=== PATIENT | female | born 1940 | race Caucasian/White ===

== ENCOUNTER 2020-05-03 08:21 | Outpatient (REF) | payer MEDICARE, SELFPAY ==
--- NOTE | 2020-05-03 08:26 | MM_ITS ---
EXAMINATION: MM SCREENING DIGITAL BREAST TOMOSYNTHESIS, BILATERAL CLINICAL INFORMATION: Screening. Asymptomatic. The lifetime risk of breast cancer based on the Tyrer-Cuzick Model is 2%. COMPARISON: Mammography: 05/01/2019, 04/25/2018, 04/10/2017 TECHNIQUE: Digital breast tomosynthesis is performed in both the craniocaudal and mediolateral oblique views along with computer-aided detection (CAD). Synthesized 2D images are generated from the tomosynthesis. Additional left cleavage view is provided. FINDINGS: There are scattered areas of fibroglandular density (ACR BI-RADS breast composition Category b). There are no significant masses, abnormal calcifications, or other abnormalities. No significant changes from prior exams. MM/MM tomosynthesis screening BI IMPRESSION: No mammographic evidence of malignancy. ASSESSMENT: BI-RADS 1: Negative RECOMMENDATION: Routine annual mammography screening. This patient's information was entered into a reminder system with a target due date for their next mammogram.
== END 2020-05-03 08:22 | disposition home or self-care (01) ==
LOC: HO.MAMMO 08:21
PROVIDERS: Visit Provider Family Medicine
DX: Z12.31 Encounter for screening mammogram for malignant neoplasm of breast (principal)
CPT/HCPCS: 77063; 77067

== ENCOUNTER 2020-12-16 13:07 | Inpatient (IN) | payer MEDICARE, SELFPAY ==
--- NOTE | ~2020-12-16 | XR_ITS ---
EXAMINATION: XR CHEST CLINICAL INFORMATION: SOB COMPARISON: None TECHNIQUE: 2 views of the chest were obtained. FINDINGS: There is moderate opacity in the left lung base from pleural effusion and underlying consolidation/atelectasis. There is increased interstitial/vascular markings most predominantly in the right lung. There is no right-sided pleural effusion. No right-sided consolidation seen. The heart size is likely normal. No gross bony abnormality seen. XR/XR chest 2V IMPRESSION: Moderate left lower lobe opacity likely pleural effusion with underlying consolidation/atelectasis. Increased right lung vascular/interstitial markings question edema/pneumonitis.
--- NOTE | ~2020-12-16 | CT_ITS ---
EXAMINATION: CT CHEST WITHOUT CONTRAST CLINICAL INFORMATION: Shortness of breath COMPARISON: Chest radiograph earlier today TECHNIQUE: Multidetector volumetric CT imaging of the chest was done. Axial MIP volume rendering provided. Sagittal and coronal reformatted images were obtained. This CT examination was performed using dose optimization techniques as appropriate, variously including the following: *Automated exposure control *Adjustment of mA and/or kV according to patient size (this includes techniques or standardized protocols for targeted exams where dose is matched to indication/reason for exam; i.e. extremities or head) *Use of iterative reconstruction technique DLP: 193 mGy-cm FINDINGS: This study is degraded by marked motion artifact. LUNGS AND PLEURA: Left lower lobe atelectasis/collapse with some bronchiectasis is present. Similar but much less marked changes present in the lingula. With the volume loss seen in the left hemithorax, there is mild shift of the mediastinum to the left. No focal worrisome lung masses seen. A small right effusion is present and a smaller left effusion/pleural thickening/rind is present. Mild increased interstitial markings could represent some mild CHF. MEDIASTINUM: Heart size is within normal limits. Small mediastinal lymph nodes are present. It is difficult to assess for hilar adenopathy without IV contrast. Air is present in the main pulmonary artery. Please correlate with any IV access or effusions. No distal pulmonary air emboli are seen.. AXILLA: No lymphadenopathy. UPPER ABDOMEN: Unremarkable. OSSEOUS STRUCTURES: Degenerative changes are present in the spine. CT/CT chest wo con IMPRESSION: The finding on the chest x-ray is probably accounted for by left lower lobe collapse/atelectasis. Only a small probably loculated pleural effusion is seen which wraps around the hemithorax and is of average only 7 mm thick. A small layering right pleural effusion is present. Slight increase in interstitial markings may represent mild CHF.
--- NOTE | 2020-12-16 13:16 | ED_ITS ---
HPI - SOB/Dyspnea General Chief Complaint: Dyspnea Stated Complaint: SOB Time Seen by Provider: 12/16/20 13:13 Source: patient and EMS Mode of arrival: EMS Limitations: no limitations History of Present Illness HPI Narrative: 80-year-old female with a past medical history of non-Hodgkin's lymphoma in remission (received chemo/radiation 2014-followed by oncologist ROLA), sleep apnea, cardiomyopathy, pneumonia here with complaints of chest congestion with yellow sputum and cough with some chest tightness for 2 days. Feeling generally unwell for the last several days. No fevers or chills. Spoke to her primary and referred in for further evaluation. Per EMS noted to be 91% on room air improved to 95% on 2 L of nasal cannula. Related Data Home Medications Medication Instructions Recorded Confirmed albuterol sulfate 5 mg/mL(0.5 %) 0.5 ml INHALATION BID PRN 12/16/20 12/16/20 solution for nebulization albuterol sulfate 90 mcg/actuation 2 puff PO QID PRN 12/16/20 12/16/20 aerosol inhaler aspirin 81 mg tablet,delayed 81 mg PO DAILY 12/16/20 12/16/20 release bisoprolol fumarate 5 mg tablet 0.5 tab PO DAILY 12/16/20 12/16/20 famotidine 20 mg tablet (Pepcid) 20 mg PO DAILY PRN 12/16/20 12/16/20 fluticasone fur. 200 mcg-umeclid 1 puff INHALATION DAILY 12/16/20 12/16/20 62.5 mcg-vilant 25 mcg inhalat.powder (Trelegy Ellipta) meloxicam 7.5 mg tablet 1 tab PO DAILY 12/16/20 12/16/20 multivitamin 1 tab PO DAILY 12/16/20 12/16/20 polyethylene glycol 3350 17 gram 17 g PO DAILY PRN 12/16/20 12/16/20 oral powder packet (Miralax) sodium chloride 7 % for 4 ml INHALATION BID PRN 12/16/20 12/16/20 nebulization vitamin B complex 1 tab PO DAILY 12/16/20 12/16/20 Allergies Allergy/AdvReac Type Severity Reaction Status Date / Time codeine Allergy Unknown Verified 12/16/20 14:36 fish derived [fish] Allergy Nausea and Verified 12/16/20 14:36 Vomiting Sulfa (Sulfonamide Allergy Unknown Verified 12/16/20 14:36 Antibiotics) tetanus and diphtheria Allergy Unknown Verified 12/16/20 14:36 toxoids Review of Systems Review of Systems: Yes all other systems are reviewed and are negative Constitutional: Constitutional: Reports no additional constitutional complaints, Denies body ache(s), Denies chills, Denies fever(s), Denies headache(s) and Denies weakness Eyes: Eyes: Reports no additional eye complaints and Denies change in vision ENT: Reports system reviewed and no additional complaints, except as documented, Denies dizziness, Denies headache(s), Denies nasal congestion, Denies nasal discharge and Denies neck pain Cardiovascular: Cardiovascular: Reports no additional cardiovascular complaints, Reports chest pain (chest tightness), Denies leg edema and Reports dyspnea Respiratory: Respiratory: Reports no additional respiratory complaints, Reports cough and Reports dyspnea Gastrointestinal: Gastrointestinal: Reports no additional gastrointestinal com plaints, Denies abdominal pain, Denies diarrhea, Denies nausea and Denies vomiting Genitourinary: Genitourinary: Reports no additional female genitourinary complaints and Denies urinary incontinence Musculoskeletal: Musculoskeletal: Reports no additional musculoskeletal complaints, Denies back pain, Denies arthralgias, Denies joint swelling, Denies neck pain, Denies numbness and Denies tingling Integumentary/Breasts: Skin/Breast: Reports system reviewed and no additional complaints, except as docu and Denies rash Neurologic: Reports system reviewed and no additional complaints, except as documented, Denies Abnormal speech present, Denies dizziness, Denies headache(s), Denies numbness, Denies tingling and Denies weakness [facility] Past Medical History Attestation statement: The following information was validated with the patient. Source: old records reviewed and nursing notes reviewed Medical History (Updated 12/16/20 @ 17:42 by Soheila Erazo NP) COPD (chronic obstructive pulmonary disease) Heart failure Knee abrasion Non-Hodgkin lymphoma in remission Pneumonia Stroke due to embolism TIA (transient ischemic attack) Surgical History (Updated 12/16/20 @ 13:46 by Avi Manrique) Total knee replacement status Social History Social History Advance Directives: No Advance Directives Information Provided: No Physical Exam Vital Signs: Vital Signs: Last Vital Signs Temp 98.6 F 12/16/20 15:13 Pulse 67 12/16/20 15:13 Resp 18 12/16/20 15:13 BP 139/103 H 12/16/20 15:13 Pulse Ox 100 12/16/20 15:13 Oxygen Flow Rate 2 12/16/20 13:39 Body Mass Index 27.8 Const: General: cooperative, healthy appearing, comfortable and no acute distress Orientation/consciousness: patient oriented x3 Limitations: no limitations HENMT: Head: Yes normal to inspection Ears: hearing grossly normal bilaterally General nose exam: Normal external nose present Face and sinus: Yes normal facial exam Mouth: Normal oral and palatal mucosa present Throat: Yes posterior oropharynx normal Eyes: General: appearance normal, both eyes and all related structures Pupils: Equal, round and reactive pupils present Neck: Neck: Yes normal visual inspection Chest: Chest palpation & inspection: normal inspection of the chest Resp: Other: Diminished breath sounds in the bases, upper airway congestion noted. Effort & Inspection: normal respiratory effort Cardio: Rate: regular rate Rhythm: regular rhythm Peripheral pulses: Peripheral pulses 2+ throughout GI: Inspection: Yes normal to inspection Palpation (GI): Soft to palpation and nontender Auscultation: normal bowel sounds Back/Spine/Pelvis: Thoracic/Lumbar Spine: thoracic and lumbar spine normal to inspection Skin: General skin exam: no rashes or lesions noted Neuro: General: patient oriented x3, no focal motor deficits and normal sensation to monofilament Cranial nerves: Yes Equal, round and reactive pupils present Cognition (Neuro): normal cognition Speech: No Abnormal speech present Gait exam (Neuro): Normal gait present Motor exam (neuro): 5/5 motor strength present throughout Extrem: General: Yes normal to inspection, Yes no pedal edema and Yes no calf tenderness Course Course Course Narrative: 80-year-old female here with complaints of chest tightness, mild shortness of breath, for productive cough with yellow sputum for 2 days wi th several days of malaise and generally feeling unwell. No fevers or chills. Did outpatient COVID test is negative. On arrival well appearing. Patient had some mild hypoxia for EMS but this is improved on 2 L of nasal cannula. Speaking full sentences. No respiratory distress noted. Will check chest x-ray, labs, EKG, COVID screen 1430-chest x-ray is concerning for AA moderate left lower lobe up a city with a effusion noted. Also increased right lung vasculature with interstitial markings questioning edema versus pneumonitis. No history of CHF. At on BNP. Patient walked approximately 10 steps to the bathroom and on return was very tachypneic with shortness of breath and wheezing. Improved with rest. At this time infection is suspected. Antibiotics ordered. Ordered diagnostic/therapeutic thoracentesis. Will require admission. 1515-BNP elevated. No history of same. This in addition to chest x-ray findings concerning for edema will give a small amount of Lasix. Medicine informed of need for admission. 1559-Discussed with Hue ONEAL who agreed with admission. MDM - SOB/Dyspnea Differential Diagnosis Differential diagnosis: Likely pneumonia Medical Records Attestation: I reviewed the patient's medical records. Lab Data Attestation: I reviewed the patient's lab results. Result diagrams: 12/16/20 14:12 12/16/20 14:12 Labs: Lab Results 12/16/20 12/16/20 12/16/20 Range/Units 14:12 14:12 14:12 WBC 6.5 (4.8-10.8) X10*3/uL RBC 3.36 L (4.20-5.50) X10*6/uL Hgb 10.2 L (12.0-16.0) g/dl Hct 31.3 L (37-47) % MCV 93.2 (80-98) fL MCH 30.4 (27.0-33.0) pg MCHC 32.6 (31.0-35.0) g/dl RDW 13.4 (11.0-16.0) % Plt Count 255 (160-400) X10*3/uL MPV 10.2 (9.4-12.3) fL Immature Gran % (Auto) 0.3 (0.0-0.4) % Neut % (Auto) 56.0 (45-73) % Lymph % (Auto) 32.2 (20-40) % [place] % (Auto) 7.0 (2-11) % Eos % (Auto) 3.7 (0-4) % Baso % (Auto) 0.8 (0-2) % Lymph # (Auto) 2.1 (1.2-4.9) X10*3/uL [place] # (Auto) 0.5 (0.1-1.2) X10*3/uL Eos # (Auto) 0.2 (0.0-0.4) X10*3/uL Baso # (Auto) 0.1 (0.0-0.2) X10*3/uL Abs Immat Gran (auto) 0.02 (0.00-0.03) X10*3/uL Absolute Neuts (auto) 3.7 (2.0-8.3) X10*3/uL Absolute Nucleated RBC 0.000 (0.0-0.012) X10*3/uL Nucleated RBC % (auto) 0.0 (0.0-0.2) /100WBC PT (9.9-13.0) SEC INR (0.9-1.1) APTT (24.1-38.0) SEC Sodium 140 (135-145) mmol/L Potassium 4.0 (3.3-5.1) mmol/L Chloride 111 H (96-108) mmol/L Carbon Dioxide 21 L (22-29) mmol/L Anion Gap 12 (12-20) BUN 13 (9-16) mg/dL Creatinine 0.86 (0.5-1.4) mg/dL Estim Creat Clear Calc 43.4 Estimated GFR > 60 Random Glucose 90 (60-115) mg/dL Lactic Acid (0.5-2.0) mmol/L Calcium 8.6 (8.4-10.2) mg/dL Magnesium 1.8 (1.6-2.6) mg/dL Total Bilirubin 0.5 (0.0-1.0) mg/dL Direct Bilirubin 0.2 (0.0-0.5) mg/dL AST 35 H (5-31) U/L ALT 33 H (0-31) U/L Alkaline Phosphatase 74 (39-117) U/L Troponin I High Sens 7.5 (<3.5-17.0) ng/L B-Natriuretic Peptide 1450 H (<100) pg/mL Total Protein 6.4 L (6.5-8.0) g/dL Albumin 3.7 (3.5-5.0) g/dL 08/23/21 08/23/21 Range/Units 14:12 14:12 WBC (4.8-10.8) X10*3/uL RBC (4.20-5.50) X10*6/uL Hgb (12.0-16.0) g/dl Hct (37-47) % MCV (80-98) fL MCH (27.0-33.0) pg MCHC (31.0-35.0) g/dl RDW (11.0-16.0) % Plt Count (160-400) X10*3/uL MPV (9.4-12.3) fL Immature Gran % (Auto) (0.0-0.4) % Neut % (Auto) (45-73) % Lymph % (Auto) (20-40) % [place] % (Auto) (2-11) % Eos % (Auto) (0-4) % Baso % (Auto) (0-2) % Lymph # (Auto) (1.2-4.9) X10*3/uL [place] # (Auto) (0.1-1.2) X10*3/uL Eos # (Auto) (0.0-0.4) X10*3/uL Baso # (Auto) (0.0-0.2) X10*3/uL Abs Immat Gran (auto) (0.00-0.03) X10*3/uL Absolute Neuts (auto) (2.0-8.3) X10*3/uL Absolute Nucleated RBC (0.0-0.012) X10*3/uL Nucleated RBC % (auto) (0.0-0.2) /100WBC PT 11.5 (9.9-13.0) SEC INR 1.0 (0.9-1.1) APTT 32.1 (24.1-38.0) SEC Sodium (135-145) mmol/L Potassium (3.3-5.1) mmol/L Chloride (96-108) mmol/L Carbon Dioxide (22-29) mmol/L Anion Gap (12-20) BUN (9-16) mg/dL Creatinine (0.5-1.4) mg/dL Estim Creat Clear Calc Estimated GFR Random Glucose (60-115) mg/dL Lactic Acid 0.9 (0.5-2.0) mmol/L Calcium (8.4-10.2) mg/dL Magnesium (1.6-2.6) mg/dL Total Bilirubin (0.0-1.0) mg/dL Direct Bilirubin (0.0-0.5) mg/dL AST (5-31) U/L ALT (0-31) U/L Alkaline Phosphatase (39-117) U/L Troponin I High Sens (<3.5-17.0) ng/L B-Natriuretic Peptide (<100) pg/mL Total Protein (6.5-8.0) g/dL Albumin (3.5-5.0) g/dL Imaging Data Chest x-ray: Attestation: I personally reviewed and interpreted this imaging study as follows: Radiologist's impression: [place] [id number] XRay Report Signed Patient: Chyna Hernandez MR#: [id number] : 1940 Acct:[id number] Age/Sex: 80 / F ADM Date: 12/16/20 Loc: HO.ED Attending Dr: Ordering Physician: Soheila Erazo NP Date of Service: 12/16/20 Procedure(s): XR chest 2V Accession Number(s): [id number] cc: Soheila Erazo NP~ EXAMINATION: XR CHEST CLINICAL INFORMATION: SOB COMPARISON: None TECHNIQUE: 2 views of the chest were obtained. FINDINGS: There is moderate opacity in the left lung base from pleural effusion and underlying consolidation/atelectasis. There is increased interstitial/vascular markings most predominantly in the right lung. There is no right-sided pleural effusion. No right-sided consolidation seen. The heart size is likely normal. No gross bony abnormality seen. XR/XR chest 2V IMPRESSION: Moderate left lower lobe opacity likely pleural effusion with underlying consolidation/atelectasis. ? Increased right lung vascular/interstitial markings question edema/pneumonitis. ECG Data Attestation: I personally reviewed and interpreted this ECG as follows: ECG interpretation date: 12/16/20 ECG interpretation time: 14:05 Interpretation: Normal sinus rhythm with a rate of 78, normal [place], normal QRS, normal QT Discharge Plan Discharge Clinical Impression: Pleural effusion, Shortness of breath Patient Disposition: Admitted As Inpatient
--- NOTE | 2020-12-16 13:21 | ECG_ITS ---
Test Reason : SOB Blood Pressure : / mmHG Vent. Rate : 078 BPM Atrial Rate : 078 BPM P-R Int : 152 ms QRS Dur : 090 ms QT Int : 396 ms P-R-T Axes : 052 -37 093 degrees QTc Int : 451 ms Normal sinus rhythm Left axis deviation Low voltage QRS Cannot rule out Anteroseptal infarct , age undetermined Abnormal ECG No previous ECGs available Referred By: Soheila Erazo Electronically Signed By:LAZARO LUNA
[2020-12-16 13:39] VITALS: BP 140/77; BP 148/82; PULSE 80; RESP 16; O2SAT 100; BMI 27.8
[2020-12-16 14:18] LABS: MANUAL DIFF FLAG NO
[2020-12-16 14:29] LABS: Basophils Absolute Auto 0.1 X10*3/uL (0.0-0.2); Basophils Percent Auto 0.8 % (0-2); Eosinophils Absolute Auto 0.2 X10*3/uL (0.0-0.4); Eosinophils Percent Auto 3.7 % (0-4); Hematocrit 31.3 % (37-47); Hemoglobin 10.2 g/dl (12.0-16.0); Imm Gran Abs Auto 0.02 X10*3/uL (0.00-0.03); Imm Gran Pct Auto 0.3 % (0.0-0.4); Lymphocytes Absolute Auto 2.1 X10*3/uL (1.2-4.9); Lymphocytes Percent Auto 32.2 % (20-40); Mean Corpuscular HGB Conc 32.6 g/dl (31.0-35.0); Mean Corpuscular Hemoglobin 30.4 pg (27.0-33.0); Mean Corpuscular Volume 93.2 fL (80-98); Mean Platelet Volume 10.2 fL (9.4-12.3); Monocytes Absolute Auto 0.5 X10*3/uL (0.1-1.2); Neutrophils Absolute Auto 3.7 X10*3/uL (2.0-8.3); Platelet Count 255 X10*3/uL (160-400); Red Blood Count 3.36 X10*6/uL (4.20-5.50); Red Cell Distribution Width 13.4 % (11.0-16.0); White Blood Count 6.5 X10*3/uL (4.8-10.8)
[2020-12-16 14:33] LABS: Prothrombin Time 11.5 SEC (9.9-13.0)
[2020-12-16 14:36] LABS: Lactic Acid 0.9 mmol/L (0.5-2.0)
[2020-12-16 14:40] LABS: Partial Thromboplastin Time 32.1 SEC (24.1-38.0)
[2020-12-16 14:41] LABS: Alanine Aminotransferase 33 U/L (0-31); Albumin Level 3.7 g/dL (3.5-5.0); Alkaline Phosphatase 74 U/L (39-117); Anion Gap 12 (12-20); Aspartate Amino Transferase 35 U/L (5-31); Bilirubin Direct 0.2 mg/dL (0.0-0.5); Bilirubin Total 0.5 mg/dL (0.0-1.0); Blood Urea Nitrogen 13 mg/dL (9-16); Calcium 8.6 mg/dL (8.4-10.2); Carbon Dioxide 21 mmol/L (22-29); Chloride 111 mmol/L (96-108); Creatinine Clr Calc Pharmacy 43.4; Estimated Glomerular Filt Rate > 60; Glucose Random 90 mg/dL (60-115); Magnesium 1.8 mg/dL (1.6-2.6); Sodium 140 mmol/L (135-145); Total Protein 6.4 g/dL (6.5-8.0)
[2020-12-16 14:45] LABS: Troponin-I High Sensitivity 7.5 ng/L (<3.5-17.0)
[2020-12-16] MEDS: cefTRIAXone sodium 1 GM in 0.9 % Sodium Chloride 50 ML IV (15:01)
[2020-12-16 15:02] LABS: B Type Natriuretic Peptide 1450 pg/mL (<100)
[2020-12-16 15:13] VITALS: BP 139/103; PULSE 67; RESP 18; TEMP 37; O2SAT 100
--- NOTE | 2020-12-16 15:15 | PHA.MEDREC ---
Pharmacy Consult ? Medication Reconciliation Pharmacy has completed the medication reconciliation.
--- NOTE | 2020-12-16 16:36 | PM.EVENT ---
Event Note Date of Service: 12/16/20 Event Note: Patient seen and examined independently and was present during burch portion of E/M service. Agree with midlevel's history, physical, assessment, and plan. 80F presented with sob found to have pleural effusion Pleural effusion Concern for malignant effusion Thoracentesis
--- NOTE | 2020-12-16 16:43 | PM.IMHP ---
History of Present Illness Date of Service: 12/16/20 Chief Complaint: Pleural effusion 80 year old women Presenting with increased shortness of breath. She reports around 230 this morning she felt short of breath. However she reported last she felt like she had the flu with chills and achiness. She had called her jawbone breaker today and explained her symptoms and was told to come to the ER for further evaluation. She denied recent illness, fever, chills, exposure to COVID. She does have a history of lymphoma and underwent chemotherapy and radiation 2013, since then she has had no further treatment and has been doing well. BNP was noted to be elevated at 1450 however she did not appear to be in overt heart failure. Chest x-ray showed moderate left lower lobe opacity likely pleural effusion with underlying consolidation versus atelectasis with increased right lung vasculature questioning edema versus pneumonitis. Chest CT is pending. All of her other labs within acceptable limits. Vital signs are stable. Blood pressure is mildly elevated with patient reports feeling quite anxious. She was started on ceftriaxone and azithromycin in the ER and also given a dose of IV Lasix. She will be admitted for further management and treatment of pleural effusion. Review of Systems Review of Systems: Denies any recent fever chills or decrease in appetite respiratory See HPIn cardiovascular denies chest pain gastrointestinal denies any dysphagia abdominal pain nausea vomiting or diarrhea genitourinary denies any dysuria frequency or hematuria musculoskeletal denies any joint pain or swelling neuropsych denies any weakness or seizures all other systems reviewed are negative [facility] Medical History (Updated 12/16/20 @ 17:42 by Soheila Erazo NP) COPD (chronic obstructive pulmonary disease) Heart failure Knee abrasion Non-Hodgkin lymphoma in remission Pneumonia Stroke due to embolism TIA (transient ischemic attack) Surgical History (Updated 12/16/20 @ 13:46 by Avi Manrique) Total knee replacement status Social History Housing: House Do you presently have visiting nurse or other home services: No Patient Tobacco Use Status: Former Tobacco user Tobacco use type: Cigarette Smoked in Last 30 Days: No Use of substances other than those prescribed or required for medical reasons: No Have you been hit, kicked, punched, or otherwise hurt by someone within the past year? If so, by whom?: No Do you feel safe in your current relationship?: No Current Relationship Is there a partner from a previous relationship who is making you feel unsafe now?: No Are you made to feel afraid or neglected: No Advance Directives: No Advance Directives Information Provided: No Do you have thoughts of harming others: None Do you have a plan to hurt others: No Plan Recently lost weight without trying: No How much weight loss: Not applicable Eating poorly because of decreased appetite: No Nutrition screen score: 0 Nutrition Risks: No Nutritional Risk Meds Allergies Allergy/AdvReac Type Severity Reaction Status Date / Time codeine Allergy Unknown Verified 12/16/20 14:36 fish derived [fish] Allergy Nausea and Verified 12/16/20 14:36 Vomiting Sulfa (Sulfonamide Allergy Unknown Verified 12/16/20 14:36 Antibiotics) tetanus and diphtheria Allergy Unknown Verified 12/16/20 14:36 toxoids Active Medications: Current Medications Generic Name Dose Route Start Last Admin Trade Name Freq PRN Reason Stop Dose Admin Pharmacy Consult 1 each 12/16/20 14:27 Consult Rx Perform Med Rec MISCELLANE ONCE PRN Consult order Home Medications Medication Instructions Recorded Confirmed Last Taken Type albuterol sulfate 5 mg/mL(0.5 %) 0.5 ml INHALATION BID PRN 12/16/20 12/16/20 12/16/20 History solution for nebulization albuterol sulfate 90 mcg/actuation 2 puff PO QID PRN 12/16/20 12/16/20 12/16/20 History aerosol inhaler aspirin 81 mg tablet,delayed 81 mg PO DAILY 12/16/20 12/16/20 12/15/20 History release bisoprolol fumarate 5 mg tablet 0.5 tab PO DAILY 12/16/20 12/16/20 12/15/20 History famotidine 20 mg tablet (Pepcid) 20 mg PO DAILY PRN 12/16/20 12/16/20 12/16/20 History fluticasone fur. 200 mcg-umeclid 1 puff INHALATION DAILY 12/16/20 12/16/20 12/15/20 History 62.5 mcg-vilant 25 mcg inhalat.powder (Trelegy Ellipta) meloxicam 7.5 mg tablet 1 tab PO DAILY 12/16/20 12/16/20 12/15/20 History multivitamin 1 tab PO DAILY 12/16/20 12/16/20 12/15/20 History polyethylene glycol 3350 17 gram 17 g PO DAILY PRN 12/16/20 12/16/20 Unknown History oral powder packet (Miralax) sodium chloride 7 % for 4 ml INHALATION BID PRN 12/16/20 12/16/20 12/16/20 History nebulization vitamin B complex 1 tab PO DAILY 12/16/20 12/16/20 12/15/20 History Physical Exam Vital Signs and Narrative: Vital Signs: Last Vital Signs Temp 98.6 F 12/16/20 15:13 Pulse 67 12/16/20 15:13 Resp 18 12/16/20 15:13 BP 139/103 H 12/16/20 15:13 Pulse Ox 100 12/16/20 15:13 Oxygen Flow Rate 2 12/16/20 13:39 Body Mass Index 27.8 Appearing in no acute distress head is normocephalic atraumatic eyes pupils are PERRLA sclera is anicteric mouth throat mucous membranes are intact and moist neck is supple no lymphadenopathy, no JVD noted lung sounds some coarse areas throughout otherwise clear heart regular rate rhythm, clear S1, S2 positive bowel sounds, abdomen is soft, nontender neuro patient is alert x3, no focal deficits Results Labs CBC and Chem 7: 12/17/20 06:38 12/17/20 06:38 Labs: Laboratory Results - last 24 hr 12/16/20 12/16/20 12/16/20 14:12 14:12 14:12 MCV 93.2 MCH 30.4 MCHC 32.6 RDW 13.4 Plt Count 255 MPV 10.2 Immature Gran % (Auto) 0.3 Neut % (Auto) 56.0 Lymph % (Auto) 32.2 [place] % (Auto) 7.0 Eos % (Auto) 3.7 Baso % (Auto) 0.8 Lymph # (Auto) 2.1 [place] # (Auto) 0.5 Eos # (Auto) 0.2 Baso # (Auto) 0.1 Abs Immat Gran (auto) 0.02 Absolute Neuts (auto) 3.7 Absolute Nucleated RBC 0.000 Nucleated RBC % (auto) 0.0 PT INR APTT Anion Gap 12 Estim Creat Clear Calc 43.4 Estimated GFR > 60 Random Glucose 90 Lactic Acid Calcium 8.6 Magnesium 1.8 Total Bilirubin 0.5 Direct Bilirubin 0.2 AST 35 H ALT 33 H Alkaline Phosphatase 74 Troponin I High Sens 7.5 B-Natriuretic Peptide 1450 H Total Protein 6.4 L Albumin 3.7 12/16/20 12/16/20 14:12 14:12 MCV MCH MCHC RDW Plt Count MPV Immature Gran % (Auto) Neut % (Auto) Lymph % (Auto) [place] % (Auto) Eos % (Auto) Baso % (Auto) Lymph # (Auto) [place] # (Auto) Eos # (Auto) Baso # (Auto) Abs Immat Gran (auto) Absolute Neuts (auto) Absolute Nucleated RBC Nucleated RBC % (auto) PT 11.5 INR 1.0 APTT 32.1 Anion Gap Estim Creat Clear Calc Estimated GFR Random Glucose Lactic Acid 0.9 Calcium Magnesium Total Bilirubin Direct Bilirubin AST ALT Alkaline Phosphatase Troponin I High Sens B-Natriuretic Peptide Total Protein Albumin Imaging Radiologist's Impressions: Impressions Chest X-Ray 12/16/20 13:22 IMPRESSION: Moderate left lower lobe opacity likely pleural effusion with underlying consolidation/atelectasis. Increased right lung vascular/interstitial markings question edema/pneumonitis. Assessment and Plan (1) Pleural effusion: Status: Acute 72-year-old woman presenting with increased shortness of breath Pleural effusions. scheduled for thoracentesis tomorrow INR in the morning NPO after midnight Send labs and cytology History of COPD, bronchiectasis. Will continue empiric antibiotics, follow cultures Elevated BNP. Does not however appear to be in overt heart failure Repeat BMP tomorrow Hold off on Lasix for now Elevated blood pressure reading. Likely secondary to anxiety Monitor Continue home medications COPD. Does not appear to be in overt exacerbation Continue albuterol as needed DVT prophylaxis with mechanical compression boots due to thoracentesis Quality Stroke Does the patient have a stroke diagnosis?: No VTE Prior VTE?: No VTE Risk Level:: Medical - moderate - high VTE Device Contraindication: N/A - Device Ordered VTE Drug Contraindication: Treatment Not Indicated
[2020-12-16] MEDS: Azithromycin 500 MG in 0.9 % Sodium Chloride 250 ML 125 MG IV (17:10)
[2020-12-16] MEDS: Furosemide 20 MG/2 ML VIAL IVPUSH (17:20)
[2020-12-16 18:24] LABS: Troponin-I High Sensitivity 9.2 ng/L (<3.5-17.0)
[2020-12-16] MEDS: Doxycycline Hyclate 100 MG in 0.9 % Sodium Chloride 250 ML 166.67 MG IV (19:58)
[2020-12-16 20:02] VITALS: BP 113/65; PULSE 68; RESP 18; TEMP 36.9; O2SAT 100
[2020-12-16 20:21] LABS: COVID-19 Test Negative (Negative)
[2020-12-16 21:12] VITALS: BP 127/72; PULSE 71; RESP 18; TEMP 36.9; O2SAT 98
[2020-12-16 22:34] VITALS: BP 134/72; PULSE 68; RESP 18; TEMP 36.7; O2SAT 99
--- NOTE | 2020-12-16 22:46 | PC.NURSE ---
Pt c/o irritation in R AC where PIV is established. This RN assesses for infiltration, no evidence noted. This RN established PIV in L arm. Pt reports no pain in this location. This RN removed R AC PIV. Pt VS to be assessed and charted.
[2020-12-16 23:30] VITALS: BP 116/68; PULSE 66; RESP 16; O2SAT 99
[2020-12-16 23:40] LABS: Glucose Urine UA NEG (NEG); Leukocyte Esterase Urine NEG (NEG); Nitrite Urine NEG (NEG); PH 5.5 (5.0-8.0); Specific Gravity - Urine 1.015 (1.005-1.025); Urine Blood NEG (NEG); Urine Ketones NEG (NEG); Urine Protein NEG (NEG-TRACE)
[2020-12-16 23:44] LABS: Appearance Urine CLEAR; Color Urine YELLOW
[2020-12-17] MEDS: 0.9 % Sodium Chloride Flush 3 ML SYRINGE IVFLUSH ×4 (01:35→20:38)
[2020-12-17 04:00] VITALS: BP 103/56; PULSE 75; RESP 18; TEMP 36; O2SAT 98
[2020-12-17] MEDS: Doxycycline Hyclate 100 MG in 0.9 % Sodium Chloride 250 ML 166.67 MG IV (06:14)
[2020-12-17 07:11] LABS: MANUAL DIFF FLAG NO
[2020-12-17 07:19] LABS: Basophils Absolute Auto 0.1 X10*3/uL (0.0-0.2); Basophils Percent Auto 0.9 % (0-2); Eosinophils Absolute Auto 0.4 X10*3/uL (0.0-0.4); Eosinophils Percent Auto 6.1 % (0-4); Hematocrit 30.6 % (37-47); Imm Gran Abs Auto 0.03 X10*3/uL (0.00-0.03); Imm Gran Pct Auto 0.5 % (0.0-0.4); Lymphocytes Percent Auto 34.7 % (20-40); Mean Corpuscular HGB Conc 32.7 g/dl (31.0-35.0); Mean Corpuscular Hemoglobin 30.7 pg (27.0-33.0); Mean Corpuscular Volume 93.9 fL (80-98); Mean Platelet Volume 10.5 fL (9.4-12.3); Monocytes Absolute Auto 0.5 X10*3/uL (0.1-1.2); Monocytes Percent Auto 9.2 % (2-11); Neutrophils Absolute Auto 2.9 X10*3/uL (2.0-8.3); Neutrophils Percent Auto 48.6 % (45-73); Platelet Count 220 X10*3/uL (160-400); Red Blood Count 3.26 X10*6/uL (4.20-5.50); Red Cell Distribution Width 13.4 % (11.0-16.0); White Blood Count 5.9 X10*3/uL (4.8-10.8)
[2020-12-17 07:23] LABS: INTERNATIONAL NORM RATIO 1.1 (0.9-1.1); Prothrombin Time 12.5 SEC (9.9-13.0)
[2020-12-17 07:34] LABS: Glucose, Whole Blood 97 mg/dL (60-115)
[2020-12-17 07:44] LABS: Anion Gap 15 (12-20); Blood Urea Nitrogen 13 mg/dL (9-16); Calcium 8.4 mg/dL (8.4-10.2); Carbon Dioxide 21 mmol/L (22-29); Chloride 110 mmol/L (96-108); Creatinine Clr Calc Pharmacy 43.4; Estimated Glomerular Filt Rate > 60; Glucose Random 95 mg/dL (60-115); Sodium 142 mmol/L (135-145)
[2020-12-17 08:00] VITALS: BP 126/71; PULSE 69; RESP 16; TEMP 36.1; O2SAT 96
--- NOTE | 2020-12-17 08:00 | CA_ITS ---
Transthoracic Echocardiogram Patient (Last, First, Middle): Parent, Zaira Clemente Gender: Female Date of : 1940 Age: 80 Procedure Date: 12/17/2020 Procedure Type: Transthoracic Echocardiogram Location: S3E Height: 149.86 cm Weight: 62.6 kg BSA: 1.57 m2 Heart Rate: bpm BP: 103 / 56 mmHg Trade Embalmer: Referring MD: Hue Vitale NP Symptoms: elevated BNP Study Quality: Fair ECG Rhythm: Sinus Conclusions: - The left ventricular systolic function is mildly decreased. The visually estimated ejection fraction is between 40-45%. - The basal inferior segment is akinetic. - Normal right ventricular cavity size and systolic function. - The left atrium is severely dilated. Findings Left Ventricle Normal left ventricular cavity size. There is mildly increased left ventricular wall thickness. The left ventricular systolic function is mildly decreased. The visually estimated ejection fraction is between 40-45%. There is evidence of regional wall motion abnormalities. Abnormal diastolic function is noted. Spectral Doppler is indicative of a pseudonormal filling pattern. E/E prime ratio is >15, consistent with elevated filling pressures. Wall Motion Rest Echo Findings The basal inferior segment is akinetic. Right Ventricle Normal right ventricular cavity size and systolic function. Atria The left atrium is severely dilated. Aortic Valve Normal aortic valve structure and function. There is no aortic valve stenosis. There is no aortic valve regurgitation. Mitral Valve The mitral valve appears normal. There is moderate mitral valve regurgitation. There is no mitral valve stenosis. Tricuspid Valve Normal tricuspid valve structure and function. There is mild tricuspid valve regurgitation. Great Vessels The pulmonary artery was not well visualized. There is mild dilatation of the ascending aorta. Venous The inferior vena cava is normal in size and does not collapse with inspiration. Pericardium/Pleural There is no evidence of pericardial effusion. Prior Study Comparison No prior study available for comparison. Measurements 2D Linear Measurements IVSd: 0.98 0.6-0.9/0.6-1.0 cm LVIDd: 4.55 3.9-5.3/4.2-5.9 cm LVIDd Index: 2.90 2.4-3.2/2.2-3.1 cm/m2 LVIDs: 3.64 2.0-3.6 cm LVPWd: 0.98 0.7-1.1 cm Ao Root: 3.10 2.1-3.5 cm LA Diam: 4.60 2.7-3.8/3.0-4.0 cm LAIDs Index: 2.93 1.5-2.3 cm/m2 LV Mass: 190.03 67-162/88-224 g LV Mass Index: 121.04 43-95/49-115 g/m2 LVOT Diam: 2.00 3.0+(-)1.3 cm 2D Systolic Function EF 4C: 33.30 >55% EF 2C: 47.50 >55% EF BiP: 44.00 >55% Mitral Valve MV Pk E: 0.92 MV PK A: 0.57 MV Decel Time: 242.00 E/A: 1.60 E'Lateral: 6.74 E'Medial: 3.05 E/E' Med: 30.10 E/E' Lat: 13.60 PHT: 71.00 MVA PHT: 3.10 Decel [place]: 3.79 Aortic Valve AoV Pk Dale: 1.33 AoV Mn Dale: 0.96 AoV VTI: 0.35 AoV Pk Grad: 7.00 Aov Mn Grad: 4.00 TEREZA Cont.VTI: 1.72 LVOT LVOT Pk Dale: 0.79 LVOT Mn Dale: 0.47 LVOT VTI: 0.19 LVOT Pk Grad: 2.00 LVOT Mn Grad: 1.00 LVOT Diam: 2.00 LVOT Area: 3.14 Diastolic Function MV Pk E: 0.92 MV Pk A: 0.57 E/A: 1.60 E'Medial: 3.05 E/E' Med: 30.10 E' Laterial: 6.74 E/E' Lat: 13.60 Tricuspid Valve TR Pk Dale: 3.20 TR Pk Grad: 41.00 RA Press: 8.00 RVSP: 49.00 Great Vessels Aorta Ao Root-2D: 3.10 2.0-3.7 cm Ao Asc: 3.30 2.1-3.4 cm Pulmonary Valve PV Pk Dale: 0.84 Peak PV Grad: 3.00 Updated in Other Vendor System with Status of Final Yimi Guerrero MD electronically signed on 12/17/2020 2:20:50 PM with status of Final
[2020-12-17 09:07] LABS: B Type Natriuretic Peptide 1410 pg/mL (<100)
[2020-12-17] MEDS: Furosemide 20 MG/2 ML VIAL IVPUSH (09:11)
--- NOTE | 2020-12-17 09:36 | P.CDIC_ITS ---
CDI Concurrent Query Service Date: 12/17/20 Documentation Clarification: Please clarify if you are treating a proba ble/suspected/likely or confirmed: Acute diastolic and/or systolic Congestive heart failure Acute on chronic diastolic and/or systolic Congestive heart failure Chronic diastolic and/or systolic Congestive heart failure Other, please specify if known or undetermined Provider Response: Other Other Diagnosis: To be determined, pending echo results PLEASE DO NOT DELETE/MODIFY EXISTING CONTENT Additional information is needed in order to code to the highest accuracy and appropriate Severity of Illness (SOI). Please clarify the information noted below in your progress notes and discharge summary. Risk Factors/Clinical Indicators/Treatments PN: CHF - elevated BNP Does not appear to be in overt heart failure BNP 14[address] IV lasix Chest CT 12/16 - interstitial markings may represent mild CHF. ED: PMH: heart failure CDS: Antoinette Bateman CCS, CDIS Contact Number: [phone] Please Review the information above and exercise your independent professional judgment in responding to the query. If you concur, pleas document in the PROGRESS NOTES and DISCHARGE SUMMARY. If you do not agree with the query, please document in the query above. THIS QUERY IS PART OF THE PERMANENT MEDICAL RECORD
--- NOTE | 2020-12-17 09:46 | PM.CNCAR ---
History of Present Illness History of Present Illness Date of Service: 12/17/20 Requesting physician: Arya Neumann Chief complaint: CHF Narrative: Pleasant 80-year-old female who follows with Dr. cortez with [facility]. 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 Her echocardiogram in 2018 has shown an EF of 35-40%. In 2019 she had MRI which showed an EF of 42%. She clinically did not have heart failure. She was on bisoprolol and losartan but could not tolerate losartan due to low blood pressures. She is now presenting with shortness of breath and fatigue and 1 episode of paroxysmal nocturnal dyspnea. Clinically she was noticed to be in heart failure and was given IV diuretics. She is saying she is feeling much better after getting IV Lasix 20 mg. Denies any chest discomfort now but she had some chest pressure like feeling when she was short of breath. Has not been able to tolerate losartan the past as mentioned above. Also had stroke and lost vision partially in the left eye. Carotid ultrasound from November 2020 is showing 50-69% stenosis in the left carotid artery. She has been on baby aspirin and no change in her antiplatelet therapy was done. [facility] Past Medical History Medical History (Updated 12/17/20 @ 10:42 by Yimi Guerrero MD) COPD (chronic obstructive pulmonary disease) Heart failure Knee abrasion Non-Hodgkin lymphoma in remission Pneumonia Stroke due to embolism TIA (transient ischemic attack) Surgical History Surgical History (Updated 12/16/20 @ 13:46 by Avi Manrique) Total knee replacement status Social History Social History Housing: House Do you presently have visiting nurse or other home services: No Patient Tobacco Use Status: Former Tobacco user Tobacco use type: Cigarette Smoked in Last 30 Days: No Use of substances other than those prescribed or required for medical reasons: No Currently Displaying Signs/Symptoms of Drug Intoxication Withdrawal: No Have you been hit, kicked, punched, or otherwise hurt by someone within the past year? If so, by whom?: No Do you feel safe in your current relationship?: No Current Relationship Is there a partner from a previous relationship who is making you feel unsafe now?: No Are you made to feel afraid or neglected: No Advance Directives: No Advance Directives Information Provided: No Do you have thoughts of harming others: None Do you have a plan to hurt others: No Plan Recently lost weight without trying: No How much weight loss: Not applicable Eating poorly because of decreased appetite: No Nutrition screen score: 0 Nutrition Risks: No Nutritional Risk Meds Allergies Allergy/AdvReac Type Severity Reaction Status Date / Time codeine Allergy Unknown Verified 12/16/20 14:36 fish derived [fish] Allergy Nausea and Verified 12/16/20 14:36 Vomiting Sulfa (Sulfonamide Allergy Unknown Verified 12/16/20 14:36 Antibiotics) tetanus and diphtheria Allergy Unknown Verified 12/16/20 14:36 toxoids Active Medications: Current Medications Generic Name Dose Route Start Last Admin Trade Name Freq PRN Reason Stop Dose Admin Acetaminophen 650 mg 12/16/20 16:41 Acetaminophen 325 Mg Tablet PO Q6H PRN Pain, Mild (Pain Scale 1-3) Furosemide 20 mg 12/17/20 09:00 12/17/20 09:11 Furosemide 20 Mg/2 Ml Vial IVPUSH 20 mg DAILY WALDEMAR Administration Protocol Doxycycline Hyclate 100 mg/ 250 mls @ 166.67 mls/hr 12/16/20 17:00 12/17/20 09:08 Sodium Chloride IV Infused Q12H WALDEMAR Infusion Ondansetron HCl 4 mg 12/16/20 16:41 Ondansetron Hcl 4 Mg/2 Ml Vial IVPUSH Q8H PRN Nausea and Vomiting Pharmacy Consult 1 each 12/16/20 14:27 Consult Rx Perform Med Rec MISCELLANE ONCE PRN Consult order Sodium Chloride 3 ml 12/17/20 00:00 12/17/20 09:11 0.9 % Sodium Chloride Flush 3 Ml Syringe IVFLUSH 3 ml QSHIFT WALDEMAR Administration Home Medications Medication Instructions Recorded Confirmed Last Taken Type albuterol sulfate 5 mg/mL(0.5 %) 0.5 ml INHALATION BID PRN 12/16/20 12/16/20 12/16/20 History solution for nebulization albuterol sulfate 90 mcg/actuation 2 puff PO QID PRN 12/16/20 12/16/20 12/16/20 History aerosol inhaler aspirin 81 mg tablet,delayed 81 mg PO DAILY 12/16/20 12/16/20 12/15/20 History release bisoprolol fumarate 5 mg tablet 0.5 tab PO DAILY 12/16/20 12/16/20 12/15/20 History famotidine 20 mg tablet (Pepcid) 20 mg PO DAILY PRN 12/16/20 12/16/20 12/16/20 History fluticasone fur. 200 mcg-umeclid 1 puff INHALATION DAILY 12/16/20 12/16/20 12/15/20 History 62.5 mcg-vilant 25 mcg inhalat.powder (Trelegy Ellipta) meloxicam 7.5 mg tablet 1 tab PO DAILY 12/16/20 12/16/20 12/15/20 History multivitamin 1 tab PO DAILY 12/16/20 12/16/20 12/15/20 History polyethylene glycol 3350 17 gram 17 g PO DAILY PRN 12/16/20 12/16/20 Unknown History oral powder packet (Miralax) sodium chloride 7 % for 4 ml INHALATION BID PRN 12/16/20 12/16/20 12/16/20 History nebulization vitamin B complex 1 tab PO DAILY 12/16/20 12/16/20 12/15/20 History Physical Exam Vital Signs: Vital Signs: Last Vital Signs Temp 97.0 F 12/17/20 08:00 Pulse 69 12/17/20 08:00 Resp 16 12/17/20 08:00 BP 126/71 12/17/20 08:00 Pulse Ox 96 12/17/20 08:00 Oxygen Flow Rate 2 12/16/20 13:39 Body Mass Index 27.8 GENERAL APPEARANCE: in no acute distress, pleasant. NECK: no carotid bruit, + jugular venous distention. SKIN: no suspicious lesions, warm and dry. HEART: no murmurs, regular rate and rhythm. LUNGS: Few crackles at bases. ABDOMEN: soft, nontender. EXTREMITIES: no edema. PERIPHERAL PULSES: equal. Results Labs and Meds Result diagrams: 12/17/20 06:38 12/17/20 06:38 Lab results: Laboratory Results - last 24 hr 12/16/20 12/16/20 12/16/20 14:12 14:12 14:12 WBC 6.5 RBC 3.36 L Hgb 10.2 L Hct 31.3 L MCV 93.2 MCH 30.4 MCHC 32.6 RDW 13.4 Plt Count 255 MPV 10.2 Immature Gran % (Auto) 0.3 Neut % (Auto) 56.0 Lymph % (Auto) 32.2 [place] % (Auto) 7.0 Eos % (Auto) 3.7 Baso % (Auto) 0.8 Lymph # (Auto) 2.1 [place] # (Auto) 0.5 Eos # (Auto) 0.2 Baso # (Auto) 0.1 Abs Immat Gran (auto) 0.02 Absolute Neuts (auto) 3.7 Absolute Nucleated RBC 0.000 Nucleated RBC % (auto) 0.0 PT INR APTT Sodium 140 Potassium 4.0 Chloride 111 H Carbon Dioxide 21 L Anion Gap 12 BUN 13 Creatinine 0.86 Estim Creat Clear Calc 43.4 Estimated GFR > 60 POC Glucose Random Glucose 90 Lactic Acid Calcium 8.6 Magnesium 1.8 Total Bilirubin 0.5 Direct Bilirubin 0.2 AST 35 H ALT 33 H Alkaline Phosphatase 74 Troponin I High Sens 7.5 B-Natriuretic Peptide 1450 H Total Protein 6.4 L Albumin 3.7 Urine Color Urine Appearance Urine pH Ur Specific [place] Urine Protein Urine Glucose (UA) Urine Ketones Urine Blood Urine Nitrite Ur Leukocyte Esterase COVID-19 (PRAVEENA) COVID-19 [employer] 12/16/20 12/16/20 12/16/20 14:12 14:12 17:07 WBC RBC Hgb Hct MCV MCH MCHC RDW Plt Count MPV Immature Gran % (Auto) Neut % (Auto) Lymph % (Auto) [place] % (Auto) Eos % (Auto) Baso % (Auto) Lymph # (Auto) [place] # (Auto) Eos # (Auto) Baso # (Auto) Abs Immat Gran (auto) Absolute Neuts (auto) Absolute Nucleated RBC Nucleated RBC % (auto) PT 11.5 INR 1.0 APTT 32.1 Sodium Potassium Chloride Carbon Dioxide Anion Gap BUN Creatinine Estim Creat Clear Calc Estimated GFR POC Glucose Random Glucose Lactic Acid 0.9 Calcium Magnesium Total Bilirubin Direct Bilirubin AST ALT Alkaline Phosphatase Troponin I High Sens 9.2 B-Natriuretic Peptide Total Protein Albumin Urine Color Urine Appearance Urine pH Ur Specific [place] Urine Protein Urine Glucose (UA) Urine Ketones Urine Blood Urine Nitrite Ur Leukocyte Esterase COVID-19 ([facility]NA) COVID-19 [employer] 12/16/20 12/16/20 12/17/20 20:03 23:35 06:38 WBC RBC Hgb Hct MCV MCH MCHC RDW Plt Count MPV Immature Gran % (Auto) Neut % (Auto) Lymph % (Auto) [place] % (Auto) Eos % (Auto) Baso % (Auto) Lymph # (Auto) [place] # (Auto) Eos # (Auto) Baso # (Auto) Abs Immat Gran (auto) Absolute Neuts (auto) Absolute Nucleated RBC Nucleated RBC % (auto) PT INR APTT Sodium 142 Potassium 4.0 Chloride 110 H Carbon Dioxide 21 L Anion Gap 15 BUN 13 Creatinine 0.86 Estim Creat Clear Calc 43.4 Estimated GFR > 60 POC Glucose Random Glucose 95 Lactic Acid Calcium 8.4 Magnesium Total Bilirubin Direct Bilirubin AST ALT Alkaline Phosphatase Troponin I High Sens B-Natriuretic Peptide Total Protein Albumin Urine Color YELLOW Urine Appearance CLEAR Urine pH 5.5 Ur Specific [place] 1.015 Urine Protein NEG Urine Glucose (UA) NEG Urine Ketones NEG Urine Blood NEG Urine Nitrite NEG Ur Leukocyte Esterase NEG COVID-19 ([facility]) Negative COVID-19 Clin Com See Note 12/17/20 12/17/20 12/17/20 06:38 06:38 07:15 WBC 5.9 RBC 3.26 L Hgb 10.0 L Hct 30.6 L MCV 93.9 MCH 30.7 MCHC 32.7 RDW 13.4 Plt Count 220 MPV 10.5 Immature Gran % (Auto) 0.5 H Neut % (Auto) 48.6 Lymph % (Auto) 34.7 [place] % (Auto) 9.2 Eos % (Auto) 6.1 H Baso % (Auto) 0.9 Lymph # (Auto) 2.0 [place] # (Auto) 0.5 Eos # (Auto) 0.4 Baso # (Auto) 0.1 Abs Immat Gran (auto) 0.03 Absolute Neuts (auto) 2.9 Absolute Nucleated RBC 0.000 Nucleated RBC % (auto) 0.0 PT 12.5 INR 1.1 APTT Sodium Potassium Chloride Carbon Dioxide Anion Gap BUN Creatinine Estim Creat Clear Calc Estimated GFR POC Glucose 97 Random Glucose Lactic Acid Calcium Magnesium Total Bilirubin Direct Bilirubin AST ALT Alkaline Phosphatase Troponin I High Sens B-Natriuretic Peptide Total Protein Albumin Urine Color Urine Appearance Urine pH Ur Specific [place] Urine Protein Urine Glucose (UA) Urine Ketones Urine Blood Urine Nitrite Ur Leukocyte Esterase COVID-19 ([facility]) COVID-19 Clin Com 12/17/20 08:20 WBC RBC Hgb Hct MCV MCH MCHC RDW Plt Count MPV Immature Gran % (Auto) Neut % (Auto) Lymph % (Auto) [place] % (Auto) Eos % (Auto) Baso % (Auto) Lymph # (Auto) [place] # (Auto) Eos # (Auto) Baso # (Auto) Abs Immat Gran (auto) Absolute Neuts (auto) Absolute Nucleated RBC Nucleated RBC % (auto) PT INR APTT Sodium Potassium Chloride Carbon Dioxide Anion Gap BUN Creatinine Estim Creat Clear Calc Estimated GFR POC Glucose Random Glucose Lactic Acid Calcium Magnesium Total Bilirubin Direct Bilirubin AST ALT Alkaline Phosphatase Troponin I High Sens B-Natriuretic Peptide 1410 H Total Protein Albumin Urine Color Urine Appearance Urine pH Ur Specific [place] Urine Protein Urine Glucose (UA) Urine Ketones Urine Blood Urine Nitrite Ur Leukocyte Esterase COVID-19 ([facility]NA) COVID-19 Clin Com Imaging Radiologist's impression: Impressions Chest X-Ray 12/16/20 13:22 IMPRESSION: Moderate left lower lobe opacity likely pleural effusion with underlying consolidation/atelectasis. Increased right lung vascular/interstitial markings question edema/pneumonitis. Chest CT 12/16/20 16:30 IMPRESSION: The finding on the chest x-ray is probably accounted for by left lower lobe collapse/atelectasis. Only a small probably loculated pleural effusion is seen which wraps around the hemithorax and is of average only 7 mm thick. A small layering right pleural effusion is present. Slight increase in interstitial markings may represent mild CHF. Assessment and Plan (1) Acute on chronic congestive heart failure: Status: Acute (2) CVA (cerebral vascular accident): Status: Acute Pleasant 80 year female who is presenting for shortness of breath. She has known history of nonischemic cardiomyopathy with EF of 42% based on cardiac MRI in the past. 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 Clinically, she has presented with congestive heart failure at this time. Agree with IV diuretics at this point. Please monitor I's and O's closely. I think she can stay on IV diuretics today and potentially can get p.o. Lasix from tomorrow. Continue with bisoprolol as before. If blood pressure stays stable then I think we should try low-dose Entresto. Will review echocardiogram. She is describing recent stroke involving the left eye. She has 50 69% carotid disease based on ultrasound recently. She has been on baby aspirin while she had stroke. I think Plavix should be added to aspirin for 21 days and then potentially aspirin can be stopped and she can stay on Plavix monotherapy. She should also get cardiac event monitor through Dr. cortez as outpatient. Thank you for allowing me to participate in the care of your patient. Please feel free to contact me if you have any questions. Procedures Date of Service Date of Service: 12/17/20
--- NOTE | 2020-12-17 10:02 | P.PNIM_ITS ---
Progress Note: A&P (1) Pleural effusion: Status: Acute Assessment and Plan: 72-year-old woman presenting with increased shortness of breath Pleural effusions. Looks like loculated on CT scan, changed form scan at [facility] on 08/05/20 scheduled thoracentesis cancelled History of COPD, bronchiectasis.? Will continue empiric antibiotics, follow cultures Pulmonary consult Elevated BNP.? Does not however appear to be in overt heart failure no hx of heart failure BNP down very little today Echocardiogram pending Lasix 20mg IV cardiology consult Elevated blood pressure reading.? Likely secondary to anxiety Better today Monitor Continue home medications COPD.? Does not appear to be in overt exacerbation Continue albuterol as needed DVT prophylaxis with mechanical compression boots for now Subjective Subjective Date of Service: 12/17/20 Interval History: Follow up sob feeling better today, less sob Physical Exam Vital Signs: Vital Signs: Last Vital Signs Temp 97.0 F 12/17/20 08:00 Pulse 69 12/17/20 08:00 Resp 16 12/17/20 08:00 BP 126/71 12/17/20 08:00 Pulse Ox 96 12/17/20 08:00 Oxygen Flow Rate 2 12/16/20 13:39 Body Mass Index 27.8 Appearing in no acute distress lung sounds are clear to auscultation heart regular rate rhythm, clear S1, S2 positive bowel sounds, abdomen is soft, nontender neuro patient is alert x3, no focal deficits Objective Data Current Medications Generic Name Dose Route Start Last Admin Trade Name Freq PRN Reason Stop Dose Admin Acetaminophen 650 mg 12/16/20 16:41 Acetaminophen 325 Mg Tablet PO Q6H PRN Pain, Mild (Pain Scale 1-3) Furosemide 20 mg 12/17/20 09:00 12/17/20 09:11 Furosemide 20 Mg/2 Ml Vial IVPUSH 20 mg DAILY WALDEMAR Administration Protocol Doxycycline Hyclate 100 mg/ 250 mls @ 166.67 mls/hr 12/16/20 17:00 12/17/20 09:08 Sodium Chloride IV Infused Q12H WALDEMAR Infusion Ondansetron HCl 4 mg 12/16/20 16:41 Ondansetron Hcl 4 Mg/2 Ml Vial IVPUSH Q8H PRN Nausea and Vomiting Pharmacy Consult 1 each 12/16/20 14:27 Consult Rx Perform Med Rec MISCELLANE ONCE PRN Consult order Sodium Chloride 3 ml 12/17/20 00:00 12/17/20 09:11 0.9 % Sodium Chloride Flush 3 Ml Syringe IVFLUSH 3 ml QSHIFT WALDEMAR Administration Labs CBC & Chem 7: 12/17/20 06:38 12/17/20 06:38 Labs: Laboratory Results - last 24 hr 12/16/20 12/16/20 12/16/20 14:12 14:12 14:12 MCV 93.2 MCH 30.4 MCHC 32.6 RDW 13.4 Plt Count 255 MPV 10.2 Immature Gran % (Auto) 0.3 Neut % (Auto) 56.0 Lymph % (Auto) 32.2 [place] % (Auto) 7.0 Eos % (Auto) 3.7 Baso % (Auto) 0.8 Lymph # (Auto) 2.1 [place] # (Auto) 0.5 Eos # (Auto) 0.2 Baso # (Auto) 0.1 Abs Immat Gran (auto) 0.02 Absolute Neuts (auto) 3.7 Absolute Nucleated RBC 0.000 Nucleated RBC % (auto) 0.0 PT INR APTT Anion Gap 12 Estim Creat Clear Calc 43.4 Estimated GFR > 60 POC Glucose Random Glucose 90 Lactic Acid Calcium 8.6 Magnesium 1.8 Total Bilirubin 0.5 Direct Bilirubin 0.2 AST 35 H ALT 33 H Alkaline Phosphatase 74 Troponin I High Sens 7.5 B-Natriuretic Peptide 1450 H Total Protein 6.4 L Albumin 3.7 Urine Color Urine Appearance Urine pH Ur Specific [place] Urine Protein Urine Glucose (UA) Urine Ketones Urine Blood Urine Nitrite Ur Leukocyte Esterase COVID-19 (PRAVEENA) COVID-19 Clin Com 12/16/20 12/16/20 12/16/20 14:12 14:12 17:07 MCV MCH MCHC RDW Plt Count MPV Immature Gran % (Auto) Neut % (Auto) Lymph % (Auto) [place] % (Auto) Eos % (Auto) Baso % (Auto) Lymph # (Auto) [place] # (Auto) Eos # (Auto) Baso # (Auto) Abs Immat Gran (auto) Absolute Neuts (auto) Absolute Nucleated RBC Nucleated RBC % (auto) PT 11.5 INR 1.0 APTT 32.1 Anion Gap Estim Creat Clear Calc Estimated GFR POC Glucose Random Glucose Lactic Acid 0.9 Calcium Magnesium Total Bilirubin Direct Bilirubin AST ALT Alkaline Phosphatase Troponin I High Sens 9.2 B-Natriuretic Peptide Total Protein Albumin Urine Color Urine Appearance Urine pH Ur Specific [place] Urine Protein Urine Glucose (UA) Urine Ketones Urine Blood Urine Nitrite Ur Leukocyte Esterase COVID-19 (PRAVEENA) COVID-19 Clin Com 12/16/20 12/16/20 12/17/20 20:03 23:35 06:38 MCV MCH MCHC RDW Plt Count MPV Immature Gran % (Auto) Neut % (Auto) Lymph % (Auto) [place] % (Auto) Eos % (Auto) Baso % (Auto) Lymph # (Auto) [place] # (Auto) Eos # (Auto) Baso # (Auto) Abs Immat Gran (auto) Absolute Neuts (auto) Absolute Nucleated RBC Nucleated RBC % (auto) PT INR APTT Anion Gap 15 Estim Creat Clear Calc 43.4 Estimated GFR > 60 POC Glucose Random Glucose 95 Lactic Acid Calcium 8.4 Magnesium Total Bilirubin Direct Bilirubin AST ALT Alkaline Phosphatase Troponin I High Sens B-Natriuretic Peptide Total Protein Albumin Urine Color YELLOW Urine Appearance CLEAR Urine pH 5.5 Ur Specific [place] 1.015 Urine Protein NEG Urine Glucose (UA) NEG Urine Ketones NEG Urine Blood NEG Urine Nitrite NEG Ur Leukocyte Esterase NEG COVID-19 (PRAVEENA) Negative COVID-19 Clin Com See Note 12/17/20 12/17/20 12/17/20 06:38 06:38 07:15 MCV 93.9 MCH 30.7 MCHC 32.7 RDW 13.4 Plt Count 220 MPV 10.5 Immature Gran % (Auto) 0.5 H Neut % (Auto) 48.6 Lymph % (Auto) 34.7 [place] % (Auto) 9.2 Eos % (Auto) 6.1 H Baso % (Auto) 0.9 Lymph # (Auto) 2.0 [place] # (Auto) 0.5 Eos # (Auto) 0.4 Baso # (Auto) 0.1 Abs Immat Gran (auto) 0.03 Absolute Neuts (auto) 2.9 Absolute Nucleated RBC 0.000 Nucleated RBC % (auto) 0.0 PT 12.5 INR 1.1 APTT Anion Gap Estim Creat Clear Calc Estimated GFR POC Glucose 97 Random Glucose Lactic Acid Calcium Magnesium Total Bilirubin Direct Bilirubin AST ALT Alkaline Phosphatase Troponin I High Sens B-Natriuretic Peptide Total Protein Albumin Urine Color Urine Appearance Urine pH Ur Specific [place] Urine Protein Urine Glucose (UA) Urine Ketones Urine Blood Urine Nitrite Ur Leukocyte Esterase COVID-19 (PRAVEENA) COVID-19 Clin Com 12/17/20 08:20 MCV MCH MCHC RDW Plt Count MPV Immature Gran % (Auto) Neut % (Auto) Lymph % (Auto) [place] % (Auto) Eos % (Auto) Baso % (Auto) Lymph # (Auto) [place] # (Auto) Eos # (Auto) Baso # (Auto) Abs Immat Gran (auto) Absolute Neuts (auto) Absolute Nucleated RBC Nucleated RBC % (auto) PT INR APTT Anion Gap Estim Creat Clear Calc Estimated GFR POC Glucose Random Glucose Lactic Acid Calcium Magnesium Total Bilirubin Direct Bilirubin AST ALT Alkaline Phosphatase Troponin I High Sens B-Natriuretic Peptide 1410 H Total Protein Albumin Urine Color Urine Appearance Urine pH Ur Specific [place] Urine Protein Urine Glucose (UA) Urine Ketones Urine Blood Urine Nitrite Ur Leukocyte Esterase COVID-19 (PRAVEENA) COVID-19 Clin Com Quality Stroke Does the patient have a stroke diagnosis?: No VTE Prior VTE?: No VTE Risk Level:: Medical - moderate - high VTE Device Contraindication: N/A - Device Ordered VTE Drug Contraindication: Treatment Not Indicated
[2020-12-17 11:43] LABS: Glucose, Whole Blood 103 mg/dL (60-115)
--- NOTE | 2020-12-17 11:51 | P.CONPL_ITS ---
History of Present Illness History of Present Illness Consult date: 12/17/20 Requesting physician: Hue Vitale Reason for consult: dyspnea and abnormal CXR/CT Chief complaint: CHF Narrative: 80-year-old lady, former 30 pack-year smoker, quit 25 year prior, with underlying history of non-Hodgkin lymphoma in 2014 status post chemotherapy with R-CHOP and XRT to the left lung, followed by [facility] pulmonology Dr. Whitaker admitted on 12/16/2020 with 1 week history of dyspnea that initially started as orthopnea and paroxysmal nocturnal dyspnea. On ER evaluation patient was noted to be dyspnea, but normoxemic. His CT chest was significant for loculated left-sided pleural effusion and partial left lung atrophy presumably secondary to prior XRT. Her COVID test was negative and her BNP was significantly elevated. Patient has been started on empiric antibiotics and diuretic And admitted to the general medical [facility]. Today patient reports significantly dyspnea. She states that she has had a chronic cough productive of whitish sputum that has not changed over the last several months. Review of Systems Constitutional: Constitutional: Denies daytime sleepiness, Denies excessive sweating, Denies fatigue, Denies fever(s), Denies lethargy, Denies malaise, Denies night sweats, Denies snoring and Denies weight loss Eyes: Eyes: Denies blurry vision and Denies itchy eyes ENT: Denies nasal congestion, Denies post nasal drip, Denies sinus pain, Denies sinus pressure and Denies other ( Thrush) Cardiovascular: Cardiovascular: Denies chest pain, Reports pedal edema, Reports dyspnea, Reports orthopnea and Reports paroxysmal nocturnal dyspnea Respiratory: Respiratory: Denies cough, Denies hemoptysis, Denies excessive p hlegm production, Reports dyspnea, Denies snoring and Denies wheezing Gastrointestinal: Gastrointestinal: Denies abdominal pain and Denies heartburn Musculoskeletal: Musculoskeletal: Denies myalgias, Denies arthralgias and Denies joint swelling Integumentary/Breasts: Skin/Breast: Denies rash Neurologic: Denies memory loss and Denies seizure-like activity Psychiatric: Psychiatric: Denies abnormal sleep pattern, Denies anxiety and Denies memory loss Endocrine: Endocrine: Denies excessive sweating, Denies fatigue and Denies heat intolerance Hematologic/Lymphatic: Hematologic/Lymphatic: Denies easy bruising Allergic/Immunologic: Allergic/Immunologic: Denies itchy eyes, Denies seasonal rhinorrhea and Denies wheezing [facility] Past Medical History Medical History (Updated 12/17/20 @ 10:42 by Yimi Guerrero MD) COPD (chronic obstructive pulmonary disease) Heart failure Knee abrasion Non-Hodgkin lymphoma in remission Pneumonia Stroke due to embolism TIA (transient ischemic attack) Surgical History Surgical History (Updated 12/16/20 @ 13:46 by Avi Manrique) Total knee replacement status Social History Social History Housing: House Do you presently have visiting nurse or other home services: No Patient Tobacco Use Status: Former Tobacco user Tobacco use type: Cigarette Smoked in Last 30 Days: No Use of substances other than those prescribed or required for medical reasons: No Currently Displaying Signs/Symptoms of Drug Intoxication Withdrawal: No Have you been hit, kicked, punched, or otherwise hurt by someone within the past year? If so, by whom?: No Do you feel safe in your current relationship?: No Current Relationship Is there a partner from a previous relationship who is making you feel unsafe now?: No Are you made to feel afraid or neglected: No Advance Directives: No Advance Directives Information Provided: No Do you have thoughts of harming others: None Do you have a plan to hurt others: No Plan Recently lost weight without trying: No How much weight loss: Not applicable Eating poorly because of decreased appetite: No Nutrition screen score: 0 Nutrition Risks: No Nutritional Risk Meds Allergies Allergy/AdvReac Type Severity Reaction Status Date / Time codeine Allergy Unknown Verified 12/16/20 14:36 fish derived [fish] Allergy Nausea and Verified 12/16/20 14:36 Vomiting Sulfa (Sulfonamide Allergy Unknown Verified 12/16/20 14:36 Antibiotics) tetanus and diphtheria Allergy Unknown Verified 12/16/20 14:36 toxoids Active Medications: Current Medications Generic Name Dose Route Start Last Admin Trade Name Freq PRN Reason Stop Dose Admin Acetaminophen 650 mg 12/16/20 16:41 Acetaminophen 325 Mg Tablet PO Q6H PRN Pain, Mild (Pain Scale 1-3) Furosemide 20 mg 12/17/20 09:00 12/17/20 09:11 Furosemide 20 Mg/2 Ml Vial IVPUSH 20 mg DAILY WALDEMAR Administration Protocol Doxycycline Hyclate 100 mg/ 250 mls @ 166.67 mls/hr 12/16/20 17:00 12/17/20 09:08 Sodium Chloride IV Infused Q12H WALDEMAR Infusion Ondansetron HCl 4 mg 12/16/20 16:41 Ondansetron Hcl 4 Mg/2 Ml Vial IVPUSH Q8H PRN Nausea and Vomiting Pharmacy Consult 1 each 12/16/20 14:27 Consult Rx Perform Med Rec MISCELLANE ONCE PRN Consult order Sodium Chloride 3 ml 12/17/20 00:00 12/17/20 09:11 0.9 % Sodium Chloride Flush 3 Ml Syringe IVFLUSH 3 ml QSHIFT [facility] Administration Home Medications Medication Instructions Recorded Confirmed Last Taken Type albuterol sulfate 5 mg/mL(0.5 %) 0.5 ml INHALATION BID PRN 12/16/20 12/16/20 12/16/20 History solution for nebulization albuterol sulfate 90 mcg/actuation 2 puff PO QID PRN 12/16/20 12/16/20 12/16/20 History aerosol inhaler aspirin 81 mg tablet,delayed 81 mg PO DAILY 12/16/20 12/16/20 12/15/20 History release bisoprolol fumarate 5 mg tablet 0.5 tab PO DAILY 12/16/20 12/16/20 12/15/20 History famotidine 20 mg tablet (Pepcid) 20 mg PO DAILY PRN 12/16/20 12/16/20 12/16/20 History fluticasone fur. 200 mcg-umeclid 1 puff INHALATION DAILY 12/16/20 12/16/20 12/15/20 History 62.5 mcg-vilant 25 mcg inhalat.powder (Trelegy Ellipta) meloxicam 7.5 mg tablet 1 tab PO DAILY 12/16/20 12/16/20 12/15/20 History multivitamin 1 tab PO DAILY 12/16/20 12/16/20 12/15/20 History polyethylene glycol 3350 17 gram 17 g PO DAILY PRN 12/16/20 12/16/20 Unknown History oral powder packet (Miralax) sodium chloride 7 % for 4 ml INHALATION BID PRN 12/16/20 12/16/20 12/16/20 History nebulization vitamin B complex 1 tab PO DAILY 12/16/20 12/16/2021 History Physical Exam Vital Signs: Vital Signs: Last Vital Signs Temp 97.0 F 12/17/20 08:00 Pulse 69 12/17/20 08:00 Resp 16 12/17/20 08:00 BP 126/71 12/17/20 08:00 Pulse Ox 96 12/17/20 08:00 Oxygen Flow Rate 2 12/16/20 13:39 Body Mass Index 27.8 Const: General: no acute distress, alert and awake Eyes: Sclerae: sclerae normal EOM: EOMs intact bilaterally Neck: Neck: Yes no lymphadenopathy, Yes trachea midline and Yes supple Resp: Effort & Inspection: normal respiratory effort and no respiratory distress Auscultation: clear to auscultation bilaterally Cardio: Rate: regular rate Rhythm: regular rhythm Heart sounds: no gallops, no murmurs and no rubs GI: Palpation (GI): Soft to palpation and Other GI palpation findings present ( Nontender) Auscultation: normal bowel sounds Extrem: General: No clubbing, No cyanosis and Yes pedal edema (Trace bilateral) Results Laboratory Findings CBC and BMP: 12/17/20 06:38 12/17/20 06:38 ABG, PT/INR, D-dimer: PT/INR, D-dimer PT 12.5 SEC (9.9-13.0) 12/17/20 06:38 INR 1.1 (0.9-1.1) 12/17/20 06:38 Abnormal lab findings: Abnormal Labs 12/16/20 12/16/20 12/16/20 14:12 14:12 14:12 RBC 3.36 L Hgb 10.2 L Hct 31.3 L Immature Gran % (Auto) Eos % (Auto) Chloride 111 H Carbon Dioxide 21 L AST 35 H ALT 33 H B-Natriuretic Peptide 1450 H Total Protein 6.4 L 12/17/20 12/17/20 12/17/20 06:38 06:38 08:20 RBC 3.26 L Hgb 10.0 L Hct 30.6 L Immature Gran % (Auto) 0.5 H Eos % (Auto) 6.1 H Chloride 110 H Carbon Dioxide 21 L AST ALT B-Natriuretic Peptide 1410 H Total Protein Assessment and Plan (1) Pleural effusion: Status: Acute Impression: 80-year-old lady with underlying history of non-Hodgkin lymphoma treated in 2014 now with R-CHOP and XRT now admitted with orthopnea, p aroxysmal nocturnal dyspnea, and progressive dyspnea. CT chest significant for what appears to be a loculated left-sided pleural effusion. Patient is improving with the diuretic therapy. Pneumonia is unlikely at this time. Recommendation: Agree with further diuresis. Consider discontinuation of antibiotic therapy. Agree with obtaining 2D echocardiogram, as patient may have had cardiac toxicity from doxorubicin. If patient continues to improve symptomatically with diuretic therapy would defer evaluation of her loculated pleural effusion to an ambulatory follow-up with her laborer car barn, otherwise consider diagnostic thoracentesis. (2) Shortness of breath: Status: Acute Procedures Date of Service Date of Service: 12/17/20
[2020-12-17 11:55] VITALS: BP 96/54; PULSE 67; RESP 17; TEMP 36.8; O2SAT 95
[2020-12-17] MEDS: LORazepam 0.5 MG TABLET 0.25 MG PO (13:07)
--- NOTE | 2020-12-17 15:13 | MHC.CM.PN ---
IMM 12/17/20, EMR REVIEWED, PT ADMITTED W/CHF, CM MET W/PT WHO IS A&OX4, IS INDEPENDENT W/ALL CARE, HAS BARS IN BR AND WALKER FROM KNEE REPLACEMNT SURGERY, PT DOES NOT USE AT THIS TIME, PT HAS NO HOME SERVICES AND [place] NOT ANTICIPATE NEEDING HOME SERVICES AT THIS TIME, PT VERIFIES PCP AND HCP, COPY OF HCP HAS BEEN REQUESTED. D/C PLAN: HOME SELF-CARE W/OUTPT FOLLOW-UP, FAMILY TO TRANSPORT PCP: AUSTIN PAZ HCP: RAMIRO MARR [phone]
[2020-12-17 15:45] VITALS: BP 114/71; PULSE 75; RESP 16; TEMP 36.1; O2SAT 95
[2020-12-17] MEDS: Doxycycline Hyclate 100 MG in 0.9 % Sodium Chloride 250 ML 166.7 MG IV (17:41)
[2020-12-17 19:53] VITALS: BP 142/79; PULSE 70; RESP 16; TEMP 36.2; O2SAT 99
[2020-12-17] MEDS: NaPROXEN 250 MG TABLET PO (20:37)
[2020-12-17 23:20] VITALS: BP 115/57; PULSE 64; RESP 14; TEMP 36.6; O2SAT 97
[2020-12-18 04:00] VITALS: BP 119/63; PULSE 63; RESP 16; TEMP 36.2; O2SAT 98
[2020-12-18] MEDS: Doxycycline Hyclate 100 MG in 0.9 % Sodium Chloride 250 ML 166.7 MG IV (05:10)
[2020-12-18 07:57] VITALS: BP 116/59; PULSE 61; RESP 18; TEMP 36; O2SAT 96
[2020-12-18] MEDS: Bisoprolol Fumarate 5 MG TABLET 2.5 MG PO (08:21)
[2020-12-18] MEDS: Aspirin Enteric Coated 81 MG TABLET.DR PO (08:21)
[2020-12-18] MEDS: 0.9 % Sodium Chloride Flush 3 ML SYRINGE IVFLUSH (08:22)
[2020-12-18] MEDS: Multivitamin TABLET 1 TAB PO (08:22)
[2020-12-18] MEDS: Furosemide 20 MG/2 ML VIAL IVPUSH (08:22)
[2020-12-18] MEDS: NaPROXEN 250 MG TABLET PO (08:22)
[2020-12-18 09:07] LABS: Anion Gap 12 (12-20); Blood Urea Nitrogen 14 mg/dL (9-16); Calcium 8.6 mg/dL (8.4-10.2); Carbon Dioxide 24 mmol/L (22-29); Chloride 108 mmol/L (96-108); Creatinine Clr Calc Pharmacy 39.2; Estimated Glomerular Filt Rate 57; Glucose Random 95 mg/dL (60-115); Potassium 3.8 mmol/L (3.3-5.1); Sodium 140 mmol/L (135-145)
--- NOTE | 2020-12-18 10:04 | HE.PHANOTE ---
Follow-up non-formulary medication Trelegy. Nurse reports that patient forgot to call son yesterday to have medication brought in. She will remind the patient to call her son today. Blessing Barger, JavierD
--- NOTE | 2020-12-18 11:31 | PM.DS ---
DS: Providers Provider Date of Service: 12/18/20 Date of admission: 12/16/20 16:41 Primary care physician: Robert Feliz MD Consults: 12/17/20 07:53 Consult to Cardiology Routine Consulting Provider: Yimi Guerrero Reason for consultation: elevated bnp, sob Has provider been notified: No 12/17/20 09:57 Consult to Pulmonology Routine Consulting Provider: Mac Fontana Reason for consultation: new loculated pleural efussion Has provider been notified: No DS: Diagnosis Discharge Diagnosis (1) Pleural effusion: Status: Acute (2) Shortness of breath: Status: Acute DS: Medications Discharge Medications Home Medications: Home Medications Medication Instructions Recorded Confirmed albuterol sulfate 5 mg/mL(0.5 %) 0.5 ml INHALATION BID PRN 12/16/20 12/16/20 solution for nebulization albuterol sulfate 90 mcg/actuation 2 puff PO QID PRN 12/16/20 12/16/20 aerosol inhaler aspirin 81 mg tablet,delayed 81 mg PO DAILY 12/16/20 12/16/20 release bisoprolol fumarate 5 mg tablet 0.5 tab PO DAILY 12/16/20 12/16/20 famotidine 20 mg tablet (Pepcid) 20 mg PO DAILY PRN 12/16/20 12/16/20 fluticasone fur. 200 mcg-umeclid 1 puff INHALATION DAILY 12/16/20 12/16/20 62.5 mcg-vilant 25 mcg inhalat.powder (Trelegy Ellipta) multivitamin 1 tab PO DAILY 12/16/20 12/16/20 polyethylene glycol 3350 17 gram 17 g PO DAILY PRN 12/16/20 12/16/20 oral powder packet (Miralax) sodium chloride 7 % for 4 ml INHALATION BID PRN 12/16/20 12/16/20 nebulization vitamin B complex 1 tab PO DAILY 12/16/20 12/16/20 Previous Rx's Medication Instructions Recorded clopidogrel 75 mg tablet (Plavix) 75 mg PO DAILY 30 Days #30 tab 12/18/20 furosemide 40 mg tablet (Lasix) 40 mg PO DAILY 30 Days #30 tab 12/18/20 DS: Summary Hospital Course Hospital Course: From H&P on day of admission 80 year old women ? Presenting with increased shortness of breath.? She reports around 230 this morning she felt short of breath.? However she reported last she felt like she had the flu with chills and achiness.? She had called her leather staker today and explained her symptoms and was told to come to the ER for further evaluation.? She denied recent illness, fever, chills, exposure to COVID.? She does have a history of lymphoma and underwent chemotherapy and radiation 2013, since then she has had no further treatment and has been doing well. BNP was noted to be elevated at 1450 however she did not appear to be in overt heart failure.? Chest x-ray showed moderate left lower lobe opacity likely pleural effusion with underlying consolidation versus atelectasis with increased right lung vasculature questioning edema versus pneumonitis.? Chest CT is pending.? All of her other labs within acceptable limits.? Vital signs are stable.? Blood pressure is mildly elevated with patient reports feeling quite anxious.? She was started on ceftriaxone and azithromycin in the ER and also given a dose of IV Lasix.? She will be admitted for further management and treatment of pleural effusion. Acute On chronic heart failure with reduced ejection fraction. Patient was started on diuresis with IV Lasix. She had echocardiogram which showed ejection fraction of 40-45% which is similar to previous. Echocardiogram did show wall motion abnormality. Patient states that she has been told the past that she had an NE. per cardiology no further workup necessary. Her breathing has improved with diuresis and she is eager to return home. She will be discharged home with oral Lasix. Cardiology also did recommend adding Plavix to her aspirin for 21 days and then potentially stopping aspirin and continuing Plavix monotherapy given that she recently had a stroke involving her left eye while taking aspirin. She should call to schedule follow-up appointment with her primary tractor mechanic apprentice. She was evaluated by pulmonology who felt that the patient did not require a thoracentesis if her symptoms improved with diuresis which they did. He recommended no antibiotics and outpatient follow-up with the patient's leather staker. The patient is currently saturating well on room air and stable for discharge home. Time Spent with Patient Time attestation: Total time spent providing and/or coordinating discharge services: Discharge coordination time: Greater than 30 minutes Quality: Stroke Does the patient have a stroke diagnosis?: No Physical Exam Vital Signs: Vital Signs: Last Vital Signs Temp 96.8 F 12/18/20 07:57 Pulse 61 12/18/20 07:57 Resp 18 12/18/20 07:57 BP 116/59 L 12/18/20 07:57 Pulse Ox 96 12/18/20 07:57 Oxygen Flow Rate 2 12/16/20 13:39 Body Mass Index 27.8 DS: Data Data Completed and Pending Labs on day of discharge: Laboratory Results - last 24 hr 12/17/20 12/18/20 11:10 08:13 Sodium 140 Potassium 3.8 Chloride 108 Carbon Dioxide 24 Anion Gap 12 BUN 14 Creatinine 0.95 Estim Creat Clear Calc 39.2 Estimated GFR 57 POC Glucose 103 Random Glucose 95 Calcium 8.6 Preliminary micro results at discharge 12/16/20 14:11 Blood Culture - Preliminary Blood - Venous No growth after 24 hours. 12/16/20 14:11 Blood Culture - Preliminary Blood - Venous No growth after 24 hours. Discharge Plan Discharge Patient Disposition: Home, Self-Care Discharge Diagnosis: Pleural effusion Heart failure Referrals: Robert Feliz MD [Primary Care Provider] - 1 Week Discharge Medications: New furosemide [Lasix] 40 mg tablet 40 mg PO DAILY 30 Days Qty: 30 RF: 0 clopidogrel [Plavix] 75 mg tablet 75 mg PO DAILY 30 Days Qty: 30 RF: 0 Continued bisoprolol fumarate 5 mg tablet 0.5 tab PO DAILY RF: 0 albuterol sulfate 90 mcg/actuation HFA aerosol inhaler 2 puff PO QID PRN (Reason: wheezing) RF: 0 albuterol sulfate 5 mg/mL solution for nebulization 0.5 ml inhalation BID PRN (Reason: wheezing) RF: 0 sodium chloride 7 % solution for nebulization 4 ml inhalation BID PRN (Reason: Wheezing) RF: 0 Trelegy Ellipta 200-62.5-25 mcg blister with device 1 puff inhalation DAILY RF: 0 multivitamin Tablet 1 tab PO DAILY RF: 0 polyethylene glycol 3350 [Miralax] 17 gram Powder In Packet 17 g PO DAILY PRN (Reason: Constipation) RF: 0 aspirin 81 mg Tablet,Delayed Release (Dr/Ec) 81 mg PO DAILY RF: 0 famotidine [Pepcid] 20 mg Tablet 20 mg PO DAILY PRN (Reason: Gastric Reflux) RF: 0 vitamin B complex Tablet 1 tab PO DAILY RF: 0 Discontinued meloxicam 7.5 mg tablet 1 tab PO DAILY RF: 0 Discharge Orders: Discharge Order (Routine); Ordered 12/18/20 Ordered By: Luz Funk Activity on Discharge: As tolerated Stand Alone Forms: Patient Portal Discharge page Other Ambulatory Orders: Basic Metabolic Panel (Routine) Timeframe: 1 Week Facility: [facility] - Location: Laboratory Ordered By: Luz Funk Care Plan Goals: See below Health Concerns: Heart failure Pleural effusion Plan of Treatment: Take Plavix for 21 days in addition to your Aspirin, then stop Aspirin. You have been on a new medication called Lasix, this is a diuretic. Please take as prescribed. Repeat labs in one week. Call to schedule follow-up with your tractor mechanic apprentice Dr. Diaz. Call to schedule follow-up appointment with your leather staker Assessment: See discharge summary
--- NOTE | 2020-12-18 12:13 | MHC.CM.PN ---
PT DISCHARGING HOME SELF-CARE W/INSTRUCTIONS TO FOLLOW-UP W/PT'S PULMONO;[facility] AND [facility] [place] FOR CITY CLERK, FAMILY FOR TRANSPORT
== END 2020-12-18 12:14 | disposition home or self-care (01) | DRG 292 ==
LOC: HO.ED 15:59 → HO.EDOVER 17:05 → HO.S3 12-17 00:34
PROVIDERS: Nurse Practitioner Family; Admitting Provider Nurse Practitioner Acute Care; Emergency Provider Emergency Medicine; PCP Family Medicine; Visit Provider Family Medicine
DX: I50.23 Acute on chronic systolic (congestive) heart failure (principal); C85.90 Non-Hodgkin lymphoma, unspecified, unspecified site; J44.9 Chronic obstructive pulmonary disease, unspecified; Z20.822 Contact with and (suspected) exposure to COVID-19; Z87.891 Personal history of nicotine dependence; Z88.2 Allergy status to sulfonamides; Z88.5 Allergy status to narcotic agent; Z79.02 Long term (current) use of antithrombotics/antiplatelets; Z79.899 Other long term (current) drug therapy
CPT/HCPCS: 36415; 71046; 71250; 80048; 80076; 81003; 82947; 83605; 83735; 83880; 84484; 85025; 85610; 85730; 87040; 87635; 93005; 93306; 99285; J0456; J0696; J1940

== ENCOUNTER 2021-05-29 08:54 | Outpatient (REF) | payer MEDICARE, SELFPAY ==
--- NOTE | ~2021-05-29 | MM_ITS ---
EXAMINATION: MM SCREENING DIGITAL BREAST TOMOSYNTHESIS, BILATERAL CLINICAL INFORMATION: Screening. Asymptomatic. The lifetime risk of breast cancer based on the Tyrer-Cuzick Model is 1.5%. COMPARISON: Mammography: April 2020 and studies dating back to February 28, 2014 TECHNIQUE: Digital breast tomosynthesis is performed in both the craniocaudal and mediolateral oblique views along with computer-aided detection (CAD). Synthesized 2D images are generated from the tomosynthesis. FINDINGS: There are scattered areas of fibroglandular density (ACR BI-RADS breast composition Category b). There are no significant masses, abnormal calcifications, or other abnormalities. MM/MM tomosynthesis screening BI IMPRESSION: There are no significant changes from prior study. ASSESSMENT: BI-RADS 1: Negative RECOMMENDATION: Routine annual mammography screening. This patient's information was entered into a reminder system with a target due date for their next mammogram.
== END 2021-05-29 08:55 | disposition home or self-care (01) ==
LOC: HO.MAMMO 08:54
PROVIDERS: PCP Family Medicine; Visit Provider Family Medicine
DX: Z12.31 Encounter for screening mammogram for malignant neoplasm of breast (principal)
CPT/HCPCS: 77063; 77067

== ENCOUNTER 2021-11-25 08:36 | Outpatient (REF) | payer MEDICARE, SELFPAY ==
--- NOTE | ~2021-11-25 | MM_ITS ---
EXAMINATION: BONE DENSITOMETRY CLINICAL INDICATION: Osteoporosis. COMPARISON: Baseline BD dated 03/24/2007. TECHNIQUE: Using a [employer] DXA System (software version: 13.1) manufactured by [employer], dual-energy x-ray absorptiometry was performed of the lumbar spine and left hip. The images are of good technical quality. Summary results are attached. FINDINGS: AP SPINE L1-L4: Current: BMD 0.863 g/cm2, Z-score -0.7, T-score -2.6, osteoporosis, 11.2% decrease from baseline (<5% change is not significant). Baseline: BMD 0.972 g/cm2. LEFT FEMUR, NECK: Current: BMD 0.697 g/cm2, Z-score -0.2, T-score -2.5, osteoporosis. Baseline: BMD 0.794 g/cm2. LEFT FEMUR, TOTAL: Current: BMD 0.775 g/cm2, Z-score 0.2, T-score -1.8, osteopenia, 11.6% decrease from baseline (<5% change is not significant). Baseline: BMD 0.877 g/cm2. IDENTIFIED RISK FACTORS: Early menopause, secondary osteoporosis, height loss, osteoporosis. HISTORY OF FRACTURE: None listed. MEDICATIONS: None listed. MM/XR DEXA axial skeleton IMPRESSION: 1. DIAGNOSIS: Osteoporosis based on the lowest T-score value of -2.6 in the lumbar spine applying World Health Organization criteria. 2. 10-YEAR FRACTURE RISK PREDICTION, FRAX: According to the guidelines, FRAX calculation should only be performed on patients in the osteopenia bone density category. Therefore, FRAX was not performed on this patient. 3. Treatment Recommendations: NOF guidelines recommend consideration for treatment in postmenopausal women and men age 50 and older presenting with the following: -A hip or vertebral (clinical or morphometric) fracture. -T-score less than or equal to -2.5 at the femoral neck or spine after appropriate evaluation to exclude secondary causes. -Low bone mass at the hip or spine and a 10-year fracture probability by FRAX of greater than or equal to 3% for hip fracture or greater than or equal to 20% for major osteoporotic fracture based on the [place] adapted WHO algorithm. 4. Other Recommendations: All treatment decisions require clinical judgment and consideration of individual patient factors, including patient preferences, comorbidities, previous drug use, risk factors not captured in the FRAX model (e.g. frailty, falls, vitamin D deficiency, increased bone turnover, interval significant decline in bone density) and possible under or overestimation of fracture risk by FRAX. Additional medical evaluation for secondary cause of low bone mineral density may be appropriate. FUTURE SCAN RECOMMENDATION: People with diagnosed cases of osteoporosis or at high risk for fracture should have regular bone mineral density tests. For patients eligible for Medicare, routine testing is allowed once every 2 years. The testing frequency can be increased to one year for patients who have rapidly progressing disease, those who are receiving or discontinuing medical therapy to restore bone mass, or have additional risk factors.
== END 2021-11-25 08:37 | disposition home or self-care (01) ==
LOC: HO.MAMMO 08:36
PROVIDERS: PCP Family Medicine; Visit Provider Family Medicine
DX: Z13.820 Encounter for screening for osteoporosis (principal); M81.0 Age-related osteoporosis without current pathological fracture; Z78.0 Asymptomatic menopausal state
CPT/HCPCS: 77080

== ENCOUNTER 2022-05-09 15:08 | Emergency (ER) | payer MEDICARE, SELFPAY ==
--- NOTE | ~2022-05-09 | XR_ITS ---
EXAMINATION: XR CHEST CLINICAL INFORMATION: Shortness of breath COMPARISON: Chest x-ray 12/16/2020 TECHNIQUE: Frontal view of the chest was obtained. FINDINGS: Volume loss in the left hemithorax with leftward mediastinal and tracheal shift. Blunted left costophrenic angle consistent with a small to moderate-sized left pleural fluid collection, similar to prior. Airspace opacity in the medial left mid to lower lung, presumably atelectasis, also similar to prior. The right lung is mildly hyperinflated, but clear. No right pleural effusion. No pneumothorax visualized. Cardiomediastinal silhouette is unchanged. No evidence of pulmonary edema. No acute osseous injury. XR/XR chest 1V IMPRESSION: 1. Volume loss in the left hemithorax with small to moderate-sized left pleural fluid collection and left mid to lower lung opacity most likely atelectasis. 2. No new airspace consolidation.
[2022-05-09 15:16] VITALS: BP 130/70; PULSE 95; O2SAT 100
[2022-05-09 15:18] VITALS: BP 139/69; PULSE 85; RESP 20; TEMP 36.6; O2SAT 99; BMI 27.2
--- NOTE | 2022-05-09 15:36 | PC.NURSE ---
pt arrives to the ED reporting SOB. Pt satting 98-100% on room air. Pt reports that she has also been getting dizzy recently unsure of whether the two started occurring at the same time. VSS, awaiting ED physician at this time
--- NOTE | 2022-05-09 16:01 | ECG_ITS ---
Test Reason : dizziness, SOB Blood Pressure : / mmHG Vent. 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
--- NOTE | 2022-05-09 16:05 | ED.GENADULT ---
HPI - General Adult General Chief complaint: Dyspnea Stated complaint: DIFF BREATHING 100% RA,DIZZY PER EMS Time Seen by Provider: 05/09/22 15:49 Source: patient Mode of arrival: EMS Limitations: no limitations History of Present Illness HPI narrative: Patient comes in the emergency room complaining of a near syncopal episode. Patient states that she has been having dizziness for several months. Patient states that she has constantly the feeling that she is on a boat rocking back and forth. Today, patient states that she thought she was going to pass out but she did not. Patient did not fall or sustain any injuries. Patient states that she has chronic shortness of breath but seems to be worse lately, worsened by exertion. Patient states that this time she has a mild headache, no chest pain or shortness of breath while she is laying down. Related Data Home Medications Medication Instructions Recorded Confirmed albuterol sulfate 5 mg/mL(0.5 %) 0.5 ml inhalation BID PRN wheezing 12/16/20 12/16/20 solution for nebulization albuterol sulfate 90 mcg/actuation 2 puff PO QID PRN wheezing 12/16/20 12/16/20 aerosol inhaler aspirin 81 mg tablet,delayed 81 mg PO DAILY 12/16/20 12/16/20 release bisoprolol fumarate 5 mg tablet 0.5 tab PO DAILY 12/16/20 12/16/20 famotidine 20 mg tablet (Pepcid) 20 mg PO DAILY PRN Gastric Reflux 12/16/20 12/16/20 fluticasone fur. 200 mcg-umeclid 1 puff inhalation DAILY 12/16/20 12/16/20 62.5 mcg-vilant 25 mcg inhalat.powder (Trelegy Ellipta) multivitamin 1 tab PO DAILY 12/16/20 12/16/20 polyethylene glycol 3350 17 gram 17 g PO DAILY PRN Constipation 12/16/20 12/16/20 oral powder packet (Miralax) sodium chloride 7 % for 4 ml inhalation BID PRN Wheezing 12/16/20 12/16/20 nebulization vitamin B complex 1 tab PO DAILY 12/16/20 12/16/20 Previous Rx's Medication Instructions Recorded clopidogrel 75 mg tablet (Plavix) 75 mg PO DAILY 30 days #30 tabs 12/18/20 furosemide 40 mg tablet (Lasix) 40 mg PO DAILY 30 days #30 tabs 12/18/20 diazepam 2 mg tablet 1 mg PO BID PRN anxiety #5 tabs 05/09/22 meclizine 25 mg tablet 25 mg PO TID PRN dizziness #20 tabs 05/09/22 Allergies Allergy/AdvReac Type Severity Reaction Status Date / Time codeine Allergy Unknown Verified 12/16/20 14:36 fish derived [fish] Allergy Nausea and Verified 12/16/20 14:36 Vomiting Sulfa (Sulfonamide Allergy Unknown Verified 12/16/20 14:36 Antibiotics) tetanus and diphtheria Allergy Unknown Verified 12/16/20 14:36 toxoids Review of Systems Review of Systems: Constitutional : No Weight loss, No Fever, No Chills, No Night Sweats, No Fatigue, No Malaise ENT/Mouth : No Hearing loss, No Ear Pain, No Nasal Congestion, No Sinus Pain, No Hoarseness, No sore throat, No Rhinorrhea, No Swallowing Difficulty Eyes: No Eye Pain, No Swelling, No Redness, No Foreign Body, No Discharge, No Vision Changes Cardiovascular : Complaining of mild chest pressure. Dyspnea on exertion, chronic orthopnea Respiratory : Chronic Cough, No Sputum, No Wheezing, No Smoke Exposure, dyspnea worse with exertion Gastrointestinal : No Nausea, No Vomiting, No Diarrhea, No Constipation, No abdominal Pain, No Hematochezia, No Melena Genitourinary : no irregular bleeding, No Dysuria, No Urinary Frequency, No Hematuria, No Urinary Incontinence, No Urgency, No Flank Pain, No Urinary Flow Changes, No Hesitancy Musculoskeletal : No joint pain, No Myalgias, No Joint Swelling Skin : No Skin Lesions, No rash Neuro : No Weakness, No Numbness, No Paresthesias, No Loss of Consciousness, complaining of dizziness, complaining of mild Headache Psych : No Anxiety/Panic, No Depression, No SI/HI/AH/VH, No Social Issues, Heme/Lymph: No Bruising, No Bleeding,No Lymphadenopathy Endocrine : No Polyuria, No Polydipsia, No Temperature Intolerance PMFSH Past Medical History Medical History COPD (chronic obstructive pulmonary disease) CVA (cerebral vascular accident) Heart failure Knee abrasion Non-Hodgkin lymphoma in remission Pneumonia Stroke due to embolism TIA (transient ischemic attack) Surgical History Total knee replacement status Social History Social History Housing: House Do you presently have visiting nurse or other home services: No Patient Tobacco Use Status: Former Tobacco user Tobacco use type: Cigarette Advance Directives: Yes Advance Directives Information Provided: No Advance Directives on File: No service: No Current occupational status: retired Physical Exam ED Vital Signs: Vital Signs - 24 hr 05/09/22 15:18 05/09/22 16:26 05/09/22 17:44 Temperature 97.9 F 98.1 F Pulse Rate 85 77 67 Respiratory Rate 20 19 Blood Pressure 139/69 123/66 114/59 L Pulse Oximetry 99 98 Oxygen Delivery Method Room Air Room Air 05/09/22 17:45 05/09/22 17:45 05/09/22 17:48 Temperature 98.2 F Pulse Rate 73 86 75 Respiratory Rate 25 H Blood Pressure 116/97 H 120/71 116/71 Pulse Oximetry 98 Oxygen Delivery Method Room Air BMI result Body Mass Index 27.2 Const Other: Appearance: Alert. Oriented X3. No acute distress. Eyes: Pupils equal, round and reactive to light. ENT: Pharynx normal. Neck: Normal inspection. Neck supple. No lymph nodes noted. No crepitus CVS: Normal heart rate and rhythm. Pulses normal. Normal S1 and S2 Respiratory: No respiratory distress. Breath sounds normal. No Wheezing. No rales Abdomen: Soft and nontender. No rigidity. No distention. Skin: Skin warm and dry. Normal skin color. Normal skin turgor. Extremities: No lower extremity edema. No Lacerations. No Rash Neuro: Oriented X 3. No motor deficit. No sensory deficit. Moving all extremities. No slurred speech. CN 2 through 12 grossly intact Psych: calm, cooperative, normal affect Course Course Course Narrative: Patient's labs and chest x-rays pending. -patient given p.o. acetaminophen, 1 mg Valium and 50 mg meclizine Medications Administered Discontinued Medications Generic Name Dose Route Start Last Admin Trade Name Freq PRN Reason Stop Dose Admin Acetaminophen 975 mg 05/09/22 16:07 05/09/22 16:20 Acetaminophen 325 Mg Tablet PO 05/09/22 16:08 975 mg ONCE ONE Administration Diazepam 1 mg 05/09/22 16:03 05/09/22 16:21 Diazepam 2 Mg Tablet PO 05/09/22 16:04 1 mg ONCE ONE Administration Meclizine HCl 50 mg 05/09/22 16:03 05/09/22 16:20 Meclizine Hcl 25 Mg Tablet PO 05/09/22 16:04 50 mg ONCE ONE Administration Medical Decision Making Medical Decision Making [facility] Narrative: -patient tested positive for influenza B. Patient has been symptomatic for approximately 4 days. Discussed with the patient starting Tamiflu versus treating symptomatically, discussed with the patient that the Tamiflu may not be of any benefit to her given the when a friend. Patient decided to only treat symptomatically. -negative orthostatic vitals -also, patient received 1 dose of p.o. meclizine and diazepam. Patient states that she feels much better, no longer feeling dizzy. Patient states this is the 1st time in months that she can walk without feeling significantly dizzy. -patient feels comfortable going home. Differential Diagnosis Differential Diagnoses: The differential diagnosis associated with the presentation includes (BPPV, orthostatic hypotension viral syndrome) Lab Data [facility] Lab Attestation statement: I reviewed the patient's lab results. 05/09/22 16:59 05/09/22 16:59 Labs: Lab Results 05/09/22 05/09/22 05/09/22 Range/Units 16:59 16:59 16:59 WBC 6.0 (4.8-10.8) X10*3/uL RBC 3.81 L (4.20-5.50) X10*6/uL Hgb 11.4 L (12.0-16.0) g/dl Hct 34.8 L (37.0-47.0) % MCV 91.3 (80.0-98.0) fL MCH 29.9 (27.0-33.0) pg MCHC 32.8 (31.0-35.0) g/dl RDW 13.3 (11.0-16.0) % Plt Count 326 (160-400) X10*3/uL MPV 9.6 (9.4-12.3) fL Immature Gran % (Auto) 0.3 (0.0-0.4) % Neut % (Auto) 60.8 (45-73) % Lymph % (Auto) 26.6 (20-40) % [place] % (Auto) 9.5 (2-11) % Eos % (Auto) 2.0 (0-4) % Baso % (Auto) 0.8 (0-2) % Lymph # (Auto) 1.6 (1.2-4.9) X10*3/uL [place] # (Auto) 0.6 (0.1-1.2) X10*3/uL Eos # (Auto) 0.1 (0.0-0.4) X10*3/uL Baso # (Auto) 0.1 (0.0-0.2) X10*3/uL Abs Immat Gran (auto) 0.02 (0.00-0.03) X10*3/uL Absolute Neuts (auto) 3.7 (2.0-8.3) x10*3/uL Absolute Nucleated RBC 0.000 (0.0-0.012) X10*3/uL Nucleated RBC % (auto) 0.0 (0.0-0.2) /100WBC PT 10.6 (10.0-13.1) SEC INR 0.9 (0.9-1.1) VBG pH (7.32-7.43) VBG pCO2 mmHg VBG pO2 mmHg VBG HCO3 (22-26) mmol/L VBG O2 Saturation % VBG Base Excess mmol/L Sodium 139 (135-145) mmol/L Potassium 3.8 (3.3-5.1) mmol/L Chloride 104 (96-108) mmol/L Carbon Dioxide 22 (22-29) mmol/L Anion Gap 17 (12-20) BUN 28 H (9-16) mg/dL Creatinine 1.08 (0.5-1.4) mg/dL Estim Creat Clear Calc 33.6 Estimated GFR 49 Random Glucose 126 H (60-115) mg/dL Lactic Acid (0.5-2.0) mmol/L Calcium 9.3 D (8.4-10.2) mg/dL Total Bilirubin 0.3 (0.0-1.0) mg/dL Direct Bilirubin < 0.2 (0.0-0.5) mg/dL AST 25 (5-31) U/L ALT 21 (0-31) U/L Alkaline Phosphatase 80 (39-117) U/L Troponin I High Sens (<3.5-17.0) ng/L B-Natriuretic Peptide (<100) pg/mL Total Protein 7.1 (6.5-8.0) g/dL Albumin 4.1 (3.5-5.0) g/dL COVID-19 (PRAVEENA) (Negative) COVID-19 Clin Com Influenza Type A (ANNA) (Negative) Influenza Type B (ANNA) (Negative) Influenza A & B Note 05/09/22 05/09/22 05/09/22 Range/Units 16:59 17:04 17:11 WBC (4.8-10.8) X10*3/uL RBC (4.20-5.50) X10*6/uL Hgb (12.0-16.0) g/dl Hct (37.0-47.0) % MCV (80.0-98.0) fL MCH (27.0-33.0) pg MCHC (31.0-35.0) g/dl RDW (11.0-16.0) % Plt Count (160-400) X10*3/uL MPV (9.4-12.3) fL Immature Gran % (Auto) (0.0-0.4) % Neut % (Auto) (45-73) % Lymph % (Auto) (20-40) % [place] % (Auto) (2-11) % Eos % (Auto) (0-4) % Baso % (Auto) (0-2) % Lymph # (Auto) (1.2-4.9) X10*3/uL [place] # (Auto) (0.1-1.2) X10*3/uL Eos # (Auto) (0.0-0.4) X10*3/uL Baso # (Auto) (0.0-0.2) X10*3/uL Abs Immat Gran (auto) (0.00-0.03) X10*3/uL Absolute Neuts (auto) (2.0-8.3) x10*3/uL Absolute Nucleated RBC (0.0-0.012) X10*3/uL Nucleated RBC % (auto) (0.0-0.2) /100WBC PT (10.0-13.1) SEC INR (0.9-1.1) VBG pH 7.44 H (7.32-7.43) VBG pCO2 37 mmHg VBG pO2 60 mmHg VBG HCO3 25 (22-26) mmol/L VBG O2 Saturation 89.0 % VBG Base Excess 2.0 mmol/L Sodium (135-145) mmol/L Potassium (3.3-5.1) mmol/L Chloride (96-108) mmol/L Carbon Dioxide (22-29) mmol/L Anion Gap (12-20) BUN (9-16) mg/dL Creatinine (0.5-1.4) mg/dL Estim Creat Clear Calc Estimated GFR Random Glucose (60-115) mg/dL Lactic Acid (0.5-2.0) mmol/L Calcium (8.4-10.2) mg/dL Total Bilirubin (0.0-1.0) mg/dL Direct Bilirubin (0.0-0.5) mg/dL AST (5-31) U/L ALT (0-31) U/L Alkaline Phosphatase (39-117) U/L Troponin I High Sens 11.8 (<3.5-17.0) ng/L B-Natriuretic Peptide (<100) pg/mL Total Protein (6.5-8.0) g/dL Albumin (3.5-5.0) g/dL COVID-19 (PRAVEENA) Negative (Negative) COVID-19 Clin Com See Note Influenza Type A (ANNA) (Negative) Influenza Type B (ANNA) (Negative) Influenza A & B Note 05/09/22 05/09/22 05/09/22 Range/Units 17:11 17:25 17:26 WBC (4.8-10.8) X10*3/uL RBC (4.20-5.50) X10*6/uL Hgb (12.0-16.0) g/dl Hct (37.0-47.0) % MCV (80.0-98.0) fL MCH (27.0-33.0) pg MCHC (31.0-35.0) g/dl RDW (11.0-16.0) % Plt Count (160-400) X10*3/uL MPV (9.4-12.3) fL Immature Gran % (Auto) (0.0-0.4) % Neut % (Auto) (45-73) % Lymph % (Auto) (20-40) % [place] % (Auto) (2-11) % Eos % (Auto) (0-4) % Baso % (Auto) (0-2) % Lymph # (Auto) (1.2-4.9) X10*3/uL [place] # (Auto) (0.1-1.2) X10*3/uL Eos # (Auto) (0.0-0.4) X10*3/uL Baso # (Auto) (0.0-0.2) X10*3/uL Abs Immat Gran (auto) (0.00-0.03) X10*3/uL Absolute Neuts (auto) (2.0-8.3) x10*3/uL Absolute Nucleated RBC (0.0-0.012) X10*3/uL Nucleated RBC % (auto) (0.0-0.2) /100WBC PT (10.0-13.1) SEC INR (0.9-1.1) VBG pH (7.32-7.43) VBG pCO2 mmHg VBG pO2 mmHg VBG HCO3 (22-26) mmol/L VBG O2 Saturation % VBG Base Excess mmol/L Sodium (135-145) mmol/L Potassium (3.3-5.1) mmol/L Chloride (96-108) mmol/L Carbon Dioxide (22-29) mmol/L Anion Gap (12-20) BUN (9-16) mg/dL Creatinine (0.5-1.4) mg/dL Estim Creat Clear Calc Estimated GFR Random Glucose (60-115) mg/dL Lactic Acid 1.1 (0.5-2.0) mmol/L Calcium (8.4-10.2) mg/dL Total Bilirubin (0.0-1.0) mg/dL Direct Bilirubin (0.0-0.5) mg/dL AST (5-31) U/L ALT (0-31) U/L Alkaline Phosphatase (39-117) U/L Troponin I High Sens (<3.5-17.0) ng/L B-Natriuretic Peptide 216 H (<100) pg/mL Total Protein (6.5-8.0) g/dL Albumin (3.5-5.0) g/dL COVID-19 (PRAVEENA) (Negative) COVID-19 Clin Com Influenza Type A (ANNA) Negative (Negative) Influenza Type B (ANNA) Positive A (Negative) Influenza A & B Note See Note Independent Interpretation I performed an independent interpretation of an: EKG (My EKG interpretation: Normal sinus rhythm, heart rate 68, no ST segment depression or elevation, no T-wave inversion, QTC 435) and Plain X-Ray (Left pleural effusion. However, it has been present since 2020 when comparing it to previous chest x-rays) Radiology Impression Discussion of test interpretation with radiology: I have reviewed the radiologist's reading. Radiologist Impression: FINDINGS: Volume loss in the left hemithorax with leftward mediastinal and tracheal shift. Blunted left costophrenic angle consistent with a small to moderate-sized left pleural fluid collection, similar to prior. Airspace opacity in the medial left mid to lower lung, presumably atelectasis, also similar to prior. The right lung is mildly hyperinflated, but clear. No right pleural effusion. No pneumothorax visualized. Cardiomediastinal silhouette is unchanged. No evidence of pulmonary edema. No acute osseous injury. XR/XR chest 1V IMPRESSION: 1.? Volume loss in the left hemithorax with small to moderate-sized left pleural fluid collection and left mid to lower lung opacity most likely atelectasis. 2.? No new airspace consolidation. Discharge Plan Discharge Clinical Impression: Influenza B, Vertigo Patient Disposition: Home, Self-Care Instructions: Vertigo (ED), Influenza (ED) Additional Instructions: Please follow-up with your primary care physician tomorrow. If you have any worsening or new symptoms, please return to the emergency room or call 911 Prescriptions: New meclizine 25 mg tablet 25 mg PO TID PRN (Reason: dizziness) Qty: 20 0RF diazepam 2 mg tablet 1 mg PO BID PRN (Reason: anxiety) Qty: 5 0RF Rx Instructions: Only use in case of severe dizziness together with the meclizine No Action bisoprolol fumarate 5 mg tablet 0.5 tab PO DAILY albuterol sulfate 90 mcg/actuation HFA aerosol inhaler 2 puff PO QID PRN (Reason: wheezing) albuterol sulfate 5 mg/mL solution for nebulization 0.5 ml inhalation BID PRN (Reason: wheezing) Rx Instructions: mix with 4ml hyper joselito sodium chloride 7 % solution for nebulization 4 ml inhalation BID PRN (Reason: Wheezing) Rx Instructions: mixed with albuterol Trelegy Ellipta 200-62.5-25 mcg blister with device 1 puff inhalation DAILY Rx Instructions: was taking spiriva multivitamin Tablet 1 tab PO DAILY polyethylene glycol 3350 [Miralax] 17 gram Powder In Packet 17 g PO DAILY PRN (Reason: Constipation) aspirin 81 mg Tablet,Delayed Release (Dr/Ec) 81 mg PO DAILY famotidine [Pepcid] 20 mg Tablet 20 mg PO DAILY PRN (Reason: Gastric Reflux) vitamin B complex Tablet 1 tab PO DAILY furosemide [Lasix] 40 mg tablet 40 mg PO DAILY 30 Days Qty: 30 0RF clopidogrel [Plavix] 75 mg tablet 75 mg PO DAILY 30 Days Qty: 30 0RF
[2022-05-09] MEDS: Acetaminophen 325 MG TABLET 975 MG PO (16:20)
[2022-05-09] MEDS: Meclizine HCl 25 MG TABLET 50 MG PO (16:20)
[2022-05-09] MEDS: diazePAM 2 MG TABLET 1 MG PO (16:21)
[2022-05-09 16:26] VITALS: BP 123/66; PULSE 77; RESP 19; TEMP 36.7; O2SAT 98
[2022-05-09 17:05] LABS: MANUAL DIFF FLAG NO
[2022-05-09 17:11] LABS: Basophils Absolute Auto 0.1 X10*3/uL (0.0-0.2); Basophils Percent Auto 0.8 % (0-2); Eosinophils Absolute Auto 0.1 X10*3/uL (0.0-0.4); Hematocrit 34.8 % (37.0-47.0); Hemoglobin 11.4 g/dl (12.0-16.0); Imm Gran Abs Auto 0.02 X10*3/uL (0.00-0.03); Imm Gran Pct Auto 0.3 % (0.0-0.4); Lymphocytes Absolute Auto 1.6 X10*3/uL (1.2-4.9); Lymphocytes Percent Auto 26.6 % (20-40); Mean Corpuscular HGB Conc 32.8 g/dl (31.0-35.0); Mean Corpuscular Hemoglobin 29.9 pg (27.0-33.0); Mean Corpuscular Volume 91.3 fL (80.0-98.0); Mean Platelet Volume 9.6 fL (9.4-12.3); Monocytes Absolute Auto 0.6 X10*3/uL (0.1-1.2); Monocytes Percent Auto 9.5 % (2-11); Neutrophils Absolute Auto 3.7 x10*3/uL (2.0-8.3); Neutrophils Percent Auto 60.8 % (45-73); Platelet Count 326 X10*3/uL (160-400); Red Blood Count 3.81 X10*6/uL (4.20-5.50); Red Cell Distribution Width 13.3 % (11.0-16.0)
[2022-05-09 17:13] LABS: VBG HCO3 25 mmol/L (22-26); VBG pCO2 37 mmHg; VBG pH 7.44 (7.32-7.43); VBG pO2 60 mmHg
[2022-05-09 17:19] LABS: INTERNATIONAL NORM RATIO 0.9 (0.9-1.1); Prothrombin Time 10.6 SEC (10.0-13.1)
[2022-05-09 17:24] LABS: Alanine Aminotransferase 21 U/L (0-31); Albumin Level 4.1 g/dL (3.5-5.0); Alkaline Phosphatase 80 U/L (39-117); Anion Gap 17 (12-20); Aspartate Amino Transferase 25 U/L (5-31); Bilirubin Direct < 0.2 mg/dL (0.0-0.5); Bilirubin Total 0.3 mg/dL (0.0-1.0); Blood Urea Nitrogen 28 mg/dL (9-16); Calcium 9.3 mg/dL (8.4-10.2); Carbon Dioxide 22 mmol/L (22-29); Chloride 104 mmol/L (96-108); Creatinine Clr Calc Pharmacy 33.6; Estimated Glomerular Filt Rate 49; Glucose Random 126 mg/dL (60-115); Potassium 3.8 mmol/L (3.3-5.1); Sodium 139 mmol/L (135-145); Total Protein 7.1 g/dL (6.5-8.0)
[2022-05-09 17:25] LABS: Venous Blood Gas Refer to POC result
[2022-05-09 17:30] LABS: Troponin-I High Sensitivity 11.8 ng/L (<3.5-17.0)
[2022-05-09 17:44] VITALS: BP 114/59; PULSE 67
[2022-05-09 17:45] VITALS: BP 116/97; BP 120/71; PULSE 73; PULSE 86
[2022-05-09 17:48] VITALS: BP 116/71; PULSE 75; RESP 25; TEMP 36.8; O2SAT 98
[2022-05-09 17:50] LABS: COVID-19 Test Negative (Negative); IDNOW Serial# 16C4AD1C
[2022-05-09 17:50] LABS: Lactic Acid 1.1 mmol/L (0.5-2.0)
[2022-05-09 17:58] LABS: IDNOW Serial# BCCEAD1C; Influenza A Negative (Negative); Influenza B2 Positive (Negative)
[2022-05-09 18:00] LABS: B Type Natriuretic Peptide 216 pg/mL (<100)
== END 2022-05-09 18:48 | disposition home or self-care (01) ==
PROVIDERS: Emergency Provider Emergency Medicine; PCP Family Medicine
DX: J11.1 Influenza due to unidentified influenza virus with other respiratory manifestations (principal); R42 Dizziness and giddiness; R06.02 Shortness of breath; Z87.891 Personal history of nicotine dependence; Z20.822 Contact with and (suspected) exposure to COVID-19
CPT/HCPCS: 71045; 80048; 80076; 82803; 83605; 83880; 84484; 85025; 85610; 87040; 87502; 87635; 93005; 99284

== ENCOUNTER 2022-06-04 08:46 | Outpatient (REF) | payer MEDICARE, SELFPAY ==
--- NOTE | ~2022-06-04 | MM_ITS ---
EXAMINATION: MM SCREENING DIGITAL BREAST TOMOSYNTHESIS, BILATERAL CLINICAL INFORMATION: Screening. Asymptomatic. The lifetime risk of breast cancer based on the Tyrer-Cuzick Model is 1.4%. COMPARISON: Mammography: 05/29/2021 and studies dating back to 10/25/2009 TECHNIQUE: Digital breast tomosynthesis is performed in both the craniocaudal and mediolateral oblique views along with computer-aided detection (CAD). Synthesized 2D images are generated from the tomosynthesis. FINDINGS: There are scattered areas of fibroglandular density (ACR BI-RADS breast composition Category b). There is multiplicity and bilaterality of calcifications. There is a question of some increasing calcifications seen in the right breast anteriorly, retroareolar region, which on tomosynthesis views appear to be related to combination of vascular calcifications and artifact from tomosynthesis. No new abnormal dominant masses are identified. MM/MM tomosynthesis screening BI IMPRESSION: No significant changes from prior exam. Combination of vascular and artifactual calcifications retroareolar region of the right breast on craniocaudal view only. ASSESSMENT: BI-RADS 2: Benign RECOMMENDATION: Routine annual mammography screening. This patient's information was entered into a reminder system with a target due date for their next mammogram.
== END 2022-06-04 08:47 | disposition home or self-care (01) ==
LOC: HO.MAMMO 08:46
PROVIDERS: PCP Family Medicine; Visit Provider Family Medicine
DX: Z12.31 Encounter for screening mammogram for malignant neoplasm of breast (principal)
CPT/HCPCS: 77063; 77067

== ENCOUNTER 2022-08-18 09:00 | Outpatient (RCR) | payer MEDICARE, SELFPAY ==
[2022-07-21 15:06] VITALS: BP 116/56; PULSE 61
== END 2022-09-24 08:21 | disposition home or self-care (01) ==
LOC: HO.PT 09:00
PROVIDERS: PCP Family Medicine; Visit Provider Family Medicine
DX: R42 Dizziness and giddiness (principal)
CPT/HCPCS: 97110; 97112; 97161

== ENCOUNTER 2022-12-30 02:46 | Emergency (ER) | payer MEDICARE, SELFPAY ==
--- NOTE | ~2022-12-30 | XR_ITS ---
EXAMINATION: XR RIBS, RIGHT CLINICAL INFORMATION: Fall pain confusion COMPARISON: Chest radiograph from 05/09/2022 TECHNIQUE: 5 views of the right ribs and chest FINDINGS: Stable volume loss of the left hemithorax. Stable moderate left-sided pleural effusion with subjacent atelectasis. Bilateral low lung volumes. Right basilar atelectasis. Cardiac mediastinal silhouette is stable. Aorta demonstrates atherosclerotic calcifications. Soft tissues are unremarkable. Degenerative changes of the thoracolumbar spine. No acute visualized right-sided rib fractures. XR/XR ribs RT min 3V w CXR1V IMPRESSION: 1. Stable volume loss of the left hemithorax. 2. Stable moderate left-sided pleural effusion with subjacent atelectasis. 3. Bilateral low lung volumes. 4. Right basilar atelectasis. 5. No acute visualized right-sided rib fractures.
[2022-12-30 03:02] VITALS: BP 130/78; BP 146/73; PULSE 60; PULSE 64; RESP 21; TEMP 36.4; O2SAT 96; O2SAT 98; BMI 27.2
[2022-12-30 04:00] VITALS: BP 132/78; PULSE 71; RESP 18; TEMP 36.5; O2SAT 96
[2022-12-30 06:00] VITALS: BP 119/62; PULSE 58; RESP 18; TEMP 36.7; O2SAT 98
--- NOTE | 2022-12-30 07:00 | ED_ITS ---
HPI - Fall General Chief Complaint: Fall Stated Complaint: R SIDE/BACK PAIN S/P FALL,-HEADSTRIKE PER EMS Time Seen by Provider: 12/30/22 06:57 Source: patient and old records reviewed Mode of arrival: EMS Limitations: no limitations History of Present Illness HPI Narrative: 82 yo female with PMH of ALS, CHF, CVA, TIA, non hodgkins lymphoma, pneumonia, she is on plavix for prior CVA. She has a new medication she is taking and hx of falls and dizziness she thinks the new med might be making her feel more dizzy at times. She denies CP/SOB, GIB symptoms. Last night she got up and felt like she was going to fall back (not new for her) and she fell backwards into the fridge striking her R posterior ribs. No LOC no headstrike no neck pain. She was able to get help in 20 to 30 minutes. She is upset she is here and is in pain in the ribs. MD complaint: fall Onset (ago): hour(s) (few) Fall from: standing Fall witnessed: no Place fall occurred: home Loss of consciousness: none Prolonged down time: no Symptoms prior to fall: none Context: history of frequent falls Location of injury: back (right posterior ribs) Severity: moderate Quality: aching Associated symptoms (after fall): denies Related Data Home Medications Medication Instructions Recorded Confirmed albuterol sulfate 5 mg/mL(0.5 %) 0.5 ml inhalation BID PRN wheezing 12/16/20 12/16/20 solution for nebulization albuterol sulfate 90 mcg/actuation 2 puff PO QID PRN wheezing 12/16/20 12/16/20 aerosol inhaler aspirin 81 mg tablet,delayed 81 mg PO DAILY 12/16/20 12/16/20 release bisoprolol fumarate 5 mg tablet 0.5 tab PO DAILY 12/16/20 12/16/20 famotidine 20 mg tablet (Pepcid) 20 mg PO DAILY PRN Gastric Reflux 12/16/20 12/16/20 fluticasone fur. 200 mcg-umeclid 1 puff inhalation DAILY 12/16/20 12/16/20 62.5 mcg-vilant 25 mcg inhalat.powder (Trelegy Ellipta) multivitamin 1 tab PO DAILY 12/16/20 12/16/20 polyethylene glycol 3350 17 gram 17 g PO DAILY PRN Constipation 12/16/20 12/16/20 oral powder packet (Miralax) sodium chloride 7 % for 4 ml inhalation BID PRN Wheezing 12/16/20 12/16/20 nebulization vitamin B complex 1 tab PO DAILY 12/16/20 12/16/20 Previous Rx's Medication Instructions Recorded clopidogrel 75 mg tablet (Plavix) 75 mg PO DAILY 30 days #30 tabs 12/18/20 furosemide 40 mg tablet (Lasix) 40 mg PO DAILY 30 days #30 tabs 12/18/20 diazepam 2 mg tablet 1 mg PO BID PRN anxiety #5 tabs 05/09/22 meclizine 25 mg tablet 25 mg PO TID PRN dizziness #20 tabs 05/09/22 lidocaine 5 % topical patch 1 patch topical DAILY #30 ea 12/30/22 tramadol 50 mg tablet 25 mg PO Q8H PRN pain #14 tabs 12/30/22 Allergies Allergy/AdvReac Type Severity Reaction Status Date / Time codeine Allergy Unknown Verified 12/16/20 14:36 fish derived [fish] Allergy Nausea and Verified 12/16/20 14:36 Vomiting Sulfa (Sulfonamide Allergy Unknown Verified 12/16/20 14:36 Antibiotics) tetanus and diphtheria Allergy Unknown Verified 12/16/20 14:36 toxoids Review of Systems Review of Systems: Constitutional : No Weight loss, No Fever, No Chills, ENT/Mouth : No Hearing loss, No Ear Pain, No Nasal Congestion, No Sinus Pain, No Hoarseness, No sore throat, No Rhinorrhea, No Swallowing Difficulty Cardiovascular : No Chest Pain, No SOB Respiratory : No Cough, No Dyspnea Gastrointestinal : No Nausea, No Vomiting, No Diarrhea, No abdominal Pain, No Hematochezia, No Melena Genitourinary : No Dysuria, No Urinary Frequency, No Hematuria, No Urinary Incontinence, Musculoskeletal : positive rib pain Skin : No Skin Lesions, No rash Neuro : No Weakness, No Numbness, No Paresthesias, no loss of bowel or bladder incontinence, no saddle anesthesia All other systems reviewed and are negative [facility] Past Medical History Attestation statement: The following information was validated with the patient. Medical History COPD (chronic obstructive pulmonary disease) CVA (cerebral vascular accident) Heart failure Knee abrasion Non-Hodgkin lymphoma in remission Pneumonia Stroke due to embolism TIA (transient ischemic attack) Surgical History Total knee replacement status Social History Social History Housing: House Do you presently have visiting nurse or other home services: No Patient Tobacco Use Status: Former Tobacco user Tobacco use type: Cigarette Smoked in Last 30 Days: No Use of substances other than those prescribed or required for medical reasons: No Advance Directives: No Advance Directives Information Provided: No service: No Current occupational status: retired Physical Exam Vital Signs: Vital Signs: Last Vital Signs Temp 98.0 F 12/30/22 06:00 Pulse 70 12/30/22 07:13 Resp 14 12/30/22 07:13 BP 138/74 12/30/22 07:13 Pulse Ox 97 12/30/22 07:13 O2 Del Method Room Air 12/30/22 07:13 BMI result Body Mass Index 27.2 Appearance: Alert. Oriented X3. No acute distress. Eyes: Pupils equal, round and reactive to light. ENT: Pharynx normal. atraumatic Neck: Normal inspection. Neck supple. no midline ttp CVS: Normal heart rate and rhythm. Pulses normal. Respiratory: No respiratory distress. Breath sounds normal. Abdomen: Soft and nontender. Back: no midline ttp, R posterior ribs contusion seen ttp no crepitus felt Skin: Skin warm and dry. Normal skin color. Normal skin turgor. Extremities: No lower extremity edema. no trauma seen Neuro: Oriented X 3. No motor deficit. No sensory deficit. Medications Administered Discontinued Medications Generic Name Dose Route Start Last Admin Trade Name Freq PRN Reason Stop Dose Admin Tramadol HCl 25 mg 12/30/22 07:10 12/30/22 07:21 Tramadol Hcl 50 Mg Tablet PO 12/30/22 07:11 25 mg ONCE ONE Administration Medical Decision Making Medical Decision Making MDM Narrative: 82 yo female with PMH of ALS, CHF, CVA, TIA, non hodgkins lymphoma, pneumonia, she is on plavix for prior CVA here with fall - hx of same in past. No head or neck pain. No extremity issue and on ground for 20 to 30 minutes. The patient had no LOC, no headstrike. Pain in R ribs. I have ordered rib films she has tolerated tramadol for pain in past without any effect or issue per her reports. Differential Diagnosis Differential Diagnoses: The differential diagnosis associated with the presentation includes rib contusions, rib fracture, pneumothorax Admission/Observation Consideration of admission/observation: Escalation of care including admission/observation considered no rib fractures, normal O2 feels safe for DC offered rehab but she refuses sending home with incentive spirometer Independent Interpretation I performed an independent interpretation of an: Plain X-Ray (no rib fractures stable chronic left lung findings) Radiology Impression Discussion of test interpretation with radiology: I have reviewed the radiologist's reading. External Record Review External record reviewed: Inpatient record Prescription Management I considered prescription management with: Pain Medication Discharge Plan Discharge Clinical Impression: Contusion of rib on right side Qualifiers: Encounter type: initial encounter Qualified Code(s): S20.211A - Contusion of right front wall of thorax, initial encounter Patient Disposition: Home, Self-Care Instructions: Rib Contusion (ED) Additional Instructions: RETURN FOR FEVERS, COUGH WITH SPUTUM PRODUCTION, DIFFICULTY BREATHING WORSENING PAIN OR ANY OTHER CONCERNS YOU ARE HIGH RISK FOR PNEUMONIA use incentive spirometer every hour while awake 5 to 10 times while on pain medications please take a stool softener to prevent constipation Prescriptions: New tramadol 50 mg tablet 25 mg PO Q8H PRN (Reason: pain) Qty: 14 0RF lidocaine 5 % adhesive patch,medicated 1 patch topical DAILY Qty: 30 0RF Rx Instructions: leave on most painful area for up to 12 hrs No Action bisoprolol fumarate 5 mg tablet 0.5 tab PO DAILY albuterol sulfate 90 mcg/actuation HFA aerosol inhaler 2 puff PO QID PRN (Reason: wheezing) albuterol sulfate 5 mg/mL solution for nebulization 0.5 ml inhalation BID PRN (Reason: wheezing) Rx Instructions: mix with 4ml hyper joselito sodium chloride 7 % solution for nebulization 4 ml inhalation BID PRN (Reason: Wheezing) Rx Instructions: mixed with albuterol Trelegy Ellipta 200-62.5-25 mcg blister with device 1 puff inhalation DAILY Rx Instructions: was taking spiriva multivitamin Tablet 1 tab PO DAILY polyethylene glycol 3350 [Miralax] 17 gram Powder In Packet 17 g PO DAILY PRN (Reason: Constipation) aspirin 81 mg Tablet,Delayed Release (Dr/Ec) 81 mg PO DAILY famotidine [Pepcid] 20 mg Tablet 20 mg PO DAILY PRN (Reason: Gastric Reflux) vitamin B complex Tablet 1 tab PO DAILY furosemide [Lasix] 40 mg tablet 40 mg PO DAILY 30 Days Qty: 30 0RF clopidogrel [Plavix] 75 mg tablet 75 mg PO DAILY 30 Days Qty: 30 0RF meclizine 25 mg tablet 25 mg PO TID PRN (Reason: dizziness) Qty: 20 0RF diazepam 2 mg tablet 1 mg PO BID PRN (Reason: anxiety) Qty: 5 0RF Rx Instructions: Only use in case of severe dizziness together with the meclizine
--- NOTE | 2022-12-30 07:05 | PC.NURSE ---
pt axox4. MD to bedside for primary eval. pt reporting R. upper back pain post fall; denies headstrike/loc. respirations even and unlabored, sats 96% RA, sinus amanda on monitor 58 bpm. awaiting further orders at this time.
[2022-12-30 07:13] VITALS: BP 138/74; PULSE 70; RESP 14; O2SAT 97
[2022-12-30] MEDS: traMADoL HCL 50 MG TABLET 25 MG PO (07:21)
--- NOTE | 2022-12-30 07:38 | PC.NURSE ---
pt reporting 10/10 back pain; pt medicated per mar. pt repositioned for comfort. denies questions/concerns at this time. awaiting imaging for xray. call torrez within reach.
--- NOTE | 2022-12-30 08:51 | PC.NURSE ---
assisted pt to commode, tolerated well. pt back in bed. pt to x-ray.
[2022-12-30 10:33] VITALS: BP 145/76; PULSE 62; RESP 21; TEMP 36.6; O2SAT 94
[2022-12-30] MEDS: Lidocaine 4 % Patch ADH..PATCH 1 PATCH TRANSDERMA (10:36)
== END 2022-12-30 10:52 | disposition home or self-care (01) ==
PROVIDERS: Emergency Provider Emergency Medicine; PCP Family Medicine
DX: S20.211A Contusion of right front wall of thorax, initial encounter (principal); W18.39XA Other fall on same level, initial encounter; Y93.9 Activity, unspecified; Y92.019 Unspecified place in single-family (private) house as the place of occurrence of the external cause; Y99.9 Unspecified external cause status
CPT/HCPCS: 71101; 99283; 99284

== ENCOUNTER 2023-02-19 11:00 | Outpatient (RCR) | payer MEDICARE, SELFPAY ==
[2022-12-21 11:08] VITALS: BP 125/57; PULSE 61
== END 2023-02-22 08:10 | disposition home or self-care (01) ==
LOC: HO.PT 11:00
PROVIDERS: PCP Family Medicine; Visit Provider Family Medicine
DX: G12.20 Motor neuron disease, unspecified (principal); Z74.09 Other reduced mobility
CPT/HCPCS: 97110; 97162; 97530

== ENCOUNTER 2023-02-20 15:42 | Emergency (ER) | payer MEDICARE, SELFPAY ==
[2023-02-20 15:46] VITALS: BP 114/0; BP 128/61; PULSE 61; PULSE 63; RESP 18; TEMP 36.5; O2SAT 95; BMI 26.1
[2023-02-20 17:13] VITALS: BP 140/67; PULSE 79; RESP 16; TEMP 36.8; O2SAT 98
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
[2023-02-20] MEDS: Bacitracin Oint 0.9 GM PACKET 1 APPL TOPICAL (17:30)
== END 2023-02-20 17:36 | disposition home or self-care (01) ==
PROVIDERS: Emergency Provider Internal Medicine; PCP Family Medicine
DX: T22.112A Burn of first degree of left forearm, initial encounter (principal); X13.1XXA Other contact with steam and other hot vapors, initial encounter; Y93.G3 Activity, cooking and baking; Y92.010 Kitchen of single-family (private) house as the place of occurrence of the external cause; Y99.9 Unspecified external cause status
CPT/HCPCS: 99283

== ENCOUNTER 2023-05-08 16:46 | Emergency (ER) | payer MEDICARE, SELFPAY ==
--- NOTE | ~2023-05-08 | CT_ITS ---
EXAMINATION: CT HEAD WITHOUT CONTRAST CT CERVICAL SPINE WITHOUT CONTRAST CLINICAL INFORMATION: Trauma. COMPARISON: CT chest from 12/16/2020. TECHNIQUE: Contiguous axial imaging was performed from the skull base to vertex without intravenous administration of contrast. Contiguous axial imaging was performed from the upper chest through the skull base without intravenous administration of contrast. Coronal and sagittal reformats were obtained at the acquisition workstation. This CT examination was performed using dose optimization techniques as appropriate, variously including the following: *Automated exposure control. *Adjustment of mA and/or kV according to patient size (this includes techniques or standardized protocols for targeted exams where dose is matched to indication/reason for exam; i.e. extremities or head). *Use of iterative reconstruction technique. DLP: 927 mGy-cm FINDINGS: Head: There is no evidence of acute intracranial hemorrhage or edematous territorial infarction. Pittman-white matter differentiation is preserved. A few foci of hypoattenuation in the periventricular and deep white matter are consistent with mild microangiopathy. Proportional prominence of the ventricles and sulcal spaces without evidence of obstructive hydrocephalus. No abnormal mass effect or midline shift. No extra-axial fluid collections. Calcific atherosclerotic disease of the intracranial internal carotid and vertebral arteries. No hyperdense vessel sign. Moderate subgaleal hematoma along the posterior aspect of the left parietal bone, measuring up to 0.6 cm in depth. No associated acute osseous abnormalities. Mild mucosal thickening of the paranasal sinuses. Mild rightward nasal septal deviation. The mastoid air cells and middle ear cavities are clear. Cervical Spine: The atlantooccipital and atlantoaxial articulations remain well aligned. Mild degenerative arthropathy of the atlantodental articulation. Minimal degenerative anterolisthesis of C3 on C4. Mild degenerative retrolisthesis of C4 on C5. Otherwise, there is anatomic alignment of the vertebral bodies and posterior elements. No evidence of acute fracture or subluxation. The vertebral body heights are maintained. Facet and uncovertebral joint arthropathy leads to osseous encroachment on the neural foramina from C3-C7. There is no prevertebral soft tissue swelling. The thyroid gland and remaining cervical soft tissues are within normal limits. Chronic small loculated effusion along the medial aspect of the left lung apex. Otherwise, the lung apices demonstrate no abnormalities. Moderate calcific atherosclerotic disease of the aortic arch. CT/CT cervical spine wo IV con IMPRESSION: 1. No evidence of acute intracranial hemorrhage or edematous territorial infarction. Mild underlying microangiopathy and generalized cerebral volume loss. 2. No evidence of acute fracture or traumatic subluxation of the cervical spine. Moderate multilevel degenerative spondyloarthropathy of the cervical spine. 3. Left posterior scalp hematoma. No associated osseous abnormalities. 4. Chronic small loculated effusion along the medial aspect of the left lung apex.
--- NOTE | ~2023-05-08 | XR_ITS ---
EXAMINATION: XR LUMBOSACRAL SPINE CLINICAL INFORMATION: Fall, pain COMPARISON: None available. TECHNIQUE: Three views of the lumbosacral spine. FINDINGS: The bones are demineralized. No radiographic evidence for acute compression deformity. Moderate degenerative disc disease at L1-L2 and mild at L5-S1. No listhesis Posterior elements appear intact. Sacroiliac joints are intact. Atherosclerotic calcification in the abdominal aorta. XR/XR lumbar spine 2-3V IMPRESSION: Osteopenia. No radiographic evidence for acute compression deformity.
[2023-05-08 16:54] VITALS: BP 132/92; PULSE 75; O2SAT 99
[2023-05-08 17:06] VITALS: BP 144/65; PULSE 62; RESP 16; TEMP 36.6; O2SAT 96; BMI 25.4
[2023-05-08 17:40] VITALS: TEMP 37.1
--- NOTE | 2023-05-08 18:51 | ED_ITS ---
HPI - General Adult General Chief complaint: Fall Stated complaint: fall with head strike Time Seen by Provider: 05/08/23 17:38 Source: patient, RN notes reviewed and old records reviewed Mode of arrival: EMS Limitations: other (Patient has a hard C-collar) History of Present Illness HPI narrative: 82 old female with past medical history significant for ALS, CHF presents for evaluation after a fall. Patient reports that she was trying to transfer from a seated position to her Rollator and she fell down striking the back of her head Denies loss of consciousness Patient takes Plavix and baby aspirin daily but no other anticoagulation She reports pain to the back of her head and lower back No other complaints or concerns Related Data Home Medications Medication Instructions Recorded Confirmed albuterol sulfate 5 mg/mL(0.5 %) 0.5 ml inhalation BID PRN wheezing 12/16/20 12/16/20 solution for nebulization albuterol sulfate 90 mcg/actuation 2 puff PO QID PRN wheezing 12/16/20 12/16/20 aerosol inhaler aspirin 81 mg tablet,delayed 81 mg PO DAILY 12/16/20 12/16/20 release bisoprolol fumarate 5 mg tablet 0.5 tab PO DAILY 12/16/20 12/16/20 famotidine 20 mg tablet (Pepcid) 20 mg PO DAILY PRN Gastric Reflux 12/16/20 12/16/20 fluticasone fur. 200 mcg-umeclid 1 puff inhalation DAILY 12/16/20 12/16/20 62.5 mcg-vilant 25 mcg inhalat.powder (Trelegy Ellipta) multivitamin 1 tab PO DAILY 12/16/20 12/16/20 polyethylene glycol 3350 17 gram 17 g PO DAILY PRN Constipation 12/16/20 12/16/20 oral powder packet (Miralax) sodium chloride 7 % for 4 ml inhalation BID PRN Wheezing 12/16/20 12/16/20 nebulization vitamin B complex 1 tab PO DAILY 12/16/20 12/16/20 Previous Rx's Medication Instructions Recorded clopidogrel 75 mg tablet (Plavix) 75 mg PO DAILY 30 days #30 tabs 12/18/20 furosemide 40 mg tablet (Lasix) 40 mg PO DAILY 30 days #30 tabs 12/18/20 diazepam 2 mg tablet 1 mg (1/2 x 2 mg) PO BID PRN 05/09/22 anxiety #5 tabs meclizine 25 mg tablet 25 mg PO TID PRN dizziness #20 tabs 05/09/22 lidocaine 5 % topical patch 1 patch topical DAILY #30 ea 12/30/22 tramadol 50 mg tablet 25 mg (1/2 x 50 mg) PO Q8H PRN 12/30/22 pain #14 tabs Allergies Allergy/AdvReac Type Severity Reaction Status Date / Time codeine Allergy Unknown Verified 05/08/23 17:12 fish derived [fish] Allergy Nausea and Verified 05/08/23 17:12 Vomiting Sulfa (Sulfonamide Allergy Unknown Verified 05/08/23 17:12 Antibiotics) tetanus and diphtheria Allergy Unknown Verified 05/08/23 17:12 toxoids Review of Systems Constitutional: Constitutional: Denies body ache(s), Denies chills, Denies fever(s), Reports frequent falls and Reports headache(s) ENT: Reports headache(s) and Reports neck pain Cardiovascular: Cardiovascular: Denies chest pain and Denies dyspnea Respiratory: Respiratory: Denies cough and Denies dyspnea Musculoskeletal: Musculoskeletal: Reports back pain and Reports neck pain Neurologic: Reports frequent falls and Reports headache(s) PMFSH Past Medical History Onset Date is defined in the Problem List Problems that require an onset date and time if occurred within 24 hrs of arrival to the ED Aortic Dissection and Rupture; Neurologic impairment; Cardiopulmonary Arrest; Endotracheal Intubation; Insertion or Replacement of Mechanical Circulatory Assist Device Medical History COPD (chronic obstructive pulmonary disease) CVA (cerebral vascular accident) Heart failure Knee abrasion Non-Hodgkin lymphoma in remission Pneumonia Stroke due to embolism TIA (transient ischemic attack) Surgical History Total knee replacement status Social History Social History Housing: House Do you presently have visiting nurse or other home services: No Patient Tobacco Use Status: Former Tobacco user Tobacco use type: Cigarette Advance Directives: No Advance Directives Information Provided: Yes service: No Current occupational status: retired Physical Exam ED Vital Signs: Vital Signs - 24 hr 05/08/23 17:06 05/08/23 17:40 Temperature 97.9 F 98.8 F Pulse Rate 62 Respiratory Rate 16 Blood Pressure 144/65 H Pulse Oximetry 96 Oxygen Delivery Method Room Air BMI result Body Mass Index 25.4 Const General: healthy appearing, comfortable, no acute distress, alert and awake Nutritional Appearance: well nourished Orientation/consciousness: patient oriented x3 HENMT Other: No obvious wounds, contusions, bruising to the Eyes Eyelids: Yes eyelids normal Conjunctivae: conjunctivae normal Sclerae: sclerae normal Corneas: corneas normal Pupils: Equal, round and reactive pupils present EOM: EOMs intact bilaterally Resp Effort & Inspection: normal respiratory effort, able to speak in complete sentences and not labored GI Inspection: No distended Palpation (GI): Soft to palpation, not firm, nontender, no guarding and not rigid Back/Spine/Pelvis Other: Patient has a hard C-collar Skin General skin exam: no rashes or lesions noted and elasticity normal Neuro General: patient oriented x3 Cranial nerves: Yes Equal, round and reactive pupils present and Yes Bilaterally intact EOM present Cognition (Neuro): normal cognition Extrem Other: Moving all extremities well without any obvious deformities Course Reevaluation(s) Reevaluation #1: Patient's lumbar x-ray shows no evidence of fracture, Time: 21:22 Medical Decision Making Medical Decision Making MDM Narrative: 82-year-old female presents for evaluation after a fall. She presents in his C- collar. She does complain of a headache and neck pain. Plan for CT scan the brain and cervical spine given the fall. Fall occurred while she was attempting to get to her rolling walker, therefore we will not pursue syncope workup Differential Diagnosis Differential Diagnoses: The differential diagnosis associated with the presentation includes Mechanical fall Frequent falls ALS Intracranial hemorrhage Cervical fracture Muscle strain Independent Interpretation I performed an independent interpretation of an: Plain X-Ray (No vertebral fracture) and CT Scan (No acute intracranial hemorrhage) Radiology Impression Discussion of test interpretation with radiology: I have reviewed the radiologist's reading. Discharge Plan Discharge Clinical Impression: Fall, Contusion of head Patient Disposition: Home, Self-Care Instructions: Hematoma (ED) Additional Instructions: Your CT scan did not show any traumatic injuries to the head, cervical spine and your x-ray of your lower back did not show any fractures Prescriptions: No Action bisoprolol fumarate 5 mg tablet 0.5 tab PO DAILY albuterol sulfate 90 mcg/actuation HFA aerosol inhaler 2 puff PO QID PRN (Reason: wheezing) albuterol sulfate 5 mg/mL solution for nebulization 0.5 ml inhalation BID PRN (Reason: wheezing) Rx Instructions: mix with 4ml hyper joselito sodium chloride 7 % solution for nebulization 4 ml inhalation BID PRN (Reason: Wheezing) Rx Instructions: mixed with albuterol Trelegy Ellipta 200-62.5-25 mcg blister with device 1 puff inhalation DAILY Rx Instructions: was taking spiriva multivitamin Tablet 1 tab PO DAILY polyethylene glycol 3350 [Miralax] 17 gram Powder In Packet 17 g PO DAILY PRN (Reason: Constipation) aspirin 81 mg Tablet,Delayed Release (Dr/Ec) 81 mg PO DAILY famotidine [Pepcid] 20 mg Tablet 20 mg PO DAILY PRN (Reason: Gastric Reflux) vitamin B complex Tablet 1 tab PO DAILY furosemide [Lasix] 40 mg tablet 40 mg PO DAILY 30 Days Qty: 30 0RF clopidogrel [Plavix] 75 mg tablet 75 mg PO DAILY 30 Days Qty: 30 0RF meclizine 25 mg tablet 25 mg PO TID PRN (Reason: dizziness) Qty: 20 0RF diazepam 2 mg tablet 1 mg PO BID PRN (Reason: anxiety) Qty: 5 0RF Rx Instructions: Only use in case of severe dizziness together with the meclizine tramadol 50 mg tablet 25 mg PO Q8H PRN (Reason: pain) Qty: 14 0RF lidocaine 5 % adhesive patch,medicated 1 patch topical DAILY Qty: 30 0RF Rx Instructions: leave on most painful area for up to 12 hrs
--- NOTE | 2023-05-08 20:16 | PC.NURSE ---
C-collar removed by provider with negative CT scan. Radiology notified for lumbar XR.
== END 2023-05-08 23:19 | disposition home or self-care (01) ==
PROVIDERS: Emergency Provider Internal Medicine
DX: S00.93XA Contusion of unspecified part of head, initial encounter (principal); W18.39XA Other fall on same level, initial encounter; Z86.73 Personal history of transient ischemic attack (TIA), and cerebral infarction without residual deficits; Y93.89 Activity, other specified; Y92.019 Unspecified place in single-family (private) house as the place of occurrence of the external cause; Y99.9 Unspecified external cause status; Z79.899 Other long term (current) drug therapy; Z79.01 Long term (current) use of anticoagulants; Z79.82 Long term (current) use of aspirin
CPT/HCPCS: 51701; 70450; 72100; 72125; 99284

== ENCOUNTER 2023-05-11 06:13 | Emergency (ER) | payer MEDICARE, SELFPAY ==
[2023-05-11] VITALS (8 sets, daily range): BP systolic 112–148; BP diastolic 62–91; PULSE 72–104; RESP 16–18; TEMP 36.8–36.9; O2SAT 94–98; BMI 25.4
--- NOTE | ~2023-05-11 | CT_ITS ---
EXAMINATION: CT LUMBAR SPINE WITHOUT CONTRAST CLINICAL INFORMATION: Fall. COMPARISON: None available. TECHNIQUE: 2 mm thin axial and reformatted 2 mm thin sagittal coronal images of lumbar spine were obtained. This CT examination was performed using dose optimization techniques as appropriate, variously including the following: *Automated exposure control *Adjustment of mA and/or kV according to patient size (this includes techniques or standardized protocols for targeted exams where dose is matched to indication/reason for exam; i.e. extremities or head) *Use of iterative reconstruction technique DLP; 745 mGy-cm FINDINGS: There is normal lumbar lordosis. The vertebral heights and alignment is normal. There is loss of L1-L2 disc height. Rest of the disc heights are maintained normal. There is no evidence of disc bulge, herniation or spinal canal stenosis at any of the disc levels. The neural foramina are patent bilaterally. No aggressive lytic or sclerotic process seen. Paravertebral soft tissues are normal. CT/CT lumbar spine wo IV con IMPRESSION: Degenerative disc changes L1-L2 disc level with vacuum disc phenomena. There is no visible acute fracture, dislocation or subluxation seen.
--- NOTE | ~2023-05-11 | CT_ITS ---
EXAMINATION: CT PELVIS WITHOUT CONTRAST CLINICAL INFORMATION: Pain after fall COMPARISON: None available. TECHNIQUE: Helical scanning was performed with submillimeter collimation through the pelvis. Sagittal and coronal multiplanar 2-D reconstructions were obtained. This CT examination was performed using dose optimization techniques as appropriate, variously including the following: *Automated exposure control *Adjustment of mA and/or kV according to patient size (this includes techniques or standardized protocols for targeted exams where dose is matched to indication/reason for exam; i.e. extremities or head) *Use of iterative reconstruction technique DLP: 353 mGy-cm FINDINGS: Diffuse osteopenia. No acute pelvic fracture. No fracture of the sacrum or coccyx. No fracture or dislocation of either hip. The bladder is relatively decompressed but unremarkable. Unremarkable CT appearance of the uterus. Colonic diverticulosis without CT evidence to suggest active diverticulitis. No gross free pelvic fluid. CT/CT pelvis wo IV con IMPRESSION: No pelvic fracture.
--- NOTE | 2023-05-11 06:48 | ED_ITS ---
HPI - General Adult General Chief complaint: Back Pain/Injury Stated complaint: BACK PAIN,FALL 3 DAYS AGO PER EMS Time Seen by Provider: 05/11/23 06:41 Source: patient and EMS Mode of arrival: EMS Limitations: no limitations History of Present Illness HPI narrative: Patient is an 82 year old assigned female at with a history of CHF and COPD presenting to the emergency department today with low back pain after a fall. Patient states that she fell 3 days ago and was evaluated for her neck pain and headache. Patient states that she is having worsening low back pain. Patient denies any dizziness, lightheadedness, abdominal pain, nausea, vomiting, fever, chills, blurry vision, double vision, loss of vision, chest pain, difficulty breathing, shortness of breath, night sweats, pain with urination, increased urinary frequency, increased urinary urgency, blood in her urine or stool, syncope or a near syncopal episode, recent trauma or falls, bowel incontinence, bladder incontinence, bowel retention, bladder retention, or any other complaints at this time. Onset (ago): day(s) (3) Location: back Radiation: non-radiation Severity: mild Severity scale (1-10): 3 Quality: dull Pain Consistency: constant Relieving factors: none Exacerbating factors: none Associated symptoms: denies other symptoms Treatments prior to arrival: none Related Data Home Medications Medication Instructions Recorded Confirmed albuterol sulfate 5 mg/mL(0.5 %) 0.5 ml inhalation BID PRN wheezing 12/16/20 12/16/20 solution for nebulization albuterol sulfate 90 mcg/actuation 2 puff PO QID PRN wheezing 12/16/20 12/16/20 aerosol inhaler aspirin 81 mg tablet,delayed 81 mg PO DAILY 12/16/20 12/16/20 release bisoprolol fumarate 5 mg tablet 0.5 tab PO DAILY 12/16/20 12/16/20 famotidine 20 mg tablet (Pepcid) 20 mg PO DAILY PRN Gastric Reflux 12/16/20 12/16/20 fluticasone fur. 200 mcg-umeclid 1 puff inhalation DAILY 12/16/20 12/16/20 62.5 mcg-vilant 25 mcg inhalat.powder (Trelegy Ellipta) multivitamin 1 tab PO DAILY 12/16/20 12/16/20 polyethylene glycol 3350 17 gram 17 g PO DAILY PRN Constipation 12/16/20 12/16/20 oral powder packet (Miralax) sodium chloride 7 % for 4 ml inhalation BID PRN Wheezing 12/16/20 12/16/20 nebulization vitamin B complex 1 tab PO DAILY 12/16/20 12/16/20 Previous Rx's Medication Instructions Recorded clopidogrel 75 mg tablet (Plavix) 75 mg PO DAILY 30 days #30 tabs 12/18/20 furosemide 40 mg tablet (Lasix) 40 mg PO DAILY 30 days #30 tabs 12/18/20 diazepam 2 mg tablet 1 mg (1/2 x 2 mg) PO BID PRN 05/09/22 anxiety #5 tabs meclizine 25 mg tablet 25 mg PO TID PRN dizziness #20 tabs 05/09/22 lidocaine 5 % topical patch 1 patch topical DAILY #30 ea 12/30/22 tramadol 50 mg tablet 25 mg (1/2 x 50 mg) PO Q8H PRN 12/30/22 pain #14 tabs Allergies Allergy/AdvReac Type Severity Reaction Status Date / Time codeine Allergy Unknown Verified 05/11/23 06:25 fish derived [fish] Allergy Nausea and Verified 05/11/23 06:25 Vomiting Sulfa (Sulfonamide Allergy Unknown Verified 05/11/23 06:25 Antibiotics) tetanus and diphtheria Allergy Unknown Verified 05/11/23 06:25 toxoids Review of Systems 2 Constitutional: Constitutional: Reports no additional constitutional complaints, Denies chills, Denies fever(s) and Denies night sweats Eyes: Eyes: Reports no additional eye complaints, Denies blurry vision, Denies change in vision, Denies diplopia, Denies eye discharge, Denies loss of vision and Denies eye pain ENT: Denies dizziness Cardiovascular: Cardiovascular: Reports no additional cardiovascular complaints, Denies chest pain, Denies lightheadedness, Denies Loss of Consciousness and Denies dyspnea Respiratory: Respiratory: Reports no additional respiratory complaints and Denies dyspnea Gastrointestinal: Gastrointestinal: Reports no additional gastrointestinal complaints, Denies abdominal pain, Denies melena, Denies hematochezia, Denies change in bowel habits and Denies change in stool character Genitourinary: Genitourinary: Denies hematuria, Denies urinary frequency, Denies dysuria, Denies urinary incontinence, Denies urinary hesitancy and Denies urinary urgency Musculoskeletal: Musculoskeletal: Reports no additional musculoskeletal complaints, Reports back pain, Denies numbness and Denies tingling Neurologic: Denies dizziness, Denies loss of vision, Denies numbness and Denies tingling Psychiatric: Psychiatric: Reports no additional psychiatric complaints Endocrine: Endocrine: Reports no additional endocrine complaints Hematologic/Lymphatic: Hematologic/Lymphatic: Reports no additional hematologic/lymphatic complaints Allergic/Immunologic: Allergic/Immunologic: Reports no additional allergic/immunologic complaints PMFSH Past Medical History Attestation statement: The following information was validated with the patient. Source: old records reviewed and nursing notes reviewed Onset Date is defined in the Problem List Problems that require an onset date and time if occurred within 24 hrs of arrival to the ED Aortic Dissection and Rupture; Neurologic impairment; Cardiopulmonary Arrest; Endotracheal Intubation; Insertion or Replacement of Mechanical Circulatory Assist Device Medical History Shortness of breath Pleural effusion CVA (cerebral vascular accident) Knee abrasion Stroke due to embolism Pneumonia Heart failure TIA (transient ischemic attack) Non-Hodgkin lymphoma in remission COPD (chronic obstructive pulmonary disease) Surgical History Total knee replacement status Social History Social History Housing: House Do you presently have visiting nurse or other home services: No Patient Tobacco Use Status: Former Tobacco user Tobacco use type: Cigarette Advance Directives: No Advance Directives Information Provided: No service: No Current occupational status: retired Physical Exam ED Vital Signs: Vital Signs - 24 hr 05/11/23 06:22 05/11/23 10:57 Temperature 98.4 F Pulse Rate 80 72 Respiratory Rate 16 18 Blood Pressure 126/67 112/62 Pulse Oximetry 95 94 Oxygen Delivery Method Room Air Room Air BMI result Body Mass Index 25.4 Const General: cooperative, no acute distress, alert and awake Nutritional Appearance: well nourished Orientation/consciousness: patient oriented x3 Limitations: no limitations HENMT Head: Yes normal to inspection and Yes atraumatic Ears: hearing grossly normal bilaterally and external ears normal General nose exam: Normal external nose present, no nasal discharge noted and no epistaxis Face and sinus: Yes normal facial exam, No abrasion and No laceration Mouth: Normal oral and palatal mucosa present, no drooling and no muffled voice Eyes General: appearance normal, both eyes and all related structures Periorbital: periorbital findings normal Eyelids: Yes eyelids normal Conjunctivae: conjunctivae normal Pupils: Equal, round and reactive pupils present EOM: EOMs intact bilaterally Neck Neck: Yes normal visual inspection, Yes full ROM and Yes no lymphadenopathy Chest Chest palpation & inspection: normal inspection of the chest Resp Effort & Inspection: normal respiratory effort and able to speak in complete sentences GI Inspection: Yes normal to inspection General: Yes no CVA tenderness Back/Spine/Pelvis Back: no CVA tenderness Cervical Spine: normal cervical lordosis and cervical ROM normal Thoracic/Lumbar Spine: thoracic and lumbar spine normal to inspection Pelvis: no pain with anterior-posterior compression Neuro General: patient oriented x3 and moves all extremities Cranial nerves: Yes Equal, round and reactive pupils present Cognition (Neuro): normal cognition Motor exam (neuro): 5/5 motor strength present throughout Sensory Exam: Normal double simultaneous stimulation for sensation Coordination: [id number] test normal Extrem General: Yes normal to inspection, Yes full ROM and Yes capillary refill normal Psych Appearance: grossly normal Mental Status: mental status grossly normal Affect: normal affect Attitude: cooperative Thought process: Normal thought process present Thought content: Normal thought content present Insight: Good insight present (Psych) Medications Administered Discontinued Medications Generic Name Dose Route Start Last Admin Trade Name Freq PRN Reason Stop Dose Admin Cyclobenzaprine HCl 5 mg 05/11/23 06:59 05/11/23 07:29 Cyclobenzaprine Hcl 5 Mg Tablet PO 05/11/23 07:00 5 mg ONCE ONE Administration Medical Decision Making Medical Decision Making [facility] Narrative: Patient is an 82 year old assigned female at with a history of CHF and COPD presenting to the emergency department today with low back pain and weakness. Patient's physical exam showed a weak individual incapable of pivoting to a commode without extensive help. Patient's blood work showed a mildly elevated BNP however, patient has no clinical signs of heart failure and this is consistently elevated for her. Patient's initial trop was elevated however, the repeat was negative for a significant delta. Patient's urine is pending. Patient's EKG was unremarkable. Patient's lumbar and pelvis CTs showed no acute process. I explained my physical exam findings as well as all test results to the patient. I answered all questions asked by the patient. Patient to be evaluated by PT and Case management for possible placement in STR. Differential Diagnosis Differential Diagnoses: The differential diagnosis associated with the presentation includes Weakness Fall Back pain Hip pain Admission/Observation Consideration of admission/observation: Escalation of care including admission/observation considered Patient would have been admitted to the hospital had her work up had any findings where hospital admission was appropriate and her clinical presentation warranted hospital admission. Lab Data [facility] Lab Attestation statement: I reviewed the patient's lab results. My interpretation of these results are in the [facility] Rationale portion of this note. 05/11/23 08:22 05/11/23 08:22 Labs: Lab Results 05/11/23 05/11/23 Range/Units 08:22 10:23 WBC 9.7 (4.8-10.8) X10*3/uL RBC 3.60 L (4.20-5.50) X10*6/uL Hgb 10.5 L (12.0-16.0) g/dl Hct 32.7 L (37.0-47.0) % MCV 90.8 (80.0-98.0) fL MCH 29.2 (27.0-33.0) pg MCHC 32.1 (31.0-35.0) g/dl RDW 13.6 (11.0-16.0) % Plt Count 239 D (160-400) X10*3/uL MPV 10.1 (9.4-12.3) fL Immature Gran % (Auto) 0.4 (0.0-0.4) % Neut % (Auto) 78.5 H (45-73) % Lymph % (Auto) 13.4 L (20-40) % Glascock % (Auto) 5.9 (2-11) % Eos % (Auto) 1.4 (0-4) % Baso % (Auto) 0.4 (0-2) % Lymph # (Auto) 1.3 (1.2-4.9) X10*3/uL Glascock # (Auto) 0.6 (0.1-1.2) X10*3/uL Eos # (Auto) 0.1 (0.0-0.4) X10*3/uL Baso # (Auto) 0.0 (0.0-0.2) X10*3/uL Abs Immat Gran (auto) 0.04 H (0.00-0.03) X10*3/uL Absolute Neuts (auto) 7.6 (2.0-8.3) x10*3/uL Absolute Nucleated RBC 0.000 (0.0-0.012) X10*3/uL Nucleated RBC % (auto) 0.0 (0.0-0.2) /100WBC Sodium 138 (135-145) mmol/L Potassium 4.2 (3.3-5.1) mmol/L Chloride 104 (96-108) mmol/L Carbon Dioxide 25 (22-29) mmol/L Anion Gap 13 (12-20) BUN 15 (9-16) mg/dL Creatinine 0.95 (0.5-1.4) mg/dL Estim Creat Clear Calc 36.3 Estimated GFR 57 Random Glucose 96 (60-115) mg/dL Calcium 9.7 (8.4-10.2) mg/dL Magnesium 1.7 (1.6-2.6) mg/dL Total Bilirubin 0.6 (0.0-1.0) mg/dL AST 23 (5-31) U/L ALT 18 (0-31) U/L Alkaline Phosphatase 57 (39-117) U/L Troponin I High Sens 17.2 H 19.3 H (<3.5-17.0) ng/L B-Natriuretic Peptide 462 H (<100) pg/mL Total Protein 7.4 (6.5-8.0) g/dL Albumin 3.9 (3.5-5.0) g/dL Independent Interpretation I performed an independent interpretation of an: EKG and CT Scan Interpretation: My interpretation is in agreement with the radiologist's impression of these imaging studies. - EXAMINATION: CT PELVIS WITHOUT CONTRAST CLINICAL INFORMATION: Pain after fall COMPARISON: None available. TECHNIQUE: Helical scanning was performed with submillimeter collimation through the pelvis. Sagittal and coronal multiplanar 2-D reconstructions were obtained. This CT examination was performed using dose optimization techniques as appropriate, variously including the following: *Automated exposure control *Adjustment of mA and/or kV according to patient size (this includes techniques or standardized protocols for targeted exams where dose is matched to indication/reason for exam; i.e. extremities or head) *Use of iterative reconstruction technique DLP: 353 mGy-cm FINDINGS: Diffuse osteopenia. No acute pelvic fracture. No fracture of the sacrum or coccyx. No fracture or dislocation of either hip. The bladder is relatively decompressed but unremarkable. Unremarkable CT appearance of the uterus. Colonic diverticulosis without CT evidence to suggest active diverticulitis. No gross free pelvic fluid. CT/CT pelvis wo IV con IMPRESSION: No pelvic fracture. Dictated By: Sam Curran MD Signed By: Electronically signed by Sam Curran MD 05/11/23 0839 - EXAMINATION: CT LUMBAR SPINE WITHOUT CONTRAST CLINICAL INFORMATION: Fall. COMPARISON: None available. TECHNIQUE: 2 mm thin axial and reformatted 2 mm thin sagittal coronal images of lumbar spine were obtained. This CT examination was performed using dose optimization techniques as appropriate, variously including the following: *Automated exposure control *Adjustment of mA and/or kV according to patient size (this includes techniques or standardized protocols for targeted exams where dose is matched to indication/reason for exam; i.e. extremities or head) *Use of iterative reconstruction technique DLP; 745 mGy-cm FINDINGS: There is normal lumbar lordosis. The vertebral heights and alignment is normal. There is loss of L1-L2 disc height. Rest of the disc heights are maintained normal. There is no evidence of disc bulge, herniation or spinal canal stenosis at any of the disc levels. The neural foramina are patent bilaterally. No aggressive lytic or sclerotic process seen. Paravertebral soft tissues are normal. CT/CT lumbar spine wo IV con IMPRESSION: Degenerative disc changes L1-L2 disc level with vacuum disc phenomena. There is no visible acute fracture, dislocation or subluxation seen. Dictated By: Marcus Graham MD Signed By: Electronically signed by Marcus Graham MD 05/11/23 0836 - Vent. Rate: 073 BPM Atrial Rate: 073 BPM P-R Int: 146 ms QRS Dur: 086 ms QT Int: 376 ms P-R-T Axes: 014 -44 074 degrees QTc Int: 414 ms Sinus rhythm with Premature supraventricular complexes Left axis deviation Septal infarct (cited on or before 16-DEC-2020) Inferior infarct , age undetermined Abnormal ECG When compared with ECG of 09-MAY-2022 17:34, Premature supraventricular complexes are now Present Questionable change in initial forces of Anterior leads Non-specific change in ST segment in Anterior leads DD/ 0806 Radiology Impression Discussion of test interpretation with radiology: I have reviewed the radiologist's reading. Independent Historian Clinical information obtained from an independent historian. History obtained from or confirmed by: EMS (EMS provided additional history and confirmed the history provided by the patient.) Chronic Conditions Patient?s care impacted by: Other (COPD) Critical Care Time Critical Care Time Critical Care Time: Yes Total Critical Care Time: 35 Attestation: I spent 35 minutes of Critical Care Time with this patient. This does not include time spent on separately reported billable procedures. Discharge Plan Discharge Clinical Impression: Weakness Patient Disposition: Still a Patient Prescriptions: No Action bisoprolol fumarate 5 mg tablet 0.5 tab PO DAILY albuterol sulfate 90 mcg/actuation HFA aerosol inhaler 2 puff PO QID PRN (Reason: wheezing) albuterol sulfate 5 mg/mL solution for nebulization 0.5 ml inhalation BID PRN (Reason: wheezing) Rx Instructions: mix with 4ml hyper joselito sodium chloride 7 % solution for nebulization 4 ml inhalation BID PRN (Reason: Wheezing) Rx Instructions: mixed with albuterol Trelegy Ellipta 200-62.5-25 mcg blister with device 1 puff inhalation DAILY Rx Instructions: was taking spiriva multivitamin Tablet 1 tab PO DAILY polyethylene glycol 3350 [Miralax] 17 gram Powder In Packet 17 g PO DAILY PRN (Reason: Constipation) aspirin 81 mg Tablet,Delayed Release (Dr/Ec) 81 mg PO DAILY famotidine [Pepcid] 20 mg Tablet 20 mg PO DAILY PRN (Reason: Gastric Reflux) vitamin B complex Tablet 1 tab PO DAILY furosemide [Lasix] 40 mg tablet 40 mg PO DAILY 30 Days Qty: 30 0RF clopidogrel [Plavix] 75 mg tablet 75 mg PO DAILY 30 Days Qty: 30 0RF meclizine 25 mg tablet 25 mg PO TID PRN (Reason: dizziness) Qty: 20 0RF diazepam 2 mg tablet 1 mg PO BID PRN (Reason: anxiety) Qty: 5 0RF Rx Instructions: Only use in case of severe dizziness together with the meclizine tramadol 50 mg tablet 25 mg PO Q8H PRN (Reason: pain) Qty: 14 0RF lidocaine 5 % adhesive patch,medicated 1 patch topical DAILY Qty: 30 0RF Rx Instructions: leave on most painful area for up to 12 hrs
--- NOTE | 2023-05-11 07:12 | PC.NURSE ---
resumed care of patient she is currently awaiting to be brought to CT.
[2023-05-11] MEDS: Cyclobenzaprine HCl 5 MG TABLET PO (07:29)
--- NOTE | 2023-05-11 07:52 | ECG_ITS ---
Test Reason : weakness Blood Pressure : / mmHG Vent. Rate : 073 BPM Atrial Rate : 073 BPM P-R Int : 146 ms QRS Dur : 086 ms QT Int : 376 ms P-R-T Axes : 014 -44 074 degrees QTc Int : 414 ms Artifact in tracing Sinus rhythm with Premature supraventricular complexes Left axis deviation Septal infarct (cited on or before 16-DEC-2020) Inferior infarct , age undetermined Abnormal ECG When compared with ECG of 09-MAY-2022 17:34, Premature supraventricular complexes are now Present Questionable change in initial forces of Anterior leads Referred By: Radha Miguel Electronically Signed By:RULA RUSSO
[2023-05-11 08:26] LABS: MANUAL DIFF FLAG NO
[2023-05-11 08:42] LABS: Basophils Percent Auto 0.4 % (0-2); Eosinophils Absolute Auto 0.1 X10*3/uL (0.0-0.4); Eosinophils Percent Auto 1.4 % (0-4); Hematocrit 32.7 % (37.0-47.0); Hemoglobin 10.5 g/dl (12.0-16.0); Imm Gran Abs Auto 0.04 X10*3/uL (0.00-0.03); Imm Gran Pct Auto 0.4 % (0.0-0.4); Lymphocytes Absolute Auto 1.3 X10*3/uL (1.2-4.9); Lymphocytes Percent Auto 13.4 % (20-40); Mean Corpuscular HGB Conc 32.1 g/dl (31.0-35.0); Mean Corpuscular Hemoglobin 29.2 pg (27.0-33.0); Mean Corpuscular Volume 90.8 fL (80.0-98.0); Mean Platelet Volume 10.1 fL (9.4-12.3); Monocytes Absolute Auto 0.6 X10*3/uL (0.1-1.2); Monocytes Percent Auto 5.9 % (2-11); Neutrophils Absolute Auto 7.6 x10*3/uL (2.0-8.3); Neutrophils Percent Auto 78.5 % (45-73); Platelet Count 239 X10*3/uL (160-400); Red Cell Distribution Width 13.6 % (11.0-16.0); White Blood Count 9.7 X10*3/uL (4.8-10.8)
[2023-05-11 08:48] LABS: Alanine Aminotransferase 18 U/L (0-31); Albumin Level 3.9 g/dL (3.5-5.0); Alkaline Phosphatase 57 U/L (39-117); Anion Gap 13 (12-20); Aspartate Amino Transferase 23 U/L (5-31); Bilirubin Total 0.6 mg/dL (0.0-1.0); Blood Urea Nitrogen 15 mg/dL (9-16); Calcium 9.7 mg/dL (8.4-10.2); Carbon Dioxide 25 mmol/L (22-29); Chloride 104 mmol/L (96-108); Creatinine Clr Calc Pharmacy 36.3; Estimated Glomerular Filt Rate 57; Glucose Random 96 mg/dL (60-115); Magnesium 1.7 mg/dL (1.6-2.6); Potassium 4.2 mmol/L (3.3-5.1); Sodium 138 mmol/L (135-145); Total Protein 7.4 g/dL (6.5-8.0)
[2023-05-11 08:53] LABS: B Type Natriuretic Peptide 462 pg/mL (<100)
[2023-05-11 08:55] LABS: Troponin-I High Sensitivity 17.2 ng/L (<3.5-17.0)
[2023-05-11 10:52] LABS: Troponin-I High Sensitivity 19.3 ng/L (<3.5-17.0)
--- NOTE | 2023-05-11 16:42 | PHA.MEDREC ---
Addendum entered by Felipa Watson 05/11/23 16:52: Patient reports getting meds from [facility] and [facility].Patient reported meds and doses. Original Note: Pharmacy Consult ? Medication Reconciliation Pharmacy has completed the medication reconciliation. Confirmed medications with patient. Patient has stopped taking (on her own) Riluzole, Relyvrio, Radicava Felipa Watson [facility]
--- NOTE | 2023-05-11 17:44 | MHC.EDTECH ---
Put on commode and total bed changed and repositioned
[2023-05-11] MEDS: traMADoL HCL 50 MG TABLET PO (20:50)
--- NOTE | 2023-05-11 21:38 | MHC.CM.ED ---
Pt lives alone in her own home. Is a . Has a dog. Has [employer] from [facility] for light housekeeping and laundry. Covid vax x6. HCP on file. HCP/son Mode Hernandez ([phone]). Pt has been having more issues at home with mobility over past 2 weeks or so., with several falls and having to call EMS for lift assistance. C/O leg pain. Both patient and her son have concerns and have reached out to home care for some help 3 nights a week, but cannot remember the name of the agency. They have not hired anyone yet. Pt has funds: savings, social security, pension. Pt owns her home. CM will fax financial services with a request to call son. Son has questions about paying for LTC. CM explained that most people either private pay, pay down their funds to qualify for MH, or apply for MH, as Medicare and private insurances do not pay for LTC. CM explained Medicare's 3 midnight rule. PT recommending STR. Will refer to acute rehab, If no acceptance for acute rehab, then will place local referrals for STR will private pay. Referrals made to all 3 acute rehabs. Referral faxed to [facility] financial services. Financial Services brochure left at bedside. CM will follow for discharge planning.
--- NOTE | 2023-05-11 22:37 | MHC.EDTECH ---
Patient given inpatient bed
[2023-05-11 22:54] LABS: Appearance Urine Cloudy; Color Urine Yellow; Glucose Urine UA Negative (Negative); Leukocyte Esterase Urine Large (3+) (Negative); Nitrite Urine Positive (Negative); Specific Gravity - Urine 1.015 (1.005-1.025); UMIC TRIGGER UACC YES; Urine Blood Small (1+) (Negative); Urine Ketones 15 mg/dL (Negative); Urine Protein 30 (1+) mg/dL (Neg-Trace)
[2023-05-11 23:11] LABS: Bacteria Urine 4+ (None Seen); Hyaline Casts Urine 0-2 /LPF (0-2); RBC Urine 0-2 /HPF (0-2); Squamous Epithelial Cell Urine 0-2 /HPF (0-2); UACC Culture Trigger YES; WBC Urine >50 /HPF (0-5)
[2023-05-11 23:28] LABS: COVID-19 Test Negative (Negative); IDNOW Serial# 08D9AD1C
[2023-05-12] VITALS (12 sets, daily range): BP systolic 97–123; BP diastolic 53–66; PULSE 72–97; RESP 14–18; TEMP 36.2–36.9; O2SAT 90–95
--- NOTE | 2023-05-12 05:52 | PC.NURSE ---
pt sleeping in stretcher. nad. resp even and unlabored. call torrez within reach.
[2023-05-12] MEDS: Sodium Chloride 3 % Inhalation 15 ML VIAL.NEB 4 ML INHALE ×2 (07:22→19:57)
[2023-05-12] MEDS: Fluticasone/Umeclidinium/Vilanterol 200/62.5/25 BLST.W.DEV 1 PUFF INHALE (07:22)
[2023-05-12] MEDS: Albuterol Sulfate (0.083%) 2.5 MG/3 ML VIAL.NEB INHALE ×2 (07:22→19:47)
--- NOTE | 2023-05-12 08:22 | PC.NURSE ---
assumed care of pt at 0700. pt a&o x4, pleasant, calm, and cooperative. pt up eating breakfast, reporting 8/10 pain to LE. rr even/unlabored. call torrez within pt reach. plan of care ongoing.
[2023-05-12] MEDS: Famotidine 20 MG TABLET PO (09:20)
[2023-05-12] MEDS: cefuroxime axetiL 250 MG TABLET PO ×2 (09:20→21:20)
[2023-05-12] MEDS: Clopidogrel Bisulfate 75 MG TABLET PO (09:20)
[2023-05-12] MEDS: traMADoL HCL 50 MG TABLET PO ×2 (09:20→21:20)
[2023-05-12] MEDS: Furosemide 20 MG TABLET PO (09:21)
--- NOTE | 2023-05-12 09:34 | MHC.CM.ED ---
Addendum entered by Jesica Ram 05/12/23 12:47: [facility] is unable to offer a bed. Referral broadcasted in [facility] for private pay short term rehab at this time. Original Note: Patient remains in ER. [facility] is only acute rehab still following patient. Clinical updates sent via [facility]. Continue to monitor for d/c needs.
--- NOTE | 2023-05-12 10:15 | PC.NURSE ---
called pharmacy for pt's zebeta.
[2023-05-12] MEDS: Bisoprolol Fumarate 5 MG TABLET 2.5 MG PO (10:33)
[2023-05-12] MEDS: Losartan Potassium 25 MG TABLET PO (10:36)
[2023-05-12] MEDS: polyethylene glycoL 3350 17 GM POWD.PACK PO (12:21)
--- NOTE | 2023-05-12 13:03 | PC.NURSE ---
pt eating lunch. tv on. still awaiting miralax effects. purewick in place. call torrez in reach. plan of care ongoing.
--- NOTE | 2023-05-12 13:56 | PC.NURSE ---
Urine incontinent. Bed linen changed. Call torrez in place.
--- NOTE | 2023-05-12 16:15 | PC.NURSE ---
pt sleeping soundly in hospital bed. purewick in place. rr even/unlabored. call torrez within pt reach. plan of care ongoing.
--- NOTE | 2023-05-12 21:04 | MHC.CM.ED ---
Addendum entered by Lina Smyth 05/12/23 21:13: Mode is aware that [facility] will contact him tomorrow to arrange payment and answer any questions. Mode spoke with [employer] [facility] today. CM spoke with family about home care and [facility] for future plan of care. Enc son to call [facility] for more information on [facility] if that is something they all would be interested in in the future. CM contact information given. Original Note: 5 facilities can offer bed. Facilities provided rates. CM shared rates for [place], [facility], [facility] and [facility] with patient and sons. Family would like private room. First choice is [facility]. CM will contact [facility] with request for private room and contact information for son/HCP/POA Mode Parent. Pt is in agreement with plan of care moving forward. CM will follow for discharge planning.
--- NOTE | 2023-05-12 22:00 | PC.NURSE ---
PT alert and oriented, calm cooperative and in no acute distress. PT Used call torrez to request pain meds. PT medicated as per JUN. Plan of care ongoing
[2023-05-13] MEDS: traMADoL HCL 50 MG TABLET PO (03:39)
--- NOTE | 2023-05-13 04:00 | PC.NURSE ---
PT requested and provided medicated for pain. 10/03 pain. Plan of care ongoing.
[2023-05-13 06:00] VITALS: BP 97/55; PULSE 68; RESP 18; TEMP 36.2; O2SAT 93
[2023-05-13] MEDS: Clopidogrel Bisulfate 75 MG TABLET PO (08:09)
[2023-05-13] MEDS: Losartan Potassium 25 MG TABLET PO (08:09)
[2023-05-13] MEDS: cefuroxime axetiL 250 MG TABLET PO (08:09)
[2023-05-13] MEDS: Famotidine 20 MG TABLET PO (08:09)
[2023-05-13] MEDS: Furosemide 40 MG TABLET PO (08:09)
[2023-05-13] MEDS: Bisoprolol Fumarate 5 MG TABLET 2.5 MG PO (08:09)
[2023-05-13] MEDS: Fluticasone/Umeclidinium/Vilanterol 200/62.5/25 BLST.W.DEV 1 PUFF INHALE (08:46)
[2023-05-13] MEDS: Albuterol Sulfate (0.083%) 2.5 MG/3 ML VIAL.NEB INHALE (08:46)
[2023-05-13] MEDS: Sodium Chloride 3 % Inhalation 15 ML VIAL.NEB 4 ML INHALE (08:46)
[2023-05-13 08:50] VITALS: PULSE 70; RESP 18; O2SAT 92
--- NOTE | 2023-05-13 09:14 | MHC.CM.ED ---
Patient remains in ER overflow. Received notification from [facility] that [facility] are able to offer a bed and have already spoken to patient's son, Mode. Jessica WHEELER booked for 11am. Patient, Mode, Melissa SPARKS and Ene QUEEN aware. Continue to monitor for d/c needs.
[2023-05-13 09:18] VITALS: BP 98/50; TEMP 36.6; O2SAT 69
[2023-05-13 09:20] VITALS: BP 98/60
== END 2023-05-13 11:09 | disposition other institution (70) ==
PROVIDERS: Physician Assistant Medical; Emergency Provider Emergency Medicine; PCP Family Medicine
DX: N39.0 Urinary tract infection, site not specified (principal); B96.20 Unspecified Escherichia coli [E. coli] as the cause of diseases classified elsewhere; R53.1 Weakness; Z11.52 Encounter for screening for COVID-19; M54.50 Low back pain, unspecified; R06.02 Shortness of breath; J44.9 Chronic obstructive pulmonary disease, unspecified; Z79.82 Long term (current) use of aspirin; Z79.899 Other long term (current) drug therapy
CPT/HCPCS: 36415; 72131; 72192; 80053; 81001; 83735; 83880; 84484; 85025; 87086; 87088; 87186; 87635; 93005; 94640; 97162; 99285

== ENCOUNTER → 2023-05-11 07:52 | Outpatient (BNV) | payer MEDICARE, SELFPAY | PROVIDERS: Emergency Provider Emergency Medicine; PCP Family Medicine; Visit Provider Internal Medicine | DX: I49.3 Ventricular premature depolarization (principal) | CPT/HCPCS: 93010 ==

== ENCOUNTER 2023-05-14 05:45 | Outpatient (REF) | payer MEDICARE, SELFPAY ==
[2023-05-14 05:49] LABS: MANUAL DIFF FLAG NO
[2023-05-14 05:57] LABS: Basophils Percent Auto 0.6 % (0-2); Eosinophils Absolute Auto 0.2 X10*3/uL (0.0-0.4); Eosinophils Percent Auto 2.6 % (0-4); Hematocrit 30.1 % (37.0-47.0); Hemoglobin 10.1 g/dl (12.0-16.0); Imm Gran Abs Auto 0.02 X10*3/uL (0.00-0.03); Imm Gran Pct Auto 0.3 % (0.0-0.4); Lymphocytes Absolute Auto 1.5 X10*3/uL (1.2-4.9); Lymphocytes Percent Auto 22.1 % (20-40); Mean Corpuscular HGB Conc 33.6 g/dl (31.0-35.0); Mean Corpuscular Hemoglobin 29.9 pg (27.0-33.0); Mean Corpuscular Volume 89.1 fL (80.0-98.0); Mean Platelet Volume 10.5 fL (9.4-12.3); Monocytes Absolute Auto 0.7 X10*3/uL (0.1-1.2); Monocytes Percent Auto 10.6 % (2-11); Neutrophils Absolute Auto 4.4 x10*3/uL (2.0-8.3); Neutrophils Percent Auto 63.8 % (45-73); Platelet Count 234 X10*3/uL (160-400); Red Blood Count 3.38 X10*6/uL (4.20-5.50); Red Cell Distribution Width 13.5 % (11.0-16.0); White Blood Count 6.8 X10*3/uL (4.8-10.8)
[2023-05-14 06:14] LABS: Alanine Aminotransferase 44 U/L (0-31); Albumin Level 3.5 g/dL (3.5-5.0); Alkaline Phosphatase 118 U/L (39-117); Anion Gap 16 (12-20); Aspartate Amino Transferase 46 U/L (5-31); Bilirubin Total 0.5 mg/dL (0.0-1.0); Blood Urea Nitrogen 33 mg/dL (9-16); Calcium 9.4 mg/dL (8.4-10.2); Carbon Dioxide 24 mmol/L (22-29); Chloride 101 mmol/L (96-108); Estimated Glomerular Filt Rate 48; Glucose Random 95 mg/dL (60-115); Potassium 4.1 mmol/L (3.3-5.1); Sodium 137 mmol/L (135-145)
== END 2023-05-14 05:46 | disposition home or self-care (01) ==
LOC: HO.MMNH1L 05:45
PROVIDERS: Visit Provider Family Medicine
DX: I63.9 Cerebral infarction, unspecified (principal); I50.9 Heart failure, unspecified; G45.9 Transient cerebral ischemic attack, unspecified
CPT/HCPCS: 36415; 80053; 85025

== ENCOUNTER 2023-05-17 06:33 | Outpatient (REF) | payer MEDICARE, SELFPAY ==
[2023-05-17 06:10] LABS: MANUAL DIFF FLAG NO
[2023-05-17 06:31] LABS: Anion Gap 15 (12-20); Blood Urea Nitrogen 30 mg/dL (9-16); Calcium 9.6 mg/dL (8.4-10.2); Carbon Dioxide 26 mmol/L (22-29); Chloride 101 mmol/L (96-108); Estimated Glomerular Filt Rate 51; Glucose Random 91 mg/dL (60-115); Sodium 138 mmol/L (135-145)
[2023-05-17 06:59] LABS: Basophils Absolute Auto 0.1 X10*3/uL (0.0-0.2); Basophils Percent Auto 0.8 % (0-2); Eosinophils Absolute Auto 0.2 X10*3/uL (0.0-0.4); Eosinophils Percent Auto 2.3 % (0-4); Hematocrit 32.6 % (37.0-47.0); Hemoglobin 10.4 g/dl (12.0-16.0); Imm Gran Abs Auto 0.03 X10*3/uL (0.00-0.03); Imm Gran Pct Auto 0.4 % (0.0-0.4); Lymphocytes Absolute Auto 2.6 X10*3/uL (1.2-4.9); Lymphocytes Percent Auto 35.4 % (20-40); Mean Corpuscular HGB Conc 31.9 g/dl (31.0-35.0); Mean Corpuscular Hemoglobin 29.4 pg (27.0-33.0); Mean Corpuscular Volume 92.1 fL (80.0-98.0); Mean Platelet Volume 10.5 fL (9.4-12.3); Monocytes Absolute Auto 0.6 X10*3/uL (0.1-1.2); Monocytes Percent Auto 8.8 % (2-11); Neutrophils Absolute Auto 3.8 x10*3/uL (2.0-8.3); Neutrophils Percent Auto 52.3 % (45-73); Platelet Count 354 X10*3/uL (160-400); Red Blood Count 3.54 X10*6/uL (4.20-5.50); Red Cell Distribution Width 13.3 % (11.0-16.0); White Blood Count 7.3 X10*3/uL (4.8-10.8)
== END 2023-05-17 06:34 | disposition home or self-care (01) ==
LOC: HO.MMNH1L 06:33
PROVIDERS: Visit Provider Family Medicine
DX: I50.9 Heart failure, unspecified (principal); G45.9 Transient cerebral ischemic attack, unspecified; I63.9 Cerebral infarction, unspecified
CPT/HCPCS: 36415; 80048; 85025

== ENCOUNTER 2023-05-24 06:32 | Outpatient (REF) | payer MEDICARE, SELFPAY ==
[2023-05-24 06:20] LABS: MANUAL DIFF FLAG NO
[2023-05-24 07:12] LABS: Basophils Absolute Auto 0.1 X10*3/uL (0.0-0.2); Basophils Percent Auto 0.8 % (0-2); Eosinophils Absolute Auto 0.2 X10*3/uL (0.0-0.4); Eosinophils Percent Auto 2.2 % (0-4); Hematocrit 34.6 % (37.0-47.0); Hemoglobin 11.1 g/dl (12.0-16.0); Imm Gran Abs Auto 0.07 X10*3/uL (0.00-0.03); Imm Gran Pct Auto 0.8 % (0.0-0.4); Lymphocytes Percent Auto 35.8 % (20-40); Mean Corpuscular HGB Conc 32.1 g/dl (31.0-35.0); Mean Corpuscular Volume 90.3 fL (80.0-98.0); Mean Platelet Volume 9.8 fL (9.4-12.3); Monocytes Absolute Auto 0.6 X10*3/uL (0.1-1.2); Monocytes Percent Auto 7.2 % (2-11); Neutrophils Absolute Auto 4.5 x10*3/uL (2.0-8.3); Neutrophils Percent Auto 53.2 % (45-73); Platelet Count 425 X10*3/uL (160-400); Red Blood Count 3.83 X10*6/uL (4.20-5.50); Red Cell Distribution Width 13.4 % (11.0-16.0); White Blood Count 8.5 X10*3/uL (4.8-10.8)
[2023-05-24 07:27] LABS: Alanine Aminotransferase 14 U/L (0-31); Albumin Level 3.6 g/dL (3.5-5.0); Alkaline Phosphatase 91 U/L (39-117); Anion Gap 15 (12-20); Aspartate Amino Transferase 16 U/L (5-31); Bilirubin Total 0.4 mg/dL (0.0-1.0); Blood Urea Nitrogen 22 mg/dL (9-16); Calcium 9.6 mg/dL (8.4-10.2); Carbon Dioxide 27 mmol/L (22-29); Chloride 103 mmol/L (96-108); Estimated Glomerular Filt Rate > 60; Glucose Random 92 mg/dL (60-115); Potassium 3.2 mmol/L (3.3-5.1); Sodium 142 mmol/L (135-145); Total Protein 6.8 g/dL (6.5-8.0)
== END 2023-05-24 06:33 | disposition home or self-care (01) ==
LOC: HO.MMNH1L 06:32
PROVIDERS: Visit Provider Family Medicine
DX: I50.9 Heart failure, unspecified (principal); Z86.73 Personal history of transient ischemic attack (TIA), and cerebral infarction without residual deficits
CPT/HCPCS: 36415; 80053; 85025

== ENCOUNTER 2023-05-31 06:32 | Outpatient (REF) | payer MEDICARE, SELFPAY ==
[2023-05-31 06:07] LABS: MANUAL DIFF FLAG NO
[2023-05-31 06:48] LABS: Basophils Absolute Auto 0.1 X10*3/uL (0.0-0.2); Basophils Percent Auto 0.9 % (0-2); Eosinophils Absolute Auto 0.2 X10*3/uL (0.0-0.4); Eosinophils Percent Auto 2.2 % (0-4); Hematocrit 32.5 % (37.0-47.0); Hemoglobin 10.5 g/dl (12.0-16.0); Imm Gran Abs Auto 0.03 X10*3/uL (0.00-0.03); Imm Gran Pct Auto 0.4 % (0.0-0.4); Lymphocytes Absolute Auto 2.3 X10*3/uL (1.2-4.9); Lymphocytes Percent Auto 27.9 % (20-40); Mean Corpuscular HGB Conc 32.3 g/dl (31.0-35.0); Mean Corpuscular Hemoglobin 29.1 pg (27.0-33.0); Mean Platelet Volume 10.5 fL (9.4-12.3); Monocytes Absolute Auto 0.6 X10*3/uL (0.1-1.2); Monocytes Percent Auto 7.4 % (2-11); Neutrophils Percent Auto 61.2 % (45-73); Platelet Count 327 X10*3/uL (160-400); Red Blood Count 3.61 X10*6/uL (4.20-5.50); Red Cell Distribution Width 13.6 % (11.0-16.0); White Blood Count 8.2 X10*3/uL (4.8-10.8)
[2023-05-31 07:02] LABS: Alanine Aminotransferase 13 U/L (0-31); Albumin Level 3.5 g/dL (3.5-5.0); Alkaline Phosphatase 72 U/L (39-117); Anion Gap 16 (12-20); Aspartate Amino Transferase 26 U/L (5-31); Bilirubin Total 0.5 mg/dL (0.0-1.0); Blood Urea Nitrogen 24 mg/dL (9-16); Calcium 9.6 mg/dL (8.4-10.2); Carbon Dioxide 24 mmol/L (22-29); Chloride 103 mmol/L (96-108); Estimated Glomerular Filt Rate > 60; Glucose Random 91 mg/dL (60-115); Potassium 3.8 mmol/L (3.3-5.1); Sodium 139 mmol/L (135-145); Total Protein 6.9 g/dL (6.5-8.0)
== END 2023-05-31 06:33 | disposition home or self-care (01) ==
LOC: HO.MMNH1L 06:32
PROVIDERS: Visit Provider Family Medicine
DX: I50.9 Heart failure, unspecified (principal); Z86.73 Personal history of transient ischemic attack (TIA), and cerebral infarction without residual deficits
CPT/HCPCS: 36415; 80053; 85025

== ENCOUNTER 2023-06-02 06:17 | Outpatient (REF) | payer MEDICARE, SELFPAY ==
[2023-06-02 06:52] LABS: Anion Gap 12 (12-20); Blood Urea Nitrogen 30 mg/dL (9-16); Calcium 9.4 mg/dL (8.4-10.2); Carbon Dioxide 32 mmol/L (22-29); Chloride 100 mmol/L (96-108); Estimated Glomerular Filt Rate > 60; Glucose Random 92 mg/dL (60-115); Potassium 3.9 mmol/L (3.3-5.1); Sodium 140 mmol/L (135-145)
== END 2023-06-02 06:18 | disposition home or self-care (01) ==
LOC: HO.MMNH1L 06:17
PROVIDERS: Visit Provider Family Medicine
DX: I26.99 Other pulmonary embolism without acute cor pulmonale (principal)
CPT/HCPCS: 36415; 80048

== ENCOUNTER 2023-06-07 06:49 | Outpatient (REF) | payer MEDICARE, SELFPAY ==
[2023-06-07 06:08] LABS: MANUAL DIFF FLAG NO
[2023-06-07 07:25] LABS: Basophils Percent Auto 0.4 % (0-2); Eosinophils Absolute Auto 0.2 X10*3/uL (0.0-0.4); Eosinophils Percent Auto 2.4 % (0-4); Hematocrit 30.1 % (37.0-47.0); Hemoglobin 9.8 g/dl (12.0-16.0); Imm Gran Abs Auto 0.03 X10*3/uL (0.00-0.03); Imm Gran Pct Auto 0.4 % (0.0-0.4); Lymphocytes Absolute Auto 2.2 X10*3/uL (1.2-4.9); Lymphocytes Percent Auto 28.2 % (20-40); Mean Corpuscular HGB Conc 32.6 g/dl (31.0-35.0); Mean Corpuscular Hemoglobin 29.3 pg (27.0-33.0); Mean Corpuscular Volume 90.1 fL (80.0-98.0); Mean Platelet Volume 10.4 fL (9.4-12.3); Monocytes Absolute Auto 0.6 X10*3/uL (0.1-1.2); Monocytes Percent Auto 8.1 % (2-11); Neutrophils Absolute Auto 4.6 x10*3/uL (2.0-8.3); Neutrophils Percent Auto 60.5 % (45-73); Platelet Count 301 X10*3/uL (160-400); Red Blood Count 3.34 X10*6/uL (4.20-5.50); Red Cell Distribution Width 13.7 % (11.0-16.0); White Blood Count 7.6 X10*3/uL (4.8-10.8)
[2023-06-07 07:30] LABS: Anion Gap 12 (12-20); Blood Urea Nitrogen 21 mg/dL (9-16); Calcium 9.3 mg/dL (8.4-10.2); Carbon Dioxide 28 mmol/L (22-29); Chloride 102 mmol/L (96-108); Estimated Glomerular Filt Rate > 60; Glucose Random 101 mg/dL (60-115); Potassium 3.2 mmol/L (3.3-5.1); Sodium 139 mmol/L (135-145)
== END 2023-06-07 06:50 | disposition home or self-care (01) ==
LOC: HO.MMNH1L 06:49
PROVIDERS: Visit Provider Family Medicine
DX: I50.9 Heart failure, unspecified (principal); Z86.73 Personal history of transient ischemic attack (TIA), and cerebral infarction without residual deficits
CPT/HCPCS: 36415; 80048; 85025

== ENCOUNTER 2023-07-09 06:03 | Outpatient (REF) | payer MEDICARE, SELFPAY ==
[2023-07-09 06:08] LABS: MANUAL DIFF FLAG NO
[2023-07-09 06:42] LABS: Basophils Percent Auto 0.6 % (0-2); Eosinophils Absolute Auto 0.1 X10*3/uL (0.0-0.4); Eosinophils Percent Auto 2.2 % (0-4); Hematocrit 31.3 % (37.0-47.0); Hemoglobin 10.2 g/dl (12.0-16.0); Imm Gran Abs Auto 0.01 X10*3/uL (0.00-0.03); Imm Gran Pct Auto 0.2 % (0.0-0.4); Lymphocytes Percent Auto 36.6 % (20-40); Mean Corpuscular HGB Conc 32.6 g/dl (31.0-35.0); Mean Corpuscular Volume 88.9 fL (80.0-98.0); Mean Platelet Volume 10.3 fL (9.4-12.3); Monocytes Absolute Auto 0.5 X10*3/uL (0.1-1.2); Monocytes Percent Auto 10.1 % (2-11); Neutrophils Absolute Auto 2.7 x10*3/uL (2.0-8.3); Neutrophils Percent Auto 50.3 % (45-73); Platelet Count 300 X10*3/uL (160-400); Red Blood Count 3.52 X10*6/uL (4.20-5.50); Red Cell Distribution Width 14.1 % (11.0-16.0); White Blood Count 5.4 X10*3/uL (4.8-10.8)
[2023-07-09 06:54] LABS: Alanine Aminotransferase 12 U/L (0-31); Albumin Level 3.4 g/dL (3.5-5.0); Alkaline Phosphatase 56 U/L (39-117); Anion Gap 15 (12-20); Aspartate Amino Transferase 18 U/L (5-31); Bilirubin Total 0.4 mg/dL (0.0-1.0); Blood Urea Nitrogen 19 mg/dL (9-16); Calcium 9.4 mg/dL (8.4-10.2); Carbon Dioxide 27 mmol/L (22-29); Chloride 103 mmol/L (96-108); Estimated Glomerular Filt Rate > 60; Glucose Random 95 mg/dL (60-115); Potassium 3.1 mmol/L (3.3-5.1); Sodium 142 mmol/L (135-145); Total Protein 6.5 g/dL (6.5-8.0)
== END 2023-07-09 06:04 | disposition home or self-care (01) ==
LOC: HO.MMNH2L 06:03
PROVIDERS: Visit Provider Family Medicine
DX: G12.21 Amyotrophic lateral sclerosis (principal); I63.9 Cerebral infarction, unspecified
CPT/HCPCS: 36415; 80053; 85025

== ENCOUNTER 2023-07-12 07:17 | Outpatient (REF) | payer MEDICARE, SELFPAY ==
[2023-07-12 06:35] LABS: MANUAL DIFF FLAG NO
[2023-07-12 07:12] LABS: Basophils Percent Auto 0.7 % (0-2); Eosinophils Absolute Auto 0.2 X10*3/uL (0.0-0.4); Eosinophils Percent Auto 2.7 % (0-4); Hematocrit 30.6 % (37.0-47.0); Hemoglobin 9.9 g/dl (12.0-16.0); Imm Gran Abs Auto 0.02 X10*3/uL (0.00-0.03); Imm Gran Pct Auto 0.4 % (0.0-0.4); Lymphocytes Absolute Auto 1.9 X10*3/uL (1.2-4.9); Lymphocytes Percent Auto 34.2 % (20-40); Mean Corpuscular HGB Conc 32.4 g/dl (31.0-35.0); Mean Corpuscular Hemoglobin 29.1 pg (27.0-33.0); Mean Platelet Volume 10.4 fL (9.4-12.3); Monocytes Absolute Auto 0.5 X10*3/uL (0.1-1.2); Platelet Count 293 X10*3/uL (160-400); White Blood Count 5.6 X10*3/uL (4.8-10.8)
[2023-07-12 07:36] LABS: Anion Gap 15 (12-20); Blood Urea Nitrogen 17 mg/dL (9-16); Calcium 9.1 mg/dL (8.4-10.2); Carbon Dioxide 24 mmol/L (22-29); Chloride 105 mmol/L (96-108); Estimated Glomerular Filt Rate > 60; Glucose Random 91 mg/dL (60-115); Sodium 141 mmol/L (135-145)
[2023-07-12 07:45] LABS: Vitamin D 25-OH Total 29.6 ng/mL (>30)
[2023-07-12 07:54] LABS: Vitamin B12 401 pg/mL (200-900)
[2023-07-12 08:23] LABS: Potassium 2.7 mmol/L (3.3-5.1)
== END 2023-07-12 07:18 | disposition home or self-care (01) ==
LOC: HO.MMNH2L 07:17
PROVIDERS: Visit Provider Family Medicine
DX: G12.21 Amyotrophic lateral sclerosis (principal); I63.9 Cerebral infarction, unspecified
CPT/HCPCS: 36415; 80048; 82306; 82607; 85025

== ENCOUNTER 2023-07-18 14:36 | Emergency (ER) | payer MEDICARE, SELFPAY ==
--- NOTE | ~2023-07-18 | XR_ITS ---
EXAMINATION: XR CHEST CLINICAL INFORMATION: Shortness of breath COMPARISON: 05/09/2022 TECHNIQUE: 2 views of the chest were obtained. FINDINGS: The lungs are hypoinflated. Redemonstrated volume loss in the left hemithorax with streaky opacities at the base favored to represent atelectasis. No additional consolidation bilaterally. No evidence of pneumothorax, significant pleural effusion, or overt pulmonary edema. Cardiac size is within normal limits. Calcification is present at the aortic arch. Chronic appearing deformity of the posterior right seventh rib. XR/XR chest 2V IMPRESSION: Redemonstrated left hemithorax volume loss with streaky basilar opacities favored to represent atelectasis. Overall appearance is similar to 05/09/2022.
[2023-07-18 14:43] VITALS: BP 106/58; BP 126/64; PULSE 77; PULSE 78; RESP 20; TEMP 36.6; O2SAT 95; O2SAT 96; BMI 21.1
[2023-07-18 15:16] VITALS: BP 126/64; PULSE 74; RESP 17; TEMP 37.2; O2SAT 94
--- NOTE | 2023-07-18 15:18 | PC.NURSE ---
Pt coming from home via EMS, pt reports SOB, cough (unable to clear phlegm), chills, diarrhea and general malaise since yesterday. Pt reports she called for EMS today because of the SOB and felt like she needed O2 (no home O2). Pt had recent d/c from [facility] yesterday for lower leg pain. Pt is alert and oriented, breathing even and unlabored, skin WNL. +congestion and cough noted. Pt placed on cardiac montior, NSR. RA SPO2 noted to be 93-96%. Pt denies any CP or ABD pain. Pt reports the SOB worsens on exertion. Pt also reports chronic lower back pain, /.
--- NOTE | 2023-07-18 15:47 | ECG_ITS ---
Test Reason : sob Blood Pressure : / mmHG Vent. Rate : 081 BPM Atrial Rate : 081 BPM P-R Int : 154 ms QRS Dur : 088 ms QT Int : 374 ms P-R-T Axes : 119 -39 106 degrees QTc Int : 434 ms Normal sinus rhythm Left axis deviation Inferior infarct (cited on or before 09-MAY-2022) Anteroseptal infarct (cited on or before 16-DEC-2020) Abnormal ECG When compared with ECG of 11-MAY-2023 08:06, Premature supraventricular complexes are no longer Present Questionable change in initial forces of Anterior leads Referred By: Radha Miguel Electronically Signed By:Yimi Guerrero
--- NOTE | 2023-07-18 16:14 | ED_ITS ---
HPI - SOB/Dyspnea General Chief Complaint: Dyspnea Stated Complaint: weakness and SOB, warm to touch, treated for pneu Time Seen by Provider: 07/18/23 16:01 Source: patient and EMS Mode of arrival: EMS Limitations: no limitations History of Present Illness HPI Narrative: Patient comes to the emergency room complaining of shortness of breath and cough starting today. Also, patient reports 1 episode of diarrhea this morning. Patient denies chest pain, denies fever or chills. Patient states that she was recently discharged from [facility] Related Data Home Medications Medication Instructions Recorded Confirmed bisoprolol fumarate 5 mg tablet 0.5 tab PO DAILY 12/16/20 05/11/23 famotidine 20 mg tablet (Pepcid) 20 mg PO DAILY Gastric Reflux 12/16/20 05/11/23 fluticasone fur. 200 mcg-umeclid 1 puff inhalation DAILY 12/16/20 05/11/23 62.5 mcg-vilant 25 mcg inhalat.powder (Trelegy Ellipta) sodium chloride 7 % for 4 ml inhalation BID Wheezing 12/16/20 05/11/23 nebulization albuterol sulfate 2.5 mg/3 mL 2.5 mg inhalation BID 05/11/23 05/11/23 (0.083 %) solution for nebulization furosemide 20 mg tablet 20 mg PO Q OTHER DAY 05/11/23 05/11/23 furosemide 40 mg tablet 40 mg PO Q OTHER DAY 05/11/23 05/11/23 losartan 25 mg tablet 25 mg PO DAILY 05/11/23 05/11/23 Previous Rx's Medication Instructions Recorded clopidogrel 75 mg tablet (Plavix) 75 mg PO DAILY 30 days #30 tabs 12/18/20 Allergies Allergy/AdvReac Type Severity Reaction Status Date / Time codeine Allergy Unknown Verified 05/11/23 06:25 fish derived [fish] Allergy Nausea and Verified 05/11/23 06:25 Vomiting Sulfa (Sulfonamide Allergy Unknown Verified 05/11/23 06:25 Antibiotics) tetanus and diphtheria Allergy Unknown Verified 05/11/23 06:25 toxoids Review of Systems 2 Review of Systems: Constitutional : No Weight loss, No Fever, No Chills, No Night Sweats, No Fatigue, No Malaise ENT/Mouth : No Hearing loss, No Ear Pain, No Nasal Congestion, No Sinus Pain, No Hoarseness, No sore throat, No Rhinorrhea, No Swallowing Difficulty Eyes: No Eye Pain, No Swelling, No Redness, No Foreign Body, No Discharge, No Vision Changes Cardiovascular : No Chest Pain, No SOB, No Dyspnea on Exertion, No Orthopnea, No Edema, No Palpitations Respiratory : Complaining of cough, shortness of breath, no wheezing Gastrointestinal : No Nausea, No Vomiting, No Diarrhea, No Constipation, No abdominal Pain, No Hematochezia, No Melena Genitourinary : no irregular bleeding, No Dysuria, No Urinary Frequency, No Hematuria, No Urinary Incontinence, No Urgency, No Flank Pain, No Urinary Flow Changes, No Hesitancy Musculoskeletal : No joint pain, No Myalgias, No Joint Swelling Skin : No Skin Lesions, No rash Neuro : No Weakness, No Numbness, No Paresthesias, No Loss of Consciousness, No Dizziness, No Headache Psych : No Anxiety/Panic, No Depression, No SI/HI/AH/VH, No Social Issues, Heme/Lymph: No Bruising, No Bleeding,No Lymphadenopathy Endocrine : No Polyuria, No Polydipsia, No Temperature Intolerance [facility] Past Medical History Medical History (Updated 07/18/23 @ 19:50 by Christen Traore MD) Cici Gehrig disease Shortness of breath Pleural effusion CVA (cerebral vascular accident) Knee abrasion Stroke due to embolism Pneumonia Heart failure TIA (transient ischemic attack) Non-Hodgkin lymphoma in remission COPD (chronic obstructive pulmonary disease) Surgical History Total knee replacement status Social History Social History Housing: House Do you presently have visiting nurse or other home services: No Patient Tobacco Use Status: Former Tobacco user Tobacco use type: Cigarette Smoked in Last 30 Days: No Use of substances other than those prescribed or required for medical reasons: No Advance Directives: No Advance Directives Information Provided: No service: No Current occupational status: retired Physical Exam 2 Vital Signs: Vital Signs: Last Vital Signs Temp 97.9 F 07/18/23 17:24 Pulse 74 07/18/23 17:24 Resp 25 H 07/18/23 17:24 BP 106/55 L 07/18/23 17:24 Pulse Ox 94 07/18/23 17:24 O2 Del Method Room Air 07/18/23 17:24 BMI result Body Mass Index 21.1 Const: Other: Appearance: Alert. Oriented X3. No acute distress. Eyes: Pupils equal, round and reactive to light. ENT: Pharynx normal. Neck: Normal inspection. Neck supple. No lymph nodes noted. No crepitus CVS: Normal heart rate and rhythm. Pulses normal. Normal S1 and S2 Respiratory: No respiratory distress. Breath sounds normal. No Wheezing. No rales Abdomen: Soft and nontender. No rigidity. No distention. Skin: Skin warm and dry. Normal skin color. Normal skin turgor. Extremities: No lower extremity edema. No Lacerations. No Rash Neuro: Oriented X 3. No motor deficit. No sensory deficit. Moving all extremities. Slow speaking CN 2 through 12 grossly intact Psych: calm, cooperative, normal affect Course Course Course Narrative: -patient's vitals normal -all of patient's labs and imaging pending Medical Decision Making Medical Decision Making [facility] Narrative: -my interpretation of labs: Normal hematology. Normal chemistry, troponin 1. 17.3, troponin 2. 18.0. Patient states that she has no chest pain or shortness of breath. BNP 243, at baseline. -my interpretation of EKG: Normal sinus rhythm, heart rate 81, no ST segment depression or elevation, no T-wave inversion, QTC 434 -my interpretation of chest x-ray: No infiltrates. Per Radiology, no changes since April of 2022 -patient is not ambulatory, oxygen saturation stable between 94 and 95%. -patient states that she feels well and would like to be discharged home. Differential Diagnosis Differential Diagnoses: The differential diagnosis associated with the presentation includes Admission/Observation Consideration of admission/observation: Escalation of care including admission/observation considered (When sitting patient's complaints, presentation, admission was not sure) Lab Data [facility] Lab Attestation statement: I reviewed the patient's lab results. 07/18/23 16:21 07/18/23 16:21 Labs: Lab Results 07/18/23 07/18/23 07/18/23 Range/Units 15:39 16:21 16:24 WBC 5.7 (4.8-10.8) X10*3/uL RBC 3.86 L (4.20-5.50) X10*6/uL Hgb 11.4 L (12.0-16.0) g/dl Hct 34.4 L (37.0-47.0) % MCV 89.1 (80.0-98.0) fL MCH 29.5 (27.0-33.0) pg MCHC 33.1 (31.0-35.0) g/dl RDW 14.2 (11.0-16.0) % Plt Count 257 (160-400) X10*3/uL MPV 10.3 (9.4-12.3) fL Immature Gran % (Auto) 0.5 H (0.0-0.4) % Neut % (Auto) 68.3 (45-73) % Lymph % (Auto) 21.8 (20-40) % Clinch % (Auto) 8.9 (2-11) % Eos % (Auto) 0.2 (0-4) % Baso % (Auto) 0.3 (0-2) % Lymph # (Auto) 1.3 (1.2-4.9) X10*3/uL Clinch # (Auto) 0.5 (0.1-1.2) X10*3/uL Eos # (Auto) 0.0 (0.0-0.4) X10*3/uL Baso # (Auto) 0.0 (0.0-0.2) X10*3/uL Abs Immat Gran (auto) 0.03 (0.00-0.03) X10*3/uL Absolute Neuts (auto) 3.9 (2.0-8.3) x10*3/uL Absolute Nucleated RBC 0.000 (0.0-0.012) X10*3/uL Nucleated RBC % (auto) 0.0 (0.0-0.2) /100WBC VBG pH 7.44 H (7.32-7.43) VBG pCO2 48 mmHg VBG pO2 32 mmHg VBG HCO3 33 H (22-26) mmol/L VBG O2 Saturation 42.0 % VBG Base Excess 7.9 mmol/L Sodium 141 (135-145) mmol/L Potassium 4.1 D (3.3-5.1) mmol/L Chloride 101 (96-108) mmol/L Carbon Dioxide 27 (22-29) mmol/L Anion Gap 17 (12-20) BUN 21 H (9-16) mg/dL Creatinine 0.88 (0.5-1.4) mg/dL Estim Creat Clear Calc 34.2 Estimated GFR > 60 Random Glucose 110 (60-115) mg/dL Calcium 9.7 D (8.4-10.2) mg/dL Magnesium 1.6 (1.6-2.6) mg/dL Total Bilirubin 0.5 (0.0-1.0) mg/dL AST 29 (5-31) U/L ALT 14 (0-31) U/L Alkaline Phosphatase 67 (39-117) U/L Troponin I High Sens 17.3 H (<3.5-17.0) ng/L B-Natriuretic Peptide 243 H (<100) pg/mL Total Protein 8.1 H (6.5-8.0) g/dL Albumin 4.1 (3.5-5.0) g/dL Influenza Type A (PCR) NEGATIVE (Negative) Influenza Type B (PCR) NEGATIVE (Negative) RSV RNA Qual (PCR) NEGATIVE (Negative) SARS-CoV-2 RNA (RT-PCR) NEGATIVE (Negative) 07/18/23 Range/Units 19:03 WBC (4.8-10.8) X10*3/uL RBC (4.20-5.50) X10*6/uL Hgb (12.0-16.0) g/dl Hct (37.0-47.0) % MCV (80.0-98.0) fL MCH (27.0-33.0) pg MCHC (31.0-35.0) g/dl RDW (11.0-16.0) % Plt Count (160-400) X10*3/uL MPV (9.4-12.3) fL Immature Gran % (Auto) (0.0-0.4) % Neut % (Auto) (45-73) % Lymph % (Auto) (20-40) % Clinch % (Auto) (2-11) % Eos % (Auto) (0-4) % Baso % (Auto) (0-2) % Lymph # (Auto) (1.2-4.9) X10*3/uL Clinch # (Auto) (0.1-1.2) X10*3/uL Eos # (Auto) (0.0-0.4) X10*3/uL Baso # (Auto) (0.0-0.2) X10*3/uL Abs Immat Gran (auto) (0.00-0.03) X10*3/uL Absolute Neuts (auto) (2.0-8.3) x10*3/uL Absolute Nucleated RBC (0.0-0.012) X10*3/uL Nucleated RBC % (auto) (0.0-0.2) /100WBC VBG pH (7.32-7.43) VBG pCO2 mmHg VBG pO2 mmHg VBG HCO3 (22-26) mmol/L VBG O2 Saturation % VBG Base Excess mmol/L Sodium (135-145) mmol/L Potassium (3.3-5.1) mmol/L Chloride (96-108) mmol/L Carbon Dioxide (22-29) mmol/L Anion Gap (12-20) BUN (9-16) mg/dL Creatinine (0.5-1.4) mg/dL Estim Creat Clear Calc Estimated GFR Random Glucose (60-115) mg/dL Calcium (8.4-10.2) mg/dL Magnesium (1.6-2.6) mg/dL Total Bilirubin (0.0-1.0) mg/dL AST (5-31) U/L ALT (0-31) U/L Alkaline Phosphatase (39-117) U/L Troponin I High Sens 18.0 H (<3.5-17.0) ng/L B-Natriuretic Peptide (<100) pg/mL Total Protein (6.5-8.0) g/dL Albumin (3.5-5.0) g/dL Influenza Type A (PCR) (Negative) Influenza Type B (PCR) (Negative) RSV RNA Qual (PCR) (Negative) SARS-CoV-2 RNA (RT-PCR) (Negative) Independent Interpretation I performed an independent interpretation of an: Plain X-Ray Radiology Impression Discussion of test interpretation with radiology: I have reviewed the radiologist's reading. Radiologist Impression: The lungs are hypoinflated. Redemonstrated volume loss in the left hemithorax with streaky opacities at the base favored to represent atelectasis. No additional consolidation bilaterally. No evidence of pneumothorax, significant pleural effusion, or overt pulmonary edema. Cardiac size is within normal limits. Calcification is present at the aortic arch. Chronic appearing deformity of the posterior right seventh rib. XR/XR chest 2V IMPRESSION: Redemonstrated left hemithorax volume loss with streaky basilar opacities favored to represent atelectasis. Overall appearance is similar to 05/09/2022. Critical Care Time Critical Care Time Critical Care Time: Yes Total Critical Care Time: 35 Attestation: I have personally provided critical care time. Time includes review of lab data, radiology results, discussion with consultants, and monitoring for potential decompensation. Intervention performed as documented. Discharge Plan Discharge Clinical Impression: Acute dyspnea, Anxiety Patient Disposition: Home, Self-Care Instructions: Dyspnea (ED) Additional Instructions: Please follow-up with your primary care physician tomorrow. If you have any worsening or new symptoms, please return to the emergency room or call 911 Prescriptions: No Action bisoprolol fumarate 5 mg tablet 0.5 tab PO DAILY sodium chloride 7 % solution for nebulization 4 ml inhalation BID Rx Instructions: mixed with albuterol Trelegy Ellipta 200-62.5-25 mcg blister with device 1 puff inhalation DAILY Rx Instructions: was taking spiriva famotidine [Pepcid] 20 mg Tablet 20 mg PO DAILY clopidogrel [Plavix] 75 mg tablet 75 mg PO DAILY 30 Days Qty: 30 0RF albuterol sulfate 2.5 mg /3 mL (0.083 %) solution for nebulization 2.5 mg inhalation BID losartan 25 mg Tablet 25 mg PO DAILY furosemide 40 mg Tablet 40 mg PO Q OTHER DAY furosemide 20 mg Tablet 20 mg PO Q OTHER DAY
[2023-07-18 16:26] LABS: MANUAL DIFF FLAG NO
[2023-07-18 16:28] LABS: Basophils Percent Auto 0.3 % (0-2); Eosinophils Percent Auto 0.2 % (0-4); Hematocrit 34.4 % (37.0-47.0); Hemoglobin 11.4 g/dl (12.0-16.0); Imm Gran Abs Auto 0.03 X10*3/uL (0.00-0.03); Imm Gran Pct Auto 0.5 % (0.0-0.4); Lymphocytes Absolute Auto 1.3 X10*3/uL (1.2-4.9); Lymphocytes Percent Auto 21.8 % (20-40); Mean Corpuscular HGB Conc 33.1 g/dl (31.0-35.0); Mean Corpuscular Hemoglobin 29.5 pg (27.0-33.0); Mean Corpuscular Volume 89.1 fL (80.0-98.0); Mean Platelet Volume 10.3 fL (9.4-12.3); Monocytes Absolute Auto 0.5 X10*3/uL (0.1-1.2); Monocytes Percent Auto 8.9 % (2-11); Neutrophils Absolute Auto 3.9 x10*3/uL (2.0-8.3); Neutrophils Percent Auto 68.3 % (45-73); Platelet Count 257 X10*3/uL (160-400); Red Blood Count 3.86 X10*6/uL (4.20-5.50); Red Cell Distribution Width 14.2 % (11.0-16.0); White Blood Count 5.7 X10*3/uL (4.8-10.8)
[2023-07-18 16:32] LABS: VBG Base Excess 7.9 mmol/L; VBG HCO3 33 mmol/L (22-26); VBG pCO2 48 mmHg; VBG pH 7.44 (7.32-7.43); VBG pO2 32 mmHg
[2023-07-18 16:35] LABS: Influenza A PCR NEGATIVE (Negative); Influenza B PCR NEGATIVE (Negative); Resp Syncy Virus RNA Qual PCR NEGATIVE (Negative); SARS COV2 PCR INHOUSE NEGATIVE (Negative)
[2023-07-18 16:36] LABS: Venous Blood Gas Refer to POC result
[2023-07-18 16:43] LABS: Alanine Aminotransferase 14 U/L (0-31); Albumin Level 4.1 g/dL (3.5-5.0); Alkaline Phosphatase 67 U/L (39-117); Anion Gap 17 (12-20); Aspartate Amino Transferase 29 U/L (5-31); Bilirubin Total 0.5 mg/dL (0.0-1.0); Blood Urea Nitrogen 21 mg/dL (9-16); Calcium 9.7 mg/dL (8.4-10.2); Carbon Dioxide 27 mmol/L (22-29); Chloride 101 mmol/L (96-108); Creatinine Clr Calc Pharmacy 34.2; Estimated Glomerular Filt Rate > 60; Glucose Random 110 mg/dL (60-115); Magnesium 1.6 mg/dL (1.6-2.6); Potassium 4.1 mmol/L (3.3-5.1); Sodium 141 mmol/L (135-145); Total Protein 8.1 g/dL (6.5-8.0)
[2023-07-18 16:48] LABS: B Type Natriuretic Peptide 243 pg/mL (<100)
[2023-07-18 16:49] LABS: Troponin-I High Sensitivity 17.3 ng/L (<3.5-17.0)
[2023-07-18 17:24] VITALS: BP 106/55; PULSE 74; RESP 25; TEMP 36.6; O2SAT 94
--- NOTE | 2023-07-18 19:09 | PC.NURSE ---
pt axox4 son at bedside. pt reports cp/sob resolved resp even and unlabored. 96% on RA. pt states is not ambulatory at baseline uses scooter to get around the house; unable to complete ambulatory o2. Dr. Traore aware. repeat trop drawn; awaiting results. call torrez within reach.
[2023-07-18 20:21] VITALS: BP 120/62; PULSE 74; RESP 18; TEMP 36.8; O2SAT 94
[2023-07-18 20:22] VITALS: BP 120/62; PULSE 74; RESP 18; TEMP 36.8; O2SAT 94
== END 2023-07-18 20:24 | disposition home or self-care (01) ==
PROVIDERS: Physician Assistant Medical; Emergency Provider Emergency Medicine
DX: R06.00 Dyspnea, unspecified (principal); F41.9 Anxiety disorder, unspecified; J44.9 Chronic obstructive pulmonary disease, unspecified; Z86.73 Personal history of transient ischemic attack (TIA), and cerebral infarction without residual deficits; Z11.52 Encounter for screening for COVID-19; Z20.828 Contact with and (suspected) exposure to other viral communicable diseases
CPT/HCPCS: 0241U; 36415; 71046; 80053; 82803; 83735; 83880; 84484; 85025; 93005; 99284

== ENCOUNTER → 2023-07-18 15:47 | Outpatient (BNV) | payer MEDICARE, SELFPAY | PROVIDERS: Emergency Provider Emergency Medicine; Visit Provider Internal Medicine Cardiovascular Disease | DX: R94.31 Abnormal electrocardiogram [ECG] [EKG] (principal) | CPT/HCPCS: 93010 ==

== ENCOUNTER 2023-08-31 07:49 | Emergency (ER) | payer MEDICARE, SELFPAY ==
--- NOTE | ~2023-08-31 | XR_ITS ---
EXAMINATION: XR FINGER, RIGHT XR WRIST, RIGHT CLINICAL INFORMATION: Right thumb tenderness with ecchymosis, scaphoid tenderness COMPARISON: None available. TECHNIQUE: 3 views of the right thumb. 4 views of the wrist FINDINGS: Degenerative changes are present at the interphalangeal joint of the thumb as well as at the CMC joint of the thumb and second digit. No significant bone, joint or soft tissue abnormality is seen involving the wrist. No chondrocalcinosis, fractures or significant joint space narrowing. XR/XR finger RT min 2V IMPRESSION: Degenerative changes as described above. No evidence of an acute osseous injury.
--- NOTE | ~2023-08-31 | XR_ITS ---
EXAMINATION: XR FINGER, RIGHT XR WRIST, RIGHT CLINICAL INFORMATION: Right thumb tenderness with ecchymosis, scaphoid tenderness COMPARISON: None available. TECHNIQUE: 3 views of the right thumb. 4 views of the wrist FINDINGS: Degenerative changes are present at the interphalangeal joint of the thumb as well as at the CMC joint of the thumb and second digit. No significant bone, joint or soft tissue abnormality is seen involving the wrist. No chondrocalcinosis, fractures or significant joint space narrowing. XR/XR wrist RT w scaphoid IMPRESSION: Degenerative changes as described above. No evidence of an acute osseous injury.
[2023-08-31 07:55] VITALS: BP 135/79; BP 148/84; PULSE 87; PULSE 89; RESP 16; TEMP 36.7; O2SAT 94; O2SAT 96; BMI 22.2
--- NOTE | 2023-08-31 08:04 | PC.NURSE ---
a&ox4. vss and up to date. pt presents to the ED from home w/ 02/02 right hand/wrist pain. 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 pain increased past two days. denies numbness/tingling. cms intact. extremity hot to the touch. erythema/swelling noted. tender w/ palpation. unable to move fingers. labs obtained/sent to lab by tech. pt waiting to be seen by ED provider. plan of care ongoing. call torrez placed within reach.
[2023-08-31 08:10] LABS: MANUAL DIFF FLAG NO
--- OUTSIDE RECORDS SUMMARY | 2023-08-31 08:12 | XMS_ITS | Continuity of Care Document ---
Author Organization [facility] Address [address] [place] [address]- Care Team Providers Care Independent Sales Representative Name Role Phone Tray BROWN, Robert Anthony Primary Care Physician Encounter [facility] Date(s): 07/08/20 - 08/07/20 [facility] [address] [place] [id number] Allergies, Adverse Reactions, Alerts Substance Reaction Severity Status codeine Active tetanus toxoid Active sulfa drugs Active Immunizations Given and Recorded Vaccine Date Status Refusal Reason SARS-CoV-2 (COVID-19) mRNA BNT-162b2 vac 06/24/20 Given influenza virus vaccine, inactivated 1 02/10/18 Re corded influenza virus vaccine, inactivated 2 03/29/17 Re corded influenza virus vaccine, inactivated 3 02/23/16 Re corded influenza virus vaccine, inactivated 4 03/14/15 Re corded influenza virus vaccine, inactivated 5 03/08/14 Gi tj influenza virus vaccine, inactivated 6 02/09/12 Re corded pneumococcal 13-valent vaccine 7 07/29/15 Recorded pneumococcal 13-valent vaccine 8 08/31/12 Recorded pneumococcal 23-valent vaccine 9 06/20/12 Recorded 1Location History: [facility] 2Location History: [facility] 3Result Comment: [06/19/2016] ABBY 4Result Comment: [06/19/2016] abby 5Early/Late Reason: Other : 6Result Comment: [06/19/2016] ABBY 7Result Comment: [06/19/2016] abby 8Result Comment: [06/19/2016] [facility] 9Result Comment: [06/19/2016] ABBY Medications albuterol 0.083% inhalation solution 3 mL = 2.5 mg, Inhalation, Every 6 hours, use Acapella device after every treatment, # 120 each, 3 Refills, Maintenance, 06/27/20 15:48:00 EST, Solution, [facility] #[id number], 151, cm, 02/05/20 7:35:00 EDT, Height Start Date: 06/27/20 Status: Ordered albuterol 5 mg/mL (0.5%) inhalation solution 0.5 mL = 2.5 mg, Inhalation, 2 times a day, PRN for wheezing, dilute in 4 mL of Hyper-Don and take twice a day, # 120 each, 5 Refills, Maintenance, 08/07/20 9:57:00 EDT, Solution, [facility] #[id number], J47.0 bronchiectasis, 151, cm, 02/05/20 7:... Start Date: 08/07/20 Stop Date: 02/03/21 Status: Ordered amoxicillin 500 mg oral capsule 4 capsule = 2,000 mg, By Mouth, Once, take 4 capsules prior to dental procedure, # 4 capsule, 0 Refills, Soft Stop, 12/27/19 12:56:00 EDT, [facility] #[id number], 151, cm, 11/22/19 11:48:00 EDT,Height, 65.4, kg, 05/02/18 11:04:00 EST, Dry Weight Start Date: 12/27/19 Status: Ordered aspirin 81 mg oral tablet, chewable 81 mg, 1, tablet, By Mouth, Daily, # 90 tablet, Refills 3, Tot. Refills 3, Maintenance, 02/05/20 7:58:00 EDT, Route to Pharmacy Electronically, [facility] #[id number], 151, cm, 02/05/20 7:35:00 EDT, Height, 65.4, kg, 05/02/18 11:04:00 EST, Dry We... Start Date: 02/05/20 Status: Ordered Hyper-Don 7% inhalation solution 4 mL = 0.28 Gm, Neb, 2 times a day, take with 0.5ml = 2.5 mg albuterol (add hypersal 4ml to 0.5ml albuterol) twice a day, # 240 mL, 11 Refills, Maintenance, 08/07/20 9:58:00 EDT, [facility]#[id number], J47.0 bronchiectasis, 4 mL Neb 2 times a da... Start Date: 08/07/20 Stop Date: 08/02/21 Status: Ordered meloxicam 7.5 mg oral tablet 1 tablet, By Mouth, Daily, # 90 tablet, 0 Refills, Maintenance, 07/01/20 12:15:00 EST, [facility] #[id number], 151, cm, 02/05/20 7:35:00 EDT, Height Start Date: 07/01/20 Status: Ordered MiraLax Powder 1 pack/packet = 17 Gm, By Mouth, PRN Constipation, 0 Refills, Maintenance, 02/11/17 8:35:49 EDT, Powder Start Date: 02/11/17 Status: Ordered Multivitamin Daily, 0 Refills, Maintenance, 10/08/16 7:39:15 Start Date: 10/08/16 Status: Ordered Nebulizer/Compressor See Instructions, # 1 each, Refills 11, Tot. Refills 11, Maintenance, E0570 Nebulizer A7003 Neb Disp Set A7014 Neb non-Disp Filter A7005 Neb Non-Disp set A7015 Aerosol Mask A7013 Neb Disp Filter length of need lifetime 99 months DX COPD J44.9, ... Start Date: 06/27/20 Status: Ordered Pepcid AC over the counter Pepcid AC over the counter, Refills 0, Maintenance, 10/08/16 7:39:59, Compound Start Date: 10/08/16 Status: Ordered ProAir HFA 90 mcg/inh inhalation aerosol with adapter 2, puffs, Inhalation, 4 times a day, PRN, # 1 each, Refills 6, Tot. Refills 6, Maintenance, 05/17/19 14:49:00 EST, Route to Pharmacy Electronically, [id number], [facility] #[id number], 151, cm, 05/17/19 14:23:00 EST, Hei... Start Date: 05/17/19 Status: Ordered Spiriva Respimat 60 ACT 2.5 mcg/inh inhalation aerosol 2 puffs, Inhalation, Daily, # 3 each, 3 Refills, Maintenance, 11/22/19 12:33:00 EDT, [facility], 151, cm, 11/22/19 11:48:00 EDT, Height, 65.4, kg, 05/02/18 11:04:00 EST, Dry Weight Start Date: 11/22/19 Status: Ordered spironolactone 25 mg oral tablet 12.5 mg, 0.5, tablet, By Mouth, Daily, # 15 tablet, Refills 11, Tot. Refills 11, Maintenance, 05/07/20 13:57:00 EST, Route to Pharmacy Electronically, [facility] #[id number], 151, cm, 02/05/20 7:35:00 EDT, Height Start Date: 05/07/20 Status: Ordered Problem List Condition Effective Dates Status Health Status Inform ant Cardiomyopathy(Confirmed) Active COPD (chronic obstructive pu lmonary disease)(Confirmed) Active Disorder of lung(Confirmed) Active Diverticulosis(Confirmed) Active Dysphagia(Confirmed) Active Abnormal echocardiogram(Confirmed) Active COPD with chronic bronchitis(Confirmed) Active History of Clostridium difficile(Confirmed) Active History of B-cell lymphoma(Confirmed) Active Insomnia(Confirmed) Active Lymphoma (clinical)(Confirmed) Active Migraines(Confirmed) Active CELINE (obstructive sleep apnea)(Confirmed) Active Osteoarthritis of knee(Confirmed) Active Osteoporosis(Confirmed) Active Social History Social History Type Response Smoking Status Former smoker entered on: 09/06/14 Sex
--- OUTSIDE RECORDS SUMMARY | 2023-08-31 08:12 | XMS_ITS | Continuity of Care Document ---
Author Organization [facility] Address [address] [place] [phone]- Care Team Providers Care Program Director/Music Director Name Role Phone Tray BROWN, Robert Anthony Primary Care Physician [phone] Encounter [facility] Date(s): 12/09/20 - 01/08/21 [facility] [address] [place] [id number]- Attending Physician: Adithya Sheth Admitting Physician: Adithya Sheth Referring Physician: Adithya Sheth Allergies, Adverse Reactions, Alerts Substance Reaction Severity Status codeine Active tetanus toxoid Active sulfa drugs Active Immunizations Given and Recorded Vaccine Date Status Refusal Reason SARS-CoV-2 (COVID-19) mRNA BNT-162b2 vac 06/24/20 Given SARS-CoV-2 (COVID-19) mRNA BNT-162b2 vac 06/03/20 Recorded influenza virus vaccine, inactivated 02/01/20 Paulino rded influenza virus vaccine, inactivated 1 02/10/18 Re corded influenza virus vaccine, inactivated 2 03/29/17 Re corded influenza virus vaccine, inactivated 3 02/23/16 Re corded influenza virus vaccine, inactivated 4 03/14/15 Re corded influenza virus vaccine, inactivated 5 03/08/14 Gi tj influenza virus vaccine, inactivated 6 02/09/12 Re corded pneumococcal 13-valent vaccine 7 07/29/15 Recorded pneumococcal 13-valent vaccine 8 08/31/12 Recorded Zoster Vaccine Live 08/31/12 Recorded pneumococcal 23-valent vaccine 9 06/20/12 Recorded 1Location History: [facility] 2Location History: [facility] 3Result Comment: [06/19/2016] [facility] 4Result Comment: [06/19/2016] [facility] 5Early/Late Reason: Other : 6Result Comment: [06/19/2016] [facility] 7Result Comment: [06/19/2016] [facility] 8Result Comment: [06/19/2016] [facility] 9Result Comment: [06/19/2016] [facility] Medications albuterol 0.083% inhalation solution 3 mL = 2.5 mg, Inhalation, Every 6 hours, use Acapella device after every treatment, # 120 each, 3 Refills, Maintenance, 06/27/20 15:48:00 EST, Solution, [facility][id number], 151, cm, 02/05/20 7:35:00 EDT, Height Start Date: 06/27/20 Status: Ordered amoxicillin 500 mg oral capsule 4 capsule = 2,000 mg, By Mouth, Once, take 4 capsules prior to dental procedure, # 4 capsule, 0 Refills, Soft Stop, 08/15/20 16:35:00 EDT, [id number], 151, cm, 02/05/20 7:35:00 EDT, Height Start Date: 08/15/20 Status: Ordered aspirin 81 mg oral tablet, chewable 81 mg, 1, tablet, By Mouth, Daily, # 90 tablet, Refills 3, Tot. Refills 3, Maintenance, 02/05/20 7:58:00 EDT, Route to Pharmacy Electronically, [facility] #[id number], 151, cm, 02/05/20 7:35:00 EDT, Height, 65.4, kg, 05/02/18 11:04:00 EST, Dry We... Start Date: 02/05/20 Status: Ordered Hyper-Don 7% inhalation solution 4 mL = 0.28 Gm, Neb, 2 times a day, take with 0.5ml = 2.5 mg albuterol (add hypersal 4ml to 0.5ml albuterol) twice a day, # 240 mL, 11 Refills, Maintenance, 08/07/20 9:58:00 EDT, [facility][id number], J47.0 bronchiectasis, 4 mL Neb 2 times a da... Start Date: 08/07/20 Stop Date: 08/02/21 Status: Ordered Lasix 40 mg oral tablet 40 mg, 1, tablet, By Mouth, Daily, [place] [facility] [place] [facility] [place] 12/18/20, # 30 tablet, Refills 0, Maintenance, 12/19/20 13:31:00 EDT, Partial fill upon patient request if the prescription is for a schedule II opioid drug. Start Date: 12/19/20 Status: Ordered meloxicam 7.5 mg oral tablet 1 tablet, By Mouth, Daily, # 90 tablet, 0 Refills, [facility][id number], 151, cm, 12/27/20 8:19:00 EDT, Height Start Date: 12/27/20 Status: Ordered Nebulizer/Compressor See Instructions, # 1 each, Refills 11, Tot. Refills 11, Maintenance, E0570 Nebulizer A7003 Neb Disp Set A7014 Neb non-Disp Filter A7005 Neb Non-Disp set A7015 Aerosol Mask A7013 Neb Disp Filter length of need lifetime 99 months DX COPD J44.9, 03/... Start Date: 06/27/20 Status: Ordered Plavix 75 mg oral tablet 75 mg, 1, tablet, By Mouth, Daily, [place] [facility] [place] 12/18/20 stop asa after on plavix 21 days, # 30 tablet, Refills 0, Maintenance, 12/19/20 13:32:00 EDT, Partial fill upon patient request ifthe prescription is for a schedule II opioid drug. Start Date: 12/19/20 Status: Ordered ProAir HFA 90 mcg/inh inhalation aerosol with adapter 2, puffs, Inhalation, 4 times a day, PRN, # 1 each, Refills 6, Tot. Refills 6, Maintenance, 08/26/20 14:10:00 EDT, Route to Pharmacy Electronically, [id number], [id number], 151, cm, 08/26/20 13:26:00 EDT, Height Start Date: 08/26/20 Status: Ordered Spiriva Respimat 60 ACT 2.5 mcg/inh inhalation aerosol 2 puffs, Inhalation, Daily, # 3 each, 3 Refills, Maintenance, 11/22/19 12:33:00 EDT, [facility], 151, cm, 11/22/19 11:48:00 EDT, Height, 65.4, kg, 05/02/18 11:04:00 EST, Dry Weight Start Date: 11/22/19 Status: Ordered Trelegy Ellipta 200 mcg-62.5 mcg-25 mcg/inh inhalation powder 1 puffs, Inhalation, Daily, at the same time every day, # 1 each, 6 Refills, Maintenance, 12/06/20 9:31:00 EDT, Powder, [facility][id number], Partial fill upon patient request if the prescription is for a schedule II opioid drug., 1 puffs Inhal... Start Date: 12/06/20 Stop Date: 07/04/21 Status: Ordered Problem List Condition Effective Dates Status Health Status Inform ant Cardiomyopathy(Confirmed) Active COPD (chronic obstructive pu lmonary disease)(Confirmed) Active Disorder of lung(Confirmed) Active Diverticulosis(Confirmed) Active Dysphagia(Confirmed) Active Abnormal echocardiogram(Confirmed) Active COPD with chronic bronchitis(Confirmed) Active History of Clostridium difficile(Confirmed) Active History of B-cell lymphoma(Confirmed) Active Insomnia(Confirmed) Active Lymphoma (clinical)(Confirmed) Active Migraines(Confirmed) Active CELINE (obstructive sleep apnea)(Confirmed) Active 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
--- OUTSIDE RECORDS SUMMARY | 2023-08-31 08:12 | XMS_ITS | Continuity of Care Document ---
Author Organization [facility] Address [address] [place] [address]- Care Team Providers Care Inspector Repairer Sandstone Name Role Phone Tray BROWN, Robert Anthony Primary Care Physician [place] [facility] [place] 07/23/23 - 08/22/23 [facility] [address] [place] [address]- Attending Physician: Adithya Sheth Admitting Physician: Adithya Sheth Referring Physician: AdmtrAdithya Allergies, Adverse Reactions, Alerts Substance Reaction Severity Status codeine Active tetanus toxoid Active sulfa drugs Active Fish Active Immunizations Given and Recorded Vaccine Date Status Refusal Reason influenza virus vaccine, inactivated 01/27/23 Paulino rded influenza virus vaccine, inactivated 01/15/21 Paulino rded influenza virus vaccine, inactivated 02/01/20 Paulino rded influenza virus vaccine, inactivated 1 02/10/18 Re corded influenza virus vaccine, inactivated 2 03/29/17 Re corded influenza virus vaccine, inactivated 3 02/23/16 Re corded influenza virus vaccine, inactivated 4 03/14/15 Re corded influenza virus vaccine, inactivated 5 03/08/14 Gi tj influenza virus vaccine, inactivated 6 02/09/12 Re corded [id number] 12y+ bivalent booster vax 08/15/22 Recorded Influenza Virus Vaccine (oldterm) 7 02/03/22 Recor ded SARS-CoV-2 mRNA (iflgvyi-sevo-jacom) vax 08/06/21 Recorded SARS-CoV-2 (COVID-19) mRNA BNT-162b2 vac 01/27/21 Recorded SARS-CoV-2 (COVID-19) mRNA BNT-162b2 vac 06/24/20 Given SARS-CoV-2 (COVID-19) mRNA BNT-162b2 vac 06/03/20 Recorded pneumococcal 13-valent vaccine 8 07/29/15 Recorded pneumococcal 13-valent vaccine 9 08/31/12 Recorded Zoster Vaccine Live 08/31/12 Recorded pneumococcal 23-valent vaccine 10 06/20/12 Recorde d 1Location History: [facility] 2Location History: [facility] 3Result Comment: [06/19/2016] [facility] 4Result Comment: [06/19/2016] [facility] 5Early/Late Reason: Other : 6Result Comment: [06/19/2016] [facility] 7Result Comment: influenza at [facility] 8Result Comment: [06/19/2016] [facility] 9Result Comment: [06/19/2016] [facility] 10Result Comment: [06/19/2016] [place] Medications albuterol 0.083% inhalation solution 3 mL, Inhalation, Every 6 hours, USE ACAPELLA DEVICE AFTER EVERY TREATMENT. J44.9, # 360 mL, 5 Refills, 01/18/23 8:59:00 EDT, [facility] #[id number], J44.9, 150, cm, 01/11/23 10:59:00 EDT, Height, 61, kg, 04/17/22 11:31:00 EST, Dry Weight Start Date: 01/18/23 Status: Ordered bisoprolol 5 mg oral tablet See Instructions, TAKE 1/2 TABLET DAILY, # 45 Unknown, 0 Refills, Maintenance, 02/22/23 7:49:00 EDT, [facility], 150, cm, 01/11/23 10:59:00 EDT, Height, 61, kg, 04/17/22 11:31:00 EST, Dry Weight Start Date: 02/22/23 Status: Ordered clopidogrel 75 mg oral tablet See Instructions, TAKE 1 TABLET DAILY, # 90 Unknown, Refills 0, Maintenance, 02/22/23 7:49:00 EDT, Instructions Replace Required Details, Route to Pharmacy Electronically, [facility], 150, cm, 01/11/23 10:59:00 EDT, Height, 61, kg, 04/17/22... Start Date: 02/22/23 Status: Ordered Lasix 40 mg oral tablet 1, tablet, By Mouth, Daily, # 90 Unknown, Refills 3, Maintenance, 02/08/23 16:25:00 EDT, Route to Pharmacy Electronically, [facility], 150, cm, 01/11/23 10:59:00 EDT, Height, 61, kg, 04/17/22 11:31:00 EST, Dry Weight Start Date: 02/08/23 Status: Ordered lidocaine 5% topical film See Instructions, Topically to affected area daily; remove patches after 12 hours, # 30 patch, 11 Refills, Soft Stop, 07/19/23 9:46:00 EDT, Patch, [facility] #[id number], Partial fill upon patient request if the prescription is for a schedule II opioid d... Start Date: 07/19/23 Status: Ordered losartan 25 mg oral tablet See Instructions, TAKE 1/2 TABLET DAILY, # 45 Unknown, 0 Refills, Maintenance, 02/22/23 7:49:00 EDT, [facility], 150, cm, 01/11/23 10:59:00 EDT, Height, 61, kg, 04/17/22 11:31:00 EST, Dry Weight Start Date: 02/22/23 Status: Ordered Pepcid Complete By Mouth, Every 12 hours, 0 Refills, Maintenance, 05/05/21 12:10:00 EST, Partial fill upon patient request if the prescription is for a schedule II opioid drug. Start Date: 05/05/21 Status: Ordered ProAir HFA 90 mcg/inh inhalation aerosol with adapter 2, puffs, Inhalation, 4 times a day, PRN, # 1 each, Refills 5, Tot. Refills 5, Maintenance, 10/17/21 15:25:00 EDT, Route to Pharmacy Electronically, [id number], [id number], 151, cm, 09/29/21 13:12:00 EDT, Hei... Start Date: 10/17/21 Status: Ordered Relyvrio By Mouth, 2 times a day, 0 Refills, Maintenance, 04/15/23 11:01:00 EST, Partial fill upon patient request if the prescription is for a schedule II opioid drug. Start Date: 04/15/23 Status: Ordered riluzole 50 mg oral tablet 1 tablet = 50 mg, By Mouth, Every 12 hours, # 120 tablet, 0 Refills, Maintenance, 11/26/22 16:01:00EDT, Tablet, Partial fill upon patient request if the prescription is for a schedule II opioid drug. Start Date: 11/26/22 Status: Ordered Sodium Chloride, Inhalation 0.9% inhalation solution See Instructions, USE 4 ML VIA NEBULIZER TWICE DAILY USE WITH 0.5% TOGETHER IN VIA NEBULIZER j45.909, # 300 mL, 5 Refills, Maintenance, 02/11/23 9:46:00 EDT, [facility] #[id number], USE 4 ML VIANEBULIZER TWICE DAILY USE WITH 0.5% TOGETHER IN VIA... Start Date: 02/11/23 Status: Ordered traMADol 50 mg oral tablet 1 tablet = 50 mg, By Mouth, Every 12 hours, PRN for pain, # 30 tablet, 5 Refills, Acute 01/06/24 10:48:00 EDT, 07/06/23 10:47:00 EDT, Tablet, [facility]/pharmacy #[id number], Partial fill upon patient request if the prescription is for a schedule II opioid drug.,... Start Date: 07/06/23 Stop Date: 01/06/24 Status: Ordered Trelegy Ellipta 200 mcg-62.5 mcg-25 mcg/inh inhalation powder 1 puffs, Inhalation, Daily, at the same time every day, j44.9, # 3 each, 1 Refills, Maintenance, 03/01/23 8:32:00 EST, Powder, [facility], Partial fill upon patient request if the prescription is for a schedule II opioid drug., 1 puffs Inh... 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 LVEF 40-45% 6, 7 Confirmed Active Diarrhea Confirmed Active Disorder of lung Confirmed Active Diverticulosis Confirmed Active Dysphagia Confirmed Active Abnormal echocardiogram Confirmed Active COPD with chronic bronchitis Confirmed Active History of Clostridium difficile Confirmed Active Heart failure with preserved ejection fraction Confirmed Active History of pulmonary artery thrombosis (chronic) 8 Confirmed Active H/O diffuse large B-cell lymphoma 9 Confirmed Active Insomnia Confirmed Active Migraines Confirmed Active CELINE (obstructive sleep apnea) Confirmed Active 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 2LVEF improved from 40-455 to 45-50% on echo 02/2022; grade II diastolic dysfunction also. 3Per cardiology presumed secondary to chemotherapy. carotid duplex: TATI 1-49% stenosis; LICA 1-49% stenosis 5Per chart review meeting GFR criteria 6Admission to [facility] for CHF 11/2020. Cardiac MRI: LVEF 44%; 12/16/20 echo at [facility]: LVEF=40-45% 8Per CT w/contrast 12/19/2021: Irregular partially calcified tissue along the distal left main pulmonary artery extending along the regular small caliber left lower lobe pulmonary artery branch probably reflecting chronic thrombus.. [id number] as lung mass. S/P R-CHOP x 6 cycles. Social History Social History Type Response Smoking Status Former smoker entered on: 09/06/14 Sex Cardiology * Event Display: Holter Report Authored Date: * Event Display: Stress Test Worksheet Authored Date: EKG study * Event Display: EKG Authored Date: Laboratory * Event Display: Non BH Lab Results Authored Date: * Event Display: Laboratory Result Scanned Authored Date: * Event Display: Laboratory Result Scanned Authored Date: * Event Display: Non BH Lab Results Authored Date: * Event Display: Non BH Lab Results Authored Date: * Event Display: Non BH Lab Results Authored Date: * Event Display: Non BH Lab Results Authored Date: * Event Display: Non BH Lab Results Authored Date: Radiology * Event Display: Bone Density Authored Date: * Event Display: CT Scan Head, Non- BH Authored Date: MG Breast Views * Event Display: MM Mammogram Authored Date: * Event Display: MM Mammogram Authored Date: * Event Display: MM Mammogram Authored Date: Patient Care team information Care Team Personnel Name: Manuel Mayes MD Position: [facility] Physician - Pulm/Critical Care Member Role: Load Out Supervisor Address: Address: [address] [place] [address] [address] [facility] [place] [address]- [place] Name: Kenneth Chowdary MD Position: [facility] Cardiology MD Member Role: Bedspring Assembler Address: Address: [address] [place] [address] [address] [facility] [place] [place] [address]- [place] Name: Robert Feliz MD Position: [facility] Physician - Primary Care Member Role: PCP Address: Address: [address] [place] [address]- [place] Name: Georgette Silva Position: [facility] [place] Cook Syrup Maker Member Role: Ops Manager Name: Epi Turner Member Role: Neurologist Name: Zi Monge MD Position: Reference Physician Member Role: Lead Systems Engineer Address: Address: [address] [place] [address] [address] [facility] [place] [address]- [place] Care Team Related Persons Name: RAMIRO MARR Address: home [address] [place] [address]
--- OUTSIDE RECORDS SUMMARY | 2023-08-31 08:12 | XMS_ITS | Continuity of Care Document ---
Author Organization [facility] Address [address] [place] [address]- Care Team Providers Care Wall Taper Name Role Phone Tray BROWN, Robert Anthony Primary Care Physician [phone] Encounter [facility] Date(s): 01/06/22 - 02/05/22 [facility] [address] [place] [address]- Allergies, Adverse Reactions, Alerts Substance Reaction Severity Status codeine Active tetanus toxoid Active sulfa drugs Active Immunizations Given and Recorded Vaccine Date Status Refusal Reason SARS-CoV-2 mRNA (cwbkyur-bbqt-cdqmu) vax 08/06/21 Recorded SARS-CoV-2 (COVID-19) mRNA BNT-162b2 vac 01/27/21 Recorded SARS-CoV-2 (COVID-19) mRNA BNT-162b2 vac 06/24/20 Given SARS-CoV-2 (COVID-19) mRNA BNT-162b2 vac 06/03/20 Recorded influenza virus vaccine, inactivated 01/15/21 Paulino rded [...] Recorded 1Location History: [facility] 2Location History: [facility] 3Result Comment: [06/19/2016] [facility] 4Result Comment: [06/19/2016] [facility] 5Early/Late Reason: Other : 6Result Comment: [06/19/2016] [facility] 7Result Comment: [06/19/2016] [facility] 8Result Comment: [06/19/2016] [facility] 9Result Comment: [06/19/2016] [place] Medications albuterol 0.083% inhalation solution 3 mL, Inhalation, Every 6 hours, USE ACAPELLA DEVICE AFTER EVERY TREATMENT., # 360 mL, 5 Refills, [facility] #[id number], 151, cm, 09/29/21 13:12:00 EDT, Height, 61.69, kg, 09/29/21 13:11:00 EDT, Dry Weight Start Date: 11/13/21 Status: Ordered bisoprolol 5 mg oral tablet 0.5 tablet = 2.5 mg, By Mouth, Daily, # 45 tablet, 3 Refills, Maintenance, 06/12/21 13:52:00 EST, Tablet, [facility], 151, cm, 06/11/21 13:48:00 EST, Height Start Date: 06/12/21 Stop Date: 06/07/22 Status: Ordered clopidogrel 75 mg oral tablet 1, tablet, By Mouth, Daily, # 90 Unknown, Refills 3, Route to Pharmacy Electronically, [facility], 151, cm, 09/29/21 13:12:00 EDT, Height, 61.69, kg, 09/29/21 13:11:00 EDT, Dry Weight Start Date: 11/05/21 Status: Ordered Furosemide = 20 mg, Daily, 0 Refills, Maintenance, 01/27/22 10:08:00 EDT, Partial fill upon patient request ifthe prescription is for a schedule II opioid drug. Start Date: 01/27/22 Status: Ordered Hyper-Don 7% inhalation solution 4 mL = 0.28 Gm, Neb, 2 times a day, take with 0.5ml = 2.5 mg albuterol (add hypersal 4ml to 0.5ml albuterol) twice a day J47.0, # 720 mL, 1 Refills, Maintenance, 07/28/22 9:58:00 EDT, [facility] #[id number], J47.0 bronchiectasis, 4 mL Neb 2 times... Start Date: 07/28/22 Status: Ordered Lasix 40 mg oral tablet 1, tablet, By Mouth, Daily, # 90 Unknown, Refills 3, Route to Pharmacy Electronically, [facility], 151, cm, 09/29/21 13:12:00 EDT, Height, 61.69, kg, 09/29/21 13:11:00 EDT, Dry Weight Start Date: 11/05/21 Status: Ordered losartan 25 mg oral tablet 12.5 mg, 0.5, tablet, By Mouth, Daily, Take 0.5 tablet (12.5mg) daily, # 45 tablet, Refills 3, Tot.Refills 3, Maintenance, 06/12/21 13:52:00 EST, Route to Pharmacy Electronically, [facility], 151, cm, 06/11/21 13:48:00 EST, Height Start Date: 06/12/21 Stop Date: 06/07/22 Status: Ordered Nebulizer/Compressor See Instructions, # 1 each, Refills 11, Tot. Refills 11, Maintenance, E0570 Nebulizer A7003 Neb Disp Set A7014 Neb non-Disp Filter A7005 Neb Non-Disp set A7015 Aerosol Mask A7013 Neb Disp Filter length of need lifetime 99 months DX COPD J44.9, 03... Start Date: 06/27/20 Status: Ordered Pepcid Complete By Mouth, Every [...] 10/17/21 15:25:00 EDT, Route to Pharmacy Electronically, [id number], [facility] #[id number], 151, cm, 09/29/21 13:12:00 EDT, Hei... Start Date: 10/17/21 Status: Ordered Sodium Chloride, Inhalation 0.9% inhalation solution 4 mL = 0.036 Gm, Neb, 2 times a day, use with 0.5% albuterol solution together in nebulizer, # 240 mL, 6 Refills, Maintenance, 06/12/21 19:39:00 EST, [facility] #[id number], Partial fill upon patient request if the prescription is for a schedule... Start Date: 06/12/21 Stop Date: 01/08/22 Status: Ordered Trelegy Ellipta 200 mcg-62.5 mcg-25 mcg/inh inhalation powder 1 puffs, Inhalation, Daily, at the same time every day, j44.9, # 3 each, 3 Refills, Maintenance, 11/03/21 14:49:00 EDT, Powder, [facility], Partial fill upon patient request if the prescription is for a schedule II opioid drug., 1 puffs In... 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 LVEF 40-45% 5, 6 Confirmed Active Diarrhea Confirmed Active Disorder of lung Confirmed Active Diverticulosis Confirmed Active Dysphagia Confirmed Active Abnormal echocardiogram Confirmed Active COPD with chronic bronchitis Confirmed Active History of Clostridium difficile Confirmed Active Insomnia Confirmed Active Diffuse large B cell lymphoma in remission 7 Confirmed Active Migraines Confirmed Active CELINE (obstructive sleep apnea) Confirmed Active 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 2Per cardiology presumed secondary to chemotherapy. carotid duplex: TATI 1-49% stenosis; LICA 1-49% stenosis 4Per chart review meeting GFR criteria 5Admission to [facility] [place] for [place] 11/2020. Cardiac MRI: LVEF 44%; 12/16/20 echo at [facility] [place]: LVEF=40-45% [id number] as lung mass. S/P R-CHOP x 6 cycles. Social History Social History Type Response Smoking Status Former smoker entered on: 09/06/14 Sex Patient Care team information Personnel Name: Tray BROWN, Robert Anthony Address: Address: [address] [place] [id number]
--- OUTSIDE RECORDS SUMMARY | 2023-08-31 08:12 | XMS_ITS | Continuity of Care Document ---
Author Organization [facility] Address [address] [address]- Care Team Providers Care Occupational Safety And Health Manager Name Role Phone Tray BROWN, Robert Anthony Primary Care Physician [phone] Encounter [facility] [place] Date(s): 05/14/22 - 06/13/22 [facility] [address] [place] [id number] Allergies, Adverse Reactions, Alerts Substance Reaction Severity Status codeine Active tetanus toxoid Active sulfa drugs Active Fish Active Immunizations Given and Recorded Vaccine Date Status Refusal Reason Influenza Virus Vaccine (oldterm) 1 02/03/22 Recor ded SARS-CoV-2 mRNA (nhpeycn-kvzz-rkinw) vax 08/06/21 Recorded SARS-CoV-2 (COVID-19) mRNA BNT-162b2 vac 01/27/21 Recorded SARS-CoV-2 (COVID-19) mRNA BNT-162b2 vac 06/24/20 Given SARS-CoV-2 (COVID-19) mRNA BNT-162b2 vac 06/03/20 Recorded influenza virus vaccine, inactivated 01/15/21 Paulino rded influenza virus vaccine, inactivated 02/01/20 Paulino rded influenza virus vaccine, inactivated 2 02/10/18 Re corded influenza virus vaccine, inactivated 3 03/29/17 Re corded influenza virus vaccine, inactivated 4 02/23/16 Re corded influenza virus vaccine, inactivated 5 03/14/15 Re corded influenza virus vaccine, inactivated 6 03/08/14 Gi tj influenza virus vaccine, inactivated 7 02/09/12 Re corded pneumococcal 13-valent vaccine 8 07/29/15 Recorded pneumococcal 13-valent vaccine 9 08/31/12 Recorded Zoster Vaccine Live 08/31/12 Recorded pneumococcal 23-valent vaccine 10 06/20/12 Recorde d 1Result Comment: influenza at [facility] 2Location History: [facility] 3Location History: [facility] 4Result Comment: [06/19/2016] [facility] 5Result Comment: [06/19/2016] [facility] 6Early/Late Reason: Other : 7Result Comment: [06/19/2016] [facility] 8Result Comment: [06/19/2016] [facility] 9Result Comment: [06/19/2016] [facility] 10Result Comment: [06/19/2016] [facility] Medications albuterol 0.083% inhalation solution 3 mL, Inhalation, Every 6 hours, USE ACAPELLA DEVICE AFTER EVERY TREATMENT., # 360 mL, 5 Refills, [facility] #[id number], 151, cm, 09/29/21 13:12:00 EDT, Height, 61.69, kg, 09/29/21 13:11:00 EDT, Dry Weight Start Date: 11/13/21 Status: Ordered bisoprolol 5 mg oral tablet See Instructions, TAKE 1/2 TABLET DAILY, # 45 Unknown, 1 Refills, Maintenance, 04/28/22 8:52:00 EST, [facility], 150, cm, 04/17/22 11:31:00 EST, Height, 61, kg, 04/17/22 11:31:00 EST, Dry Weight Start Date: 04/28/22 Status: Ordered clopidogrel 75 mg oral tablet 1, tablet, By Mouth, Daily, # 90 Unknown, Refills 3, Route to Pharmacy Electronically, [facility], 151, cm, 09/29/21 13:12:00 EDT, Height, 61.69, kg, 09/29/21 13:11:00 EDT, Dry Weight Start Date: 11/05/21 Status: Ordered Diazepam = 1 mg, By Mouth, PRN for dizziness, 0 Refills, Maintenance, 05/13/22 13:24:00 EST, Partial fill upon patient request if the prescription is for a schedule II opioid drug. Start Date: 05/13/22 Status: Ordered Lasix 40 mg oral tablet 1, tablet, By Mouth, Daily, # 90 Unknown, Refills 3, Route to Pharmacy Electronically, [facility], 151, cm, 09/29/21 13:12:00 EDT, Height, 61.69, kg, 09/29/21 13:11:00 EDT, Dry Weight Start Date: 11/05/21 Status: Ordered losartan 25 mg oral tablet See Instructions, TAKE 1/2 TABLET DAILY, # 45 Unknown, 1 Refills, Maintenance, 04/28/22 8:52:00 EST, [facility], 150, cm, 04/17/22 11:31:00 EST, Height, 61, kg, 04/17/22 11:31:00 EST, Dry Weight Start Date: 04/28/22 Status: Ordered meclizine 25 mg oral tablet 1 tablet = 25 mg, By Mouth, 3 times a day, PRN for dizziness, # 30 tablet, 0 Refills, Maintenance, 05/13/22 13:24:00 EST, Tablet, Partial fill upon patient request if the prescription is for a schedule II opioid drug. Start Date: 05/13/22 Status: Ordered Nebulizer/Compressor See Instructions, # 1 each, Refills 11, Tot. Refills 11, Maintenance, E0570 Nebulizer A7003 Neb Disp Set A7014 Neb non-Disp Filter A7005 Neb Non-Disp set A7015 Aerosol Mask A7013 Neb Disp Filter length of need lifetime 99 months DX COPD J44.9, ... Start Date: 06/27/20 Status: Ordered Pepcid Complete [...] 10/17/21 15:25:00 EDT, Route to Pharmacy Electronically, [id number], [facility] #[id number], 151, cm, 09/29/21 13:12:00 EDT, Hei... Start Date: 10/17/21 Status: Ordered Sodium Chloride, Inhalation 0.9% inhalation solution See Instructions, USE 4 ML VIA NEBULIZER TWICE DAILY USE WITH 0.5% VIA INHALER SOLUTION TOGETHER INVIA NEBULIZER, # 300 mL, 0 Refills, Maintenance, 04/28/22 9:38:00 EST, [facility] #[id number],25, USE 4 ML VIA NEBULIZER TWICE DAILY USE WITH 0.5... Start Date: 04/28/22 Status: Ordered Trelegy Ellipta 200 mcg-62.5 mcg-25 [...] failure with preserved ejection fraction Confirmed Active Insomnia Confirmed Active Diffuse large [...] chart review meeting GFR criteria 5Admission to [facility] for CHF 11/2020. Cardiac MRI: LVEF 44%; 12/16/20 echo at [facility]: LVEF=40-45% [id number] as lung mass. S/P R-CHOP x 6 cycles. Social History Social History Type Response Smoking Status Former smoker entered on: 09/06/14 Sex Patient Care team information Care Team Personnel Name: Francoise Black RN Position: [facility] RN Member Role: Primary Care Nurse Name: Chiqui Stoll RN Position: [facility] RN Member Role: Primary Care Nurse Name: Robert Feliz MD Position: [facility] Primary Care Physician Member Role: PCP Address: Address: [address] [place] [address]- Care Team Related Persons Name: PARENTRAMIRO Address: home [address] [place] [id number]
--- OUTSIDE RECORDS SUMMARY | 2023-08-31 08:12 | XMS_ITS | Continuity of Care Document ---
Author Organization [facility] Riky Zac lt Address [address] [place] [address]- Care Team Providers Care Medical Orderly Name Role Phone Tray BROWN, Robert Anthony Primary Care Physician [place] [facility] [facility] [place]/20/21 - 09/19/21 [facility] [address] [place] [address]- Allergies, Adverse Reactions, Alerts Substance Reaction Severity Status codeine Active tetanus toxoid Active sulfa drugs Active Immunizations Given and Recorded Vaccine Date Status Refusal Reason SARS-CoV-2 (COVID-19) mRNA BNT-162b2 vac 01/27/21 Recorded [...] 23-valent vaccine 9 06/20/12 Recorded 1Location History: [facility] 2Location History: [facility] 3Result Comment: [06/19/2016] [facility] 4Result Comment: [06/19/2016] [facility] 5Early/Late Reason: Other : 6Result Comment: [06/19/2016] [facility] 7Result Comment: [06/19/2016] [facility] 8Result Comment: [06/19/2016] [facility] 9Result Comment: [06/19/2016] [facility] Medications albuterol 0.083% inhalation solution 3 mL, Inhalation, Every 6 hours, USE ACAPELLA DEVICE AFTER EVERY TREATMENT., # 360 mL, 0 Refills, [facility] #[id number], 151, cm, 06/11/21 13:48:00 EST, Height Start Date: 08/18/21 Status: Ordered albuterol 5 mg/mL (0.5%) inhalation solution 0.5 mL = 2.5 mg, Inhalation, Every 6 hours, PRN for wheezing, # 20 mL, 11 Refills, Maintenance, 08/26/21 14:10:00 EDT, Solution, [facility] #[id number], Partial fill upon patient request if the prescription is for a schedule II opioid drug., 151,... Start Date: 08/26/21 Status: Ordered amoxicillin 500 mg oral capsule 4 capsule = 2,000 mg, By Mouth, Once, take 4 capsules prior to dental procedure, # 4 capsule, 5 Refills, Soft Stop, 05/06/21 17:27:00 EST, [facility] #[id number], 151, cm, 05/05/21 12:08:00 EST,Height Start Date: 05/06/21 Status: Ordered B-Complex SR By Mouth, Daily, 0 Refills, Maintenance, 05/05/21 12:11:00 EST, Partial fill upon patient request if the prescription is for a schedule II opioid drug. Start Date: 05/05/21 Status: Ordered bisoprolol 5 mg oral tablet 0.5 tablet = 2.5 mg, By Mouth, Daily, # 45 tablet, 3 Refills, Maintenance, 06/12/21 13:52:00 EST, Tablet, [facility], 151, cm, 06/11/21 13:48:00 EST, Height Start Date: 06/12/21 Stop Date: 06/07/22 Status: Ordered clopidogrel 75 mg oral tablet See Instructions, TAKE 1 TABLET BY MOUTH DAILY, # 90 tablet, Refills 1, Tot. Refills 1, 05/23/21 11:14:00 EST, Instructions Replace Required Details, Route to Pharmacy Electronically, [facility], 151, cm, 05/05/21 12:08:00 EST, Height Start Date: 05/23/21 Status: Ordered Hyper-Don 7% inhalation solution 4 mL = 0.28 Gm, Neb, 2 times a day, take with 0.5ml = 2.5 mg albuterol (add hypersal 4ml to 0.5ml albuterol) twice a day J47.0, # 720 mL, 1 Refills, Maintenance, 07/28/22 9:58:00 EDT, [facility] #[id number], J47.0 bronchiectasis, 4 mL Neb 2 times... Start Date: 07/28/22 Status: Ordered Hyper-Don 7% inhalation solution 4 mL = 0.28 Gm, Neb, 2 times a day, take with 0.5ml = 2.5 mg albuterol (add hypersal 4ml to 0.5ml albuterol) twice a day, # 720 mL, 1 Refills, Hard Stop 07/28/22 9:58:00 EDT, 08/02/21 9:58:00 EDT, [facility], J47.0 bronchiectasis, 151, cm,... Start Date: 08/02/21 Stop Date: 07/28/22 Status: Ordered Imodium Capsule 2 mg, By Mouth, Every 4 hours, Refills 0, Maintenance, 05/05/21 12:12:00 EST, Partial fill upon patient request if the prescription is for a schedule II opioid drug. Start Date: 05/05/21 Status: Ordered Lasix 40 mg oral tablet 40 mg, 1, tablet, By Mouth, Daily, prescribed by [facility] doctor 12/18/20, # 90 tablet, Refills 1, Tot. Refills 1, Maintenance, 05/23/21 11:14:00 EST, Route to Pharmacy Electronically, [facility], Partial fill upon patient request if the pre... Start Date: 05/23/21 Status: Ordered losartan 25 mg oral tablet 12.5 mg, 0.5, tablet, By Mouth, Daily, Take 0.5 tablet (12.5mg) daily, # 45 tablet, Refills 3, Tot.Refills 3, Maintenance, 06/12/21 13:52:00 EST, Route to Pharmacy Electronically, [facility], 151, cm, 06/11/21 13:48:00 EST, Height Start Date: 06/12/21 Stop Date: 06/07/22 Status: Ordered meloxicam 7.5 mg oral tablet 1 tablet, By Mouth, Daily, # 90 tablet, 0 Refills, [facility] #[id number], 151, cm, 12/27/20 8:19:00 EDT, Height Start [...] opioid drug. Start Date: 05/05/21 Status: Ordered Plavix 75 mg oral tablet 75 mg, 1, tablet, By Mouth, Daily, # 30 tablet, Refills 2, Tot. Refills 2, Maintenance, 01/10/21 13:45:00 EDT, Route to Pharmacy Electronically, [facility] #[id number], Partial fill upon patientrequest if the prescription is for a schedule II op... Start Date: 01/10/21 Status: Ordered rosuvastatin 5 mg oral tablet 1 tablet = 5 mg, By Mouth, Daily, # 30 tablet, 5 Refills, Maintenance, 04/08/21 9:24:00 EST, Tablet, [facility] #[id number], 151, cm, 03/07/21 9:27:00 EST, Height Start Date: 04/08/21 Stop Date: 10/05/21 Status: Ordered Sodium Chloride, Inhalation 0.9% inhalation solution 4 mL = 0.036 Gm, Neb, 2 times a day, use with 0.5% albuterol solution together in nebulizer, # 240 mL, 6 Refills, Maintenance, 06/12/21 19:39:00 EST, [facility] #[id number], Partial fill upon patient request if the prescription is for a schedule... Start Date: 06/12/21 Stop Date: 01/08/22 Status: Ordered Trelegy Ellipta 200 mcg-62.5 mcg-25 mcg/inh inhalation powder 1 puffs, Inhalation, Daily, at the same time every day, # 3 each, 1 Refills, Maintenance, 07/04/21 9:31:00 EST, Powder, [facility], Partial fill upon patient request if the prescription is for a schedule II opioid drug., 1 puffs Inhalation... Start Date: 07/04/21 Status: Ordered Problem List Condition [...]
--- OUTSIDE RECORDS SUMMARY | 2023-08-31 08:12 | XMS_ITS | Continuity of Care Document ---
Author Organization [facility] Address [address] [place] [address]- Care Team Providers Care Barrel Header Name Role Phone Tray BROWN, Robert Anthony Primary Care Physician [phone] Encounter [facility] Date(s): 05/07/21 - 06/06/21 [facility] [address] [place] [address]- Allergies, Adverse Reactions, Alerts Substance Reaction Severity [...] Recorded 1Location History: [facility] 2Location History: [facility] 3Result Comment: [06/19/2016] [facility] 4Result Comment: [06/19/2016] [facility] 5Early/Late Reason: Other : 6Result Comment: [06/19/2016] [facility] 7Result Comment: [06/19/2016] [facility] 8Result Comment: [06/19/2016] [facility] 9Result Comment: [06/19/2016] [facility] Medications albuterol 0.083% inhalation solution 3 mL = 2.5 mg, Inhalation, Every 6 hours, use Acapella device after every treatment, # 120 each, 3 Refills, Maintenance, 06/27/20 15:48:00 EST, Solution, [facility] #[id number], 151, cm, 02/05/20 7:35:00 EDT, Height Start Date: 06/27/20 Status: Ordered albuterol 5 mg/mL (0.5%) inhalation solution 0.5 mL = 2.5 mg, Inhalation, 2 times a day, PRN for wheezing, dilute in 4 mL of Hyper-Don and take twice a day, # 360 mL, 1 Refills, Maintenance, 05/27/21 11:41:00 EST, Solution, [facility], J47.0 bronchiectasis, 151, cm, 05/05/21 12:08:00... Start Date: 05/27/21 Status: Ordered amoxicillin 500 mg oral capsule 4 capsule = 2,000 mg, By Mouth, Once, take 4 capsules prior to dental procedure, # 4 capsule, 5 Refills, Soft Stop, 05/06/21 17:27:00 EST, [facility] #[id number], 151, cm, 05/05/21 12:08:00 EST,Height Start Date: 05/06/21 Status: Ordered B-Complex SR By Mouth, Daily, 0 Refills, Maintenance, 05/05/21 12:11:00 EST, Partial fill upon patient request if the prescription is for a schedule II opioid drug. Start Date: 05/05/21 Status: Ordered clopidogrel 75 mg oral tablet See Instructions, TAKE 1 TABLET BY MOUTH DAILY, # 90 tablet, Refills 1, Tot. Refills 1, 05/23/21 11:14:00 EST, Instructions Replace Required Details, Route to Pharmacy Electronically, [facility], 151, cm, 05/05/21 12:08:00 EST, Height Start Date: 05/23/21 Status: Ordered Hyper-Don 7% inhalation solution 4 mL = 0.28 Gm, Neb, 2 times a day, for 30 days, take with 0.5ml = 2.5 mg albuterol (add hypersal 4ml to 0.5ml albuterol) twice a day, # 240 mL, 11 Refills, Hard Stop 08/02/21 9:58:00 EDT, 08/07/20 9:58:00 EDT, [id number], J47.0 [facility]... Start Date: 08/07/20 Stop Date: 08/02/21 Status: Ordered Hyper-Don 7% inhalation solution 4 mL = 0.28 Gm, Neb, 2 times a day, take with 0.5ml = 2.5 mg albuterol (add hypersal 4ml to 0.5ml albuterol) twice a day, # 720 mL, 1 Refills, Maintenance, 08/02/21 9:58:00 EDT, [facility], J47.0 bronchiectasis, 4 mL Neb 2 times a day,Inst... Start Date: 08/02/21 Stop Date: 07/28/22 Status: Ordered Imodium Capsule 2 mg, By Mouth, Every 4 hours, Refills 0, Maintenance, 05/05/21 12:12:00 EST, Partial fill upon patient request if the prescription is for a schedule II opioid drug. Start Date: 05/05/21 Status: Ordered Lasix 40 mg oral tablet 40 mg, 1, tablet, By Mouth, Daily, prescribed by [facility] doctor 12/18/20, # 90 tablet, Refills 1, Tot. Refills 1, Maintenance, 05/23/21 11:14:00 EST, [facility] Electronically[facility], Partial fill upon patient request if the pre... Start Date: 05/23/21 Status: Ordered losartan 25 mg oral tablet 12.5 mg, 0.5, tablet, By Mouth, Daily, Take 0.5 tablet (12.5mg) daily, # 15 tablet, Refills 11, Tot. Refills 11, Maintenance, 02/05/21 8:59:00 EDT, Route to Pharmacy Electronically, [facility] #[id number], Partial fill upon patient request if the... Start Date: 02/05/21 Status: Ordered meloxicam 7.5 mg oral tablet 1 tablet, By Mouth, Daily, # 90 tablet, 0 Refills, [facility] #[id number], 151, cm, 12/27/20 8:19:00 EDT, Height Start [...] 01/10/21 13:45:00 EDT, Route to Pharmacy Electronically, [facility] #[id number], Partial fill upon patientrequest if the prescription is for a schedule II op... Start Date: 01/10/21 Status: Ordered ProAir HFA 90 mcg/inh inhalation aerosol with adapter 2, puffs, Inhalation, 4 times a day, PRN, # 1 each, Refills 6, Tot. Refills 6, Maintenance, 08/26/20 14:10:00 EDT, Route to Pharmacy Electronically, [id number], [facility] #[id number], 151, cm, 08/26/20 13:26:00 EDT, Height Start Date: 08/26/20 Status: Ordered rosuvastatin 5 mg oral tablet 1 tablet = 5 mg, By Mouth, Daily, # 30 tablet, 5 Refills, Maintenance, 04/08/21 9:24:00 EST, Tablet, [facility][id number], 151, cm, 03/07/21 9:27:00 EST, Height Start Date: 04/08/21 Stop Date: 10/05/21 Status: Ordered Trelegy Ellipta 200 mcg-62.5 mcg-25 mcg/inh inhalation powder 1 puffs, Inhalation, Daily, at the same time every day, # 3 each, 1 Refills, Maintenance, 07/04/21 9:31:00 EST, Powder, [facility], Partial fill upon patient request if the prescription is for a schedule II opioid drug., 1 puffs Inhalation... Start Date: 07/04/21 Status: Ordered Trelegy Ellipta 200 mcg-62.5 mcg-25 mcg/inh inhalation powder 1 puffs, Inhalation, Daily, for 30 days, at the same time every day, # 1 each, 6 Refills, Hard Stop07/04/21 9:31:00 EST, 12/06/20 9:31:00 EDT, Powder, [facility] #[id number], Partial fill upon patient request if the prescription is for a schedul... Start Date: 12/06/20 Stop Date: 07/04/21 Status: [...]
--- OUTSIDE RECORDS SUMMARY | 2023-08-31 08:12 | XMS_ITS | Continuity of Care Document ---
Author Organization [facility] Address [address] [facility], [address] d Floor, [address] [place] [address]- Care Team Providers Care Fertilizer Supervisor Name Role Phone Tray BROWN, Robert Anthony Primary Care Physician Encounter [facility] Date(s): 11/25/22 - 12/25/22 [facility] [address], [address], [address] [place] [address]- Allergies, Adverse Reactions, Alerts Substance Reaction Severity Status codeine Active tetanus toxoid Active sulfa drugs Active Fish Active Immunizations Given and Recorded Vaccine Date Status Refusal Reason [id number] 12y+ bivalent booster vax 08/15/22 Recorded Influenza Virus Vaccine (oldterm) 1 02/03/22 Recor ded SARS-CoV-2 mRNA ([id number]-huqc-krnej) vax 08/06/21 Recorded SARS-CoV-2 (COVID-19) mRNA BNT-162b2 [...] 06/20/12 Recorde d 1Result Comment: influenza at [facility] 2Location History: [facility] 4Result Comment: [06/19/2016] [facility] 5Result Comment: [06/19/2016] [facility] 6Early/Late Reason: Other : 7Result Comment: [06/19/2016] [facility] 8Result Comment: [06/19/2016] [facility] 9Result Comment: [06/19/2016] [facility] 10Result Comment: [06/19/2016] [facility] Medications albuterol 0.083% inhalation solution 3 mL, Inhalation, Every 6 hours, USE ACAPELLA DEVICE AFTER EVERY TREATMENT., # 360 mL, 5 Refills, [facility] #[id number], 151, cm, 09/29/21 13:12:00 EDT, Height, 61.69, kg, 09/29/21 13:11:00 EDT, Dry Weight Start Date: 11/13/21 Status: Ordered bisoprolol 5 mg oral tablet See Instructions, TAKE 1/2 TABLET DAILY, # 45 tablet, 1 Refills, Maintenance, 09/04/22 16:11:00 EDT, [facility], 150, cm, 08/28/22 9:37:00 EDT, Height, 61, kg, 04/17/22 11:31:00 EST, Dry Weight Start Date: 09/04/22 Status: Ordered clopidogrel 75 mg oral tablet 1, tablet, By Mouth, Daily, # 90 Unknown, Refills 0, Tot. Refills 0, Maintenance, 10/19/22 15:23:00EDT, Route to Pharmacy Electronically, [facility], 150, cm, 08/28/22 9:37:00 EDT, Height, 61, kg, 04/17/22 11:31:00 EST, Dry Weight Start Date: 10/19/22 Status: Ordered Lasix 40 mg oral tablet 1, tablet, By Mouth, Daily, # 90 Unknown, Refills 3, Route to Pharmacy Electronically, [facility], 151, cm, 09/29/21 13:12:00 EDT, Height, 61.69, kg, 09/29/21 13:11:00 EDT, Dry Weight Start Date: 11/05/21 Status: Ordered losartan 25 mg oral tablet See Instructions, TAKE 1/2 TABLET DAILY, # 45 tablet, 1 Refills, Maintenance, 09/04/22 16:13:00 EDT, [facility], 150, cm, 08/28/22 9:37:00 EDT, Height, 61, kg, 04/17/22 11:31:00 EST, Dry Weight Start Date: 09/04/22 Status: Ordered Nebulizer/Compressor See Instructions, # 1 each, Refills 11, Tot. Refills 11, Maintenance, E0570 Nebulizer A7003 Neb Disp Set A7014 Neb non-Disp Filter A7005 Neb Non-Disp set A7015 Aerosol Mask A7013 Neb Disp Filter length of need lifetime 99 months DX COPD J44.9, .. Start Date: 06/27/20 Status: Ordered Pepcid Complete By Mouth, Every 12 hours, 0 Refills, Maintenance, 05/05/21 12:10:00 EST, Partial fill upon patient request if the prescription is for a schedule II opioid drug. Start Date: 05/05/21 Status: Ordered Plavix 75 mg oral tablet 75 mg, 1, tablet, By Mouth, Daily, short term script until pt receives mail order, # 30 tablet, Refills 0, Tot. Refills 0, Maintenance, 12/22/22 10:35:00 EDT, Route to Pharmacy Electronically, [facility] #[id number], Partial fill upon patient req... Start Date: 12/22/22 Status: Ordered ProAir HFA 90 mcg/inh inhalation aerosol with adapter 2, puffs, Inhalation, 4 times a day, PRN, # 1 each, Refills 5, Tot. Refills 5, Maintenance, 10/17/21 15:25:00 EDT, Route to Pharmacy Electronically, [id number], [facility] #[id number], 151, cm, 09/29/21 13:12:00 EDT, Hei... Start Date: 10/17/21 Status: Ordered riluzole 50 mg oral tablet [...] NEBULIZER, # 300 mL, 0 Refills, Maintenance, 11/27/22 15:51:00 EDT, [facility] #[id number], 12, USE 4 ML VIA NEBULIZER TWICE DAILY USE WITH 0.... Start Date: 11/27/22 Status: Ordered traMADol 50 mg oral tablet 1 tablet = 50 mg, By Mouth, Every 12 hours, PRN for pain, # 30 tablet, 2 Refills, Acute 01/21/23 12:24:00 EDT, 11/20/22 12:24:00 EDT, Tablet, [facility] #[id number], Partial fill upon patient request if the prescription is for a schedule II opioi... Start Date: 11/20/22 Stop Date: 01/21/23 Status: Ordered Trelegy Ellipta 200 mcg-62.5 mcg-25 mcg/inh inhalation powder 1 puffs, Inhalation, Daily, at the same time every day, j44.9, # 1 each, 6 Refills, Maintenance, 10/14/22 11:12:00 EDT, Powder, [facility] #[id number], Partial fill upon patient request if the prescription is for a schedule II opioid drug., 1 puf... Start Date: 10/14/22 Status: Ordered Problem List Condition Confirmation Course [...] chart review meeting GFR criteria 6Admission to [facility] for CHF 11/2020. Cardiac MRI: LVEF 44%; 12/16/20 echo at [facility]: LVEF=40-45% 8Per CT w/contrast 12/19/2021: Irregular partially calcified tissue along the distal left main pulmonary artery extending along the regular small caliber left lower lobe pulmonary artery branch probably reflecting chronic thrombus.. [id number]-Ourjrbylo as lung mass. S/P R-CHOP x 6 cycles. Social History Social History Type Response Smoking Status Former smoker entered on: 09/06/14 Sex Patient Care team information Care Team Personnel Name: Francoise Black RN Position: [facility] RN Member Role: Primary Care Nurse Name: Chiqui Stoll RN Position: S RN Member Role: Primary Care Nurse Name: Robert Feliz MD Position: [facility] Physician - Primary Care Member Role: PCP Address: Address: [address] [place] [address]- Care Team Related Persons Name: RAMIRO MARR Address: home [address] [place] [id number]
--- OUTSIDE RECORDS SUMMARY | 2023-08-31 08:12 | XMS_ITS | Continuity of Care Document ---
Author Organization [facility] Address [address] [place] [address]- Care Team Providers Care Autobody Technician Name Role Phone Tray BROWN, Robert Anthony Primary Care Physician Encounter [facility] Date(s): 07/05/19 - 11/02/19 [facility] [address] [place] [address]- [facility] Attending Physician: Ana María BROWN, Ce Simeon Admitting Physician: Ce Gotti MD Referring Physician: Robert Feliz MD Allergies, Adverse Reactions, Alerts Substance Reaction Severity Status codeine Active tetanus toxoid Active sulfa drugs Active Immunizations Given and Recorded Vaccine Date Status Refusal Reason influenza virus vaccine, inactivated 1 02/10/18 Re [...] Recorded 1Location History: [facility] 2Location History: [facility] 3Result Comment: [06/19/2016] ABBY 4Result Comment: [06/19/2016] abby 5Early/Late Reason: Other : 6Result Comment: [06/19/2016] RIVERBEND 7Result Comment: [06/19/2016] riverbend 8Result Comment: [06/19/2016] riverbend 9Result Comment: [06/19/2016] RIVERBEND Medications amoxicillin 500 mg oral capsule 4 capsule = 2,000 mg, By Mouth, Once, take 4 capsules prior to dental procedure, # 4 capsule, 0 Refills, Soft Stop, 10/29/17 13:54:04 EDT Start Date: 10/29/17 Status: Ordered meloxicam 7.5 mg oral tablet 1 tablet = 7.5 mg, By Mouth, Daily, # 90 tablet, 1 Refills, Maintenance, 06/01/19 12:03:00 EST, Tablet, [facility] #[id number], 151, cm, 05/23/19 11:27:00 EST, Height, 65.4, kg, 05/02/18 11:04:00 EST, Dry Weight Start Date: 06/01/19 Status: Ordered MiraLax Powder 1 pack/packet = 17 Gm, By Mouth, PRN Constipation, 0 Refills, Maintenance, 02/11/17 8:35:49 EDT, Powder Start Date: 02/11/17 Status: Ordered Multivitamin Daily, 0 Refills, Maintenance, 10/08/16 7:39:15 Start Date: 10/08/16 Status: Ordered Pepcid AC over the counter Pepcid AC over the counter, Refills 0, Maintenance, 10/08/16 7:39:59, Compound Start Date: 10/08/16 Status: Ordered ProAir HFA 90 mcg/inh inhalation aerosol with adapter 2, puffs, Inhalation, 4 times a day, PRN, # 3 each, Refills 3, Tot. Refills 3, Maintenance, 10/03/18 15:01:00 EDT, Route to Pharmacy Electronically, [id number], [facility] [address], J47.9 Start Date: 10/03/18 Status: Ordered ProAir HFA 90 mcg/inh inhalation aerosol with adapter 2, puffs, Inhalation, 4 times a day, PRN, # 1 each, Refills 6, Tot. Refills 6, Maintenance, 05/17/19 14:49:00 EST, Route to Pharmacy Electronically, [id number], [facility] #[id number], 151, cm, 05/17/19 14:23:00 EST, Hei... Start Date: 05/17/19 Status: Ordered Spiriva Respimat 60 ACT 2.5 mcg/inh inhalation aerosol 2 puffs, Inhalation, Daily, # 3 each, 1 Refills, Maintenance, 06/02/19 11:13:00 EST, [facility], 151, cm, 05/23/19 11:27:00 EST, Height, 65.4, kg, 05/02/18 11:04:00 EST, Dry Weight Start Date: 06/02/19 Status: Ordered Problem List Condition Effective Dates Status Health Status Inform ant COPD (chronic obstructive pu lmonary disease)(Confirmed) Active Disorder of lung(Confirmed) Active Diverticulosis(Confirmed) Active Dysphagia(Confirmed) Active Abnormal echocardiogram(Confirmed) Active COPD with chronic bronchitis(Confirmed) Active History of Clostridium difficile(Confirmed) Active History of B-cell lymphoma(Confirmed) Active Insomnia(Confirmed) Active Lymphoma (clinical)(Confirmed) Active Migraines(Confirmed) Active Osteoarthritis of knee(Confirmed) Active Osteoporosis(Confirmed) Active Social History Social History Type Response Smoking Status Former smoker entered on: 09/06/14 Sex
--- OUTSIDE RECORDS SUMMARY | 2023-08-31 08:12 | XMS_ITS | Continuity of Care Document ---
Author Organization [facility] Address [address] [place] [id number]- Care Team Providers Care Floor Coverings Salesperson Name Role Phone Robert Feliz MD Primary Care Physician [phone] Encounter [facility] [place] Date(s): 01/18/20 - 01/25/20 [facility] [address] [address]- [place] Attending Physician: Mor Diaz MD Admitting Physician: Mro Diaz MD Referring Physician: Robert Feliz MD Allergies, [...] 23-valent vaccine 9 06/20/12 Recorded 1Location History: [facility] 2Location History: [facility] 3Result Comment: [06/19/2016] ABBY 4Result Comment: [06/19/2016] gaylebend 5Early/Late Reason: Other : 6Result Comment: [06/19/2016] ABBY 7Result Comment: [06/19/2016] abby 8Result Comment: [06/19/2016] riverbend 9Result Comment: [06/19/2016] ABBY Medications amoxicillin 500 mg oral capsule 4 capsule = 2,000 mg, By Mouth, Once, take 4 capsules prior to dental procedure, # 4 capsule, 0 Refills, Soft Stop, 12/27/19 12:56:00 EDT, [facility] #[id number], 151, cm, 11/22/19 11:48:00 EDT,Height, 65.4, kg, 05/02/18 11:04:00 EST, Dry Weight Start Date: 12/27/19 Status: Ordered meloxicam 7.5 mg oral tablet 1 tablet = 7.5 mg, By Mouth, Daily, # 90 tablet, 1 Refills, Maintenance, 01/05/20 8:12:00 EDT, Tablet, [facility] #[id number], 151, cm, 11/22/19 11:48:00 EDT, Height, 65.4, kg, 05/02/18 11:04:00EST, Dry Weight Start Date: 01/05/20 Status: Ordered MiraLax Powder 1 pack/packet = [...] 05/17/19 14:49:00 EST, Route to Pharmacy Electronically, [id number], [facility] #[id number], 151, cm, 05/17/19 14:23:00 EST, Hei... Start Date: 05/17/19 Status: Ordered Spiriva Respimat 60 ACT 2.5 mcg/inh inhalation aerosol 2 puffs, Inhalation, Daily, # 3 each, 3 Refills, Maintenance, 11/22/19 12:33:00 EDT, [facility], 151, cm, 11/22/19 11:48:00 EDT, Height, 65.4, kg, 05/02/18 11:04:00 EST, Dry Weight Start Date: 11/22/19 Status: Ordered Problem List Condition Effective Dates Status Health Status Inform ant COPD (chronic obstructive pu lmonary disease)(Confirmed) Active Disorder of lung(Confirmed) Active Diverticulosis(Confirmed) Active Dysphagia(Confirmed) Active Abnormal echocardiogram(Confirmed) Active COPD with chronic bronchitis(Confirmed) Active History of Clostridium difficile(Confirmed) Active History of B-cell lymphoma(Confirmed) Active Insomnia(Confirmed) Active Lymphoma (clinical)(Confirmed) Active Migraines(Confirmed) Active Osteoarthritis of knee(Confirmed) Active Osteoporosis(Confirmed) Active Vital Signs Most recent to oldest [Reference Range]: 1 Height 151 cm (01/18/20 1:42 PM) Weight 65.2 kg (01/18/20 1:42 PM) Oxygen Saturation [94-100 %] 98 % (01/18/20 1:42 PM) Pulse Rate [55-90 bpm] 68 bpm (01/18/20 1:42 PM) Body Mass Index [18.5-24.99] 28.6 *H* (01/18/20 1:42 PM) Blood Pressure [90-138/55-84 mm Hg] 128/ 72mm Hg (01/18/20 1:42 PM) Mode of Delivery (Oxygen) Room air (01/18/20 1:42 PM) Blood pressure sites Arm, right (01/18/20 1:42 PM) Weight Obtained Via Standing scale (01/18/20 1:42 PM) Social History Social History Type Response Smoking Status Former smoker entered on: 09/06/14 Sex
--- OUTSIDE RECORDS SUMMARY | 2023-08-31 08:12 | XMS_ITS | Continuity of Care Document ---
Author Organization [facility] Address [address] [place] [address]- Care Team Providers Care Installations Inspector Name Role Phone Tray BROWN, Robert Anthony Primary Care Physician Encounter [facility] [place] Date(s): 12/16/21 - 01/15/22 [facility] Adult [address] [place] [address]- Allergies, Adverse Reactions, Alerts Substance Reaction Severity Status codeine Active tetanus toxoid Active sulfa drugs Active Immunizations Given and Recorded Vaccine Date Status Refusal Reason SARS-CoV-2 mRNA (vnlpmob-nelx-zquyn) vax 08/06/21 Recorded SARS-CoV-2 (COVID-19) mRNA BNT-162b2 [...] vaccine 9 06/20/12 Recorded 1Location History: [facility] 2Location History: [facility] 3Result Comment: [06/19/2016] R[facility]END 4Result Comment: [06/19/2016] riverbend 5Early/Late Reason: Other : 6Result Comment: [06/19/2016] RIVERBEND 7Result Comment: [06/19/2016] riverbend 8Result Comment: [06/19/2016] riverbend 9Result Comment: [06/19/2016] RIVERBEND Medications albuterol 0.083% inhalation solution 3 mL, Inhalation, Every 6 hours, USE ACAPELLA DEVICE AFTER EVERY TREATMENT., # 360 mL, 5 Refills, [facility] #[id number], 151, cm, 09/29/21 13:12:00 EDT, Height, 61.69, [...] Unknown, Refills 3, Route to Pharmacy Electronically, [facility], 151, cm, 09/29/21 13:12:00 EDT, Height, 61.69, kg, 09/29/21 13:11:00 EDT, Dry Weight Start Date: 11/05/21 Status: Ordered Hyper-Don 7% inhalation solution 4 mL = 0.28 Gm, Neb, 2 times a day, take with 0.5ml = 2.5 mg albuterol (add hypersal 4ml to 0.5ml albuterol) twice a day J47.0, # 720 mL, 1 Refills, Maintenance, 07/28/22 9:58:00 EDT, [facility] #[id number], J47.0 bronchiectasis, 4 mL Neb 2 times... Start Date: 07/28/22 Status: Ordered Lasix 40 mg oral tablet 1, tablet, By Mouth, Daily, # 90 Unknown, Refills 3, [facility], 151, cm, 09/29/21 13:12:00 EDT, Height, 61.69, kg, 09/29/21 13:11:00 EDT, Dry Weight Start Date: 11/05/21 Status: Ordered losartan 25 mg oral tablet 12.5 mg, 0.5, tablet, By Mouth, Daily, Take 0.5 tablet (12.5mg) daily, # 45 tablet, Refills 3, Tot.Refills 3, Maintenance, 06/12/21 13:52:00 EST, Route to Pharmacy Electronically, [facility], 151, cm, 06/11/21 13:48:00 EST, Height [...] 10/17/21 15:25:00 EDT, Route to Pharmacy Electronically, [id number], [facility] #[id number], 151, cm, 09/29/21 13:12:00 EDT, Hei... 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) 4, 5 Active Diarrhea(Confirmed) Active Disorder of lung(Confirmed) Active Diverticulosis(Confirmed) Active Dysphagia(Confirmed) Active Abnormal echocardiogram(Confirmed) Active COPD with chronic bronchitis(Confirmed) Active History of Clostridium difficile(Confirmed) Active Insomnia(Confirmed) Active 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 2Per cardiology presumed secondary to chemotherapy. carotid duplex: TATI 1-49% stenosis; LICA 1-49% stenosis 4Admission to [facility] [place] 11/2020. Cardiac MRI: LVEF 44%; 12/16/20 echo at [facility]: LVEF=40-45% [id number] as lung mass. S/P R-CHOP x 6 cycles. Social History Social History Type Response Smoking Status Former smoker entered on: 09/06/14 Sex Care Team Personnel Name: Robert Feliz MD Address: [address] [place] [address] [place] [address]-
--- OUTSIDE RECORDS SUMMARY | 2023-08-31 08:12 | XMS_ITS | Continuity of Care Document ---
Author Organization [facility] Address [address] [place] [address]- Care Team Providers Care Mobile Sales Expert Name Role Phone Tray BROWN, Robert Anthony Primary Care Physician En[place] [facility] [place] Date(s): 10/21/22 - 11/20/22 [facility] Adult [address] [place] [address]- Allergies, Adverse Reactions, Alerts Substance Reaction Severity Status codeine Active tetanus toxoid Active sulfa drugs Active Fish Active Immunizations Given and Recorded Vaccine Date Status Refusal Reason [id number] 12y+ bivalent booster vax 08/15/22 Recorded Influenza Virus Vaccine (oldterm) 1 02/03/22 Recor ded SARS-CoV-2 mRNA (jugslfu-gtlo-gjywr) vax 08/06/21 Recorded SARS-CoV-2 (COVID-19) mRNA BNT-162b2 [...] 06/20/12 Recorde d 1Result Comment: influenza at [facility] 2Location History: [facility]Location [facility]: [facility] 4Result Comment: [06/19/2016] R[facility] 5Result Comment: [06/19/2016] riverbend 6Early/Late Reason: Other : 7Result Comment: [06/19/2016] RIVERBEND 8Result Comment: [06/19/2016] riverbend 9Result Comment: [06/19/2016] riverbend 10Result Comment: [06/19/2016] RIVERBEND Medications albuterol 0.083% inhalation solution 3 mL, Inhalation, Every 6 hours, USE ACAPELLA DEVICE AFTER EVERY TREATMENT., # 360 mL, 5 Refills, [facility] #[id number], 151, cm, 09/29/21 13:12:00 EDT, Height, 61.69, kg, 09/29/21 13:11:00 EDT, Dry Weight Start Date: 11/13/21 Status: Ordered bisoprolol 5 mg oral tablet See Instructions, TAKE 1/2 TABLET DAILY, # 45 tablet, 1 Refills, Maintenance, 09/04/22 16:11:00 EDT, [facility], 150, cm, 08/28/22 9:37:00 EDT, Height, 61, kg, 04/17/22 11:31:00 EST, Dry Weight Start Date: 09/04/22 Status: Ordered clopidogrel 75 mg oral tablet 1, tablet, By Mouth, Daily, # 90 Unknown, Refills 0, Tot. Refills 0, Maintenance, 10/19/22 15:23:00EDT, Route to Pharmacy Electronically, [facility], 150, cm, 08/28/22 9:37:00 EDT, Height, 61, kg, 04/17/22 11:31:00 EST, Dry Weight Start Date: 10/19/22 Status: Ordered Lasix 40 mg oral tablet 1, tablet, By Mouth, Daily, # 90 Unknown, Refills 3, Route to Pharmacy Electronically, [facility], 151, cm, 09/29/21 13:12:00 EDT, Height, 61.69, kg, 09/29/21 13:11:00 EDT, Dry Weight Start Date: 11/05/21 Status: Ordered losartan 25 mg oral tablet See Instructions, TAKE 1/2 TABLET DAILY, # 45 tablet, 1 Refills, Maintenance, 09/04/22 16:13:00 EDT, [facility], 150, cm, 08/28/22 9:37:00 EDT, [...] 10/17/21 15:25:00 EDT, Route to Pharmacy Electronically, [id number], [facility] #[id number], 151, cm, 09/29/21 13:12:00 EDT, Hei... Start Date: 10/17/21 Status: Ordered Sodium Chloride, Inhalation 0.9% inhalation solution See Instructions, USE 4 ML VIA NEBULIZER TWICE DAILY USE WITH 0.5% VIA INHALER SOLUTION TOGETHER INVIA NEBULIZER, # 300 mL, 0 Refills, Maintenance, 04/28/22 9:38:00 EST, [facility] #[id number],25, USE 4 ML VIA NEBULIZER TWICE DAILY USE WITH 0.5... Start Date: 04/28/22 Status: Ordered traMADol 50 mg oral tablet 1 tablet = 50 mg, By Mouth, Every 12 hours, PRN for pain, # 30 tablet, 2 Refills, Acute 01/21/23 12:24:00 EDT, 11/20/22 12:24:00 EDT, Tablet, [facility] #[id number], Partial fill upon patient request if the prescription is for a schedule II opioi... Start Date: 11/20/22 Stop Date: 01/21/23 Status: Ordered Trelegy Ellipta 200 mcg-62.5 mcg-25 mcg/inh inhalation powder 1 puffs, Inhalation, Daily, at the same time every day, j44.9, # 1 each, 6 Refills, Maintenance, 10/14/22 11:12:00 EDT, Powder, [facility] #[id number], Partial fill upon patient request if the [...] chart review meeting GFR criteria 6Admission [place] [facility] [place]2020. Cardiac MRI: LVEF 44%; 12/16/20 echo at [facility] [place]: LVEF=40-45% 8Per CT w/contrast 12/19/2021: Irregular partially calcified tissue along the distal left main pulmonary artery extending along the regular small caliber left lower lobe pulmonary artery branch probably reflecting chronic thrombus.. [id number]-[id number] as lung mass. S/P R-CHOP x 6 cycles. Social History Social History Type Response Smoking Status Former smoker entered on: 09/06/14 Sex Patient Care team information Care Team Personnel Name: Francoise Black RN Position: [facility] RN Member Role: Primary Care Nurse Name: Chiqui Stoll RN Position: [facility] RN Member Role: Primary Care Nurse Name: Robert Feliz MD Position: [facility] Physician - Primary Care Member Role: PCP Address: Address: [address] [place] [address]- Care Team Related Persons Name: RAMIRO MARR Address: home [address] [place] [address]
--- OUTSIDE RECORDS SUMMARY | 2023-08-31 08:12 | XMS_ITS | Continuity of Care Document ---
Author Organization [facility] Address [address] [address]- Care Team Providers Care County Home Demonstration Agent Name Role Phone Tray BROWN, Robert Anthony Primary Care Physician [phone] Encounter [facility] [place] Date(s): 07/20/19 - 07/30/19 [facility] [address] [address]- [place] Attending Physician: Adithya Sheth Admitting Physician: AdmAdithya de la torre Referring Physician: AdmtrAdithya Allergies, Adverse Reactions, Alerts [...] 8Result Comment: [06/19/2016] riverbend 9Result Comment: [06/19/2016] RIVERRIKKI Medications amoxicillin 500 mg oral capsule 4 capsule = 2,000 mg, By Mouth, Once, take 4 capsules prior to dental procedure, # 4 capsule, 0 Refills, Soft Stop, 10/29/17 13:54:04 EDT Start Date: 10/29/17 Status: Ordered meloxicam 7.5 mg oral tablet 1 tablet = 7.5 mg, By Mouth, Daily, # 90 tablet, 1 Refills, Maintenance, 06/01/19 12:03:00 EST, Tablet, [facility] #[id number], 151, cm, 05/23/19 11:27:00 EST, Height, 65.4, [...] 10/03/18 15:01:00 EDT, Route to Pharmacy Electronically, [id number], [facility] [address], J47.9 Start Date: 10/03/18 Status: Ordered ProAir HFA 90 mcg/inh inhalation aerosol with adapter 2, puffs, Inhalation, 4 times a day, PRN, # 1 each, Refills 6, Tot. Refills 6, Maintenance, 05/17/19 14:49:00 EST, Route to Pharmacy Electronically, [id number], [facility] #[id number], 151, cm, 05/17/19 14:23:00 EST, Hei... Start [...]
--- OUTSIDE RECORDS SUMMARY | 2023-08-31 08:12 | XMS_ITS | Continuity of Care Document ---
Author Organization [facility] Address [address] [place] [address]- Care Team Providers Care Head Of Sales Name Role Phone Tray BROWN, Robert Anthony Primary Care Physician Encounter [facility] [place] Date(s): 12/19/21 - 01/18/22 [facility] Adult [address] [place] [address]- Allergies, Adverse Reactions, Alerts Substance Reaction Severity Status codeine Active tetanus toxoid Active sulfa drugs Active Immunizations Given and Recorded Vaccine Date Status Refusal Reason SARS-CoV-2 mRNA (zfhrltu-anem-bqyqd) vax 08/06/21 Recorded SARS-CoV-2 (COVID-19) mRNA BNT-162b2 [...] vaccine 9 06/20/12 Recorded 1Location History: [facility] 2Location History: [facility] 3Result Comment: [06/19/2016] [facility] 4Result Comment: [06/19/2016] riverbend 5Early/Late Reason: Other : 6Result Comment: [06/19/2016] R[facility] 7Result Comment: [06/19/2016] riverbend 8Result Comment: [06/19/2016] riverbend 9Result Comment: [06/19/2016] RIVERBEND Medications albuterol 0.083% inhalation solution 3 mL, Inhalation, Every 6 hours, USE ACAPELLA DEVICE AFTER EVERY TREATMENT., # 360 mL, 5 Refills, [facility] #[id number], 151, cm, 09/29/21 13:12:00 EDT, Height, 61.69, [...] Unknown, Refills 3, Route to Pharmacy Electronically, [facility], 151, cm, 09/29/21 13:12:00 EDT, Height, 61.69, kg, 09/29/21 13:11:00 EDT, Dry Weight Start Date: 11/05/21 Status: Ordered Hyper-Don 7% inhalation solution 4 mL = 0.28 Gm, Neb, 2 times a day, take with 0.5ml = 2.5 mg albuterol (add hypersal 4ml to 0.5ml albuterol) twice a day J47.0, # 720 mL, 1 Refills, Maintenance, 07/28/22 9:58:00 EDT, [facility] #[id number], J47.0 bronchiectasis, 4 mL Neb 2 times... Start Date: 07/28/22 Status: Ordered Lasix 40 mg oral tablet 1, tablet, By Mouth, Daily, # 90 Unknown, Refills 3, [facility] to [facility]ically, [facility], 151, cm, 09/29/21 13:12:00 EDT, Height, 61.69, kg, 09/29/21 13:11:00 EDT, Dry Weight Start Date: 11/05/21 Status: Ordered losartan 25 mg oral tablet 12.5 mg, 0.5, tablet, By Mouth, Daily, Take 0.5 tablet (12.5mg) daily, # 45 tablet, Refills 3, Tot.Refills 3, Maintenance, 06/12/21 13:52:00 EST, Route to Pharmacy Electronically, [facility], 151, cm, 06/11/21 13:48:00 EST, Height [...] 10/17/21 15:25:00 EDT, Route to Pharmacy Electronically, [id number], [facility] #[id number], 151, cm, 09/29/21 13:12:00 EDT, Hei... Start Date: 10/17/21 Status: Ordered Sodium Chloride, Inhalation 0.9% inhalation solution 4 mL = 0.036 Gm, Neb, 2 times a day, use with 0.5% albuterol solution together in nebulizer, # 240 mL, 6 Refills, Maintenance, 06/12/21 19:39:00 EST, [facility] #[id number], Partial fill upon patient request if the [...] 1-49% stenosis; LICA 1-49% stenosis 4[place] [facility] [place] Cardiac MRI: LVEF 44%; 12/16/20 [place] [facility] LVEF=40-45% [id number]-Orhztzkos as lung mass. S/P R-CHOP x 6 cycles. Social History Social History Type Response Smoking Status Former smoker entered on: 09/06/14 Sex Care Team Personnel Name: Robert Feliz MD Address: [address] [place] [address] [place] [address]-
--- OUTSIDE RECORDS SUMMARY | 2023-08-31 08:12 | XMS_ITS | Continuity of Care Document ---
Author Organization [facility] Riky Zac lt Address [address] [place] [address]- Care Team Providers Care Road Maker Name Role Phone Tray BROWN, Robert Anthony Primary Care Physician Encounter [facility] Date(s): 08/20/21 - 09/19/21 [facility] [place], operated by [facility] Adult [address] [place] [address]- Allergies, Adverse Reactions, Alerts Substance Reaction Severity [...] vaccine 9 06/20/12 Recorded 1Location History: [facility] [place] [facility] 2Location History: [facility] 3Result Comment: [06/19/2016] [facility] 4Result Comment: [06/19/2016] [facility] 5Early/Late Reason: Other : 6Result Comment: [06/19/2016] [place] 7Result Comment: [06/19/2016] [facility]end 8Result Comment: [06/19/2016] [facility]bend 9Result Comment: [06/19/2016] [place] Medications albuterol 0.083% inhalation solution 3 mL, Inhalation, Every 6 hours, USE ACAPELLA DEVICE AFTER EVERY TREATMENT., # 360 mL, 0 Refills, [facility] #[id number], 151, cm, 06/11/21 13:48:00 EST, Height Start Date: 08/18/21 Status: Ordered albuterol 5 mg/mL (0.5%) inhalation solution 0.5 mL = 2.5 mg, Inhalation, Every 6 hours, PRN for wheezing, # 20 mL, 11 Refills, Maintenance, 08/26/21 14:10:00 EDT, Solution, [facility] #[id number], Partial fill upon patient request if the prescription is for a schedule II opioid drug., 151,... Start Date: 08/26/21 Status: Ordered amoxicillin 500 mg oral capsule 4 capsule = 2,000 mg, By Mouth, Once, take 4 capsules prior to dental procedure, # 4 capsule, 5 Refills, Soft Stop, 05/06/21 17:27:00 EST, [facility] #[id number], 151, cm, 05/05/21 12:08:00 EST,Height Start Date: [...] Replace Required Details, [facility] to [facility], 151, cm, 05/05/21 12:08:00 EST, Height Start Date: 05/23/21 Status: Ordered Hyper-Don 7% inhalation solution 4 mL = 0.28 Gm, Neb, 2 times a day, take with 0.5ml = 2.5 mg albuterol (add hypersal 4ml to 0.5ml albuterol) twice a day J47.0, # 720 mL, 1 Refills, Maintenance, 07/28/22 9:58:00 EDT, [facility] #[id number], J47.0 bronchiectasis, 4 mL Neb 2 times... Start Date: 07/28/22 Status: Ordered Hyper-Dno 7% inhalation solution 4 mL = 0.28 Gm, Neb, 2 times a day, take with 0.5ml = 2.5 mg albuterol (add hypersal 4ml to 0.5ml albuterol) twice a day, # 720 mL, 1 Refills, Hard Stop 07/28/22 9:58:00 EDT, 08/02/21 9:58:00 EDT, [facility], J47.0 bronchiectasis, 151, cm,... Start Date: 08/02/21 Stop Date: 07/28/22 Status: Ordered Imodium Capsule 2 mg, By Mouth, Every 4 hours, Refills 0, Maintenance, 05/05/21 12:12:00 EST, Partial fill upon patient request if the prescription is for a schedule II opioid drug. Start Date: 05/05/21 Status: Ordered Lasix 40 mg oral tablet 40 mg, 1, tablet, By Mouth, Daily, prescribed by [facility] doctor 12/18/20, # 90 tablet, Refills [...] 06/12/21 13:52:00 EST, Route to Pharmacy Electronically, [facility], 151, cm, 06/11/21 13:48:00 EST, Height Start Date: 06/12/21 Stop Date: 06/07/22 Status: Ordered meloxicam 7.5 mg oral tablet 1 tablet, By Mouth, Daily, # 90 tablet, 0 Refills, [facility] #[id number], 151, cm, 12/27/20 8:19:00 EDT, Height Start [...] 01/10/21 13:45:00 EDT, Route to Pharmacy Electronically, [facility] #[id number], Partial fill upon patientrequest if the prescription is for a schedule II op... Start Date: 01/10/21 Status: Ordered rosuvastatin 5 mg oral tablet 1 tablet = 5 mg, By Mouth, Daily, # 30 tablet, 5 Refills, Maintenance, 04/08/21 9:24:00 EST, Tablet, [facility] #[id number], 151, cm, 03/07/21 9:27:00 EST, Height Start Date: 04/08/21 Stop Date: 10/05/21 Status: Ordered Sodium Chloride, Inhalation 0.9% inhalation solution 4 mL = 0.036 Gm, Neb, 2 times a day, use with 0.5% albuterol solution together in nebulizer, # 240 mL, 6 Refills, Maintenance, 06/12/21 19:39:00 EST, [facility] #[id number], Partial fill upon patient request if the [...]
--- OUTSIDE RECORDS SUMMARY | 2023-08-31 08:12 | XMS_ITS | Continuity of Care Document ---
Author Organization [facility] Riky Zac Address [address] [place] [address]- Care Team Providers Care Leadite Worker Name Role Phone Tray BROWN, Robert Anthony Primary Care Physician Encounter [facility] Date(s): 12/25/19 - 01/24/20 [facility] Adult [address] [place] [address]- [facility] Allergies, Adverse Reactions, Alerts Substance Reaction Severity [...] Recorded 1Location History: [facility] 2Location History: [facility] 3Result Comment: [06/19/2016] [place] 4Result Comment: [06/19/2016] [facility] 5Early/Late Reason: Other : 6Result Comment: [06/19/2016] [place] 7Result Comment: [06/19/2016] [facility] 8Result Comment: [06/19/2016] [facility] 9Result Comment: [06/19/2016] [place] Medications amoxicillin 500 mg oral capsule 4 capsule = 2,000 mg, By Mouth, Once, take 4 capsules prior to dental procedure, # 4 capsule, 0 Refills, Soft Stop, 12/27/19 12:56:00 EDT, [facility] #[id number], 151, cm, 11/22/19 11:48:00 EDT,Height, 65.4, kg, 05/02/18 11:04:00 EST, Dry Weight Start Date: 12/27/19 Status: Ordered meloxicam 7.5 mg oral tablet 1 tablet = 7.5 mg, By Mouth, Daily, # 90 tablet, 1 Refills, Maintenance, 01/05/20 8:12:00 EDT, Tablet, [facility] #[id number], 151, cm, 11/22/19 11:48:00 EDT, Height, 65.4, [...] 05/17/19 14:49:00 EST, Route to Pharmacy Electronically, [id number], [facility] #[id number], 151, cm, 05/17/19 14:23:00 EST, Hei... Start [...]
--- OUTSIDE RECORDS SUMMARY | 2023-08-31 08:13 | XMS_ITS | Continuity of Care Document ---
Author Organization [facility] Address [address] [place] [address]- Care Team Providers Care Technical Document Writer Name Role Phone Tray BROWN, Robert Anthony Primary Care Physician Encounter [facility] Date(s): 02/28/22 - 03/30/[address] [address]- Allergies, Adverse Reactions, Alerts Substance Reaction Severity Status codeine Active tetanus toxoid Active sulfa drugs Active Immunizations Given and Recorded Vaccine Date Status Refusal Reason Influenza Virus Vaccine (oldterm) 1 02/03/22 Recor ded SARS-CoV-2 mRNA (qsagbte-vvdu-wlopd) vax 08/06/21 Recorded SARS-CoV-2 (COVID-19) mRNA BNT-162b2 [...] 06/20/12 Recorde d 1Result Comment: influenza at [facility] 2Location History: [facility] 3Location History: [facility] 4Result Comment: [06/19/2016] [place] 5Result Comment: [06/19/2016] [facility] 6Early/Late Reason: Other : 7Result Comment: [06/19/2016] [place] 8Result Comment: [06/19/2016] [place] 9Result Comment: [06/19/2016] [facility] 10Result Comment: [06/19/2016] [place] Medications albuterol 0.083% inhalation solution 3 mL, Inhalation, Every 6 hours, USE ACAPELLA DEVICE AFTER EVERY TREATMENT., # 360 mL, 5 Refills, [facility] #[id number], 151, cm, 09/29/21 13:12:00 EDT, Height, 61.69, kg, 09/29/21 13:11:00 EDT, Dry Weight Start Date: 11/13/21 Status: Ordered amoxicillin 500 mg oral capsule 4 capsule = 2,000 mg, By Mouth, Once, take 4 capsules prior to dental procedure, # 4 capsule, 5 Refills, Soft Stop, 03/09/22 6:10:00 EST, [facility] #[id number], 151, cm, 02/11/22 8:43:00 EDT, Height, 61.69, kg, 09/29/21 13:11:00 EDT, Dry Weight Start Date: 03/09/22 Status: Ordered bisoprolol 5 mg oral tablet [...] mL, 1 Refills, Maintenance, 07/28/22 9:58:00 EDT, [facility] #[id number], J47.0 bronchiectasis, 4 mL Neb 2 times... Start Date: 07/28/22 Status: Ordered Lasix 40 mg oral tablet 1, tablet, By Mouth, Daily, # 90 Unknown, Refills 3, Route to Pharmacy Electronically, [facility], 151, cm, 09/29/21 13:12:00 EDT, Height, 61.69, kg, 09/29/21 13:11:00 EDT, Dry Weight Start Date: 11/05/21 Status: Ordered losartan 25 mg oral tablet 12.5 mg, 0.5, tablet, By Mouth, Daily, Take 0.5 tablet (12.5mg) daily, # 45 tablet, Refills 3, Tot.Refills 3, Maintenance, 06/12/21 13:52:00 EST, Route to Pharmacy Electronically, [facility], 151, cm, 06/11/21 13:48:00 EST, Height [...] 10/17/21 15:25:00 EDT, Route to Pharmacy Electronically, [id number], [facility] #[id number], 151, cm, 09/29/21 13:12:00 EDT, Hei... Start Date: 10/17/21 Status: Ordered Sodium Chloride, Inhalation 0.9% inhalation solution 4 mL = 0.036 Gm, Neb, 2 times a day, use with 0.5% albuterol solution together in nebulizer, # 240 mL, 6 Refills, Maintenance, 06/12/21 19:39:00 EST, [facility] #[id number], Partial fill upon patient request if the [...] chart review meeting GFR criteria 5Admission to [facility] for CHF 11/2020. Cardiac MRI: LVEF 44%; 12/16/20 echo at [facility]: LVEF=40-45% [id number]-[id number] as lung mass. S/P R-CHOP x 6 cycles. Social History Social History Type Response Smoking Status Former smoker entered on: 09/06/14 Sex Patient Care team information Care Team Personnel Name: Dodie SPARKS, Chiqui Position: [facility] RN Member Role: Primary Care Nurse Name: Tray BROWN, Robert Anthony Position: [facility] Primary Care Physician Member Role: PCP Address: Address: [address] [place] [phone]- [place] Care Team Related Persons Name: ARMIRO MARR Address: home [address] [place] [id number]
--- OUTSIDE RECORDS SUMMARY | 2023-08-31 08:13 | XMS_ITS | Continuity of Care Document ---
Author Organization [facility] Riky Zac Address [address] [place] [address]- Care Team Providers Care Music Therapist [employer] Name Role Phone Robert Feliz MD Primary Care Physician Encounter [facility] Date(s): 06/16/23 - 06/23/23 [facility] [place] [facility] [address] [place] [address]- Encounter Diagnosis Right knee pain(Discharge Diagnosis) - 06/16/23 ALS (amyotrophic lateral sclerosis)(Discharge Diagnosis) - 06/18/23 Cardiomyopathy, nonischemic-LVEF 45-50%(Discharge Diagnosis) - 06/18/23 Attending Physician: Robert Feliz MD Allergies, Adverse Reactions, [...] virus vaccine, inactivated 6 02/09/12 Re corded [id number] 12y+ bivalent booster vax 08/15/22 Recorded Influenza Virus Vaccine (oldterm) 7 02/03/22 Recor ded SARS-CoV-2 mRNA (nmgebum-vuwj-qojpx) vax 08/06/21 Recorded SARS-CoV-2 (COVID-19) mRNA BNT-162b2 vac 01/27/21 Recorded SARS-CoV-2 (COVID-19) mRNA BNT-162b2 vac 06/24/20 Given SARS-CoV-2 (COVID-19) mRNA BNT-162b2 vac 06/03/20 Recorded pneumococcal 13-valent vaccine 8 07/29/15 Recorded pneumococcal 13-valent vaccine 9 08/31/12 Recorded Zoster Vaccine Live 08/31/12 Recorded pneumococcal 23-valent vaccine 10 06/20/12 Recorde d 1Location History: [facility] 2Location History: [facility] 3Result Comment: [06/19/2016] [facility] 4Result Comment: [06/19/2016] briind 5Early/Late Reason: Other : 6Result Comment: [06/19/2016] [facility] 7Result Comment: influenza at [facility] 8Result Comment: [06/19/2016] gayle[facility]end 9Result Comment: [06/19/2016] abby 10Result Comment: [06/19/2016] [place] Medications albuterol 0.083% inhalation solution 3 mL, Inhalation, Every 6 hours, USE ACAPELLA DEVICE AFTER EVERY TREATMENT. J44.9, # 360 mL, 5 Refills, 01/18/23 8:59:00 EDT, [facility] #[id number], J44.9, 150, cm, 01/11/23 10:59:00 EDT, Height, [...] Dry Weight Start Date: 02/08/23 Status: Ordered LORazepam 0.5 mg oral tablet 1 tablet = 0.5 mg, By Mouth, 2 times a day, PRN as needed for anxiety or insomnia, # 30 tablet, 1 Refills, Acute 07/22/23 14:14:00 EDT, 06/23/23 14:14:00 EST, Tablet, [facility] #[id number], Partial fillupon patient request if the prescription is for a s... Start Date: 06/23/23 Stop Date: 07/22/23 Status: Ordered losartan 25 mg oral tablet See Instructions, TAKE 1/2 TABLET DAILY, # 45 Unknown, 0 Refills, Maintenance, 02/22/23 7:49:00 EDT, [facility], 150, cm, 01/11/23 10:59:00 EDT, Height, [...] 10/17/21 15:25:00 EDT, Route to Pharmacy Electronically, [id number], [facility] #[id number], 151, cm, 09/29/21 13:12:00 EDT, Hei... Start [...] mL, 5 Refills, Maintenance, 02/11/23 9:46:00 EDT, [facility] #[id number], USE 4 ML VIANEBULIZER TWICE DAILY USE WITH 0.5% TOGETHER IN VIA... Start Date: 02/11/23 Status: Ordered Trelegy Ellipta 200 mcg-62.5 mcg-25 [...] chart review meeting GFR criteria 6[facility] [place] 11/2020. Cardiac MRI: LVEF 44%; 12/16/20 echo at [facility]: LVEF=40-45% 8Per CT w/contrast 12/19/2021: Irregular partially calcified tissue along the distal left main pulmonary artery extending along the regular small caliber left lower lobe pulmonary artery branch probably reflecting chronic thrombus.. [id number]-Riqalzmwu as lung mass. S/P R-CHOP x 6 cycles. Diagnosis Diagnosis Type Effective Dates Health Status Cl inical Service Informant Right knee pain Discharge Diagnosis 06/16/23 ALS (amyotrophic lateral sclerosis) Discharge Diagnosis 06/18/23 Cardiomyopathy, nonischemic-LVEF 45-50% Discharge Diagnosis 06/18/23 Vital Signs Most recent to oldest [Reference Range]: 1 Height 150.0 cm (06/16/23 3:20 PM) Oxygen Saturation [94-100 %] 96 % (06/16/23 3:20 PM) Pulse Rate [55-90 bpm] 70 bpm (06/16/23 3:20 PM) Blood Pressure [90-138/55-84 mm Hg] 104/ 68mm Hg (06/16/23 3:20 PM) Mode of Delivery (Oxygen) Room air (06/16/23 3:20 PM) Blood pressure sites Arm, left (06/16/23 3:20 PM) Social History Social History Type Response Smoking Status Former smoker entered on: 09/06/14 Sex Patient Care team information Care Team Personnel Name: Manuel Mayes MD Position: [facility] Physician - Pulm/Critical Care Member Role: Video News Editor Address: Address: [address] [place] [address] [address] [place] [address]- Name: Kenneth Chowdary MD Position: [facility] Cardiology MD Member Role: Milled Rubber Tender Address: Address: [address] [facility] [place] [address]- [place] Name: Robert Feliz MD Position: [facility] Physician - Primary Care Member Role: PCP Address: Address: [address] [place] [address]- [place] Name: Georgette Silva Position: [facility] Hi Lo Driver Member Role: Ent Physician Name: Epi Turner Member Role: Neurologist Name: Mariposa BROWN, Zi Méndez Position: Reference Physician Member Role: Vp Of Digital Marketing Address: Address: [address] [facility] [place] [address]- [place] Care Team Related Persons Name: RAMIRO MARR Address: home [address] [place] [address]
--- OUTSIDE RECORDS SUMMARY | 2023-08-31 08:13 | XMS_ITS | Continuity of Care Document ---
Author Organization [facility] Zac lt Address [address] [place] [address]- Care Team Providers Care Military Technology Specialist Name Role Phone Tray BROWN, Robert Anthony Primary Care Physician Encounter [facility] [place] Date(s): 06/24/22 - 07/24/22 [facility] Adult [address] [place] [address]- Allergies, Adverse Reactions, Alerts Substance Reaction Severity Status codeine Active Fish Active tetanus toxoid Active sulfa drugs Active Immunizations Given and Recorded Vaccine Date Status Refusal Reason Influenza Virus Vaccine (oldterm) 1 02/03/22 Recor ded SARS-CoV-2 mRNA (jqtpywl-izeb-kvchz) vax 08/06/21 Recorded SARS-CoV-2 (COVID-19) mRNA BNT-162b2 [...] 06/20/12 Recorde d 1Result Comment: influenza at [facility] 2Location History: [facility] 3Location History: [facility] 4Result Comment: [06/19/2016] [facility] 5Result Comment: [06/19/2016] [facility] 6Early/Late Reason: Other : 7Result Comment: [06/19/2016] [place] 8Result Comment: [06/19/2016] [facility]end 9Result Comment: [06/19/2016] [facility] 10Result Comment: [06/19/2016] [place] Medications albuterol 0.083% inhalation solution 3 mL, Inhalation, Every 6 hours, USE ACAPELLA DEVICE AFTER EVERY TREATMENT., # 360 mL, 5 Refills, [facility] #[id number], 151, cm, 09/29/21 13:12:00 EDT, Height, 61.69, [...] 10/17/21 15:25:00 EDT, Route to Pharmacy Electronically, [id number], [facility] #[id number], 151, cm, 09/29/21 13:12:00 EDT, Hei... 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 Cardiac MRI: LVEF 44%; 12/16/20 echo at [facility]: LVEF=40-45% 8Per CT w/contrast 12/19/2021: Irregular partially calcified tissue along the distal left main pulmonary artery extending along the regular small caliber left lower lobe pulmonary artery branch probably reflecting chronic thrombus.. [address]84-Cofotkzly as lung mass. S/P R-CHOP x 6 cycles. Social History Social History Type Response Smoking Status Former smoker entered on: 09/06/14 Sex Patient Care team information Care Team Personnel Name: Francoise Black RN Position: [facility] RN Member Role: Primary Care Nurse Name: Chiqui Stoll RN Position: [facility] RN Member Role: Primary Care Nurse Name: Robert Feliz MD Position: [facility] Primary Care Physician Member Role: PCP Address: Address: [address] [place] [address]- Care Team Related Persons Name: RAMIRO MARR Address: home [address] [place] [address]
--- OUTSIDE RECORDS SUMMARY | 2023-08-31 08:13 | XMS_ITS | Continuity of Care Document ---
Author Organization [facility] Zac lt Address [address] [place] [address]- Care Team Providers Care Change Management Specialist Name Role Phone Tray BROWN, Robert Anthony Primary Care Physician Encounter [facility] Date(s): 12/12/20 - 01/11/21 [facility] Adult [address] [place] [address]- Allergies, Adverse Reactions, Alerts Substance Reaction Severity [...] vaccine 9 06/20/12 Recorded 1Location History: [facility] 2Location History: [facility] 3Result Comment: [06/19/2016] [facility] 4Result Comment: [06/19/2016] [facility]end 5Early/Late Reason: Other : 6Result Comment: [06/19/2016] [facility] 7Result Comment: [06/19/2016] riverbend 8Result Comment: [06/19/2016] riverbend 9Result Comment: [06/19/2016] [place] Medications albuterol 0.083% inhalation solution 3 mL = 2.5 mg, Inhalation, Every 6 hours, use Acapella device after every treatment, # 120 each, 3 Refills, Maintenance, 06/27/20 15:48:00 EST, Solution, [facility] #[id number], 151, cm, 02/05/20 7:35:00 EDT, Height Start Date: 06/27/20 Status: Ordered amoxicillin 500 mg oral capsule 4 capsule = 2,000 mg, By Mouth, Once, take 4 capsules prior to dental procedure, # 4 capsule, 0 Refills, Soft Stop, 08/15/20 16:35:00 EDT, [facility] #[id number], 151, cm, 02/05/20 7:35:00 EDT, Height Start Date: 08/15/20 Status: Ordered Hyper-Don 7% inhalation solution 4 mL = 0.28 Gm, Neb, 2 times a day, take with 0.5ml = 2.5 mg albuterol (add hypersal 4ml to 0.5ml albuterol) twice a day, # 240 mL, 11 Refills, Maintenance, 08/07/20 9:58:00 EDT, [facility]#[id number], J47.0 bronchiectasis, 4 mL Neb 2 times a da... Start Date: 08/07/20 Stop Date: 08/02/21 Status: Ordered Lasix 40 mg oral tablet 40 mg, 1, tablet, By Mouth, Daily, prescribed by [facility] doctor 12/18/20, # 30 tablet, Refills 2, Tot. Refills 2, Maintenance, 01/10/21 13:42:00 EDT, Route to Pharmacy Electronically, [facility] #[id number], Partial fill upon patient request if th... Start Date: 01/10/21 Status: Ordered meloxicam 7.5 mg oral tablet 1 tablet, By Mouth, Daily, # 90 tablet, 0 Refills, [facility] #[id number], 151, cm, 12/27/20 8:19:00 EDT, Height Start Date: 12/27/20 Status: Ordered Nebulizer/Compressor See Instructions, # 1 each, Refills 11, Tot. Refills 11, Maintenance, E0570 Nebulizer A7003 Neb Disp Set A7014 Neb non-Disp Filter A7005 Neb Non-Disp set A7015 Aerosol Mask A7013 Neb Disp Filter length of need lifetime 99 months DX COPD J44.9, ... Start Date: 06/27/20 Status: Ordered Plavix 75 mg oral tablet 75 mg, 1, tablet, By Mouth, Daily, # 30 tablet, Refills 2, Tot. Refills 2, Maintenance, 01/10/21 13:45:00 EDT, Route to Pharmacy Electronically, [facility] #[id number], Partial fill upon patientrequest if the prescription is for a schedule II op... Start Date: 01/10/21 Status: Ordered ProAir HFA 90 mcg/inh inhalation aerosol with adapter 2, puffs, Inhalation, 4 times a day, PRN, # 1 each, Refills 6, Tot. Refills 6, Maintenance, 08/26/20 14:10:00 EDT, Route to Pharmacy Electronically, [id number], [facility] #[id number], 151, cm, 08/26/20 13:26:00 EDT, Height Start Date: 08/26/20 Status: Ordered Trelegy Ellipta 200 mcg-62.5 mcg-25 mcg/inh inhalation powder 1 puffs, Inhalation, Daily, at the same time every day, # 1 each, 6 Refills, Maintenance, 12/06/20 9:31:00 EDT, Powder, [facility] #[id number], Partial fill upon patient request if the [...]
--- OUTSIDE RECORDS SUMMARY | 2023-08-31 08:13 | XMS_ITS | Continuity of Care Document ---
Author Organization [facility] Address [address] [place] [address]- Care Team Providers Care Loop Sewer Name Role Phone Tray BROWN, Robert Anthony Primary Care Physician [place] [facility] [place] 04/12/22 [facility] [address] [place] [address]- Allergies, Adverse Reactions, Alerts Substance Reaction Severity Status codeine Active tetanus toxoid Active sulfa drugs Active Immunizations Given and Recorded Vaccine Date Status Refusal Reason Influenza Virus Vaccine (oldterm) 1 02/03/22 Recor ded SARS-CoV-2 mRNA (bdssdha-ipyb-facpj) vax 08/06/21 Recorded SARS-CoV-2 (COVID-19) mRNA BNT-162b2 [...] Recorde d 1Result Comment: influenza at [facility] 2Location History: [facility] 3Location History: [facility] 4Result Comment: [06/19/2016] [facility] 5Result Comment: [06/19/2016] [facility] 6Early/Late Reason: Other : 7Result Comment: [06/19/2016] [place] 8Result Comment: [06/19/2016] [facility] 9Result Comment: [06/19/2016] [facility] 10Result Comment: [06/19/2016] [place] Medications albuterol 0.083% inhalation solution 3 mL, Inhalation, Every 6 hours, USE ACAPELLA DEVICE AFTER EVERY TREATMENT., # 360 mL, 5 Refills, [facility] #[id number], 151, cm, 09/29/21 13:12:00 EDT, Height, 61.69, kg, 09/29/21 13:11:00 EDT, Dry Weight Start Date: 11/13/21 Status: Ordered amoxicillin 500 mg oral capsule 4 capsule = 2,000 mg, By Mouth, Once, take 4 capsules prior to dental procedure, # 4 capsule, 5 Refills, Soft Stop, 03/09/22 6:10:00 EST, [facility] #[id number], 151, cm, 02/11/22 8:43:00 EDT, Height, 61.69, kg, 09/29/21 13:11:00 EDT, Dry Weight Start Date: 03/09/22 Status: Ordered Azithromycin 5 Day Dose Pack 250 mg oral tablet See Instructions, as directed on package labeling, # 6 tablet, 0 Refills, Maintenance, 04/08/22 10:23:00 EST, Tablet, [facility] #[id number], Partial fill upon patient request if the prescription is for a schedule II opioid drug., 151, cm, ... Start Date: 04/08/22 Status: Ordered bisoprolol 5 mg oral tablet [...] mL, 1 Refills, Maintenance, 07/28/22 9:58:00 EDT, [facility] #[id number], J47.0 bronchiectasis, 4 mL Neb 2 times... Start Date: 07/28/22 Status: Ordered Lasix 40 mg oral tablet 1, tablet, By Mouth, Daily, # 90 Unknown, Refills 3, Route to Pharmacy Electronically, [facility], 151, cm, 09/29/21 13:12:00 EDT, Height, 61.69, kg, 09/29/21 13:11:00 EDT, Dry Weight Start Date: 11/05/21 Status: Ordered losartan 25 mg oral tablet 12.5 mg, 0.5, tablet, By Mouth, Daily, Take 0.5 tablet (12.5mg) daily, # 45 tablet, Refills 3, Tot.Refills 3, Maintenance, 06/12/21 13:52:00 EST, Route to Pharmacy Electronically, [facility], 151, cm, 06/11/21 13:48:00 [...] opioid drug. Start Date: 05/05/21 Status: Ordered predniSONE 10 mg oral tablet See Instructions, 30mg x 3 days, then 20mg x3 days, then 10mg x 3 days, then stop, # 18 tablet, 0 Refills, Acute 05/02/22 10:23:00 EST, 04/08/22 10:23:00 EST, [facility] #[id number], Partial fill upon patient request if the prescription is for a... Start Date: 04/08/22 Stop Date: 05/02/22 Status: Ordered ProAir HFA 90 mcg/inh inhalation aerosol with adapter 2, puffs, Inhalation, 4 times a day, PRN, # 1 each, Refills 5, Tot. Refills 5, Maintenance, 10/17/21 15:25:00 EDT, Route to Pharmacy Electronically, [id number], [facility] #[id number], 151, cm, 09/29/21 13:12:00 EDT, Hei... Start Date: 10/17/21 Status: Ordered Sodium Chloride, Inhalation 0.9% inhalation solution 4 mL = 0.036 Gm, Neb, 2 times a day, use with 0.5% albuterol solution together in nebulizer, # 240 mL, 6 Refills, Maintenance, 06/12/21 19:39:00 EST, [facility] #[id number], Partial fill upon patient request if the [...] chart review meeting GFR criteria 5Admission to [facility] [place] for [place] 11/2020. Cardiac MRI: LVEF 44%; 12/16/20 echo at [facility]: LVEF=40-45% [id number] as lung mass. S/P R-CHOP x 6 cycles. Social History Social History Type Response Smoking Status Former smoker entered on: 09/06/14 Sex Patient Care team information Care Team Personnel Name: Francoise Black RN Position: S RN Member Role: Primary Care Nurse Name: Chiqui Stoll RN Position: S RN Member Role: Primary Care Nurse Name: Robert Feliz MD Position: [facility] Primary Care Physician Member Role: PCP Address: Address: [address] [place] [address]- Care Team Related Persons Name: RAMIRO MARR Address: home [address] [place] [id number]
--- OUTSIDE RECORDS SUMMARY | 2023-08-31 08:13 | XMS_ITS | Continuity of Care Document ---
Author Organization [facility] Address [address] [place] [address]- Care Team Providers Care Rubber Press Operator Name Role Phone Robert Feliz MD Primary Care Physician [phone] Encounter [facility] [place] [place] [id number] Date(s): 09/25/22 - 12/26/22 [facility] [address] [place] [address]- Attending Physician: Emilie Reynolds NP Admitting Physician: Emilie Reynolds NP Referring Physician: Robert Feliz MD Allergies, Adverse Reactions, Alerts Substance Reaction Severity Status codeine Active tetanus toxoid Active sulfa drugs Active Fish Active Immunizations Given and Recorded Vaccine Date Status Refusal Reason [id number] 12y+ bivalent booster vax 08/15/22 Recorded Influenza Virus Vaccine (oldterm) 1 02/03/22 Recor ded SARS-CoV-2 mRNA (ocdrbsv-umhx-thpjj) vax 08/06/21 Recorded SARS-CoV-2 (COVID-19) mRNA BNT-162b2 [...] 06/20/12 Recorde d 1Result Comment: influenza at [facility] 2Location History: [facility] 3Location History: [facility] 4Result Comment: [06/19/2016] [facility] 5Result Comment: [06/19/2016] [facility] 6Early/Late Reason: Other : 7Result Comment: [06/19/2016] [facility] 8Result Comment: [06/19/2016] [facility] 9Result Comment: [06/19/2016] [facility] 10Result Comment: [06/19/2016] [place] Medications albuterol 0.083% inhalation solution 3 mL, Inhalation, Every 6 hours, USE ACAPELLA DEVICE AFTER EVERY TREATMENT., # 360 mL, 5 Refills, [facility] #[id number], 151, cm, 09/29/21 13:12:00 EDT, Height, 61.69, kg, 09/29/21 13:11:00 EDT, Dry Weight Start Date: 11/13/21 Status: Ordered bisoprolol 5 mg oral tablet See Instructions, TAKE 1/2 TABLET DAILY, # 45 tablet, 1 Refills, Maintenance, 09/04/22 16:11:00 EDT, [facility], 150, cm, 08/28/22 9:37:00 EDT, Height, 61, kg, 04/17/22 11:31:00 EST, Dry Weight Start Date: 09/04/22 Status: Ordered clopidogrel 75 mg oral tablet 1, tablet, By Mouth, Daily, # 90 Unknown, Refills 0, Tot. Refills 0, Maintenance, 10/19/22 15:23:00EDT, Route to Pharmacy Electronically, [facility], 150, cm, 08/28/22 9:37:00 EDT, Height, 61, kg, 04/17/22 11:31:00 EST, Dry Weight Start Date: 10/19/22 Status: Ordered Lasix 40 mg oral tablet 1, tablet, By Mouth, Daily, # 90 Unknown, Refills 3, Route to Pharmacy Electronically, [facility], 151, cm, 09/29/21 13:12:00 EDT, Height, 61.69, kg, 09/29/21 13:11:00 EDT, Dry Weight Start Date: 11/05/21 Status: Ordered losartan 25 mg oral tablet See Instructions, TAKE 1/2 TABLET DAILY, # 45 tablet, 1 Refills, Maintenance, 09/04/22 16:13:00 EDT, [facility], 150, cm, 08/28/22 9:37:00 EDT, [...] 12/22/22 10:35:00 EDT, Route to Pharmacy Electronically, [facility] #[id number], Partial fill upon patient req... Start Date: 12/22/22 Status: Ordered ProAir HFA 90 mcg/inh inhalation aerosol with adapter 2, puffs, Inhalation, 4 times a day, PRN, # 1 each, Refills 5, Tot. Refills 5, Maintenance, 10/17/21 15:25:00 EDT, Route to Pharmacy Electronically, [id number], [facility] #[id number], 151, cm, 09/29/21 13:12:00 EDT, Hei... Start [...] mL, 0 Refills, Maintenance, 11/27/22 15:51:00 EDT, [facility] #[id number], 12, USE 4 ML VIA NEBULIZER TWICE DAILY USE WITH 0.... Start Date: 11/27/22 Status: Ordered traMADol 50 mg oral tablet 1 tablet = 50 mg, By Mouth, Every 12 hours, PRN for pain, # 30 tablet, 2 Refills, Acute 01/21/23 12:24:00 EDT, 11/20/22 12:24:00 EDT, Tablet, [facility] #[id number], Partial fill upon patient request if the prescription is for a schedule II opioi... Start Date: 11/20/22 Stop Date: 01/21/23 Status: Ordered Trelegy Ellipta 200 mcg-62.5 mcg-25 mcg/inh inhalation powder 1 puffs, Inhalation, Daily, at the same time every day, j44.9, # 1 each, 6 Refills, Maintenance, 10/14/22 11:12:00 EDT, Powder, [facility] #[id number], Partial fill upon patient request if the [...] cardiology presumed secondary to chemotherapy. carotid duplex: TTAI 1-49% stenosis; LICA 1-49% stenosis 5Per chart review meeting GFR criteria 6[place] [facility]. Cardiac MRI: LVEF 44%; 12/16/20 [place] [facility] LVEF=40-45% 8Per CT w/contrast 12/19/2021: Irregular partially calcified tissue along the distal left main pulmonary artery extending along the regular small caliber left lower lobe pulmonary artery branch probably reflecting chronic thrombus.. 18716-Plactarns as lung mass. S/P R-CHOP x 6 cycles. Social History Social History Type Response Smoking Status Former smoker entered on: 09/06/14 Sex Patient Care team information Care Team Personnel Name: Francoise Black RN Position: [facility] RN Member Role: Primary Care Nurse Name: Chiqui Stoll RN Position: S RN Member Role: Primary Care Nurse Name: Robert Feliz MD Position: [facility] Physician - Primary Care Member Role: PCP Address: Address: [address] [place] [address]- Care Team Related Persons Name: RAMIRO MARR Address: home [address] [place] [id number]
--- OUTSIDE RECORDS SUMMARY | 2023-08-31 08:13 | XMS_ITS | Continuity of Care Document ---
Author Organization [facility] Address [address] [place] [address]- Care Team Providers Care Business Intelligence Analyst Name Role Phone Robert Feliz MD Primary Care Physician [id number] Date(s): 02/22/21 - 03/30/[address] [address] Attending Physician: Robert Feliz MD Admitting Physician: Robert Feliz MD Allergies, Adverse Reactions, [...] 3 Refills, Maintenance, 06/27/20 15:48:00 EST, Solution, [facility] #[id number], 151, cm, 02/05/20 7:35:00 EDT, Height Start Date: 06/27/20 Status: Ordered amoxicillin 500 mg oral capsule 4 capsule = 2,000 mg, By Mouth, Once, take 4 capsules prior to dental procedure, # 4 capsule, 0 Refills, Soft Stop, 08/15/20 16:35:00 EDT, [facility] #[id number], 151, cm, 02/05/20 7:35:00 EDT, Height Start Date: 08/15/20 Status: Ordered Hyper-Don 7% inhalation solution 4 mL = 0.28 Gm, Neb, 2 times a day, take with 0.5ml = 2.5 mg albuterol (add hypersal 4ml to 0.5ml albuterol) twice a day, # 240 mL, 11 Refills, Maintenance, 08/07/20 9:58:00 EDT, [facility]#[id number], J47.0 bronchiectasis, 4 mL Neb 2 times a da... Start Date: 08/07/20 Stop Date: 08/02/21 Status: Ordered Lasix 40 mg oral tablet 40 mg, 1, tablet, By Mouth, Daily, prescribed by [facility] doctor 12/18/20, # 30 tablet, Refills 2, Tot. Refills 2, Maintenance, 01/10/21 13:42:00 EDT, Route to Pharmacy Electronically, [facility] #[id number], Partial fill upon patient request if th... Start Date: 01/10/21 Status: Ordered losartan 25 mg oral tablet 12.5 mg, 0.5, tablet, By Mouth, Daily, Take 0.5 tablet (12.5mg) daily, # 15 tablet, Refills 11, Tot. Refills 11, Maintenance, 02/05/21 8:59:00 EDT, Route to Pharmacy Electronically, [facility] #[id number], Partial fill upon patient request if the... Start Date: 02/05/21 Status: Ordered meloxicam 7.5 mg oral tablet 1 tablet, By Mouth, Daily, # 90 tablet, 0 Refills, [facility] #[id number], 151, cm, 12/27/20 8:19:00 EDT, Height Start [...] 01/10/21 13:45:00 EDT, Route to Pharmacy Electronically, [facility] #[id number], Partial fill upon patientrequest if the prescription is for a schedule II op... Start Date: 01/10/21 Status: Ordered ProAir HFA 90 mcg/inh inhalation aerosol with adapter 2, puffs, Inhalation, 4 times a day, PRN, # 1 each, Refills 6, Tot. Refills 6, Maintenance, 08/26/20 14:10:00 EDT, Route to Pharmacy Electronically, [id number], [facility] #[id number], 151, cm, 08/26/20 13:26:00 EDT, Height Start Date: 08/26/20 Status: Ordered rosuvastatin 5 mg oral capsule 1 capsule = 5 mg, By Mouth, Daily, # 30 capsule, 6 Refills, Maintenance, 03/28/21 16:12:00 EST, Capsule, [facility] #[id number], Partial fill upon patient request if the prescription is for a schedule II opioid drug., 151, cm, 03/07/21 9:27:00 ES... Start Date: 03/28/21 Status: Ordered Trelegy Ellipta 200 mcg-62.5 mcg-25 mcg/inh inhalation powder 1 puffs, Inhalation, Daily, at the same time every day, # 1 each, 6 Refills, Maintenance, 12/06/20 9:31:00 EDT, Powder, [facility] #[id number], Partial fill upon patient request if the [...]
--- OUTSIDE RECORDS SUMMARY | 2023-08-31 08:13 | XMS_ITS | Continuity of Care Document ---
Author Organization [facility] Address [address] [place] [address]- Care Team Providers Care Billboard Poster Helper Name Role Phone Tray BROWN, Robert Anthony Primary Care Physician Encounter [facility] [place] Date(s): 08/11/21 - 09/10/21 [facility] [address] [place] [address]- Allergies, Adverse Reactions, Alerts Substance Reaction Severity [...] EVERY TREATMENT., # 360 mL, 0 Refills, [facility] #[id number], 151, cm, 06/11/21 13:48:00 EST, Height Start Date: 08/18/21 Status: Ordered albuterol 5 mg/mL (0.5%) inhalation solution 0.5 mL = 2.5 mg, Inhalation, Every 6 hours, PRN for wheezing, # 20 mL, 11 Refills, Maintenance, 08/26/21 14:10:00 EDT, Solution, [facility] #[id number], Partial fill upon patient request if the prescription is for a schedule II opioid drug., 151,... Start Date: 08/26/21 Status: Ordered amoxicillin 500 mg oral capsule 4 capsule = 2,000 mg, By Mouth, Once, take 4 capsules prior to dental procedure, # 4 capsule, 5 Refills, Soft Stop, 05/06/21 17:27:00 EST, [facility] #[id number], 151, cm, 05/05/21 12:08:00 EST,Height Start Date: [...] Replace Required Details, Route to Pharmacy Electronically, [facility], 151, cm, 05/05/21 12:08:00 EST, Height Start Date: 05/23/21 Status: Ordered Hyper-Don 7% inhalation solution 4 mL = 0.28 Gm, Neb, 2 times a day, take with 0.5ml = 2.5 mg albuterol (add hypersal 4ml to 0.5ml albuterol) twice a day J47.0, # 720 mL, 1 Refills, Maintenance, 07/28/22 9:58:00 EDT, [facility] #[id number], J47.0 bronchiectasis, 4 mL Neb 2 times... Start Date: 07/28/22 Status: Ordered Hyper-Don 7% inhalation solution 4 mL = 0.28 Gm, Neb, 2 times a day, take with 0.5ml = 2.5 mg albuterol (add hypersal 4ml to 0.5ml albuterol) twice a day, # 720 mL, 1 Refills, Hard Stop 07/28/22 9:58:00 EDT, 08/02/21 9:58:00 EDT, [facility], J47.0 bronchiectasis, 151, cm,... Start Date: 08/02/21 Stop Date: 07/28/22 Status: Ordered Imodium Capsule 2 mg, By Mouth, Every 4 hours, Refills 0, Maintenance, 05/05/21 12:12:00 EST, Partial fill upon patient request if the prescription is for a schedule II opioid drug. Start Date: 05/05/21 Status: Ordered Lasix 40 mg oral tablet 40 mg, 1, tablet, By Mouth, Daily, prescribed by [facility] [place] 12/18/20, # 90 tablet, Refills [...] 06/12/21 13:52:00 EST, [facility], 151, cm, 06/11/21 13:48:00 EST, Height Start Date: 06/12/21 Stop Date: 06/07/22 Status: Ordered meloxicam 7.5 mg oral tablet 1 tablet, By Mouth, Daily, # 90 tablet, 0 Refills, [facility] #[id number], 151, cm, 12/27/20 8:19:00 EDT, Height Start [...] 01/10/21 13:45:00 EDT, Route to Pharmacy Electronically, [facility] #[id number], Partial fill upon patientrequest if the prescription is for a schedule II op... Start Date: 01/10/21 Status: Ordered rosuvastatin 5 mg oral tablet 1 tablet = 5 mg, By Mouth, Daily, # 30 tablet, 5 Refills, Maintenance, 04/08/21 9:24:00 EST, Tablet, [facility] #[id number], 151, cm, 03/07/21 9:27:00 EST, Height Start Date: 04/08/21 Stop Date: 10/05/21 Status: Ordered Sodium Chloride, Inhalation 0.9% inhalation solution 4 mL = 0.036 Gm, Neb, 2 times a day, use with 0.5% albuterol solution together in nebulizer, # 240 mL, 6 Refills, Maintenance, 06/12/21 19:39:00 EST, [facility] #[id number], Partial fill upon patient request if the [...]
--- OUTSIDE RECORDS SUMMARY | 2023-08-31 08:13 | XMS_ITS | Continuity of Care Document ---
Author Organization [facility] Address [address] [place] [address]- Care Team Providers Care Ceramic Chemist Name Role Phone Tray BROWN, Robert Anthony Primary Care Physician Encounter [facility] Date(s): 01/30/22 - 03/01/22 [facility] [address] [place] [address]- [place] Allergies, Adverse Reactions, Alerts Substance Reaction Severity Status codeine Active tetanus toxoid Active sulfa drugs Active Immunizations Given and Recorded Vaccine Date Status Refusal Reason Influenza Virus Vaccine (oldterm) 1 02/03/22 Recor ded SARS-CoV-2 mRNA (drliwfr-pcwx-ifwqf) vax 08/06/21 Recorded SARS-CoV-2 (COVID-19) mRNA BNT-162b2 [...] 06/20/12 Recorde d 1Result Comment: influenza at [facility] 2Location History: [facility] 3Location History: [facility] 4Result Comment: [06/19/2016] [facility] 5Result Comment: [06/19/2016] [facility] 6Early/Late Reason: Other : 7Result Comment: [06/19/2016] [place] 8Result Comment: [06/19/2016] [facility] 9Result Comment: [06/19/2016] [facility] 10Result Comment: [06/19/2016] [place] Medications albuterol 0.083% inhalation solution 3 mL, Inhalation, Every 6 hours, USE ACAPELLA DEVICE AFTER EVERY TREATMENT., # 360 mL, 5 Refills, [facility][id number], 151, cm, 09/29/21 13:12:00 EDT, Height, 61.69, [...] Unknown, Refills 3, Route to Pharmacy Electronically, [facility], 151, cm, 09/29/21 13:12:00 EDT, Height, 61.69, kg, 09/29/21 13:11:00 EDT, Dry Weight Start Date: 11/05/21 Status: Ordered Hyper-Don 7% inhalation solution 4 mL = 0.28 Gm, Neb, 2 times a day, take with 0.5ml = 2.5 mg albuterol (add hypersal 4ml to 0.5ml albuterol) twice a day J47.0, # 720 mL, 1 Refills, Maintenance, 07/28/22 9:58:00 EDT, [facility] #[id number], J47.0 bronchiectasis, 4 mL Neb 2 times... Start Date: 07/28/22 Status: Ordered Lasix 40 mg oral tablet 1, tablet, By Mouth, Daily, # 90 Unknown, Refills 3, [facility]ically, [facility], 151, cm, 09/29/21 13:12:00 EDT, Height, 61.69, kg, 09/29/21 13:11:00 EDT, Dry Weight Start Date: 11/05/21 Status: Ordered losartan 25 mg oral tablet 12.5 mg, 0.5, tablet, By Mouth, Daily, Take 0.5 tablet (12.5mg) daily, # 45 tablet, Refills 3, Tot.Refills 3, Maintenance, 06/12/21 13:52:00 EST, Route to Pharmacy Electronically, [facility], 151, cm, 06/11/21 13:48:00 EST, Height [...] 10/17/21 15:25:00 EDT, Route to Pharmacy Electronically, [id number], [facility] #[id number], 151, cm, 09/29/21 13:12:00 EDT, Hei... Start Date: 10/17/21 Status: Ordered Sodium Chloride, Inhalation 0.9% inhalation solution 4 mL = 0.036 Gm, Neb, 2 times a day, use with 0.5% albuterol solution together in nebulizer, # 240 mL, 6 Refills, Maintenance, 06/12/21 19:39:00 EST, [facility] #[id number], Partial fill upon patient request if the [...] meeting GFR criteria 5[place] [facility] [place]. Cardiac MRI: LVEF 44%; 12/16/20 [place] [facility] LVEF=40-45% [id number]-Asuqrehxs as lung mass. S/P R-CHOP x 6 cycles. Social History Social History Type Response Smoking Status Former smoker entered on: 09/06/14 Sex Patient Care team information Personnel Name: Tray BROWN, Robert Anthony Address: Address: [address] [place] [id number]
--- OUTSIDE RECORDS SUMMARY | 2023-08-31 08:13 | XMS_ITS | Continuity of Care Document ---
Author Organization [facility] Zac lt Address [address] [place] [address]- Care Team Providers Care Stem Processing Machine Operator Name Role Phone Robert Feliz MD Primary Care Physician Encounter [facility] [id number] Date(s): 12/18/21 - 12/25/21 [facility] Adult [address] [place] [address]- Attending Physician: Robert Feliz MD Allergies, Adverse Reactions, Alerts Substance Reaction Severity Status codeine Active tetanus toxoid Active sulfa drugs Active Immunizations Given and Recorded Vaccine Date Status Refusal Reason SARS-CoV-2 mRNA (qsayoqx-sdtz-nbahn) vax 08/06/21 Recorded SARS-CoV-2 (COVID-19) mRNA BNT-162b2 [...] EVERY TREATMENT., # 360 mL, 5 Refills, [facility] #[id number], 151, cm, 09/29/21 13:12:00 EDT, Height, 61.69, kg, 09/29/21 13:11:00 EDT, Dry Weight Start Date: 11/13/21 Status: Ordered bisoprolol 5 mg oral tablet 0.5 tablet = 2.5 mg, By Mouth, Daily, # 45 tablet, 3 Refills, Maintenance, 06/12/21 13:52:00 EST, Tablet, [facility], 151, cm, 06/11/21 13:48:00 EST, Height Start Date: 06/12/21 Stop Date: 06/07/22 Status: Ordered cefdinir 300 mg oral capsule 1 capsule = 300 mg, By Mouth, Every 12 hours, for 7 days, # 14 capsule, 0 Refills, Acute 01/01/22 11:10:00 EDT, 12/25/21 11:10:00 EDT, Capsule, [facility] #[id number], Partial fill upon patient request if the prescription is for a schedule II opi... Start Date: 12/25/21 Stop Date: 01/01/22 Status: Ordered clopidogrel 75 mg oral tablet 1, tablet, By Mouth, Daily, # 90 Unknown, Refills 3, Route to Pharmacy Electronically, [facility], 151, cm, 09/29/21 13:12:00 EDT, Height, 61.69, kg, 09/29/21 13:11:00 EDT, Dry Weight Start Date: 11/05/21 Status: Ordered Hyper-Don 7% inhalation solution 4 mL = 0.28 Gm, Neb, 2 times a day, take with 0.5ml = 2.5 mg albuterol (add hypersal 4ml to 0.5ml albuterol) twice a day J47.0, # 720 mL, 1 Refills, Maintenance, 07/28/22 9:58:00 EDT, [facility] #[id number], J47.0 bronchiectasis, 4 mL Neb 2 times... Start Date: 07/28/22 Status: Ordered Lasix 40 mg oral tablet 1, tablet, By Mouth, Daily, # 90 Unknown, Refills 3, Route to Pharmacy Electronically, [facility], 151, cm, 09/29/21 13:12:00 EDT, Height, 61.69, kg, 09/29/21 13:11:00 EDT, Dry Weight Start Date: 11/05/21 Status: Ordered losartan 25 mg oral tablet 12.5 mg, 0.5, tablet, By Mouth, Daily, Take 0.5 tablet (12.5mg) daily, # 45 tablet, Refills 3, Tot.Refills 3, Maintenance, 06/12/21 13:52:00 EST, Route to Pharmacy Electronically, [facility], 151, cm, 06/11/21 13:48:00 EST, Height [...] 10/17/21 15:25:00 EDT, Route to Pharmacy Electronically, [id number], [facility] #[id number], 151, cm, 09/29/21 13:12:00 EDT, Hei... Start Date: 10/17/21 Status: Ordered Sodium Chloride, Inhalation 0.9% inhalation solution 4 mL = 0.036 Gm, Neb, 2 times a day, use with 0.5% albuterol solution together in nebulizer, # 240 mL, 6 Refills, Maintenance, 06/12/21 19:39:00 EST, [facility] #[id number], Partial fill upon patient request if the [...] ejection fraction LVEF 40-45%(Confirmed) 4, 5 Active Disorder of lung(Confirmed) Active Diverticulosis(Confirmed) Active [...] 1-49% stenosis; LICA 1-49% stenosis 4Admission to [facility] for [place] 11/2020. Cardiac MRI: LVEF 44%; 12/16/20 echo at [facility]: LVEF=40-45% [id number]-[id number] as lung mass. S/P R-CHOP x 6 cycles. Vital Signs Most recent to oldest [Reference Range]: 1 2 Height 151 cm (12/18/21 2:13 PM) 151 cm (12/18/21 2:06 PM) Weight 60.7 kg (12/18/21 2:06 PM) Oxygen Saturation [94-100 %] 96 % (12/18/21 2:06 PM) Pulse Rate [55-90 bpm] 76 bpm (12/18/21 2:06 PM) Body Mass Index [18.5-24.99] 26.62 *H* (12/18/21 2:06 PM) Blood Pressure [90-138/55-84 mm Hg] 101/ 63mm Hg (12/18/21 2:13 PM) 105/65mm Hg (12/18/21 2:06 PM) Temperature [96.8-100.4 DegF] 98.3 DegF (12/18/21 2:06 PM) Mode of Delivery (Oxygen) Room air (12/18/21 2:06 PM) Blood pressure sites Arm, left (12/18/21 2:13 PM) Arm, left (12/18/21 2:06 PM) Temperature Route Oral (12/18/21 2:06 PM) Weight Obtained Via Standing scale (12/18/21 2:06 PM) Social History Social History Type Response Smoking Status Former smoker entered on: 09/06/14 Sex Care Team Personnel Name: Robert Feliz MD Address: [address] [place] [phone]-
--- OUTSIDE RECORDS SUMMARY | 2023-08-31 08:13 | XMS_ITS | Continuity of Care Document ---
Author Organization [facility] Address [address] [place] [address]- Care Team Providers Care Acid Polymerization Operator Name Role Phone Tray BROWN, Robert Anthony Primary Care Physician Encounter [facility] Date(s): 06/27/20 - 07/27/20 [facility] [address] [place] [address] Allergies, Adverse Reactions, Alerts Substance Reaction Severity [...] 7Result Comment: [06/19/2016] abby 8Result Comment: [06/19/2016] gaylebend 9Result Comment: [06/19/2016] ABBY Medications albuterol 0.083% inhalation solution 3 mL = 2.5 mg, Inhalation, Every 6 hours, use Acapella device after every treatment, # 120 each, 3 Refills, Maintenance, 06/27/20 15:48:00 EST, Solution, [facility] #[id number], 151, cm, 02/05/20 7:35:00 EDT, Height Start Date: 06/27/20 Status: Ordered amoxicillin 500 mg oral capsule 4 capsule = 2,000 mg, By Mouth, Once, take 4 capsules prior to dental procedure, # 4 capsule, 0 Refills, Soft Stop, 12/27/19 12:56:00 EDT, [facility] #[id number], 151, cm, 11/22/19 11:48:00 EDT,Height, 65.4, kg, 05/02/18 11:04:00 EST, Dry Weight Start Date: 12/27/19 Status: Ordered aspirin 81 mg oral tablet, chewable 81 mg, 1, tablet, By Mouth, Daily, # 90 tablet, Refills 3, Tot. Refills 3, Maintenance, 02/05/20 7:58:00 EDT, Route to Pharmacy Electronically, [facility] #[id number], 151, cm, 02/05/20 7:35:00 EDT, Height, 65.4, kg, 05/02/18 11:04:00 EST, Dry We... Start Date: 02/05/20 Status: Ordered meloxicam 7.5 mg oral tablet 1 tablet, By Mouth, Daily, # 90 tablet, 0 Refills, Maintenance, 07/01/20 12:15:00 EST, [facility] #[id number], 151, cm, 02/05/20 7:35:00 EDT, Height Start [...] 05/17/19 14:49:00 EST, Route to Pharmacy Electronically, [id number], [facility] #[id number], 151, cm, 05/17/19 14:23:00 EST, Hei... Start [...] 05/07/20 13:57:00 EST, Route to Pharmacy Electronically, [facility] #58691, 151, cm, 02/05/20 7:35:00 EDT, Height Start [...]
--- OUTSIDE RECORDS SUMMARY | 2023-08-31 08:13 | XMS_ITS | Continuity of Care Document ---
Author Organization [facility] Zac lt Address [address] [place] [address]- Care Team Providers Care Media Relations Associate Name Role Phone Tray BROWN, Robert Anthony Primary Care Physician Encounter [facility] Date(s): 09/10/20 - 10/10/20 [facility] Adult [address] [place] [address]- Allergies, Adverse Reactions, Alerts Substance Reaction Severity [...] Recorded 1Location History: [facility] 2Location History: [facility] 3Result Comment: [06/19/2016] ABBY 4Result Comment: [06/19/2016] gaylebend 5Early/Late Reason: Other : 6Result Comment: [06/19/2016] GAYLEBECYNTHIA 7Result Comment: [06/19/2016] abby 8Result Comment: [06/19/2016] gaylebend 9Result Comment: [06/19/2016] RIVERBEND Medications albuterol 0.083% inhalation solution 3 mL = 2.5 mg, Inhalation, Every 6 hours, use Acapella device after every treatment, # 120 each, 3 Refills, Maintenance, 06/27/20 15:48:00 EST, Solution, [facility] #[id number], 151, cm, 02/05/20 7:35:00 EDT, Height Start Date: 06/27/20 Status: Ordered amoxicillin 500 mg oral capsule 4 capsule = 2,000 mg, By Mouth, Once, take 4 capsules prior to dental procedure, # 4 capsule, 0 Refills, Soft Stop, 08/15/20 16:35:00 EDT, [facility] #[id number], 151, cm, 02/05/20 7:35:00 EDT, Height Start Date: 08/15/20 Status: Ordered aspirin 81 mg oral tablet, chewable 81 mg, 1, tablet, By Mouth, Daily, # 90 tablet, Refills 3, Tot. Refills 3, Maintenance, 02/05/20 7:58:00 EDT, Route to Pharmacy Electronically, [facility] #[id number], 151, cm, 02/05/20 7:35:00 EDT, Height, 65.4, kg, 05/02/18 11:04:00 EST, Dry We... Start Date: 02/05/20 Status: Ordered Hyper-Don 7% inhalation solution 4 mL = 0.28 Gm, Neb, 2 times a day, take with 0.5ml = 2.5 mg albuterol (add hypersal 4ml to 0.5ml albuterol) twice a day, # 240 mL, 11 Refills, Maintenance, 08/07/20 9:58:00 EDT, [facility]#[id number], J47.0 bronchiectasis, 4 mL Neb 2 times a da... Start Date: 08/07/20 Stop Date: 08/02/21 Status: Ordered meloxicam 7.5 mg oral tablet 1 tablet, By Mouth, Daily, # 90 tablet, 0 Refills, Maintenance, 09/30/20 13:27:00 EDT, [facility] #[id number], 151, cm, 09/09/20 9:14:00 EDT, Height Start Date: 09/30/20 Status: Ordered MiraLax Powder 1 pack/packet = 17 Gm, By Mouth, PRN Constipation, 0 Refills, Maintenance, 02/11/17 8:35:49 EDT, Powder Start Date: 02/11/17 Status: Ordered Nebulizer/Compressor See Instructions, # 1 [...] 08/26/20 14:10:00 EDT, Route to Pharmacy Electronically, [id number], [facility] #[id number], 151, cm, 08/26/20 13:26:00 EDT, Height Start [...]
--- OUTSIDE RECORDS SUMMARY | 2023-08-31 08:13 | XMS_ITS | Continuity of Care Document ---
Author Organization [facility] Address [address] [place] [address]- Care Team Providers Care Grubber Name Role Phone Tray BROWN, Robert Anthony Primary Care Physician Encounter [facility] Date(s): 12/18/21 - 01/17/22 [facility] [address] [place] [address]- Attending Physician: Adithya Sheth Admitting Physician: Adithya Sheth Referring Physician: AdmtrAdithya Allergies, Adverse Reactions, Alerts Substance Reaction Severity Status codeine Active tetanus toxoid Active sulfa drugs Active Immunizations Given and Recorded Vaccine Date Status Refusal Reason SARS-CoV-2 mRNA (iztjjzs-anpf-qucgm) vax 08/06/21 Recorded SARS-CoV-2 (COVID-19) mRNA BNT-162b2 [...] EVERY TREATMENT., # 360 mL, 5 Refills, [facility] #[id number], 151, cm, 09/29/21 13:12:00 EDT, Height, 61.69, kg, 09/29/21 13:11:00 EDT, Dry Weight Start Date: 11/13/21 Status: Ordered bisoprolol 5 mg oral tablet 0.5 tablet = 2.5 mg, By Mouth, Daily, # 45 tablet, 3 Refills, Maintenance, 06/12/21 13:52:00 EST, Tablet, [facility], 151, cm, 06/11/21 13:48:00 EST, Height Start Date: 06/12/21 Stop Date: 06/07/22 Status: Ordered clopidogrel 75 mg oral tablet 1, tablet, By Mouth, Daily, # 90 Unknown, Refills 3, Route to Pharmacy Electronically, [facility], 151, cm, 09/29/21 13:12:00 EDT, Height, 61.69, kg, 09/29/21 13:11:00 EDT, Dry Weight Start Date: 11/05/21 Status: Ordered Hyper-Don 7% inhalation solution 4 mL = 0.28 Gm, Neb, 2 times a day, take with 0.5ml = 2.5 mg albuterol (add hypersal 4ml to 0.5ml albuterol) twice a day J47.0, # 720 mL, 1 Refills, Maintenance, 07/28/22 9:58:00 EDT, [facility] #[id number], J47.0 bronchiectasis, 4 mL Neb 2 times... Start Date: 07/28/22 Status: Ordered Lasix 40 mg oral tablet 1, tablet, By Mouth, Daily, # 90 Unknown, Refills 3, Route to Pharmacy Electronically, [facility], 151, cm, 09/29/21 13:12:00 EDT, Height, 61.69, kg, 09/29/21 13:11:00 EDT, Dry Weight Start Date: 11/05/21 Status: Ordered losartan 25 mg oral tablet 12.5 mg, 0.5, tablet, By Mouth, Daily, Take 0.5 tablet (12.5mg) daily, # 45 tablet, Refills 3, Tot.Refills 3, Maintenance, 06/12/21 13:52:00 EST, Route to Pharmacy Electronically, [facility], 151, cm, 06/11/21 13:48:00 EST, Height [...] 10/17/21 15:25:00 EDT, Route to Pharmacy Electronically, [id number], [facility] #[id number], 151, cm, 09/29/21 13:12:00 EDT, Hei... Start Date: 10/17/21 Status: Ordered Sodium Chloride, Inhalation 0.9% inhalation solution 4 mL = 0.036 Gm, Neb, 2 times a day, use with 0.5% albuterol solution together in nebulizer, # 240 mL, 6 Refills, Maintenance, 06/12/21 19:39:00 EST, [facility] #[id number], Partial fill upon patient request if the [...] 1-49% stenosis; LICA 1-49% stenosis 4Admission to [facility] for CHF 11/2020. Cardiac MRI: LVEF 44%; 12/16/20 echo at [facility]: LVEF=40-45% [id number] as lung mass. S/P R-CHOP x 6 cycles. Social History Social History Type Response Smoking Status Former smoker entered on: 09/06/14 Sex Care Team Personnel Name: Tray BROWN, Robert Anthony Address: [address] [place] [phone]-
--- OUTSIDE RECORDS SUMMARY | 2023-08-31 08:13 | XMS_ITS | Continuity of Care Document ---
Author Organization [facility] Zac lt Address [address] [place] [address]- Care Team Providers Care Major Sales Associate Name Role Phone Tray BROWN, Robert Anthony Primary Care Physician [phone] [place] [facility] Date(s): 12/23/22 - 01/22/23 [facility] Adult [address] [place] [address]- Allergies, Adverse Reactions, Alerts Substance Reaction Severity Status codeine Active tetanus toxoid Active sulfa drugs Active Fish Active Immunizations Given and Recorded Vaccine Date Status Refusal Reason [id number] 12y+ bivalent booster vax 08/15/22 Recorded Influenza Virus Vaccine (oldterm) 1 02/03/22 Recor ded SARS-CoV-2 mRNA (eowydbb-yavc-bjouh) vax 08/06/21 Recorded SARS-CoV-2 (COVID-19) mRNA BNT-162b2 [...] 08/31/12 Recorded pneumococcal 23-valent vaccine 10 06/20/12 Sigifredo anderson 1Result Comment: influenza at [facility] 2Location History: [facility] 3Location History: [facility] 4Result Comment: [06/19/2016] RIVERBEND 5Result Comment: [06/19/2016] riverbend 6Early/Late Reason: Other : 7Result Comment: [06/19/2016] RIVERBEND 8Result Comment: [06/19/2016] riverbend 9Result Comment: [06/19/2016] riverbend 10Result Comment: [06/19/2016] RIVERBEND Medications albuterol 0.083% inhalation solution 3 mL, Inhalation, Every 6 hours, USE ACAPELLA DEVICE AFTER EVERY TREATMENT. J44.9, # 360 mL, 5 Refills, 01/18/23 8:59:00 EDT, [facility] #[id number], J44.9, 150, cm, 01/11/23 10:59:00 EDT, Height, 61, kg, 04/17/22 11:31:00 EST, Dry Weight Start Date: 01/18/23 Status: Ordered bisoprolol 5 mg oral tablet See Instructions, TAKE 1/2 TABLET DAILY, # 45 tablet, 1 Refills, Maintenance, 09/04/22 16:11:00 EDT, [facility], 150, cm, 08/28/22 9:37:00 EDT, Height, 61, kg, 04/17/22 11:31:00 EST, Dry Weight Start Date: 09/04/22 Status: Ordered clopidogrel 75 mg oral tablet 1, tablet, By Mouth, Daily, # 90 Unknown, Refills 0, Tot. Refills 0, Maintenance, 10/19/22 15:23:00EDT, Route to Pharmacy Electronically, [facility], 150, cm, 08/28/22 9:37:00 EDT, Height, 61, kg, 04/17/22 11:31:00 EST, Dry Weight Start Date: 10/19/22 Status: Ordered Lasix 40 mg oral tablet 1, tablet, By Mouth, Daily, # 90 Unknown, Refills 3, Route to Pharmacy Electronically, [facility], 151, cm, 09/29/21 13:12:00 EDT, Height, 61.69, kg, 09/29/21 13:11:00 EDT, Dry Weight Start Date: 11/05/21 Status: Ordered losartan 25 mg oral tablet See Instructions, TAKE 1/2 TABLET DAILY, # 45 tablet, 1 Refills, Maintenance, 09/04/22 16:13:00 EDT, [facility], 150, cm, 08/28/22 9:37:00 EDT, [...] 12/22/22 10:35:00 EDT, Route to Pharmacy Electronically, [facility] #[id number], Partial fill upon patient req... Start Date: 12/22/22 Status: Ordered ProAir HFA 90 mcg/inh inhalation aerosol with adapter 2, puffs, Inhalation, 4 times a day, PRN, # 1 each, Refills 5, Tot. Refills 5, Maintenance, 10/17/21 15:25:00 EDT, Route to Pharmacy Electronically, [id number], [facility] #[id number], 151, cm, 09/29/21 13:12:00 EDT, Hei... Start [...] mL, 0 Refills, Maintenance, 11/27/22 15:51:00 EDT, [facility] #[id number], 12, USE 4 ML VIA NEBULIZER TWICE DAILY USE WITH 0.... Start Date: 11/27/22 Status: Ordered Trelegy Ellipta 200 mcg-62.5 mcg-25 mcg/inh inhalation powder 1 puffs, Inhalation, Daily, at the same time every day, j44.9, # 1 each, 6 Refills, Maintenance, 10/14/22 11:12:00 EDT, Powder, [facility] #[id number], Partial fill upon patient request if the prescription is for a schedule II opioid drug., 1 puf... Start Date: 10/14/22 Status: Ordered Wheelchair See Instructions, # 1 each, Refills 0, Tot. 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 Cardiac MRI: LVEF 44%; 12/16/20 echo at [facility]: LVEF=40-45% 8Per CT w/contrast 12/19/2021: Irregular partially calcified tissue along the distal left main pulmonary artery extending along the regular small caliber left lower lobe pulmonary artery branch probably reflecting chronic thrombus.. 11720-Yxfjggbgy as lung mass. S/P R-CHOP x 6 cycles. Social History Social History Type Response Smoking Status Former smoker entered on: 09/06/14 Sex Patient Care team information Care Team Personnel Name: Manuel Mayes MD Position: [facility] Physician - Pulm/Critical Care Member Role: Program Advisor Address: Address: [address] [place] [address] [address] [facility] [place] [address]- Name: Kenneth Chowdary MD Position: [facility] Cardiology MD Member Role: Security Strategist Address: Address: [address] [place] [address] [address] [facility] [place] [address]- Name: Robert Feliz MD Position: [facility] Physician - Primary Care Member Role: PCP Address: Address: [address] [place] [phone]- [place] Name: Georgette Silva Position: [facility] [place] Food Service Worker Hospital Member Role: Rn Pool Name: Epi Turner Member Role: Neurologist Name: Mariposa BROWN, Zi Méndez Position: Reference Physician Member Role: Applications Engineer Address: Address: [address] [place] [address] [address] [facility] [place] [address]- [place] Care Team Related Persons Name: RAMIRO MARR Address: home [address] [place] [id number]
--- OUTSIDE RECORDS SUMMARY | 2023-08-31 08:13 | XMS_ITS | Continuity of Care Document ---
Author Organization [facility] Zac lt Address [address] [place] [address]- Care Team Providers Care Leather Patcher Name Role Phone Tray BROWN, Robert Anthony Primary Care Physician Encounter [facility] Date(s): 04/22/22 - 05/22/22 [facility] Adult [address] [place] [address]- Allergies, Adverse Reactions, Alerts Substance Reaction Severity Status codeine Active tetanus toxoid Active sulfa drugs Active Fish Active Immunizations Given and Recorded Vaccine Date Status Refusal Reason Influenza Virus Vaccine (oldterm) 1 02/03/22 Recor ded SARS-CoV-2 mRNA (afyzyko-lhkk-spmyd) vax 08/06/21 Recorded SARS-CoV-2 (COVID-19) mRNA BNT-162b2 [...] 06/20/12 Recorde d 1Result Comment: influenza at [facility] 2Location History: [facility] 3Location History: [facility] 4Result Comment: [06/19/2016] R[facility]BEND 5Result Comment: [06/19/2016] riverbend 6Early/Late Reason: Other : 7Result Comment: [06/19/2016] RIVERBEND 8Result Comment: [06/19/2016] riverbend 9Result Comment: [06/19/2016] riverbend 10Result Comment: [06/19/2016] RIVERBEND Medications albuterol 0.083% inhalation solution 3 mL, Inhalation, Every 6 hours, USE ACAPELLA DEVICE AFTER EVERY TREATMENT., # 360 mL, 5 Refills, [facility] #[id number], 151, cm, 09/29/21 13:12:00 EDT, Height, 61.69, [...] 10/17/21 15:25:00 EDT, Route to Pharmacy Electronically, [id number], [facility] #[id number], 151, cm, 09/29/21 13:12:00 EDT, Hei... Start Date: 10/17/21 Status: Ordered Sodium Chloride, Inhalation 0.9% inhalation solution See Instructions, USE 4 ML VIA NEBULIZER TWICE DAILY USE WITH 0.5% VIA INHALER SOLUTION TOGETHER INVIA NEBULIZER, # 300 mL, 0 Refills, Maintenance, 04/28/22 9:38:00 EST, [facility] #[id number],25, USE 4 ML VIA NEBULIZER TWICE DAILY [...] chart review meeting GFR criteria 5Admission to [facility] for CHF 11/2020. Cardiac MRI: LVEF 44%; 12/16/20 echo at [facility]: LVEF=40-45% [id number]-[id number] as lung mass. S/P R-CHOP x 6 cycles. Social History Social History Type Response Smoking Status Former smoker entered on: 09/06/14 Sex Patient Care team information Care Team Personnel Name: Francoise Black RN Position: [facility] RN Member Role: Primary Care Nurse Name: Chiqui Stoll RN Position: [facility] RN Member Role: Primary Care Nurse Name: Robert Feliz MD Position: [facility] Primary Care Physician Member Role: PCP Address: Address: [address] [place] [address]- Care Team Related Persons Name: PARENTRAMIRO Address: home [address] [place] [id number]
--- OUTSIDE RECORDS SUMMARY | 2023-08-31 08:13 | XMS_ITS | Continuity of Care Document ---
Author Organization [facility] Zac lt Address [address] [place] [address]- Care Team Providers Care General Hardware Salesperson Name Role Phone Tray BROWN, Robert Anthony Primary Care Physician [place] [facility] [place] Date(s): 11/19/20 - 12/19/20 [facility] Adult [address] [place] [address]- Allergies, Adverse Reactions, Alerts Substance Reaction Severity [...] Albert 2Location History: [facility] 3Result Comment: [06/19/2016] JANET 4Result Comment: [06/19/2016] riverbend 5Early/Late Reason: Other : 6Result Comment: [06/19/2016] RIVERBEND 7Result Comment: [06/19/2016] riverbend 8Result Comment: [06/19/2016] riverbend 9Result Comment: [06/19/2016] [place]END Medications albuterol 0.083% inhalation solution 3 mL = 2.5 mg, Inhalation, Every 6 hours, use Acapella device after every treatment, # 120 each, 3 Refills, Maintenance, 06/27/20 15:48:00 EST, Solution, [facility] #[id number], 151, cm, 02/05/20 7:35:00 EDT, Height Start Date: 06/27/20 Status: Ordered amoxicillin 500 mg oral capsule 4 capsule = 2,000 mg, By Mouth, Once, take 4 capsules prior to dental procedure, # 4 capsule, 0 Refills, Soft Stop, 08/15/20 16:35:00 EDT, [facility] #[id number], 151, cm, 02/05/20 7:35:00 EDT, Height Start Date: 08/15/20 Status: Ordered aspirin 81 mg oral tablet, chewable 81 mg, 1, tablet, By Mouth, Daily, # 90 tablet, Refills 3, Tot. Refills 3, Maintenance, 02/05/20 7:58:00 EDT, Route to Pharmacy Electronically, [facility] #[id number], 151, cm, 02/05/20 7:35:00 EDT, Height, 65.4, kg, 05/02/18 11:04:00 EST, Dry We... Start Date: 02/05/20 Status: Ordered Hyper-Don 7% inhalation solution 4 mL = 0.28 Gm, Neb, 2 times a day, take with 0.5ml = 2.5 mg albuterol (add hypersal 4ml to 0.5ml albuterol) twice a day, # 240 mL, 11 Refills, Maintenance, 08/07/20 9:58:00 EDT, [facility]#[id number], J47.0 bronchiectasis, 4 mL Neb 2 times a da... Start Date: 08/07/20 Stop Date: 08/02/21 Status: Ordered Lasix 40 mg oral tablet 40 mg, 1, tablet, By Mouth, Daily, prescribed by [facility] doctor 12/18/20, # 30 tablet, Refills 0, Maintenance, 12/19/20 13:31:00 EDT, Partial fill upon patient request if the prescription is for a schedule II opioid drug. Start Date: 12/19/20 Status: Ordered Nebulizer/Compressor See Instructions, # 1 each, Refills 11, Tot. Refills 11, Maintenance, E0570 Nebulizer A7003 Neb Disp Set A7014 Neb non-Disp Filter A7005 Neb Non-Disp set A7015 Aerosol Mask A7013 Neb Disp Filter length of need lifetime 99 months DX COPD J44.9, .. Start Date: 06/27/20 Status: Ordered Plavix 75 mg oral tablet 75 mg, 1, tablet, By Mouth, Daily, Prescribed by [facility] doctory 12/18/20 stop asa after on plavix [...] 08/26/20 14:10:00 EDT, Route to Pharmacy Electronically, [id number], [id number], 151, cm, 08/26/20 13:26:00 EDT, Height Start [...] each, 6 Refills, Maintenance, 12/06/20 9:31:00 EDT, [place], [id number], Partial fill upon patient request if the [...]
--- OUTSIDE RECORDS SUMMARY | 2023-08-31 08:13 | XMS_ITS | Continuity of Care Document ---
Author Organization [facility] [place] Zac [facility] Address [address] [place] [address]- Care Team Providers Care Liquid Floor And Wall Applier Name Role Phone Robert Feliz MD Primary Care Physician [phone] Encounter [facility] Date(s): 01/10/21 - 01/17/21 [facility] Adult [address] [place] [address]- Attending Physician: Robert Feliz MD Allergies, Adverse [...] 23-valent vaccine 9 06/20/12 Recorded 1Location History: [facility] 2Location History: [facility] 3Result Comment: [06/19/2016] JANET 4Result Comment: [06/19/2016] riverbend 5Early/Late Reason: Other : 6Result Comment: [06/19/2016] R[place]BEND 7Result Comment: [06/19/2016] riverbend 8Result Comment: [06/19/2016] riverbend 9Result Comment: [06/19/2016] R[place]END Medications albuterol 0.083% inhalation solution 3 mL = 2.5 mg, Inhalation, Every 6 hours, use Acapella device after every treatment, # 120 each, 3 Refills, Maintenance, 06/27/20 15:48:00 EST, Solution, [facility] #[id number], 151, cm, 02/05/20 7:35:00 EDT, Height Start Date: 06/27/20 Status: Ordered amoxicillin 500 mg oral capsule 4 capsule = 2,000 mg, By Mouth, Once, take 4 capsules prior to dental procedure, # 4 capsule, 0 Refills, Soft Stop, 08/15/20 16:35:00 EDT, [facility] #[id number], 151, cm, 02/05/20 7:35:00 EDT, Height Start Date: 08/15/20 Status: Ordered Hyper-Don 7% inhalation solution 4 mL = 0.28 Gm, Neb, 2 times a day, take with 0.5ml = 2.5 mg albuterol (add hypersal 4ml to 0.5ml albuterol) twice a day, # 240 mL, 11 Refills, Maintenance, 08/07/20 9:58:00 EDT, [facility]#62049, J47.0 bronchiectasis, 4 mL Neb 2 times a da... Start Date: 08/07/20 Stop Date: 08/02/21 Status: Ordered Lasix 40 mg oral tablet 40 mg, 1, tablet, By Mouth, Daily, prescribed by [facility] doctor 12/18/20, # 30 tablet, Refills 2, Tot. Refills 2, Maintenance, 01/10/21 13:42:00 EDT, Route to Pharmacy Electronically, [facility] #[id number], Partial fill upon patient request if th... Start Date: 01/10/21 Status: Ordered meloxicam 7.5 mg oral tablet 1 tablet, By Mouth, Daily, # 90 tablet, 0 Refills, [facility] #[id number], 151, cm, 12/27/20 8:19:00 EDT, Height Start [...] 01/10/21 13:45:00 EDT, Route to Pharmacy Electronically, [facility] #[id number], Partial fill upon patientrequest if the prescription is for a schedule II op... Start Date: 01/10/21 Status: Ordered ProAir HFA 90 mcg/inh inhalation aerosol with adapter 2, puffs, Inhalation, 4 times a day, PRN, # 1 each, Refills 6, Tot. Refills 6, Maintenance, 08/26/20 14:10:00 EDT, Route to Pharmacy Electronically, [id number], [facility] #[id number], 151, cm, 08/26/20 13:26:00 EDT, Height Start Date: 08/26/20 Status: Ordered Trelegy Ellipta 200 mcg-62.5 mcg-25 mcg/inh inhalation powder 1 puffs, Inhalation, Daily, at the same time every day, # 1 each, 6 Refills, Maintenance, 12/06/20 9:31:00 EDT, Powder, [facility] #[id number], Partial fill upon patient request if the [...] oldest [Reference Range]: 1 Height 151 cm (01/10/21 1:08 PM) Weight 61 kg (01/10/21 1:08 PM) Oxygen Saturation [94-100 %] 97 % (01/10/21 1:08 PM) Pulse Rate [55-90 bpm] 68 bpm (01/10/21 1:08 PM) Body Mass Index [18.5-24.99] 26.75 *H* (01/10/21 1:08 PM) Blood Pressure [90-138/55-84 mm Hg] 120/ 72mm Hg (01/10/21 1:08 PM) Temperature [96.8-100.4 DegF] 97.9 DegF (01/10/21 1:08 PM) Blood pressure sites Arm, left (01/10/21 1:08 PM) Temperature Route Oral (01/10/21 1:08 PM) Weight Obtained Via Standing scale (01/10/21 1:08 PM) Social History Social History Type Response Smoking Status Former smoker entered on: 09/06/14 Sex
--- OUTSIDE RECORDS SUMMARY | 2023-08-31 08:13 | XMS_ITS | Continuity of Care Document ---
Author Organization [facility] Address [address] [place] [address]- Care Team Providers Care Mate Relief Name Role Phone Tray BROWN, Robert Anthony Primary Care Physician Encounter [facility] [place] Date(s): 02/26/21 - 03/28/21 [facility] [address] [place] [address]- [place] Allergies, Adverse Reactions, Alerts Substance Reaction [...] Albert 2Location History: [facility] 3Result Comment: [06/19/2016] JANET 4Result Comment: [06/19/2016] riverbend 5Early/Late Reason: Other : 6Result Comment: [06/19/2016] R[place] 7Result Comment: [06/19/2016] riverbend 8Result Comment: [06/19/2016] riverbend 9Result Comment: [06/19/2016] R[place] Medications albuterol 0.083% inhalation solution 3 mL = 2.5 mg, Inhalation, Every 6 hours, use Acapella device after every treatment, # 120 each, 3 Refills, Maintenance, 06/27/20 15:48:00 EST, Solution, [facility] #[id number], 151, cm, 02/05/20 7:35:00 EDT, Height Start Date: 06/27/20 Status: Ordered amoxicillin 500 mg oral capsule 4 capsule = 2,000 mg, By Mouth, Once, take 4 capsules prior to dental procedure, # 4 capsule, 0 Refills, Soft Stop, 08/15/20 16:35:00 EDT, [facility] #74852, 151, cm, 02/05/20 7:35:00 EDT, Height Start Date: 08/15/20 Status: Ordered Hyper-Don 7% inhalation solution 4 mL = 0.28 Gm, Neb, 2 times a day, take with 0.5ml = 2.5 mg albuterol (add hypersal 4ml to 0.5ml albuterol) twice a day, # 240 mL, 11 Refills, Maintenance, 08/07/20 9:58:00 EDT, [facility]#11668, J47.0 bronchiectasis, 4 mL Neb 2 times a da... Start Date: 08/07/20 Stop Date: 08/02/21 Status: Ordered Lasix 40 mg oral tablet 40 mg, 1, tablet, By Mouth, Daily, prescribed by [facility] doctor 12/18/20, # 30 tablet, Refills 2, Tot. Refills 2, Maintenance, 01/10/21 13:42:00 EDT, Route to Pharmacy Electronically, [facility] #[id number], Partial fill upon patient request if th... Start Date: 01/10/21 Status: Ordered losartan 25 mg oral tablet 12.5 mg, 0.5, tablet, By Mouth, Daily, Take 0.5 tablet (12.5mg) daily, # 15 tablet, Refills 11, Tot. Refills 11, Maintenance, 02/05/21 8:59:00 EDT, Route to Pharmacy Electronically, [facility] #[id number], Partial fill upon patient request if the... Start Date: 02/05/21 Status: Ordered meloxicam 7.5 mg oral tablet 1 tablet, By Mouth, Daily, # 90 tablet, 0 Refills, [facility] #[id number], 151, cm, 12/27/20 8:19:00 EDT, Height Start [...] 01/10/21 13:45:00 EDT, Route to Pharmacy Electronically, [facility] #[id number], Partial fill upon patientrequest if the prescription is for a schedule II op... Start Date: 01/10/21 Status: Ordered ProAir HFA 90 mcg/inh inhalation aerosol with adapter 2, puffs, Inhalation, 4 times a day, PRN, # 1 each, Refills 6, Tot. Refills 6, Maintenance, 08/26/20 14:10:00 EDT, Route to Pharmacy Electronically, [id number], [facility] #[id number], 151, cm, 08/26/20 13:26:00 EDT, Height Start Date: 08/26/20 Status: Ordered rosuvastatin 5 mg oral capsule 1 capsule = 5 mg, By Mouth, Daily, # 30 capsule, 6 Refills, Maintenance, 03/28/21 16:12:00 EST, Capsule, [facility] #[id number], Partial fill upon patient request if the prescription is for a schedule II opioid drug., 151, cm, 03/07/21 9:27:00 ES... Start Date: 03/28/21 Status: Ordered Trelegy Ellipta 200 mcg-62.5 mcg-25 mcg/inh inhalation powder 1 puffs, Inhalation, Daily, at the same time every day, # 1 each, 6 Refills, Maintenance, 12/06/20 9:31:00 EDT, Powder, [facility] #[id number], Partial fill upon patient request if the [...]
--- OUTSIDE RECORDS SUMMARY | 2023-08-31 08:13 | XMS_ITS | Continuity of Care Document ---
Author Organization [facility] Address [address] [place] [address]- Care Team Providers Care Continuous Wave Operator Name Role Phone Tray BROWN, Robert Anthony Primary Care Physician [phone] Encounter [facility] Date(s): 08/07/20 - 09/06/20 [facility] [address] [place] [address]- Allergies, Adverse Reactions, Alerts Substance Reaction Severity [...] 3 Refills, Maintenance, 06/27/20 15:48:00 EST, Solution, [facility] #[id number], 151, cm, 02/05/20 7:35:00 EDT, Height Start Date: 06/27/20 Status: Ordered albuterol 5 mg/mL (0.5%) inhalation solution 0.5 mL = 2.5 mg, Inhalation, 2 times a day, PRN for wheezing, dilute in 4 mL of Hyper-Don and take twice a day, # 120 each, 5 Refills, Maintenance, 08/07/20 9:57:00 EDT, Solution, [facility] #31581, J47.0 bronchiectasis, 151, cm, 02/05/20 7:... Start Date: 08/07/20 Stop Date: 02/03/21 Status: Ordered amoxicillin 500 mg oral capsule 4 capsule = 2,000 mg, By Mouth, Once, take 4 capsules prior to dental procedure, # 4 capsule, 0 Refills, Soft Stop, 08/15/20 16:35:00 EDT, [facility] #[id number], 151, cm, 02/05/20 7:35:00 EDT, Height Start Date: 08/15/20 Status: Ordered aspirin 81 mg oral tablet, chewable 81 mg, 1, tablet, By Mouth, Daily, # 90 tablet, Refills 3, Tot. Refills 3, Maintenance, 02/05/20 7:58:00 EDT, Route to Pharmacy Electronically, [facility] #[id number], 151, cm, 02/05/20 7:35:00 EDT, Height, 65.4, kg, 05/02/18 11:04:00 EST, Dry We... Start Date: 02/05/20 Status: Ordered Hyper-Don 7% inhalation solution 4 mL = 0.28 Gm, Neb, 2 times a day, take with 0.5ml = 2.5 mg albuterol (add hypersal 4ml to 0.5ml albuterol) twice a day, # 240 mL, 11 Refills, Maintenance, 08/07/20 9:58:00 EDT, [facility]#17240, J47.0 bronchiectasis, 4 mL Neb 2 times a da... Start Date: 08/07/20 Stop Date: 08/02/21 Status: Ordered meloxicam 7.5 mg oral tablet 1 tablet, By Mouth, Daily, # 90 tablet, 0 Refills, Maintenance, 07/01/20 12:15:00 EST, [facility] #70804, 151, cm, 02/05/20 7:35:00 EDT, Height Start [...] 03... Start Date: 06/27/20 Status: Ordered Pepcid AC over the counter Pepcid AC over the counter, Refills 0, Maintenance, 10/08/16 7:39:59, Compound Start Date: 10/08/16 Status: Ordered ProAir HFA 90 mcg/inh inhalation aerosol with adapter 2, puffs, Inhalation, 4 times a day, PRN, # 1 each, Refills 6, Tot. Refills 6, Maintenance, 08/26/20 14:10:00 EDT, Route to Pharmacy Electronically, [id number], [facility] #59118, 151, cm, 08/26/20 13:26:00 EDT, Height Start Date: 08/26/20 Status: Ordered ProAir HFA 90 mcg/inh inhalation aerosol with adapter 2, puffs, Inhalation, 4 times a day, PRN, # 1 each, Refills 6, Tot. Refills 6, Maintenance, 05/17/19 14:49:00 EST, Route to Pharmacy Electronically, [id number], [facility] #67133, 151, cm, 05/17/19 14:23:00 EST, Hei... Start [...] 05/07/20 13:57:00 EST, Route to Pharmacy Electronically, [facility] #[id number], 151, cm, 02/05/20 7:35:00 EDT, Height Start [...]
--- OUTSIDE RECORDS SUMMARY | 2023-08-31 08:13 | XMS_ITS | Continuity of Care Document ---
Author Organization [facility] Address [address] [place] [address]- Care Team Providers Care Composition Floor Setter Name Role Phone Tray BROWN, Robert Anthony Primary Care Physician [place] [facility]23 [place] 07/[place]/23 [facility] [address] [place] [address]- Allergies, Adverse Reactions, Alerts Substance Reaction Severity [...] virus vaccine, inactivated 6 02/09/12 Re corded [id number] 12y+ bivalent booster vax 08/15/22 Recorded Influenza Virus Vaccine (oldterm) 7 02/03/22 Recor ded SARS-CoV-2 mRNA ([id number]) vax 08/06/21 Recorded SARS-CoV-2 (COVID-19) mRNA BNT-162b2 vac 01/27/21 Recorded SARS-CoV-2 (COVID-19) mRNA BNT-162b2 vac 06/24/20 Given SARS-CoV-2 (COVID-19) mRNA BNT-162b2 vac 06/03/20 Recorded pneumococcal 13-valent vaccine 8 07/29/15 Recorded pneumococcal 13-valent vaccine 9 08/31/12 Recorded Zoster Vaccine Live 08/31/12 Recorded pneumococcal 23-valent vaccine 10 06/20/12 Recorde d 1Location History: [facility] 2Location History: [facility] 3Result Comment: [06/19/2016] [place] 4Result Comment: [06/19/2016] riverbend 5Early/Late Reason: Other : 6Result Comment: [06/19/2016] RIVER[place]END 7Result Comment: influenza at [facility] 8Result Comment: [06/19/2016] riverbend 9Result Comment: [06/19/2016] riverbend 10Result Comment: [06/19/2016] RIVERBEND Medications albuterol 0.083% inhalation solution 3 mL, Inhalation, Every 6 hours, USE ACAPELLA DEVICE AFTER EVERY TREATMENT. J44.9, # 360 mL, 5 Refills, 01/18/23 8:59:00 EDT, [email or web address] #07652, J44.9, 150, cm, 01/11/23 10:59:00 EDT, Height, 61, kg, 04/17/22 11:31:00 EST, Dry Weight Start Date: 01/18/23 Status: Ordered benzonatate 100 mg oral capsule 1 capsule = 100 mg, By Mouth, 3 times a day, PRN as needed for cough, for 7 days, # 21 capsule, 0 Refills, Acute 07/28/23 4:16:00 EDT, 07/21/23 4:16:00 EDT, Capsule, [facility]/pharmacy #[id number], Partial fill upon patient request if the prescription is for a sc... Start Date: 07/21/23 Stop Date: 07/28/23 Status: Ordered bisoprolol 5 mg oral tablet [...] Refills, Soft Stop, 07/19/23 9:46:00 EDT, Patch, [facility]/pharmacy #[id number], Partial fill upon patient request [...] 10/17/21 15:25:00 EDT, Route to Pharmacy Electronically, [id number], [facility] #[id number], 151, cm, 09/29/21 13:12:00 EDT, Hei... Start [...] mL, 5 Refills, Maintenance, 02/11/23 9:46:00 EDT, [facility] #39144, USE 4 ML VIANEBULIZER TWICE DAILY USE WITH 0.5% TOGETHER IN VIA... Start Date: 02/11/23 Status: Ordered traMADol 50 mg oral tablet 1 tablet = 50 mg, By Mouth, Every 12 hours, PRN for pain, # 30 tablet, 5 Refills, Acute 01/06/24 10:48:00 EDT, 07/06/23 10:47:00 EDT, Tablet, [facility]/pharmacy #[id number], Partial fill upon patient request [...] chart review meeting GFR criteria 6Admission to [facility] for CHF 11/2020. Cardiac MRI: LVEF 44%; 12/16/20 echo at [facility]: LVEF=40-45% 8Per CT w/contrast 12/19/2021: Irregular partially calcified tissue along the distal left main pulmonary artery extending along the regular small caliber left lower lobe pulmonary artery branch probably reflecting chronic thrombus.. [id number]-Iscuqnwcy as lung mass. S/P R-CHOP x 6 cycles. Social History Social History Type Response Smoking Status Former smoker entered on: 09/06/14 Sex Patient Care team information Care Team Personnel Name: Manuel Mayes MD Position: [facility] Physician - Pulm/Critical Care Member Role: Converter Operator Address: Address: [address] [facility] [place] [address]- Name: Kenneth Chowdary MD Position: [facility] Cardiology MD Member Role: Field Supervisor Address: Address: [address] [place] [address]- Name: Robert Feliz MD Position: [facility] Physician - Primary Care Member Role: PCP Address: Address: [address] [place], [place] [address], [place] [address]- [place] Name: Georgette Silva Position: [facility] Structures Engineer Member Role: Theater Teacher Name: Epi Turner Member Role: Neurologist Name: Mariposa BROWN, Zi Méndez Position: Reference Physician Member Role: Cash Control Specialist Address: Address: [address] [place] [address] [place] [address]- [place] Care Team Related Persons Name: PARENTRAMIRO Address: home [address] [place] [address]
--- OUTSIDE RECORDS SUMMARY | 2023-08-31 08:13 | XMS_ITS | Continuity of Care Document ---
Author Organization [facility] Address [address] [place] [address]- Care Team Providers Care Payroll Tax Analyst Name Role Phone Tray BROWN, Robert Anthony Primary Care Physician Encounter [facility] Date(s): 02/06/23 - 03/08/23 [facility] [address] [place] [address]- Allergies, Adverse Reactions, Alerts Substance Reaction Severity Status codeine Active tetanus toxoid Active sulfa drugs Active Fish Active Immunizations Given and Recorded Vaccine Date Status Refusal Reason [id number] 12y+ bivalent booster vax 08/15/22 Recorded Influenza Virus Vaccine (oldterm) 1 02/03/22 Recor ded SARS-CoV-2 mRNA (vgwmfjr-goet-obnhq) vax 08/06/21 Recorded SARS-CoV-2 (COVID-19) mRNA BNT-162b2 vac 01/27/21 Recorded SARS-CoV-2 (COVID-19) mRNA BNT-162b2 vac 06/24/20 Given SARS-CoV-2 (COVID-19) mRNA BNT-162b2 vac 06/03/20 Recorded influenza virus vaccine, inactivated 01/15/21 Pualino rded influenza virus vaccine, inactivated 02/01/20 Paulino [...] 08/31/12 Recorded pneumococcal 23-valent vaccine 10 06/20/12 [facility] monica 1Result Comment: influenza at [facility] 2Location History: [facility] 3Location History: [facility] 4Result Comment: [06/19/2016] [place] 5Result Comment: [06/19/2016] riverbend 6Early/Late Reason: Other : 7Result Comment: [06/19/2016] [place] 8Result Comment: [06/19/2016] riverbend 9Result Comment: [06/19/2016] riverbend 10Result Comment: [06/19/2016] [place] Medications albuterol 0.083% inhalation solution 3 mL, Inhalation, Every 6 hours, USE ACAPELLA DEVICE AFTER EVERY TREATMENT. J44.9, # 360 mL, 5 Refills, 01/18/23 8:59:00 EDT, [facility] #[id number], J44.9, 150, cm, 01/11/23 10:59:00 EDT, Height, 61, kg, 04/17/22 11:31:00 EST, Dry Weight Start Date: 01/18/23 Status: Ordered bisoprolol 5 mg oral tablet See Instructions, TAKE 1/2 TABLET DAILY, # 45 Unknown, 0 Refills, Maintenance, 02/22/23 7:49:00 EDT, [email or web address], 150, cm, 01/11/23 10:59:00 EDT, Height, 61, kg, 04/17/22 11:31:00 EST, Dry Weight Start Date: 02/22/23 Status: Ordered clopidogrel 75 mg oral tablet See Instructions, TAKE 1 TABLET DAILY, # 90 Unknown, Refills 0, Maintenance, 02/22/23 7:49:00 EDT, Instructions Replace Required Details, Route to Pharmacy Electronically, [email or web address], 150, cm, 01/11/23 10:59:00 EDT, Height, 61, kg, 04/17/22... Start Date: 02/22/23 Status: Ordered Lasix 40 mg oral tablet 1, tablet, By Mouth, Daily, # 90 Unknown, Refills 3, Maintenance, 02/08/23 16:25:00 EDT, Route to Pharmacy Electronically, [facility], 150, cm, 01/11/23 10:59:00 EDT, Height, 61, kg, 04/17/22 11:31:00 EST, Dry Weight Start Date: 02/08/23 Status: Ordered losartan 25 mg oral tablet See Instructions, TAKE 1/2 TABLET DAILY, # 45 Unknown, 0 Refills, Maintenance, 02/22/23 7:49:00 EDT, [facility], 150, cm, 01/11/23 10:59:00 EDT, Height, 61, kg, 04/17/22 11:31:00 EST, Dry Weight Start Date: 02/22/23 Status: Ordered Nebulizer/Compressor See Instructions, # 1 [...] 10/17/21 15:25:00 EDT, Route to Pharmacy Electronically, [id number], [facility] #[id number], 151, cm, 09/29/21 13:12:00 EDT, Hei... Start [...] mL, 5 Refills, Maintenance, 02/11/23 9:46:00 EDT, [facility] #40149, USE 4 ML VIANEBULIZER TWICE DAILY USE [...] puffs Inh... Start Date: 03/01/23 Status: Ordered Wheelchair See Instructions, # 1 [...] chart review meeting GFR criteria 6Admission to [facility] for CHF 11/2020. Cardiac MRI: LVEF 44%; 12/16/20 echo at [facility]: LVEF=40-45% 8Per CT w/contrast 12/19/2021: Irregular partially calcified tissue along the distal left main pulmonary artery extending along the regular small caliber left lower lobe pulmonary artery branch probably reflecting chronic thrombus.. 00806-Oygotdrib as lung mass. S/P R-CHOP x 6 cycles. Social History Social History Type Response Smoking Status Former smoker entered on: 09/06/14 Sex Patient Care team information Care Team Personnel Name: Manuel Mayes MD Position: [facility] Physician - Pulm/Critical Care Member Role: Business Insight And Analytics Manager Address: Address: [address] [place] [address] [address] [place] [address]- Name: Kenneth Chowdary MD Position: [facility] Cardiology MD Member Role: Interactive Media Designer Address: Address: [address] [place] [address] [address] [place] [address]- [place] Name: Robert Feliz MD Position: [facility] Physician - Primary Care Member Role: PCP Address: Address: [address] [place] [address]- [place] Name: Georgette Silva Position: [facility] Sanitation Inspector Member Role: Store Team Member Name: Epi Turner Member Role: Neurologist Name: Mariposa BROWN, Zi Méndez Position: Reference Physician Member Role: Wealth Management Director Address: Address: [address] [place] [address] [address] [facility] [place] [place] [address]- [place] Care Team Related Persons Name: RAMIRO MARR Address: home [address] [place] [address]
--- OUTSIDE RECORDS SUMMARY | 2023-08-31 08:13 | XMS_ITS | Continuity of Care Document ---
Author Organization [facility] Address [address] [place] [id number]- Care Team Providers Care Warping Mill Operator Name Role Phone Tray BROWN, Robert Anthony Primary Care Physician [place] [facility] [place] 05/22/21 - 06/21/21 [facility] [address] [place] [address]- Allergies, Adverse Reactions, Alerts Substance Reaction Severity [...] 3 Refills, Maintenance, 06/27/20 15:48:00 EST, Solution, [facility] #[id number], 151, cm, 02/05/20 7:35:00 EDT, Height Start [...] 5 Refills, Soft Stop, 05/06/21 17:27:00 EST, [facility] #[id number], 151, cm, 05/05/21 12:08:00 EST,Height Start Date: [...] Replace Required Details, Route to Pharmacy Electronically, [facility], 151, cm, 05/05/21 12:08:00 EST, Height Start Date: 05/23/21 Status: Ordered Hyper-Don 7% inhalation solution 4 mL = 0.28 Gm, Neb, 2 times a day, for 30 days, take with 0.5ml = 2.5 mg albuterol (add hypersal 4ml to 0.5ml albuterol) twice a day, # 240 mL, 11 Refills, Hard Stop 08/02/21 9:58:00 EDT, 08/07/20 9:58:00 EDT, [facility] #[id number], J47.0 [facility]... Start Date: 08/07/20 Stop Date: 08/02/21 Status: Ordered Hyper-Don 7% inhalation solution 4 mL = 0.28 Gm, Neb, 2 times a day, take with 0.5ml = 2.5 mg albuterol (add hypersal 4ml to 0.5ml albuterol) twice a day, # 720 mL, 1 Refills, Maintenance, 08/02/21 9:58:00 EDT, [facility], J47.0 bronchiectasis, 4 mL [...] 1, tablet, By Mouth, Daily, prescribed by [facility] doctor 12/18/20, # [...] Mouth, Daily, # 90 tablet, 0 Refills, [facility] #[id number], 151, cm, 12/27/20 8:19:00 EDT, Height Start [...] 01/10/21 13:45:00 EDT, Route to Pharmacy Electronically, [facility] #[id number], Partial fill upon patientrequest if the prescription is for a schedule II op... Start Date: 01/10/21 Status: Ordered ProAir HFA 90 mcg/inh inhalation aerosol with adapter 2, puffs, Inhalation, 4 times a day, PRN, # 1 each, Refills 6, Tot. Refills 6, Maintenance, 08/26/20 14:10:00 EDT, Route to Pharmacy Electronically, [id number], [facility] #[id number], 151, cm, 08/26/20 13:26:00 EDT, Height Start Date: 08/26/20 Status: Ordered rosuvastatin 5 mg oral tablet 1 tablet = 5 mg, By Mouth, Daily, # 30 tablet, 5 Refills, Maintenance, 04/08/21 9:24:00 EST, Tablet, [facility] #[id number], 151, cm, 03/07/21 9:27:00 EST, Height Start Date: 04/08/21 Stop Date: 10/05/21 Status: Ordered Sodium Chloride, Inhalation 0.9% inhalation solution 4 mL = 0.036 Gm, Neb, 2 times a day, use with 0.5% albuterol solution together in nebulizer, # 240 mL, 6 Refills, Maintenance, 06/12/21 19:39:00 EST, [facility] #[id number], Partial fill upon patient request if the [...] Stop07/04/21 9:31:00 EST, 12/06/20 9:31:00 EDT, Powder, [facility] #[id number], Partial fill upon patient request if the [...]
--- OUTSIDE RECORDS SUMMARY | 2023-08-31 08:13 | XMS_ITS | Continuity of Care Document ---
Author Organization [facility] Address [address] [place] [address]- Care Team Providers Care Clock Repairer Name Role Phone Tray BROWN, Robert Anthony Primary Care Physician Encounter [facility] Date(s): 05/09/20 - 06/08/20 [facility] [address] [place] [address]- Allergies, Adverse Reactions, Alerts Substance Reaction Severity [...] 0 Refills, Soft Stop, 12/27/19 12:56:00 EDT, [facility] #[id number], 151, cm, 11/22/19 11:48:00 EDT,Height, 65.4, kg, 05/02/18 11:04:00 EST, Dry Weight Start Date: 12/27/19 Status: Ordered aspirin 81 mg oral tablet, chewable 81 mg, 1, tablet, By Mouth, Daily, # 90 tablet, Refills 3, Tot. Refills 3, Maintenance, 02/05/20 7:58:00 EDT, Route to Pharmacy Electronically, [facility] #[id number], 151, cm, 02/05/20 7:35:00 EDT, Height, 65.4, kg, 05/02/18 11:04:00 EST, Dry We... Start Date: 02/05/20 Status: Ordered meloxicam 7.5 mg oral tablet 1 tablet = 7.5 mg, By Mouth, Daily, # 90 tablet, 1 Refills, Maintenance, 01/05/20 8:12:00 EDT, Tablet, [facility] #[id number], 151, cm, 11/22/19 11:48:00 EDT, Height, 65.4, [...] 05/17/19 14:49:00 EST, Route to Pharmacy Electronically, [id number], [facility] #[id number], 151, cm, 05/17/19 14:23:00 EST, Hei... Start [...] 05/07/20 13:57:00 EST, Route to Pharmacy Electronically, [facility] #[id number], 151, cm, 02/05/20 7:35:00 EDT, Height Start [...]
--- OUTSIDE RECORDS SUMMARY | 2023-08-31 08:13 | XMS_ITS | Continuity of Care Document ---
Author Organization [facility] Address [address] [place] [address]- Care Team Providers Care Boat Hop Name Role Phone Tray BROWN, Robert Anthony Primary Care Physician Encounter [facility] Date(s): 03/13/22 - 04/12/22 [facility] [address] [place] [address]- Allergies, Adverse Reactions, Alerts Substance Reaction Severity Status codeine Active tetanus toxoid Active sulfa drugs Active Immunizations Given and Recorded Vaccine Date Status Refusal Reason Influenza Virus Vaccine (oldterm) 1 02/03/22 Recor ded SARS-CoV-2 mRNA (wewskdo-lpyt-vyote) vax 08/06/21 Recorded SARS-CoV-2 (COVID-19) mRNA BNT-162b2 [...] 06/20/12 Recorde d 1Result Comment: influenza at [facility] 2Location History: [facility] 3Location History: [facility] 4Result Comment: [06/19/2016] [facility] 5Result Comment: [06/19/2016] [facility] 6Early/Late Reason: Other : 7Result Comment: [06/19/2016] [facility] 8Result Comment: [06/19/2016] [facility] 9Result Comment: [06/19/2016] [facility] 10Result Comment: [06/19/2016] [facility] Medications albuterol 0.083% inhalation solution 3 mL, Inhalation, Every 6 hours, USE ACAPELLA DEVICE AFTER EVERY TREATMENT., # 360 mL, 5 Refills, [facility] #[id number], 151, cm, 09/29/21 13:12:00 EDT, Height, 61.69, kg, 09/29/21 13:11:00 EDT, Dry Weight Start Date: 11/13/21 Status: Ordered amoxicillin 500 mg oral capsule 4 capsule = 2,000 mg, By Mouth, Once, take 4 capsules prior to dental procedure, # 4 capsule, 5 Refills, Soft Stop, 03/09/22 6:10:00 EST, [facility] #[id number], 151, cm, 02/11/22 8:43:00 EDT, Height, 61.69, kg, 09/29/21 13:11:00 EDT, Dry Weight Start Date: 03/09/22 Status: Ordered Azithromycin 5 Day Dose Pack 250 mg oral tablet See Instructions, as directed on package labeling, # 6 tablet, 0 Refills, Maintenance, 04/08/22 10:23:00 EST, Tablet, [facility] #[id number], Partial fill upon patient request if the [...] mL, 1 Refills, Maintenance, 07/28/22 9:58:00 EDT, [facility] #84631, J47.0 bronchiectasis, 4 mL Neb 2 times... Start Date: 07/28/22 Status: Ordered Lasix 40 mg oral tablet 1, tablet, By Mouth, Daily, # 90 Unknown, Refills 3, Route to Pharmacy Electronically, [facility], 151, cm, 09/29/21 13:12:00 EDT, Height, [...] Acute 05/02/22 10:23:00 EST, 04/08/22 10:23:00 EST, [facility] #[id number], Partial fill upon patient request if the prescription is for a... Start Date: 04/08/22 Stop Date: 05/02/22 Status: Ordered ProAir HFA 90 mcg/inh inhalation aerosol with adapter 2, puffs, Inhalation, 4 times a day, PRN, # 1 each, Refills 5, Tot. Refills 5, Maintenance, 10/17/21 15:25:00 EDT, Route to Pharmacy Electronically, [id number], [facility] #72635, 151, cm, 09/29/21 13:12:00 EDT, Hei... Start Date: 10/17/21 Status: Ordered Sodium Chloride, Inhalation 0.9% inhalation solution 4 mL = 0.036 Gm, Neb, 2 times a day, use with 0.5% albuterol solution together in nebulizer, # 240 mL, 6 Refills, Maintenance, 06/12/21 19:39:00 EST, [facility] #34860, Partial fill upon patient request if the [...] chart review meeting GFR criteria 5[place] [facility] [place] Cardiac MRI: LVEF 44%; 12/16/20 [place] [facility] [place] LVEF=40-45% 10885-Bmvymesta as lung mass. S/P R-CHOP x 6 cycles. Social History Social History Type Response Smoking Status Former smoker entered on: 09/06/14 Sex Patient Care team information Care Team Personnel Name: Francoise Black RN Position: S RN Member Role: Primary Care Nurse Name: Chiqui Stoll RN Position: S RN Member Role: Primary Care Nurse Name: Robert Feliz MD Position: [facility] Primary Care Physician Member Role: PCP Address: Address: [address] [place] [address]- Care Team Related Persons Name: RAMIRO MARR Address: home [address] [place] [id number]
--- OUTSIDE RECORDS SUMMARY | 2023-08-31 08:13 | XMS_ITS | Continuity of Care Document ---
Author Organization [facility] Address [address] [place] [address]- Care Team Providers Care Seismic Survey Assistant Name Role Phone Tray BROWN, Robert Anthony Primary Care Physician Encounter [facility] [place] Date(s): 06/11/21 - 07/11/21 [facility] Adult [address] [place] [address]- Attending Physician: Adithya Sheth Admitting Physician: AdmAdithya [...] 3 Refills, Maintenance, 06/27/20 15:48:00 EST, Solution, [facility] #45845, 151, cm, 02/05/20 7:35:00 EDT, Height Start [...] 5 Refills, Soft Stop, 05/06/21 17:27:00 EST, [facility] #81483, 151, cm, 05/05/21 12:08:00 EST,Height Start Date: [...] Replace Required Details, Route to Pharmacy Electronically, [facility], 151, cm, 05/05/21 12:08:00 EST, Height Start Date: 05/23/21 Status: Ordered Hyper-Don 7% inhalation solution 4 mL = 0.28 Gm, Neb, 2 times a day, for 30 days, take with 0.5ml = 2.5 mg albuterol (add hypersal 4ml to 0.5ml albuterol) twice a day, # 240 mL, 11 Refills, Hard Stop 08/02/21 9:58:00 EDT, 08/07/20 9:58:00 EDT, [facility]79344, [facility] Start Date: 08/07/20 Stop Date: 08/02/21 Status: Ordered Hyper-Don 7% inhalation solution 4 mL = 0.28 Gm, Neb, 2 times a day, take with 0.5ml = 2.5 mg albuterol (add hypersal 4ml to 0.5ml albuterol) twice a day, # 720 mL, 1 Refills, Maintenance, 08/02/21 9:58:00 EDT, [facility], J47.0 bronchiectasis, 4 mL Neb [...] 1, tablet, By Mouth, Daily, prescribed by [facility] doctor 12/18/20, # 90 tablet, Refills [...] Mouth, Daily, # 90 tablet, 0 Refills, [facility] #29725, 151, cm, 12/27/20 8:19:00 EDT, Height Start [...] 01/10/21 13:45:00 EDT, Route to Pharmacy Electronically, [facility] #47022, Partial fill upon patientrequest if the prescription is for a schedule II op... Start Date: 01/10/21 Status: Ordered ProAir HFA 90 mcg/inh inhalation aerosol with adapter 2, puffs, Inhalation, 4 times a day, PRN, # 1 each, Refills 6, Tot. Refills 6, Maintenance, 08/26/20 14:10:00 EDT, Route to Pharmacy Electronically, [id number], [facility] #83543, 151, cm, 08/26/20 13:26:00 EDT, Height Start Date: 08/26/20 Status: Ordered rosuvastatin 5 mg oral tablet 1 tablet = 5 mg, By Mouth, Daily, # 30 tablet, 5 Refills, Maintenance, 04/08/21 9:24:00 EST, Tablet, [facility] #59434, 151, cm, 03/07/21 9:27:00 EST, Height Start Date: 04/08/21 Stop Date: 10/05/21 Status: Ordered Sodium Chloride, Inhalation 0.9% inhalation solution 4 mL = 0.036 Gm, Neb, 2 times a day, use with 0.5% albuterol solution together in nebulizer, # 240 mL, 6 Refills, Maintenance, 06/12/21 19:39:00 EST, [facility] #33595, Partial fill upon patient request if the [...]
--- OUTSIDE RECORDS SUMMARY | 2023-08-31 08:14 | XMS_ITS | Continuity of Care Document ---
Author Organization [facility] Address [address] [place] [address]- Care Team Providers Care Union Representative Name Role Phone Tray BROWN, Robert Anthony Primary Care Physician [phone] Encounter [facility] [place] Date(s): 07/18/21 - 08/17/21 [facility] [address] [place] [address]- [place] Allergies, Adverse Reactions, Alerts Substance Reaction [...] 23-valent vaccine 9 06/20/12 Recorded 1Location History: [facility] 2Location History: [facility] 3Result Comment: [06/19/2016] [facility] 4Result Comment: [06/19/2016] [facility] 5Early/Late Reason: Other : 6Result Comment: [06/19/2016] [facility] 7Result Comment: [06/19/2016] [facility] 8Result Comment: [06/19/2016] [facility] 9Result Comment: [06/19/2016] [facility] Medications albuterol 0.083% inhalation solution 3 mL = 2.5 mg, Inhalation, Every 6 hours, use Acapella device after every treatment, # 120 each, 3 Refills, Maintenance, 06/27/20 15:48:00 EST, Solution, [facility] #[id number], 151, cm, 02/05/20 7:35:00 EDT, Height Start [...] 5 Refills, Soft Stop, 05/06/21 17:27:00 EST, [facility] #[id number], 151, cm, 05/05/21 12:08:00 EST,Height Start Date: [...] mL, 1 Refills, Maintenance, 07/28/22 9:58:00 EDT, [facility] #28395, J47.0 bronchiectasis, 4 mL Neb 2 times... Start Date: 07/28/22 Status: Ordered Hyper-Don 7% inhalation solution 4 mL = 0.28 Gm, Neb, 2 times a day, take with 0.5ml = 2.5 mg albuterol (add hypersal 4ml to 0.5ml albuterol) twice a day, # 720 mL, 1 Refills, Hard Stop 07/28/22 9:58:00 EDT, 08/02/21 9:58:00 EDT, [facility], J47.0 bronchiectasis, 151, cm,... Start Date: 08/02/21 Stop Date: 07/28/22 Status: Ordered Imodium Capsule 2 mg, By Mouth, Every 4 hours, Refills 0, Maintenance, 05/05/21 12:12:00 EST, Partial fill upon patient request if the prescription is for a schedule II opioid drug. Start Date: 05/05/21 Status: Ordered Lasix 40 mg oral tablet 40 mg, 1, tablet, By Mouth, Daily, prescribed by [facility] [place] doctor 12/18/20, # 90 tablet, Refills 1, [...] 06/12/21 13:52:00 EST, Route to Pharmacy Electronically, [facility], 151, cm, 06/11/21 13:48:00 EST, Height Start Date: 06/12/21 Stop Date: 06/07/22 Status: Ordered meloxicam 7.5 mg oral tablet 1 tablet, By Mouth, Daily, # 90 tablet, 0 Refills, [facility] #80748, 151, cm, 12/27/20 8:19:00 EDT, Height Start [...] 01/10/21 13:45:00 EDT, Route to Pharmacy Electronically, [facility] #[id number], Partial fill upon patientrequest if the prescription is for a schedule II op... Start Date: 01/10/21 Status: Ordered ProAir HFA 90 mcg/inh inhalation aerosol with adapter 2, puffs, Inhalation, 4 times a day, PRN, # 1 each, Refills 6, Tot. Refills 6, Maintenance, 08/26/20 14:10:00 EDT, Route to Pharmacy Electronically, [id number], [facility] #28895, 151, cm, 08/26/20 13:26:00 EDT, Height Start Date: 08/26/20 Status: Ordered rosuvastatin 5 mg oral tablet 1 tablet = 5 mg, By Mouth, Daily, # 30 tablet, 5 Refills, Maintenance, 04/08/21 9:24:00 EST, Tablet, [facility] #02805, 151, cm, 03/07/21 9:27:00 EST, Height Start Date: 04/08/21 Stop Date: 10/05/21 Status: Ordered Sodium Chloride, Inhalation 0.9% inhalation solution 4 mL = 0.036 Gm, Neb, 2 times a day, use with 0.5% albuterol solution together in nebulizer, # 240 mL, 6 Refills, Maintenance, 06/12/21 19:39:00 EST, [facility] #[id number], Partial fill upon patient request if the [...]
--- OUTSIDE RECORDS SUMMARY | 2023-08-31 08:14 | XMS_ITS | Continuity of Care Document ---
Author Organization [facility] Address [address] [place] [address]- Care Team Providers Care Application Security Architect Name Role Phone Tray BROWN, Robert Anthony Primary Care Physician [place] [facility] [place]21 [place] 09/19/21 [facility] Adult [address] [place] [address]- Allergies, Adverse Reactions, Alerts Substance Reaction Severity [...] vaccine 9 06/20/12 Recorded 1Location History: [facility] 2Location History: [facility] 3Result Comment: [06/19/2016] [facility] 4Result Comment: [06/19/2016] [facility] 5Early/Late Reason: Other : 6Result Comment: [06/19/2016] [facility] 7Result Comment: [06/19/2016] [facility] 8Result Comment: [06/19/2016] [facility] 9Result Comment: [06/19/2016] [facility] Medications albuterol 0.083% inhalation solution 3 mL, Inhalation, Every 6 hours, USE ACAPELLA DEVICE AFTER EVERY TREATMENT., # 360 mL, 0 Refills, [email or web address] #[id number], 151, cm, 06/11/21 13:48:00 EST, Height Start Date: 08/18/21 Status: Ordered albuterol 5 mg/mL (0.5%) inhalation solution 0.5 mL = 2.5 mg, Inhalation, Every 6 hours, PRN for wheezing, # 20 mL, 11 Refills, Maintenance, 08/26/21 14:10:00 EDT, Solution, [email or web address] #[id number], Partial fill upon patient request if the prescription is for a schedule II opioid drug., 151,... Start Date: 08/26/21 Status: Ordered amoxicillin 500 mg oral capsule 4 capsule = 2,000 mg, By Mouth, Once, take 4 capsules prior to dental procedure, # 4 capsule, 5 Refills, Soft Stop, 05/06/21 17:27:00 EST, [email or web address] #33834, 151, cm, 05/05/21 12:08:00 EST,Height Start Date: [...] Replace Required Details, [facility], [facility], 151, cm, 05/05/21 12:08:00 EST, Height Start Date: 05/23/21 Status: Ordered Hyper-Don 7% inhalation solution 4 mL = 0.28 Gm, Neb, 2 times a day, take with 0.5ml = 2.5 mg albuterol (add hypersal 4ml to 0.5ml albuterol) twice a day J47.0, # 720 mL, 1 Refills, Maintenance, 07/28/22 9:58:00 EDT, [email or web address] #07918, J47.0 bronchiectasis, 4 mL Neb 2 times... Start Date: 07/28/22 Status: Ordered Hyper-Don 7% inhalation solution 4 mL = 0.28 Gm, Neb, 2 times a day, take with 0.5ml = 2.5 mg albuterol (add hypersal 4ml to 0.5ml albuterol) twice a day, # 720 mL, 1 Refills, Hard Stop 07/28/22 9:58:00 EDT, 08/02/21 9:58:00 EDT, [facility], J47.0 bronchiectasis, 151, cm,... [...] tablet, By Mouth, Daily, prescribed by [facility] doctor 12/18/20, [...] 06/12/21 13:52:00 EST, Route to Pharmacy Electronically, [facility], 151, cm, 06/11/21 13:48:00 EST, Height Start Date: 06/12/21 Stop Date: 06/07/22 Status: Ordered meloxicam 7.5 mg oral tablet 1 tablet, By Mouth, Daily, # 90 tablet, 0 Refills, [facility] #[id number], 151, cm, 12/27/20 8:19:00 EDT, Height Start [...] 01/10/21 13:45:00 EDT, Route to Pharmacy Electronically, [facility] #[id number], Partial fill upon patientrequest if the prescription is for a schedule II op... Start Date: 01/10/21 Status: Ordered rosuvastatin 5 mg oral tablet 1 tablet = 5 mg, By Mouth, Daily, # 30 tablet, 5 Refills, Maintenance, 04/08/21 9:24:00 EST, Tablet, [facility] #23026, 151, cm, 03/07/21 9:27:00 EST, Height Start Date: 04/08/21 Stop Date: 10/05/21 Status: Ordered Sodium Chloride, Inhalation 0.9% inhalation solution 4 mL = 0.036 Gm, Neb, 2 times a day, use with 0.5% albuterol solution together in nebulizer, # 240 mL, 6 Refills, Maintenance, 06/12/21 19:39:00 EST, [email or web address] #[id number], Partial fill upon patient request if the [...]
--- OUTSIDE RECORDS SUMMARY | 2023-08-31 08:14 | XMS_ITS | Continuity of Care Document ---
Author Organization [facility] Address [address] [place] [address]- Care Team Providers Care Press Cutter Name Role Phone Tray BROWN, Robert Anthony Primary Care Physician [phone] Encounter [facility] Date(s): 04/05/23 - 05/05/23 [facility] Adult [address] [place] [address]- Allergies, Adverse Reactions, Alerts Substance Reaction Severity [...] virus vaccine, inactivated 6 02/09/12 Re corded [id number] 12y+ bivalent booster vax 08/15/22 Recorded Influenza Virus Vaccine (oldterm) 7 02/03/22 Recor ded SARS-CoV-2 mRNA (bkqwloi-obuq-spriq) vax 08/06/21 Recorded SARS-CoV-2 (COVID-19) mRNA BNT-162b2 [...] Comment: [06/19/2016] [facility] 7Result Comment: influenza at [facility] 8Result Comment: [06/19/2016] [facility] 9Result Comment: [06/19/2016] [facility] 10Result Comment: [06/19/2016] [facility] Medications albuterol 0.083% inhalation solution 3 mL, Inhalation, Every 6 hours, USE ACAPELLA DEVICE AFTER EVERY TREATMENT. J44.9, # 360 mL, 5 Refills, 01/18/23 8:59:00 EDT, [facility] #[id number], J44.9, 150, cm, 01/11/23 10:59:00 EDT, Height, 61, kg, 04/17/22 11:31:00 EST, Dry Weight Start Date: 01/18/23 Status: Ordered bisoprolol 5 mg oral tablet See Instructions, TAKE 1/2 TABLET DAILY, # 45 Unknown, 0 Refills, Maintenance, 02/22/23 7:49:00 EDT, [facility], 150, cm, 01/11/23 10:59:00 EDT, Height, 61, kg, 04/17/22 11:31:00 EST, Dry Weight Start Date: 02/22/23 Status: Ordered clopidogrel 75 mg oral tablet See Instructions, TAKE 1 TABLET DAILY, # 90 Unknown, Refills 0, Maintenance, 02/22/23 7:49:00 EDT, Instructions Replace Required Details, Route to Pharmacy Electronically, [facility], 150, cm, 01/11/23 10:59:00 EDT, Height, [...] 10/17/21 15:25:00 EDT, Route to Pharmacy Electronically, [id number], [facility] #[id number], 151, cm, 09/29/21 13:12:00 EDT, Hei... Start [...] mL, 5 Refills, Maintenance, 02/11/23 9:46:00 EDT, [facility] #21501, USE 4 ML VIANEBULIZER TWICE DAILY USE [...] chart review meeting GFR criteria 6[place] [facility] [place]. Cardiac MRI: LVEF 44%; 12/16/20 [place] [facility]: LVEF=40-45% 8Per CT w/contrast 12/19/2021: Irregular partially calcified tissue along the distal left main pulmonary artery extending along the regular small caliber left lower lobe pulmonary artery branch probably reflecting chronic thrombus.. [id number]-[id number] as lung mass. S/P R-CHOP x 6 cycles. Social History Social History Type Response Smoking Status Former smoker entered on: 09/06/14 Sex Patient Care team information Care Team Personnel Name: Manuel Mayes MD Position: [facility] Physician - Pulm/Critical Care Member Role: Secretary Board Of Commissioners Address: Address: [address] [place] [address] [address] [facility] [place] [address]- [place] Name: Kenneth Chowdary MD Position: [facility] Cardiology MD Member Role: Data Management Address: Address: [address] [place] [address] [address] [facility] [place] [address]- Name: Robert Feliz MD Position: [facility] Physician - Primary Care Member Role: PCP Address: Address: [address] [place] [address]- [place] Name: Georgette Silva Position: [facility] Soda Dispenser Member Role: Fish Agent Name: Epi Turner Member Role: Neurologist Name: Mariposa BROWN, Zi Méndez Position: Reference Physician Member Role: Metalsmith Address: Address: [address] [place] [address] [address] [facility] [place] [address]- [place] Care Team Related Persons Name: RAMIRO MARR Address: home [address] [place] [address]
--- OUTSIDE RECORDS SUMMARY | 2023-08-31 08:14 | XMS_ITS | Continuity of Care Document ---
Author Organization [facility] Address [address] [place] [address]- Care Team Providers Care Deputy Director Of Nursing Name Role Phone Tray BROWN, Robert Anthony Primary Care Physician Encounter [facility] [place] Date(s): 12/12/21 - 01/11/22 [facility] [address] [place] [address]- Attending Physician: Adithya Sheth Admitting Physician: AdmAdithya de la torre Referring Physician: AdmtrAdithya Allergies, Adverse Reactions, Alerts Substance Reaction Severity Status codeine Active tetanus toxoid Active sulfa drugs Active Immunizations Given and Recorded Vaccine Date Status Refusal Reason SARS-CoV-2 mRNA ([id number]-[id number]-ddfbd) vax 08/06/21 Recorded SARS-CoV-2 (COVID-19) mRNA BNT-162b2 [...] EVERY TREATMENT., # 360 mL, 5 Refills, [facility] #[id number], 151, cm, 09/29/21 13:12:00 EDT, Height, 61.69, kg, 09/29/21 13:11:00 EDT, Dry Weight Start Date: 11/13/21 Status: Ordered bisoprolol 5 mg oral tablet 0.5 tablet = 2.5 mg, By Mouth, Daily, # 45 tablet, 3 Refills, Maintenance, 06/12/21 13:52:00 EST, Tablet, [facility], 151, cm, 06/11/21 13:48:00 EST, Height Start Date: 06/12/21 Stop Date: 06/07/22 Status: Ordered clopidogrel 75 mg oral tablet 1, tablet, By Mouth, Daily, # 90 Unknown, Refills 3, Route to Pharmacy Electronically, [facility], 151, cm, 09/29/21 13:12:00 EDT, Height, 61.69, kg, 09/29/21 13:11:00 EDT, Dry Weight Start Date: 11/05/21 Status: Ordered Hyper-Don 7% inhalation solution 4 mL = 0.28 Gm, Neb, 2 times a day, take with 0.5ml = 2.5 mg albuterol (add hypersal 4ml to 0.5ml albuterol) twice a day J47.0, # 720 mL, 1 Refills, Maintenance, 07/28/22 9:58:00 EDT, [facility] #[id number], J47.0 bronchiectasis, 4 mL Neb 2 times... Start Date: 07/28/22 Status: Ordered Lasix 40 mg oral tablet 1, tablet, By Mouth, Daily, # 90 Unknown, Refills 3, [facility]ically, [facility], 151, cm, 09/29/21 13:12:00 EDT, Height, 61.69, kg, 09/29/21 13:11:00 EDT, Dry Weight Start Date: 11/05/21 Status: Ordered losartan 25 mg oral tablet 12.5 mg, 0.5, tablet, By Mouth, Daily, Take 0.5 tablet (12.5mg) daily, # 45 tablet, Refills 3, Tot.Refills 3, Maintenance, 06/12/21 13:52:00 EST, Route to Pharmacy Electronically, [facility], 151, cm, 06/11/21 13:48:00 EST, Height [...] 10/17/21 15:25:00 EDT, Route to Pharmacy Electronically, [id number], [facility] #[id number], 151, cm, 09/29/21 13:12:00 EDT, Hei... Start Date: 10/17/21 Status: Ordered Sodium Chloride, Inhalation 0.9% inhalation solution 4 mL = 0.036 Gm, Neb, 2 times a day, use with 0.5% albuterol solution together in nebulizer, # 240 mL, 6 Refills, Maintenance, 06/12/21 19:39:00 EST, [facility] #[id number], Partial fill upon patient request if the [...] 1-49% stenosis; LICA 1-49% stenosis 4[place] [facility] [place] Cardiac MRI: LVEF 44%; 12[place]16[place] [facility] [place]VEF[place]40-45% [address]43-Kronpivaj as lung mass. S/P R-CHOP x 6 cycles. Social History Social History Type Response Smoking Status Former smoker entered on: 09/06/14 Sex Care Team Personnel Name: Tray BROWN, Robert Anthony Address: [address] [place] [address] [place] [address]-
--- OUTSIDE RECORDS SUMMARY | 2023-08-31 08:14 | XMS_ITS | Continuity of Care Document ---
Author Organization [facility] Address [address] [place] [address]- Care Team Providers Care Train Planner Name Role Phone Robert Feliz MD Primary Care Physician [phone] [place] [facility] [place] 06/11/21 - 06/18/21 [facility] Adult [address] [place] [address]- Attending Physician: Robert Feliz MD Allergies, Adverse [...] Live 08/31/12 Recorded pneumococcal 23-valent vaccine 9 2/25/13 Recorded 1Location History: [facility] 2Location History: [...] 3 Refills, Maintenance, 06/27/20 15:48:00 EST, Solution, [facility] #[id number], 151, cm, 02/05/20 7:35:00 EDT, Height Start [...] 5 Refills, Soft Stop, 05/06/21 17:27:00 EST, [facility] #79072, 151, cm, 05/05/21 12:08:00 EST,Height Start Date: [...] 3 Refills, Maintenance, 06/12/21 13:52:00 EST, Tablet, [facility], 151, cm, 06/11/21 13:48:00 EST, [...] Stop 08/02/21 9:58:00 EDT, 08/07/20 9:58:00 EDT, [facility] #78124, J47.0 [facility]... Start Date: 08/07/20 Stop Date: 08/02/21 Status: Ordered Hyper-Don 7% inhalation solution 4 mL = 0.28 Gm, Neb, 2 times a day, take with 0.5ml = 2.5 mg albuterol (add hypersal 4ml to 0.5ml albuterol) twice a day, # 720 mL, 1 Refills, Maintenance, 08/02/21 9:58:00 EDT, [facility], J47.0 bronchiectasis, 4 mL [...] 1, tablet, By Mouth, Daily, prescribed by [facility] doctor 12/18/20, # 90 tablet, Refills [...] Mouth, Daily, # 90 tablet, 0 Refills, [facility] #15796, 151, cm, 12/27/20 8:19:00 EDT, Height Start [...] 01/10/21 13:45:00 EDT, Route to Pharmacy Electronically, [facility] #98285, Partial fill upon patientrequest if the prescription is for a schedule II op... Start Date: 01/10/21 Status: Ordered ProAir HFA 90 mcg/inh inhalation aerosol with adapter 2, puffs, Inhalation, 4 times a day, PRN, # 1 each, Refills 6, Tot. Refills 6, Maintenance, 08/26/20 14:10:00 EDT, Route to Pharmacy Electronically, [id number], [facility] #87061, 151, cm, 08/26/20 13:26:00 EDT, Height Start Date: 08/26/20 Status: Ordered rosuvastatin 5 mg oral tablet 1 tablet = 5 mg, By Mouth, Daily, # 30 tablet, 5 Refills, Maintenance, 04/08/21 9:24:00 EST, Tablet, [facility] #73588, 151, cm, 03/07/21 9:27:00 EST, Height Start Date: 04/08/21 Stop Date: 10/05/21 Status: Ordered Sodium Chloride, Inhalation 0.9% inhalation solution 4 mL = 0.036 Gm, Neb, 2 times a day, use with 0.5% albuterol solution together in nebulizer, # 240 mL, 6 Refills, Maintenance, 06/12/21 19:39:00 EST, [facility] #88800, Partial fill upon patient request if the [...] Stop07/04/21 9:31:00 EST, 12/06/20 9:31:00 EDT, Powder, [facility] #31197, Partial fill upon patient request if the [...] oldest [Reference Range]: 1 Height 151 cm (06/11/21 1:48 PM) Weight 62.2 kg (06/11/21 1:48 PM) Oxygen Saturation [94-100 %] 100 % (06/11/21 1:48 PM) Pulse Rate [55-90 bpm] 63 bpm (06/11/21 1:48 PM) Body Mass Index [18.5-24.99] 27.28 *H* (06/11/21 1:48 PM) Blood Pressure [90-138/55-84 mm Hg] 125/ 78mm Hg (06/11/21 1:48 PM) Blood pressure sites Arm, left (06/11/21 1:48 PM) Weight Obtained Via Standing scale (06/11/21 1:48 PM) Social History Social History Type Response Smoking Status Former smoker entered on: 09/06/14 Sex
--- OUTSIDE RECORDS SUMMARY | 2023-08-31 08:14 | XMS_ITS | Continuity of Care Document ---
Author Organization [facility] Address [address] [place] [address]- Care Team Providers Care Wort Extractor Name Role Phone Tray BROWN, Robert Anthony Primary Care Physician [phone] [place] [facility] [place]14/[place] - 12/14/21 [facility] Adult [address] [place] [address]- Allergies, Adverse Reactions, Alerts Substance Reaction Severity Status codeine Active tetanus toxoid Active sulfa drugs Active Immunizations Given and Recorded Vaccine Date Status Refusal Reason SARS-CoV-2 mRNA (jmilmpg-mmie-ffwnv) vax 08/06/21 Recorded SARS-CoV-2 (COVID-19) mRNA BNT-162b2 [...] EVERY TREATMENT., # 360 mL, 5 Refills, [facility] #[id number], 151, cm, 09/29/21 13:12:00 EDT, Height, 61.69, kg, 09/29/21 13:11:00 EDT, Dry Weight Start Date: 11/13/21 Status: Ordered albuterol 0.083% inhalation solution 3 mL, Inhalation, Every 6 hours, USE ACAPELLA DEVICE AFTER EVERY TREATMENT., # 360 mL, 0 Refills, [facility] #[id number], 151, cm, 06/11/21 13:48:00 EST, Height Start Date: 08/18/21 Status: Ordered albuterol 5 mg/mL (0.5%) inhalation solution 0.5 mL = 2.5 mg, Inhalation, Every 6 hours, PRN for wheezing, # 20 mL, 11 Refills, Maintenance, 08/26/21 14:10:00 EDT, Solution, [facility] #46013, Partial fill upon patient request if the prescription is for a schedule II opioid drug., 151,... Start Date: 08/26/21 Status: Ordered amoxicillin 500 mg oral capsule 4 capsule = 2,000 mg, By Mouth, Once, take 4 capsules prior to dental procedure, # 4 capsule, 5 Refills, Soft Stop, 05/06/21 17:27:00 EST, [facility] #[id number], 151, cm, 05/05/21 12:08:00 EST,Height Start Date: [...] 3 Refills, Maintenance, 06/12/21 13:52:00 EST, Tablet, [facility], 151, cm, 06/11/21 13:48:00 EST, Height Start Date: 06/12/21 Stop Date: 06/07/22 Status: Ordered clopidogrel 75 mg oral tablet 1, tablet, By Mouth, Daily, # 90 Unknown, Refills 3, Route to Pharmacy Electronically, [facility], 151, cm, 09/29/21 13:12:00 EDT, Height, 61.69, kg, 09/29/21 13:11:00 EDT, Dry Weight Start Date: 11/05/21 Status: Ordered Hyper-Don 7% inhalation solution 4 mL = 0.28 Gm, Neb, 2 times a day, take with 0.5ml = 2.5 mg albuterol (add hypersal 4ml to 0.5ml albuterol) twice a day J47.0, # 720 mL, 1 Refills, Maintenance, 07/28/22 9:58:00 EDT, [facility] #76652, J47.0 bronchiectasis, 4 mL Neb 2 times... Start Date: 07/28/22 Status: Ordered Hyper-Don 7% inhalation solution 4 mL = 0.28 Gm, Neb, 2 times a day, take with 0.5ml = 2.5 mg albuterol (add hypersal 4ml to 0.5ml albuterol) twice a day, # 720 mL, 1 Refills, Hard Stop 07/28/22 9:58:00 EDT, 08/02/21 9:58:00 EDT, [facility], J47.0 bronchiectasis, 151, cm,... Start [...] Unknown, Refills 3, Route to Pharmacy Electronically, [facility], 151, cm, 09/29/21 13:12:00 EDT, Height, 61.69, kg, 09/29/21 13:11:00 EDT, Dry Weight Start Date: 11/05/21 Status: Ordered losartan 25 mg oral tablet 12.5 mg, 0.5, tablet, By Mouth, Daily, Take 0.5 tablet (12.5mg) daily, # 45 tablet, Refills 3, Tot.Refills 3, Maintenance, 06/12/21 13:52:00 EST, Route to Pharmacy Electronically, [facility], 151, cm, 06/11/21 13:48:00 EST, Height [...] 10/17/21 15:25:00 EDT, Route to Pharmacy Electronically, [id number], [facility] #[id number], 151, cm, 09/29/21 13:12:00 EDT, Hei... Start Date: 10/17/21 Status: Ordered Sodium Chloride, Inhalation 0.9% inhalation solution 4 mL = 0.036 Gm, Neb, 2 times a day, use with 0.5% albuterol solution together in nebulizer, # 240 mL, 6 Refills, Maintenance, 06/12/21 19:39:00 EST, [facility] #[id number], Partial fill upon patient request if the [...] 1-49% stenosis; LICA 1-49% stenosis 4[place] [facility] [place]. Cardiac MRI: LVEF 44%; 12/16/20 echo at [facility] [place]: LVEF=40-45% [id number] as lung mass. S/P R-CHOP x 6 cycles. Social History Social History Type Response Smoking Status Former smoker entered on: 09/06/14 Sex
--- OUTSIDE RECORDS SUMMARY | 2023-08-31 08:14 | XMS_ITS | Continuity of Care Document ---
Author Organization [facility] Address [address] [place] [address]- Care Team Providers Care Barn Worker Name Role Phone Tray BROWN, Robert Anthony Primary Care Physician [place] [facility] [place]26[place]20 - 01/25/21 [facility] [address] [place] [address] Attending Physician: Adithya Sheth Admitting Physician: AdmtrAdithya Referring Physician: Admtr, Ar8 Allergies, Adverse Reactions, Alerts Substance Reaction Severity [...] 3 Refills, Maintenance, 06/27/20 15:48:00 EST, Solution, [facility] #[id number], 151, cm, 02/05/20 7:35:00 EDT, Height Start Date: 06/27/20 Status: Ordered amoxicillin 500 mg oral capsule 4 capsule = 2,000 mg, By Mouth, Once, take 4 capsules prior to dental procedure, # 4 capsule, 0 Refills, Soft Stop, 08/15/20 16:35:00 EDT, [facility] #32429, 151, cm, 02/05/20 7:35:00 EDT, Height Start Date: 08/15/20 Status: Ordered Hyper-Don 7% inhalation solution 4 mL = 0.28 Gm, Neb, 2 times a day, take with 0.5ml = 2.5 mg albuterol (add hypersal 4ml to 0.5ml albuterol) twice a day, # 240 mL, 11 Refills, Maintenance, 08/07/20 9:58:00 EDT, [facility]#74784, J47.0 bronchiectasis, 4 mL Neb 2 times a da... Start Date: 08/07/20 Stop Date: 08/02/21 Status: Ordered Lasix 40 mg oral tablet 40 mg, 1, tablet, By Mouth, Daily, prescribed by [facility] [place] doctor 12/18/20, # 30 tablet, Refills 2, Tot. Refills 2, Maintenance, 01/10/21 13:42:00 EDT, Route to Pharmacy Electronically, [facility] #29323, Partial fill upon patient request if th... Start Date: 01/10/21 Status: Ordered meloxicam 7.5 mg oral tablet 1 tablet, By Mouth, Daily, # 90 tablet, 0 Refills, [facility] #09642, 151, cm, 12/27/20 8:19:00 EDT, Height Start [...] 01/10/21 13:45:00 EDT, Route to Pharmacy Electronically, [facility] #66338, Partial fill upon patientrequest if the prescription is for a schedule II op... Start Date: 01/10/21 Status: Ordered ProAir HFA 90 mcg/inh inhalation aerosol with adapter 2, puffs, Inhalation, 4 times a day, PRN, # 1 each, Refills 6, Tot. Refills 6, Maintenance, 08/26/20 14:10:00 EDT, Route to Pharmacy Electronically, [id number], [facility] #97037, 151, cm, 08/26/20 13:26:00 EDT, Height Start Date: 08/26/20 Status: Ordered Trelegy Ellipta 200 mcg-62.5 mcg-25 mcg/inh inhalation powder 1 puffs, Inhalation, Daily, at the same time every day, # 1 each, 6 Refills, Maintenance, 12/06/20 9:31:00 EDT, Powder, [facility] #65230, Partial fill upon patient request if the [...] oldest [Reference Range]: 1 Height 151 cm (02/08/19 4:03 PM) Weight 63 kg (02/08/19 4:03 PM) Social History Social History Type Response Smoking Status Former smoker entered on: 09/06/14 Sex
--- OUTSIDE RECORDS SUMMARY | 2023-08-31 08:14 | XMS_ITS | Continuity of Care Document ---
Author Organization [facility] Address [address] [place] [address]- Care Team Providers Care Carver Hand Name Role Phone Tray BROWN, Robert Anthony Primary Care Physician [phone] [place] [facility] [place]s): 12/30/21 - 01/29/22 [facility] [address] [facility] [address] [place] [address]- Allergies, Adverse Reactions, Alerts Substance Reaction Severity Status codeine Active tetanus toxoid Active sulfa drugs Active Immunizations Given and Recorded Vaccine Date Status Refusal Reason SARS-CoV-2 mRNA (vsjnvrw-uesk-vzlnm) vax 08/06/21 Recorded SARS-CoV-2 (COVID-19) mRNA BNT-162b2 [...] vaccine 9 06/20/12 Recorded 1Location History: [facility] 2Location History: [facility] 3Result Comment: [06/19/2016] [facility] 4Result Comment: [06/19/2016] [facility] 5Early/Late Reason: Other : 6Result Comment: [06/19/2016] [facility] 7Result Comment: [06/19/2016] [facility] 8Result Comment: [06/19/2016] [facility] 9Result Comment: [06/19/2016] [facility] Medications albuterol 0.083% inhalation solution 3 mL, Inhalation, Every 6 hours, USE ACAPELLA DEVICE AFTER EVERY TREATMENT., # 360 mL, 5 Refills, [facility] #[id number], 151, cm, 09/29/21 13:12:00 EDT, Height, 61.69, [...] Unknown, Refills 3, Route to Pharmacy Electronically, [facility], 151, cm, 09/29/21 13:12:00 EDT, Height, [...] mL, 1 Refills, Maintenance, 07/28/22 9:58:00 EDT, [facility] #70131, J47.0 bronchiectasis, 4 mL Neb 2 times... Start Date: 07/28/22 Status: Ordered Lasix 40 mg oral tablet 1, tablet, By Mouth, Daily, # 90 Unknown, Refills 3, Route to Pharmacy Electronically, [facility], 151, cm, 09/29/21 13:12:00 EDT, Height, 61.69, kg, 09/29/21 13:11:00 EDT, Dry Weight Start Date: 11/05/21 Status: Ordered losartan 25 mg oral tablet 12.5 mg, 0.5, tablet, By Mouth, Daily, Take 0.5 tablet (12.5mg) daily, # 45 tablet, Refills 3, Tot.Refills 3, Maintenance, 06/12/21 13:52:00 EST, Route to Pharmacy Electronically, [facility], 151, cm, 06/11/21 13:48:00 EST, [...] 10/17/21 15:25:00 EDT, Route to Pharmacy Electronically, [id number], [facility] #73296, 151, cm, 09/29/21 13:12:00 EDT, Hei... Start Date: 10/17/21 Status: Ordered Sodium Chloride, Inhalation 0.9% inhalation solution 4 mL = 0.036 Gm, Neb, 2 times a day, use with 0.5% albuterol solution together in nebulizer, # 240 mL, 6 Refills, Maintenance, 06/12/21 19:39:00 EST, [facility] #[id number], Partial fill upon patient request if the [...] chart review meeting GFR criteria 5[place] [facility] [place]. Cardiac MRI: LVEF 44%; 12/16/20 echo at [facility]: LVEF=40-45% [id number]-[id number] as lung mass. S/P R-CHOP x 6 cycles. Social History Social History Type Response Smoking Status Former smoker entered on: 09/06/14 Sex Patient Care team information Personnel Name: Tray BROWN, Robert Anthony Address: Address: [address] [place] [address]
--- OUTSIDE RECORDS SUMMARY | 2023-08-31 08:14 | XMS_ITS | Continuity of Care Document ---
Author Organization [facility] Address [address] [place] [address]- Care Team Providers Care Search Strategist Name Role Phone Tray BROWN, Robert Anthony Primary Care Physician [phone] [place] [facility] [place] Date(s): 10/03/19 - 11/02/19 [facility] [address] [place] [address]- [facility] Attending Physician: Admtr, Samuel8 Admitting Physician: Admtr, Ar8 Referring Physician: Admtr, Ar8 Allergies, Adverse Reactions, [...] Recorded 1Location History: [facility] 2Location History: [facility] 3Result Comment: [06/19/2016] JAN[facility] 4Result Comment: [06/19/2016] [facility] 5Early/Late Reason: Other : 6Result Comment: [06/19/2016] JANET 7Result Comment: [06/19/2016] [facility] 8Result Comment: [06/19/2016] jatinnd 9Result Comment: [06/19/2016] JANET Medications amoxicillin 500 mg oral capsule 4 capsule = 2,000 mg, By Mouth, Once, take 4 capsules prior to dental procedure, # 4 capsule, 0 Refills, Soft Stop, 10/29/17 13:54:04 EDT Start Date: 10/29/17 Status: Ordered meloxicam 7.5 mg oral tablet 1 tablet = 7.5 mg, By Mouth, Daily, # 90 tablet, 1 Refills, Maintenance, 06/01/19 12:03:00 EST, Tablet, [facility] #73626, 151, cm, 05/23/19 11:27:00 EST, Height, 65.4, [...] 10/03/18 15:01:00 EDT, Route to Pharmacy Electronically, [id number], [facility], J47.9 Start Date: 10/03/18 Status: Ordered ProAir HFA 90 mcg/inh inhalation aerosol with adapter 2, puffs, Inhalation, 4 times a day, PRN, # 1 each, Refills 6, Tot. Refills 6, Maintenance, 05/17/19 14:49:00 EST, Route to Pharmacy Electronically, [id number], [facility] #19648, 151, cm, 05/17/19 14:23:00 EST, Hei... Start [...]
--- OUTSIDE RECORDS SUMMARY | 2023-08-31 08:14 | XMS_ITS | Continuity of Care Document ---
Author Organization [facility] Address [address] [address]- Care Team Providers Care Practice Coordinator Name Role Phone Tray BROWN, Robert Anthony Primary Care Physician Encounter [facility] Date(s): 11/16/19 - 12/16/19 [facility] [address] [address]- [place] Allergies, Adverse Reactions, Alerts Substance Reaction Severity [...] # 4 capsule, 0 Refills, Soft Stop, 12/11/19 16:36:00 EDT, [facility] #80156, 151, cm, 11/22/19 11:48:00 EDT,Height, 65.4, kg, 05/02/18 11:04:00 EST, Dry Weight Start Date: 12/11/19 Status: Ordered meloxicam 7.5 mg oral tablet 1 tablet = 7.5 mg, By Mouth, Daily, # 90 tablet, 1 Refills, Maintenance, 06/01/19 12:03:00 EST, Tablet, [facility] #04306, 151, cm, 05/23/19 11:27:00 EST, Height, 65.4, [...] 10/03/18 15:01:00 EDT, Route to Pharmacy Electronically, [id number], [facility]28, J47.9 Start Date: 10/03/18 Status: Ordered ProAir HFA 90 mcg/inh inhalation aerosol with adapter 2, puffs, Inhalation, 4 times a day, PRN, # 1 each, Refills 6, Tot. Refills 6, Maintenance, 05/17/19 14:49:00 EST, Route to Pharmacy Electronically, [id number], [facility] #[id number], 151, cm, 05/17/19 14:23:00 EST, Hei... Start [...]
--- OUTSIDE RECORDS SUMMARY | 2023-08-31 08:14 | XMS_ITS | Continuity of Care Document ---
Author Organization [facility] lt Address [address] [place] [address]- Care Team Providers Care Forensic Economist Name Role Phone Tray BROWN, Robert Anthony Primary Care Physician Encounter [facility] [place] Date(s): 08/15/20 - 09/14/20 [facility] Adult [address] [place] [address]- Allergies, Adverse Reactions, Alerts Substance Reaction Severity [...] 3Result Comment: [06/19/2016] ABBY 4Result Comment: [06/19/2016] gaylebekaila 5Early/Late Reason: Other : 6Result Comment: [06/19/2016] ABBY 7Result Comment: [06/19/2016] abby 8Result Comment: [06/19/2016] gaylebekaila 9Result Comment: [06/19/2016] [facility] Medications albuterol 0.083% inhalation solution 3 mL = 2.5 mg, Inhalation, Every 6 hours, use Acapella device after every treatment, # 120 each, 3 Refills, Maintenance, 06/27/20 15:48:00 EST, Solution, [facility] #57787, 151, cm, 02/05/20 7:35:00 EDT, Height Start Date: 06/27/20 Status: Ordered amoxicillin 500 mg oral capsule 4 capsule = 2,000 mg, By Mouth, Once, take 4 capsules prior to dental procedure, # 4 capsule, 0 Refills, Soft Stop, 08/15/20 16:35:00 EDT, [facility] #41460, 151, cm, 02/05/20 7:35:00 EDT, Height Start Date: 08/15/20 Status: Ordered aspirin 81 mg oral tablet, chewable 81 mg, 1, tablet, By Mouth, Daily, # 90 tablet, Refills 3, Tot. Refills 3, Maintenance, 02/05/20 7:58:00 EDT, Route to Pharmacy Electronically, [facility] #92135, 151, cm, 02/05/20 7:35:00 EDT, Height, 65.4, kg, 05/02/18 11:04:00 EST, Dry We... Start Date: 02/05/20 Status: Ordered Hyper-Don 7% inhalation solution 4 mL = 0.28 Gm, Neb, 2 times a day, take with 0.5ml = 2.5 mg albuterol (add hypersal 4ml to 0.5ml albuterol) twice a day, # 240 mL, 11 Refills, Maintenance, 08/07/20 9:58:00 EDT, [facility]#98018, J47.0 bronchiectasis, 4 mL Neb 2 times a da... Start Date: 08/07/20 Stop Date: 08/02/21 Status: Ordered Macrobid macrocrystals-monohydrate 100 mg oral capsule 1 capsule = 100 mg, By Mouth, 2 times a day, for 7 days, # 14 capsule, 0 Refills, Acute 09/17/20 17:06:00 EDT, 09/10/20 17:06:00 EDT, Capsule, [facility] #65116, 151, cm, 09/09/20 9:14:00 EDT, Height Start Date: 09/10/20 Stop Date: 09/17/20 Status: Ordered meloxicam 7.5 mg oral tablet 1 tablet, By Mouth, Daily, # 90 tablet, 0 Refills, Maintenance, 07/01/20 12:15:00 EST, [facility] #95130, 151, cm, 02/05/20 7:35:00 EDT, Height Start [...] 08/26/20 14:10:00 EDT, Route to Pharmacy Electronically, [id number], [facility] #79612, 151, cm, 08/26/20 13:26:00 EDT, Height Start [...]
--- OUTSIDE RECORDS SUMMARY | 2023-08-31 08:14 | XMS_ITS | Continuity of Care Document ---
Author Organization [facility] Address [address] [place] [address]- Care Team Providers Care Podiatric Physician Name Role Phone Tray BROWN, Robert Anthony Primary Care Physician Encounter [facility] [place] Date(s): 01/14/22 - 02/13/22 [facility] [address] [facility] [address] [place] [address]- Allergies, Adverse Reactions, Alerts Substance Reaction Severity Status codeine Active tetanus toxoid Active sulfa drugs Active Immunizations Given and Recorded Vaccine Date Status Refusal Reason Influenza Virus Vaccine (oldterm) 1 02/03/22 Recor ded SARS-CoV-2 mRNA (uskhbic-wpcz-ipmgl) vax 08/06/21 Recorded SARS-CoV-2 (COVID-19) mRNA BNT-162b2 [...] 06/20/12 Recorde d 1Result Comment: influenza at [facility] 2Location History: Agustina Albert 3Location History: MANJUS 4Result Comment: [06/19/2016] [place] 5Result Comment: [06/19/2016] riverbend 6Early/Late Reason: Other : 7Result Comment: [06/19/2016] [place] 8Result Comment: [06/19/2016] riverbend 9Result Comment: [06/19/2016] riverbend 10Result Comment: [06/19/2016] [place] Medications albuterol 0.083% inhalation solution 3 mL, Inhalation, Every 6 hours, USE ACAPELLA DEVICE AFTER EVERY TREATMENT., # 360 mL, 5 Refills, [facility] #[id number], 151, cm, 09/29/21 13:12:00 EDT, Height, 61.69, kg, 09/29/21 13:11:00 EDT, Dry Weight Start Date: 11/13/21 Status: Ordered bisoprolol 5 mg oral tablet 0.5 tablet = 2.5 mg, By Mouth, Daily, # 45 tablet, 3 Refills, Maintenance, 06/12/21 13:52:00 EST, Tablet, [facility], 151, cm, 06/11/21 13:48:00 EST, Height Start Date: 06/12/21 Stop Date: 06/07/22 Status: Ordered clopidogrel 75 mg oral tablet 1, tablet, By Mouth, Daily, # 90 Unknown, Refills 3, Route to Pharmacy Electronically, [facility], 151, cm, 09/29/21 13:12:00 EDT, Height, 61.69, kg, 09/29/21 13:11:00 EDT, Dry Weight Start Date: 11/05/21 Status: Ordered Hyper-Don 7% inhalation solution 4 mL = 0.28 Gm, Neb, 2 times a day, take with 0.5ml = 2.5 mg albuterol (add hypersal 4ml to 0.5ml albuterol) twice a day J47.0, # 720 mL, 1 Refills, Maintenance, 07/28/22 9:58:00 EDT, [facility] #[id number], J47.0 bronchiectasis, 4 mL Neb 2 times... Start Date: 07/28/22 Status: Ordered Lasix 40 mg oral tablet 1, tablet, By Mouth, Daily, # 90 Unknown, Refills 3, [facility] to Pharmacy Electronically, [facility], 151, cm, 09/29/21 13:12:00 EDT, Height, 61.69, kg, 09/29/21 13:11:00 EDT, Dry Weight Start Date: 11/05/21 Status: Ordered losartan 25 mg oral tablet 12.5 mg, 0.5, tablet, By Mouth, Daily, Take 0.5 tablet (12.5mg) daily, # 45 tablet, Refills 3, Tot.Refills 3, Maintenance, 06/12/21 13:52:00 EST, Route to Pharmacy Electronically, [facility], 151, cm, 06/11/21 13:48:00 EST, Height [...] 10/17/21 15:25:00 EDT, Route to Pharmacy Electronically, [id number], [facility] #[id number], 151, cm, 09/29/21 13:12:00 EDT, Hei... Start Date: 10/17/21 Status: Ordered Sodium Chloride, Inhalation 0.9% inhalation solution 4 mL = 0.036 Gm, Neb, 2 times a day, use with 0.5% albuterol solution together in nebulizer, # 240 mL, 6 Refills, Maintenance, 06/12/21 19:39:00 EST, [facility] #[id number], Partial fill upon patient request if the [...] review meeting GFR criteria 5Admission to [facility] for CHF 11/2020. Cardiac MRI: LVEF 44%; 12/16/20 echo at [facility]: LVEF=40-45% [id number]-Qsfpqvciz as lung mass. S/P R-CHOP x 6 cycles. Social History Social History Type Response Smoking Status Former smoker entered on: 09/06/14 Sex Patient Care team information Personnel Name: Robert Feliz MD Address: Address: [address] [place] [address]-
--- OUTSIDE RECORDS SUMMARY | 2023-08-31 08:14 | XMS_ITS | Continuity of Care Document ---
Author Organization [facility] Address [address] [id number]- Care Team Providers Care Stadium Manager Name Role Phone Robert Feliz MD Primary Care Physician [phone] Encounter [facility] [place] Date(s): 04/21/19 - 08/19/19 [facility] [address] [address]- [place] Attending Physician: Mor Diaz MD Admitting Physician: Mor Diaz MD Referring Physician: Robert Feliz MD [...] : 6Result Comment: [06/19/2016] GAYLEBEND 7Result Comment: [06/19/2016] abby 8Result Comment: [06/19/2016] [...] 1 Refills, Maintenance, 06/01/19 12:03:00 EST, Tablet, [facility] #08307, 151, cm, 05/23/19 11:27:00 EST, Height, 65.4, [...] 10/03/18 15:01:00 EDT, Route to Pharmacy Electronically, [id number], [facility], J47.9 Start Date: 10/03/18 Status: Ordered ProAir HFA 90 mcg/inh inhalation aerosol with adapter 2, puffs, Inhalation, 4 times a day, PRN, # 1 each, Refills 6, Tot. Refills 6, Maintenance, 05/17/19 14:49:00 EST, Route to Pharmacy Electronically, [id number], [facility] #[id number], 151, cm, 05/17/19 14:23:00 EST, Hei... Start [...]
--- OUTSIDE RECORDS SUMMARY | 2023-08-31 08:14 | XMS_ITS | Continuity of Care Document ---
Author Organization [facility] Address [address] [address]- Care Team Providers Care Circuit Clerk Name Role Phone Tray BROWN, Robert Anthony Primary Care Physician Encounter [facility] [place] Date(s): 04/20/19 - 04/27/19 [facility] [address] [address]- [facility] Attending Physician: Mor Diaz MD Admitting Physician: [...] Albert 2Location History: AGUSTINA 3Result Comment: [06/19/2016] HAILEBEND 4Result Comment: [06/19/2016] riverbend 5Early/Late Reason: Other [...] Daily, # 90 tablet, 1 Refills, Maintenance, 11/15/18 14:05:00 EDT, Tablet Start Date: 11/15/18 Status: Ordered MiraLax Powder 1 pack/packet = [...] 10/03/18 15:01:00 EDT, Route to Pharmacy Electronically, [id number], [facility], J47.9 Start Date: 10/03/18 Status: Ordered Spiriva Respimat 2.5 mcg/inh inhalation aerosol 2 puffs, Inhalation, Daily, # 1 each, 11 Refills, Maintenance, 01/26/17 16:54:40, Aerosol, 2 puffs Inhalation Daily,x30 days Start Date: 01/26/17 Stop Date: 01/21/18 Status: Ordered Problem List Condition Effective Dates [...] oldest [Reference Range]: 1 Height 151 cm (04/20/19 2:00 PM) Weight 64.7 kg (04/20/19 2:00 PM) Oxygen Saturation [94-100 %] 95 % (04/20/19 2:00 PM) Pulse Rate [55-90 bpm] 61 bpm (04/20/19 2:00 PM) Body Mass Index [18.5-24.99] 28.38 *H* (04/20/19 2:00 PM) Blood Pressure [90-138/55-84 mm Hg] 116/ 64mm Hg (04/20/19 2:00 PM) Blood pressure sites Arm, left (04/20/19 2:00 PM) Weight Obtained Via Standing scale (04/20/19 2:00 PM) Social History Social History Type Response Smoking Status Former smoker entered on: 09/06/14 Sex
--- OUTSIDE RECORDS SUMMARY | 2023-08-31 08:14 | XMS_ITS | Continuity of Care Document ---
Author Organization [facility] Zac lt Address [address] [place] [address]- Care Team Providers Care Welfare Manager Name Role Phone Robert Feliz MD Primary Care Physician [id number]29[facility]22 [facility] Adult [address] [place] [address]- Attending Physician: Robert Feliz MD Allergies, Adverse Reactions, Alerts Substance Reaction Severity Status codeine Active tetanus toxoid Active sulfa drugs Active Fish Active Immunizations Given and Recorded Vaccine Date Status Refusal Reason Influenza Virus Vaccine (oldterm) 1 02/03/22 Recor ded SARS-CoV-2 mRNA (omdouqj-xamp-bmgjn) vax 08/06/21 Recorded SARS-CoV-2 (COVID-19) mRNA BNT-162b2 [...] 06/20/12 Recorde d 1Result Comment: influenza at [facility] 2Location History: Agustina Albert 3Location History: AGUSTINA 4Result Comment: [06/19/2016] [place] 5Result Comment: [06/19/2016] riverbend 6Early/Late Reason: Other : 7Result Comment: [06/19/2016] [place] 8Result Comment: [06/19/2016] riverbend 9Result Comment: [06/19/2016] riverbend 10Result Comment: [06/19/2016] [place] Medications albuterol 0.083% inhalation solution 3 mL, Inhalation, Every 6 hours, USE ACAPELLA DEVICE AFTER EVERY TREATMENT., # 360 mL, 5 Refills, [id number] #[id number], 151, cm, 09/29/21 13:12:00 EDT, Height, 61.69, [...] 10/17/21 15:25:00 EDT, Route to Pharmacy Electronically, [id number], [facility] #75304, 151, cm, 09/29/21 13:12:00 EDT, Hei... Start Date: 10/17/21 Status: Ordered Sodium Chloride, Inhalation 0.9% inhalation solution See Instructions, USE 4 ML VIA NEBULIZER TWICE DAILY USE WITH 0.5% VIA INHALER SOLUTION TOGETHER INVIA NEBULIZER, # 300 mL, 0 Refills, Maintenance, 04/28/22 9:38:00 EST, [facility] #43560,25, USE 4 ML VIA NEBULIZER TWICE DAILY [...] chart review meeting GFR criteria 6Admission to [facility] for CHF 11/2020. Cardiac MRI: LVEF 44%; 12/16/20 echo at [facility]: LVEF=40-45% 8Per CT w/contrast 12/19/2021: Irregular partially calcified tissue along the distal left main pulmonary artery extending along the regular small caliber left lower lobe pulmonary artery branch probably reflecting chronic thrombus.. [id number]-Ecohgvout as lung mass. S/P R-CHOP x 6 cycles. Vital Signs Most recent to oldest [Reference Range]: 1 Height 150.0 cm (06/22/22 10:28 AM) Weight 62.7 kg (06/22/22 10:28 AM) Oxygen Saturation [94-100 %] 96 % (06/22/22 10:28 AM) Pulse Rate [55-90 bpm] 62 bpm (06/22/22 10:28 AM) Body Mass Index [18.5-24.99 kg/m2] 27.87 kg/m2 *H* (06/22/22 10:28 AM) Blood Pressure [90-138/55-84 mm Hg] 127/ 66mm Hg (06/22/22 10:28 AM) Mode of Delivery (Oxygen) Room air (06/22/22 10:28 AM) Blood pressure sites Arm, left (06/22/22 10:28 AM) Weight Obtained Via Standing scale (06/22/22 10:28 AM) Social History Social History Type Response Smoking Status Former smoker entered on: 09/06/14 Sex Patient Care team information Care Team Personnel Name: Francoise Black RN Position: [facility] RN Member Role: Primary Care Nurse Name: Chiqui Stoll RN Position: S RN Member Role: Primary Care Nurse Name: Robert Feliz MD Position: [facility] Primary Care Physician Member Role: PCP Address: Address: [address] [place] [address]- Care Team Related Persons Name: RAMIRO MARR Address: home [address] [place] [id number]
--- OUTSIDE RECORDS SUMMARY | 2023-08-31 08:14 | XMS_ITS | Continuity of Care Document ---
Author Organization [facility] Address [address] [place] [address]- Care Team Providers Care Armed Security Guard Name Role Phone Tray BROWN, Robert Anthony Primary Care Physician Encounter [facility] Date(s): 12/18/21 - 12/25/21 [facility] [address] [place] [address]- Attending Physician: Emilie Reynolds NP Admitting Physician: Emilie Reynolds NP Referring Physician: Emilie Reynolds NP Allergies, Adverse Reactions, Alerts Substance Reaction Severity Status codeine Active tetanus toxoid Active sulfa drugs Active Immunizations Given and Recorded Vaccine Date Status Refusal Reason SARS-CoV-2 mRNA (eecjflj-qjwu-yxeqs) vax 08/06/21 Recorded SARS-CoV-2 (COVID-19) mRNA BNT-162b2 [...] vaccine 8 08/31/12 Recorded Zoster Vaccine Live 5/8/13 Recorded pneumococcal 23-valent vaccine 9 06/20/12 Recorded [...] EVERY TREATMENT., # 360 mL, 5 Refills, [facility] #43614, 151, cm, 09/29/21 13:12:00 EDT, Height, 61.69, kg, 09/29/21 13:11:00 EDT, Dry Weight Start Date: 11/13/21 Status: Ordered bisoprolol 5 mg oral tablet 0.5 tablet = 2.5 mg, By Mouth, Daily, # 45 tablet, 3 Refills, Maintenance, 06/12/21 13:52:00 EST, Tablet, [facility], 151, cm, 06/11/21 13:48:00 EST, Height Start Date: 06/12/21 Stop Date: 06/07/22 Status: Ordered cefdinir 300 mg oral capsule 1 capsule = 300 mg, By Mouth, Every 12 hours, for 7 days, # 14 capsule, 0 Refills, Acute 01/01/22 11:10:00 EDT, 12/25/21 11:10:00 EDT, Capsule, [facility] #[id number], Partial fill upon patient request if the prescription is for a schedule II opi... Start Date: 12/25/21 Stop Date: 01/01/22 Status: Ordered clopidogrel 75 mg oral tablet 1, tablet, By Mouth, Daily, # 90 Unknown, Refills 3, Route to Pharmacy Electronically, [facility], 151, cm, 09/29/21 13:12:00 EDT, Height, 61.69, kg, 09/29/21 13:11:00 EDT, Dry Weight Start Date: 11/05/21 Status: Ordered Hyper-Don 7% inhalation solution 4 mL = 0.28 Gm, Neb, 2 times a day, take with 0.5ml = 2.5 mg albuterol (add hypersal 4ml to 0.5ml albuterol) twice a day J47.0, # 720 mL, 1 Refills, Maintenance, 07/28/22 9:58:00 EDT, [facility] #[id number], J47.0 bronchiectasis, 4 mL Neb 2 times... Start Date: 07/28/22 Status: Ordered Lasix 40 mg oral tablet 1, tablet, By Mouth, Daily, # 90 Unknown, Refills 3, Route to Pharmacy Electronically, [facility], 151, cm, 09/29/21 13:12:00 EDT, Height, 61.69, kg, 09/29/21 13:11:00 EDT, Dry Weight Start Date: 11/05/21 Status: Ordered losartan 25 mg oral tablet 12.5 mg, 0.5, tablet, By Mouth, Daily, Take 0.5 tablet (12.5mg) daily, # 45 tablet, Refills 3, Tot.Refills 3, Maintenance, 06/12/21 13:52:00 EST, Route to Pharmacy Electronically, [facility], 151, cm, 06/11/21 13:48:00 EST, Height [...] 10/17/21 15:25:00 EDT, Route to Pharmacy Electronically, [id number], [facility] #[id number], 151, cm, 09/29/21 13:12:00 EDT, Hei... Start Date: 10/17/21 Status: Ordered Sodium Chloride, Inhalation 0.9% inhalation solution 4 mL = 0.036 Gm, Neb, 2 times a day, use with 0.5% albuterol solution together in nebulizer, # 240 mL, 6 Refills, Maintenance, 06/12/21 19:39:00 EST, [facility] #11125, Partial fill upon patient request if the [...] treatment. 2Per cardiology presumed secondary to chemotherapy. 35/12/22 carotid duplex: TATI 1-49% stenosis; LICA 1-49% stenosis 4Admission to [facility] for CHF 11/2020. Cardiac MRI: LVEF 44%; 12/16/20 echo at [facility]: LVEF=40-45% [id number]-Ydfodonbw as lung mass. S/P R-CHOP x 6 cycles. Vital Signs Most recent to oldest [Reference Range]: 1 Height 151 cm (12/18/21 8:18 AM) Weight 61.24 kg (12/18/21 8:18 AM) Oxygen Saturation [94-100 %] 98 % (12/18/21 8:18 AM) Pulse Rate [55-90 bpm] 63 bpm (12/18/21 8:18 AM) Body Mass Index [18.5-24.99] 26.86 *H* (12/18/21 8:18 AM) Blood Pressure [90-138/55-84 mm Hg] 98/5 8mm Hg (12/18/21 8:18 AM) Mode of Delivery (Oxygen) Room air (12/18/21 8:18 AM) Blood pressure sites Arm, left (12/18/21 8:18 AM) Weight Obtained Via Patient/family state d (12/18/21 8:18 AM) Social History Social History Type Response Smoking Status Former smoker entered on: 09/06/14 Sex Care Team Personnel Name: Robert Feliz MD Address: [address] [place] [address]
--- OUTSIDE RECORDS SUMMARY | 2023-08-31 08:14 | XMS_ITS | Continuity of Care Document ---
Author Organization [facility] Zac lt Address [address] [place] [address]- Care Team Providers Care Air Saw Operator Name Role Phone Tray BROWN, Robert Anthony Primary Care Physician Encounter [facility] Date(s): 01/05/20 - 02/04/20 [facility] [address] [place] [address]- [facility] Allergies, Adverse Reactions, Alerts Substance Reaction [...] 0 Refills, Soft Stop, 12/27/19 12:56:00 EDT, [facility] #[id number], 151, cm, 11/22/19 11:48:00 EDT,Height, 65.4, kg, 05/02/18 11:04:00 EST, Dry Weight Start Date: 12/27/19 Status: Ordered meloxicam 7.5 mg oral tablet 1 tablet = 7.5 mg, By Mouth, Daily, # 90 tablet, 1 Refills, Maintenance, 01/05/20 8:12:00 EDT, Tablet, [facility] #35256, 151, cm, 11/22/19 11:48:00 EDT, Height, 65.4, [...] 05/17/19 14:49:00 EST, Route to Pharmacy Electronically, [id number], [facility] #[id number], 151, cm, 05/17/19 14:23:00 EST, Hei... Start [...]
--- OUTSIDE RECORDS SUMMARY | 2023-08-31 08:14 | XMS_ITS | Continuity of Care Document ---
Author Organization [facility] Zac lt Address [address] [place] [address]- Care Team Providers Care Vessel Engineer Name Role Phone Tray BROWN, Robert Anthony Primary Care Physician [phone] Encounter [facility] [place] Date(s): 12/19/20 - 01/18/21 [facility] Adult [address] [place] [address]- Allergies, Adverse Reactions, Alerts Substance Reaction Severity [...] 3 Refills, Maintenance, 06/27/20 15:48:00 EST, Solution, [facility] #68899, 151, cm, 02/05/20 7:35:00 EDT, Height Start Date: 06/27/20 Status: Ordered amoxicillin 500 mg oral capsule 4 capsule = 2,000 mg, By Mouth, Once, take 4 capsules prior to dental procedure, # 4 capsule, 0 Refills, Soft Stop, 08/15/20 16:35:00 EDT, [facility] #34263, 151, cm, 02/05/20 7:35:00 EDT, Height Start Date: 08/15/20 Status: Ordered Hyper-Don 7% inhalation solution 4 mL = 0.28 Gm, Neb, 2 times a day, take with 0.5ml = 2.5 mg albuterol (add hypersal 4ml to 0.5ml albuterol) twice a day, # 240 mL, 11 Refills, Maintenance, 08/07/20 9:58:00 EDT, [facility]#49822, J47.0 bronchiectasis, 4 mL Neb 2 times a da... Start Date: 08/07/20 Stop Date: 08/02/21 Status: Ordered Lasix 40 mg oral tablet 40 mg, 1, tablet, By Mouth, Daily, prescribed by [facility] doctor 12/18/20, # 30 tablet, Refills 2, Tot. Refills 2, Maintenance, 01/10/21 13:42:00 EDT, Route to Pharmacy Electronically, [facility] #90696, Partial fill upon patient request if th... Start Date: 01/10/21 Status: Ordered meloxicam 7.5 mg oral tablet 1 tablet, By Mouth, Daily, # 90 tablet, 0 Refills, [facility] #88768, 151, cm, 12/27/20 8:19:00 EDT, Height Start [...] 01/10/21 13:45:00 EDT, Route to Pharmacy Electronically, [facility] #[id number], Partial fill upon patientrequest if the prescription is for a schedule II op... Start Date: 01/10/21 Status: Ordered ProAir HFA 90 mcg/inh inhalation aerosol with adapter 2, puffs, Inhalation, 4 times a day, PRN, # 1 each, Refills 6, Tot. Refills 6, Maintenance, 08/26/20 14:10:00 EDT, Route to Pharmacy Electronically, [id number], [facility] #[id number], 151, cm, 08/26/20 13:26:00 EDT, Height Start Date: 08/26/20 Status: Ordered Trelegy Ellipta 200 mcg-62.5 mcg-25 mcg/inh inhalation powder 1 puffs, Inhalation, Daily, at the same time every day, # 1 each, 6 Refills, Maintenance, 12/06/20 9:31:00 EDT, Powder, [facility] #60162, Partial fill upon patient request if the [...]
--- OUTSIDE RECORDS SUMMARY | 2023-08-31 08:14 | XMS_ITS | Continuity of Care Document ---
Author Organization [facility] Zac lt Address [address] [place] [address]- Care Team Providers Care Machine Shop Specialist Name Role Phone Tray BROWN, Robert Anthony Primary Care Physician [place] [facility] [place](s): 07/26/23 - 08/25/23 [facility] Adult [address] [place] [address]- Allergies, Adverse Reactions, Alerts Substance Reaction Severity [...] virus vaccine, inactivated 6 02/09/12 Re corded [id number] 12y+ bivalent booster vax 08/15/22 Recorded Influenza Virus Vaccine (oldterm) 7 02/03/22 Recor ded SARS-CoV-2 mRNA (lqsuehh-bugf-ujceg) vax 08/06/21 Recorded SARS-CoV-2 (COVID-19) mRNA BNT-162b2 [...] [06/19/2016] [place] 7Result Comment: influenza at [facility] 8Result Comment: [06/19/2016] riverbend 9Result Comment: [06/19/2016] riverbend 10Result Comment: [06/19/2016] [place] Medications albuterol 0.083% inhalation solution 3 mL, Inhalation, Every 6 hours, USE ACAPELLA DEVICE AFTER EVERY TREATMENT. J44.9, # 360 mL, 5 Refills, 01/18/23 8:59:00 EDT, [facility] #44255, J44.9, 150, cm, 01/11/23 10:59:00 EDT, Height, 61, kg, 04/17/22 11:31:00 EST, Dry Weight Start Date: 01/18/23 Status: Ordered bisoprolol 5 mg oral tablet See Instructions, TAKE 1/2 TABLET DAILY, # 45 Unknown, 0 Refills, Maintenance, 02/22/23 7:49:00 EDT, [facility], 150, cm, 01/11/23 10:59:00 EDT, Height, 61, kg, 04/17/22 11:31:00 EST, Dry Weight Start Date: 02/22/23 Status: Ordered clopidogrel 75 mg oral tablet See Instructions, TAKE 1 TABLET DAILY, # 90 Unknown, Refills 0, Maintenance, 02/22/23 7:49:00 EDT, Instructions Replace Required Details, Route to Pharmacy Electronically, [facility], 150, cm, 01/11/23 10:59:00 EDT, Height, [...] Refills, Soft Stop, 07/19/23 9:46:00 EDT, Patch, [facility]/pharmacy #[id number], Partial fill upon patient request if [...] 10/17/21 15:25:00 EDT, Route to Pharmacy Electronically, [id number], [facility] #15020, 151, cm, 09/29/21 13:12:00 EDT, Hei... Start [...] mL, 5 Refills, Maintenance, 02/11/23 9:46:00 EDT, [facility] #78576, USE 4 ML VIANEBULIZER TWICE DAILY USE WITH 0.5% TOGETHER IN VIA... Start Date: 02/11/23 Status: Ordered traMADol 50 mg oral tablet 1 tablet = 50 mg, By Mouth, Every 12 hours, PRN for pain, # 30 tablet, 5 Refills, Acute 01/06/24 10:48:00 EDT, 07/06/23 10:47:00 EDT, Tablet, [facility]/pharmacy #0373, Partial fill upon patient request if [...] chart review meeting GFR criteria 6Admission to [facility] for [place] 11/2020. Cardiac MRI: LVEF 44%; 12/16/20 echo at [facility]: LVEF=40-45% 8Per CT w/contrast 12/19/2021: Irregular partially calcified tissue along the distal left main pulmonary artery extending along the regular small caliber left lower lobe pulmonary artery branch probably reflecting chronic thrombus.. [id number]-Oqknkcxyu as lung mass. S/P R-CHOP x 6 cycles. Social History Social History Type Response Smoking Status Former smoker entered on: 09/06/14 Sex Patient Care team information Care Team Personnel Name: Manuel Mayes MD Position: [facility] Physician - Pulm/Critical Care Member Role: Marketing Assistant Address: Address: [address] [place] [address] [address] [facility] [place] [address]- Name: Kenneth Chowdary MD Position: [facility] Cardiology MD Member Role: Telephone Collector Address: Address: [address] [place] [address] [address] [place] [address]- Name: Robert Feliz MD Position: [facility] Physician - Primary Care Member Role: PCP Address: Address: [address] [place] [id number]- [place] Name: Georgette Silva Position: [facility] [place] Laborer Pole Crew Member Role: Line Tester Name: Epi Turner Member Role: Neurologist Name: Mariposa BROWN, Zi Méndez Position: Reference Physician Member Role: Tow Truck Driver Address: Address: [address] [place] [address] [address] [facility] [place] [address]- [place] Care Team Related Persons Name: RAMIRO MARR Address: [address] [address]
--- OUTSIDE RECORDS SUMMARY | 2023-08-31 08:14 | XMS_ITS | Continuity of Care Document ---
Author Organization [facility] Zac lt Address [address] [place] [address]- Care Team Providers Care Manager Of Environmental Services Name Role Phone Robert Feliz MD Primary Care Physician [phone] [place] [facility] [place] 11[place]26/20 [facility] Adult [address] [place] [address]- Attending Physician: Robert Feliz MD Allergies, Adverse [...] vaccine 9 06/20/12 Recorded 1Location History: [facility] 2Location History: [facility] 3Result Comment: [06/19/2016] JANET 4Result Comment: [06/19/2016] [facility] 5Early/Late Reason: Other : 6Result Comment: [06/19/2016] [facility] 7Result Comment: [06/19/2016] [facility] 8Result Comment: [06/19/2016] [facility] 9Result Comment: [06/19/2016] [facility] Medications albuterol 0.083% inhalation solution 3 mL = 2.5 mg, Inhalation, Every 6 hours, use Acapella device after every treatment, # 120 each, 3 Refills, Maintenance, 06/27/20 15:48:00 EST, Solution, [facility] #[id number], 151, cm, 02/05/20 7:35:00 EDT, Height Start Date: 06/27/20 Status: Ordered amoxicillin 500 mg oral capsule 4 capsule = 2,000 mg, By Mouth, Once, take 4 capsules prior to dental procedure, # 4 capsule, 0 Refills, Soft Stop, 08/15/20 16:35:00 EDT, [facility] #[id number], 151, cm, 02/05/20 7:35:00 EDT, Height Start Date: 08/15/20 Status: Ordered aspirin 81 mg oral tablet, chewable 81 mg, 1, tablet, By Mouth, Daily, # 90 tablet, Refills 3, Tot. Refills 3, Maintenance, 02/05/20 7:58:00 EDT, Route to Pharmacy Electronically, [facility] #[id number], 151, cm, 02/05/20 7:35:00 EDT, Height, 65.4, kg, 05/02/18 11:04:00 EST, Dry We... Start Date: 02/05/20 Status: Ordered Hyper-Don 7% inhalation solution 4 mL = 0.28 Gm, Neb, 2 times a day, take with 0.5ml = 2.5 mg albuterol (add hypersal 4ml to 0.5ml albuterol) twice a day, # 240 mL, 11 Refills, Maintenance, 08/07/20 9:58:00 EDT, [facility]#05603, J47.0 bronchiectasis, 4 mL Neb 2 times a da... Start Date: 08/07/20 Stop Date: 08/02/21 Status: Ordered Nebulizer/Compressor See Instructions, # 1 each, Refills 11, Tot. Refills 11, Maintenance, E0570 Nebulizer A7003 Neb Disp Set A7014 Neb non-Disp Filter A7005 Neb Non-Disp set A7015 Aerosol Mask A7013 Neb Disp Filter length of need lifetime 99 months DX COPD J44.9, ... Start Date: 06/27/20 Status: Ordered ProAir HFA 90 mcg/inh inhalation aerosol with adapter 2, puffs, Inhalation, 4 times a day, PRN, # 1 each, Refills 6, Tot. Refills 6, Maintenance, 08/26/20 14:10:00 EDT, Route to Pharmacy Electronically, [id number], [facility] #[id number], 151, cm, 08/26/20 13:26:00 EDT, Height Start [...] oldest [Reference Range]: 1 Height 151 cm (11/19/20 2:11 PM) Social History Social History Type Response Smoking Status Former smoker entered on: 09/06/14 Sex
--- OUTSIDE RECORDS SUMMARY | 2023-08-31 08:14 | XMS_ITS | Continuity of Care Document ---
Author Organization [facility] Riky Zac lt Address [address] [place] [address]- Care Team Providers Care Precision Mechanical Instrument Maker Name Role Phone Tray BROWN, Robert Anthony Primary Care Physician [place] [facility] [place]23 - 07/30/23 [facility] Adult [address] [place] [address]- Allergies, Adverse Reactions, Alerts Substance Reaction Severity [...] virus vaccine, inactivated 6 02/09/12 Re corded [id number] 12y+ bivalent booster vax 08/15/22 Recorded Influenza Virus Vaccine (oldterm) 7 02/03/22 Recor ded SARS-CoV-2 mRNA (rlseasv-xfnk-ddrok) vax 08/06/21 Recorded SARS-CoV-2 (COVID-19) mRNA BNT-162b2 [...] Comment: [06/19/2016] [facility] 7Result Comment: influenza at [facility] 8Result Comment: [06/19/2016] [facility] 9Result Comment: [06/19/2016] [facility] 10Result Comment: [06/19/2016] [facility] Medications albuterol 0.083% inhalation solution 3 mL, Inhalation, Every 6 hours, USE ACAPELLA DEVICE AFTER EVERY TREATMENT. J44.9, # 360 mL, 5 Refills, 01/18/23 8:59:00 EDT, [facility] #[id number], J44.9, 150, cm, 01/11/23 10:59:00 EDT, Height, 61, kg, 04/17/22 11:31:00 EST, Dry Weight Start Date: 01/18/23 Status: Ordered bisoprolol 5 mg oral tablet See Instructions, TAKE 1/2 TABLET DAILY, # 45 Unknown, 0 Refills, Maintenance, 02/22/23 7:49:00 EDT, [facility], 150, cm, 01/11/23 10:59:00 EDT, Height, 61, kg, 04/17/22 11:31:00 EST, Dry Weight Start Date: 02/22/23 Status: Ordered clopidogrel 75 mg oral tablet See Instructions, TAKE 1 TABLET DAILY, # 90 Unknown, Refills 0, Maintenance, 02/22/23 7:49:00 EDT, Instructions Replace Required Details, Route to Pharmacy Electronically, [facility], 150, cm, 01/11/23 10:59:00 EDT, Height, [...] Refills, Soft Stop, 07/19/23 9:46:00 EDT, Patch, [facility]/pharmacy #[id number], Partial fill upon patient [...] 10/17/21 15:25:00 EDT, Route to Pharmacy Electronically, [id number], [facility] #[id number], 151, cm, 09/29/21 13:12:00 EDT, Hei... Start [...] mL, 5 Refills, Maintenance, 02/11/23 9:46:00 EDT, [facility] #[id number], USE 4 ML VIANEBULIZER TWICE DAILY USE WITH 0.5% TOGETHER IN VIA... Start Date: 02/11/23 Status: Ordered traMADol 50 mg oral tablet 1 tablet = 50 mg, By Mouth, Every 12 hours, PRN for pain, # 30 tablet, 5 Refills, Acute 01/06/24 10:48:00 EDT, 07/06/23 10:47:00 EDT, Tablet, [facility]/pharmacy #[id number], Partial fill upon patient [...] chart review meeting GFR criteria 6[place] [facility] [place]. Cardiac MRI: LVEF 44%; 12/16/20 echo at [facility] [place]: LVEF=40-45% 8Per CT w/contrast 12/19/2021: Irregular partially calcified tissue along the distal left main pulmonary artery extending along the regular small caliber left lower lobe pulmonary artery branch probably reflecting chronic thrombus.. 50687-Jouowegfr as lung mass. S/P R-CHOP x 6 cycles. Social History Social History Type Response Smoking Status Former smoker entered on: 09/06/14 Sex Patient Care team information Care Team Personnel Name: Manuel Mayes MD Position: [facility] Physician - Pulm/Critical Care Member Role: Fish Net Stringer Address: Address: [address] [place] [address] [address] [facility] [place] [address]- Name: Kenneth Chowdary MD Position: [facility] Cardiology MD Member Role: Glass Block Installer Address: Address: [address] [place] [address] [address] [place] [address]- Name: Robert Feliz MD Position: [facility] Physician - Primary Care Member Role: PCP Address: Address: [address] [place] [address]- [place] Name: Georgette Silva Position: [facility] [place] Case Advocate Member Role: Career And Transition Teacher Name: Epi Turner Member Role: Neurologist Name: Mariposa BROWN, Zi Méndez Position: Reference Physician Member Role: Commercial Loan Administrator Address: Address: [address] [place] [address] [address] [facility] [place] [address]- [place] Care Team Related Persons Name: RAMIRO MARR Address: [address] [address]
--- OUTSIDE RECORDS SUMMARY | 2023-08-31 08:14 | XMS_ITS | Continuity of Care Document ---
Author Organization [facility] Zac lt Address [address] [place] [address]- Care Team Providers Care Cloth Stock Sorter Name Role Phone Tray BROWN, Robert Anthony Primary Care Physician [phone] Encounter [facility] [place] Date(s): 12/01/22 - 12/31/22 [facility] Adult [address] [place] [address]- Allergies, Adverse Reactions, Alerts Substance Reaction Severity Status codeine Active tetanus toxoid Active sulfa drugs Active Fish Active Immunizations Given and Recorded Vaccine Date Status Refusal Reason [id number] 12y+ bivalent booster vax 08/15/22 Recorded Influenza Virus Vaccine (oldterm) 1 02/03/22 Recor ded SARS-CoV-2 mRNA (dvhmrpe-inrz-xtrfy) vax 08/06/21 Recorded SARS-CoV-2 (COVID-19) mRNA BNT-162b2 [...] 06/20/12 Sigifredo anderson 1Result Comment: influenza at [facility] 2Location History: [facility] 3Location History: [facility] 4Result Comment: [06/19/2016] [facility] 5Result Comment: [06/19/2016] [facility] 6Early/Late Reason: Other : 7Result Comment: [06/19/2016] [facility] 8Result Comment: [06/19/2016] [facility] 9Result Comment: [06/19/2016] [facility] 10Result Comment: [06/19/2016] [facility] Medications albuterol 0.083% inhalation solution 3 mL, Inhalation, Every 6 hours, USE ACAPELLA DEVICE AFTER EVERY TREATMENT., # 360 mL, 5 Refills, [facility] #[id number], 151, cm, 09/29/21 13:12:00 EDT, Height, 61.69, kg, 09/29/21 13:11:00 EDT, Dry Weight Start Date: 11/13/21 Status: Ordered bisoprolol 5 mg oral tablet See Instructions, TAKE 1/2 TABLET DAILY, # 45 tablet, 1 Refills, Maintenance, 09/04/22 16:11:00 EDT, [facility], 150, cm, 08/28/22 9:37:00 EDT, Height, 61, kg, 04/17/22 11:31:00 EST, Dry Weight Start Date: 09/04/22 Status: Ordered clopidogrel 75 mg oral tablet 1, tablet, By Mouth, Daily, # 90 Unknown, Refills 0, Tot. Refills 0, Maintenance, 10/19/22 15:23:00EDT, Route to Pharmacy Electronically, [facility], 150, cm, 08/28/22 9:37:00 EDT, Height, 61, kg, 04/17/22 11:31:00 EST, Dry Weight Start Date: 10/19/22 Status: Ordered Lasix 40 mg oral tablet 1, tablet, By Mouth, Daily, # 90 Unknown, Refills 3, Route to Pharmacy Electronically, [facility], 151, cm, 09/29/21 13:12:00 EDT, Height, [...] 12/22/22 10:35:00 EDT, Route to Pharmacy Electronically, [email or web address] #[id number], Partial fill upon patient req... Start Date: 12/22/22 Status: Ordered ProAir HFA 90 mcg/inh inhalation aerosol with adapter 2, puffs, Inhalation, 4 times a day, PRN, # 1 each, Refills 5, Tot. Refills 5, Maintenance, 10/17/21 15:25:00 EDT, Route to Pharmacy Electronically, [id number], [facility] #[id number], 151, cm, 09/29/21 13:12:00 EDT, Hei... Start [...] mL, 0 Refills, Maintenance, 11/27/22 15:51:00 EDT, [facility] #[id number], 12, USE 4 ML VIA NEBULIZER TWICE DAILY USE WITH 0.... Start Date: 11/27/22 Status: Ordered traMADol 50 mg oral tablet 1 tablet = 50 mg, By Mouth, Every 12 hours, PRN for pain, # 30 tablet, 2 Refills, Acute 01/21/23 12:24:00 EDT, 11/20/22 12:24:00 EDT, Tablet, [facility] #[id number], Partial fill upon patient request if the prescription is for a schedule II opioi... Start Date: 11/20/22 Stop Date: 01/21/23 Status: Ordered Trelegy Ellipta 200 mcg-62.5 mcg-25 mcg/inh inhalation powder 1 puffs, Inhalation, Daily, at the same time every day, j44.9, # 1 each, 6 Refills, Maintenance, 10/14/22 11:12:00 EDT, Powder, [facility] #[id number], Partial fill upon patient request if the [...] chart review meeting GFR criteria 6Admission to [facility] for [place] 11/2020. Cardiac MRI: LVEF 44%; 12/16/20 echo at [facility]: LVEF=40-45% 8Per CT w/contrast 12/19/2021: Irregular partially calcified tissue along the distal left main pulmonary artery extending along the regular small caliber left lower lobe pulmonary artery branch probably reflecting chronic thrombus.. [id number]-Rucpjbxcm as lung mass. S/P R-CHOP x 6 cycles. Social History Social History Type Response Smoking Status Former smoker entered on: 09/06/14 Sex Patient Care team information Care Team Personnel Name: Francoise Black RN Position: S RN Member Role: Primary Care Nurse Name: Chiuqi Stoll RN Position: S RN Member Role: Primary Care Nurse Name: Robert Feliz MD Position: [facility] Physician - Primary Care Member Role: PCP Address: Address: [address] [place] [address]- Care Team Related Persons Name: RAMIRO MARR Address: home [address] [place] [id number]
--- OUTSIDE RECORDS SUMMARY | 2023-08-31 08:14 | XMS_ITS | Continuity of Care Document ---
Author Organization [facility] Riky Zac lt Address [address] [place] [address]- Care Team Providers Care Compliance Technician Name Role Phone Tray BROWN, Robert Anthony Primary Care Physician [phone] Encounter [facility] [place] Date(s): 06/11/23 - 07/11/23 [facility] Adult [address] [place] [address]- Allergies, Adverse Reactions, Alerts Substance Reaction Severity [...] virus vaccine, inactivated 6 02/09/12 Re corded [id number] 12y+ bivalent booster vax 08/15/22 Recorded Influenza Virus Vaccine (oldterm) 7 02/03/22 Recor ded SARS-CoV-2 mRNA (rvvprbz-yxsh-trdve) vax 08/06/21 Recorded SARS-CoV-2 (COVID-19) mRNA BNT-162b2 [...] Comment: [06/19/2016] [facility] 7Result Comment: influenza at [facility] 8Result Comment: [06/19/2016] [facility] 9Result Comment: [06/19/2016] [facility] 10Result Comment: [06/19/2016] [facility] Medications albuterol 0.083% inhalation solution 3 mL, Inhalation, Every 6 hours, USE ACAPELLA DEVICE AFTER EVERY TREATMENT. J44.9, # 360 mL, 5 Refills, 01/18/23 8:59:00 EDT, [facility] #30462, J44.9, 150, cm, 01/11/23 10:59:00 EDT, Height, 61, kg, 04/17/22 11:31:00 EST, Dry Weight Start Date: 01/18/23 Status: Ordered bisoprolol 5 mg oral tablet See Instructions, TAKE 1/2 TABLET DAILY, # 45 Unknown, 0 Refills, Maintenance, 02/22/23 7:49:00 EDT, [facility], 150, cm, 01/11/23 10:59:00 EDT, Height, 61, kg, 04/17/22 11:31:00 EST, Dry Weight Start Date: 02/22/23 Status: Ordered clopidogrel 75 mg oral tablet See Instructions, TAKE 1 TABLET DAILY, # 90 Unknown, Refills 0, Maintenance, 02/22/23 7:49:00 EDT, Instructions Replace Required Details, Route to Pharmacy Electronically, [email or web address], 150, cm, 01/11/23 10:59:00 EDT, Height, 61, [...] 07/22/23 14:14:00 EDT, 06/23/23 14:14:00 EST, Tablet, [facility]/pharmacy #[id number], Partial fillupon patient request if the [...] 10/17/21 15:25:00 EDT, Route to Pharmacy Electronically, [id number], [facility] #[id number], 151, cm, 09/29/21 13:12:00 EDT, Hei... Start [...] mL, 5 Refills, Maintenance, 02/11/23 9:46:00 EDT, [facility] #[id number], USE 4 ML VIANEBULIZER TWICE DAILY USE WITH 0.5% TOGETHER IN VIA... Start Date: 02/11/23 Status: Ordered traMADol 50 mg oral tablet 1 tablet = 50 mg, By Mouth, Every 12 hours, PRN for pain, # 30 tablet, 5 Refills, Acute 01/06/24 10:48:00 EDT, 07/06/23 10:47:00 EDT, Tablet, [facility]/pharmacy #[id number], Partial fill upon patient [...] chart review meeting GFR criteria 6[place] [facility] [place]. Cardiac MRI: LVEF 44%; 12/16/20 [place] [facility]: LVEF=40-45% 8Per CT w/contrast 12/19/2021: Irregular partially calcified tissue along the distal left main pulmonary artery extending along the regular small caliber left lower lobe pulmonary artery branch probably reflecting chronic thrombus.. 71334-Duivcznun as lung mass. S/P R-CHOP x 6 cycles. Social History Social History Type Response Smoking Status Former smoker entered on: 09/06/14 Sex Patient Care team information Care Team Personnel Name: Manuel Mayes MD Position: [facility] Physician - Pulm/Critical Care Member Role: Car Sales Representative Address: Address: [address] [place] [address] [address] [facility] [place] [address]- Name: Kenneth Chowdary MD Position: [facility] Cardiology MD Member Role: Artist Agent Address: Address: [address] [place] [address] [address] [facility] [place] [address]- Name: Robert Feliz MD Position: [facility] Physician - Primary Care Member Role: PCP Address: Address: [address] [place] [address]- [place] Name: Georgette Silva Position: [facility] [place] Ice Maker Member Role: Otm Consultant Name: Epi Turner Member Role: Neurologist Name: Zi Monge MD Position: Reference Physician Member Role: Display Trimmer Address: Address: [address] [place] [address] [address] [facility] [place] [address]- [place] Care Team Related Persons Name: PARENTRAMIRO Address: home [address] [place] [id number]
--- OUTSIDE RECORDS SUMMARY | 2023-08-31 08:14 | XMS_ITS | Continuity of Care Document ---
Author Organization [facility] Address [address] [place] [address]- Care Team Providers Care Power Electronics Engineer Name Role Phone Tray BROWN, Robert Anthony Primary Care Physician [place] [facility] [place] 05/10/22 [facility] [address] [place] [id number] Allergies, Adverse Reactions, Alerts Substance Reaction Severity Status codeine Active tetanus toxoid Active sulfa drugs Active Immunizations Given and Recorded Vaccine Date Status Refusal Reason Influenza Virus Vaccine (oldterm) 1 02/03/22 Recor ded SARS-CoV-2 mRNA (fuhpudf-tfso-gxhah) vax 08/06/21 Recorded SARS-CoV-2 (COVID-19) mRNA BNT-162b2 [...] 06/20/12 Recorde d 1Result Comment: influenza at [facility] 2Location History: [facility] 3Location History: [facility] 4Result Comment: [06/19/2016] [facility] 5Result Comment: [06/19/2016] [facility] 6Early/Late Reason: Other : 7Result Comment: [06/19/2016] [facility] 8Result Comment: [06/19/2016] [facility] 9Result Comment: [06/19/2016] [facility] 10Result Comment: [06/19/2016] [facility] Medications albuterol 0.083% inhalation solution 3 mL, Inhalation, Every 6 hours, USE ACAPELLA DEVICE AFTER EVERY TREATMENT., # 360 mL, 5 Refills, [facility] #[id number], 151, cm, 09/29/21 13:12:00 EDT, Height, 61.69, [...] Dry Weight Start Date: 11/05/21 Status: Ordered Lasix 40 mg oral tablet [...] Dry Weight Start Date: 04/28/22 Status: Ordered Nebulizer/Compressor See Instructions, # 1 [...] 10/17/21 15:25:00 EDT, Route to Pharmacy Electronically, [id number], [facility] #[id number], 151, cm, 09/29/21 13:12:00 EDT, Hei... Start Date: 10/17/21 Status: Ordered Sodium Chloride, Inhalation 0.9% inhalation solution See Instructions, USE 4 ML VIA NEBULIZER TWICE DAILY USE WITH 0.5% VIA INHALER SOLUTION TOGETHER INVIA NEBULIZER, # 300 mL, 0 Refills, Maintenance, 04/28/22 9:38:00 EST, [facility] #[id number],25, USE 4 ML VIA NEBULIZER TWICE DAILY [...] chart review meeting GFR criteria 5Admission to [facility] for [place] 11/2020. Cardiac MRI: LVEF 44%; 12/16/20 echo at [facility]: LVEF=40-45% [id number]-Lyscqcpow as lung mass. S/P R-CHOP x 6 cycles. Social History Social History Type Response Smoking Status Former smoker entered on: 09/06/14 Sex Patient Care team information Care Team Personnel Name: Wayne SPARKS, Francoise Position: [facility] RN Member Role: Primary Care Nurse Name: Chiqui Stoll RN Position: S RN Member Role: Primary Care Nurse Name: Robert Feliz MD Position: [facility] Primary Care Physician Member Role: PCP Address: Address: [address] [place] [address]- Care Team Related Persons Name: RAMIRO MARR Address: home [address] [place] [id number]
--- OUTSIDE RECORDS SUMMARY | 2023-08-31 08:14 | XMS_ITS | Continuity of Care Document ---
Author Organization [facility] Riky Zac lt Address [address] [place] [address]- Care Team Providers Care Cancer Researcher Name Role Phone Robert Feliz MD Primary Care Physician [place] [facility] [place](s): 12/27/20 - 01/03/21 [facility] Adult [address] [place] [address]- Attending Physician: Robert Feliz MD Allergies, Adverse [...] 3 Refills, Maintenance, 06/27/20 15:48:00 EST, Solution, [facility] #31126, 151, cm, 02/05/20 7:35:00 EDT, Height Start Date: 06/27/20 Status: Ordered amoxicillin 500 mg oral capsule 4 capsule = 2,000 mg, By Mouth, Once, take 4 capsules prior to dental procedure, # 4 capsule, 0 Refills, Soft Stop, 08/15/20 16:35:00 EDT, [facility] #83092, 151, cm, 02/05/20 7:35:00 EDT, Height Start Date: 08/15/20 Status: Ordered aspirin 81 mg oral tablet, chewable 81 mg, 1, tablet, By Mouth, Daily, # 90 tablet, Refills 3, Tot. Refills 3, Maintenance, 02/05/20 7:58:00 EDT, Route to Pharmacy Electronically, [facility] #84776, 151, cm, 02/05/20 7:35:00 EDT, Height, 65.4, kg, 05/02/18 11:04:00 EST, Dry We... Start Date: 02/05/20 Status: Ordered Hyper-Don 7% inhalation solution 4 mL = 0.28 Gm, Neb, 2 times a day, take with 0.5ml = 2.5 mg albuterol (add hypersal 4ml to 0.5ml albuterol) twice a day, # 240 mL, 11 Refills, Maintenance, 08/07/20 9:58:00 EDT, [facility]#98252, J47.0 bronchiectasis, 4 mL Neb 2 times a da... Start Date: 08/07/20 Stop Date: 08/02/21 Status: Ordered Lasix 40 mg oral tablet 40 mg, 1, tablet, By Mouth, Daily, prescribed by [facility] doctor 12/18/20, # 30 tablet, Refills 0, Maintenance, 12/19/20 13:31:00 EDT, Partial fill upon patient request if the prescription is for a schedule II opioid drug. Start Date: 12/19/20 Status: Ordered meloxicam 7.5 mg oral tablet 1 tablet, By Mouth, Daily, # 90 tablet, 0 Refills, [facility] #06178, 151, cm, 12/27/20 8:19:00 EDT, Height Start [...] 1, tablet, By Mouth, Daily, Prescribed by [facility] doctory 12/18/20 stop asa after on plavix [...] 08/26/20 14:10:00 EDT, Route to Pharmacy Electronically, [id number], [facility] #[id number], 151, cm, 08/26/20 13:26:00 EDT, Height Start [...] 6 Refills, Maintenance, 12/06/20 9:31:00 EDT, Powder, [facility] #47215, Partial fill upon patient request if the [...] oldest [Reference Range]: 1 Height 151 cm (12/27/20 8:19 AM) Weight 61.0 kg (12/27/20 8:19 AM) Oxygen Saturation [94-100 %] 95 % (12/27/20 8:19 AM) Pulse Rate [55-90 bpm] 59 bpm (12/27/20 8:19 AM) Body Mass Index [18.5-24.99] 26.75 *H* (12/27/20 8:19 AM) Blood Pressure [90-138/55-84 mm Hg] 128/ 78mm Hg (12/27/20 8:19 AM) Temperature [96.8-100.4 DegF] 97.9 DegF (12/27/20 8:19 AM) Blood pressure sites Arm, right (12/27/20 8:19 AM) Temperature Route Oral (12/27/20 8:19 AM) Weight Obtained Via Standing scale (12/27/20 8:19 AM) Social History Social History Type Response Smoking Status Former smoker entered on: 09/06/14 Sex
--- OUTSIDE RECORDS SUMMARY | 2023-08-31 08:14 | XMS_ITS | Continuity of Care Document ---
Author Organization [facility] Address [address] [place] [address]- Care Team Providers Care Crop Puller Name Role Phone Tray BROWN, Robert Anthony Primary Care Physician [phone] Encounter [facility] [place] Date(s): 08/16/20 - 09/15/20 [facility] [address] [place] [address]- Allergies, Adverse Reactions, Alerts Substance Reaction Severity [...] Albert 2Location History: [facility] 3Result Comment: [06/19/2016] BRIIND 4Result Comment: [06/19/2016] riverbend 5Early/Late Reason: Other : 6Result Comment: [06/19/2016] RIVERBEND 7Result Comment: [06/19/2016] gaylebekaila 8Result Comment: [06/19/2016] gaylebend 9Result Comment: [06/19/2016] RIVERND Medications albuterol 0.083% inhalation solution 3 mL = 2.5 mg, Inhalation, Every 6 hours, use Acapella device after every treatment, # 120 each, 3 Refills, Maintenance, 06/27/20 15:48:00 EST, Solution, [facility] #[id number], 151, cm, 02/05/20 7:35:00 EDT, Height Start Date: 06/27/20 Status: Ordered amoxicillin 500 mg oral capsule 4 capsule = 2,000 mg, By Mouth, Once, take 4 capsules prior to dental procedure, # 4 capsule, 0 Refills, Soft Stop, 08/15/20 16:35:00 EDT, [facility] #[id number], 151, cm, 02/05/20 7:35:00 EDT, Height Start Date: 08/15/20 Status: Ordered aspirin 81 mg oral tablet, chewable 81 mg, 1, tablet, By Mouth, Daily, # 90 tablet, Refills 3, Tot. Refills 3, Maintenance, 02/05/20 7:58:00 EDT, Route to Pharmacy Electronically, [facility] #[id number], 151, cm, 02/05/20 7:35:00 EDT, Height, 65.4, kg, 05/02/18 11:04:00 EST, Dry We... Start Date: 02/05/20 Status: Ordered Hyper-Don 7% inhalation solution 4 mL = 0.28 Gm, Neb, 2 times a day, take with 0.5ml = 2.5 mg albuterol (add hypersal 4ml to 0.5ml albuterol) twice a day, # 240 mL, 11 Refills, Maintenance, 08/07/20 9:58:00 EDT, [facility]#[id number], J47.0 bronchiectasis, 4 mL Neb 2 times a da... Start Date: 08/07/20 Stop Date: 08/02/21 Status: Ordered Macrobid macrocrystals-monohydrate 100 mg oral capsule 1 capsule = 100 mg, By Mouth, 2 times a day, for 7 days, # 14 capsule, 0 Refills, Acute 09/17/20 17:06:00 EDT, 09/10/20 17:06:00 EDT, Capsule, [facility] #[id number], 151, cm, 09/09/20 9:14:00 EDT, Height Start Date: 09/10/20 Stop Date: 09/17/20 Status: Ordered meloxicam 7.5 mg oral tablet 1 tablet, By Mouth, Daily, # 90 tablet, 0 Refills, Maintenance, 07/01/20 12:15:00 EST, [facility] #51013, 151, cm, 02/05/20 7:35:00 EDT, Height Start [...] 08/26/20 14:10:00 EDT, Route to Pharmacy Electronically, [id number], [facility] #[id number], 151, cm, 08/26/20 13:26:00 EDT, Height Start [...]
--- OUTSIDE RECORDS SUMMARY | 2023-08-31 08:14 | XMS_ITS | Continuity of Care Document ---
Author Organization [facility] [place] Zac lt Address [address] [place] [address]- Care Team Providers Care Trace Clerk Name Role Phone Robert Feliz MD Primary Care Physician Encounter [facility] Date(s): 01/11/23 - 01/18/23 [facility] [place] Adult [address] [place] [address]- Attending Physician: Robert Feliz MD Allergies, Adverse Reactions, Alerts Substance Reaction Severity Status codeine Active tetanus toxoid Active sulfa drugs Active Fish Active Immunizations Given and Recorded Vaccine Date Status Refusal Reason [id number] 12y+ bivalent booster vax 08/15/22 Recorded Influenza Virus Vaccine (oldterm) 1 02/03/22 Recor ded SARS-CoV-2 mRNA (uildxho-jjwj-omfpe) vax 08/06/21 Recorded SARS-CoV-2 (COVID-19) mRNA BNT-162b2 [...] 360 mL, 5 Refills, 01/18/23 8:59:00 EDT, [facility] #[id number], J44.9, 150, cm, 01/11/23 10:59:00 EDT, Height, 61, kg, 04/17/22 11:31:00 EST, Dry Weight Start Date: 01/18/23 Status: Ordered bisoprolol 5 mg oral tablet See Instructions, TAKE 1/2 TABLET DAILY, # 45 tablet, 1 Refills, Maintenance, 09/04/22 16:11:00 EDT, [facility], 150, cm, 08/28/22 9:37:00 EDT, Height, 61, kg, 04/17/22 11:31:00 EST, Dry Weight Start Date: 09/04/22 Status: Ordered clopidogrel 75 mg oral tablet 1, tablet, By Mouth, Daily, # 90 Unknown, Refills 0, Tot. Refills 0, Maintenance, 10/19/22 15:23:00EDT, Route to Pharmacy Electronically, [facility], 150, cm, 08/28/22 9:37:00 EDT, Height, 61, kg, 04/17/22 11:31:00 EST, Dry Weight Start Date: 10/19/22 Status: Ordered Lasix 40 mg oral tablet 1, tablet, By Mouth, Daily, # 90 Unknown, Refills 3, Route to Pharmacy Electronically, [facility], 151, cm, 09/29/21 13:12:00 EDT, Height, 61.69, kg, 09/29/21 13:11:00 EDT, Dry Weight Start Date: 11/05/21 Status: Ordered losartan 25 mg oral tablet See Instructions, TAKE 1/2 TABLET DAILY, # 45 tablet, 1 Refills, Maintenance, 09/04/22 16:13:00 EDT, [facility], 150, cm, 08/28/22 9:37:00 EDT, [...] 12/22/22 10:35:00 EDT, Route to Pharmacy Electronically, [facility] #[id number], Partial fill upon patient req... Start Date: 12/22/22 Status: Ordered ProAir HFA 90 mcg/inh inhalation aerosol with adapter 2, puffs, Inhalation, 4 times a day, PRN, # 1 each, Refills 5, Tot. Refills 5, Maintenance, 10/17/21 15:25:00 EDT, Route to Pharmacy Electronically, [id number], [facility] #[id number], 151, cm, 09/29/21 13:12:00 EDT, Hei... Start [...] mL, 0 Refills, Maintenance, 11/27/22 15:51:00 EDT, [facility] #[id number], 12, USE 4 ML VIA NEBULIZER TWICE DAILY USE WITH 0.... Start Date: 11/27/22 Status: Ordered traMADol 50 mg oral tablet 1 tablet = 50 mg, By Mouth, Every 12 hours, PRN for pain, # 30 tablet, 2 Refills, Acute 01/21/23 12:24:00 EDT, 11/20/22 12:24:00 EDT, Tablet, [facility] #[id number], Partial fill upon patient request if the prescription is for a schedule II opioi... Start Date: 11/20/22 Stop Date: 01/21/23 Status: Ordered Trelegy Ellipta 200 mcg-62.5 mcg-25 mcg/inh inhalation powder 1 puffs, Inhalation, Daily, at the same time every day, j44.9, # 1 each, 6 Refills, Maintenance, 10/14/22 11:12:00 EDT, Powder, [facility] #[id number], Partial fill upon patient request if the [...] chart review meeting GFR criteria 6Admission to [facility] [place] for CHF 11/2020. Cardiac MRI: LVEF 44%; 12/16/20 echo at [facility]: LVEF=40-45% 8Per CT w/contrast 12/19/2021: Irregular partially calcified tissue along the distal left main pulmonary artery extending along the regular small caliber left lower lobe pulmonary artery branch probably reflecting chronic thrombus.. 35380-Sczjleqht as lung mass. S/P R-CHOP x 6 cycles. Vital Signs Most recent to oldest [Reference Range]: 1 2 Height 150.0 cm (01/11/23 10:59 AM) 150.0 cm (01/11/23 10:54 AM) Weight 60.6 kg (01/11/23 10:54 AM) Oxygen Saturation [94-100 %] 97 % (01/11/23 10:54 AM) Pulse Rate [55-90 bpm] 64 bpm (01/11/23 10:54 AM) Body Mass Index [18.5-24.99 kg/m2] 26.93 kg/m2 *H* (01/11/23 10:54 AM) Blood Pressure [90-138/55-84 mm Hg] 120/ 74mm Hg (01/11/23 10:59 AM) 143/72mm Hg *H* (01/11/23 10:54 AM) Mode of Delivery (Oxygen) Room air (01/11/23 10:54 AM) Blood pressure sites Arm, left (01/11/23 10:59 AM) Arm, left (01/11/23 10:54 AM) Weight Obtained Via Standing scale (01/11/23 10:54 AM) Social History Social History Type Response Smoking Status Former smoker entered on: 09/06/14 Sex Patient Care team information Care Team Personnel Name: Manuel Mayes MD Position: [facility] Physician - Pulm/Critical Care Member Role: Geriatric Physical Therapist Address: Address: [address] [place] [address] [address] [facility] [place] [address]- Name: Kenneth Chowdary MD Position: [facility] Cardiology MD Member Role: Deli/Bakery Associate Address: Address: [address] [place] [address] [address] [facility] [place] [address]- Name: Robert Feliz MD Position: [facility] Physician - Primary Care Member Role: PCP Address: Address: [address] [place] [address]- [place] Name: Georgette Silva Position: [facility] Mid Wife Member Role: Saw Tailer Name: Epi Turner Member Role: Neurologist Name: Mariposa BROWN, Zi Méndez Position: Reference Physician Member Role: Straightening Machine Operator Address: Address: [address] [place] [address] [address] [facility] [place] [place] [address]- [place] Care Team Related Persons Name: RAMIRO MARR Address: home [address] [place] [address]
--- OUTSIDE RECORDS SUMMARY | 2023-08-31 08:15 | XMS_ITS | Continuity of Care Document ---
Author Organization [facility] Address [address] [address]- Care Team Providers Care Machine Bunch Maker Name Role Phone Tray BROWN, Robert Anthony Primary Care Physician [phone] Encounter [facility] Date(s): 11/26/22 - 12/26/22 [facility] [address] [address]- Allergies, Adverse Reactions, Alerts Substance Reaction Severity Status codeine Active tetanus toxoid Active sulfa drugs Active Fish Active Immunizations Given and Recorded Vaccine Date Status Refusal Reason [id number] 12y+ bivalent booster vax 08/15/22 Recorded Influenza Virus Vaccine (oldterm) 1 02/03/22 Recor ded SARS-CoV-2 mRNA (edvhlmo-wxbf-iorfw) vax 08/06/21 Recorded SARS-CoV-2 (COVID-19) mRNA BNT-162b2 [...] 06/20/12 Recorde d 1Result Comment: influenza at [facility] 2Location History: [facility] Albert 3Location History: [facility] 4Result Comment: [06/19/2016] RIVERBEND 5Result Comment: [06/19/2016] riverbend 6Early/Late Reason: Other : 7Result Comment: [06/19/2016] RIVERBEND 8Result Comment: [06/19/2016] riverbend 9Result Comment: [06/19/2016] riverbend 10Result Comment: [06/19/2016] RIVERBEND Medications albuterol 0.083% inhalation solution 3 mL, Inhalation, Every 6 hours, USE ACAPELLA DEVICE AFTER EVERY TREATMENT., # 360 mL, 5 Refills, [facility] #[id number], 151, cm, 09/29/21 13:12:00 EDT, Height, 61.69, kg, 09/29/21 13:11:00 EDT, Dry Weight Start Date: 11/13/21 Status: Ordered bisoprolol 5 mg oral tablet See Instructions, TAKE 1/2 TABLET DAILY, # 45 tablet, 1 Refills, Maintenance, 09/04/22 16:11:00 EDT, [facility], 150, cm, 08/28/22 9:37:00 EDT, Height, 61, kg, 04/17/22 11:31:00 EST, Dry Weight Start Date: 09/04/22 Status: Ordered clopidogrel 75 mg oral tablet 1, tablet, By Mouth, Daily, # 90 Unknown, Refills 0, Tot. Refills 0, Maintenance, 10/19/22 15:23:00EDT, Route to Pharmacy Electronically, [facility], 150, cm, 08/28/22 9:37:00 EDT, [...] 12/22/22 10:35:00 EDT, Route to Pharmacy Electronically, [facility] #[id number], Partial fill upon patient req... Start Date: 12/22/22 Status: Ordered ProAir HFA 90 mcg/inh inhalation aerosol with adapter 2, puffs, Inhalation, 4 times a day, PRN, # 1 each, Refills 5, Tot. Refills 5, Maintenance, 10/17/21 15:25:00 EDT, Route to Pharmacy Electronically, [id number], [facility] #[id number], 151, cm, 09/29/21 13:12:00 EDT, Hei... Start [...] mL, 0 Refills, Maintenance, 11/27/22 15:51:00 EDT, [facility] #[id number], 12, USE 4 ML VIA NEBULIZER TWICE DAILY USE WITH 0.... Start Date: 11/27/22 Status: Ordered traMADol 50 mg oral tablet 1 tablet = 50 mg, By Mouth, Every 12 hours, PRN for pain, # 30 tablet, 2 Refills, Acute 01/21/23 12:24:00 EDT, 11/20/22 12:24:00 EDT, Tablet, [facility] #[id number], Partial fill upon patient request if the prescription is for a schedule II opioi... Start Date: 11/20/22 Stop Date: 01/21/23 Status: Ordered Trelegy Ellipta 200 mcg-62.5 mcg-25 mcg/inh inhalation powder 1 puffs, Inhalation, Daily, at the same time every day, j44.9, # 1 each, 6 Refills, Maintenance, 10/14/22 11:12:00 EDT, Powder, [facility] #[id number], Partial fill upon patient request if the [...] pulmonary artery branch probably reflecting chronic thrombus.. 61481-Oebprmyzr as lung mass. S/P R-CHOP x 6 cycles. Social History Social History Type Response Smoking Status Former smoker entered on: 09/06/14 Sex Patient Care team information Care Team Personnel Name: Francoise Black RN Position: S RN Member Role: Primary Care Nurse Name: Chiqui Stoll RN Position: S RN Member Role: Primary Care Nurse Name: Robert Feliz MD Position: S Physician - Primary Care Member Role: PCP Address: Address: [address] [place] [address]- Care Team Related Persons Name: RAMIRO MARR Address: home [address] [place] [address]
--- OUTSIDE RECORDS SUMMARY | 2023-08-31 08:15 | XMS_ITS | Continuity of Care Document ---
Author Organization [facility] Zac lt Address [address] [place] [address]- Care Team Providers Care Supervisor Costuming Name Role Phone Tray BROWN, Robert Anthony Primary Care Physician [id number] Date(s[facility]23 - 07/23/23 [facility] Adult [address] [place] [address]- Allergies, Adverse Reactions, Alerts Substance Reaction Severity [...] virus vaccine, inactivated 6 02/09/12 Re corded [id number] 12y+ bivalent booster vax 08/15/22 Recorded Influenza Virus Vaccine (oldterm) 7 02/03/22 Recor ded SARS-CoV-2 mRNA (ukqjyee-cxbs-sndss) vax 08/06/21 Recorded SARS-CoV-2 (COVID-19) mRNA BNT-162b2 [...] Comment: [06/19/2016] RIVERBEND 7Result Comment: influenza at [facility] 8Result Comment: [06/19/2016] riverbend 9Result Comment: [06/19/2016] riverbend 10Result Comment: [06/19/2016] RIVERBEND Medications albuterol 0.083% inhalation solution 3 mL, Inhalation, Every 6 hours, USE ACAPELLA DEVICE AFTER EVERY TREATMENT. J44.9, # 360 mL, 5 Refills, 01/18/23 8:59:00 EDT, [facility] #[id number], J44.9, 150, cm, 01/11/23 10:59:00 EDT, Height, 61, kg, 04/17/22 11:31:00 EST, Dry Weight Start Date: 01/18/23 Status: Ordered benzonatate 100 mg oral capsule 1 capsule = 100 mg, By Mouth, 3 times a day, PRN as needed for cough, for 7 days, # 21 capsule, 0 Refills, Acute 07/28/23 4:16:00 EDT, 07/21/23 4:16:00 EDT, Capsule, [facility]/pharmacy #[id number], Partial fill upon patient request if the [...] Refills, Soft Stop, 07/19/23 9:46:00 EDT, Patch, [facility]/pharmacy #[id number], Partial fill upon patient request [...] 10/17/21 15:25:00 EDT, Route to Pharmacy Electronically, [id number], [facility] #[id number], 151, cm, 09/29/21 13:12:00 EDT, Hei... Start [...] mL, 5 Refills, Maintenance, 02/11/23 9:46:00 EDT, [facility] #[id number], USE 4 ML VIANEBULIZER TWICE DAILY USE WITH 0.5% TOGETHER IN VIA... Start Date: 02/11/23 Status: Ordered traMADol 50 mg oral tablet 1 tablet = 50 mg, By Mouth, Every 12 hours, PRN for pain, # 30 tablet, 5 Refills, Acute 01/06/24 10:48:00 EDT, 07/06/23 10:47:00 EDT, Tablet, [facility]/pharmacy #[id number], Partial fill upon patient request [...] chart review meeting GFR criteria 6Admission to [facility] for CHF 11/2020. Cardiac MRI: LVEF 44%; 12/16/20 echo at [facility]: LVEF=40-45% 8Per CT w/contrast 12/19/2021: Irregular partially calcified tissue along the distal left main pulmonary artery extending along the regular small caliber left lower lobe pulmonary artery branch probably reflecting chronic thrombus.. [id number]-Ydksvbwfv as lung mass. S/P R-CHOP x 6 cycles. Social History Social History Type Response Smoking Status Former smoker entered on: 09/06/14 Sex Patient Care team information Care Team Personnel Name: Manuel Mayes MD Position: [facility] Physician - Pulm/Critical Care Member Role: Trains Service Conductor Address: Address: [address] [facility] [address] [facility] [place] [address]- Name: Kenneth Chowdary MD Position: [facility] Cardiology MD Member Role: Commercial Credit Specialist Address: Address: [address] [facility] [facility] [address] [place] [address]- Name: Robert Feliz MD Position: [facility] Physician - Primary Care Member Role: PCP Address: Address: [address] [place], [place] [address], [place] [address]- [place] Name: Georgette Silva Position: [facility] Physician Gynecologist Member Role: Ballistics Expert Name: Epi Turner Member Role: Neurologist Name: Mariposa BROWN, Zi Méndez Position: Reference Physician Member Role: Instrument Mechanic Address: Address: [address] [place] [address] [place] [address]- [place] Care Team Related Persons Name: PARENTRAMIRO Address: home [address] [id number]
--- OUTSIDE RECORDS SUMMARY | 2023-08-31 08:15 | XMS_ITS | Continuity of Care Document ---
Author Organization [facility] Address [address] [place] [address]- Care Team Providers Care Respiratory Supervisor Name Role Phone Tray BROWN, Robert Anthony Primary Care Physician [phone] Encounter [facility] Date(s): 02/28/21 - 03/30/21 [facility] [address] [place] [id number] Allergies, Adverse Reactions, Alerts Substance Reaction [...] vaccine 9 06/20/12 Recorded 1Location History: [facility] 2Location History: [facility] 3Result Comment: [06/19/2016] RIVERBEND 4Result Comment: [06/19/2016] riverbend 5Early/Late Reason: Other : 6Result Comment: [06/19/2016] RIVERBEND 7Result Comment: [06/19/2016] riverbend 8Result Comment: [06/19/2016] riverbend 9Result Comment: [06/19/2016] RIVERBEND Medications albuterol 0.083% inhalation solution 3 mL = 2.5 mg, Inhalation, Every 6 hours, use Acapella device after every treatment, # 120 each, 3 Refills, Maintenance, 06/27/20 15:48:00 EST, Solution, [facility] #[id number], 151, cm, 02/05/20 7:35:00 EDT, Height Start Date: 06/27/20 Status: Ordered amoxicillin 500 mg oral capsule 4 capsule = 2,000 mg, By Mouth, Once, take 4 capsules prior to dental procedure, # 4 capsule, 0 Refills, Soft Stop, 08/15/20 16:35:00 EDT, [facility] #[id number], 151, cm, 02/05/20 7:35:00 EDT, Height Start Date: 08/15/20 Status: Ordered Hyper-Don 7% inhalation solution 4 mL = 0.28 Gm, Neb, 2 times a day, take with 0.5ml = 2.5 mg albuterol (add hypersal 4ml to 0.5ml albuterol) twice a day, # 240 mL, 11 Refills, Maintenance, 08/07/20 9:58:00 EDT, [facility]#74415, J47.0 bronchiectasis, 4 mL Neb 2 times a da... Start Date: 08/07/20 Stop Date: 08/02/21 Status: Ordered Lasix 40 mg oral tablet 40 mg, 1, tablet, By Mouth, Daily, prescribed by [facility] doctor 12/18/20, # 30 tablet, Refills 2, Tot. Refills 2, Maintenance, 01/10/21 13:42:00 EDT, Route to Pharmacy Electronically, [facility] #[id number], Partial fill upon patient request if th... Start Date: 01/10/21 Status: Ordered losartan 25 mg oral tablet 12.5 mg, 0.5, tablet, By Mouth, Daily, Take 0.5 tablet (12.5mg) daily, # 15 tablet, Refills 11, Tot. Refills 11, Maintenance, 02/05/21 8:59:00 EDT, Route to Pharmacy Electronically, [facility] #[id number], Partial fill upon patient request if the... Start Date: 02/05/21 Status: Ordered meloxicam 7.5 mg oral tablet 1 tablet, By Mouth, Daily, # 90 tablet, 0 Refills, [facility] #[id number], 151, cm, 12/27/20 8:19:00 EDT, Height Start [...] 01/10/21 13:45:00 EDT, Route to Pharmacy Electronically, [facility] #[id number], Partial fill upon patientrequest if the prescription is for a schedule II op... Start Date: 01/10/21 Status: Ordered ProAir HFA 90 mcg/inh inhalation aerosol with adapter 2, puffs, Inhalation, 4 times a day, PRN, # 1 each, Refills 6, Tot. Refills 6, Maintenance, 08/26/20 14:10:00 EDT, Route to Pharmacy Electronically, [id number], [facility] #[id number], 151, cm, 08/26/20 13:26:00 EDT, Height Start Date: 08/26/20 Status: Ordered rosuvastatin 5 mg oral capsule 1 capsule = 5 mg, By Mouth, Daily, # 30 capsule, 6 Refills, Maintenance, 03/28/21 16:12:00 EST, Capsule, [facility] #[id number], Partial fill upon patient request if the prescription is for a schedule II opioid drug., 151, cm, 03/07/21 9:27:00 ES... Start Date: 03/28/21 Status: Ordered Trelegy Ellipta 200 mcg-62.5 mcg-25 mcg/inh inhalation powder 1 puffs, Inhalation, Daily, at the same time every day, # 1 each, 6 Refills, Maintenance, 12/06/20 9:31:00 EDT, Powder, [facility] #[id number], Partial fill upon patient request if the [...]
--- OUTSIDE RECORDS SUMMARY | 2023-08-31 08:15 | XMS_ITS | Continuity of Care Document ---
Author Organization [facility] Riky Zac lt Address [address] [place] [address]- Care Team Providers Care Safety Belt Installer Name Role Phone Tray BROWN, Robert Anthony Primary Care Physician [place] [facility]23 - 07/31/23 [facility] [place] [facility] [address] [place] [address]- Allergies, Adverse Reactions, Alerts Substance Reaction Severity [...] virus vaccine, inactivated 6 02/09/12 Re corded [id number] 12y+ bivalent booster vax 08/15/22 Recorded Influenza Virus Vaccine (oldterm) 7 02/03/22 Recor ded SARS-CoV-2 mRNA (cczliho-zpud-tfwoo) vax 08/06/21 Recorded SARS-CoV-2 (COVID-19) mRNA BNT-162b2 [...] Comment: [06/19/2016] [facility] 7Result Comment: influenza at [facility] 8Result Comment: [06/19/2016] [facility] 9Result Comment: [06/19/2016] [facility] 10Result Comment: [06/19/2016] [facility] Medications albuterol 0.083% inhalation solution 3 mL, Inhalation, Every 6 hours, USE ACAPELLA DEVICE AFTER EVERY TREATMENT. J44.9, # 360 mL, 5 Refills, 01/18/23 8:59:00 EDT, [facility] #[id number], J44.9, 150, cm, 01/11/23 10:59:00 EDT, Height, 61, kg, 04/17/22 11:31:00 EST, Dry Weight Start Date: 01/18/23 Status: Ordered bisoprolol 5 mg oral tablet See Instructions, TAKE 1/2 TABLET DAILY, # 45 Unknown, 0 Refills, Maintenance, 02/22/23 7:49:00 EDT, [facility], 150, cm, 01/11/23 10:59:00 EDT, Height, 61, kg, 04/17/22 11:31:00 EST, Dry Weight Start Date: 02/22/23 Status: Ordered clopidogrel 75 mg oral tablet See Instructions, TAKE 1 TABLET DAILY, # 90 Unknown, Refills 0, Maintenance, 02/22/23 7:49:00 EDT, Instructions Replace Required Details, Route to Pharmacy Electronically, [facility], 150, cm, 01/11/23 10:59:00 EDT, Height, [...] Refills, Soft Stop, 07/19/23 9:46:00 EDT, Patch, [facility]/pharmacy #[id number], Partial fill upon patient request [...] 10/17/21 15:25:00 EDT, Route to Pharmacy Electronically, [id number], [facility] #[id number], 151, cm, 09/29/21 13:12:00 EDT, Hei... Start [...] mL, 5 Refills, Maintenance, 02/11/23 9:46:00 EDT, [facility] #[id number], USE 4 ML VIANEBULIZER TWICE DAILY USE WITH 0.5% TOGETHER IN VIA... Start Date: 02/11/23 Status: Ordered traMADol 50 mg oral tablet 1 tablet = 50 mg, By Mouth, Every 12 hours, PRN for pain, # 30 tablet, 5 Refills, Acute 01/06/24 10:48:00 EDT, 07/06/23 10:47:00 EDT, Tablet, [facility]/pharmacy #[id number], Partial fill upon patient request [...] chart review meeting GFR criteria 6Admission to [facility] for CHF 11/2020. Cardiac MRI: LVEF 44%; 12/16/20 echo at [facility]: LVEF=40-45% 8Per CT w/contrast 12/19/2021: Irregular partially calcified tissue along the distal left main pulmonary artery extending along the regular small caliber left lower lobe pulmonary artery branch probably reflecting chronic thrombus.. 17723-Whoyhophm as lung mass. S/P R-CHOP x 6 cycles. Social History Social History Type Response Smoking Status Former smoker entered on: 09/06/14 Sex Patient Care team information Care Team Personnel Name: Manuel Mayes MD Position: [facility] Physician - Pulm/Critical Care Member Role: Washing Machine Assembler Address: Address: [address] [place] [address] [address] [facility] [place] [address]- Name: Kenneth Chowdary MD Position: [facility] Cardiology MD Member Role: Ophthalmology Assistant Address: Address: [address] [place] [address] [address] [place] [address]- Name: Robert Feliz MD Position: [facility] Physician - Primary Care Member Role: PCP Address: Address: [address] [place] [address]- [place] Name: Georgette Silva Position: [facility] [place] Hand Molder And Caster Member Role: Academic Affairs Manager Name: Epi Turner Member Role: Neurologist Name: Mariposa BROWN, Zi Méndez Position: Reference Physician Member Role: Truck Trailer Mechanic Address: Address: [address] [place] [address] [address] [facility] [place] [address]- [place] Care Team Related Persons Name: RAMIRO MARR Address: [address] [address]
--- OUTSIDE RECORDS SUMMARY | 2023-08-31 08:15 | XMS_ITS | Continuity of Care Document ---
Author Organization [facility] Address [address] [place] [address]- Care Team Providers Care Border Measurer Name Role Phone Tray BROWN, Robert Anthony Primary Care Physician Encounter [facility] Date(s): 06/23/23 - 07/23/23 [facility] [address] [place] [address]- [place] Allergies, Adverse Reactions, Alerts Substance Reaction [...] virus vaccine, inactivated 6 02/09/12 Re corded [id number] 12y+ bivalent booster vax 08/15/22 Recorded Influenza Virus Vaccine (oldterm) 7 02/03/22 Recor ded SARS-CoV-2 mRNA (ehfleai-rupq-wnvzf) vax 08/06/21 Recorded SARS-CoV-2 (COVID-19) mRNA BNT-162b2 [...] Comment: [06/19/2016] [facility] 7Result Comment: influenza at [facility] 8Result Comment: [06/19/2016] [facility] 9Result Comment: [06/19/2016] [facility] 10Result Comment: [06/19/2016] [facility] Medications albuterol 0.083% inhalation solution 3 mL, Inhalation, Every 6 hours, USE ACAPELLA DEVICE AFTER EVERY TREATMENT. J44.9, # 360 mL, 5 Refills, 01/18/23 8:59:00 EDT, [facility] #[id number], J44.9, 150, cm, 01/11/23 10:59:00 EDT, Height, 61, kg, 04/17/22 11:31:00 EST, Dry Weight Start Date: 01/18/23 Status: Ordered benzonatate 100 mg oral capsule 1 capsule = 100 mg, By Mouth, 3 times a day, PRN as needed for cough, for 7 days, # 21 capsule, 0 Refills, Acute 07/28/23 4:16:00 EDT, 07/21/23 4:16:00 EDT, Capsule, [facility]/pharmacy #[id number], Partial fill upon patient request if the [...] Refills, Soft Stop, 07/19/23 9:46:00 EDT, Patch, [facility]/pharmacy #[id number], Partial fill upon patient request if [...] 10/17/21 15:25:00 EDT, Route to Pharmacy Electronically, [id number], [facility][id number], 151, cm, 09/29/21 13:12:00 EDT, Hei... Start [...] mL, 5 Refills, Maintenance, 02/11/23 9:46:00 EDT, [facility] #[id number], USE 4 ML VIANEBULIZER TWICE DAILY USE WITH 0.5% TOGETHER IN VIA... Start Date: 02/11/23 Status: Ordered traMADol 50 mg oral tablet 1 tablet = 50 mg, By Mouth, Every 12 hours, PRN for pain, # 30 tablet, 5 Refills, Acute 01/06/24 10:48:00 EDT, 07/06/23 10:47:00 EDT, Tablet, [facility]/pharmacy #0373, Partial fill upon patient request if [...] pulmonary artery branch probably reflecting chronic thrombus.. 58106-Bqtcsyjta as lung mass. S/P R-CHOP x 6 cycles. Social History Social History Type Response Smoking Status Former smoker entered on: 09/06/14 Sex Patient Care team information Care Team Personnel Name: Manuel Mayes MD Position: [facility] Physician - Pulm/Critical Care Member Role: Grounds Cleaner Address: Address: [address] [place] [address] [address] [facility] [place] [address]- Name: Kenneth Chowdary MD Position: [facility] Cardiology MD Member Role: Guest Services Associate Address: Address: [address] [place] [address] [address] [facility] [place] [address]- Name: Robert Feliz MD Position: [facility] Physician - Primary Care Member Role: PCP Address: Address: [address] [place] [address]- [place] Name: Georgette Silva Position: [facility] Pipeline Maintenance Supervisor Member Role: Senior Web Designer Name: Epi Turner Member Role: Neurologist Name: Mariposa BROWN, Zi Méndez Position: Reference Physician Member Role: Health And Safety Technician Address: Address: [address] [place] [address] Rheumatology [place], [place] [address] Care Team Related Persons Name: RAMIRO MARR Address: home [address] [place] [address]"
--- OUTSIDE RECORDS SUMMARY | 2023-08-31 08:15 | XMS_ITS | Continuity of Care Document ---
Author Organization [facility] Address [address] [place] [address]- Care Team Providers Care Inside Phone Sales Name Role Phone Tray BROWN, Robert Anthony Primary Care Physician [place] [facility] [place] 08/21/22 [facility] [address] [place] [address] Attending Physician: Adithya Sheth Admitting Physician: Adithya Sheth Referring Physician: AdmtrAdithya Allergies, Adverse Reactions, Alerts Substance Reaction Severity Status codeine Active tetanus toxoid Active sulfa drugs Active Fish Active Immunizations Given and Recorded Vaccine Date Status Refusal Reason Influenza Virus Vaccine (oldterm) 1 02/03/22 Recor ded SARS-CoV-2 mRNA (snrpqzj-fdsp-rxxzb) vax 08/06/21 Recorded SARS-CoV-2 (COVID-19) mRNA BNT-162b2 [...] 06/20/12 Recorde d 1Result Comment: influenza at [facility] 2Location History: [facility] 3Location History: [facility] 4Result Comment: [06/19/2016] [facility] 5Result Comment: [06/19/2016] [facility] 6Early/Late Reason: Other : 7Result Comment: [06/19/2016] [facility] 8Result Comment: [06/19/2016] [facility] 9Result Comment: [06/19/2016] [facility] 10Result Comment: [06/19/2016] [facility] Medications albuterol 0.083% inhalation solution 3 mL, Inhalation, Every 6 hours, USE ACAPELLA DEVICE AFTER EVERY TREATMENT., # 360 mL, 5 Refills, [facility] #[id number], 151, cm, 09/29/21 13:12:00 EDT, Height, 61.69, [...] 10/17/21 15:25:00 EDT, Route to Pharmacy Electronically, [id number], [facility][id number], 151, cm, 09/29/21 13:12:00 EDT, Hei... Start Date: 10/17/21 Status: Ordered Sodium Chloride, Inhalation 0.9% inhalation solution See Instructions, USE 4 ML VIA NEBULIZER TWICE DAILY USE WITH 0.5% VIA INHALER SOLUTION TOGETHER INVIA NEBULIZER, # 300 mL, 0 Refills, Maintenance, 04/28/22 9:38:00 EST, [facility] #[id number],25, USE 4 ML VIA NEBULIZER TWICE DAILY [...] pulmonary artery branch probably reflecting chronic thrombus.. 21878-Xqmawxkdi as lung mass. S/P R-CHOP x 6 cycles. Vital Signs Most recent to oldest [Reference Range]: 1 Height 151 cm (02/08/19 4:03 PM) Weight 63 kg (02/08/19 4:03 PM) Social History Social History Type Response Smoking Status Former smoker entered on: 09/06/14 Sex Note * Event Display: EKG Non Authored Date: * Event Display: X-Ray Chest, Non- Authored Date: * Event Display: X-Ray Chest, Non- Authored Date: * Event Display: Non Radiology Results Authored Date: Patient Care team information Care Team Personnel Name: Wayne SPARKS, Francoise Position: [facility] RN Member Role: Primary Care Nurse Name: Chiqui Stoll RN Position: S RN Member Role: Primary Care Nurse Name: Robert Feliz MD Position: [facility] Primary Care Physician Member Role: PCP Address: Address: [address] [place] [address]- Care Team Related Persons Name: RAMIRO MARR Address: home [address] [place] [address]
--- OUTSIDE RECORDS SUMMARY | 2023-08-31 08:15 | XMS_ITS | Continuity of Care Document ---
Author Organization [facility] Address [address] [place] [address]- Care Team Providers Care Statistician Theoretical Name Role Phone Tray BROWN, Robert Anthony Primary Care Physician [phone] [id number] Date(s): 02/14/21 - 04/16/[address] [address] Discharge Disposition: A-D/C Home Attending Physician: Robert Feliz MD Admitting Physician: Robert Feliz MD Referring Physician: Robert Feliz MD Allergies, [...] 3 Refills, Maintenance, 06/27/20 15:48:00 EST, Solution, [facility] #[id number], 151, cm, 02/05/20 7:35:00 EDT, Height Start Date: 06/27/20 Status: Ordered amoxicillin 500 mg oral capsule 4 capsule = 2,000 mg, By Mouth, Once, take 4 capsules prior to dental procedure, # 4 capsule, 0 Refills, Soft Stop, 08/15/20 16:35:00 EDT, [facility] #[id number], 151, cm, 02/05/20 7:35:00 EDT, Height Start Date: 08/15/20 Status: Ordered clopidogrel 75 mg oral tablet See Instructions, TAKE 1 TABLET BY MOUTH DAILY, # 30 tablet, Refills 5, Tot. Refills 5, Instructions Replace Required Details, Route to Pharmacy Electronically, [facility] #[id number], 151, cm, 03/07/21 9:27:00 EST, Height Start Date: 04/15/21 Status: Ordered Hyper-Don 7% inhalation solution 4 mL = 0.28 Gm, Neb, 2 times a day, take with 0.5ml = 2.5 mg albuterol (add hypersal 4ml to 0.5ml albuterol) twice a day, # 240 mL, 11 Refills, Maintenance, 08/07/20 9:58:00 EDT, [facility]77624, J47.0 bronchiectasis, 4 mL Neb 2 times a da... Start Date: 08/07/20 Stop Date: 08/02/21 Status: Ordered Lasix 40 mg oral tablet 40 mg, 1, tablet, By Mouth, Daily, prescribed by [facility] doctor 12/18/20, # 30 tablet, Refills 5, Tot. Refills 5, Maintenance, 04/16/21 11:55:00 EST, Route to Pharmacy Electronically, [facility]66227, Partial fill upon patient request if th... Start Date: 04/16/21 Status: Ordered losartan 25 mg oral tablet 12.5 mg, 0.5, tablet, By Mouth, Daily, Take 0.5 tablet (12.5mg) daily, # 15 tablet, Refills 11, Tot. Refills 11, Maintenance, 02/05/21 8:59:00 EDT, Route to Pharmacy Electronically, [facility] #[id number], Partial fill upon patient request if the... Start Date: 02/05/21 Status: Ordered meloxicam 7.5 mg oral tablet 1 tablet, By Mouth, Daily, # 90 tablet, 0 Refills, [facility][id number], 151, cm, 12/27/20 8:19:00 EDT, Height Start [...] 01/10/21 13:45:00 EDT, Route to Pharmacy Electronically, [facility][id number], Partial fill upon patientrequest if the prescription is for a schedule II op... Start Date: 01/10/21 Status: Ordered ProAir HFA 90 mcg/inh inhalation aerosol with adapter 2, puffs, Inhalation, 4 times a day, PRN, # 1 each, Refills 6, Tot. Refills 6, Maintenance, 08/26/20 14:10:00 EDT, Route to Pharmacy Electronically, [id number], [facility] #[id number], 151, cm, 08/26/20 13:26:00 EDT, Height Start Date: 08/26/20 Status: Ordered rosuvastatin 5 mg oral tablet 1 tablet = 5 mg, By Mouth, Daily, # 30 tablet, 5 Refills, Maintenance, 04/08/21 9:24:00 EST, Tablet, [facility] #18754, 151, cm, 03/07/21 9:27:00 EST, Height Start Date: 04/08/21 Stop Date: 10/05/21 Status: Ordered Trelegy Ellipta 200 mcg-62.5 mcg-25 mcg/inh inhalation powder 1 puffs, Inhalation, Daily, at the same time every day, # 1 each, 6 Refills, Maintenance, 12/06/20 9:31:00 EDT, Powder, [facility] #[id number], Partial fill upon patient request if the [...]
--- OUTSIDE RECORDS SUMMARY | 2023-08-31 08:15 | XMS_ITS | Continuity of Care Document ---
Author Organization [facility] Zac lt Address [address] [place] [address]- Care Team Providers Care Door To Door Sales Representative Name Role Phone Tray BROWN, Robert Anthony Primary Care Physician Encounter [facility] Date(s): 12/12/20 - 01/11/21 [facility] Adult [address] [place] [address]- Allergies, Adverse Reactions, Alerts Substance Reaction Severity [...] vaccine 9 06/20/12 Recorded 1Location History: [facility] 2Location History: [facility] 3Result Comment: [06/19/2016] [facility] 4Result Comment: [06/19/2016] [facility] 5Early/Late Reason: Other : 6Result Comment: [06/19/2016] [facility] 7Result Comment: [06/19/2016] [facility] 8Result Comment: [06/19/2016] [facility] 9Result Comment: [06/19/2016] [facility] Medications albuterol 0.083% inhalation solution 3 mL = 2.5 mg, Inhalation, Every 6 hours, use Acapella device after every treatment, # 120 each, 3 Refills, Maintenance, 06/27/20 15:48:00 EST, Solution, [facility] #[id number], 151, cm, 02/05/20 7:35:00 EDT, Height Start Date: 06/27/20 Status: Ordered amoxicillin 500 mg oral capsule 4 capsule = 2,000 mg, By Mouth, Once, take 4 capsules prior to dental procedure, # 4 capsule, 0 Refills, Soft Stop, 08/15/20 16:35:00 EDT, [facility] #[id number], 151, cm, 02/05/20 7:35:00 EDT, Height Start Date: 08/15/20 Status: Ordered Hyper-Don 7% inhalation solution 4 mL = 0.28 Gm, Neb, 2 times a day, take with 0.5ml = 2.5 mg albuterol (add hypersal 4ml to 0.5ml albuterol) twice a day, # 240 mL, 11 Refills, Maintenance, 08/07/20 9:58:00 EDT, [facility]#63201, J47.0 bronchiectasis, 4 mL Neb 2 times a da... Start Date: 08/07/20 Stop Date: 08/02/21 Status: Ordered Lasix 40 mg oral tablet 40 mg, 1, tablet, By Mouth, Daily, prescribed by [facility] doctor 12/18/20, # 30 tablet, Refills 2, Tot. Refills 2, Maintenance, 01/10/21 13:42:00 EDT, Route to Pharmacy Electronically, [facility] #[id number], Partial fill upon patient request if th... Start Date: 01/10/21 Status: Ordered meloxicam 7.5 mg oral tablet 1 tablet, By Mouth, Daily, # 90 tablet, 0 Refills, [facility] #[id number], 151, cm, 12/27/20 8:19:00 EDT, Height Start [...] 01/10/21 13:45:00 EDT, Route to Pharmacy Electronically, [facility] #[id number], Partial fill upon patientrequest if the prescription is for a schedule II op... Start Date: 01/10/21 Status: Ordered ProAir HFA 90 mcg/inh inhalation aerosol with adapter 2, puffs, Inhalation, 4 times a day, PRN, # 1 each, Refills 6, Tot. Refills 6, Maintenance, 08/26/20 14:10:00 EDT, Route to Pharmacy Electronically, [id number], [facility] #[id number], 151, cm, 08/26/20 13:26:00 EDT, Height Start Date: 08/26/20 Status: Ordered Trelegy Ellipta 200 mcg-62.5 mcg-25 mcg/inh inhalation powder 1 puffs, Inhalation, Daily, at the same time every day, # 1 each, 6 Refills, Maintenance, 12/06/20 9:31:00 EDT, Powder, [facility] #31174, Partial fill upon patient request if the [...]
--- OUTSIDE RECORDS SUMMARY | 2023-08-31 08:15 | XMS_ITS | Continuity of Care Document ---
Author Organization [facility] Address [address] [address]- Care Team Providers Care Certified Professional Controller Name Role Phone Tray BROWN, Robert Anthony Primary Care Physician Encounter [facility] Date(s): 10/23/19 - 11/22/19 [facility] [address] [address]- [place] Allergies, Adverse Reactions, Alerts Substance [...] 1 Refills, Maintenance, 06/01/19 12:03:00 EST, Tablet, [facility] #[id number], 151, cm, 05/23/19 11:27:00 EST, Height, 65.4, [...] 10/03/18 15:01:00 EDT, Route to Pharmacy Electronically, [id number], [facility], J47.9 Start Date: 10/03/18 Status: Ordered ProAir HFA 90 mcg/inh inhalation aerosol with adapter 2, puffs, Inhalation, 4 times a day, PRN, # 1 each, Refills 6, Tot. Refills 6, Maintenance, 05/17/19 14:49:00 EST, Route to Pharmacy Electronically, [id number], [facility] #[id number], 151, cm, 05/17/19 14:23:00 EST, Hei... Start [...]
--- OUTSIDE RECORDS SUMMARY | 2023-08-31 08:15 | XMS_ITS | Continuity of Care Document ---
Author Organization [facility] Address [address] [place] [address]- Care Team Providers Care Box Sealing Machine Operator Name Role Phone Robert Feliz MD Primary Care Physician [phone] [place] [facility] [place]): [place]21 - 02/12/21 [facility] [address] [place] [address]- [place] Encounter Diagnosis Cardiomyopathy(Discharge Diagnosis) - 02/05/21 Heart failure with reduced ejection fraction(Discharge Diagnosis) - 02/07/21 Attending Physician: Kenneth Chowdary MD Referring Physician: Robert Feliz MD Allergies, [...] 3 Refills, Maintenance, 06/27/20 15:48:00 EST, Solution, [facility] #[id number], 151, cm, 02/05/20 7:35:00 EDT, Height Start Date: 06/27/20 Status: Ordered amoxicillin 500 mg oral capsule 4 capsule = 2,000 mg, By Mouth, Once, take 4 capsules prior to dental procedure, # 4 capsule, 0 Refills, Soft Stop, 08/15/20 16:35:00 EDT, [facility]85063, 151, cm, 02/05/20 7:35:00 EDT, Height Start Date: 08/15/20 Status: Ordered Hyper-Don 7% inhalation solution 4 mL = 0.28 Gm, Neb, 2 times a day, take with 0.5ml = 2.5 mg albuterol (add hypersal 4ml to 0.5ml albuterol) twice a day, # 240 mL, 11 Refills, Maintenance, 08/07/20 9:58:00 EDT, [facility]07962, J47.0 bronchiectasis, 4 mL Neb 2 times a da... Start Date: 08/07/20 Stop Date: 08/02/21 Status: Ordered Lasix 40 mg oral tablet 40 mg, 1, tablet, By Mouth, Daily, prescribed by [facility] doctor 12/18/20, # 30 tablet, Refills 2, Tot. Refills 2, Maintenance, 01/10/21 13:42:00 EDT, Route to Pharmacy Electronically, [facility]09924, Partial fill upon patient request if th... Start Date: 01/10/21 Status: Ordered losartan 25 mg oral tablet 12.5 mg, 0.5, tablet, By Mouth, Daily, Take 0.5 tablet (12.5mg) daily, # 15 tablet, Refills 11, Tot. Refills 11, Maintenance, 02/05/21 8:59:00 EDT, Route to Pharmacy Electronically, [facility] #[id number], Partial fill upon patient request if the... Start Date: 02/05/21 Status: Ordered meloxicam 7.5 mg oral tablet 1 tablet, By Mouth, Daily, # 90 tablet, 0 Refills, [facility] #85684, 151, cm, 12/27/20 8:19:00 EDT, Height Start [...] 01/10/21 13:45:00 EDT, Route to Pharmacy Electronically, [facility] #75136, Partial fill upon patientrequest if the prescription is for a schedule II op... Start Date: 01/10/21 Status: Ordered ProAir HFA 90 mcg/inh inhalation aerosol with adapter 2, puffs, Inhalation, 4 times a day, PRN, # 1 each, Refills 6, Tot. Refills 6, Maintenance, 08/26/20 14:10:00 EDT, Route to Pharmacy Electronically, [id number], [facility] #[id number], 151, cm, 08/26/20 13:26:00 EDT, Height Start Date: 08/26/20 Status: Ordered Trelegy Ellipta 200 mcg-62.5 mcg-25 mcg/inh inhalation powder 1 puffs, Inhalation, Daily, at the same time every day, # 1 each, 6 Refills, Maintenance, 12/06/20 9:31:00 EDT, Powder, [facility] #[id number], Partial fill upon patient request if the [...] Active Osteoarthritis of knee(Confirmed) Active Osteoporosis(Confirmed) Active Diagnosis Diagnosis Type Effective Dates Health Status Clinical Service Informant Cardiomyopathy Discharge Diagnosis 02/05/21 Heart failure with reduced ejection fraction Discharge Diagnosis 02/07/21 Vital Signs Most recent to oldest [Reference Range]: 1 Height 151 cm (02/05/21 8:23 AM) Weight 59.9 kg (02/05/21 8:23 AM) Oxygen Saturation [94-100 %] 99 % (02/05/21 8:23 AM) Pulse Rate [55-90 bpm] 59 bpm (02/05/21 8:23 AM) Body Mass Index [18.5-24.99] 26.27 *H* (02/05/21 8:23 AM) Blood Pressure [90-138/55-84 mm Hg] 110/ 62mm Hg (02/05/21 8:23 AM) Temperature [96.8-100.4 DegF] 96.1 DegF *L* (02/05/21 8:23 AM) Temperature Route Temporal (02/05/21 8:23 AM) Social History Social History Type Response Smoking Status Former smoker entered on: 09/06/14 Sex
--- OUTSIDE RECORDS SUMMARY | 2023-08-31 08:15 | XMS_ITS | Continuity of Care Document ---
Author Organization [facility] Address [address] [place] [address]- Care Team Providers Care Court Collections Officer Name Role Phone Tray BROWN, Robert Anthony Primary Care Physician Encounter [facility] Date(s): 05/21/21 - 06/20/21 [facility] [address] [place] [address]- [place] Allergies, Adverse Reactions, Alerts Substance Reaction [...] 3 Refills, Maintenance, 06/27/20 15:48:00 EST, Solution, [facility] #[id number], 151, cm, 02/05/20 7:35:00 EDT, Height Start [...] 5 Refills, Soft Stop, 05/06/21 17:27:00 EST, [facility] #[id number], 151, cm, 05/05/21 12:08:00 EST,Height Start Date: [...] Replace Required Details, [facility], [facility], cm, 05/05/21 12:08:00 EST, Height Start Date: 05/23/21 Status: Ordered Hyper-Don 7% inhalation solution 4 mL = 0.28 Gm, Neb, 2 times a day, for 30 days, take with 0.5ml = 2.5 mg albuterol (add hypersal 4ml to 0.5ml albuterol) twice a day, # 240 mL, 11 Refills, Hard Stop 08/02/21 9:58:00 EDT, 08/07/20 9:58:00 EDT, [facility] #[id number], J47.[address] [facility]... Start Date: 08/07/20 Stop Date: 08/02/21 Status: Ordered Hyper-Don 7% inhalation solution 4 mL = 0.28 Gm, Neb, 2 times a day, take with 0.5ml = 2.5 mg albuterol (add hypersal 4ml to 0.5ml albuterol) twice a day, # 720 mL, 1 Refills, Maintenance, 08/02/21 9:58:00 EDT, [facility], J47.0 bronchiectasis, 4 mL Neb [...] 1, tablet, By Mouth, Daily, prescribed by [facility] doctor 12/18/20, # 90 [...] 06/12/21 13:52:00 EST, Route to Pharmacy Electronically, [facility], 151, cm, 06/11/21 13:48:00 EST, Height Start Date: 06/12/21 Stop Date: 06/07/22 Status: Ordered meloxicam 7.5 mg oral tablet 1 tablet, By Mouth, Daily, # 90 tablet, 0 Refills, [facility] #[id number], 151, cm, 12/27/20 8:19:00 EDT, Height Start [...] 01/10/21 13:45:00 EDT, Route to Pharmacy Electronically, [facility] #[id number], Partial fill upon patientrequest if the prescription is for a schedule II op... Start Date: 01/10/21 Status: Ordered ProAir HFA 90 mcg/inh inhalation aerosol with adapter 2, puffs, Inhalation, 4 times a day, PRN, # 1 each, Refills 6, Tot. Refills 6, Maintenance, 08/26/20 14:10:00 EDT, Route to Pharmacy Electronically, [id number], [facility] #[id number], 151, cm, 08/26/20 13:26:00 EDT, Height Start Date: 08/26/20 Status: Ordered rosuvastatin 5 mg oral tablet 1 tablet = 5 mg, By Mouth, Daily, # 30 tablet, 5 Refills, Maintenance, 04/08/21 9:24:00 EST, Tablet, [facility] #[id number], 151, cm, 03/07/21 9:27:00 EST, Height Start Date: 04/08/21 Stop Date: 10/05/21 Status: Ordered Sodium Chloride, Inhalation 0.9% inhalation solution 4 mL = 0.036 Gm, Neb, 2 times a day, use with 0.5% albuterol solution together in nebulizer, # 240 mL, 6 Refills, Maintenance, 06/12/21 19:39:00 EST, [facility] #[id number], Partial fill upon patient request if the [...] Stop07/04/21 9:31:00 EST, 12/06/20 9:31:00 EDT, Powder, [facility] #[id number], Partial fill upon patient request if the [...]
--- OUTSIDE RECORDS SUMMARY | 2023-08-31 08:15 | XMS_ITS | Continuity of Care Document ---
Author Organization [facility] Address [address] [address]- Care Team Providers Care Preload Supervisor Name Role Phone Tray BROWN, Robert Anthony Primary Care Physician [phone] Encounter [facility] Date(s): 01/18/20 - 02/17/20 [facility] [address] [address]- [place] Attending Physician: Adithya Sheth Admitting Physician: Adithya [...] 7Result Comment: [06/19/2016] abby 8Result Comment: [06/19/2016] abby 9Result Comment: [06/19/2016] [facility] Medications amoxicillin 500 mg oral capsule 4 capsule = 2,000 mg, By Mouth, Once, take 4 capsules prior to dental procedure, # 4 capsule, 0 Refills, Soft Stop, 12/27/19 12:56:00 EDT, [facility] #[id number], 151, cm, 11/22/19 11:48:00 EDT,Height, 65.4, kg, 05/02/18 11:04:00 EST, Dry Weight Start Date: 12/27/19 Status: Ordered aspirin 81 mg oral tablet, chewable 81 mg, 1, tablet, By Mouth, Daily, # 90 tablet, Refills 3, Tot. Refills 3, Maintenance, 02/05/20 7:58:00 EDT, Route to Pharmacy Electronically, [facility] #59215, 151, cm, 02/05/20 7:35:00 EDT, Height, 65.4, kg, 05/02/18 11:04:00 EST, Dry We... Start Date: 02/05/20 Status: Ordered meloxicam 7.5 mg oral tablet 1 tablet = 7.5 mg, By Mouth, Daily, # 90 tablet, 1 Refills, Maintenance, 01/05/20 8:12:00 EDT, Tablet, [facility] #09356, 151, cm, 11/22/19 11:48:00 EDT, Height, 65.4, [...] 05/17/19 14:49:00 EST, Route to Pharmacy Electronically, [id number], [facility] #[id number], 151, cm, 05/17/19 14:23:00 EST, Hei... Start [...]
--- OUTSIDE RECORDS SUMMARY | 2023-08-31 08:15 | XMS_ITS | Continuity of Care Document ---
Author Organization [facility] Address [address] [address]- Care Team Providers Care Commercial Driver Name Role Phone Tray BROWN, Robert Anthony Primary Care Physician [phone] Encounter [facility] Date(s): 05/16/20 - 06/15/20 [facility] [address] [address]- [place] Allergies, Adverse Reactions, Alerts Substance Reaction [...] 0 Refills, Soft Stop, 12/27/19 12:56:00 EDT, [facility] #61204, 151, cm, 11/22/19 11:48:00 EDT,Height, 65.4, kg, 05/02/18 11:04:00 EST, Dry Weight Start Date: 12/27/19 Status: Ordered aspirin 81 mg oral tablet, chewable 81 mg, 1, tablet, By Mouth, Daily, # 90 tablet, Refills 3, Tot. Refills 3, Maintenance, 02/05/20 7:58:00 EDT, Route to Pharmacy Electronically, [facility] #39742, 151, cm, 02/05/20 7:35:00 EDT, Height, 65.4, kg, 05/02/18 11:04:00 EST, Dry We... Start Date: 02/05/20 Status: Ordered meloxicam 7.5 mg oral tablet 1 tablet = 7.5 mg, By Mouth, Daily, # 90 tablet, 1 Refills, Maintenance, 01/05/20 8:12:00 EDT, Tablet, [facility] #67204, 151, cm, 11/22/19 11:48:00 EDT, Height, 65.4, [...] 05/17/19 14:49:00 EST, Route to Pharmacy Electronically, [id number], [facility] #33752, 151, cm, 05/17/19 14:23:00 EST, Hei... Start [...] 05/07/20 13:57:00 EST, Route to Pharmacy Electronically, [facility] #01027, 151, cm, 02/05/20 7:35:00 EDT, Height Start Date: 05/07/20 Status: Ordered Problem List Condition Effective Dates Status Health Status Inform ant Cardiomyopathy(Confirmed) Active COPD (chronic obstructive pu lmonary disease)(Confirmed) Active Disorder of lung(Confirmed) Active Diverticulosis(Confirmed) Active Dysphagia(Confirmed) Active Abnormal echocardiogram(Confirmed) Active COPD with chronic bronchitis(Confirmed) Active History of Clostridium difficile(Confirmed) Active History of B-cell lymphoma(Confirmed) Active Insomnia(Confirmed) Active Lymphoma (clinical)(Confirmed) Active Migraines(Confirmed) Active ECLINE (obstructive sleep apnea)(Confirmed) Active Osteoarthritis of knee(Confirmed) Active Osteoporosis(Confirmed) Active Social History Social History Type Response Smoking Status Former smoker entered on: 09/06/14 Sex
--- OUTSIDE RECORDS SUMMARY | 2023-08-31 08:15 | XMS_ITS | Continuity of Care Document ---
Author Organization [facility] Address [address] [place] [address]- Care Team Providers Care Sports Teacher Name Role Phone Tray BROWN, Robert Anthony Primary Care Physician Encounter [facility] Date(s): 12/30/21 - 01/29/22 [facility] [address] [place] [address]- Allergies, Adverse Reactions, Alerts Substance Reaction Severity Status codeine Active tetanus toxoid Active sulfa drugs Active Immunizations Given and Recorded Vaccine Date Status Refusal Reason SARS-CoV-2 mRNA (xumcuxe-qtiz-pwjyn) vax 08/06/21 Recorded SARS-CoV-2 (COVID-19) mRNA BNT-162b2 [...] vaccine 9 06/20/12 Recorded 1Location History: [facility] 2Location History: [facility] 3Result Comment: [06/19/2016] [facility] 4Result Comment: [06/19/2016] [facility] 5Early/Late Reason: Other : 6Result Comment: [06/19/2016] [facility] 7Result Comment: [06/19/2016] [facility] 8Result Comment: [06/19/2016] [facility] 9Result Comment: [06/19/2016] [facility] Medications albuterol 0.083% inhalation solution 3 mL, Inhalation, Every 6 hours, USE ACAPELLA DEVICE AFTER EVERY TREATMENT., # 360 mL, 5 Refills, [facility] #[id number], 151, cm, 09/29/21 13:12:00 EDT, Height, 61.69, [...] Unknown, Refills 3, Route to Pharmacy Electronically, [facility], 151, cm, 09/29/21 13:12:00 EDT, Height, [...] mL, 1 Refills, Maintenance, 07/28/22 9:58:00 EDT, [facility] #48947, J47.0 bronchiectasis, 4 mL Neb 2 times... Start Date: 07/28/22 Status: Ordered Lasix 40 mg oral tablet 1, tablet, By Mouth, Daily, # 90 Unknown, Refills 3, Route to Pharmacy Electronically, [facility], 151, cm, 09/29/21 13:12:00 EDT, Height, 61.69, kg, 09/29/21 13:11:00 EDT, Dry Weight Start Date: 11/05/21 Status: Ordered losartan 25 mg oral tablet 12.5 mg, 0.5, tablet, By Mouth, Daily, Take 0.5 tablet (12.5mg) daily, # 45 tablet, Refills 3, Tot.Refills 3, Maintenance, 06/12/21 13:52:00 EST, Route to Pharmacy Electronically, [facility], 151, cm, 06/11/21 13:48:00 EST, [...] 10/17/21 15:25:00 EDT, Route to Pharmacy Electronically, [id number], [facility] #37571, 151, cm, 09/29/21 13:12:00 EDT, Hei... Start Date: 10/17/21 Status: Ordered Sodium Chloride, Inhalation 0.9% inhalation solution 4 mL = 0.036 Gm, Neb, 2 times a day, use with 0.5% albuterol solution together in nebulizer, # 240 mL, 6 Refills, Maintenance, 06/12/21 19:39:00 EST, [facility] #[id number], Partial fill upon patient request if the [...] chart review meeting GFR criteria 5Admission to [facility] for CHF 11/2020. Cardiac MRI: LVEF 44%; 12/16/20 echo at [facility]: LVEF=40-45% [id number] as lung mass. S/P R-CHOP x 6 cycles. Social History Social History Type Response Smoking Status Former smoker entered on: 09/06/14 Sex Patient Care team information Personnel Name: Tray BROWN, Robert Anthony Address: Address: [address] [place] [address]
--- OUTSIDE RECORDS SUMMARY | 2023-08-31 08:15 | XMS_ITS | Continuity of Care Document ---
Author Organization [facility] Address [address] [place] [address]- Care Team Providers Care Manager Lan Name Role Phone Tray BROWN, Robert Anthony Primary Care Physician Encounter [facility] Date(s): 02/10/23 - 03/12/23 [facility] [address] [place] [address]- Allergies, Adverse Reactions, Alerts Substance Reaction Severity Status codeine Active tetanus toxoid Active sulfa drugs Active Fish Active Immunizations Given and Recorded Vaccine Date Status Refusal Reason [id number] 12y+ bivalent booster vax 08/15/22 Recorded Influenza Virus Vaccine (oldterm) 1 02/03/22 Recor ded SARS-CoV-2 mRNA (wkkvxal-azpz-wdrcg) vax 08/06/21 Recorded SARS-CoV-2 (COVID-19) mRNA BNT-162b2 [...] 06/20/12 [facility]ica 1Result Comment: [facility] 2Location History: [facility] 3Location History: [facility] 4Result Comment: [06/19/2016] [facility] 5Result Comment: [06/19/2016] [facility] 6Early/Late Reason: Other : 7Result Comment: [06/19/2016] [facility] 8Result Comment: [06/19/2016] [facility] 9Result Comment: [06/19/2016] [facility] 10Result Comment: [06/19/2016] [facility] Medications albuterol 0.083% inhalation solution 3 mL, Inhalation, Every 6 hours, USE ACAPELLA DEVICE AFTER EVERY TREATMENT. J44.9, # 360 mL, 5 Refills, 01/18/23 8:59:00 EDT, [facility] #[id number], J44.9, 150, cm, 01/11/23 10:59:00 EDT, Height, 61, kg, 04/17/22 11:31:00 EST, Dry Weight Start Date: 01/18/23 Status: Ordered bisoprolol 5 mg oral tablet See Instructions, TAKE 1/2 TABLET DAILY, # 45 Unknown, 0 Refills, Maintenance, 02/22/23 7:49:00 EDT, [facility], 150, cm, 01/11/23 10:59:00 EDT, Height, 61, kg, 04/17/22 11:31:00 EST, Dry Weight Start Date: 02/22/23 Status: Ordered clopidogrel 75 mg oral tablet See Instructions, TAKE 1 TABLET DAILY, # 90 Unknown, Refills 0, Maintenance, 02/22/23 7:49:00 EDT, Instructions Replace Required Details, Route to Pharmacy Electronically, [facility], 150, cm, 01/11/23 10:59:00 EDT, Height, [...] 10/17/21 15:25:00 EDT, Route to Pharmacy Electronically, [id number], [facility] #[id number], 151, cm, 09/29/21 13:12:00 EDT, Hei... Start [...] mL, 5 Refills, Maintenance, 02/11/23 9:46:00 EDT, [facility] #[id number], USE 4 ML VIANEBULIZER TWICE DAILY USE [...] chart review meeting GFR criteria 6Admission to [facility] for CHF 11/2020. Cardiac MRI: LVEF 44%; 12/16/20 echo at [facility]: LVEF=40-45% 8Per CT w/contrast 12/19/2021: Irregular partially calcified tissue along the distal left main pulmonary artery extending along the regular small caliber left lower lobe pulmonary artery branch probably reflecting chronic thrombus.. [id number]-Ibhvyaolr as lung mass. S/P R-CHOP x 6 cycles. Social History Social History Type Response Smoking Status Former smoker entered on: 09/06/14 Sex Patient Care team information Care Team Personnel Name: Manuel Mayes MD Position: [facility] Physician - Pulm/Critical Care Member Role: Store Sales Consultant Address: Address: [address] [place] [address] [address] [place] [address]- Name: Kenneth Chowdary MD Position: [facility] Cardiology MD Member Role: Screw Driver Operator Address: Address: [address] [place] [address] [address] [place] [address]- [place] Name: Robert Feliz MD Position: [facility] Physician - Primary Care Member Role: PCP Address: Address: [address] [place] [address]- [place] Name: Georgette Silva Position: [facility] Business Services Director Member Role: High Voltage Electrician Name: Epi Turner Member Role: Neurologist Name: Mariposa BROWN, Zi Méndez Position: Reference Physician Member Role: Associate Director Regulatory Affairs Address: Address: [address] [place] [address] [address] [facility] [place] [address]- [place] Care Team Related Persons Name: RAMIRO MARR Address: home [address] [place] [address]
--- OUTSIDE RECORDS SUMMARY | 2023-08-31 08:15 | XMS_ITS | Continuity of Care Document ---
Author Organization [facility] Address [address] [place] [address]- Care Team Providers Care Canoe Maker Name Role Phone Tray BROWN, Robert R Primary Care Physician Encounter [facility] Date(s): 05/31/19 - 05/31/[address] [address] [facility] Attending Physician: Karrie Vincent Allergies, Adverse Reactions, Alerts Substance Reaction Severity [...] 10/03/18 15:01:00 EDT, Route to Pharmacy Electronically, [id number], [facility] [address], J47.9 Start Date: 10/03/18 Status: Ordered ProAir HFA 90 mcg/inh inhalation aerosol with adapter 2, puffs, Inhalation, 4 times a day, PRN, # 1 each, Refills 6, Tot. Refills 6, Maintenance, 05/17/19 14:49:00 EST, Route to Pharmacy Electronically, [id number], [facility] #[id number], 151, cm, 05/17/19 14:23:00 EST, Hei... Start Date: 05/17/19 Status: Ordered Spiriva Respimat 2.5 mcg/inh inhalation [...]
--- OUTSIDE RECORDS SUMMARY | 2023-08-31 08:15 | XMS_ITS | Continuity of Care Document ---
Author Organization [facility] Address [address] [place] [address]- Care Team Providers Care Block And Case Maker Name Role Phone Tray BROWN, Robert Anthony Primary Care Physician [phone] [place] [facility] Date(s): 01/01/22 - 01/31/22 [facility] [address] [place] [address]- Allergies, Adverse Reactions, Alerts Substance Reaction Severity Status codeine Active tetanus toxoid Active sulfa drugs Active Immunizations Given and Recorded Vaccine Date Status Refusal Reason SARS-CoV-2 mRNA (dronldb-plkr-taobw) vax 08/06/21 Recorded SARS-CoV-2 (COVID-19) mRNA BNT-162b2 [...] EVERY TREATMENT., # 360 mL, 5 Refills, [facility] #32258, 151, cm, 09/29/21 13:12:00 EDT, Height, 61.69, [...] Unknown, Refills 3, Route to Pharmacy Electronically, [facility], 151, cm, 09/29/21 13:12:00 EDT, Height, [...] mL, 1 Refills, Maintenance, 07/28/22 9:58:00 EDT, [facility] #59617, J47.0 bronchiectasis, 4 mL Neb 2 times... Start Date: 07/28/22 Status: Ordered Lasix 40 mg oral tablet 1, tablet, By Mouth, Daily, # 90 Unknown, Refills 3, Route to Pharmacy Electronically, [facility], 151, cm, 09/29/21 13:12:00 EDT, Height, 61.69, kg, 09/29/21 13:11:00 EDT, Dry Weight Start Date: 11/05/21 Status: Ordered losartan 25 mg oral tablet 12.5 mg, 0.5, tablet, By Mouth, Daily, Take 0.5 tablet (12.5mg) daily, # 45 tablet, Refills 3, Tot.Refills 3, Maintenance, 06/12/21 13:52:00 EST, Route to Pharmacy Electronically, [facility], 151, cm, 06/11/21 13:48:00 EST, Height [...] 10/17/21 15:25:00 EDT, Route to Pharmacy Electronically, [id number], [facility] #56895, 151, cm, 09/29/21 13:12:00 EDT, Hei... Start Date: 10/17/21 Status: Ordered Sodium Chloride, Inhalation 0.9% inhalation solution 4 mL = 0.036 Gm, Neb, 2 times a day, use with 0.5% albuterol solution together in nebulizer, # 240 mL, 6 Refills, Maintenance, 06/12/21 19:39:00 EST, [facility] #24114, Partial fill upon patient request if the [...] chart review meeting GFR criteria 5Admission to [facility] for CHF 11/2020. Cardiac MRI: LVEF 44%; 12/16/20 echo at [facility]: LVEF=40-45% [id number] as lung mass. S/P R-CHOP x 6 cycles. Social History Social History Type Response Smoking Status Former smoker entered on: 09/06/14 Sex Patient Care team information Personnel Name: Tray BROWN, Robert Anthony Address: Address: [address] [place] [address]
--- OUTSIDE RECORDS SUMMARY | 2023-08-31 08:15 | XMS_ITS | Continuity of Care Document ---
Author Organization [facility] Address [address] [place] [address]- Care Team Providers Care Scalloper Name Role Phone Tray BROWN, Robert Anthony Primary Care Physician [phone] Encounter [facility] Date(s): 03/28/21 - 04/27/21 [facility] [address] [place] [address]- [place] Allergies, Adverse Reactions, Alerts Substance Reaction [...] 3 Refills, Maintenance, 06/27/20 15:48:00 EST, Solution, [facility] #[id number], 151, cm, 02/05/20 7:35:00 EDT, Height Start Date: 06/27/20 Status: Ordered amoxicillin 500 mg oral capsule 4 capsule = 2,000 mg, By Mouth, Once, take 4 capsules prior to dental procedure, # 4 capsule, 0 Refills, Soft Stop, 08/15/20 16:35:00 EDT, [facility] #89356, 151, cm, 02/05/20 7:35:00 EDT, Height Start Date: 08/15/20 Status: Ordered clopidogrel 75 mg oral tablet See Instructions, TAKE 1 TABLET BY MOUTH DAILY, # 30 tablet, Refills 5, Tot. Refills 5, Instructions Replace Required Details, Route to Pharmacy Electronically, [facility] #65682, 151, cm, 03/07/21 9:27:00 EST, Height Start Date: 04/15/21 Status: Ordered Hyper-Don 7% inhalation solution 4 mL = 0.28 Gm, Neb, 2 times a day, take with 0.5ml = 2.5 mg albuterol (add hypersal 4ml to 0.5ml albuterol) twice a day, # 240 mL, 11 Refills, Maintenance, 08/07/20 9:58:00 EDT, [facility]#47890, J47.0 bronchiectasis, 4 mL Neb 2 times a da... Start Date: 08/07/20 Stop Date: 08/02/21 Status: Ordered Lasix 40 mg oral tablet 40 mg, 1, tablet, By Mouth, Daily, prescribed by [facility] doctor 12/18/20, # 30 tablet, Refills 5, Tot. Refills 5, Maintenance, 04/16/21 11:55:00 EST, Route to Pharmacy Electronically, [facility] #95771, Partial fill upon patient request if th... Start Date: 04/16/21 Status: Ordered losartan 25 mg oral tablet 12.5 mg, 0.5, tablet, By Mouth, Daily, Take 0.5 tablet (12.5mg) daily, # 15 tablet, Refills 11, Tot. Refills 11, Maintenance, 02/05/21 8:59:00 EDT, Route to Pharmacy Electronically, [facility] #70710, Partial fill upon patient request if the... Start Date: 02/05/21 Status: Ordered meloxicam 7.5 mg oral tablet 1 tablet, By Mouth, Daily, # 90 tablet, 0 Refills, [facility] #55068, 151, cm, 12/27/20 8:19:00 EDT, Height Start [...] 01/10/21 13:45:00 EDT, Route to Pharmacy Electronically, [facility] #31932, Partial fill upon patientrequest if the prescription is for a schedule II op... Start Date: 01/10/21 Status: Ordered ProAir HFA 90 mcg/inh inhalation aerosol with adapter 2, puffs, Inhalation, 4 times a day, PRN, # 1 each, Refills 6, Tot. Refills 6, Maintenance, 08/26/20 14:10:00 EDT, Route to Pharmacy Electronically, [id number], [facility] #79297, 151, cm, 08/26/20 13:26:00 EDT, Height Start Date: 08/26/20 Status: Ordered rosuvastatin 5 mg oral tablet 1 tablet = 5 mg, By Mouth, Daily, # 30 tablet, 5 Refills, Maintenance, 04/08/21 9:24:00 EST, Tablet, [facility] #76353, 151, cm, 03/07/21 9:27:00 EST, Height Start Date: 04/08/21 Stop Date: 10/05/21 Status: Ordered Trelegy Ellipta 200 mcg-62.5 mcg-25 mcg/inh inhalation powder 1 puffs, Inhalation, Daily, at the same time every day, # 1 each, 6 Refills, Maintenance, 12/06/20 9:31:00 EDT, Powder, [facility] #86306, Partial fill upon patient request if the [...]
--- OUTSIDE RECORDS SUMMARY | 2023-08-31 08:15 | XMS_ITS | Continuity of Care Document ---
Author Organization [facility]iky Zac lt Address [address] [place] [address]- Care Team Providers Care Retail Banking Manager Name Role Phone Tray BROWN, Robert Anthony Primary Care Physician [phone] Encounter [facility] Date(s): 06/16/23 - 07/16/23 [facility] Adult [address] [place] [address]- Attending Physician: Adithya Sheth Admitting Physician: AdmAdithya [...] virus vaccine, inactivated 6 02/09/12 Re corded [id number] 12y+ bivalent booster vax 08/15/22 Recorded Influenza Virus Vaccine (oldterm) 7 02/03/22 Recor ded SARS-CoV-2 mRNA (jdbzwnp-iecf-fheck) vax 08/06/21 Recorded SARS-CoV-2 (COVID-19) mRNA BNT-162b2 [...] Comment: [06/19/2016] [facility] 7Result Comment: influenza at [facility] 8Result Comment: [06/19/2016] riverbend 9Result Comment: [06/19/2016] riverbend 10Result Comment: [06/19/2016] [facility] Medications albuterol 0.083% inhalation solution 3 mL, Inhalation, Every 6 hours, USE ACAPELLA DEVICE AFTER EVERY TREATMENT. J44.9, # 360 mL, 5 Refills, 01/18/23 8:59:00 EDT, [facility] #[id number], J44.9, 150, cm, 01/11/23 10:59:00 EDT, Height, [...] 07/22/23 14:14:00 EDT, 06/23/23 14:14:00 EST, Tablet, [facility]/pharmacy #[id number], Partial fillupon patient request if the [...] 10/17/21 15:25:00 EDT, Route to Pharmacy Electronically, [id number], [facility] #[id number], 151, cm, 09/29/21 13:12:00 EDT, Hei... Start [...] mL, 5 Refills, Maintenance, 02/11/23 9:46:00 EDT, [facility] #[id number], USE 4 ML VIANEBULIZER TWICE DAILY USE WITH 0.5% TOGETHER IN VIA... Start Date: 02/11/23 Status: Ordered traMADol 50 mg oral tablet 1 tablet = 50 mg, By Mouth, Every 12 hours, PRN for pain, # 30 tablet, 5 Refills, Acute 01/06/24 10:48:00 EDT, 07/06/23 10:47:00 EDT, Tablet, [facility]/pharmacy #[id number], Partial fill upon patient request if [...] chart review meeting GFR criteria 6Admission to [facility] for CHF 11/2020. Cardiac MRI: LVEF 44%; 12/16/20 echo at [facility]: LVEF=40-45% 8Per CT w/contrast 12/19/2021: Irregular partially calcified tissue along the distal left main pulmonary artery extending along the regular small caliber left lower lobe pulmonary artery branch probably reflecting chronic thrombus.. [id number] as lung mass. S/P R-CHOP x 6 [...] Event Display: Laboratory Result Scanned Authored Date: Radiology * Event Display: Bone Density Authored Date: * Event Display: CT Scan Head, Non- BH Authored Date: MG Breast Views * Event Display: MM Mammogram Authored Date: * Event Display: MM Mammogram Authored Date: * Event Display: MM Mammogram Authored Date: Patient Care team information Care Team Personnel Name: Manuel Mayes MD Position: [facility] Physician - Pulm/Critical Care Member Role: Optimization Engineer Address: Address: [address] [place] [address] [address] [facility] [place] [address]- [place] Name: Kenneth Chowdary MD Position: [facility] Cardiology MD Member Role: Fixing Machine Operator Address: Address: [address] [place] [address] [address] [place], [place] - [place] Name: Robert Feliz MD Position: [facility] Physician - Primary Care Member Role: PCP Address: Address: [address] [place] [address]- [place] Name: Georgette Silva Position: [facility] Research Test Engine Evaluator Member Role: Elevator Inspector Name: Epi Turner Member Role: Neurologist Name: Mariposa BROWN, Zi Méndez Position: Reference Physician Member Role: Intellectual Property Paralegal Address: Address: [address] [place] [address] [address] [facility] [place] [address]- [place] Care Team Related Persons Name: RAMIRO MARR Address: home [address] [place] [id number]
--- OUTSIDE RECORDS SUMMARY | 2023-08-31 08:15 | XMS_ITS | Continuity of Care Document ---
Author Organization [facility] Zac lt Address [address] [place] [address]- Care Team Providers Care Crab Picker Name Role Phone Robert Feliz MD Primary Care Physician Encounter [facility] Date(s): 11/14/21 - 11/21/21 [facility] Adult [address] [place] [address]- Attending Physician: Robert Feliz MD Allergies, Adverse Reactions, Alerts Substance Reaction Severity Status codeine Active tetanus toxoid Active sulfa drugs Active Immunizations Given and Recorded Vaccine Date Status Refusal Reason SARS-CoV-2 mRNA (bjweqoa-tygf-cmpgb) vax 08/06/21 Recorded SARS-CoV-2 (COVID-19) mRNA BNT-162b2 [...] EVERY TREATMENT., # 360 mL, 5 Refills, [facility] #[id number], 151, cm, 09/29/21 13:12:00 EDT, Height, 61.69, kg, 09/29/21 13:11:00 EDT, Dry Weight Start Date: 11/13/21 Status: Ordered albuterol 0.083% inhalation solution 3 mL, Inhalation, Every 6 hours, USE ACAPELLA DEVICE AFTER EVERY TREATMENT., # 360 mL, 0 Refills, [facility] #[id number], 151, cm, 06/11/21 13:48:00 EST, Height Start Date: 08/18/21 Status: Ordered albuterol 5 mg/mL (0.5%) inhalation solution 0.5 mL = 2.5 mg, Inhalation, Every 6 hours, PRN for wheezing, # 20 mL, 11 Refills, Maintenance, 08/26/21 14:10:00 EDT, Solution, [facility] #[id number], Partial fill upon patient request if the prescription is for a schedule II opioid drug., 151,... Start Date: 08/26/21 Status: Ordered amoxicillin 500 mg oral capsule 4 capsule = 2,000 mg, By Mouth, Once, take 4 capsules prior to dental procedure, # 4 capsule, 5 Refills, Soft Stop, 05/06/21 17:27:00 EST, [facility] #[id number], 151, cm, 05/05/21 12:08:00 EST,Height Start Date: [...] Unknown, Refills 3, Route to Pharmacy Electronically, [facility], 151, cm, 09/29/21 13:12:00 EDT, Height, 61.69, kg, 09/29/21 13:11:00 EDT, Dry Weight Start Date: 11/05/21 Status: Ordered Hyper-Don 7% inhalation solution 4 mL = 0.28 Gm, Neb, 2 times a day, take with 0.5ml = 2.5 mg albuterol (add hypersal 4ml to 0.5ml albuterol) twice a day J47.0, # 720 mL, 1 Refills, Maintenance, 07/28/22 9:58:00 EDT, [facility] #[id number], J47.0 bronchiectasis, 4 mL Neb 2 times... Start Date: 07/28/22 Status: Ordered Hyper-Don 7% inhalation solution 4 mL = 0.28 Gm, Neb, 2 times a day, take with 0.5ml = 2.5 mg albuterol (add hypersal 4ml to 0.5ml albuterol) twice a day, # 720 mL, 1 Refills, Hard Stop 07/28/22 9:58:00 EDT, 08/02/21 9:58:00 EDT, [facility], J47.0 bronchiectasis, 151, cm,... Start [...] Unknown, Refills 3, Route to Pharmacy Electronically, [facility], 151, cm, 09/29/21 13:12:00 EDT, Height, 61.69, kg, 09/29/21 13:11:00 EDT, Dry Weight Start Date: 11/05/21 Status: Ordered losartan 25 mg oral tablet 12.5 mg, 0.5, tablet, By Mouth, Daily, Take 0.5 tablet (12.5mg) daily, # 45 tablet, Refills 3, Tot.Refills 3, Maintenance, 06/12/21 13:52:00 EST, Route to Pharmacy Electronically, [facility], 151, cm, 06/11/21 13:48:00 EST, Height [...] 10/17/21 15:25:00 EDT, Route to Pharmacy Electronically, [id number], [facility] #[id number], 151, cm, 09/29/21 13:12:00 EDT, Hei... Start Date: 10/17/21 Status: Ordered Sodium Chloride, Inhalation 0.9% inhalation solution 4 mL = 0.036 Gm, Neb, 2 times a day, use with 0.5% albuterol solution together in nebulizer, # 240 mL, 6 Refills, Maintenance, 06/12/21 19:39:00 EST, [facility] #[id number], Partial fill upon patient request if the [...] 1-49% stenosis; LICA 1-49% stenosis 4Admission to [facility] [place] 11/2020. Cardiac MRI: LVEF 44%; 12/16/20 echo at [facility]: LVEF=40-45% [id number] as lung mass. S/P R-CHOP x 6 cycles. Vital Signs Most recent to oldest [Reference Range]: 1 Height 151 cm (11/14/21 11:25 AM) Weight 60.3 kg (11/14/21 11:25 AM) Oxygen Saturation [94-100 %] 98 % (11/14/21 11:25 AM) Pulse Rate [55-90 bpm] 66 bpm (11/14/21 11:25 AM) Body Mass Index [18.5-24.99] 26.45 *H* (11/14/21 11:25 AM) Blood Pressure [90-138/55-84 mm Hg] 129/ 77mm Hg (11/14/21 11:25 AM) Mode of Delivery (Oxygen) Room air (11/14/21 11:25 AM) Blood pressure sites Arm, left (11/14/21 11:25 AM) Weight Obtained Via Standing scale (11/14/21 11:25 AM) Social History Social History Type Response Smoking Status Former smoker entered on: 09/06/14 Sex
--- OUTSIDE RECORDS SUMMARY | 2023-08-31 08:15 | XMS_ITS | Continuity of Care Document ---
Author Organization [facility] Address [address] [place] [address]- Care Team Providers Care Tax Accounting Manager Name Role Phone Tray BROWN, Robert Anthony Primary Care Physician [phone] Encounter [facility] Date(s): 02/28/21 - 03/30/[address] [address] Attending Physician: Adithya Sheth Admitting Physician: AdmAdithya de la torre Referring Physician: Admtr, Ar8 Allergies, Adverse Reactions, [...] 3 Refills, Maintenance, 06/27/20 15:48:00 EST, Solution, [facility] #[id number], 151, cm, 02/05/20 7:35:00 EDT, Height Start Date: 06/27/20 Status: Ordered amoxicillin 500 mg oral capsule 4 capsule = 2,000 mg, By Mouth, Once, take 4 capsules prior to dental procedure, # 4 capsule, 0 Refills, Soft Stop, 08/15/20 16:35:00 EDT, [facility] #[id number], 151, cm, 02/05/20 7:35:00 EDT, Height Start Date: 08/15/20 Status: Ordered Hyper-Don 7% inhalation solution 4 mL = 0.28 Gm, Neb, 2 times a day, take with 0.5ml = 2.5 mg albuterol (add hypersal 4ml to 0.5ml albuterol) twice a day, # 240 mL, 11 Refills, Maintenance, 08/07/20 9:58:00 EDT, [facility]#81900, J47.0 bronchiectasis, 4 mL Neb 2 times a da... Start Date: 08/07/20 Stop Date: 08/02/21 Status: Ordered Lasix 40 mg oral tablet 40 mg, 1, tablet, By Mouth, Daily, prescribed by [facility] doctor 12/18/20, # 30 tablet, Refills 2, Tot. Refills 2, Maintenance, 01/10/21 13:42:00 EDT, Route to Pharmacy Electronically, [facility] #[id number], Partial fill upon patient request if th... Start Date: 01/10/21 Status: Ordered losartan 25 mg oral tablet 12.5 mg, 0.5, tablet, By Mouth, Daily, Take 0.5 tablet (12.5mg) daily, # 15 tablet, Refills 11, Tot. Refills 11, Maintenance, 02/05/21 8:59:00 EDT, Route to Pharmacy Electronically, [facility] #[id number], Partial fill upon patient request if the... Start Date: 02/05/21 Status: Ordered meloxicam 7.5 mg oral tablet 1 tablet, By Mouth, Daily, # 90 tablet, 0 Refills, [facility] #09115, 151, cm, 12/27/20 8:19:00 EDT, Height Start [...] 01/10/21 13:45:00 EDT, Route to Pharmacy Electronically, [facility] #[id number], Partial fill upon patientrequest if the prescription is for a schedule II op... Start Date: 01/10/21 Status: Ordered ProAir HFA 90 mcg/inh inhalation aerosol with adapter 2, puffs, Inhalation, 4 times a day, PRN, # 1 each, Refills 6, Tot. Refills 6, Maintenance, 08/26/20 14:10:00 EDT, Route to Pharmacy Electronically, [id number], [facility] #[id number], 151, cm, 08/26/20 13:26:00 EDT, Height Start Date: 08/26/20 Status: Ordered rosuvastatin 5 mg oral capsule 1 capsule = 5 mg, By Mouth, Daily, # 30 capsule, 6 Refills, Maintenance, 03/28/21 16:12:00 EST, Capsule, [facility] #46074, Partial fill upon patient request if the prescription is for a schedule II opioid drug., 151, cm, 03/07/21 9:27:00 ES... Start Date: 03/28/21 Status: Ordered Trelegy Ellipta 200 mcg-62.5 mcg-25 mcg/inh inhalation powder 1 puffs, Inhalation, Daily, at the same time every day, # 1 each, 6 Refills, Maintenance, 12/06/20 9:31:00 EDT, Powder, [facility] #59753, Partial fill upon patient request if the [...]
--- OUTSIDE RECORDS SUMMARY | 2023-08-31 08:15 | XMS_ITS | Continuity of Care Document ---
Author Organization [facility] Address [address] [place] [address]- Care Team Providers Care Ent Consultant Name Role Phone Tray BROWN, Robert Anthony Primary Care Physician [phone] Encounter [facility] Date(s): 06/18/20 - 07/18/20 [facility] [address] [place] [address]- Allergies, Adverse Reactions, Alerts Substance Reaction Severity [...] 3Result Comment: [06/19/2016] JANET 4Result Comment: [06/19/2016] gaylebend 5Early/Late Reason: Other : 6Result Comment: [06/19/2016] [facility] 7Result Comment: [06/19/2016] gaylebekaila 8Result Comment: [06/19/2016] gaylebend 9Result Comment: [06/19/2016] [facility] Medications albuterol 0.083% inhalation solution 3 mL = 2.5 mg, Inhalation, Every 6 hours, use Acapella device after every treatment, # 120 each, 3 Refills, Maintenance, 06/27/20 15:48:00 EST, Solution, [facility] #[id number], 151, cm, 02/05/20 7:35:00 EDT, Height Start Date: 06/27/20 Status: Ordered amoxicillin 500 mg oral capsule 4 capsule = 2,000 mg, By Mouth, Once, take 4 capsules prior to dental procedure, # 4 capsule, 0 Refills, Soft Stop, 12/27/19 12:56:00 EDT, [facility] #[id number], 151, cm, 11/22/19 11:48:00 EDT,Height, 65.4, kg, 05/02/18 11:04:00 EST, Dry Weight Start Date: 12/27/19 Status: Ordered aspirin 81 mg oral tablet, chewable 81 mg, 1, tablet, By Mouth, Daily, # 90 tablet, Refills 3, Tot. Refills 3, Maintenance, 02/05/20 7:58:00 EDT, Route to Pharmacy Electronically, [facility] #[id number], 151, cm, 02/05/20 7:35:00 EDT, Height, 65.4, kg, 05/02/18 11:04:00 EST, Dry We... Start Date: 02/05/20 Status: Ordered meloxicam 7.5 mg oral tablet 1 tablet, By Mouth, Daily, # 90 tablet, 0 Refills, Maintenance, 07/01/20 12:15:00 EST, [facility] #[id number], 151, cm, 02/05/20 7:35:00 EDT, Height Start [...] 05/17/19 14:49:00 EST, Route to Pharmacy Electronically, [id number], [facility] #[id number], 151, cm, 05/17/19 14:23:00 EST, Hei... Start [...] 05/07/20 13:57:00 EST, Route to Pharmacy Electronically, [facility] #08686, 151, cm, 02/05/20 7:35:00 EDT, Height Start [...]
--- OUTSIDE RECORDS SUMMARY | 2023-08-31 08:15 | XMS_ITS | Continuity of Care Document ---
Author Organization [facility] Zac lt Address [address] [place] [address]- Care Team Providers Care Legal Transcriptionist Name Role Phone Tray BROWN, Robert Anthony Primary Care Physician Encounter [facility] Date(s): 05/22/21 - 06/21/21 [facility] Adult [address] [place] [address]- Allergies, Adverse Reactions, Alerts Substance Reaction Severity [...] vaccine 9 06/20/12 Recorded 1Location History: [facility] 2Location History: [facility] 3Result Comment: [06/19/2016] [facility] 4Result Comment: [06/19/2016] [facility] 5Early/Late Reason: Other : 6Result Comment: [06/19/2016] [facility] 7Result Comment: [06/19/2016] river[facility]end 8Result Comment: [06/19/2016] [facility]end 9Result Comment: [06/19/2016] [facility] Medications albuterol 0.083% inhalation solution 3 mL = 2.5 mg, Inhalation, Every 6 hours, use Acapella device after every treatment, # 120 each, 3 Refills, Maintenance, 06/27/20 15:48:00 EST, Solution, [facility] #[id number], 151, cm, 02/05/20 7:35:00 EDT, Height Start [...] 5 Refills, Soft Stop, 05/06/21 17:27:00 EST, [facility] #[id number], 151, cm, 05/05/21 12:08:00 EST,Height Start Date: [...] Stop 08/02/21 9:58:00 EDT, 08/07/20 9:58:00 EDT, [facility] #[id number], J47.0 [facility]... Start Date: 08/07/20 Stop Date: 08/02/21 Status: Ordered Hyper-Don 7% inhalation solution 4 mL = 0.28 Gm, Neb, 2 times a day, take with 0.5ml = 2.5 mg albuterol (add hypersal 4ml to 0.5ml albuterol) twice a day, # 720 mL, 1 Refills, Maintenance, 08/02/21 9:58:00 EDT, [facility], J47.0 bronchiectasis, 4 mL [...] Mouth, Daily, prescribed by [facility] doctor 12/18/20, [...] Mouth, Daily, # 90 tablet, 0 Refills, [facility] #[id number], 151, cm, 12/27/20 8:19:00 EDT, Height Start [...] 01/10/21 13:45:00 EDT, Route to Pharmacy Electronically, [facility] #[id number], Partial fill upon patientrequest if the prescription is for a schedule II op... Start Date: 01/10/21 Status: Ordered ProAir HFA 90 mcg/inh inhalation aerosol with adapter 2, puffs, Inhalation, 4 times a day, PRN, # 1 each, Refills 6, Tot. Refills 6, Maintenance, 08/26/20 14:10:00 EDT, Route to Pharmacy Electronically, [id number], [facility] #[id number], 151, cm, 08/26/20 13:26:00 EDT, Height Start Date: 08/26/20 Status: Ordered rosuvastatin 5 mg oral tablet 1 tablet = 5 mg, By Mouth, Daily, # 30 tablet, 5 Refills, Maintenance, 04/08/21 9:24:00 EST, Tablet, [facility] #60713, 151, cm, 03/07/21 9:27:00 EST, Height Start Date: 04/08/21 Stop Date: 10/05/21 Status: Ordered Sodium Chloride, Inhalation 0.9% inhalation solution 4 mL = 0.036 Gm, Neb, 2 times a day, use with 0.5% albuterol solution together in nebulizer, # 240 mL, 6 Refills, Maintenance, 06/12/21 19:39:00 EST, [facility] #[id number], Partial fill upon patient request if the [...] Stop07/04/21 9:31:00 EST, 12/06/20 9:31:00 EDT, Powder, [facility] #[id number], Partial fill upon patient request if the [...]
--- OUTSIDE RECORDS SUMMARY | 2023-08-31 08:15 | XMS_ITS | Continuity of Care Document ---
Author Organization [facility] Zac lt Address [address] [place] [address]- Care Team Providers Care Is/It Project Manager Name Role Phone Tray BROWN, Robert Anthony Primary Care Physician Encounter [facility] Date(s): 09/04/22 - 10/04/22 [facility] Adult [address] [place] [address]- Allergies, Adverse Reactions, Alerts Substance Reaction Severity Status codeine Active tetanus toxoid Active sulfa drugs Active Fish Active Immunizations Given and Recorded Vaccine Date Status Refusal Reason [id number] 12y+ bivalent booster vax 08/15/22 Recorded Influenza Virus Vaccine (oldterm) 1 02/03/22 Recor ded SARS-CoV-2 mRNA (xldipik-xlgs-wwzfj) vax 08/06/21 Recorded SARS-CoV-2 (COVID-19) mRNA BNT-162b2 [...] Recorded pneumococcal 23-valent vaccine 10 06/20/12 [facility] 1Result Comment: influenza at [facility] 2Location History: [facility] 3Location History: [facility] 4Result Comment: [06/19/2016] [facility] 5Result Comment: [06/19/2016] riverbend 6Early/Late Reason: Other : 7Result Comment: [06/19/2016] [facility] 8Result Comment: [06/19/2016] riverbend 9Result Comment: [06/19/2016] [facility]end 10Result Comment: [06/19/2016] [facility] Medications albuterol 0.083% inhalation solution 3 mL, Inhalation, Every 6 hours, USE ACAPELLA DEVICE AFTER EVERY TREATMENT., # 360 mL, 5 Refills, [facility] #[id number], 151, cm, 09/29/21 13:12:00 EDT, Height, 61.69, kg, 09/29/21 13:11:00 EDT, Dry Weight Start Date: 11/13/21 Status: Ordered bisoprolol 5 mg oral tablet See Instructions, TAKE 1/2 TABLET DAILY, # 45 tablet, 1 Refills, Maintenance, 09/04/22 16:11:00 EDT, [facility], 150, cm, 08/28/22 9:37:00 EDT, Height, 61, kg, 04/17/22 11:31:00 EST, Dry Weight Start Date: 09/04/22 Status: Ordered clopidogrel 75 mg oral tablet 1, tablet, By Mouth, Daily, # 90 Unknown, Refills 0, Maintenance, 09/01/22 10:17:00 EDT, Route to Pharmacy Electronically, [facility], 150, cm, 08/28/22 9:37:00 EDT, Height, 61, kg, 04/17/22 11:31:00 EST, Dry Weight Start Date: 09/01/22 Status: Ordered Diazepam = 1 mg, By Mouth, PRN for dizziness, 0 Refills, Maintenance, 05/13/22 13:24:00 EST, Partial fill upon patient request if the prescription is for a schedule II opioid drug. Start Date: 05/13/22 Status: Ordered Lasix 40 mg oral tablet 1, tablet, By Mouth, Daily, # 90 Unknown, Refills 3, Route to Pharmacy Electronically, [facility], 151, cm, 09/29/21 13:12:00 EDT, Height, 61.69, kg, 09/29/21 13:11:00 EDT, Dry Weight Start Date: 11/05/21 Status: Ordered losartan 25 mg oral tablet See Instructions, TAKE 1/2 TABLET DAILY, # 45 tablet, 1 Refills, Maintenance, 09/04/22 16:13:00 EDT, [facility], 150, cm, 08/28/22 9:37:00 EDT, Height, 61, kg, 04/17/22 11:31:00 EST, Dry Weight Start Date: 09/04/22 Status: Ordered meclizine 25 mg oral tablet [...] 10/17/21 15:25:00 EDT, Route to Pharmacy Electronically, [id number], [facility] #[id number], 151, cm, 09/29/21 13:12:00 EDT, Hei... Start Date: 10/17/21 Status: Ordered Sodium Chloride, Inhalation 0.9% inhalation solution See Instructions, USE 4 ML VIA NEBULIZER TWICE DAILY USE WITH 0.5% VIA INHALER SOLUTION TOGETHER INVIA NEBULIZER, # 300 mL, 0 Refills, Maintenance, 04/28/22 9:38:00 EST, [facility] #[id number],25, USE 4 ML VIA NEBULIZER TWICE DAILY [...] meeting GFR criteria 6[place] [facility] [place]. Cardiac MRI: LVEF 44%; 12/16/20 [place] [facility] LVEF=40-45% 8Per CT w/contrast 12/19/2021: Irregular partially calcified tissue along the distal left main pulmonary artery extending along the regular small caliber left lower lobe pulmonary artery branch probably reflecting chronic thrombus.. [id number]-Nnleuacrs as lung mass. S/P R-CHOP x 6 cycles. Social History Social History Type Response Smoking Status Former smoker entered on: 09/06/14 Sex Patient Care team information Care Team Personnel Name: Francoise Black RN Position: [facility] RN Member Role: Primary Care Nurse Name: Chiqui Stoll RN Position: [facility] RN Member Role: Primary Care Nurse Name: Tray BROWN, Robert Anthony Position: [facility] Physician - Primary Care Member Role: PCP Address: Address: [address] [place] [address]- Care Team Related Persons Name: PARENTRAMIRO Address: home [address] [place] [id number]
--- OUTSIDE RECORDS SUMMARY | 2023-08-31 08:16 | XMS_ITS | Continuity of Care Document ---
Author Organization [facility] Address [address] [place] [address]- Care Team Providers Care Brick Loader Name Role Phone Tray BROWN, Robert Anthony Primary Care Physician [phone] Encounter [facility] Date(s): 12/18/21 - 01/17/22 [facility] [address] [facility] [address] [place] [address]- Allergies, Adverse Reactions, Alerts Substance Reaction Severity Status codeine Active tetanus toxoid Active sulfa drugs Active Immunizations Given and Recorded Vaccine Date Status Refusal Reason SARS-CoV-2 mRNA (pxddfsy-dyhg-btarj) vax 08/06/21 Recorded SARS-CoV-2 (COVID-19) mRNA BNT-162b2 [...] vaccine 9 06/20/12 Recorded 1Location History: [facility] 2Location History: [facility] 3Result Comment: [06/19/2016] [facility] 4Result Comment: [06/19/2016] [facility] 5Early/Late Reason: Other : 6Result Comment: [06/19/2016] [facility] 7Result Comment: [06/19/2016] [facility] 8Result Comment: [06/19/2016] [facility] 9Result Comment: [06/19/2016] [facility] Medications albuterol 0.083% inhalation solution 3 mL, Inhalation, Every 6 hours, USE ACAPELLA DEVICE AFTER EVERY TREATMENT., # 360 mL, 5 Refills, [email or web address][id number], 151, cm, 09/29/21 13:12:00 EDT, Height, 61.69, [...] Unknown, Refills 3, Route to Pharmacy Electronically, [facility], 151, cm, 09/29/21 13:12:00 EDT, Height, 61.69, kg, 09/29/21 13:11:00 EDT, Dry Weight Start Date: 11/05/21 Status: Ordered Hyper-Don 7% inhalation solution 4 mL = 0.28 Gm, Neb, 2 times a day, take with 0.5ml = 2.5 mg albuterol (add hypersal 4ml to 0.5ml albuterol) twice a day J47.0, # 720 mL, 1 Refills, Maintenance, 07/28/22 9:58:00 EDT, [facility] #[id number], J47.0 bronchiectasis, 4 mL Neb 2 times... Start Date: 07/28/22 Status: Ordered Lasix 40 mg oral tablet 1, tablet, By Mouth, Daily, # 90 Unknown, Refills 3, [facility] to [email or web address], 151, cm, 09/29/21 13:12:00 EDT, Height, 61.69, kg, 09/29/21 13:11:00 EDT, Dry Weight Start Date: 11/05/21 Status: Ordered losartan 25 mg oral tablet 12.5 mg, 0.5, tablet, By Mouth, Daily, Take 0.5 tablet (12.5mg) daily, # 45 tablet, Refills 3, Tot.Refills 3, Maintenance, 06/12/21 13:52:00 EST, Route to Pharmacy Electronically, [facility], 151, cm, 06/11/21 13:48:00 EST, Height [...] 10/17/21 15:25:00 EDT, Route to Pharmacy Electronically, [id number], [facility] #[id number], 151, cm, 09/29/21 13:12:00 EDT, Hei... Start Date: 10/17/21 Status: Ordered Sodium Chloride, Inhalation 0.9% inhalation solution 4 mL = 0.036 Gm, Neb, 2 times a day, use with 0.5% albuterol solution together in nebulizer, # 240 mL, 6 Refills, Maintenance, 06/12/21 19:39:00 EST, [facility] #[id number], Partial fill upon patient request if the [...] 1-49% stenosis; LICA 1-49% stenosis 4Admission to [facility] for CHF 11/2020. Cardiac MRI: LVEF 44%; 12/16/20 echo at [facility]: LVEF=40-45% [id number] as lung mass. S/P R-CHOP x 6 cycles. Social History Social History Type Response Smoking Status Former smoker entered on: 09/06/14 Sex Care Team Personnel Name: Robert Feliz MD Address: [address] [place] [address] [place] [address]-
--- OUTSIDE RECORDS SUMMARY | 2023-08-31 08:16 | XMS_ITS | Continuity of Care Document ---
Author Organization [facility] Address [address] [address]- Care Team Providers Care Partnership Development Manager Name Role Phone Tray BROWN, Robert Anthony Primary Care Physician Encounter [facility] Date(s): 10/18/19 - 11/17/19 [facility] [address] [address] Attending Physician: Admtr, Adithya Admitting Physician: AdmtrAdithya Referring Physician: Admtr, Ar8 [...] 1 Refills, Maintenance, 06/01/19 12:03:00 EST, Tablet, [facility] #[id number], 151, cm, 05/23/19 11:27:00 EST, Height, 65.4, [...] 10/03/18 15:01:00 EDT, Route to Pharmacy Electronically, [id number], [facility]136, J47.9 Start Date: 10/03/18 Status: Ordered ProAir HFA 90 mcg/inh inhalation aerosol with adapter 2, puffs, Inhalation, 4 times a day, PRN, # 1 each, Refills 6, Tot. Refills 6, Maintenance, 05/17/19 14:49:00 EST, Route to Pharmacy Electronically, [id number], [facility] #[id number], 151, cm, 05/17/19 14:23:00 EST, Hei... Start [...]
--- OUTSIDE RECORDS SUMMARY | 2023-08-31 08:16 | XMS_ITS | Continuity of Care Document ---
Author Organization [facility] Address [address] [place] [address]- Care Team Providers Care Pole Classifier Name Role Phone Tray BROWN, Robert Anthony Primary Care Physician Encounter [facility] Date(s): 10/07/22 - 11/06/22 [facility] [address] [place] [address]- Allergies, Adverse Reactions, Alerts Substance Reaction Severity Status codeine Active tetanus toxoid Active sulfa drugs Active Fish Active Immunizations Given and Recorded Vaccine Date Status Refusal Reason [id number] 12y+ bivalent booster vax 08/15/22 Recorded Influenza Virus Vaccine (oldterm) 1 02/03/22 Recor ded SARS-CoV-2 mRNA (syostuq-gubs-ojwyb) vax 08/06/21 Recorded SARS-CoV-2 (COVID-19) mRNA BNT-162b2 [...] 06/20/12 Recorde d 1Result Comment: influenza at [facility] 2Location History: [facility] 4Result Comment: [06/19/2016] [facility] 5Result Comment: [06/19/2016] [facility] 6Early/Late Reason: Other : 7Result Comment: [06/19/2016] [facility] 8Result Comment: [06/19/2016] [facility] 9Result Comment: [06/19/2016] [facility] 10Result Comment: [06/19/2016] [facility] Medications albuterol 0.083% inhalation solution 3 mL, Inhalation, Every 6 hours, USE ACAPELLA DEVICE AFTER EVERY TREATMENT., # 360 mL, 5 Refills, [facility] #[id number], 151, cm, 09/29/21 13:12:00 EDT, Height, 61.69, kg, 09/29/21 13:11:00 EDT, Dry Weight Start Date: 11/13/21 Status: Ordered bisoprolol 5 mg oral tablet See Instructions, TAKE 1/2 TABLET DAILY, # 45 tablet, 1 Refills, Maintenance, 09/04/22 16:11:00 EDT, [facility], 150, cm, 08/28/22 9:37:00 EDT, Height, 61, kg, 04/17/22 11:31:00 EST, Dry Weight Start Date: 09/04/22 Status: Ordered clopidogrel 75 mg oral tablet 1, tablet, By Mouth, Daily, # 90 Unknown, Refills 0, Tot. Refills 0, Maintenance, 10/19/22 15:23:00EDT, Route to Pharmacy Electronically, [facility], 150, cm, 08/28/22 9:37:00 EDT, Height, 61, kg, 04/17/22 11:31:00 EST, Dry Weight Start Date: 10/19/22 Status: Ordered Diazepam = 1 mg, By Mouth, PRN for dizziness, 0 Refills, Maintenance, 05/13/22 13:24:00 EST, Partial fill upon patient request if the prescription is for a schedule II opioid drug. Start Date: 05/13/22 Status: Ordered Lasix 40 mg oral tablet 1, tablet, By Mouth, Daily, # 90 Unknown, Refills 3, Route to Pharmacy Electronically, [email or web address], 151, cm, 09/29/21 13:12:00 EDT, Height, 61.69, kg, 09/29/21 13:11:00 EDT, Dry Weight Start Date: 11/05/21 Status: Ordered losartan 25 mg oral tablet See Instructions, TAKE 1/2 TABLET DAILY, # 45 tablet, 1 Refills, Maintenance, 09/04/22 16:13:00 EDT, [facility], 150, cm, 08/28/22 9:37:00 EDT, [...] 10/17/21 15:25:00 EDT, Route to Pharmacy Electronically, [id number], [facility] #[id number], 151, cm, 09/29/21 13:12:00 EDT, Hei... Start Date: 10/17/21 Status: Ordered Sodium Chloride, Inhalation 0.9% inhalation solution See Instructions, USE 4 ML VIA NEBULIZER TWICE DAILY USE WITH 0.5% VIA INHALER SOLUTION TOGETHER INVIA NEBULIZER, # 300 mL, 0 Refills, Maintenance, 04/28/22 9:38:00 EST, [facility] #[id number],25, USE 4 ML VIA NEBULIZER TWICE DAILY USE WITH 0.5... Start Date: 04/28/22 Status: Ordered Trelegy Ellipta 200 mcg-62.5 mcg-25 mcg/inh inhalation powder 1 puffs, Inhalation, Daily, at the same time every day, j44.9, # 1 each, 6 Refills, Maintenance, 10/14/22 11:12:00 EDT, Powder, [facility] #91039, Partial fill upon patient request if the [...] pulmonary artery branch probably reflecting chronic thrombus.. [id number]-[id number] as lung mass. S/P R-CHOP x 6 cycles. Social History Social History Type Response Smoking Status Former smoker entered on: 09/06/14 Sex Patient Care team information Care Team Personnel Name: Francoise Black RN Position: [facility] RN Member Role: Primary Care Nurse Name: Chiqui Stoll RN Position: [facility] RN Member Role: Primary Care Nurse Name: Robert Feliz MD Position: [facility] Physician - Primary Care Member Role: PCP Address: Address: [address] [place] [address]- Care Team Related Persons Name: PARENTRAMIRO Address: home [address] [place] [address]
--- OUTSIDE RECORDS SUMMARY | 2023-08-31 08:16 | XMS_ITS | Continuity of Care Document ---
Author Organization [facility] [place] [address] [address]- Care Team Providers Care Mathematical Statistician Name Role Phone Robert Feliz MD Primary Care Physician [phone] Encounter [facility] Date(s): 12/09/20 - 02/01/21 [facility] [address] [address]- Attending Physician: Karrie Vincent Admitting Physician: Karrie Vincent Referring Physician: Robert Feliz MD Allergies, Adverse [...] 3 Refills, Maintenance, 06/27/20 15:48:00 EST, Solution, [facility] #46539, 151, cm, 02/05/20 7:35:00 EDT, Height Start Date: 06/27/20 Status: Ordered amoxicillin 500 mg oral capsule 4 capsule = 2,000 mg, By Mouth, Once, take 4 capsules prior to dental procedure, # 4 capsule, 0 Refills, Soft Stop, 08/15/20 16:35:00 EDT, [facility] #73059, 151, cm, 02/05/20 7:35:00 EDT, Height Start Date: 08/15/20 Status: Ordered Hyper-Don 7% inhalation solution 4 mL = 0.28 Gm, Neb, 2 times a day, take with 0.5ml = 2.5 mg albuterol (add hypersal 4ml to 0.5ml albuterol) twice a day, # 240 mL, 11 Refills, Maintenance, 08/07/20 9:58:00 EDT, [facility]#49794, J47.0 bronchiectasis, 4 mL Neb 2 times a da... Start Date: 08/07/20 Stop Date: 08/02/21 Status: Ordered Lasix 40 mg oral tablet 40 mg, 1, tablet, By Mouth, Daily, prescribed by [facility] doctor 12/18/20, # 30 tablet, Refills 2, Tot. Refills 2, Maintenance, 01/10/21 13:42:00 EDT, Route to Pharmacy Electronically, [facility] #[id number], Partial fill upon patient request if th... Start Date: 01/10/21 Status: Ordered meloxicam 7.5 mg oral tablet 1 tablet, By Mouth, Daily, # 90 tablet, 0 Refills, [facility] #43915, 151, cm, 12/27/20 8:19:00 EDT, Height Start [...] 01/10/21 13:45:00 EDT, Route to Pharmacy Electronically, [facility] #[id number], Partial fill upon patientrequest if the prescription is for a schedule II op... Start Date: 01/10/21 Status: Ordered ProAir HFA 90 mcg/inh inhalation aerosol with adapter 2, puffs, Inhalation, 4 times a day, PRN, # 1 each, Refills 6, Tot. Refills 6, Maintenance, 08/26/20 14:10:00 EDT, Route to Pharmacy Electronically, [id number], [facility] #[id number], 151, cm, 08/26/20 13:26:00 EDT, Height Start Date: 08/26/20 Status: Ordered Trelegy Ellipta 200 mcg-62.5 mcg-25 mcg/inh inhalation powder 1 puffs, Inhalation, Daily, at the same time every day, # 1 each, 6 Refills, Maintenance, 12/06/20 9:31:00 EDT, Powder, [facility] #54877, Partial fill upon patient request if the [...]
--- OUTSIDE RECORDS SUMMARY | 2023-08-31 08:16 | XMS_ITS | Continuity of Care Document ---
Author Organization [facility] Address [address] [place] [address]- Care Team Providers Care Computer Numerical Control Operator Name Role Phone Tray BROWN, Robert Anthony Primary Care Physician Encounter [facility] [place] Date(s): 04/08/21 - 05/08/21 [facility] [address] [place] [address]- Allergies, Adverse Reactions, Alerts Substance Reaction Severity [...] vaccine 9 06/20/12 Recorded 1Location History: [facility]Location History: [facility] 3Result Comment: [06/19/2016] [facility] 4Result Comment: [06/19/2016] [facility] 5Early/Late Reason: Other : 6Result Comment: [06/19/2016] [facility] 7Result Comment: [06/19/2016] [facility] 8Result Comment: [06/19/2016] [facility] 9Result Comment: [06/19/2016] [facility] Medications albuterol 0.083% inhalation solution 3 mL = 2.5 mg, Inhalation, Every 6 hours, use Acapella device after every treatment, # 120 each, 3 Refills, Maintenance, 06/27/20 15:48:00 EST, Solution, [facility] #97403, 151, cm, 02/05/20 7:35:00 EDT, Height Start Date: 06/27/20 Status: Ordered amoxicillin 500 mg oral capsule 4 capsule = 2,000 mg, By Mouth, Once, take 4 capsules prior to dental procedure, # 4 capsule, 5 Refills, Soft Stop, 05/06/21 17:27:00 EST, [facility] #88384, 151, cm, 05/05/21 12:08:00 EST,Height Start Date: [...] Replace Required Details, Route to Pharmacy Electronically, [facility] #31937, 151, cm, 03/07/21 9:27:00 EST, Height Start Date: 04/15/21 Status: Ordered Hyper-Don 7% inhalation solution 4 mL = 0.28 Gm, Neb, 2 times a day, take with 0.5ml = 2.5 mg albuterol (add hypersal 4ml to 0.5ml albuterol) twice a day, # 240 mL, 11 Refills, Maintenance, 08/07/20 9:58:00 EDT, [facility]#11049, J47.0 bronchiectasis, 4 mL Neb 2 times a da... Start Date: 08/07/20 Stop Date: 08/02/21 Status: Ordered Imodium Capsule 2 mg, By Mouth, Every 4 hours, Refills 0, Maintenance, 05/05/21 12:12:00 EST, Partial fill upon patient request if the prescription is for a schedule II opioid drug. Start Date: 05/05/21 Status: Ordered Lasix 40 mg oral tablet 40 mg, 1, tablet, By Mouth, Daily, prescribed by [facility] doctor 12/18/20, # 30 tablet, Refills 5, Tot. Refills 5, Maintenance, 04/16/21 11:55:00 EST, Route to Pharmacy Electronically, [facility] #[id number], Partial fill upon patient request if th... Start Date: 04/16/21 Status: Ordered losartan 25 mg oral tablet 12.5 mg, 0.5, tablet, By Mouth, Daily, Take 0.5 tablet (12.5mg) daily, # 15 tablet, Refills 11, Tot. Refills 11, Maintenance, 02/05/21 8:59:00 EDT, Route to Pharmacy Electronically, [facility] #15563, Partial fill upon patient request if the... Start Date: 02/05/21 Status: Ordered meloxicam 7.5 mg oral tablet 1 tablet, By Mouth, Daily, # 90 tablet, 0 Refills, [facility] #[id number], 151, cm, 12/27/20 8:19:00 EDT, Height Start [...] 01/10/21 13:45:00 EDT, Route to Pharmacy Electronically, [facility] #21002, Partial fill upon patientrequest if the prescription is for a schedule II op... Start Date: 01/10/21 Status: Ordered ProAir HFA 90 mcg/inh inhalation aerosol with adapter 2, puffs, Inhalation, 4 times a day, PRN, # 1 each, Refills 6, Tot. Refills 6, Maintenance, 08/26/20 14:10:00 EDT, Route to Pharmacy Electronically, [id number], [facility] #56857, 151, cm, 08/26/20 13:26:00 EDT, Height Start Date: 08/26/20 Status: Ordered rosuvastatin 5 mg oral tablet 1 tablet = 5 mg, By Mouth, Daily, # 30 tablet, 5 Refills, Maintenance, 04/08/21 9:24:00 EST, Tablet, [facility] #46576, 151, cm, 03/07/21 9:27:00 EST, Height Start Date: 04/08/21 Stop Date: 10/05/21 Status: Ordered Trelegy Ellipta 200 mcg-62.5 mcg-25 mcg/inh inhalation powder 1 puffs, Inhalation, Daily, at the same time every day, # 1 each, 6 Refills, Maintenance, 12/06/20 9:31:00 EDT, Powder, [facility] #[id number], Partial fill upon patient request if the [...]
--- OUTSIDE RECORDS SUMMARY | 2023-08-31 08:16 | XMS_ITS | Continuity of Care Document ---
Author Organization [facility] Address [address] [place] [address]- Care Team Providers Care Curriculum Designer Name Role Phone Tray BROWN, Robert Anthony Primary Care Physician [phone] Encounter [facility] Date(s): 12/10/22 - 01/09/23 [facility] Adult [address] [place] [address]- Allergies, Adverse Reactions, Alerts Substance Reaction Severity Status codeine Active Fish Active tetanus toxoid Active sulfa drugs Active Immunizations Given and Recorded Vaccine Date Status Refusal Reason [id number] 12y+ bivalent booster vax 08/15/22 Recorded Influenza Virus Vaccine (oldterm) 1 02/03/22 Recor ded SARS-CoV-2 mRNA (gaybjzl-qnpa-dwxey) vax 08/06/21 Recorded SARS-CoV-2 (COVID-19) mRNA BNT-162b2 [...] 06/20/12 [facility] 1Result Comment: influenza at [facility] 2Location History: [facility] 3Location History: [facility] 4Result Comment: [06/19/2016] [facility] 5Result Comment: [06/19/2016] [facility] 6Early/Late Reason: Other : 7Result Comment: [06/19/2016] [facility] 8Result Comment: [06/19/2016] [facility] 9Result Comment: [06/19/2016] [facility] 10Result Comment: [06/19/2016] [facility] Medications albuterol 0.083% inhalation solution 3 mL, Inhalation, Every 6 hours, USE ACAPELLA DEVICE AFTER EVERY TREATMENT., # 360 mL, 5 Refills, [facility] #[id number], 151, cm, 09/29/21 13:12:00 EDT, Height, 61.69, kg, 09/29/21 13:11:00 EDT, Dry Weight Start Date: 11/13/21 Status: Ordered bisoprolol 5 mg oral tablet See Instructions, TAKE 1/2 TABLET DAILY, # 45 tablet, 1 Refills, Maintenance, 09/04/22 16:11:00 EDT, [facility], 150, cm, 08/28/22 9:37:00 EDT, Height, 61, kg, 04/17/22 11:31:00 EST, Dry Weight Start Date: 09/04/22 Status: Ordered clopidogrel 75 mg oral tablet 1, tablet, By Mouth, Daily, # 90 Unknown, Refills 0, Tot. Refills 0, Maintenance, 10/19/22 15:23:00EDT, Route to Pharmacy Electronically, [facility], 150, cm, 08/28/22 9:37:00 EDT, Height, 61, kg, 04/17/22 11:31:00 EST, Dry Weight Start Date: 10/19/22 Status: Ordered Lasix 40 mg oral tablet 1, tablet, By Mouth, Daily, # 90 Unknown, Refills 3, Route to Pharmacy Electronically, [facility], 151, cm, 09/29/21 13:12:00 EDT, Height, [...] 12/22/22 10:35:00 EDT, Route to Pharmacy Electronically, [facility] #[id number], Partial fill upon patient req... Start Date: 12/22/22 Status: Ordered ProAir HFA 90 mcg/inh inhalation aerosol with adapter 2, puffs, Inhalation, 4 times a day, PRN, # 1 each, Refills 5, Tot. Refills 5, Maintenance, 10/17/21 15:25:00 EDT, Route to Pharmacy Electronically, [id number], [facility] #44561, 151, cm, 09/29/21 13:12:00 EDT, Hei... Start [...] mL, 0 Refills, Maintenance, 11/27/22 15:51:00 EDT, [facility] #72050, 12, USE 4 ML VIA NEBULIZER TWICE DAILY USE WITH 0.... Start Date: 11/27/22 Status: Ordered traMADol 50 mg oral tablet 1 tablet = 50 mg, By Mouth, Every 12 hours, PRN for pain, # 30 tablet, 2 Refills, Acute 01/21/23 12:24:00 EDT, 11/20/22 12:24:00 EDT, Tablet, [facility] #[id number], Partial fill upon patient request if the prescription is for a schedule II opioi... Start Date: 11/20/22 Stop Date: 01/21/23 Status: Ordered Trelegy Ellipta 200 mcg-62.5 mcg-25 mcg/inh inhalation powder 1 puffs, Inhalation, Daily, at the same time every day, j44.9, # 1 each, 6 Refills, Maintenance, 10/14/22 11:12:00 EDT, Powder, [facility] #72699, Partial fill upon patient request if the [...] chart review meeting GFR criteria 6Admission to [facility] for [place] 11/2020. Cardiac MRI: LVEF 44%; 12/16/20 echo at [facility]: LVEF=40-45% 8Per CT w/contrast 12/19/2021: Irregular partially calcified tissue along the distal left main pulmonary artery extending along the regular small caliber left lower lobe pulmonary artery branch probably reflecting chronic thrombus.. [id number]-Jwbrewmzz as lung mass. S/P R-CHOP x 6 cycles. Social History Social History Type Response Smoking Status Former smoker entered on: 09/06/14 Sex Patient Care team information Care Team Personnel Name: Francoise Black RN Position: S RN Member Role: Primary Care Nurse Name: Chiqui Stoll RN Position: S RN Member Role: Primary Care Nurse Name: Robert Feliz MD Position: [facility] Physician - Primary Care Member Role: PCP Address: Address: [address] [place] [address]- Care Team Related Persons Name: RAMIRO MARR Address: home [address] [place] [address]
--- OUTSIDE RECORDS SUMMARY | 2023-08-31 08:16 | XMS_ITS | Continuity of Care Document ---
Author Organization [facility] Address [address] [place] [address]- Care Team Providers Care Gas Engine Operator Generators Name Role Phone Tray BROWN, Robert Anthony Primary Care Physician [phone] [place] [facility] [place]16[place] - 08/15/20 [facility] [address] [place] [address]- Allergies, Adverse Reactions, Alerts Substance Reaction Severity [...] 8Result Comment: [06/19/2016] [facility] 9Result Comment: [06/19/2016] [facility] Medications albuterol 0.083% inhalation solution 3 mL = 2.5 mg, Inhalation, Every 6 hours, use Acapella device after every treatment, # 120 each, 3 Refills, Maintenance, 06/27/20 15:48:00 EST, Solution, [facility] #[id number], 151, cm, 02/05/20 7:35:00 EDT, Height Start Date: 06/27/20 Status: Ordered albuterol 5 mg/mL (0.5%) inhalation solution 0.5 mL = 2.5 mg, Inhalation, 2 times a day, PRN for wheezing, dilute in 4 mL of Hyper-Don and take twice a day, # 120 each, 5 Refills, Maintenance, 08/07/20 9:57:00 EDT, Solution, [facility] #80819, J47.0 bronchiectasis, 151, cm, 02/05/20 7:... Start Date: 08/07/20 Stop Date: 02/03/21 Status: Ordered amoxicillin 500 mg oral capsule 4 capsule = 2,000 mg, By Mouth, Once, take 4 capsules prior to dental procedure, # 4 capsule, 0 Refills, Soft Stop, 08/15/20 16:35:00 EDT, [facility] #[id number], 151, cm, 02/05/20 7:35:00 EDT, Height Start Date: 08/15/20 Status: Ordered aspirin 81 mg oral tablet, chewable 81 mg, 1, tablet, By Mouth, Daily, # 90 tablet, Refills 3, Tot. Refills 3, Maintenance, 02/05/20 7:58:00 EDT, Route to Pharmacy Electronically, [facility] #67090, 151, cm, 02/05/20 7:35:00 EDT, Height, 65.4, kg, 05/02/18 11:04:00 EST, Dry We... Start Date: 02/05/20 Status: Ordered Hyper-Don 7% inhalation solution 4 mL = 0.28 Gm, Neb, 2 times a day, take with 0.5ml = 2.5 mg albuterol (add hypersal 4ml to 0.5ml albuterol) twice a day, # 240 mL, 11 Refills, Maintenance, 08/07/20 9:58:00 EDT, [facility]#04633, J47.0 bronchiectasis, 4 mL Neb 2 times a da... Start Date: 08/07/20 Stop Date: 08/02/21 Status: Ordered meloxicam 7.5 mg oral tablet 1 tablet, By Mouth, Daily, # 90 tablet, 0 Refills, Maintenance, 07/01/20 12:15:00 EST, [facility] #[id number], 151, cm, 02/05/20 7:35:00 EDT, Height Start [...] 05/17/19 14:49:00 EST, Route to Pharmacy Electronically, [id number], [facility] #[id number], 151, cm, 05/17/19 14:23:00 EST, Hei... Start [...] 05/07/20 13:57:00 EST, Route to Pharmacy Electronically, [facility] #24640, 151, cm, 02/05/20 7:35:00 EDT, Height Start [...]
--- OUTSIDE RECORDS SUMMARY | 2023-08-31 08:16 | XMS_ITS | Continuity of Care Document ---
Author Organization [facility] Address [address] [place] [address]- Care Team Providers Care Scarrer Name Role Phone Tray BROWN, Robert Anthony Primary Care Physician Encounter [facility] Date(s): 11/22/19 - 12/22/19 [facility] [address] [place] [address] [place] [address]- [facility] Attending Physician: Adithya Sheth Admitting Physician: AdmtrAdithya Referring Physician: Admtr, ArPaulina Allergies, Adverse Reactions, Alerts Substance Reaction Severity [...] Recorded 1Location History: [facility] 2Location History: [facility] 3Result Comment: [06/19/2016] [facility] 4Result Comment: [06/19/2016] [facility] 5Early/Late Reason: Other : 6Result Comment: [06/19/2016] [facility] 7Result Comment: [06/19/2016] [facility] 8Result Comment: [06/19/2016] [facility] 9Result Comment: [06/19/2016] [facility] Medications amoxicillin 500 mg oral capsule 4 capsule = 2,000 mg, By Mouth, Once, take 4 capsules prior to dental procedure, # 4 capsule, 0 Refills, Soft Stop, 12/11/19 16:36:00 EDT, [facility] #[id number], 151, cm, 11/22/19 11:48:00 EDT,Height, 65.4, kg, 05/02/18 11:04:00 EST, Dry Weight Start Date: 12/11/19 Status: Ordered meloxicam 7.5 mg oral tablet 1 tablet = 7.5 mg, By Mouth, Daily, # 90 tablet, 1 Refills, Maintenance, 06/01/19 12:03:00 EST, Tablet, [facility] #[id number], 151, cm, 05/23/19 11:27:00 EST, Height, 65.4, [...] 10/03/18 15:01:00 EDT, Route to Pharmacy Electronically, [id number], [facility] 02058, J47.9 Start Date: 10/03/18 Status: Ordered ProAir HFA 90 mcg/inh inhalation aerosol with adapter 2, puffs, Inhalation, 4 times a day, PRN, # 1 each, Refills 6, Tot. Refills 6, Maintenance, 05/17/19 14:49:00 EST, Route to Pharmacy Electronically, [id number], [id number], 151, cm, 05/17/19 14:23:00 EST, Hei... Start [...]
--- OUTSIDE RECORDS SUMMARY | 2023-08-31 08:16 | XMS_ITS | Continuity of Care Document ---
Author Organization [facility] Address [address] [place] [address]- Care Team Providers Care Manager Commercial Name Role Phone Tray BROWN, Robert Anthony Primary Care Physician Encounter [facility] Date(s): 05/24/19 - 05/31/19 [facility] [address] [place] [address]- [facility] Attending Physician: Ana María BROWN, Ce Simeon [...] 6Result Comment: [06/19/2016] [facility] 7Result Comment: [06/19/2016] [facility] 8Result Comment: [06/19/2016] [facility] 9Result Comment: [06/19/2016] JANET Medications amoxicillin 500 [...] 10/03/18 15:01:00 EDT, Route to Pharmacy Electronically, [id number], [facility] [address]4915, J47.9 Start Date: 10/03/18 Status: Ordered ProAir HFA 90 mcg/inh inhalation aerosol with adapter 2, puffs, Inhalation, 4 times a day, PRN, # 1 each, Refills 6, Tot. Refills 6, Maintenance, 05/17/19 14:49:00 EST, Route to Pharmacy Electronically, [id number], [facility] #[id number], 151, cm, 05/17/19 14:23:00 EST, Hei... Start [...]
--- OUTSIDE RECORDS SUMMARY | 2023-08-31 08:16 | XMS_ITS | Continuity of Care Document ---
Author Organization [facility] Address [address] [place] [address]- Care Team Providers Care Physical Chemist Name Role Phone Tray BROWN, Robert Anthony Primary Care Physician [place] [facility] Date(s): 04/14/21 - 05/14/21 [facility] Adult [address] [place] [address]- Allergies, Adverse Reactions, Alerts Substance Reaction Severity [...] vaccine 9 06/20/12 Recorded 1Location History: [facility] 2Location History: [facility] 3Result Comment: [06/19/2016] [facility] 4Result Comment: [06/19/2016] [facility] 5Early/Late Reason: Other : 6Result Comment: [06/19/2016] [facility] 7Result Comment: [06/19/2016] [facility] 8Result Comment: [06/19/2016] [facility] 9Result Comment: [06/19/2016] [place] Medications albuterol 0.083% inhalation solution 3 mL = 2.5 mg, Inhalation, Every 6 hours, use Acapella device after every treatment, # 120 each, 3 Refills, Maintenance, 06/27/20 15:48:00 EST, Solution, [facility] #[id number], 151, cm, 02/05/20 7:35:00 EDT, Height Start Date: 06/27/20 Status: Ordered amoxicillin 500 mg oral capsule 4 capsule = 2,000 mg, By Mouth, Once, take 4 capsules prior to dental procedure, # 4 capsule, 5 Refills, Soft Stop, 05/06/21 17:27:00 EST, [facility] #[id number], 151, cm, 05/05/21 12:08:00 EST,Height Start Date: [...] Replace Required Details, Route to Pharmacy Electronically, [facility] #[id number], 151, cm, 03/07/21 9:27:00 EST, Height Start Date: 04/15/21 Status: Ordered Hyper-Don 7% inhalation solution 4 mL = 0.28 Gm, Neb, 2 times a day, take with 0.5ml = 2.5 mg albuterol (add hypersal 4ml to 0.5ml albuterol) twice a day, # 240 mL, 11 Refills, Maintenance, 08/07/20 9:58:00 EDT, [facility]#59535, J47.0 bronchiectasis, 4 mL Neb 2 times [...] 1, tablet, By Mouth, Daily, prescribed by [facility] IN[facility] doctor 12/18/20, # 30 tablet, Refills 5, Tot. Refills 5, Maintenance, 04/16/21 11:55:00 EST, Route to Pharmacy Electronically, [facility] #08382, Partial fill upon patient request if th... Start Date: 04/16/21 Status: Ordered losartan 25 mg oral tablet 12.5 mg, 0.5, tablet, By Mouth, Daily, Take 0.5 tablet (12.5mg) daily, # 15 tablet, Refills 11, Tot. Refills 11, Maintenance, 02/05/21 8:59:00 EDT, Route to Pharmacy Electronically, [facility] #52951, Partial fill upon patient request if the... Start Date: 02/05/21 Status: Ordered meloxicam 7.5 mg oral tablet 1 tablet, By Mouth, Daily, # 90 tablet, 0 Refills, [facility] #48247, 151, cm, 12/27/20 8:19:00 EDT, Height Start [...] 01/10/21 13:45:00 EDT, Route to Pharmacy Electronically, [facility] #21819, Partial fill upon patientrequest if the prescription is for a schedule II op... Start Date: 01/10/21 Status: Ordered ProAir HFA 90 mcg/inh inhalation aerosol with adapter 2, puffs, Inhalation, 4 times a day, PRN, # 1 each, Refills 6, Tot. Refills 6, Maintenance, 08/26/20 14:10:00 EDT, Route to Pharmacy Electronically, [id number], [facility] #[id number], 151, cm, 08/26/20 13:26:00 EDT, Height Start Date: 08/26/20 Status: Ordered rosuvastatin 5 mg oral tablet 1 tablet = 5 mg, By Mouth, Daily, # 30 tablet, 5 Refills, Maintenance, 04/08/21 9:24:00 EST, Tablet, [facility] #64394, 151, cm, 03/07/21 9:27:00 EST, Height Start Date: 04/08/21 Stop Date: 10/05/21 Status: Ordered Trelegy Ellipta 200 mcg-62.5 mcg-25 mcg/inh inhalation powder 1 puffs, Inhalation, Daily, at the same time every day, # 1 each, 6 Refills, Maintenance, 12/06/20 9:31:00 EDT, Powder, [facility] #08787, Partial fill upon patient request if the [...]
--- OUTSIDE RECORDS SUMMARY | 2023-08-31 08:16 | XMS_ITS | Continuity of Care Document ---
Author Organization [facility] Address [address] [place] [address]- Care Team Providers Care Cloth Folder Machine Name Role Phone Tray BROWN, Robert Anthony Primary Care Physician Encounter [facility] Date(s): 06/17/20 - 07/17/20 [facility] [address] [place] [id number] Allergies, Adverse Reactions, Alerts Substance Reaction Severity [...] 3 Refills, Maintenance, 06/27/20 15:48:00 EST, Solution, [facility] #33930, 151, cm, 02/05/20 7:35:00 EDT, Height Start Date: 06/27/20 Status: Ordered amoxicillin 500 mg oral capsule 4 capsule = 2,000 mg, By Mouth, Once, take 4 capsules prior to dental procedure, # 4 capsule, 0 Refills, Soft Stop, 12/27/19 12:56:00 EDT, [facility] #68723, 151, cm, 11/22/19 11:48:00 EDT,Height, 65.4, kg, 05/02/18 11:04:00 EST, Dry Weight Start Date: 12/27/19 Status: Ordered aspirin 81 mg oral tablet, chewable 81 mg, 1, tablet, By Mouth, Daily, # 90 tablet, Refills 3, Tot. Refills 3, Maintenance, 02/05/20 7:58:00 EDT, Route to Pharmacy Electronically, [facility] #10141, 151, cm, 02/05/20 7:35:00 EDT, Height, 65.4, kg, 05/02/18 11:04:00 EST, Dry We... Start Date: 02/05/20 Status: Ordered meloxicam 7.5 mg oral tablet 1 tablet, By Mouth, Daily, # 90 tablet, 0 Refills, Maintenance, 07/01/20 12:15:00 EST, [facility] #53912, 151, cm, 02/05/20 7:35:00 EDT, Height Start [...] 05/17/19 14:49:00 EST, Route to Pharmacy Electronically, [id number], [facility] #[id number], 151, cm, 05/17/19 14:23:00 EST, Hei... Start [...] 05/07/20 13:57:00 EST, Route to Pharmacy Electronically, [facility] #[id number], 151, cm, 02/05/20 7:35:00 EDT, Height Start [...]
--- OUTSIDE RECORDS SUMMARY | 2023-08-31 08:16 | XMS_ITS | Continuity of Care Document ---
Author Organization [facility] Address [address] [place] [address]- Care Team Providers Care Immigration Investigator Name Role Phone Tray BROWN, Robert Anthony Primary Care Physician [phone] Encounter [facility] [place] Date(s): 11/12/22 - 12/12/22 [facility] [address] [place] [address]- Attending Physician: Adithya Sheth Admitting Physician: Adithya Sheth Referring Physician: AdmtrAdithya Allergies, Adverse Reactions, Alerts Substance Reaction Severity Status codeine Active tetanus toxoid Active sulfa drugs Active Fish Active Immunizations Given and Recorded Vaccine Date Status Refusal Reason [id number] 12y+ bivalent booster vax 08/15/22 Recorded Influenza Virus Vaccine (oldterm) 1 02/03/22 Recor ded SARS-CoV-2 mRNA ([id number]) vax 08/06/21 Recorded SARS-CoV-2 (COVID-19) mRNA BNT-162b2 [...] 06/20/12 Recorde d 1Result Comment: influenza at [facility] 2Location History: [facility] 3Location History: [facility] 4Result Comment: [06/19/2016] [facility] 5Result Comment: [06/19/2016] [facility] 6Early/Late Reason: Other : 7Result Comment: [06/19/2016] [facility] 8Result Comment: [06/19/2016] [facility] 9Result Comment: [06/19/2016] [facility] 10Result Comment: [06/19/2016] [facility] Medications albuterol 0.083% inhalation solution 3 mL, Inhalation, Every 6 hours, USE ACAPELLA DEVICE AFTER EVERY TREATMENT., # 360 mL, 5 Refills, [facility] #[id number], 151, cm, 09/29/21 13:12:00 EDT, Height, 61.69, kg, 09/29/21 13:11:00 EDT, Dry Weight Start Date: 11/13/21 Status: Ordered bisoprolol 5 mg oral tablet See Instructions, TAKE 1/2 TABLET DAILY, # 45 tablet, 1 Refills, Maintenance, 09/04/22 16:11:00 EDT, [facility], 150, cm, 08/28/22 9:37:00 EDT, Height, 61, kg, 04/17/22 11:31:00 EST, Dry Weight Start Date: 09/04/22 Status: Ordered clopidogrel 75 mg oral tablet 1, tablet, By Mouth, Daily, # 90 Unknown, Refills 0, Tot. Refills 0, Maintenance, 10/19/22 15:23:00EDT, Route to Pharmacy Electronically, [facility], 150, cm, 08/28/22 9:37:00 EDT, Height, 61, kg, 04/17/22 11:31:00 EST, Dry Weight Start Date: 10/19/22 Status: Ordered Lasix 40 mg oral tablet 1, tablet, By Mouth, Daily, # 90 Unknown, Refills 3, Route to Pharmacy Electronically, [facility], 151, cm, 09/29/21 13:12:00 EDT, Height, 61.69, kg, 09/29/21 13:11:00 EDT, Dry Weight Start Date: 11/05/21 Status: Ordered losartan 25 mg oral tablet See Instructions, TAKE 1/2 TABLET DAILY, # 45 tablet, 1 Refills, Maintenance, 09/04/22 16:13:00 EDT, [facility], 150, cm, 08/28/22 9:37:00 EDT, Height, [...] 10/17/21 15:25:00 EDT, Route to Pharmacy Electronically, [id number], [facility][id number], 151, cm, 09/29/21 13:12:00 EDT, Hei... Start [...] mL, 0 Refills, Maintenance, 11/27/22 15:51:00 EDT, [facility] #83267, 12, USE 4 ML VIA NEBULIZER TWICE DAILY USE WITH 0.... Start Date: 11/27/22 Status: Ordered traMADol 50 mg oral tablet 1 tablet = 50 mg, By Mouth, Every 12 hours, PRN for pain, # 30 tablet, 2 Refills, Acute 01/21/23 12:24:00 EDT, 11/20/22 12:24:00 EDT, Tablet, [facility] #[id number], Partial fill upon patient request if the prescription is for a schedule II opioi... Start Date: 11/20/22 Stop Date: 01/21/23 Status: Ordered Trelegy Ellipta 200 mcg-62.5 mcg-25 mcg/inh inhalation powder 1 puffs, Inhalation, Daily, at the same time every day, j44.9, # 1 each, 6 Refills, Maintenance, 10/14/22 11:12:00 EDT, Powder, [facility] #61110, Partial fill upon patient request if the [...] review meeting GFR criteria 6Admission to [facility] for CHF 11/2020. Cardiac MRI: LVEF 44%; 12/16/20 echo at [facility]: LVEF=40-45% 8Per CT w/contrast 12/19/2021: Irregular partially calcified tissue along the distal left main pulmonary artery extending along the regular small caliber left lower lobe pulmonary artery branch probably reflecting chronic thrombus.. 31613-[facility] as lung mass. S/P R-CHOP x 6 [...] Care Member Role: PCP Address: Address: [address] [place] [address]- Care Team Related Persons Name: RAMIRO MARR Address: home [address] [place] [address]
--- OUTSIDE RECORDS SUMMARY | 2023-08-31 08:16 | XMS_ITS | Continuity of Care Document ---
Author Organization [facility] Address [address] [place] [address]- Care Team Providers Care Machinist Outside Name Role Phone Tray BROWN, Robert R Primary Care Physician [phone] [place] [facility] 03[place]07[place] - 03/14/21 [facility] [address] [place] [address]- Attending Physician: Natan Holden MD Admitting Physician: Natan Holden MD Referring Physician: Kenneth Chowdary MD Allergies, Adverse Reactions, Alerts Substance Reaction [...] 3 Refills, Maintenance, 06/27/20 15:48:00 EST, Solution, [facility] #[id number], 151, cm, 02/05/20 7:35:00 EDT, Height Start Date: 06/27/20 Status: Ordered amoxicillin 500 mg oral capsule 4 capsule = 2,000 mg, By Mouth, Once, take 4 capsules prior to dental procedure, # 4 capsule, 0 Refills, Soft Stop, 08/15/20 16:35:00 EDT, [facility] #[id number], 151, cm, 02/05/20 7:35:00 EDT, Height Start Date: 08/15/20 Status: Ordered atorvastatin 40 mg oral tablet 1 tablet = 40 mg, By Mouth, Daily, # 30 tablet, 11 Refills, Maintenance, 02/26/21 15:23:00 EDT, Tablet, [facility] #94037, Partial fill upon patient request if the prescription is for a schedule II opioid drug., 151, cm, 02/10/21 10:22:00 ED... Start Date: 02/26/21 Stop Date: 02/21/22 Status: Ordered Hyper-Don 7% inhalation solution 4 mL = 0.28 Gm, Neb, 2 times a day, take with 0.5ml = 2.5 mg albuterol (add hypersal 4ml to 0.5ml albuterol) twice a day, # 240 mL, 11 Refills, Maintenance, 08/07/20 9:58:00 EDT, [facility]20321, J47.0 bronchiectasis, 4 mL Neb 2 times a da... Start Date: 08/07/20 Stop Date: 08/02/21 Status: Ordered Lasix 40 mg oral tablet 40 mg, 1, tablet, By Mouth, Daily, prescribed by [facility] [place] 12/18/20, # 30 tablet, Refills 2, Tot. Refills 2, Maintenance, 01/10/21 13:42:00 EDT, Route to Pharmacy Electronically, [facility] #06481, Partial fill upon patient request if th... Start Date: 01/10/21 Status: Ordered losartan 25 mg oral tablet 12.5 mg, 0.5, tablet, By Mouth, Daily, Take 0.5 tablet (12.5mg) daily, # 15 tablet, Refills 11, Tot. Refills 11, Maintenance, 02/05/21 8:59:00 EDT, Route to Pharmacy Electronically, [facility] #66045, Partial fill upon patient request if the... Start Date: 02/05/21 Status: Ordered meloxicam 7.5 mg oral tablet 1 tablet, By Mouth, Daily, # 90 tablet, 0 Refills, [facility] #[id number], 151, cm, 12/27/20 8:19:00 EDT, Height Start [...] 01/10/21 13:45:00 EDT, Route to Pharmacy Electronically, [facility] #[id number], Partial fill upon patientrequest if the prescription is for a schedule II op... Start Date: 01/10/21 Status: Ordered ProAir HFA 90 mcg/inh inhalation aerosol with adapter 2, puffs, Inhalation, 4 times a day, PRN, # 1 each, Refills 6, Tot. Refills 6, Maintenance, 08/26/20 14:10:00 EDT, Route to Pharmacy Electronically, [id number], [facility] #[id number], 151, cm, 08/26/20 13:26:00 EDT, Height Start Date: 08/26/20 Status: Ordered Trelegy Ellipta 200 mcg-62.5 mcg-25 mcg/inh inhalation powder 1 puffs, Inhalation, Daily, at the same time every day, # 1 each, 6 Refills, Maintenance, 12/06/20 9:31:00 EDT, Powder, [facility] #69248, Partial fill upon patient request if the [...] oldest [Reference Range]: 1 Height 151 cm (03/07/21 9:27 AM) Weight 60.9 kg (03/07/21 9:27 AM) Pulse Rate [55-90 bpm] 88 bpm (03/07/21 9:27 AM) Body Mass Index [18.5-24.99] 26.71 *H* (03/07/21 9:27 AM) Blood Pressure [90-138/55-84 mm Hg] 106/ 58mm Hg (03/07/21 9:27 AM) Blood pressure sites Arm, right (03/07/21 9:27 AM) Weight Obtained Via Patient/family state d (03/07/21 9:27 AM) Social History Social History Type Response Smoking Status Former smoker entered on: 09/06/14 Sex
--- OUTSIDE RECORDS SUMMARY | 2023-08-31 08:16 | XMS_ITS | Continuity of Care Document ---
Author Organization [facility] Address [address] [place] [address]- Care Team Providers Care Bundling Machine Operator Name Role Phone Tray BROWN, Robert Anthony Primary Care Physician Encounter [facility] Date(s): 10/20/22 - 11/19/22 [facility] [address] [place] [address]- Allergies, Adverse Reactions, Alerts Substance Reaction Severity Status codeine Active tetanus toxoid Active sulfa drugs Active Fish Active Immunizations Given and Recorded Vaccine Date Status Refusal Reason [id number] 12y+ bivalent booster vax 08/15/22 Recorded Influenza Virus Vaccine (oldterm) 1 02/03/22 Recor ded SARS-CoV-2 mRNA (nlhxrhc-iiqu-bbauv) vax 08/06/21 Recorded SARS-CoV-2 (COVID-19) mRNA BNT-162b2 [...] 06/20/12 Recorde d 1Result Comment: influenza at [facility] 2Location History: [facility]: [facility] 4Result Comment: [06/19/2016] [facility] 5Result Comment: [06/19/2016] [facility] 6Early/Late Reason: Other : 7Result Comment: [06/19/2016] [facility] 8Result Comment: [06/19/2016] [facility] 9Result Comment: [06/19/2016] [facility] 10Result Comment: [06/19/2016] [facility] Medications albuterol 0.083% inhalation solution 3 mL, Inhalation, Every 6 hours, USE ACAPELLA DEVICE AFTER EVERY TREATMENT., # 360 mL, 5 Refills, [facility] #52221, 151, cm, 09/29/21 13:12:00 EDT, Height, 61.69, kg, 09/29/21 13:11:00 EDT, Dry Weight Start Date: 11/13/21 Status: Ordered bisoprolol 5 mg oral tablet See Instructions, TAKE 1/2 TABLET DAILY, # 45 tablet, 1 Refills, Maintenance, 09/04/22 16:11:00 EDT, [facility], 150, cm, 08/28/22 9:37:00 EDT, Height, 61, kg, 04/17/22 11:31:00 EST, Dry Weight Start Date: 09/04/22 Status: Ordered clopidogrel 75 mg oral tablet 1, tablet, By Mouth, Daily, # 90 Unknown, Refills 0, Tot. Refills 0, Maintenance, 10/19/22 15:23:00EDT, Route to Pharmacy Electronically, [facility], 150, cm, 08/28/22 9:37:00 EDT, Height, 61, kg, 04/17/22 11:31:00 EST, Dry Weight Start Date: 10/19/22 Status: Ordered Lasix 40 mg oral tablet 1, tablet, By Mouth, Daily, # 90 Unknown, Refills 3, Route to Pharmacy Electronically, [facility], 151, cm, 09/29/21 13:12:00 EDT, Height, [...] 10/17/21 15:25:00 EDT, Route to Pharmacy Electronically, [id number], [facility] #[id number], 151, cm, 09/29/21 13:12:00 EDT, Hei... Start Date: 10/17/21 Status: Ordered Sodium Chloride, Inhalation 0.9% inhalation solution See Instructions, USE 4 ML VIA NEBULIZER TWICE DAILY USE WITH 0.5% VIA INHALER SOLUTION TOGETHER INVIA NEBULIZER, # 300 mL, 0 Refills, Maintenance, 04/28/22 9:38:00 EST, [facility] #[id number],25, USE 4 ML VIA NEBULIZER TWICE DAILY USE WITH 0.5... Start Date: 04/28/22 Status: Ordered Trelegy Ellipta 200 mcg-62.5 mcg-25 mcg/inh inhalation powder 1 puffs, Inhalation, Daily, at the same time every day, j44.9, # 1 each, 6 Refills, Maintenance, 10/14/22 11:12:00 EDT, Powder, [facility] #25878, Partial fill upon patient request if the [...] chart review meeting GFR criteria 6Admission to [facility] [place] 11/2020. Cardiac MRI: LVEF 44%; 12/16/20 echo at [facility]: LVEF=40-45% 8Per CT w/contrast 12/19/2021: Irregular partially calcified tissue along the distal left main pulmonary artery extending along the regular small caliber left lower lobe pulmonary artery branch probably reflecting chronic thrombus.. 23397-Gyoimswla as lung mass. S/P R-CHOP x 6 cycles. Social History Social History Type Response Smoking Status Former smoker entered on: 09/06/14 Sex Patient Care team information Care Team Personnel Name: Francoise Black RN Position: [facility] RN Member Role: Primary Care Nurse Name: Chiqui Stoll RN Position: [facility] RN Member Role: Primary Care Nurse Name: Robert Feliz MD Position: [facility] Physician - Primary Care Member Role: PCP Address: Address: [address] [place] [address]- Care Team Related Persons Name: RAMIRO MARR Address: home [address] [place] [address]
--- OUTSIDE RECORDS SUMMARY | 2023-08-31 08:16 | XMS_ITS | Continuity of Care Document ---
Author Organization [facility] Address [address] [place] [address]- Care Team Providers Care Director Orange Name Role Phone Tray BROWN, Robert Anthony Primary Care Physician [phone] Encounter [facility] Date(s): 11/26/22 - 12/26/22 [facility] [address] [place] [address] Attending Physician: Adithya Sheth Admitting Physician: Adithya Sheth Referring Physician: trAdithya Allergies, Adverse Reactions, Alerts Substance Reaction Severity Status codeine Active tetanus toxoid Active sulfa drugs Active Fish Active Immunizations Given and Recorded Vaccine Date Status Refusal Reason [id number] 12y+ bivalent booster vax 08/15/22 Recorded Influenza Virus Vaccine (oldterm) 1 02/03/22 Recor ded SARS-CoV-2 mRNA (xwvnvtf-yucb-iwlfz) vax 08/06/21 Recorded SARS-CoV-2 (COVID-19) mRNA BNT-162b2 [...] 06/20/12 Recorde d 1Result Comment: influenza at [facility] 2Location History: [facility] 3Location History: [facility] 4Result Comment: [06/19/2016] [facility] 5Result Comment: [06/19/2016] [facility] 6Early/Late Reason: Other : 7Result Comment: [06/19/2016] [facility] 8Result Comment: [06/19/2016] [facility] 9Result Comment: [06/19/2016] [facility] 10Result Comment: [06/19/2016] [facility] Medications albuterol 0.083% inhalation solution 3 mL, Inhalation, Every 6 hours, USE ACAPELLA DEVICE AFTER EVERY TREATMENT., # 360 mL, 5 Refills, [facility] #[id number], 151, cm, 09/29/21 13:12:00 EDT, Height, 61.69, kg, 09/29/21 13:11:00 EDT, Dry Weight Start Date: 11/13/21 Status: Ordered bisoprolol 5 mg oral tablet See Instructions, TAKE 1/2 TABLET DAILY, # 45 tablet, 1 Refills, Maintenance, 09/04/22 16:11:00 EDT, [facility], 150, cm, 08/28/22 9:37:00 EDT, Height, 61, kg, 04/17/22 11:31:00 EST, Dry Weight Start Date: 09/04/22 Status: Ordered clopidogrel 75 mg oral tablet 1, tablet, By Mouth, Daily, # 90 Unknown, Refills 0, Tot. Refills 0, Maintenance, 10/19/22 15:23:00EDT, Route to Pharmacy Electronically, [facility], 150, cm, 08/28/22 9:37:00 EDT, Height, 61, kg, 04/17/22 11:31:00 EST, Dry Weight Start Date: 10/19/22 Status: Ordered Lasix 40 mg oral tablet 1, tablet, By Mouth, Daily, # 90 Unknown, Refills 3, Route to Pharmacy Electronically, [facility], 151, cm, 09/29/21 13:12:00 EDT, Height, 61.69, kg, 09/29/21 13:11:00 EDT, Dry Weight Start Date: 11/05/21 Status: Ordered losartan 25 mg oral tablet See Instructions, TAKE 1/2 TABLET DAILY, # 45 tablet, 1 Refills, Maintenance, 09/04/22 16:13:00 EDT, [facility], 150, cm, 08/28/22 9:37:00 [...] 12/22/22 10:35:00 EDT, Route to Pharmacy Electronically, [facility] #[id number], Partial fill upon patient req... Start Date: 12/22/22 Status: Ordered ProAir HFA 90 mcg/inh inhalation aerosol with adapter 2, puffs, Inhalation, 4 times a day, PRN, # 1 each, Refills 5, Tot. Refills 5, Maintenance, 10/17/21 15:25:00 EDT, Route to Pharmacy Electronically, [id number], [facility] #[id number], 151, cm, 09/29/21 13:12:00 EDT, Hei... Start [...] mL, 0 Refills, Maintenance, 11/27/22 15:51:00 EDT, [facility] #[id number], 12, USE 4 ML VIA NEBULIZER TWICE DAILY USE WITH 0.... Start Date: 11/27/22 Status: Ordered traMADol 50 mg oral tablet 1 tablet = 50 mg, By Mouth, Every 12 hours, PRN for pain, # 30 tablet, 2 Refills, Acute 01/21/23 12:24:00 EDT, 11/20/22 12:24:00 EDT, Tablet, [facility] #[id number], Partial fill upon patient request if the prescription is for a schedule II opioi... Start Date: 11/20/22 Stop Date: 01/21/23 Status: Ordered Trelegy Ellipta 200 mcg-62.5 mcg-25 mcg/inh inhalation powder 1 puffs, Inhalation, Daily, at the same time every day, j44.9, # 1 each, 6 Refills, Maintenance, 10/14/22 11:12:00 EDT, Powder, [facility] #[id number], Partial fill upon patient request if the [...] pulmonary artery branch probably reflecting chronic thrombus.. 08679-Atmzljdej as lung mass. S/P R-CHOP x 6 cycles. Vital Signs Most recent to oldest [Reference Range]: 1 Height 151 cm (02/08/19 4:03 PM) Weight 63 kg (02/08/19 4:03 PM) Social History Social History Type Response Smoking Status Former smoker entered on: 09/06/14 Sex Cardiology * Event Display: EKG Non Authored Date: Radiology * Event Display: X-Ray Chest, Non- BH Authored Date: * Event Display: X-Ray Chest, Non- BH Authored Date: * Event Display: Non Radiology Results Authored Date: Patient Care team information Care Team Personnel Name: Francoise Black RN Position: [facility] RN Member Role: Primary Care Nurse Name: Chiqui Stoll RN Position: S RN Member Role: Primary Care Nurse Name: Robert eFliz MD Position: [facility] Physician - Primary Care Member Role: PCP Address: Address: [address] [place] [address]- Care Team Related Persons Name: PARENTRAMIRO Address: home [address] [place] [phone]
--- OUTSIDE RECORDS SUMMARY | 2023-08-31 08:16 | XMS_ITS | Continuity of Care Document ---
Author Organization [facility] Address [address] [place] [address]- Care Team Providers Care Farm Equipment Engineer Name Role Phone Tray BROWN, Robert Anthony Primary Care Physician [place] [facility] 11/19/21 - 12/19/21 [facility] [address] [place] [address]- Allergies, Adverse Reactions, Alerts Substance Reaction Severity Status codeine Active tetanus toxoid Active sulfa drugs Active Immunizations Given and Recorded Vaccine Date Status Refusal Reason SARS-CoV-2 mRNA (npffchv-yndn-vcvus) vax 08/06/21 Recorded SARS-CoV-2 (COVID-19) mRNA BNT-162b2 [...] vaccine 9 06/20/12 Recorded 1Location History: [facility] 2Location History: [facility] 3Result Comment: [06/19/2016] [facility] 4Result Comment: [06/19/2016] [facility] 5Early/Late Reason: Other : 6Result Comment: [06/19/2016] [facility] 7Result Comment: [06/19/2016] [facility] 8Result Comment: [06/19/2016] [facility] 9Result Comment: [06/19/2016] [facility] Medications albuterol 0.083% inhalation solution 3 mL, Inhalation, Every 6 hours, USE ACAPELLA DEVICE AFTER EVERY TREATMENT., # 360 mL, 5 Refills, [facility] #[id number], 151, cm, 09/29/21 13:12:00 EDT, Height, 61.69, [...] Unknown, Refills 3, Route to Pharmacy Electronically, [facility], 151, cm, 09/29/21 13:12:00 EDT, Height, 61.69, kg, 09/29/21 13:11:00 EDT, Dry Weight Start Date: 11/05/21 Status: Ordered Hyper-Don 7% inhalation solution 4 mL = 0.28 Gm, Neb, 2 times a day, take with 0.5ml = 2.5 mg albuterol (add hypersal 4ml to 0.5ml albuterol) twice a day J47.0, # 720 mL, 1 Refills, Maintenance, 07/28/22 9:58:00 EDT, [facility] #[id number], J47.0 bronchiectasis, 4 mL Neb 2 times... Start Date: 07/28/22 Status: Ordered Lasix 40 mg oral tablet 1, tablet, By Mouth, Daily, # 90 Unknown, Refills 3, [facility], [facility], 151, cm, 09/29/21 13:12:00 EDT, Height, 61.69, kg, 09/29/21 13:11:00 EDT, Dry Weight Start Date: 11/05/21 Status: Ordered losartan 25 mg oral tablet 12.5 mg, 0.5, tablet, By Mouth, Daily, Take 0.5 tablet (12.5mg) daily, # 45 tablet, Refills 3, Tot.Refills 3, Maintenance, 06/12/21 13:52:00 EST, Route to Pharmacy Electronically, [facility], 151, cm, 06/11/21 13:48:00 EST, Height [...] 10/17/21 15:25:00 EDT, Route to Pharmacy Electronically, [id number], [facility] #[id number], 151, cm, 09/29/21 13:12:00 EDT, Hei... Start Date: 10/17/21 Status: Ordered Sodium Chloride, Inhalation 0.9% inhalation solution 4 mL = 0.036 Gm, Neb, 2 times a day, use with 0.5% albuterol solution together in nebulizer, # 240 mL, 6 Refills, Maintenance, 06/12/21 19:39:00 EST, [facility] #[id number], Partial fill upon patient request if the [...] 1-49% stenosis; LICA 1-49% stenosis 4Ad[place] [facility] [place]2020. Cardiac MRI: LVEF 44%; 12/16/20 echo at [facility]: LVEF=40-45% 56077-Ynkpvzmqu as lung mass. S/P R-CHOP x 6 cycles. Social History Social History Type Response Smoking Status Former smoker entered on: 09/06/14 Sex Care Team Personnel Name: Robert Feliz MD Address: [address] [place] [phone]- [place]
--- OUTSIDE RECORDS SUMMARY | 2023-08-31 08:16 | XMS_ITS | Continuity of Care Document ---
Author Organization [facility] Address [address] [place] [address]- Care Team Providers Care Rabbit Fancier Name Role Phone Tray BROWN, Robert Anthony Primary Care Physician [place] [facility] Date(s): 11/14/21 - 12/14/21 [facility] Adult [address] [place] [address]- Allergies, Adverse Reactions, Alerts Substance Reaction Severity Status codeine Active tetanus toxoid Active sulfa drugs Active Immunizations Given and Recorded Vaccine Date Status Refusal Reason SARS-CoV-2 mRNA (pdkfzvy-utsx-exhnp) vax 08/06/21 Recorded SARS-CoV-2 (COVID-19) mRNA BNT-162b2 [...] EVERY TREATMENT., # 360 mL, 5 Refills, [facility] #[id number], 151, cm, 09/29/21 13:12:00 EDT, Height, 61.69, kg, 09/29/21 13:11:00 EDT, Dry Weight Start Date: 11/13/21 Status: Ordered albuterol 0.083% inhalation solution 3 mL, Inhalation, Every 6 hours, USE ACAPELLA DEVICE AFTER EVERY TREATMENT., # 360 mL, 0 Refills, [facility] #[id number], 151, cm, 06/11/21 13:48:00 EST, Height Start Date: 08/18/21 Status: Ordered albuterol 5 mg/mL (0.5%) inhalation solution 0.5 mL = 2.5 mg, Inhalation, Every 6 hours, PRN for wheezing, # 20 mL, 11 Refills, Maintenance, 08/26/21 14:10:00 EDT, Solution, [facility] #[id number], Partial fill upon patient request if the prescription is for a schedule II opioid drug., 151,... Start Date: 08/26/21 Status: Ordered amoxicillin 500 mg oral capsule 4 capsule = 2,000 mg, By Mouth, Once, take 4 capsules prior to dental procedure, # 4 capsule, 5 Refills, Soft Stop, 05/06/21 17:27:00 EST, [facility] #[id number], 151, cm, 05/05/21 12:08:00 EST,Height Start Date: [...] 3 Refills, Maintenance, 06/12/21 13:52:00 EST, Tablet, [facility], 151, cm, 06/11/21 13:48:00 EST, Height Start Date: 06/12/21 Stop Date: 06/07/22 Status: Ordered clopidogrel 75 mg oral tablet 1, tablet, By Mouth, Daily, # 90 Unknown, Refills 3, Route to Pharmacy Electronically, [facility], 151, cm, 09/29/21 13:12:00 EDT, Height, 61.69, kg, 09/29/21 13:11:00 EDT, Dry Weight Start Date: 11/05/21 Status: Ordered Hyper-Don 7% inhalation solution 4 mL = 0.28 Gm, Neb, 2 times a day, take with 0.5ml = 2.5 mg albuterol (add hypersal 4ml to 0.5ml albuterol) twice a day J47.0, # 720 mL, 1 Refills, Maintenance, 07/28/22 9:58:00 EDT, [facility] #[id number], J47.0 bronchiectasis, 4 mL Neb 2 times... Start Date: 07/28/22 Status: Ordered Hyper-Don 7% inhalation solution 4 mL = 0.28 Gm, Neb, 2 times a day, take with 0.5ml = 2.5 mg albuterol (add hypersal 4ml to 0.5ml albuterol) twice a day, # 720 mL, 1 Refills, Hard Stop 07/28/22 9:58:00 EDT, 08/02/21 9:58:00 EDT, [facility], J47.0 bronchiectasis, 151, cm,... Start [...] Unknown, Refills 3, Route to Pharmacy Electronically, [facility], 151, cm, 09/29/21 13:12:00 EDT, Height, 61.69, kg, 09/29/21 13:11:00 EDT, Dry Weight Start Date: 11/05/21 Status: Ordered losartan 25 mg oral tablet 12.5 mg, 0.5, tablet, By Mouth, Daily, Take 0.5 tablet (12.5mg) daily, # 45 tablet, Refills 3, Tot.Refills 3, Maintenance, 06/12/21 13:52:00 EST, Route to Pharmacy Electronically, [facility], 151, cm, 06/11/21 13:48:00 EST, Height [...] 10/17/21 15:25:00 EDT, Route to Pharmacy Electronically, [id number], [facility] #[id number], 151, cm, 09/29/21 13:12:00 EDT, Hei... Start Date: 10/17/21 Status: Ordered Sodium Chloride, Inhalation 0.9% inhalation solution 4 mL = 0.036 Gm, Neb, 2 times a day, use with 0.5% albuterol solution together in nebulizer, # 240 mL, 6 Refills, Maintenance, 06/12/21 19:39:00 EST, [facility] #[id number], Partial fill upon patient request if the [...] at [facility]: LVEF=40-45% 43542-Bocshrovj as lung mass. S/P R-CHOP x 6 cycles. Social History Social History Type Response Smoking Status Former smoker entered on: 09/06/14 Sex
--- OUTSIDE RECORDS SUMMARY | 2023-08-31 08:16 | XMS_ITS | Continuity of Care Document ---
Author Organization [facility] Address [address] [address]- Care Team Providers Care Copyright Clerk Name Role Phone Tray BROWN, Robert Anthony Primary Care Physician [phone] Encounter [facility] [place] Date(s): 03/01/23 - 03/31/23 [facility] [address] [address]- Allergies, Adverse Reactions, Alerts Substance Reaction Severity Status codeine Active Fish Active tetanus toxoid Active sulfa drugs Active Immunizations Given and Recorded Vaccine Date Status Refusal Reason [id number]-QfH-2jTGF 12y+ bivalent booster vax 08/15/22 Recorded Influenza Virus Vaccine (oldterm) 1 02/03/22 Recor ded SARS-CoV-2 mRNA (expmbuk-kwvg-vsqkk) vax 08/06/21 Recorded SARS-CoV-2 (COVID-19) mRNA BNT-162b2 [...] 06/20/12 [facility] 1Result Comment: influenza at [facility] [...] 360 mL, 5 Refills, 01/18/23 8:59:00 EDT, [facility] #53219, J44.9, 150, cm, 01/11/23 10:59:00 EDT, Height, 61, kg, 04/17/22 11:31:00 EST, Dry Weight Start Date: 01/18/23 Status: Ordered bisoprolol 5 mg oral tablet See Instructions, TAKE 1/2 TABLET DAILY, # 45 Unknown, 0 Refills, Maintenance, 02/22/23 7:49:00 EDT, [facility], 150, cm, 01/11/23 10:59:00 EDT, Height, 61, kg, 04/17/22 11:31:00 EST, Dry Weight Start Date: 02/22/23 Status: Ordered clopidogrel 75 mg oral tablet See Instructions, TAKE 1 TABLET DAILY, # 90 Unknown, Refills 0, Maintenance, 02/22/23 7:49:00 EDT, Instructions Replace Required Details, Route to Pharmacy Electronically, [facility], 150, cm, 01/11/23 10:59:00 EDT, Height, [...] 10/17/21 15:25:00 EDT, Route to Pharmacy Electronically, [id number], [facility] #[id number], 151, cm, 09/29/21 13:12:00 EDT, Hei... Start [...] mL, 5 Refills, Maintenance, 02/11/23 9:46:00 EDT, [facility] #[id number], USE 4 ML VIANEBULIZER TWICE DAILY USE [...] chart review meeting GFR criteria 6Admission to [facility] [place] 11/2020. Cardiac MRI: LVEF 44%; 12/16/20 echo at [facility]: LVEF=40-45% 8Per CT w/contrast 12/19/2021: Irregular partially calcified tissue along the distal left main pulmonary artery extending along the regular small caliber left lower lobe pulmonary artery branch probably reflecting chronic thrombus.. 50255-Uhwqnzrsz as lung mass. S/P R-CHOP x 6 cycles. Social History Social History Type Response Smoking Status Former smoker entered on: 09/06/14 Sex Patient Care team information Care Team Personnel Name: Manuel Mayes MD Position: [facility] Physician - Pulm/Critical Care Member Role: Geographic Information Systems Analyst Address: Address: [address] [place] [address] [address] [place] [address]- Name: Kenneth Chowdary MD Position: [facility] Cardiology MD Member Role: Cell Attendant Helper Address: Address: [address] [place] [address] [address] [place] [address]- [place] Name: Robert Feliz MD Position: [facility] Physician - Primary Care Member Role: PCP Address: Address: [address] [place] [address]- [place] Name: Georgette Silva Position: [facility] Cotton Grower Member Role: Director Style Name: Epi Turner Member Role: Neurologist Name: Mariposa BROWN, Zi Méndez Position: Reference Physician Member Role: Stacker Driver Address: Address: [address] [place] [address] [address] [facility] [place] [place] [address]- [place] Care Team Related Persons Name: RAMIRO MARR Address: home [address] [place] [id number]
--- OUTSIDE RECORDS SUMMARY | 2023-08-31 08:16 | XMS_ITS | Continuity of Care Document ---
Author Organization [facility] Address [address] [place] [address]- Care Team Providers Care Open Hearth Helper Name Role Phone Tray BROWN, Robert Anthony Primary Care Physician [phone] Encounter [facility] [place] Date(s): 04/08/22 - 05/08/22 [facility] [address] [place] [address] Allergies, Adverse Reactions, Alerts Substance Reaction Severity Status codeine Active tetanus toxoid Active sulfa drugs Active Immunizations Given and Recorded Vaccine Date Status Refusal Reason Influenza Virus Vaccine (oldterm) 1 02/03/22 Recor ded SARS-CoV-2 mRNA (qwxbpxc-pdzr-qznos) vax 08/06/21 Recorded SARS-CoV-2 (COVID-19) mRNA BNT-162b2 [...] 06/20/12 Recorde d 1Result Comment: [facility] [...] EVERY TREATMENT., # 360 mL, 5 Refills, [facility] #[id number], 151, cm, 09/29/21 13:12:00 EDT, Height, 61.69, [...] 10/17/21 15:25:00 EDT, Route to Pharmacy Electronically, [id number], [facility] #[id number], 151, cm, 09/29/21 13:12:00 EDT, Hei... Start Date: 10/17/21 Status: Ordered Sodium Chloride, Inhalation 0.9% inhalation solution See Instructions, USE 4 ML VIA NEBULIZER TWICE DAILY USE WITH 0.5% VIA INHALER SOLUTION TOGETHER INVIA NEBULIZER, # 300 mL, 0 Refills, Maintenance, 04/28/22 9:38:00 EST, [facility] #[id number],25, USE 4 ML VIA NEBULIZER TWICE DAILY [...] review meeting GFR criteria 5Admission to [facility] [place] 11/2020. Cardiac MRI: LVEF 44%; 12/16/20 echo at [facility] [place]: LVEF=40-45% 95058-Ejwostnnp as lung mass. S/P R-CHOP x 6 cycles. Social History Social History Type Response Smoking Status Former smoker entered on: 09/06/14 Sex Patient Care team information Care Team Personnel Name: Francoise Black RN Position: [facility] RN Member Role: Primary Care Nurse Name: Chiqui Stoll RN Position: S RN Member Role: Primary Care Nurse Name: Robert Feliz MD Position: [facility] Primary Care Physician Member Role: PCP Address: Address: [address] [place] [address]- Care Team Related Persons Name: RAMIRO MARR Address: home [address] [place] [phone]
--- OUTSIDE RECORDS SUMMARY | 2023-08-31 08:16 | XMS_ITS | Continuity of Care Document ---
Author Organization [facility] Address [address] [address]- Care Team Providers Care Business Analyst Consultant Name Role Phone Tray BROWN, Robert Anthony Primary Care Physician Encounter [facility] [place] Date(s): 02/11/23 - 03/13/23 [facility] [address] [address]- Allergies, Adverse Reactions, Alerts Substance Reaction Severity Status codeine Active Fish Active tetanus toxoid Active sulfa drugs Active Immunizations Given and Recorded Vaccine Date Status Refusal Reason NNTW-ZuT-1cNYZ 12y+ bivalent booster vax 08/15/22 Recorded Influenza Virus Vaccine (oldterm) 1 02/03/22 Recor ded SARS-CoV-2 mRNA (vwquvsv-wnvw-kxvez) vax 08/06/21 Recorded SARS-CoV-2 (COVID-19) mRNA BNT-162b2 [...] 06/20/12 [facility] monica 1Result Comment: influenza at [facility] 2Location History: [facility] [...] 360 mL, 5 Refills, 01/18/23 8:59:00 EDT, [facility] #21478, J44.9, 150, cm, 01/11/23 10:59:00 EDT, Height, 61, kg, 04/17/22 11:31:00 EST, Dry Weight Start Date: 01/18/23 Status: Ordered bisoprolol 5 mg oral tablet See Instructions, TAKE 1/2 TABLET DAILY, # 45 Unknown, 0 Refills, Maintenance, 02/22/23 7:49:00 EDT, [facility], 150, cm, 01/11/23 10:59:00 EDT, Height, 61, kg, 04/17/22 11:31:00 EST, Dry Weight Start Date: 02/22/23 Status: Ordered clopidogrel 75 mg oral tablet See Instructions, TAKE 1 TABLET DAILY, # 90 Unknown, Refills 0, Maintenance, 02/22/23 7:49:00 EDT, Instructions Replace Required Details, Route to Pharmacy Electronically, [facility], 150, cm, 01/11/23 10:59:00 EDT, Height, [...] 10/17/21 15:25:00 EDT, Route to Pharmacy Electronically, [id number], [facility] #[id number], 151, cm, 09/29/21 13:12:00 EDT, Hei... Start [...] mL, 5 Refills, Maintenance, 02/11/23 9:46:00 EDT, [facility] #[id number], USE 4 ML VIANEBULIZER TWICE DAILY USE [...] chart review meeting GFR criteria 6[place] [facility] [place]. Cardiac MRI: LVEF 44%; 12/16/20 echo [place] [facility] [place] [place]: LVEF=40-45% 8Per CT w/contrast 12/19/2021: Irregular partially calcified tissue along the distal left main pulmonary artery extending along the regular small caliber left lower lobe pulmonary artery branch probably reflecting chronic thrombus.. 89092-Yeqqeqven as lung mass. S/P R-CHOP x 6 cycles. Social History Social History Type Response Smoking Status Former smoker entered on: 09/06/14 Sex Patient Care team information Care Team Personnel Name: Manuel Mayes MD Position: [facility] Physician - Pulm/Critical Care Member Role: Senior Qa Tester Address: Address: [address] [place] [address] [address] [place] [address]- Name: Kenneth Chowdary MD Position: [facility] Cardiology MD Member Role: Lead Sewage Plant Operator Address: Address: [address] [place] [address] [address] [place] [address]- [place] Name: Robert Feliz MD Position: [facility] Physician - Primary Care Member Role: PCP Address: Address: [address] [place] [address]- [place] Name: Georgette Silva Position: [facility] Die Cutter Apprentice Member Role: Boatswains Mate Name: Epi Turner Member Role: Neurologist Name: Mariposa BROWN, Zi Méndez Position: Reference Physician Member Role: Medical Data Entry Clerk Address: Address: [address] [place] [address] [address] [facility] [place] [address]- [place] Care Team Related Persons Name: RAMIRO MARR Address: home [address] [place] [address]
--- OUTSIDE RECORDS SUMMARY | 2023-08-31 08:16 | XMS_ITS | Continuity of Care Document ---
Author Organization [facility] Address [address] [place] [address]- Care Team Providers Care Superintendent Construction Name Role Phone Tray BROWN, Robert Anthony Primary Care Physician Encounter [facility] Date(s): 09/29/22 - 10/29/22 [facility] [address] [place] [address]- Attending Physician: Adithya Sheth Admitting Physician: Adithya Sheth Referring Physician: AdmtrAdithya Allergies, Adverse Reactions, Alerts Substance Reaction Severity Status codeine Active tetanus toxoid Active sulfa drugs Active Fish Active Immunizations Given and Recorded Vaccine Date Status Refusal Reason [id number] 12y+ bivalent booster vax 08/15/22 Recorded Influenza Virus Vaccine (oldterm) 1 02/03/22 Recor ded SARS-CoV-2 mRNA (xudvdkn-azre-ndbej) vax 08/06/21 Recorded SARS-CoV-2 (COVID-19) mRNA BNT-162b2 [...] d 1Result Comment: influenza at [facility] 2Location History: [facility] 3Location History: [facility] 4Result Comment: [06/19/2016] [facility] 5Result Comment: [06/19/2016] [facility] 6Early/Late Reason: Other : 7Result Comment: [06/19/2016] [facility] 8Result Comment: [06/19/2016] [facility] 9Result Comment: [06/19/2016] [facility] 10Result Comment: [06/19/2016] [facility] Medications albuterol 0.083% inhalation solution 3 mL, Inhalation, Every 6 hours, USE ACAPELLA DEVICE AFTER EVERY TREATMENT., # 360 mL, 5 Refills, [facility] #[id number], 151, cm, 09/29/21 13:12:00 EDT, Height, 61.69, kg, 09/29/21 13:11:00 EDT, Dry Weight Start Date: 11/13/21 Status: Ordered bisoprolol 5 mg oral tablet See Instructions, TAKE 1/2 TABLET DAILY, # 45 tablet, 1 Refills, Maintenance, 09/04/22 16:11:00 EDT, [facility], 150, cm, 08/28/22 9:37:00 EDT, Height, 61, kg, 04/17/22 11:31:00 EST, Dry Weight Start Date: 09/04/22 Status: Ordered clopidogrel 75 mg oral tablet 1, tablet, By Mouth, Daily, # 90 Unknown, Refills 0, Tot. Refills 0, Maintenance, 10/19/22 15:23:00EDT, [facility] to [facility] Electronically, [facility], 150, cm, 08/28/22 9:37:00 EDT, [...] Unknown, Refills 3, Route to Pharmacy Electronically, [facility], 151, cm, 09/29/21 13:12:00 EDT, Height, 61.69, kg, 09/29/21 13:11:00 EDT, Dry Weight Start Date: 11/05/21 Status: Ordered losartan 25 mg oral tablet See Instructions, TAKE 1/2 TABLET DAILY, # 45 tablet, 1 Refills, Maintenance, 09/04/22 16:13:00 EDT, [facility], 150, cm, 08/28/22 9:37:00 EDT, [...] 10/17/21 15:25:00 EDT, Route to Pharmacy Electronically, [id number], [facility] #[id number], 151, cm, 09/29/21 13:12:00 EDT, Hei... Start Date: 10/17/21 Status: Ordered Sodium Chloride, Inhalation 0.9% inhalation solution See Instructions, USE 4 ML VIA NEBULIZER TWICE DAILY USE WITH 0.5% VIA INHALER SOLUTION TOGETHER INVIA NEBULIZER, # 300 mL, 0 Refills, Maintenance, 04/28/22 9:38:00 EST, [facility] #[id number],25, USE 4 ML VIA NEBULIZER TWICE DAILY USE WITH 0.5... Start Date: 04/28/22 Status: Ordered Trelegy Ellipta 200 mcg-62.5 mcg-25 mcg/inh inhalation powder 1 puffs, Inhalation, Daily, at the same time every day, j44.9, # 1 each, 6 Refills, Maintenance, 10/14/22 11:12:00 EDT, Powder, [facility] #[id number], Partial fill upon patient request if the [...] chart review meeting GFR criteria 6[place] [facility] [place]. Cardiac MRI: LVEF 44%; 12/16/20 [place] [facility]: LVEF=40-45% 8Per CT w/contrast 12/19/2021: Irregular partially calcified tissue along the distal left main pulmonary artery extending along the regular small caliber left lower lobe pulmonary artery branch probably reflecting chronic thrombus.. 98191-Muniewlyj as lung mass. S/P R-CHOP x 6 cycles. Social History Social History Type Response Smoking Status Former smoker entered on: 09/06/14 Sex Patient Care team information Care Team Personnel Name: Francoise Black RN Position: [facility] RN Member Role: Primary Care Nurse Name: Chiqui Stoll RN Position: S RN Member Role: Primary Care Nurse Name: Robert Feliz MD Position: S Physician - Primary Care Member Role: PCP Address: Address: [address] [place] [address]- Care Team Related Persons Name: RAMIRO MARR Address: home [address] [place] [address]
--- OUTSIDE RECORDS SUMMARY | 2023-08-31 08:16 | XMS_ITS | Continuity of Care Document ---
Author Organization [facility] Address [address] [address]- Care Team Providers Care Refining Equipment Operator Name Role Phone Tray BROWN, Robert Anthony Primary Care Physician [phone] Encounter [facility] Date(s): 01/02/21 - 02/01/21 [place] [address]- Attending Physician: Adithya Sheth Admitting Physician: Adithya [...] 3 Refills, Maintenance, 06/27/20 15:48:00 EST, Solution, [facility] #[id number], 151, cm, 02/05/20 7:35:00 EDT, Height Start Date: 06/27/20 Status: Ordered amoxicillin 500 mg oral capsule 4 capsule = 2,000 mg, By Mouth, Once, take 4 capsules prior to dental procedure, # 4 capsule, 0 Refills, Soft Stop, 08/15/20 16:35:00 EDT, [facility] #75261, 151, cm, 02/05/20 7:35:00 EDT, Height Start Date: 08/15/20 Status: Ordered Hyper-Don 7% inhalation solution 4 mL = 0.28 Gm, Neb, 2 times a day, take with 0.5ml = 2.5 mg albuterol (add hypersal 4ml to 0.5ml albuterol) twice a day, # 240 mL, 11 Refills, Maintenance, 08/07/20 9:58:00 EDT, [facility]#67525, J47.0 bronchiectasis, 4 mL Neb 2 times a da... Start Date: 08/07/20 Stop Date: 08/02/21 Status: Ordered Lasix 40 mg oral tablet 40 mg, 1, tablet, By Mouth, Daily, prescribed by [facility] doctor 12/18/20, # 30 tablet, Refills 2, Tot. Refills 2, Maintenance, 01/10/21 13:42:00 EDT, Route to Pharmacy Electronically, [facility] #[id number], Partial fill upon patient request if th... Start Date: 01/10/21 Status: Ordered meloxicam 7.5 mg oral tablet 1 tablet, By Mouth, Daily, # 90 tablet, 0 Refills, [facility] #37226, 151, cm, 12/27/20 8:19:00 EDT, Height Start [...] 01/10/21 13:45:00 EDT, Route to Pharmacy Electronically, [facility] #[id number], Partial fill upon patientrequest if the prescription is for a schedule II op... Start Date: 01/10/21 Status: Ordered ProAir HFA 90 mcg/inh inhalation aerosol with adapter 2, puffs, Inhalation, 4 times a day, PRN, # 1 each, Refills 6, Tot. Refills 6, Maintenance, 08/26/20 14:10:00 EDT, Route to Pharmacy Electronically, [id number], [facility] #[id number], 151, cm, 08/26/20 13:26:00 EDT, Height Start Date: 08/26/20 Status: Ordered Trelegy Ellipta 200 mcg-62.5 mcg-25 mcg/inh inhalation powder 1 puffs, Inhalation, Daily, at the same time every day, # 1 each, 6 Refills, Maintenance, 12/06/20 9:31:00 EDT, Powder, [facility] #[id number], Partial fill upon patient request if the [...]
--- OUTSIDE RECORDS SUMMARY | 2023-08-31 08:16 | XMS_ITS | Continuity of Care Document ---
Author Organization [facility] Address [address] [place] [address]- Care Team Providers Care Shipping And Receiving Associate Name Role Phone Tray BROWN, Robert Anthony Primary Care Physician Encounter [facility] [place] Date(s): 09/03/22 - 10/03/22 [facility] [address] [place] [address]- [place] Allergies, Adverse Reactions, Alerts Substance Reaction Severity Status codeine Active tetanus toxoid Active sulfa drugs Active Fish Active Immunizations Given and Recorded Vaccine Date Status Refusal Reason [id number] 12y+ bivalent booster vax 08/15/22 Recorded Influenza Virus Vaccine (oldterm) 1 02/03/22 Recor ded SARS-CoV-2 mRNA (frsojwo-enol-afmmx) vax 08/06/21 Recorded SARS-CoV-2 (COVID-19) mRNA BNT-162b2 [...] 06/20/12 Recorde d 1Result Comment: influenza at [facility] 2Location History: [facility] 3Location History: [facility] 4Result Comment: [06/19/2016] [facility] 5Result Comment: [06/19/2016] [facility] 6Early/Late Reason: Other : 7Result Comment: [06/19/2016] [facility] 8Result Comment: [06/19/2016] [facility] 9Result Comment: [06/19/2016] [facility] 10Result Comment: [06/19/2016] [facility] Medications albuterol 0.083% inhalation solution 3 mL, Inhalation, Every 6 hours, USE ACAPELLA DEVICE AFTER EVERY TREATMENT., # 360 mL, 5 Refills, [facility] #[id number], 151, cm, 09/29/21 13:12:00 EDT, Height, 61.69, kg, 09/29/21 13:11:00 EDT, Dry Weight Start Date: 11/13/21 Status: Ordered bisoprolol 5 mg oral tablet See Instructions, TAKE 1/2 TABLET DAILY, # 45 tablet, 1 Refills, Maintenance, 09/04/22 16:11:00 EDT, [facility], 150, cm, 08/28/22 9:37:00 EDT, Height, 61, kg, 04/17/22 11:31:00 EST, Dry Weight Start Date: 09/04/22 Status: Ordered clopidogrel 75 mg oral tablet 1, tablet, By Mouth, Daily, # 90 Unknown, Refills 0, Maintenance, 09/01/22 10:17:00 EDT, Route to Pharmacy Electronically, [facility], 150, cm, 08/28/22 9:37:00 EDT, Height, [...] Unknown, Refills 3, [facility]acy Electronically, [facility], 151, cm, 09/29/21 13:12:00 EDT, Height, 61.69, kg, 09/29/21 13:11:00 EDT, Dry Weight Start Date: 11/05/21 Status: Ordered losartan 25 mg oral tablet See Instructions, TAKE 1/2 TABLET DAILY, # 45 tablet, 1 Refills, Maintenance, 09/04/22 16:13:00 EDT, [facility], 150, cm, 08/28/22 9:37:00 EDT, [...] 10/17/21 15:25:00 EDT, Route to Pharmacy Electronically, [id number], [facility] #[id number], 151, cm, 09/29/21 13:12:00 EDT, Hei... Start Date: 10/17/21 Status: Ordered Sodium Chloride, Inhalation 0.9% inhalation solution See Instructions, USE 4 ML VIA NEBULIZER TWICE DAILY USE WITH 0.5% VIA INHALER SOLUTION TOGETHER INVIA NEBULIZER, # 300 mL, 0 Refills, Maintenance, 04/28/22 9:38:00 EST, [facility] #[id number],25, USE 4 ML VIA NEBULIZER TWICE DAILY [...] chart review meeting GFR criteria 6Admission to [facility] for CHF 11/2020. Cardiac MRI: LVEF 44%; 12/16/20 echo at [facility]: LVEF=40-45% 8Per CT w/contrast 12/19/2021: Irregular partially calcified tissue along the distal left main pulmonary artery extending along the regular small caliber left lower lobe pulmonary artery branch probably reflecting chronic thrombus.. [id number]-Vpecazlzr as lung mass. S/P R-CHOP x 6 cycles. Social History Social History Type Response Smoking Status Former smoker entered on: 09/06/14 Sex Patient Care team information Care Team Personnel Name: Francoise Black RN Position: [facility] RN Member Role: Primary Care Nurse Name: Chiqui Stoll RN Position: S RN Member Role: Primary Care Nurse Name: Tray BROWN, Robert Anthony Position: [facility] Physician - Primary Care Member Role: PCP Address: Address: [address] [place] [address]- Care Team Related Persons Name: RAMIRO MARR Address: home [address] [place] [address]
--- OUTSIDE RECORDS SUMMARY | 2023-08-31 08:16 | XMS_ITS | Continuity of Care Document ---
Author Organization [facility] Address [address] [place] [address]- Care Team Providers Care Carbide Powder Processor Name Role Phone Tray BROWN, Robert Anthony Primary Care Physician [phone] Encounter [facility] Date(s): 11/03/21 - 12/03/21 [facility] [address] [place] [address] Allergies, Adverse Reactions, Alerts Substance Reaction Severity Status codeine Active tetanus toxoid Active sulfa drugs Active Immunizations Given and Recorded Vaccine Date Status Refusal Reason SARS-CoV-2 mRNA (wzfyrrk-xisc-vwurh) vax 08/06/21 Recorded SARS-CoV-2 (COVID-19) mRNA BNT-162b2 [...] EVERY TREATMENT., # 360 mL, 5 Refills, [facility] #[id number], 151, cm, 09/29/21 13:12:00 EDT, Height, 61.69, kg, 09/29/21 13:11:00 EDT, Dry Weight Start Date: 11/13/21 Status: Ordered albuterol 0.083% inhalation solution 3 mL, Inhalation, Every 6 hours, USE ACAPELLA DEVICE AFTER EVERY TREATMENT., # 360 mL, 0 Refills, [facility] #[id number], 151, cm, 06/11/21 13:48:00 EST, Height Start Date: 08/18/21 Status: Ordered albuterol 5 mg/mL (0.5%) inhalation solution 0.5 mL = 2.5 mg, Inhalation, Every 6 hours, PRN for wheezing, # 20 mL, 11 Refills, Maintenance, 08/26/21 14:10:00 EDT, Solution, [facility] #[id number], Partial fill upon patient request if the prescription is for a schedule II opioid drug., 151,... Start Date: 08/26/21 Status: Ordered amoxicillin 500 mg oral capsule 4 capsule = 2,000 mg, By Mouth, Once, take 4 capsules prior to dental procedure, # 4 capsule, 5 Refills, Soft Stop, 05/06/21 17:27:00 EST, [facility] #[id number], 151, cm, 05/05/21 12:08:00 EST,Height Start Date: [...] 3 Refills, Maintenance, 06/12/21 13:52:00 EST, Tablet, [facility], 151, cm, 06/11/21 13:48:00 EST, Height Start Date: 06/12/21 Stop Date: 06/07/22 Status: Ordered clopidogrel 75 mg oral tablet 1, tablet, By Mouth, Daily, # 90 Unknown, Refills 3, Route to Pharmacy Electronically, [facility], 151, cm, 09/29/21 13:12:00 EDT, Height, 61.69, kg, 09/29/21 13:11:00 EDT, Dry Weight Start Date: 11/05/21 Status: Ordered Hyper-Don 7% inhalation solution 4 mL = 0.28 Gm, Neb, 2 times a day, take with 0.5ml = 2.5 mg albuterol (add hypersal 4ml to 0.5ml albuterol) twice a day J47.0, # 720 mL, 1 Refills, Maintenance, 07/28/22 9:58:00 EDT, [facility] #[id number], J47.0 bronchiectasis, 4 mL Neb 2 times... Start Date: 07/28/22 Status: Ordered Hyper-Don 7% inhalation solution 4 mL = 0.28 Gm, Neb, 2 times a day, take with 0.5ml = 2.5 mg albuterol (add hypersal 4ml to 0.5ml albuterol) twice a day, # 720 mL, 1 Refills, Hard Stop 07/28/22 9:58:00 EDT, 08/02/21 9:58:00 EDT, [facility], J47.0 bronchiectasis, 151, cm,... Start [...] Unknown, Refills 3, Route to Pharmacy Electronically, [facility], 151, cm, 09/29/21 13:12:00 EDT, Height, 61.69, kg, 09/29/21 13:11:00 EDT, Dry Weight Start Date: 11/05/21 Status: Ordered losartan 25 mg oral tablet 12.5 mg, 0.5, tablet, By Mouth, Daily, Take 0.5 tablet (12.5mg) daily, # 45 tablet, Refills 3, Tot.Refills 3, Maintenance, 06/12/21 13:52:00 EST, Route to Pharmacy Electronically, [facility], 151, cm, 06/11/21 13:48:00 EST, Height [...] 10/17/21 15:25:00 EDT, Route to Pharmacy Electronically, [id number], [facility] #[id number], 151, cm, 09/29/21 13:12:00 EDT, Hei... Start Date: 10/17/21 Status: Ordered Sodium Chloride, Inhalation 0.9% inhalation solution 4 mL = 0.036 Gm, Neb, 2 times a day, use with 0.5% albuterol solution together in nebulizer, # 240 mL, 6 Refills, Maintenance, 06/12/21 19:39:00 EST, [facility] #[id number], Partial fill upon patient request if the [...] 1-49% stenosis; LICA 1-49% stenosis 4Admission to [facility] for CHF 11/2020. Cardiac MRI: LVEF 44%; 12/16/20 echo at [facility]: LVEF=40-45% [address]-Owphqigiu as lung mass. S/P R-CHOP x 6 cycles. Social History Social History Type Response Smoking Status Former smoker entered on: 09/06/14 Sex
--- OUTSIDE RECORDS SUMMARY | 2023-08-31 08:16 | XMS_ITS | Continuity of Care Document ---
Author Organization [facility] Riky Zac lt Address [address] [place] [address]- Care Team Providers Care Checkering Machine Operator Name Role Phone Tray BROWN, Robert Anthony Primary Care Physician Encounter [facility] Date(s): 01/28/23 - 02/27/23 [facility] [address] [place] [address]- Allergies, Adverse Reactions, Alerts Substance Reaction Severity Status codeine Active tetanus toxoid Active sulfa drugs Active Fish Active Immunizations Given and Recorded Vaccine Date Status Refusal Reason [id number] 12y+ bivalent booster vax 08/15/22 Recorded Influenza Virus Vaccine (oldterm) 1 02/03/22 Recor ded SARS-CoV-2 mRNA (eoinpqg-chvt-hfooz) vax 08/06/21 Recorded SARS-CoV-2 (COVID-19) mRNA BNT-162b2 [...] 06/20/12 [place] [facility] 1[facility] Comment[facility] [...] 360 mL, 5 Refills, 01/18/23 8:59:00 EDT, [facility] #07475, J44.9, 150, cm, 01/11/23 10:59:00 EDT, Height, 61, kg, 04/17/22 11:31:00 EST, Dry Weight Start Date: 01/18/23 Status: Ordered bisoprolol 5 mg oral tablet See Instructions, TAKE 1/2 TABLET DAILY, # 45 Unknown, 0 Refills, Maintenance, 02/22/23 7:49:00 EDT, [facility], 150, cm, 01/11/23 10:59:00 EDT, Height, 61, kg, 04/17/22 11:31:00 EST, Dry Weight Start Date: 02/22/23 Status: Ordered clopidogrel 75 mg oral tablet See Instructions, TAKE 1 TABLET DAILY, # 90 Unknown, Refills 0, Maintenance, 02/22/23 7:49:00 EDT, Instructions Replace Required Details, Route to Pharmacy Electronically, [facility], 150, cm, 01/11/23 10:59:00 EDT, Height, [...] 10/17/21 15:25:00 EDT, Route to Pharmacy Electronically, [id number], [id number], 151, cm, 09/29/21 13:12:00 EDT, Hei... Start [...] mL, 5 Refills, Maintenance, 02/11/23 9:46:00 EDT, [facility] #[id number], USE 4 ML VIANEBULIZER TWICE DAILY USE WITH 0.5% TOGETHER IN VIA... Start Date: 02/11/23 Status: Ordered Trelegy Ellipta 200 mcg-62.5 mcg-25 mcg/inh inhalation powder 1 puffs, Inhalation, Daily, at the same time every day, j44.9, # 3 each, 1 Refills, Maintenance, 02/17/23 13:37:00 EDT, Powder, [facility], Partial fill upon patient request if the prescription is for a schedule II opioid drug., 1 puffs In... Start Date: 02/17/23 Status: Ordered Wheelchair See Instructions, # 1 [...] Active Insomnia Confirmed Active Migraines Confirmed Active ECLINE (obstructive sleep apnea) Confirmed Active Branch retinal [...] chart review meeting GFR criteria 6Admission to [facility] for CHF 11/2020. Cardiac MRI: LVEF 44%; 12/16/20 echo at [facility] [place]: LVEF=40-45% 8Per CT w/contrast 12/19/2021: Irregular partially calcified tissue along the distal left main pulmonary artery extending along the regular small caliber left lower lobe pulmonary artery branch probably reflecting chronic thrombus.. [id number]-Sopzxjouv as lung mass. S/P R-CHOP x 6 cycles. Social History Social History Type Response Smoking Status Former smoker entered on: 09/06/14 Sex Patient Care team information Care Team Personnel Name: Manuel Mayes MD Position: [facility] Physician - Pulm/Critical Care Member Role: Smutter Address: Address: [address] [place] [address] [address] [place] [address]- Name: Kenneth Chowdary MD Position: [facility] Cardiology MD Member Role: Director Physical Address: Address: [address] [place] [address] [address] [place] [address]- [place] Name: Robert Feliz MD Position: [facility] Physician - Primary Care Member Role: PCP Address: Address: [address] [place] [address]- [place] Name: Georgette Silva Position: [facility] Environment Coordinator Member Role: Well Cleaner Name: Epi Turner Member Role: Neurologist Name: Mariposa BROWN, Zi Méndez Position: Reference Physician Member Role: Head Cashier Address: Address: [address] [place] [address] [address] [facility] [place] [address]- [place] Care Team Related Persons Name: RAMIRO MARR Address: home [address] [place] [address]
--- OUTSIDE RECORDS SUMMARY | 2023-08-31 08:17 | XMS_ITS | Continuity of Care Document ---
Author Organization [facility] Address [address] [place] [address]- Care Team Providers Care Microarray Operations Vice President Name Role Phone Tray BROWN, Robert Anthony Primary Care Physician Encounter [facility] Date(s): 06/27/20 - 07/27/20 [facility] [address] [place] [address]- Allergies, Adverse Reactions, Alerts Substance Reaction Severity [...] 8Result Comment: [06/19/2016] [facility] 9Result Comment: [06/19/2016] [facility] Medications albuterol 0.083% inhalation solution 3 mL = 2.5 mg, Inhalation, Every 6 hours, use Acapella device after every treatment, # 120 each, 3 Refills, Maintenance, 06/27/20 15:48:00 EST, Solution, [facility] #[id number], 151, cm, 02/05/20 7:35:00 EDT, Height Start Date: 06/27/20 Status: Ordered amoxicillin 500 mg oral capsule 4 capsule = 2,000 mg, By Mouth, Once, take 4 capsules prior to dental procedure, # 4 capsule, 0 Refills, Soft Stop, 12/27/19 12:56:00 EDT, [facility] #77894, 151, cm, 11/22/19 11:48:00 EDT,Height, 65.4, kg, 05/02/18 11:04:00 EST, Dry Weight Start Date: 12/27/19 Status: Ordered aspirin 81 mg oral tablet, chewable 81 mg, 1, tablet, By Mouth, Daily, # 90 tablet, Refills 3, Tot. Refills 3, Maintenance, 02/05/20 7:58:00 EDT, Route to Pharmacy Electronically, [facility] #34956, 151, cm, 02/05/20 7:35:00 EDT, Height, 65.4, kg, 05/02/18 11:04:00 EST, Dry We... Start Date: 02/05/20 Status: Ordered meloxicam 7.5 mg oral tablet 1 tablet, By Mouth, Daily, # 90 tablet, 0 Refills, Maintenance, 07/01/20 12:15:00 EST, [facility] #33187, 151, cm, 02/05/20 7:35:00 EDT, Height Start Date: 07/01/20 Status: Ordered MiraLax Powder 1 pack/packet = 17 Gm, By Mouth, PRN Constipation, 0 Refills, Maintenance, 02/11/17 8:35:49 EDT, Powder Start Date: 02/11/17 Status: Ordered Multivitamin Daily, 0 Refills, Maintenance, 10/08/16 7:39:15 Start Date: 6/15/17 Status: Ordered Nebulizer/Compressor See Instructions, # 1 [...] 05/17/19 14:49:00 EST, Route to Pharmacy Electronically, [id number], [facility] #[id number], 151, cm, 05/17/19 14:23:00 EST, Hei... Start [...] 05/07/20 13:57:00 EST, Route to Pharmacy Electronically, [facility] #[id number], 151, cm, 02/05/20 7:35:00 EDT, Height Start [...]
--- OUTSIDE RECORDS SUMMARY | 2023-08-31 08:17 | XMS_ITS | Continuity of Care Document ---
Author Organization [facility] Address [address] [place] [address]- Care Team Providers Care Ic Design Engineer Name Role Phone Tray BROWN, Robert Anthony Primary Care Physician Encounter [facility] Date(s): 12/25/21 - 01/24/22 [facility] [address] [facility] [address] [place] [address]- Allergies, Adverse Reactions, Alerts Substance Reaction Severity Status codeine Active tetanus toxoid Active sulfa drugs Active Immunizations Given and Recorded Vaccine Date Status Refusal Reason SARS-CoV-2 mRNA (pgcocur-vruy-rcgsa) vax 08/06/21 Recorded SARS-CoV-2 (COVID-19) mRNA BNT-162b2 [...] vaccine 9 06/20/12 Recorded 1Location History: [facility] 2Location History: [facility] 3Result Comment: [06/19/2016] [facility] 4Result Comment: [06/19/2016] [facility] 5Early/Late Reason: Other : 6Result Comment: [06/19/2016] [facility] 7Result Comment: [06/19/2016] [facility] 8Result Comment: [06/19/2016] [facility] 9Result Comment: [06/19/2016] [facility] Medications albuterol 0.083% inhalation solution 3 mL, Inhalation, Every 6 hours, USE ACAPELLA DEVICE AFTER EVERY TREATMENT., # 360 mL, 5 Refills, [facility] #[id number], 151, cm, 09/29/21 13:12:00 EDT, Height, 61.69, [...] Unknown, Refills 3, Route to Pharmacy Electronically, [facility], 151, cm, 09/29/21 13:12:00 EDT, Height, 61.69, kg, 09/29/21 13:11:00 EDT, Dry Weight Start Date: 11/05/21 Status: Ordered Hyper-Don 7% inhalation solution 4 mL = 0.28 Gm, Neb, 2 times a day, take with 0.5ml = 2.5 mg albuterol (add hypersal 4ml to 0.5ml albuterol) twice a day J47.0, # 720 mL, 1 Refills, Maintenance, 07/28/22 9:58:00 EDT, [facility] #[id number], J47.0 bronchiectasis, 4 mL Neb 2 times... Start Date: 07/28/22 Status: Ordered Lasix 40 mg oral tablet 1, tablet, By Mouth, Daily, # 90 Unknown, Refills 3, [facility], 151, cm, 09/29/21 13:12:00 EDT, Height, 61.69, kg, 09/29/21 13:11:00 EDT, Dry Weight Start Date: 11/05/21 Status: Ordered losartan 25 mg oral tablet 12.5 mg, 0.5, tablet, By Mouth, Daily, Take 0.5 tablet (12.5mg) daily, # 45 tablet, Refills 3, Tot.Refills 3, Maintenance, 06/12/21 13:52:00 EST, Route to Pharmacy Electronically, [facility], 151, cm, 06/11/21 13:48:00 EST, Height [...] 10/17/21 15:25:00 EDT, Route to Pharmacy Electronically, [id number], [facility] #[id number], 151, cm, 09/29/21 13:12:00 EDT, Hei... Start Date: 10/17/21 Status: Ordered Sodium Chloride, Inhalation 0.9% inhalation solution 4 mL = 0.036 Gm, Neb, 2 times a day, use with 0.5% albuterol solution together in nebulizer, # 240 mL, 6 Refills, Maintenance, 06/12/21 19:39:00 EST, [facility] #[id number], Partial fill upon patient request if the [...] chart review meeting GFR criteria 5Admission [place] [facility] [place] 11[place]2020. Cardiac MRI: LVEF 44%; 12/16/20 echo at [facility]: LVEF=40-45% [id number]-[id number] as lung mass. S/P R-CHOP x 6 cycles. Social History Social History Type Response Smoking Status Former smoker entered on: 09/06/14 Sex Patient Care team information Personnel Name: Robert Feliz MD Address: Address: [address] [place] [address]-
--- OUTSIDE RECORDS SUMMARY | 2023-08-31 08:17 | XMS_ITS | Continuity of Care Document ---
Author Organization [facility] Address [address] [place] [address]- Care Team Providers Care Account Development Specialist Name Role Phone Tray BROWN, Robert Anthony Primary Care Physician Encounter [facility] Date(s): 06/12/21 - 07/12/21 [facility] [address] [place] [address]- [place] Allergies, Adverse Reactions, Alerts Substance Reaction [...] vaccine 9 06/20/12 Recorded 1Location History: [facility] 2Location History: [facility] 3Result Comment: [06/19/2016] [facility] 4Result Comment: [06/19/2016] [facility] 5Early/Late Reason: Other : 6Result Comment: [06/19/2016] [facility] 7Result Comment: [06/19/2016] [facility] 8Result Comment: [06/19/2016] [facility] 9Result Comment: [06/19/2016] [place] Medications albuterol 0.083% inhalation solution 3 mL = 2.5 mg, Inhalation, Every 6 hours, use Acapella device after every treatment, # 120 each, 3 Refills, Maintenance, 06/27/20 15:48:00 EST, Solution, [facility] #[id number], 151, cm, 02/05/20 7:35:00 EDT, Height Start [...] 5 Refills, Soft Stop, 05/06/21 17:27:00 EST, [facility] #[id number], 151, cm, 05/05/21 12:08:00 EST,Height Start Date: [...] Stop 08/02/21 9:58:00 EDT, 08/07/20 9:58:00 EDT, [facility] #[id number], J47.0 [facility]... Start Date: 08/07/20 Stop Date: 08/02/21 Status: Ordered Hyper-Don 7% inhalation solution 4 mL = 0.28 Gm, Neb, 2 times a day, take with 0.5ml = 2.5 mg albuterol (add hypersal 4ml to 0.5ml albuterol) twice a day, # 720 mL, 1 Refills, Maintenance, 08/02/21 9:58:00 EDT, [facility], J47.0 bronchiectasis, 4 mL Neb [...] 1, tablet, By Mouth, Daily, prescribed by [facility] doctor 12/18/20, # 90 tablet, Refills [...] 06/12/21 13:52:00 EST, Route to Pharmacy Electronically, [facility], 151, cm, 06/11/21 13:48:00 EST, Height Start Date: 06/12/21 Stop Date: 06/07/22 Status: Ordered meloxicam 7.5 mg oral tablet 1 tablet, By Mouth, Daily, # 90 tablet, 0 Refills, [facility] #[id number], 151, cm, 12/27/20 8:19:00 EDT, Height Start [...] 01/10/21 13:45:00 EDT, Route to Pharmacy Electronically, [facility] #[id number], Partial fill upon patientrequest if the prescription is for a schedule II op... Start Date: 01/10/21 Status: Ordered ProAir HFA 90 mcg/inh inhalation aerosol with adapter 2, puffs, Inhalation, 4 times a day, PRN, # 1 each, Refills 6, Tot. Refills 6, Maintenance, 08/26/20 14:10:00 EDT, Route to Pharmacy Electronically, [id number], [facility] #[id number], 151, cm, 08/26/20 13:26:00 EDT, Height Start Date: 08/26/20 Status: Ordered rosuvastatin 5 mg oral tablet 1 tablet = 5 mg, By Mouth, Daily, # 30 tablet, 5 Refills, Maintenance, 04/08/21 9:24:00 EST, Tablet, [id number], 151, cm, 03/07/21 9:27:00 EST, Height Start Date: 04/08/21 Stop Date: 10/05/21 Status: Ordered Sodium Chloride, Inhalation 0.9% inhalation solution 4 mL = 0.036 Gm, Neb, 2 times a day, use with 0.5% albuterol solution together in nebulizer, # 240 mL, 6 Refills, Maintenance, 06/12/21 19:39:00 EST, [facility] #[id number], Partial fill upon patient request if the [...]
--- OUTSIDE RECORDS SUMMARY | 2023-08-31 08:17 | XMS_ITS | Continuity of Care Document ---
Author Organization [facility] Address [address] [place] [address]- Care Team Providers Care Enterprise Analyst Name Role Phone Tray BROWN, Robert Anthony Primary Care Physician [phone] [place] [facility] [place] 04/28/22 - 05/05/22 [facility] Adult [address] [place] [address]- Encounter Diagnosis COPD with chronic bronchitis(Discharge Diagnosis) - 04/28/22 Chronic kidney disease, stage 3b(Discharge Diagnosis) - 04/28/22 Chest pain(Discharge Diagnosis) - 04/28/22 Attending Physician: Not on Staff, Attending MD Allergies, Adverse Reactions, Alerts Substance Reaction Severity Status codeine Active tetanus toxoid Active sulfa drugs Active Immunizations Given and Recorded Vaccine Date Status Refusal Reason Influenza Virus Vaccine (oldterm) 1 02/03/22 Recor ded SARS-CoV-2 mRNA (ckpxrmp-itvj-vtigv) vax 08/06/21 Recorded SARS-CoV-2 (COVID-19) mRNA BNT-162b2 [...] 06/20/12 Recorde d [facility] 4Result Comment: [06/19/2016] [facility] 5Result Comment: [06/19/2016] [facility] 6Early/Late Reason: Other : 7Result Comment: [06/19/2016] [facility] 8Result Comment: [06/19/2016] [facility] 9Result Comment: [06/19/2016] [facility] 10Result Comment: [06/19/2016] [facility] Medications albuterol 0.083% inhalation solution 3 mL, Inhalation, Every 6 hours, USE ACAPELLA DEVICE AFTER EVERY TREATMENT., # 360 mL, 5 Refills, [facility] #[id number], 151, cm, 09/29/21 13:12:00 EDT, Height, 61.69, kg, 09/29/21 13:11:00 EDT, Dry Weight Start Date: 11/13/21 Status: Ordered bisoprolol 5 mg oral tablet See Instructions, TAKE 1/2 TABLET DAILY, # 45 Unknown, 1 Refills, Maintenance, 04/28/22 8:52:00 EST, [facility], 150, cm, 04/17/22 11:31:00 EST, Height, 61, kg, 04/17/22 11:31:00 EST, Dry Weight Start Date: 04/28/22 Status: Ordered clopidogrel 75 mg oral tablet 1, tablet, By Mouth, Daily, # 90 Unknown, Refills 3, Route to Pharmacy Electronically, [facility], 151, cm, 09/29/21 13:12:00 EDT, Height, [...] 10/17/21 15:25:00 EDT, Route to Pharmacy Electronically, [id number], [facility] #[id number], 151, cm, 09/29/21 13:12:00 EDT, Hei... Start Date: 10/17/21 Status: Ordered Sodium Chloride, Inhalation 0.9% inhalation solution See Instructions, USE 4 ML VIA NEBULIZER TWICE DAILY USE WITH 0.5% VIA INHALER SOLUTION TOGETHER INVIA NEBULIZER, # 300 mL, 0 Refills, Maintenance, 04/28/22 9:38:00 EST, [facility] #[id number],25, USE 4 ML VIA NEBULIZER TWICE DAILY [...] chart review meeting GFR criteria 5[place] [facility] [place]. Cardiac MRI: LVEF 44%; 12/16/20 [place] [facility] LVEF=40-45% 32816-Jzlnwuxng as lung mass. S/P R-CHOP x 6 cycles. Diagnosis Diagnosis Type Effective Dates Health Status Clinical Service Informant COPD with chronic bronchitis Discharge Diagnosis 04/28/22 Chronic kidney disease, stage 3b Discharge Diagnosis 04/28/22 Chest pain Discharge Diagnosis 04/28/22 Vital Signs Most recent to oldest [Reference Range]: 1 Height 150 cm (04/28/22 10:26 AM) Weight 61.1 kg (04/28/22 10:26 AM) Oxygen Saturation [94-100 %] 99 % (04/28/22 10:26 AM) Pulse Rate [55-90 bpm] 68 bpm (04/28/22 10:26 AM) Body Mass Index [18.5-24.99 kg/m2] 27.16 kg/m2 *H* (04/28/22 10:26 AM) Blood Pressure [90-138/55-84 mm Hg] 116/ 75mm Hg (04/28/22 10:26 AM) Blood pressure sites Arm, left (04/28/22 10:26 AM) Weight Obtained Via Standing scale (04/28/22 10:26 AM) Social History Social History Type Response Smoking Status Former smoker entered on: 09/06/14 Sex Patient Care team information Care Team Personnel Name: Francoise Black RN Position: [facility] RN Member Role: Primary Care Nurse Name: Chiqui Stoll RN Position: [facility] RN Member Role: Primary Care Nurse Name: Robert Feliz MD Position: [facility] Primary Care Physician Member Role: PCP Address: Address: [address] [place] [address]- Care Team Related Persons Name: PARENTRAMIRO Address: home [address] [place] [address]
--- OUTSIDE RECORDS SUMMARY | 2023-08-31 08:17 | XMS_ITS | Continuity of Care Document ---
Author Organization [facility] Address [address] [place] [address]- Care Team Providers Care Criminology Teacher Name Role Phone Tray BROWN, Robert Anthony Primary Care Physician [place] [facility] [place]23 [place] 03/03/23 [facility] [address] [place] [address]- Allergies, Adverse Reactions, Alerts Substance Reaction Severity Status codeine Active tetanus toxoid Active sulfa drugs Active Fish Active Immunizations Given and Recorded Vaccine Date Status Refusal Reason [id number] 12y+ bivalent booster vax 08/15/22 Recorded Influenza Virus Vaccine (oldterm) 1 02/03/22 Recor ded SARS-CoV-2 mRNA (qkjnbie-rmlk-trloy) vax 08/06/21 Recorded SARS-CoV-2 (COVID-19) mRNA BNT-162b2 [...] 06/20/12 [facility] 1Result Comment: influenza at [facility] 2Location History: [facility] 3Location History: [facility] 4Result Comment: [06/19/2016] [facility] 5Result Comment: [06/19/2016] [facility] 6Early/Late Reason: Other : 7Result Comment: [06/19/2016] [facility] 8Result Comment: [06/19/2016] [facility] 9Result Comment: [06/19/2016] [facility] 10Result Comment: [06/19/2016] [facility] Medications albuterol 0.083% inhalation solution 3 mL, Inhalation, Every 6 hours, USE ACAPELLA DEVICE AFTER EVERY TREATMENT. J44.9, # 360 mL, 5 Refills, 01/18/23 8:59:00 EDT, [facility] #[id number], J44.9, 150, cm, 01/11/23 10:59:00 EDT, Height, 61, kg, 04/17/22 11:31:00 EST, Dry Weight Start Date: 01/18/23 Status: Ordered bisoprolol 5 mg oral tablet See Instructions, TAKE 1/2 TABLET DAILY, # 45 Unknown, 0 Refills, Maintenance, 02/22/23 7:49:00 EDT, [facility], 150, cm, 01/11/23 10:59:00 EDT, Height, 61, kg, 04/17/22 11:31:00 EST, Dry Weight Start Date: 02/22/23 Status: Ordered clopidogrel 75 mg oral tablet See Instructions, TAKE 1 TABLET DAILY, # 90 Unknown, Refills 0, Maintenance, 02/22/23 7:49:00 EDT, Instructions Replace Required Details, Route to Pharmacy Electronically, [facility], 150, cm, 01/11/23 10:59:00 EDT, Height, [...] 10/17/21 15:25:00 EDT, Route to Pharmacy Electronically, [id number], [facility] #[id number], 151, cm, 09/29/21 13:12:00 EDT, Hei... Start [...] mL, 5 Refills, Maintenance, 02/11/23 9:46:00 EDT, [facility] #[id number], USE 4 ML VIANEBULIZER TWICE DAILY USE [...] review meeting GFR criteria 6[place] [facility] [place]. Cardiac MRI: LVEF 44%; 12/16/20 echo at [facility]: LVEF=40-45% 8Per CT w/contrast 12/19/2021: Irregular partially calcified tissue along the distal left main pulmonary artery extending along the regular small caliber left lower lobe pulmonary artery branch probably reflecting chronic thrombus.. 62617-Rhxytlurt as lung mass. S/P R-CHOP x 6 cycles. Social History Social History Type Response Smoking Status Former smoker entered on: 09/06/14 Sex Patient Care team information Care Team Personnel Name: Manuel Mayes MD Position: [facility] Physician - Pulm/Critical Care Member Role: Piano Bench Assembler Address: Address: [address] [place] [address] [address] [place] [address]- Name: Kenneth Chowdary MD Position: [facility] Cardiology MD Member Role: Weigher Production Address: Address: [address] [place] [address] [address] [place] [address]- [place] Name: Robert Feliz MD Position: [facility] Physician - Primary Care Member Role: PCP Address: Address: [address] [place] [address]- [place] Name: Georgette Silva Position: [facility] Production Control Analyst Member Role: Road Gang Supervisor Name: Epi Turner Member Role: Neurologist Name: Mariposa BROWN, Zi Méndez Position: Reference Physician Member Role: Retail Consultant Address: Address: [address] [place] [address] [address] [facility] [place] [address]- [place] Care Team Related Persons Name: RAMIRO MARR Address: home [address] [place] [address]
--- OUTSIDE RECORDS SUMMARY | 2023-08-31 08:17 | XMS_ITS | Continuity of Care Document ---
Author Organization [facility] Address [address] [place] [address]- Care Team Providers Care Knurling Machine Tender Name Role Phone Tray BROWN, Robert Anthony Primary Care Physician Encounter [facility] [id number] Date(s): 07/01/22 - 10/29/22 [facility] [address] [place] [address]- Attending Physician: Emilie Reynolds NP Admitting Physician: Emilie Reynolds NP Referring Physician: Emilie Reynolds NP Allergies, Adverse Reactions, Alerts Substance Reaction Severity Status codeine Active tetanus toxoid Active sulfa drugs Active Fish Active Immunizations Given and Recorded Vaccine Date Status Refusal Reason [id number] 12y+ bivalent booster vax 08/15/22 Recorded Influenza Virus Vaccine (oldterm) 1 02/03/22 Recor ded SARS-CoV-2 mRNA (bzbmhjo-kikf-pkylz) vax 08/06/21 Recorded SARS-CoV-2 (COVID-19) mRNA BNT-162b2 [...] d 1Result Comment: influenza at [facility] 2Location History: [facility] 3Location History: [facility] 4Result Comment: [06/19/2016] [facility] 5Result Comment: [06/19/2016] [facility] 6Early/Late Reason: Other : 7Result Comment: [06/19/2016] [facility] 8Result Comment: [06/19/2016] [facility] 9Result Comment: [06/19/2016] [facility] 10Result Comment: [06/19/2016] [place] Medications albuterol 0.083% inhalation solution 3 mL, Inhalation, Every 6 hours, USE ACAPELLA DEVICE AFTER EVERY TREATMENT., # 360 mL, 5 Refills, [facility] #[id number], 151, cm, 09/29/21 13:12:00 EDT, Height, 61.69, kg, 09/29/21 13:11:00 EDT, Dry Weight Start Date: 11/13/21 Status: Ordered bisoprolol 5 mg oral tablet See Instructions, TAKE 1/2 TABLET DAILY, # 45 tablet, 1 Refills, Maintenance, 09/04/22 16:11:00 EDT, [facility], 150, cm, 08/28/22 9:37:00 EDT, Height, 61, kg, 04/17/22 11:31:00 EST, Dry Weight Start Date: 09/04/22 Status: Ordered clopidogrel 75 mg oral tablet 1, tablet, By Mouth, Daily, # 90 Unknown, Refills 0, Tot. Refills 0, Maintenance, 10/19/22 15:23:00EDT, Route to Pharmacy Electronically, [facility], 150, cm, 08/28/22 9:37:00 [...] Unknown, Refills 3, Route to Pharmacy Electronically, [facility], 151, cm, 09/29/21 13:12:00 EDT, Height, 61.69, kg, 09/29/21 13:11:00 EDT, Dry Weight Start Date: 11/05/21 Status: Ordered losartan 25 mg oral tablet See Instructions, TAKE 1/2 TABLET DAILY, # 45 tablet, 1 Refills, Maintenance, 09/04/22 16:13:00 EDT, [facility], 150, cm, 08/28/22 9:37:00 EDT, [...] 10/17/21 15:25:00 EDT, Route to Pharmacy Electronically, [id number], [facility] #[id number], 151, cm, 09/29/21 13:12:00 EDT, Hei... Start Date: 10/17/21 Status: Ordered Sodium Chloride, Inhalation 0.9% inhalation solution See Instructions, USE 4 ML VIA NEBULIZER TWICE DAILY USE WITH 0.5% VIA INHALER SOLUTION TOGETHER INVIA NEBULIZER, # 300 mL, 0 Refills, Maintenance, 04/28/22 9:38:00 EST, [facility] #[id number],25, USE 4 ML VIA NEBULIZER TWICE DAILY USE WITH 0.5... Start Date: 04/28/22 Status: Ordered Trelegy Ellipta 200 mcg-62.5 mcg-25 mcg/inh inhalation powder 1 puffs, Inhalation, Daily, at the same time every day, j44.9, # 1 each, 6 Refills, Maintenance, 10/14/22 11:12:00 EDT, Powder, [facility] #[id number], Partial fill upon patient request if the [...] pulmonary artery branch probably reflecting chronic thrombus.. 91811-Ggcktepmz as lung mass. S/P R-CHOP x 6 cycles. Social History Social History Type Response Smoking Status Former smoker entered on: 09/06/14 Sex Patient Care team information Care Team Personnel Name: Francoise Black RN Position: [facility] RN Member Role: Primary Care Nurse Name: Chiqui Stoll RN Position: S RN Member Role: Primary Care Nurse Name: Robert Feliz MD Position: S Physician - Primary Care Member Role: PCP Address: Address: [address] [place] [address]- Care Team Related Persons Name: RAMIRO MARR Address: home [address] [place] [address]
--- OUTSIDE RECORDS SUMMARY | 2023-08-31 08:17 | XMS_ITS | Continuity of Care Document ---
Author Organization [facility] Address [address] [place] [address]- Care Team Providers Care Sausage Grinder Name Role Phone Tray BROWN, Robert Anthony Primary Care Physician [id number] Date(s): 06/21/23 - 07/21/23 [facility] Adult [address] [place] [address]- Allergies, Adverse Reactions, Alerts Substance Reaction Severity [...] virus vaccine, inactivated 6 02/09/12 Re corded [id number] 12y+ bivalent booster vax 08/15/22 Recorded Influenza Virus Vaccine (oldterm) 7 02/03/22 Recor ded SARS-CoV-2 mRNA (wuiwltc-xbyv-dexko) vax 08/06/21 Recorded SARS-CoV-2 (COVID-19) mRNA BNT-162b2 [...] Comment: [06/19/2016] [facility] 7Result Comment: influenza at [facility] 8Result Comment: [06/19/2016] [facility] 9Result Comment: [06/19/2016] [facility] 10Result Comment: [06/19/2016] [place] Medications albuterol 0.083% inhalation solution 3 mL, Inhalation, Every 6 hours, USE ACAPELLA DEVICE AFTER EVERY TREATMENT. J44.9, # 360 mL, 5 Refills, 01/18/23 8:59:00 EDT, [facility] #[id number], J44.9, 150, cm, 01/11/23 10:59:00 EDT, Height, 61, kg, 04/17/22 11:31:00 EST, Dry Weight Start Date: 01/18/23 Status: Ordered benzonatate 100 mg oral capsule 1 capsule = 100 mg, By Mouth, 3 times a day, PRN as needed for cough, for 7 days, # 21 capsule, 0 Refills, Acute 07/28/23 4:16:00 EDT, 07/21/23 4:16:00 EDT, Capsule, [facility] #[id number], Partial fill upon patient request if the [...] Soft Stop, 07/19/23 9:46:00 EDT, Patch, [facility]/pharmacy #[id number], Partial fill upon patient request if the prescription is for a schedule II opioid d... Start Date: 07/19/23 Status: Ordered LORazepam 0.5 mg oral tablet 1 tablet = 0.5 mg, By Mouth, 2 times a day, PRN as needed for anxiety or insomnia, # 30 tablet, 1 Refills, Acute 07/22/23 14:14:00 EDT, 06/23/23 14:14:00 EST, Tablet, [facility]/pharmacy #[id number], Partial fillupon patient request if the [...] 10/17/21 15:25:00 EDT, Route to Pharmacy Electronically, [id number], [facility] #[id number], 151, cm, 09/29/21 13:12:00 EDT, Hei... Start [...] mL, 5 Refills, Maintenance, 02/11/23 9:46:00 EDT, [facility] #[id number], USE 4 ML VIANEBULIZER TWICE DAILY USE WITH 0.5% TOGETHER IN VIA... Start Date: 02/11/23 Status: Ordered traMADol 50 mg oral tablet 1 tablet = 50 mg, By Mouth, Every 12 hours, PRN for pain, # 30 tablet, 5 Refills, Acute 01/06/24 10:48:00 EDT, 07/06/23 10:47:00 EDT, Tablet, [facility]/pharmacy #[id number], Partial fill upon patient request if [...] chart review meeting GFR criteria 6[place] [facility] [place]2020. Cardiac MRI: LVEF 44%; 12/16/20 echo at [facility]: LVEF=40-45% 8Per CT w/contrast 12/19/2021: Irregular partially calcified tissue along the distal left main pulmonary artery extending along the regular small caliber left lower lobe pulmonary artery branch probably reflecting chronic thrombus.. 82682-[place] as lung mass. S/P R-CHOP x 6 cycles. Social History Social History Type Response Smoking Status Former smoker entered on: 09/06/14 Sex Patient Care team information Care Team Personnel Name: Manuel Mayes MD Position: [facility] Physician - Pulm/Critical Care Member Role: Proof Operator Address: Address: [address] [facility] [address] [facility] [address] [place] [address]- [place] Name: Kenneth Chowdary MD Position: [facility] Cardiology MD Member Role: Consultant Internship Address: Address: [address] [facility] [facility] [place] [address]- [place] Name: Robert Feliz MD Position: [facility] Physician - Primary Care Member Role: PCP Address: Address: [address] [place] [address]- [place] Name: Georgette Silva Position: [facility] Kiln Setter Member Role: Coronary Care Unit Nurse Name: Epi Turner Member Role: Neurologist Name: Mariposa BROWN, iZ Méndez Position: Reference Physician Member Role: Director E Learning Address: Address: [address] [facility] [address] [facility] [address] [facility] [place] [address]- [place] Care Team Related Persons Name: RAMIRO MARR Address: home [address] [place] [address]
--- OUTSIDE RECORDS SUMMARY | 2023-08-31 08:17 | XMS_ITS | Continuity of Care Document ---
Author Organization [facility] Address [address] [place] [address]- Care Team Providers Care Supervisor Epoxy Fabrication Name Role Phone Tray BROWN, Robert Anthony Primary Care Physician [phone] Encounter [facility] Date(s): 08/20/21 - 09/19/21 [facility] [address] [place] [id number] Allergies, Adverse Reactions, Alerts Substance Reaction [...] vaccine 9 06/20/12 Recorded 1Location History: [facility] 2Location History: [facility] 3Result Comment: [06/19/2016] [facility] 4Result Comment: [06/19/2016] [facility] 5Early/Late Reason: Other : 6Result Comment: [06/19/2016] [place] 7Result Comment: [06/19/2016] [facility] 8Result Comment: [06/19/2016] [facility] 9Result Comment: [06/19/2016] [place] Medications albuterol 0.083% inhalation solution 3 mL, Inhalation, Every 6 hours, USE ACAPELLA DEVICE AFTER EVERY TREATMENT., # 360 mL, 0 Refills, [facility] #[id number], 151, cm, 06/11/21 13:48:00 EST, Height Start Date: 08/18/21 Status: Ordered albuterol 5 mg/mL (0.5%) inhalation solution 0.5 mL = 2.5 mg, Inhalation, Every 6 hours, PRN for wheezing, # 20 mL, 11 Refills, Maintenance, 08/26/21 14:10:00 EDT, Solution, [facility] #[id number], Partial fill upon patient request if the prescription is for a schedule II opioid drug., 151,... Start Date: 08/26/21 Status: Ordered amoxicillin 500 mg oral capsule 4 capsule = 2,000 mg, By Mouth, Once, take 4 capsules prior to dental procedure, # 4 capsule, 5 Refills, Soft Stop, 05/06/21 17:27:00 EST, [facility] #[id number], 151, cm, 05/05/21 12:08:00 EST,Height Start Date: [...] Replace Required Details, Route to Pharmacy Electronically, [facility], 151, cm, 05/05/21 12:08:00 EST, Height Start Date: 05/23/21 Status: Ordered Hyper-Don 7% inhalation solution 4 mL = 0.28 Gm, Neb, 2 times a day, take with 0.5ml = 2.5 mg albuterol (add hypersal 4ml to 0.5ml albuterol) twice a day J47.0, # 720 mL, 1 Refills, Maintenance, 07/28/22 9:58:00 EDT, [facility] #[id number], J47.0 bronchiectasis, 4 mL Neb 2 times... Start Date: 07/28/22 Status: Ordered Hyper-Don 7% inhalation solution 4 mL = 0.28 Gm, Neb, 2 times a day, take with 0.5ml = 2.5 mg albuterol (add hypersal 4ml to 0.5ml albuterol) twice a day, # 720 mL, 1 Refills, Hard Stop 07/28/22 9:58:00 EDT, 08/02/21 9:58:00 EDT, [facility], J47.0 bronchiectasis, 151, cm,... Start Date: 08/02/21 Stop Date: 07/28/22 Status: Ordered Imodium Capsule 2 mg, By Mouth, Every 4 hours, Refills 0, Maintenance, 05/05/21 12:12:00 EST, Partial fill upon patient request if the prescription is for a schedule II opioid drug. Start Date: 05/05/21 Status: Ordered Lasix 40 mg oral tablet 40 mg, 1, tablet, By Mouth, Daily, prescribed by [facility] [place] [facility] doctor 12/18/20, # 90 tablet, Refills [...] 06/12/21 13:52:00 EST, Route to Pharmacy Electronically, [facility], 151, cm, 06/11/21 13:48:00 EST, Height Start Date: 06/12/21 Stop Date: 06/07/22 Status: Ordered meloxicam 7.5 mg oral tablet 1 tablet, By Mouth, Daily, # 90 tablet, 0 Refills, [facility] #[id number], 151, cm, 12/27/20 8:19:00 EDT, Height Start [...] 01/10/21 13:45:00 EDT, Route to Pharmacy Electronically, [facility] #[id number], Partial fill upon patientrequest if the prescription is for a schedule II op... Start Date: 01/10/21 Status: Ordered rosuvastatin 5 mg oral tablet 1 tablet = 5 mg, By Mouth, Daily, # 30 tablet, 5 Refills, Maintenance, 04/08/21 9:24:00 EST, Tablet, [facility] #[id number], 151, cm, 03/07/21 9:27:00 EST, Height Start Date: 04/08/21 Stop Date: 10/05/21 Status: Ordered Sodium Chloride, Inhalation 0.9% inhalation solution 4 mL = 0.036 Gm, Neb, 2 times a day, use with 0.5% albuterol solution together in nebulizer, # 240 mL, 6 Refills, Maintenance, 06/12/21 19:39:00 EST, [facility] #[id number], Partial fill upon patient request if the [...]
--- OUTSIDE RECORDS SUMMARY | 2023-08-31 08:17 | XMS_ITS | Continuity of Care Document ---
Author Organization [facility] ter Address [address] [place] [address]- Care Team Providers Care Sephora Product Consultant Name Role Phone Tray BROWN, Robert Anthony Primary Care Physician [id number] Date(s): 07/05/23 - 07/06/[address] [address]- Encounter Diagnosis Right leg pain(Final) - 07/05/23 Unable to bear weight(Final) - 07/05/23 ALS (amyotrophic lateral sclerosis)(Final) - 07/05/23 CKD (chronic kidney disease)(Final) - 07/05/23 Chronic obstructive pulmonary disease(Final) - 07/05/23 Discharge Disposition: A-Transfer SNF Attending Physician: Roni Lombardi MD Admitting Physician: Roni Lombardi MD Referring Physician: Not on Staff, Referring MD Allergies, Adverse Reactions, Alerts Substance Reaction [...] virus vaccine, inactivated 6 02/09/12 Re corded [id number] 12y+ bivalent booster vax 08/15/22 Recorded Influenza Virus Vaccine (oldterm) 7 02/03/22 Recor ded SARS-CoV-2 mRNA ([id number]) vax 08/06/21 Recorded SARS-CoV-2 (COVID-19) mRNA BNT-162b2 [...] Comment: [06/19/2016] [place] 7Result Comment: influenza at [facility] 8Result Comment: [06/19/2016] [facility] 9Result Comment: [06/19/2016] [facility] 10Result Comment: [06/19/2016] [place] Medications albuterol 0.083% inhalation solution 3 mL, Inhalation, Every 6 hours, USE ACAPELLA DEVICE AFTER EVERY TREATMENT. J44.9, # 360 mL, 5 Refills, 01/18/23 8:59:00 EDT, [facility] #[id number], J44.9, 150, cm, 01/11/23 10:59:00 EDT, Height, [...] 07/22/23 14:14:00 EDT, 06/23/23 14:14:00 EST, Tablet, [facility]/pharmacy #[id number], Partial fillupon patient request if the prescription is for a s... Start Date: 06/23/23 Stop Date: 07/22/23 Status: Ordered losartan 25 mg oral tablet See Instructions, TAKE 1/2 TABLET DAILY, # 45 Unknown, 0 Refills, Maintenance, 02/22/23 7:49:00 EDT, [facility], 150, cm, 01/11/23 10:59:00 EDT, Height, 61, kg, 04/17/22 11:31:00 EST, Dry Weight Start Date: 02/22/23 Status: Ordered losartan 25 mg oral tablet 12.5 mg, Tablet, By Mouth, 07/06/23 9:00:00 EDT Start Date: 07/06/23 Stop Date: 07/06/23 Status: Completed Pepcid Complete By Mouth, Every 12 hours, [...] 10/17/21 15:25:00 EDT, Route to Pharmacy Electronically, [id number], [facility] #[id number], 151, cm, 09/29/21 13:12:00 EDT, Hei... Start [...] mL, 5 Refills, Maintenance, 02/11/23 9:46:00 EDT, [facility] #[id number], USE 4 ML VIANEBULIZER TWICE DAILY USE WITH 0.5% TOGETHER IN VIA... Start Date: 02/11/23 Status: Ordered traMADol 50 mg oral tablet 1 tablet = 50 mg, By Mouth, Every 12 hours, PRN for pain, # 30 tablet, 5 Refills, Acute 01/06/24 10:48:00 EDT, 07/06/23 10:47:00 EDT, Tablet, [facility]/pharmacy #[id number], Partial fill upon patient [...] meeting GFR criteria 6[place] [facility] [place]. Cardiac MRI: LVEF 44%; 12/16/20 [place] [facility] LVEF=40-45% 8Per CT w/contrast 12/19/2021: Irregular partially calcified tissue along the distal left main pulmonary artery extending along the regular small caliber left lower lobe pulmonary artery branch probably reflecting chronic thrombus.. [id number] as lung mass. S/P R-CHOP x 6 cycles. Results Radiology Reports * Exam Date Time Procedure Performing Provider Status 07/05/23 2:51 AM XR Hip w/Pelvis 2-3 View Right Soledad Mcdaniel; Auth (Verified) Notes: (XR Hip w/Pelvis 2-3 View Right) Reason For Exam: Pain RESULT: XR Hip w/Pelvis 2-3 View Right XR Hip w/Pelvis 2-3 View Right Hx of Present Illness: R leg pain, Back pain; Reason: Pain; Clinical Question(s): Fracture COMPARISON: 06/11/2021 FINDINGS: There is no fracture or dislocation. The femoral heads are normally aligned with the acetabula. IMPRESSION: There is no acute osseous abnormality. WSN: [id number] Ordering Physician: Naty Mathis Dictated By: Nola Steele MD Dictated Date/Time: 07/05/23 7:47 am Reviewed By: Nola Steele MD Signed By: Nola Steele MD Signed Date/Time: 07/05/23 7:47 am Transcribed By: JUSTICE Transcribed Date/Time: 07/05/23 7:46 am * Exam Date Time Procedure Performing Provider Status 07/05/23 2:51 AM Knee 1 or 2 Views Right Robbie Mcdaniel sa; Auth (Verified) Notes: (Knee 1 or 2 Views Right) Reason For Exam: Pain RESULT: Knee 1 or 2 Views Right Examination: Right knee performed on 07/05/2023. History: Hx of Present Illness: R leg pain, Back pain; Reason: Pain; Clinical Question(s): Fracture; Special Instructions: Patella ([place] View) Findings: Frontal and lateral views of the right knee are compared to a prior study dated 02/09/2017. A total knee arthroplasty is demonstrated in expected location. There is no lucency surrounding thehardware to suggest the presence of loosening or infection. No fractures are seen. There is a smalljoint effusion. IMPRESSION: Total knee arthroplasty without evidence of complication. There is no fracture. WSN: [id number] Ordering Physician: Naty Mathis Dictated By: Nola Steele MD Dictated Date/Time: 07/05/23 7:44 am Reviewed By: Nola Steele MD Signed By: Nola Steele MD Signed Date/Time: 07/05/23 7:44 am Transcribed By: CSB Transcribed Date/Time: 07/05/23 7:43 am * Exam Date Time Procedure Performing Provider Status 07/05/23 4:[address] Ext Lower W/O Contrast Right Soraya Alfonso; Auth (Verified) Notes: (CT Ext Lower W/O Contrast Right) Reason For Exam: pain from R knee to R hip,. unable to wt bear atraumatic;Pain RESULT: CT Ext Lower W/O Contrast Right CT Ext Lower W/O Contrast Right Hx of Present Illness: R leg pain, Back pain; Reason: Pain; pain from R knee to R hip,. unable to wt bear atraumatic; Clinical Question(s): Hip; Order Comment: TECHNIQUE: Helical CT without contrast formatted in 3 planes. Weight-based protocol using automatictube modulation was used to optimize exposure parameters. CTDIvol Body: 33.60 mGy, DLP Body: 1977 mGy*cm. COMPARISONS: Plain films performed earlier today. FINDINGS: Bones and joints: No fracture or dislocation. The hip joint space is preserved. Mild degenerative changes at the pubic symphysis. Status post total knee arthroplasty, without periprosthetic fracture or CT evidence of loosening. Trace knee joint effusion. Soft Tissues: Tiny fat-containing right inguinal hernia. IMPRESSION: No acute osseous abnormality. Trace knee joint effusion, nonspecific. I have personally reviewed the images and I agree with this report. WSN: [id number] Ordering Physician: Naty Mathis Dictated By: Cyrus Finney MD Dictated Date/Time: 07/05/23 8:14 am Reviewed By: Robel Mon MD Signed By: Robel Mon MD Signed Date/Time: 07/05/23 8:19 am Transcribed By: JUSTICE Transcribed Date/Time: 07/05/23 7:40 am Vital Signs Most recent to oldest [Reference Range]: 1 2 3 Oxygen Saturation [94-100 %] 98 % (07/06/23 8:40 AM) 98 % (07/06/23 6:18 AM) 96 % (07/06/23 3:32 AM) Pulse Rate [55-90 bpm] 73 bpm (07/06/23 8:40 AM) 77 bpm (07/06/23 6:18 AM) 75 bpm (07/06/23 3:32 AM) Blood Pressure [90-138/55-84 mm Hg] 111/56mm Hg (07/06/23 8:40 AM) 123/84mm Hg (07/06/23 6:18 AM) 125/62mm Hg (07/06/23 3:32 AM) Respiratory Rate [16-30 br/min] 18 br/min (07/06/23 8:40 AM) 18 br/min (07/06/23 6:18 AM) 16 br/min (07/06/23 3:32 AM) Temperature [96.8-100.4 DegF] 97.7 DegF (07/05/23 10:30 PM) 97.7 DegF (07/05/23 4:36 PM) 97.8 DegF (07/05/23 10:42 AM) Mode of Delivery (Oxygen) Room air (07/06/23 8:40 AM) Room air (07/06/23 6:18 AM) Room air (07/06/23 3:32 AM) Blood pressure sites Arm, right (07/05/23 10:42 AM) Arm, right (07/05/23 5:20 AM) Arm, right (07/05/23 3:26 AM) Temperature Route Oral (07/05/23 10:30 PM) Oral (07/05/23 4:36 PM) Oral (07/05/23 10:42 AM) Social History Social History Type Response Smoking Status Former smoker entered on: 09/06/14 Sex Patient Care team information Care Team Personnel Name: Manuel Mayes MD Position: [facility] Physician - Pulm/Critical Care Member Role: Rental Representative Address: Address: [address] [place] [address] [address] [facility] [place] [address]- [place] Name: Kenneth Chowdary MD Position: [facility] Cardiology MD Member Role: Lead Sprinkler Address: Address: [address] [place] [address] [address] [facility] [place] [address]- Name: Robert Feliz MD Position: [facility] Physician - Primary Care Member Role: PCP Address: Address: [address] [place] [address]- [place] Name: Georgette Silva Position: [facility] [place] Reed Cleaner Member Role: Studio Associate Name: Epi Turner Member Role: Neurologist Name: Mariposa BROWN, Zi Méndez Position: Reference Physician Member Role: Manager Transport Address: Address: [address] [place] [address] [address] [facility] [place] [place] [address]- [place] Care Team Related Persons Name: RAMIRO MARR Address: home [address] [place] [id number]
--- OUTSIDE RECORDS SUMMARY | 2023-08-31 08:17 | XMS_ITS | Continuity of Care Document ---
Author Organization [facility] Address [address] [address]- Care Team Providers Care Shipping/Receiving Manager Name Role Phone Tray BROWN, Robert Anthony Primary Care Physician Encounter [facility] Date(s): 01/18/23 - 02/17/23 [facility] [address] [address]- Allergies, Adverse Reactions, Alerts Substance Reaction Severity Status codeine Active Fish Active tetanus toxoid Active sulfa drugs Active Immunizations Given and Recorded Vaccine Date Status Refusal Reason [id number] 12y+ bivalent booster vax 08/15/22 Recorded Influenza Virus Vaccine (oldterm) 1 02/03/22 Recor ded SARS-CoV-2 mRNA (cdvcjqa-bdmp-uaoyi) vax 08/06/21 Recorded SARS-CoV-2 (COVID-19) mRNA BNT-162b2 [...] Sigifredo anderson 1Result Comment: influenza at [facility] 2Location History: [facility] 3Location History: [facility] 4Result Comment: [06/19/2016] [place] 5Result Comment: [06/19/2016] [facility] 6Early/Late Reason: Other : 7Result Comment: [06/19/2016] [place] 8Result Comment: [06/19/2016] [facility] 9Result Comment: [06/19/2016] [facility] 10Result Comment: [06/19/2016] [place] Medications albuterol 0.083% inhalation solution 3 mL, Inhalation, Every 6 hours, USE ACAPELLA DEVICE AFTER EVERY TREATMENT. J44.9, # 360 mL, 5 Refills, 01/18/23 8:59:00 EDT, [facility] #[id number], J44.9, 150, cm, 01/11/23 10:59:00 EDT, Height, 61, kg, 04/17/22 11:31:00 EST, Dry Weight Start Date: 01/18/23 Status: Ordered bisoprolol 5 mg oral tablet See Instructions, TAKE 1/2 TABLET DAILY, # 45 tablet, 1 Refills, Maintenance, 09/04/22 16:11:00 EDT, [facility], 150, cm, 08/28/22 9:37:00 EDT, Height, 61, kg, 04/17/22 11:31:00 EST, Dry Weight Start Date: 09/04/22 Status: Ordered clopidogrel 75 mg oral tablet 1, tablet, By Mouth, Daily, # 90 Unknown, Refills 0, Tot. Refills 0, Maintenance, 10/19/22 15:23:00EDT, Route to Pharmacy Electronically, [facility], 150, cm, 08/28/22 9:37:00 EDT, Height, 61, kg, 04/17/22 11:31:00 EST, Dry Weight Start Date: 10/19/22 Status: Ordered Lasix 40 mg oral tablet 1, tablet, By Mouth, Daily, # 90 Unknown, Refills 3, Maintenance, 02/08/23 16:25:00 EDT, Route to Pharmacy Electronically, [facility], 150, cm, 01/11/23 10:59:00 EDT, Height, [...] 12/22/22 10:35:00 EDT, Route to Pharmacy Electronically, [facility] #[id number], Partial fill upon patient req... Start Date: 12/22/22 Status: Ordered ProAir HFA 90 mcg/inh inhalation aerosol with adapter 2, puffs, Inhalation, 4 times a day, PRN, # 1 each, Refills 5, Tot. Refills 5, Maintenance, 10/17/21 15:25:00 EDT, Route to Pharmacy Electronically, [id number], [facility] #[id number], 151, cm, 09/29/21 13:12:00 EDT, Hei... Start [...] mL, 5 Refills, Maintenance, 02/11/23 9:46:00 EDT, [facility] #[id number], USE 4 ML VIANEBULIZER TWICE DAILY USE [...] chart review meeting GFR criteria 6Admission to [facility] [place] 11/2020. Cardiac MRI: LVEF 44%; 12/16/20 echo at [facility]: LVEF=40-45% 8Per CT w/contrast 12/19/2021: Irregular partially calcified tissue along the distal left main pulmonary artery extending along the regular small caliber left lower lobe pulmonary artery branch probably reflecting chronic thrombus.. [id number] as lung mass. S/P R-CHOP x 6 cycles. Social History Social History Type Response Smoking Status Former smoker entered on: 09/06/14 Sex Patient Care team information Care Team Personnel Name: Manuel Mayes MD Position: [facility] Physician - Pulm/Critical Care Member Role: Director Personal Address: Address: [address] [place] [address] [address] [facility] [place] [address]- Name: Kenneth Chowdary MD Position: [facility] Cardiology MD Member Role: Woolen Mill Utility Worker Address: Address: [address] [place] [address] [address] [facility] [place] [address]- Name: Robert Feliz MD Position: [facility] Physician - Primary Care Member Role: PCP Address: Address: [address] [place] [address]- [place] Name: Georgette Silva Position: [facility] [place] Agricultural Produce Commission Agent Member Role: Horticultural Worker Name: Epi Turner Member Role: Neurologist Name: Mariposa BROWN, Zi Méndez Position: Reference Physician Member Role: Electronics Assembler And Tester Address: Address: [address] [place] [address] [address] [facility] [place] [address]- Care Team Related Persons Name: RAMIRO MARR Address: [address] [address]
--- OUTSIDE RECORDS SUMMARY | 2023-08-31 08:17 | XMS_ITS | Continuity of Care Document ---
Author Organization [facility] Address [address] [place] [address]- Care Team Providers Care Criminology Professor Name Role Phone Tray BROWN, Robert Anthony Primary Care Physician Encounter [facility] Date(s): 02/10/21 - 03/12/21 [facility] [address] [place] [address]- Attending Physician: Admtr, Samuel8 Admitting Physician: Admtr, [...] 3 Refills, Maintenance, 06/27/20 15:48:00 EST, Solution, [facility] #[id number], 151, cm, 02/05/20 7:35:00 EDT, Height Start Date: 06/27/20 Status: Ordered amoxicillin 500 mg oral capsule 4 capsule = 2,000 mg, By Mouth, Once, take 4 capsules prior to dental procedure, # 4 capsule, 0 Refills, Soft Stop, 08/15/20 16:35:00 EDT, [facility] #[id number], 151, cm, 02/05/20 7:35:00 EDT, Height Start Date: 08/15/20 Status: Ordered atorvastatin 40 mg oral tablet 1 tablet = 40 mg, By Mouth, Daily, # 30 tablet, 11 Refills, Maintenance, 02/26/21 15:23:00 EDT, Tablet, [facility] #23711, Partial fill upon patient request if the [...] mL, 11 Refills, Maintenance, 08/07/20 9:58:00 EDT, [facility]#47476, J47.0 bronchiectasis, 4 mL Neb 2 times a da... Start Date: 08/07/20 Stop Date: 08/02/21 Status: Ordered Lasix 40 mg oral tablet 40 mg, 1, tablet, By Mouth, Daily, prescribed by [facility] doctor 12/18/20, # 30 tablet, Refills 2, Tot. Refills 2, Maintenance, 01/10/21 13:42:00 EDT, Route to Pharmacy Electronically, [facility] #00125, Partial fill upon patient request if th... Start Date: 01/10/21 Status: Ordered losartan 25 mg oral tablet 12.5 mg, 0.5, tablet, By Mouth, Daily, Take 0.5 tablet (12.5mg) daily, # 15 tablet, Refills 11, Tot. Refills 11, Maintenance, 02/05/21 8:59:00 EDT, Route to Pharmacy Electronically, [facility] #08154, Partial fill upon patient request if the... Start Date: 02/05/21 Status: Ordered meloxicam 7.5 mg oral tablet 1 tablet, By Mouth, Daily, # 90 tablet, 0 Refills, [facility] #68554, 151, cm, 12/27/20 8:19:00 EDT, Height Start [...] 01/10/21 13:45:00 EDT, Route to Pharmacy Electronically, [facility] #[id number], Partial fill upon patientrequest if the prescription is for a schedule II op... Start Date: 01/10/21 Status: Ordered ProAir HFA 90 mcg/inh inhalation aerosol with adapter 2, puffs, Inhalation, 4 times a day, PRN, # 1 each, Refills 6, Tot. Refills 6, Maintenance, 08/26/20 14:10:00 EDT, Route to Pharmacy Electronically, [id number], [facility] #[id number], 151, cm, 08/26/20 13:26:00 EDT, Height Start Date: 08/26/20 Status: Ordered Trelegy Ellipta 200 mcg-62.5 mcg-25 mcg/inh inhalation powder 1 puffs, Inhalation, Daily, at the same time every day, # 1 each, 6 Refills, Maintenance, 12/06/20 9:31:00 EDT, Powder, [facility] #07404, Partial fill upon patient request if the [...]
--- OUTSIDE RECORDS SUMMARY | 2023-08-31 08:17 | XMS_ITS | Continuity of Care Document ---
Author Organization [facility] Address [address] [place] [address]- Care Team Providers Care Music Sound Light Technician Name Role Phone Tray BROWN, Robert Anthony Primary Care Physician [phone] Encounter [facility] Date(s): 06/09/21 - 07/09/21 [facility] [address] [place] [address]- Allergies, Adverse Reactions, Alerts Substance Reaction Severity [...] 3 Refills, Maintenance, 06/27/20 15:48:00 EST, Solution, [facility] #[id number], 151, cm, 02/05/20 7:35:00 EDT, Height Start [...] 5 Refills, Soft Stop, 05/06/21 17:27:00 EST, [facility] #[id number], 151, cm, 05/05/21 12:08:00 EST,Height Start Date: [...] Stop 08/02/21 9:58:00 EDT, 08/07/20 9:58:00 EDT, [facility] #63597, J47.0 [facility]... Start Date: 08/07/20 Stop Date: 08/02/21 Status: Ordered Hyper-Don 7% inhalation solution 4 mL = 0.28 Gm, Neb, 2 times a day, take with 0.5ml = 2.5 mg albuterol (add hypersal 4ml to 0.5ml albuterol) twice a day, # 720 mL, 1 Refills, Maintenance, 08/02/21 9:58:00 EDT, [facility], J47.0 bronchiectasis, 4 mL Neb [...] 1, tablet, By Mouth, Daily, prescribed by [facility] doctor 12/18/20, # 90 tablet, Refills [...] Mouth, Daily, # 90 tablet, 0 Refills, [facility] #33678, 151, cm, 12/27/20 8:19:00 EDT, Height Start [...] 01/10/21 13:45:00 EDT, Route to Pharmacy Electronically, [facility] #[id number], Partial fill upon patientrequest if the prescription is for a schedule II op... Start Date: 01/10/21 Status: Ordered ProAir HFA 90 mcg/inh inhalation aerosol with adapter 2, puffs, Inhalation, 4 times a day, PRN, # 1 each, Refills 6, Tot. Refills 6, Maintenance, 08/26/20 14:10:00 EDT, Route to Pharmacy Electronically, [id number], [facility] #[id number], 151, cm, 08/26/20 13:26:00 EDT, Height Start Date: 08/26/20 Status: Ordered rosuvastatin 5 mg oral tablet 1 tablet = 5 mg, By Mouth, Daily, # 30 tablet, 5 Refills, Maintenance, 04/08/21 9:24:00 EST, Tablet, [facility][id number], 151, cm, 03/07/21 9:27:00 EST, Height Start Date: 04/08/21 Stop Date: 10/05/21 Status: Ordered Sodium Chloride, Inhalation 0.9% inhalation solution 4 mL = 0.036 Gm, Neb, 2 times a day, use with 0.5% albuterol solution together in nebulizer, # 240 mL, 6 Refills, Maintenance, 06/12/21 19:39:00 EST, [facility] #[id number], Partial fill upon patient request if the [...]
--- OUTSIDE RECORDS SUMMARY | 2023-08-31 08:17 | XMS_ITS | Continuity of Care Document ---
Author Organization [facility] Address [address] [address]- Care Team Providers Care Movie Writer Name Role Phone Tray BROWN, Robert Anthony Primary Care Physician [place] [facility] [place] - 09[place]16/20 [facility] [address] [address]- Attending Physician: Karrie Vincent Admitting Physician: Karrie Vincent Referring Physician: Mor Diaz MD Allergies, Adverse Reactions, Alerts Substance Reaction [...] vaccine 9 06/20/12 Recorded 1Location History: [facility] 2Location History: [facility] 3Result Comment: [06/19/2016] JANET 4Result Comment: [06/19/2016] gaylebekaila 5Early/Late Reason: Other : 6Result Comment: [06/19/2016] JANET 7Result Comment: [06/19/2016] [facility] 8Result Comment: [06/19/2016] [facility] 9Result Comment: [06/19/2016] JANET Medications albuterol 0.083% inhalation solution 3 mL = 2.5 mg, Inhalation, Every 6 hours, use Acapella device after every treatment, # 120 each, 3 Refills, Maintenance, 06/27/20 15:48:00 EST, Solution, [facility] #[id number], 151, cm, 02/05/20 7:35:00 EDT, Height Start Date: 06/27/20 Status: Ordered amoxicillin 500 mg oral capsule 4 capsule = 2,000 mg, By Mouth, Once, take 4 capsules prior to dental procedure, # 4 capsule, 0 Refills, Soft Stop, 08/15/20 16:35:00 EDT, [facility] #[id number], 151, cm, 02/05/20 7:35:00 EDT, Height Start Date: 08/15/20 Status: Ordered aspirin 81 mg oral tablet, chewable 81 mg, 1, tablet, By Mouth, Daily, # 90 tablet, Refills 3, Tot. Refills 3, Maintenance, 02/05/20 7:58:00 EDT, Route to Pharmacy Electronically, [facility] #[id number], 151, cm, 02/05/20 7:35:00 EDT, Height, 65.4, kg, 05/02/18 11:04:00 EST, Dry We... Start Date: 02/05/20 Status: Ordered Hyper-Don 7% inhalation solution 4 mL = 0.28 Gm, Neb, 2 times a day, take with 0.5ml = 2.5 mg albuterol (add hypersal 4ml to 0.5ml albuterol) twice a day, # 240 mL, 11 Refills, Maintenance, 08/07/20 9:58:00 EDT, [facility]#[id number], J47.0 bronchiectasis, 4 mL Neb 2 times a da... Start Date: 08/07/20 Stop Date: 08/02/21 Status: Ordered Macrobid macrocrystals-monohydrate 100 mg oral capsule 1 capsule = 100 mg, By Mouth, 2 times a day, for 7 days, # 14 capsule, 0 Refills, Acute 09/17/20 17:06:00 EDT, 09/10/20 17:06:00 EDT, Capsule, [facility] #[id number], 151, cm, 09/09/20 9:14:00 EDT, Height Start Date: 09/10/20 Stop Date: 09/17/20 Status: Ordered meloxicam 7.5 mg oral tablet 1 tablet, By Mouth, Daily, # 90 tablet, 0 Refills, Maintenance, 07/01/20 12:15:00 EST, [facility] #[id number], 151, cm, 02/05/20 7:35:00 EDT, Height Start [...] 08/26/20 14:10:00 EDT, Route to Pharmacy Electronically, [id number], [facility] #[id number], 151, cm, 08/26/20 13:26:00 EDT, Height Start [...] oldest [Reference Range]: 1 Height 151 cm (09/09/20 9:14 AM) Weight 65.3 kg (09/09/20 9:14 AM) Oxygen Saturation [94-100 %] 99 % (09/09/20 9:14 AM) Pulse Rate [55-90 bpm] 99 bpm *H* (09/09/20 9:14 AM) Body Mass Index [18.5-24.99] 28.64 *H* (09/09/20 9:14 AM) Blood Pressure [90-138/55-84 mm Hg] 124/ 64mm Hg (09/09/20 9:14 AM) Mode of Delivery (Oxygen) Room air (09/09/20 9:14 AM) Weight Obtained Via Standing scale (09/09/20 9:14 AM) Social History Social History Type Response Smoking Status Former smoker entered on: 09/06/14 Sex
--- OUTSIDE RECORDS SUMMARY | 2023-08-31 08:17 | XMS_ITS | Continuity of Care Document ---
Author Organization [facility] Riky Zac lt Address [address] [place] [address]- Care Team Providers Care Gas Meter Repair Supervisor Name Role Phone Tray BROWN, Robert Anthony Primary Care Physician [phone] [place] [facility] [place](s[place] 09/16/21 - 10/16/21 [facility] Adult [address] [place] [address]- Allergies, Adverse Reactions, Alerts Substance Reaction Severity [...] vaccine 9 06/20/12 Recorded 1Location History: [facility]Location History: [facility] 3Result Comment: [06/19/2016] [facility] 4Result Comment: [06/19/2016] [facility] 5Early/Late Reason: Other : 6Result Comment: [06/19/2016] [facility] 7Result Comment: [06/19/2016] [facility] 8Result Comment: [06/19/2016] [facility] 9Result Comment: [06/19/2016] [facility] Medications albuterol 0.083% inhalation solution 3 mL, Inhalation, Every 6 hours, USE ACAPELLA DEVICE AFTER EVERY TREATMENT., # 360 mL, 0 Refills, [facility] #[id number], 151, cm, 06/11/21 13:48:00 EST, Height Start Date: 08/18/21 Status: Ordered albuterol 5 mg/mL (0.5%) inhalation solution 0.5 mL = 2.5 mg, Inhalation, Every 6 hours, PRN for wheezing, # 20 mL, 11 Refills, Maintenance, 08/26/21 14:10:00 EDT, Solution, [facility] #[id number], Partial fill upon patient request if the prescription is for a schedule II opioid drug., 151,... Start Date: 08/26/21 Status: Ordered amoxicillin 500 mg oral capsule 4 capsule = 2,000 mg, By Mouth, Once, take 4 capsules prior to dental procedure, # 4 capsule, 5 Refills, Soft Stop, 05/06/21 17:27:00 EST, [facility] #[id number], 151, cm, 05/05/21 12:08:00 EST,Height Start Date: [...] Replace Required Details, [facility], 151, cm, 05/05/21 12:08:00 EST, Height Start Date: 05/23/21 Status: Ordered Hyper-Don 7% inhalation solution 4 mL = 0.28 Gm, Neb, 2 times a day, take with 0.5ml = 2.5 mg albuterol (add hypersal 4ml to 0.5ml albuterol) twice a day J47.0, # 720 mL, 1 Refills, Maintenance, 07/28/22 9:58:00 EDT, [facility] #[id number], J47.0 bronchiectasis, 4 mL Neb 2 times... Start Date: 07/28/22 Status: Ordered Hyper-Don 7% inhalation solution 4 mL = 0.28 Gm, Neb, 2 times a day, take with 0.5ml = 2.5 mg albuterol (add hypersal 4ml to 0.5ml albuterol) twice a day, # 720 mL, 1 Refills, Hard Stop 07/28/22 9:58:00 EDT, 08/02/21 9:58:00 EDT, [facility], J47.0 bronchiectasis, 151, cm,... Start Date: 08/02/21 Stop Date: 07/28/22 Status: Ordered Imodium Capsule 2 mg, By Mouth, Every 4 hours, Refills 0, Maintenance, 05/05/21 12:12:00 EST, Partial fill upon patient request if the prescription is for a schedule II opioid drug. Start Date: 05/05/21 Status: Ordered Lasix 40 mg oral tablet 40 mg, 1, tablet, By Mouth, Daily, [place] [facility] [place]18[place]20, # 90 tablet, Refills [...] 06/12/21 13:52:00 EST, [facility], [facility], 151, cm, 06/11/21 13:48:00 EST, [...] 01/10/21 13:45:00 EDT, Route to Pharmacy Electronically, [facility] #[id number], Partial fill upon patientrequest if the prescription is for a schedule II op... Start Date: 01/10/21 Status: Ordered Sodium Chloride, Inhalation 0.9% inhalation solution 4 mL = 0.036 Gm, Neb, 2 times a day, use with 0.5% albuterol solution together in nebulizer, # 240 mL, 6 Refills, Maintenance, 06/12/21 19:39:00 EST, [facility] #[id number], Partial fill upon patient request if the [...]
--- OUTSIDE RECORDS SUMMARY | 2023-08-31 08:17 | XMS_ITS | Continuity of Care Document ---
Author Organization [facility] Zac lt Address [address] [place] [address]- Care Team Providers Care Svp Research And Strategic Analysis Name Role Phone Tray BROWN, Robert Anthony Primary Care Physician Encounter [facility] [place] Date(s): 01/01/23 - 01/31/23 [facility] Adult [address] [place] [address]- Allergies, Adverse Reactions, Alerts Substance Reaction Severity Status codeine Active Fish Active tetanus toxoid Active sulfa drugs Active Immunizations Given and Recorded Vaccine Date Status Refusal Reason [id number] 12y+ bivalent booster vax 08/15/22 Recorded Influenza Virus Vaccine (oldterm) 1 02/03/22 Recor ded SARS-CoV-2 mRNA (rqmsoxf-bvxs-xemxz) vax 08/06/21 Recorded SARS-CoV-2 (COVID-19) mRNA BNT-162b2 [...] d 1Result Comment: influenza at [facility] 2Location History: [facility] 3Location History: [facility] 4Result Comment: [06/19/2016] [facility] 5Result Comment: [06/19/2016] [facility] 6Early/Late Reason: Other : 7Result Comment: [06/19/2016] [facility] 8Result Comment: [06/19/2016] [facility] 9Result Comment: [06/19/2016] [facility] 10Result Comment: [06/19/2016] [facility] Medications albuterol 0.083% inhalation solution 3 mL, Inhalation, Every 6 hours, USE ACAPELLA DEVICE AFTER EVERY TREATMENT. J44.9, # 360 mL, 5 Refills, 01/18/23 8:59:00 EDT, [facility] #[id number], J44.9, 150, cm, 01/11/23 10:59:00 EDT, Height, 61, kg, 04/17/22 11:31:00 EST, Dry Weight Start Date: 01/18/23 Status: Ordered bisoprolol 5 mg oral tablet See Instructions, TAKE 1/2 TABLET DAILY, # 45 tablet, 1 Refills, Maintenance, 09/04/22 16:11:00 EDT, [facility], 150, cm, 08/28/22 9:37:00 EDT, Height, 61, kg, 04/17/22 11:31:00 EST, Dry Weight Start Date: 09/04/22 Status: Ordered clopidogrel 75 mg oral tablet 1, tablet, By Mouth, Daily, # 90 Unknown, Refills 0, Tot. Refills 0, Maintenance, 10/19/22 15:23:00EDT, Route to Pharmacy Electronically, [facility], 150, cm, 08/28/22 9:37:00 EDT, Height, 61, kg, 04/17/22 11:31:00 EST, Dry Weight Start Date: 10/19/22 Status: Ordered Lasix 40 mg oral tablet 1, tablet, By Mouth, Daily, # 90 Unknown, Refills 3, Route to Pharmacy Electronically, [facility], 151, cm, 09/29/21 13:12:00 EDT, Height, 61.69, kg, 09/29/21 13:11:00 EDT, Dry Weight Start Date: 11/05/21 Status: Ordered losartan 25 mg oral tablet See Instructions, TAKE 1/2 TABLET DAILY, # 45 tablet, 1 Refills, Maintenance, 09/04/22 16:13:00 EDT, [facility], 150, cm, 08/28/22 9:37:00 EDT, [...] 12/22/22 10:35:00 EDT, Route to Pharmacy Electronically, [facility] #[id number], Partial fill upon patient req... Start Date: 12/22/22 Status: Ordered ProAir HFA 90 mcg/inh inhalation aerosol with adapter 2, puffs, Inhalation, 4 times a day, PRN, # 1 each, Refills 5, Tot. Refills 5, Maintenance, 10/17/21 15:25:00 EDT, Route to Pharmacy Electronically, [id number], [facility] #[id number], 151, cm, 09/29/21 13:12:00 EDT, Hei... Start [...] mL, 0 Refills, Maintenance, 11/27/22 15:51:00 EDT, [facility] #[id number], 12, USE 4 ML VIA NEBULIZER TWICE DAILY USE WITH 0.... Start Date: 11/27/22 Status: Ordered Trelegy Ellipta 200 mcg-62.5 mcg-25 mcg/inh inhalation powder 1 puffs, Inhalation, Daily, at the same time every day, j44.9, # 1 each, 6 Refills, Maintenance, 10/14/22 11:12:00 EDT, Powder, [facility] #[id number], Partial fill upon patient request if the [...] chart review meeting GFR criteria 6Admission to [facility] [place] for [place] 11/2020. Cardiac MRI: LVEF 44%; 12/16/20 echo at [facility] [place]: LVEF=40-45% 8Per CT w/contrast 12/19/2021: Irregular partially calcified tissue along the distal left main pulmonary artery extending along the regular small caliber left lower lobe pulmonary artery branch probably reflecting chronic thrombus.. [id number] as lung mass. S/P R-CHOP x 6 cycles. Social History Social History Type Response Smoking Status Former smoker entered on: 09/06/14 Sex Patient Care team information Care Team Personnel Name: Manuel Mayes MD Position: [facility] Physician - Pulm/Critical Care Member Role: Help Desk Internship Address: Address: [address] [place] [address] [address] [place] [address]- Name: Kenneth Chowdary MD Position: [facility] Cardiology MD Member Role: Dope Mixer Address: Address: [address] [place] [address] [address] [facility] [place] [address]- Name: Robert Feliz MD Position: [facility] Physician - Primary Care Member Role: PCP Address: Address: [address] [place] [address]- [place] Name: Georgette Silva Position: [facility] [place] Laundry Equipment Operator Member Role: Ham Clerk Name: Epi Turner Member Role: Neurologist Name: Mraiposa BROWN, Zi Méndez Position: Reference Physician Member Role: Jigger Operator Address: Address: [address] [place] [address] [address] [facility] [place] [address]- [place] Care Team Related Persons Name: RAMIRO MARR Address: home [address] [place] [address]
--- OUTSIDE RECORDS SUMMARY | 2023-08-31 08:17 | XMS_ITS | Continuity of Care Document ---
Author Organization [facility] Address [address] [address]- Care Team Providers Care Rejogger Name Role Phone Tray BROWN, Robert Anthony Primary Care Physician [phone] [place] [facility] [place] 10/26/19 - 11/25/19 [facility] [address] [address]- [place] Allergies, Adverse Reactions, Alerts Substance [...] [facility] 2Location History: [facility] 3Result Comment: [06/19/2016] [facility] 4Result Comment: [06/19/2016] [...] 1 Refills, Maintenance, 06/01/19 12:03:00 EST, Tablet, [facility] #[id number], 151, cm, 05/23/19 11:27:00 EST, Height, 65.4, [...] 10/03/18 15:01:00 EDT, Route to Pharmacy Electronically, [id number], [facility] [address], J47.9 Start Date: 10/03/18 Status: Ordered ProAir HFA 90 mcg/inh inhalation aerosol with adapter 2, puffs, Inhalation, 4 times a day, PRN, # 1 each, Refills 6, Tot. Refills 6, Maintenance, 05/17/19 14:49:00 EST, Route to Pharmacy Electronically, [id number], [facility] #[id number], 151, cm, 05/17/19 14:23:00 EST, Hei... Start [...]
--- OUTSIDE RECORDS SUMMARY | 2023-08-31 08:17 | XMS_ITS | Continuity of Care Document ---
Author Organization [facility] Address [address] [place] [address]- Care Team Providers Care Budget Record Clerk Name Role Phone Tray BROWN, Robert Anthony Primary Care Physician [place] [facility] [place] 06/02[place]21 - 07/02/21 [facility] [address] [place] [address]- Allergies, Adverse Reactions, Alerts Substance Reaction Severity [...] 3 Refills, Maintenance, 06/27/20 15:48:00 EST, Solution, [facility] #[id number], 151, cm, 02/05/20 7:35:00 EDT, Height Start [...] 5 Refills, Soft Stop, 05/06/21 17:27:00 EST, [facility] #95902, 151, cm, 05/05/21 12:08:00 EST,Height Start Date: [...] Stop 08/02/21 9:58:00 EDT, 08/07/20 9:58:00 EDT, [facility] #85835, J47.[facility]... Start Date: 08/07/20 Stop Date: 08/02/21 Status: Ordered Hyper-Don 7% inhalation solution 4 mL = 0.28 Gm, Neb, 2 times a day, take with 0.5ml = 2.5 mg albuterol (add hypersal 4ml to 0.5ml albuterol) twice a day, # 720 mL, 1 Refills, Maintenance, 08/02/21 9:58:00 EDT, [facility], J47.0 bronchiectasis, 4 mL Neb [...] By Mouth, Daily, prescribed [place] [facility] [place] 12/18/20, # 90 tablet, Refills [...] Mouth, Daily, # 90 tablet, 0 Refills, [facility] #[id number], 151, cm, 12/27/20 8:19:00 EDT, Height Start [...] 01/10/21 13:45:00 EDT, Route to Pharmacy Electronically, [facility] #[id number], Partial fill upon patientrequest if the prescription is for a schedule II op... Start Date: 01/10/21 Status: Ordered ProAir HFA 90 mcg/inh inhalation aerosol with adapter 2, puffs, Inhalation, 4 times a day, PRN, # 1 each, Refills 6, Tot. Refills 6, Maintenance, 08/26/20 14:10:00 EDT, Route to Pharmacy Electronically, [id number], [facility] #[id number], 151, cm, 08/26/20 13:26:00 EDT, Height Start Date: 08/26/20 Status: Ordered rosuvastatin 5 mg oral tablet 1 tablet = 5 mg, By Mouth, Daily, # 30 tablet, 5 Refills, Maintenance, 04/08/21 9:24:00 EST, Tablet, [facility] #[id number], 151, cm, 03/07/21 9:27:00 EST, Height Start Date: 04/08/21 Stop Date: 10/05/21 Status: Ordered Sodium Chloride, Inhalation 0.9% inhalation solution 4 mL = 0.036 Gm, Neb, 2 times a day, use with 0.5% albuterol solution together in nebulizer, # 240 mL, 6 Refills, Maintenance, 06/12/21 19:39:00 EST, [facility] #[id number], Partial fill upon patient request if the [...] Stop07/04/21 9:31:00 EST, 12/06/20 9:31:00 EDT, Powder, [facility] #[id number], Partial fill upon patient request if the [...]
--- OUTSIDE RECORDS SUMMARY | 2023-08-31 08:17 | XMS_ITS | Continuity of Care Document ---
Author Organization [facility] Address [address] [address]- Care Team Providers Care Manager Mission Name Role Phone Tray BROWN, Robert Anthony Primary Care Physician [place] [facility] [place]22 [facility] [address] [address]- Allergies, Adverse Reactions, Alerts Substance Reaction Severity Status codeine Active tetanus toxoid Active sulfa drugs Active Fish Active Immunizations Given and Recorded Vaccine Date Status Refusal Reason [id number] 12y+ bivalent booster vax 08/15/22 Recorded Influenza Virus Vaccine (oldterm) 1 02/03/22 Recor ded SARS-CoV-2 mRNA (ymmpqxw-hgwm-wrjlj) vax 08/06/21 Recorded SARS-CoV-2 (COVID-19) mRNA BNT-162b2 [...] 06/20/12 [facility] 1Result Comment: influenza at [facility] 2Location History: [facility] 3Location History: [facility] 4Result Comment: [06/19/2016] [facility] 5Result Comment: [06/19/2016] [facility] 6Early/Late Reason: Other : 7Result Comment: [06/19/2016] [facility] 8Result Comment: [06/19/2016] [facility] 9Result Comment: [06/19/2016] [facility] 10Result Comment: [06/19/2016] [facility] Medications albuterol 0.083% inhalation solution 3 mL, Inhalation, Every 6 hours, USE ACAPELLA DEVICE AFTER EVERY TREATMENT., # 360 mL, 5 Refills, [facility] #[id number], 151, cm, 09/29/21 13:12:00 EDT, Height, 61.69, kg, 09/29/21 13:11:00 EDT, Dry Weight Start Date: 11/13/21 Status: Ordered bisoprolol 5 mg oral tablet See Instructions, TAKE 1/2 TABLET DAILY, # 45 tablet, 1 Refills, Maintenance, 09/04/22 16:11:00 EDT, [facility], 150, cm, 08/28/22 9:37:00 EDT, Height, 61, kg, 04/17/22 11:31:00 EST, Dry Weight Start Date: 09/04/22 Status: Ordered clopidogrel 75 mg oral tablet 1, tablet, By Mouth, Daily, # 90 Unknown, Refills 0, Tot. Refills 0, Maintenance, 10/19/22 15:23:00EDT, Route to Pharmacy Electronically, [facility], 150, cm, 08/28/22 9:37:00 EDT, Height, 61, kg, 04/17/22 11:31:00 EST, Dry Weight Start Date: 10/19/22 Status: Ordered Lasix 40 mg oral tablet 1, tablet, By Mouth, Daily, # 90 Unknown, Refills 3, Route to Pharmacy Electronically, [facility], 151, cm, 09/29/21 13:12:00 EDT, Height, [...] 12/22/22 10:35:00 EDT, Route to Pharmacy Electronically, [email or web address] #[id number], Partial fill upon patient req... Start Date: 12/22/22 Status: Ordered ProAir HFA 90 mcg/inh inhalation aerosol with adapter 2, puffs, Inhalation, 4 times a day, PRN, # 1 each, Refills 5, Tot. Refills 5, Maintenance, 10/17/21 15:25:00 EDT, Route to Pharmacy Electronically, [id number], [facility] #[id number], 151, cm, 09/29/21 13:12:00 EDT, Hei... Start [...] mL, 0 Refills, Maintenance, 11/27/22 15:51:00 EDT, [facility] #[id number], 12, USE 4 ML VIA NEBULIZER TWICE DAILY USE WITH 0.... Start Date: 11/27/22 Status: Ordered traMADol 50 mg oral tablet 1 tablet = 50 mg, By Mouth, Every 12 hours, PRN for pain, # 30 tablet, 2 Refills, Acute 01/21/23 12:24:00 EDT, 11/20/22 12:24:00 EDT, Tablet, [facility] #[id number], Partial fill upon patient request if the prescription is for a schedule II opioi... Start Date: 11/20/22 Stop Date: 01/21/23 Status: Ordered Trelegy Ellipta 200 mcg-62.5 mcg-25 mcg/inh inhalation powder 1 puffs, Inhalation, Daily, at the same time every day, j44.9, # 1 each, 6 Refills, Maintenance, 10/14/22 11:12:00 EDT, Powder, [facility] #[id number], Partial fill upon patient request if the [...] chart review meeting GFR criteria 6[place] [facility] [place]. Cardiac MRI: LVEF 44%; 12/16/20 [place] [facility] LVEF=40-45% 8Per CT w/contrast 12/19/2021: Irregular partially calcified tissue along the distal left main pulmonary artery extending along the regular small caliber left lower lobe pulmonary artery branch probably reflecting chronic thrombus.. [id number] as lung mass. S/P R-CHOP x 6 cycles. Social History Social History Type Response Smoking Status Former smoker entered on: 09/06/14 Sex Patient Care team information Care Team Personnel Name: Francoise Black RN Position: S RN Member Role: Primary Care Nurse Name: Chiqui Stoll RN Position: S RN Member Role: Primary Care Nurse Name: Robert Feliz MD Position: [facility] Physician - Primary Care Member Role: PCP Address: Address: [address] [place] [address]- Care Team Related Persons Name: RAMIRO MARR Address: home [address] [place] [address]
--- OUTSIDE RECORDS SUMMARY | 2023-08-31 08:17 | XMS_ITS | Continuity of Care Document ---
Author Organization [facility] Zac lt Address [address] [place] [address]- Care Team Providers Care Shop Fitter Name Role Phone Robert Feliz MD Primary Care Physician Encounter [facility] Date(s): 02/11/22 - 02/18/22 [facility] Adult [address] [place] [address]- Attending Physician: Robert Feliz MD Allergies, Adverse Reactions, Alerts Substance Reaction Severity Status codeine Active tetanus toxoid Active sulfa drugs Active Immunizations Given and Recorded Vaccine Date Status Refusal Reason Influenza Virus Vaccine (oldterm) 1 02/03/22 Recor ded SARS-CoV-2 mRNA ([id number]-jnxch) vax 08/06/21 Recorded SARS-CoV-2 (COVID-19) mRNA BNT-162b2 [...] Recorde d 1Result Comment: influenza at [facility] 2Location History: [facility] 3Location History: [facility] 4Result Comment: [06/19/2016] [facility] 5Result Comment: [06/19/2016] [facility] 6Early/Late Reason: Other : 7Result Comment: [06/19/2016] [facility] 8Result Comment: [06/19/2016] [facility] 9Result Comment: [06/19/2016] [facility] 10Result Comment: [06/19/2016] [place] Medications albuterol 0.083% inhalation solution 3 mL, Inhalation, Every 6 hours, USE ACAPELLA DEVICE AFTER EVERY TREATMENT., # 360 mL, 5 Refills, [facility] #[id number], 151, cm, 09/29/21 13:12:00 EDT, Height, 61.69, kg, 09/29/21 13:11:00 EDT, Dry Weight Start Date: 11/13/21 Status: Ordered bisoprolol 5 mg oral tablet 0.5 tablet = 2.5 mg, By Mouth, Daily, # 45 tablet, 3 Refills, Maintenance, 06/12/21 13:52:00 EST, Tablet, [facility], 151, cm, 06/11/21 13:48:00 EST, Height Start Date: 06/12/21 Stop Date: 06/07/22 Status: Ordered clopidogrel 75 mg oral tablet 1, tablet, By Mouth, Daily, # 90 Unknown, Refills 3, Route to Pharmacy Electronically, [facility], 151, cm, 09/29/21 13:12:00 EDT, Height, 61.69, kg, 09/29/21 13:11:00 EDT, Dry Weight Start Date: 11/05/21 Status: Ordered Hyper-Don 7% inhalation solution 4 mL = 0.28 Gm, Neb, 2 times a day, take with 0.5ml = 2.5 mg albuterol (add hypersal 4ml to 0.5ml albuterol) twice a day J47.0, # 720 mL, 1 Refills, Maintenance, 07/28/22 9:58:00 EDT, [id number], J47.0 bronchiectasis, 4 mL Neb 2 times... Start Date: 07/28/22 Status: Ordered Lasix 40 mg oral tablet 1, tablet, By Mouth, Daily, # 90 Unknown, Refills 3, Route to Pharmacy Electronically, [facility], 151, cm, 09/29/21 13:12:00 EDT, Height, 61.69, kg, 09/29/21 13:11:00 EDT, Dry Weight Start Date: 11/05/21 Status: Ordered losartan 25 mg oral tablet 12.5 mg, 0.5, tablet, By Mouth, Daily, Take 0.5 tablet (12.5mg) daily, # 45 tablet, Refills 3, Tot.Refills 3, Maintenance, 06/12/21 13:52:00 EST, Route to Pharmacy Electronically, [facility], 151, cm, 06/11/21 13:48:00 EST, [...] 10/17/21 15:25:00 EDT, Route to Pharmacy Electronically, [id number], [id number], 151, cm, 09/29/21 13:12:00 EDT, Hei... Start Date: 10/17/21 Status: Ordered Sodium Chloride, Inhalation 0.9% inhalation solution 4 mL = 0.036 Gm, Neb, 2 times a day, use with 0.5% albuterol solution together in nebulizer, # 240 mL, 6 Refills, Maintenance, 06/12/21 19:39:00 EST, [facility] #[id number], Partial fill upon patient request if the [...] chart review meeting GFR criteria 5Admission to [facility] for CHF 11/2020. Cardiac MRI: LVEF 44%; 12/16/20 echo at [facility]: LVEF=40-45% [id number] as lung mass. S/P R-CHOP x 6 cycles. Vital Signs Most recent to oldest [Reference Range]: 1 Height 151 cm (02/11/22 8:43 AM) Weight 63 kg (02/11/22 8:43 AM) Oxygen Saturation [94-100 %] 98 % (02/11/22 8:43 AM) Pulse Rate [55-90 bpm] 83 bpm (02/11/22 8:43 AM) Body Mass Index [18.5-24.99 kg/m2] 27.63 kg/m2 *H* (02/11/22 8:43 AM) Blood Pressure [90-138/55-84 mm Hg] 133/ 78mm Hg (02/11/22 8:43 AM) Blood pressure sites Arm, left (02/11/22 8:43 AM) Weight Obtained Via Standing scale (02/11/22 8:43 AM) Social History Social History Type Response Smoking Status Former smoker entered on: 09/06/14 Sex Patient Care team information Personnel Name: Robert Feliz MD Address: Address: [address] [place] [phone]
--- OUTSIDE RECORDS SUMMARY | 2023-08-31 08:17 | XMS_ITS | Continuity of Care Document ---
Author Organization [facility] Address [address] [place] [address]- Care Team Providers Care Observer Helper Name Role Phone Tray BROWN, Robert Anthony Primary Care Physician Encounter [facility] Date(s): 03/04/22 - 04/03/22 [facility] [address] [place] [address]- [place] Encounter Diagnosis Cardiomyopathy, nonischemic-LVEF 40-45%(Discharge Diagnosis) - 03/04/22 CELINE (obstructive sleep apnea)(Discharge Diagnosis) - 03/04/22 Dyspnea(Discharge Diagnosis) - 03/04/22 Lightheaded(Discharge Diagnosis) - 03/04/22 Allergies, Adverse Reactions, Alerts Substance Reaction Severity Status codeine Active tetanus toxoid Active sulfa drugs Active Immunizations Given and Recorded Vaccine Date Status Refusal Reason Influenza Virus Vaccine (oldterm) 1 02/03/22 Recor ded SARS-CoV-2 mRNA (jcwlcax-lqak-imutk) vax 08/06/21 Recorded SARS-CoV-2 (COVID-19) mRNA BNT-162b2 [...] EVERY TREATMENT., # 360 mL, 5 Refills, [facility] #[id number], 151, cm, 09/29/21 13:12:00 EDT, Height, 61.69, kg, 09/29/21 13:11:00 EDT, Dry Weight Start Date: 11/13/21 Status: Ordered amoxicillin 500 mg oral capsule 4 capsule = 2,000 mg, By Mouth, Once, take 4 capsules prior to dental procedure, # 4 capsule, 5 Refills, Soft Stop, 03/09/22 6:10:00 EST, [facility] #[id number], 151, cm, 02/11/22 8:43:00 EDT, Height, 61.69, [...] Unknown, Refills 3, Route to Pharmacy Electronically, [facility], 151, cm, 09/29/21 13:12:00 EDT, Height, 61.69, kg, 09/29/21 13:11:00 EDT, Dry Weight Start Date: 11/05/21 Status: Ordered Hyper-Don 7% inhalation solution 4 mL = 0.28 Gm, Neb, 2 times a day, take with 0.5ml = 2.5 mg albuterol (add hypersal 4ml to 0.5ml albuterol) twice a day J47.0, # 720 mL, 1 Refills, Maintenance, 07/28/22 9:58:00 EDT, [facility] #[id number], J47.0 bronchiectasis, 4 mL Neb 2 times... Start Date: 07/28/22 Status: Ordered Lasix 40 mg oral tablet 1, tablet, By Mouth, Daily, # 90 Unknown, Refills 3, Route to Pharmacy Electronically, [facility], 151, cm, 09/29/21 13:12:00 EDT, Height, 61.69, kg, 09/29/21 13:11:00 EDT, Dry Weight Start Date: 11/05/21 Status: Ordered losartan 25 mg oral tablet 12.5 mg, 0.5, tablet, By Mouth, Daily, Take 0.5 tablet (12.5mg) daily, # 45 tablet, Refills 3, Tot.Refills 3, Maintenance, 06/12/21 13:52:00 EST, Route to Pharmacy Electronically, [facility], 151, cm, 06/11/21 13:48:00 [...] 10/17/21 15:25:00 EDT, Route to Pharmacy Electronically, [id number], [facility] #[id number], 151, cm, 09/29/21 13:12:00 EDT, Hei... Start Date: 10/17/21 Status: Ordered Sodium Chloride, Inhalation 0.9% inhalation solution 4 mL = 0.036 Gm, Neb, 2 times a day, use with 0.5% albuterol solution together in nebulizer, # 240 mL, 6 Refills, Maintenance, 06/12/21 19:39:00 EST, [facility] #[id number], Partial fill upon patient request if the [...] chart review meeting GFR criteria 5Admission to [facility] for CHF 11/2020. Cardiac MRI: LVEF 44%; 12/16/20 echo at [facility]: LVEF=40-45% [id number] as lung mass. S/P R-CHOP x 6 cycles. Diagnosis Diagnosis Type Effective Dates Health Status Clinical Service Informant Cardiomyopathy, nonischemic-LVEF 40-45% Discharge Diagnosis 03/04/22 CELINE (obstructive sleep apnea) Discharge Diagnosis 03/04/22 Dyspnea Discharge Diagnosis 03/04/22 Lightheaded Discharge Diagnosis 03/04/22 Social History Social History Type Response Smoking Status Former smoker entered on: 09/06/14 Sex Cardiology Outpatient Note * Epi BROWN, Kenneth Osborn: PERFORM, MODIFY Event Display: Cardiology Note Office Authored Date: [id number] Patient: ??PARENT, MILLICENT ? Age:??81 Years?Sex:??Female?:??1940?? Patient Hx Cardiology Shared Clinical Summary 1.?History of??B-cell lymphoma, status post treatment with R???CHOP and radiation 2.?? Complex sleep apnea, intolerant of CPAP 3.?? Cardiomyopathy, presumed secondary to??chemotherapy.?? EF 40- 45%??by??cardiac MRI and??recent echo 4.?? History of retinal artery occlusion 10/2020 5.?? Heart failure with mildly reduced ejection fraction 6.?? Carotid artery disease History of Present Illness/Interval History Ms. Marr returns for ongoing care. ?? Patient??reached out to our office??earlier this month with issues of??dizziness/orthostasis as well as shortness of breath.?? There was concern??that there may be a component of dehydration, especially she has had on and off issues with diarrhea for years. ??Ultimately we decreased her furosemid e and??held her bisoprolol.?? With these changes, she has not noticed significant change in symptoms. ??In addition, she also endorses to me??rare left-sided chest pain, although this is??nonexertional.?? She does feel that her symptoms are??different compared to when she had been admitted??with congestive heart failure??last year. ??She denies any orthopnea or edema.?? Review of Systems Pertinent positives as per the HPI.?? Physical Exam Vitals & Measurements Weight lb/oz: 138 lb 14 oz BP 127/72 HR 79 General:??In no acute distress HEENT:??Sclerae anicteric Cardiovascular: ??Regular rhythm, normal first and second heart sounds.?? No murmurs or gallops.?No JVP Respiratory:?Clear to auscultation all lung [place] GI: Normoactive bowel sounds, soft Extremities: Warm,??noedema Neuro:??Nonfocal Psych: Alert and oriented with appropriate affect. Assessment/Plan 1.??Cardiomyopathy, nonischemic-LVEF 40-45% 2.??CELINE (obstructive sleep apnea) 3.??Dyspnea 4.??Lightheaded ?? As above, Ms. Marr is with a constellation of symptoms including??progressive shortness of breath, lightheadedness as well as rare episodic chest pain.?? Not entirely clear to me what the etiology of these are, or if they are abdominal cardiac. ??By exam today she does not appear to be??in congestive heart failure.?? I think at minimum, I would repeat her echocardiogram. ??We also talked about potential ischemic evaluation.?? We discussed if she has ongoing myopathy if it would be worthwhile to do invasive ischemic evaluation such as a catheterization she has never had this. ??We could alsodo right heart cath of the time.?? Patient would prefer to keep testing noninvasive unless we see any concerning findings. ??I think that is reasonable for now. ??We will set her up with an echocardiogram and exercise nuclear stress test. ??Further recommendations to follow. ?? For now, we will??continue to hold??her bisoprolol given her issues??with orthostasis but if we do see??ongoing cardiomyopathy we will try to reintroduce beta-jef in the future. ?? Course some of the symptoms may be related to her untreated CELINE or her underlying pulmonary issues.?I think, though, given her cardiac history??additional??cardiac evaluation is warranted. ?? Plan: 1.?? Refer for echocardiogram, stress test 2.?? Follow-up with advanced practitioner??2-3 months??to review above testing and for further recommendations ?? The above note was prepared with the help of voice recognition software. ??Please excuse any grammatical or spelling errors that may have occurred. ?? Kenneth Chowdary MD [address] [facility], [address] [place] [address] [address] [facility], [address], [place], [place] [id number] [phone] ([phone]) Allergies codeine sulfa drugs tetanus toxoid Home Medications albuterol 0.083% inhalation solution, 3 mL, Inhalation, Every 6 hours, USE ACAPELLA DEVICE AFTER EVERY TREATMENT. bisoprolol 5 mg oral tablet, 2.5 mg= 0.5 tablet, By Mouth, Daily, 3 refills,?Not taking clopidogrel 75 mg oral tablet, 1 tablet, By Mouth, Daily Hyper-Don 7% inhalation solution, 0.28 Gm= 4 mL, Neb, 2 times a day, 1 refills, take with 0.5ml = 2.5 mg albuterol (add hypersal 4ml to 0.5ml albuterol) twice a day J47.0 Lasix 40 mg oral tablet, 1 tablet, By Mouth, Daily losartan 25 mg oral tablet, 12.5 mg= 0.5 tablet, By Mouth, Daily, 3 refills, Take 0.5 tablet (12.5mg) daily Nebulizer/Compressor, See Instructions, 11 refills, E0570 Nebulizer A7003 Neb Disp Set A7014 Neb non-Disp Filter A7005 Neb Non-Disp set A7015 Aerosol Mask A7013 Neb Disp Filter length of need lifetime 99 months DX COPD J44.9 Pepcid Complete, By Mouth, Every 12 hours ProAir HFA 90 mcg/inh inhalation aerosol with adapter, 2 puffs, Inhalation, 4 times a day, PRN, 5 refills Sodium Chloride, Inhalation 0.9% inhalation solution, 0.036 Gm= 4 mL, Neb, 2 times a day, 6 refills, use with 0.5% albuterol solution together in nebulizer Trelegy Ellipta 200 mcg-62.5 mcg-25 mcg/inh inhalation powder, 1 puffs, Inhalation, Daily, 3 refills, at the same time every day, j44.9 Lab Results Cardiology Labs WBC: 6.2 k/mm3 (12/30/21) RBC:??4 m/mm3??Low (12/30/21) Hgb: 12.4 Gm/dL (12/30/21) Hct: 38.1 % (12/30/21) MCV: 95.3 femtoliters (12/30/21) MCH: 31 pg (12/30/21) MCHC:??32.5 g/dL??Low (12/30/21) Platelet Count: 282 k/mm3 (12/30/21) RDW-SD: 46.5 femtoliters (12/30/21) Nucleated RBC (Automated): 0 #/100 WBC'S (12/30/21) Abs. Neut: 4.4 k/mm3 (12/18/21) Abs. Lymph: 2.4 k/mm3 (12/18/21) Abs. [place]: 0.5 k/mm3 (12/18/21) Abs. Eo: 0.2 k/mm3 (12/18/21) Abs. Baso: 0.1 k/mm3 (12/18/21) Neut %: 58.1 % (12/18/21) [place] %: 6.6 % (12/18/21) Eos %: 2.3 % (12/18/21) Baso %: 0.8 % (12/18/21) Imm Gran: 0.4 % (12/18/21) Abs. Imm Gran: 0 k/mm3 (12/18/21) Sodium: 141 mmol/L (12/30/21) Potassium: 4.2 mmol/L (12/30/21) Chloride: 102 mmol/L (12/30/21) Bicarbonate Level: 28 mmol/L (12/30/21) Glucose Level: 89 mg/dL (12/30/21) BUN:??26 mg/dL??High (12/30/21) Creatinine-Blood:??1.2 mg/dL??High (12/30/21) Calcium: 9.8 mg/dL (12/30/21) Protein, Total: 7 Gm/dL (12/30/21) Albumin: 4.5 Gm/dL (12/30/21) Alkaline Phosphatase: 64 units/L (12/30/21) AST (SGOT): 18 units/L (12/30/21) ALT (SGPT): 16 units/L (12/30/21) Bilirubin, Total: 0.4 mg/dL (12/30/21) CK, Total: 68 units/L (07/08/21) Nt-Probnp:??1607 pg/mL??High (12/18/21) Cholesterol: 168 mg/dL (07/08/21) Triglycerides: 62 mg/dL (07/08/21) HDL Cholesterol: 87 mg/dL (07/08/21) LDL Cholesterol: 69 mg/dL (07/08/21) Non HDL Cholesterol: 81 mg/dL (07/08/21) TSH: 2.38 uIU/mL (12/18/21) Diagnostic Impression MRI MRI Cardiac W+W/O Contrast ?? 14:43:57 IMPRESSION: 1. The left ventricular chamber was normal in size. Overall left ventricular systolic function is mildly reduced. Quantitative LVEF 44%. The mid and distal anterior wall and apex are mildly hypokinetic. The basal inferoseptum is mildly hypokinetic. The morphology of the distal anterior wall and apex is abnormal, best described as an apical aneurysm. Normal overall LV wall thickness with decreasedwall thickness in the hypokinetic regions. 2. The RV chamber was normal in size. Overall RV systolic function is mildly reduced. RVEF 45%. Themid to distal RV free wall is hypokinetic. 3. The left atrial size was moderately enlarged. 4. The mitral valve demonstrated mild regurgitation. 5. Delayed postcontrast examination reveals a small area of dense midmural enhancement in the basalinferolateral wall consistent with fibrosis. This nonspecific finding can be observed in nonischemic cardiomyopathy and infiltrative cardiomyopathies. Chemotherapy-induced cardiomyopathy can demonstra te this pattern. No MRI evidence of myocardial infarction. ?? I have personally reviewed the images and I agree with this report. WSN: [id number] ? Ordering Physician: Karrie Candelario ?? Signed By: Navarro Bhakta MD ECG ECG 12-Lead ?? 17:13:41 Ventricular Rate: 77 BPM Atrial Rate: 77 BPM P-R Interval: 150 ms QRS Duration: 94 ms Q-T Interval: 394 ms QTC Calculation(Bazett): 445 ms P Gifford: 20 degrees R Gifford: -38 degrees T Gifford: 80 degrees Normal sinus rhythm Left axis deviation Anteroseptal infarct (cited on or before 04-NOV-2016) Abnormal ECG When compared with ECG of 18-OCT-2019 08:53, No significant change was found Confirmed by KENNETH CHOWDARY MD ([id number]) on 02/11/2022 9:36:29 PM ?? [place]: KENNETH CHOWDARY MD ?? Signed By: Kenneth Chowdary MD Stress Test NM Myocard Perf SPECT Single ?? 01/04/19 09:37:31 Summary Normal. No evidence of stress induced ischemia or prior myocardial infarction. Normal left ventricular ejection fraction, no wall motion abnormalities, normal chamber size. Low likelihood of hemodynamically significant coronary artery disease. ?? Signatures ?? Signed By: Manuel Saini MD Echo Echocardiogram - Complete ?? 10:08:28 Summary The left ventricular ejection fraction is 35-40 %. There is hypokinesis of the inferolateral wall and anterolateral wall. There is akinesis of the basal-mid inferior wall. Grade I-II, mild to moderate diastolic dysfunction with impaired LV relaxation and increased LA pressure. Normal right ventricular size and function. There is trace to mild aortic regurgitation. There is mild mitral stenosis (mean gradient 1-2 mmHg) Mild pulmonary hypertension with PA systolic pressure 30 mmHg (assuming RA pressure of 3 mmHg) ?? Comparison Comparison is made to the study of October 05, 2016. The EF has declined from 50-55% to 35-40%. ?? Signature ?? Signed By: Aquiles Landa MD VL Studies VL Carotid Duplex Scan Bilat ?? 07:03:27 Summary: Right Side: 1-49% stenosis in the Internal Carotid Artery. Antegrade flow in the Vertebral Artery. Biphasic flow is seen in the Subclavian Artery. ?? Left Side: 1-49% stenosis in the Internal Carotid Artery. Antegrade flow in the Vertebral Artery. Biphasic flow is seen in the Subclavian Artery. Comparison is made to the previous ultrasound study dated 12/09/20. ?? 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 Social History Alcohol Use: Current. Frequency: 1-2 times per week. Type: Wine. Binge drinking: No. Alcohol use interfereswith work or home: No. 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 Exercise frequency: 5-6 times/week. Exercise type: Exercise machines, Walking., 06/23/2016 Home/Environment Living situation: Home/Independent. Lives with: Alone., 06/23/2016 Nutrition/Health Diet: Regular. Other: Weight Watchers., 06/23/2016 Tobacco Former smoker, 09/06/2014 Family History No family history recorded. * Epi BROWN, Kenneth Osborn: PERFORM Event Display: Cardiology Note Office Authored Date: [id number] Patient will continue on current furosemide dose at 20 mg as well as low-dose losartan Patient Care team information Care Team Personnel Name: Chiqui Stoll RN Position: [facility] RN Member Role: Primary Care Nurse Name: Robert Feliz MD Position: [facility] Primary Care Physician Member Role: PCP Address: Address: [address] [place] [id number]- Care Team Related Persons Name: PARENTRAMIRO Address: home [address] [place] [id number]
--- OUTSIDE RECORDS SUMMARY | 2023-08-31 08:17 | XMS_ITS | Continuity of Care Document ---
Author Organization [facility] Zac lt Address [address] [place] [address]- Care Team Providers Care Auto Suspension And Steering Mechanic Name Role Phone Robert Feliz MD Primary Care Physician [phone] Encounter [facility] Date(s): 02/10/21 - 02/17/21 [facility] [place] [address] [place] [address]- Attending Physician: Robert Feliz MD Allergies, Adverse [...] 3 Refills, Maintenance, 06/27/20 15:48:00 EST, Solution, [email or web address][id number], 151, cm, 02/05/20 7:35:00 EDT, Height Start Date: 06/27/20 Status: Ordered amoxicillin 500 mg oral capsule 4 capsule = 2,000 mg, By Mouth, Once, take 4 capsules prior to dental procedure, # 4 capsule, 0 Refills, Soft Stop, 08/15/20 16:35:00 EDT, [email or web address] #[id number], 151, cm, 02/05/20 7:35:00 EDT, Height Start Date: 08/15/20 Status: Ordered Hyper-Don 7% inhalation solution 4 mL = 0.28 Gm, Neb, 2 times a day, take with 0.5ml = 2.5 mg albuterol (add hypersal 4ml to 0.5ml albuterol) twice a day, # 240 mL, 11 Refills, Maintenance, 08/07/20 9:58:00 EDT, [email or web address][id number], J47.0 bronchiectasis, 4 mL Neb 2 times a da... Start Date: 08/07/20 Stop Date: 08/02/21 Status: Ordered Lasix 40 mg oral tablet 40 mg, 1, tablet, By Mouth, Daily, prescribed by [facility] doctor 12/18/20, # 30 tablet, Refills 2, Tot. Refills 2, Maintenance, 01/10/21 13:42:00 EDT, Route to Pharmacy Electronically, [email or web address] #[id number], Partial fill upon patient request if th... Start Date: 01/10/21 Status: Ordered losartan 25 mg oral tablet 12.5 mg, 0.5, tablet, By Mouth, Daily, Take 0.5 tablet (12.5mg) daily, # 15 tablet, Refills 11, Tot. Refills 11, Maintenance, 02/05/21 8:59:00 EDT, Route to Pharmacy Electronically, [email or web address] #[id number], Partial fill upon patient request if the... Start Date: 02/05/21 Status: Ordered meloxicam 7.5 mg oral tablet 1 tablet, By Mouth, Daily, # 90 tablet, 0 Refills, [email or web address] #[id number], 151, cm, 12/27/20 8:19:00 EDT, Height Start [...] 01/10/21 13:45:00 EDT, Route to Pharmacy Electronically, [email or web address] #[id number], Partial fill upon patientrequest if the prescription is for a schedule II op... Start Date: 01/10/21 Status: Ordered ProAir HFA 90 mcg/inh inhalation aerosol with adapter 2, puffs, Inhalation, 4 times a day, PRN, # 1 each, Refills 6, Tot. Refills 6, Maintenance, 08/26/20 14:10:00 EDT, Route to Pharmacy Electronically, [id number], [email or web address] #[id number], 151, cm, 08/26/20 13:26:00 EDT, Height Start Date: 08/26/20 Status: Ordered Trelegy Ellipta 200 mcg-62.5 mcg-25 mcg/inh inhalation powder 1 puffs, Inhalation, Daily, at the same time every day, # 1 each, 6 Refills, Maintenance, 12/06/20 9:31:00 EDT, [facility][id number], Partial fill upon patient request if the [...] oldest [Reference Range]: 1 Height 151 cm (02/10/21 10:22 AM) Weight 60.7 kg (02/10/21 10:22 AM) Oxygen Saturation [94-100 %] 97 % (02/10/21 10:22 AM) Pulse Rate [55-90 bpm] 65 bpm (02/10/21 10:22 AM) Body Mass Index [18.5-24.99] 26.62 *H* (02/10/21 10:22 AM) Blood Pressure [90-138/55-84 mm Hg] 126/ 82mm Hg (02/10/21 10:22 AM) Temperature [96.8-100.4 DegF] 98.2 DegF (02/10/21 10:22 AM) Blood pressure sites Arm, right (02/10/21 10:22 AM) Temperature Route Oral (02/10/21 10:22 AM) Weight Obtained Via Standing scale (02/10/21 10:22 AM) Social History Social History Type Response Smoking Status Former smoker entered on: 09/06/14 Sex
--- OUTSIDE RECORDS SUMMARY | 2023-08-31 08:17 | XMS_ITS | Continuity of Care Document ---
Author Organization [facility] Address [address] [place] [address]- Care Team Providers Care Administrative Court Justice Name Role Phone Tray BROWN, Robert Anthony Primary Care Physician [place] [facility] [place] 06/05/21 [facility] [address] [place] [address]- Attending Physician: Kayla ONEAL, Karla Britton Admitting Physician: Kayla ONEAL, Karla Britton Referring Physician: Kenneth Chowdary MD Allergies, Adverse [...] 3 Refills, Maintenance, 06/27/20 15:48:00 EST, Solution, [facility] #[id number], 151, cm, 02/05/20 7:35:00 EDT, Height Start [...] 5 Refills, Soft Stop, 05/06/21 17:27:00 EST, [facility] #[id number], 151, cm, 05/05/21 12:08:00 EST,Height Start Date: [...] Replace Required Details, Route to Pharmacy Electronically, [facility], 151, cm, 05/05/21 12:08:00 EST, Height Start Date: 05/23/21 Status: Ordered Hyper-Don 7% inhalation solution 4 mL = 0.28 Gm, Neb, 2 times a day, for 30 days, take with 0.5ml = 2.5 mg albuterol (add hypersal 4ml to 0.5ml albuterol) twice a day, # 240 mL, 11 Refills, Hard Stop 08/02/21 9:58:00 EDT, 08/07/20 9:58:00 EDT, [facility] #[id number], J47.0 [facility]... Start Date: 08/07/20 Stop Date: 08/02/21 Status: Ordered Hyper-Don 7% inhalation solution 4 mL = 0.28 Gm, Neb, 2 times a day, take with 0.5ml = 2.5 mg albuterol (add hypersal 4ml to 0.5ml albuterol) twice a day, # 720 mL, 1 Refills, Maintenance, 08/02/21 9:58:00 EDT, [facility], J47.0 bronchiectasis, 4 mL Neb [...] 1, tablet, By Mouth, Daily, prescribed by [facility] doctor 12/18/20, # 90 tablet, Refills 1, Tot. Refills 1, Maintenance, 05/23/21 11:14:00 EST, Route to Pharmacy Electronically, [facility], Partial fill upon patient request if the pre... Start Date: 05/23/21 Status: Ordered losartan 25 mg oral tablet 12.5 mg, 0.5, tablet, By Mouth, Daily, Take 0.5 tablet (12.5mg) daily, # 15 tablet, Refills 11, Tot. Refills 11, Maintenance, 02/05/21 8:59:00 EDT, Route to Pharmacy Electronically, [facility] #[id number], Partial fill upon patient request if the... Start Date: 02/05/21 Status: Ordered meloxicam 7.5 mg oral tablet 1 tablet, By Mouth, Daily, # 90 tablet, 0 Refills, [facility] #[id number], 151, cm, 12/27/20 8:19:00 EDT, Height Start [...] 01/10/21 13:45:00 EDT, Route to Pharmacy Electronically, [facility] #[id number], Partial fill upon patientrequest if the prescription is for a schedule II op... Start Date: 01/10/21 Status: Ordered ProAir HFA 90 mcg/inh inhalation aerosol with adapter 2, puffs, Inhalation, 4 times a day, PRN, # 1 each, Refills 6, Tot. Refills 6, Maintenance, 08/26/20 14:10:00 EDT, Route to Pharmacy Electronically, [id number], [facility] #[id number], 151, cm, 08/26/20 13:26:00 EDT, Height Start Date: 08/26/20 Status: Ordered rosuvastatin 5 mg oral tablet 1 tablet = 5 mg, By Mouth, Daily, # 30 tablet, 5 Refills, Maintenance, 04/08/21 9:24:00 EST, Tablet, [facility] #[id number], 151, cm, 03/07/21 9:27:00 EST, Height Start [...] Stop07/04/21 9:31:00 EST, 12/06/20 9:31:00 EDT, Powder, [facility] #[id number], Partial fill upon patient request if the [...]
--- OUTSIDE RECORDS SUMMARY | 2023-08-31 08:17 | XMS_ITS | Continuity of Care Document ---
Author Organization [facility] Address [address] [place] [address]- Care Team Providers Care Sales Superintendent Name Role Phone Tray BROWN, Robert Anthony Primary Care Physician [phone] [place]counter [facility] [place] Date(s): 06/09/21 - 07/09/21 [facility] [address] [place] [address]- Allergies, Adverse Reactions, Alerts Substance Reaction Severity [...] 3 Refills, Maintenance, 06/27/20 15:48:00 EST, Solution, [email or web address] #[id number], 151, cm, 02/05/20 7:35:00 EDT, Height Start Date: 06/27/20 Status: Ordered albuterol 5 mg/mL (0.5%) inhalation solution 0.5 mL = 2.5 mg, Inhalation, 2 times a day, PRN for wheezing, dilute in 4 mL of Hyper-Dno and take twice a day, # 360 mL, 1 Refills, Maintenance, 05/27/21 11:41:00 EST, Solution, [facility], J47.0 bronchiectasis, 151, cm, 05/05/21 12:08:00... Start Date: 05/27/21 Status: Ordered amoxicillin 500 mg oral capsule 4 capsule = 2,000 mg, By Mouth, Once, take 4 capsules prior to dental procedure, # 4 capsule, 5 Refills, Soft Stop, 05/06/21 17:27:00 EST, [facility] #[id number], 151, cm, 05/05/21 12:08:00 EST,Height Start Date: [...] Stop 08/02/21 9:58:00 EDT, 08/07/20 9:58:00 EDT, [facility] #[id number], J47.0 [facility]... Start Date: 08/07/20 Stop Date: 08/02/21 Status: Ordered Hyper-Don 7% inhalation solution 4 mL = 0.28 Gm, Neb, 2 times a day, take with 0.5ml = 2.5 mg albuterol (add hypersal 4ml to 0.5ml albuterol) twice a day, # 720 mL, 1 Refills, Maintenance, 08/02/21 9:58:00 EDT, [facility], J47.0 bronchiectasis, 4 mL Neb [...] tablet, By Mouth, Daily, prescribed by [facility] doctor 12/18/20, # 90 [...] Mouth, Daily, # 90 tablet, 0 Refills, [facility] #[id number], 151, cm, 12/27/20 8:19:00 EDT, Height Start [...] 01/10/21 13:45:00 EDT, Route to Pharmacy Electronically, [email or web address] #[id number], Partial fill upon patientrequest if the prescription is for a schedule II op... Start Date: 01/10/21 Status: Ordered ProAir HFA 90 mcg/inh inhalation aerosol with adapter 2, puffs, Inhalation, 4 times a day, PRN, # 1 each, Refills 6, Tot. Refills 6, Maintenance, 08/26/20 14:10:00 EDT, Route to Pharmacy Electronically, [id number], [facility] #[id number], 151, cm, 08/26/20 13:26:00 EDT, Height Start Date: 08/26/20 Status: Ordered rosuvastatin 5 mg oral tablet 1 tablet = 5 mg, By Mouth, Daily, # 30 tablet, 5 Refills, Maintenance, 04/08/21 9:24:00 EST, Tablet, [facility][id number], 151, cm, 03/07/21 9:27:00 EST, Height Start Date: 04/08/21 Stop Date: 10/05/21 Status: Ordered Sodium Chloride, Inhalation 0.9% inhalation solution 4 mL = 0.036 Gm, Neb, 2 times a day, use with 0.5% albuterol solution together in nebulizer, # 240 mL, 6 Refills, Maintenance, 06/12/21 19:39:00 EST, [facility] #[id number], Partial fill upon patient request if the [...]
--- OUTSIDE RECORDS SUMMARY | 2023-08-31 08:17 | XMS_ITS | Continuity of Care Document ---
Author Organization [facility] Address [address] [place] [address]- Care Team Providers Care Quality Assurance Lab Technician Name Role Phone Tray BROWN, Robert Anthony Primary Care Physician [phone] Encounter [facility] Date(s): 12/21/22 - 01/20/23 [facility] [address] [place] [address]- Allergies, Adverse Reactions, Alerts Substance Reaction Severity Status codeine Active tetanus toxoid Active sulfa drugs Active Fish Active Immunizations Given and Recorded Vaccine Date Status Refusal Reason [id number] 12y+ bivalent booster vax 08/15/22 Recorded Influenza Virus Vaccine (oldterm) 1 02/03/22 Recor ded SARS-CoV-2 mRNA (takwqbx-aykg-mwhzq) vax 08/06/21 Recorded SARS-CoV-2 (COVID-19) mRNA BNT-162b2 [...] 1Result Comment: influenza at [facility] 2Location History: [facility] 3Location History: [facility] 4Result Comment: [06/19/2016] [facility] 5Result Comment: [06/19/2016] [facility] 6Early/Late Reason: Other : 7Result Comment: [06/19/2016] [facility] 8Result Comment: [06/19/2016] [facility] 9Result Comment: [06/19/2016] [facility] 10Result Comment: [06/19/2016] [facility] Medications albuterol 0.083% inhalation solution 3 mL, Inhalation, Every 6 hours, USE ACAPELLA DEVICE AFTER EVERY TREATMENT. J44.9, # 360 mL, 5 Refills, 01/18/23 8:59:00 EDT, [facility] #[id number], J44.9, 150, cm, 01/11/23 10:59:00 EDT, Height, 61, kg, 04/17/22 11:31:00 EST, Dry Weight Start Date: 01/18/23 Status: Ordered bisoprolol 5 mg oral tablet See Instructions, TAKE 1/2 TABLET DAILY, # 45 tablet, 1 Refills, Maintenance, 09/04/22 16:11:00 EDT, [facility], 150, cm, 08/28/22 9:37:00 EDT, Height, 61, kg, 04/17/22 11:31:00 EST, Dry Weight Start Date: 09/04/22 Status: Ordered clopidogrel 75 mg oral tablet 1, tablet, By Mouth, Daily, # 90 Unknown, Refills 0, Tot. Refills 0, Maintenance, 10/19/22 15:23:00EDT, Route to Pharmacy Electronically, [facility], 150, cm, 08/28/22 9:37:00 EDT, Height, 61, kg, 04/17/22 11:31:00 EST, Dry Weight Start Date: 10/19/22 Status: Ordered Lasix 40 mg oral tablet 1, tablet, By Mouth, Daily, # 90 Unknown, Refills 3, Route to Pharmacy Electronically, [facility], 151, cm, 09/29/21 13:12:00 EDT, Height, [...] 12/22/22 10:35:00 EDT, Route to Pharmacy Electronically, [facility] #[id number], Partial fill upon patient req... Start Date: 12/22/22 Status: Ordered ProAir HFA 90 mcg/inh inhalation aerosol with adapter 2, puffs, Inhalation, 4 times a day, PRN, # 1 each, Refills 5, Tot. Refills 5, Maintenance, 10/17/21 15:25:00 EDT, Route to Pharmacy Electronically, [id number], [facility] #[id number], 151, cm, 09/29/21 13:12:00 EDT, Hei... Start [...] mL, 0 Refills, Maintenance, 11/27/22 15:51:00 EDT, [facility] #[id number], 12, USE 4 ML VIA NEBULIZER TWICE DAILY USE WITH 0.... Start Date: 11/27/22 Status: Ordered traMADol 50 mg oral tablet 1 tablet = 50 mg, By Mouth, Every 12 hours, PRN for pain, # 30 tablet, 2 Refills, Acute 01/21/23 12:24:00 EDT, 11/20/22 12:24:00 EDT, Tablet, [facility] #[id number], Partial fill upon patient request if the prescription is for a schedule II opioi... Start Date: 11/20/22 Stop Date: 01/21/23 Status: Ordered Trelegy Ellipta 200 mcg-62.5 mcg-25 mcg/inh inhalation powder 1 puffs, Inhalation, Daily, at the same time every day, j44.9, # 1 each, 6 Refills, Maintenance, 10/14/22 11:12:00 EDT, Powder, [facility] #[id number], Partial fill upon patient request if the [...] pulmonary artery branch probably reflecting chronic thrombus.. [id number]-Tloniczgf as lung mass. S/P R-CHOP x 6 cycles. Social History Social History Type Response Smoking Status Former smoker entered on: 09/06/14 Sex Patient Care team information Care Team Personnel Name: Manuel Mayes MD Position: [facility] Physician - Pulm/Critical Care Member Role: Drugless Doctor Address: Address: [address] [facility] [place] [address]- Name: Kenneth Chowdary MD Position: [facility] Cardiology MD Member Role: Director Learning Address: Address: [address] [place] [address]- Name: Robert Feliz MD Position: [facility] Physician - Primary Care Member Role: PCP Address: Address: [address] [place], [place] [address], [place] [address]- [place] Name: Georgette Silva Position: [facility] Accreditation Manager Member Role: Company Controller Name: Epi Turner Member Role: Neurologist Name: Mariposa BROWN, Zi Méndez Position: Reference Physician Member Role: Business Taxes Specialist Address: Address: [address] [place] [address] [place] [address]- [place] Care Team Related Persons Name: PARENTRAMIRO Address: home [address] [place] [address]
--- OUTSIDE RECORDS SUMMARY | 2023-08-31 08:18 | XMS_ITS | Continuity of Care Document ---
Author Organization [facility] Address [address] [place] [address]- Care Team Providers Care Keg Filler Name Role Phone Tray BROWN, Robert Anthony Primary Care Physician [phone] [place] [facility] [place] [id number] Date(s): 12/30/21 - 01/06/22 [facility] [address] [place] [address]- Encounter Diagnosis Diarrhea(Discharge Diagnosis) - 12/30/21 Attending Physician: Rosa ONEAL, Henrietta Allergies, Adverse Reactions, Alerts Substance Reaction Severity Status codeine Active tetanus toxoid Active sulfa drugs Active Immunizations Given and Recorded Vaccine Date Status Refusal Reason SARS-CoV-2 mRNA (raupgbz-pkxr-vxuov) vax 08/06/21 Recorded SARS-CoV-2 (COVID-19) mRNA BNT-162b2 [...] EVERY TREATMENT., # 360 mL, 5 Refills, [facility] #[id number], 151, cm, 09/29/21 13:12:00 EDT, Height, 61.69, kg, 09/29/21 13:11:00 EDT, Dry Weight Start Date: 11/13/21 Status: Ordered bisoprolol 5 mg oral tablet 0.5 tablet = 2.5 mg, By Mouth, Daily, # 45 tablet, 3 Refills, Maintenance, 06/12/21 13:52:00 EST, Tablet, [facility], 151, cm, 06/11/21 13:48:00 EST, Height Start Date: 06/12/21 Stop Date: 06/07/22 Status: Ordered clopidogrel 75 mg oral tablet 1, tablet, By Mouth, Daily, # 90 Unknown, Refills 3, Route to Pharmacy Electronically, [facility], 151, cm, 09/29/21 13:12:00 EDT, Height, 61.69, kg, 09/29/21 13:11:00 EDT, Dry Weight Start Date: 11/05/21 Status: Ordered Hyper-Don 7% inhalation solution 4 mL = 0.28 Gm, Neb, 2 times a day, take with 0.5ml = 2.5 mg albuterol (add hypersal 4ml to 0.5ml albuterol) twice a day J47.0, # 720 mL, 1 Refills, Maintenance, 07/28/22 9:58:00 EDT, [facility] #[id number], J47.0 bronchiectasis, 4 mL Neb 2 times... Start Date: 07/28/22 Status: Ordered Lasix 40 mg oral tablet 1, tablet, By Mouth, Daily, # 90 Unknown, Refills 3, Route to Pharmacy Electronically, [facility], 151, cm, 09/29/21 13:12:00 EDT, Height, 61.69, kg, 09/29/21 13:11:00 EDT, Dry Weight Start Date: 11/05/21 Status: Ordered losartan 25 mg oral tablet 12.5 mg, 0.5, tablet, By Mouth, Daily, Take 0.5 tablet (12.5mg) daily, # 45 tablet, Refills 3, Tot.Refills 3, Maintenance, 06/12/21 13:52:00 EST, Route to Pharmacy Electronically, [facility], 151, cm, 06/11/21 13:48:00 EST, Height [...] 10/17/21 15:25:00 EDT, Route to Pharmacy Electronically, [id number], [facility] #[id number], 151, cm, 09/29/21 13:12:00 EDT, Hei... Start Date: 10/17/21 Status: Ordered Sodium Chloride, Inhalation 0.9% inhalation solution 4 mL = 0.036 Gm, Neb, 2 times a day, use with 0.5% albuterol solution together in nebulizer, # 240 mL, 6 Refills, Maintenance, 06/12/21 19:39:00 EST, [facility] #[id number], Partial fill upon patient request if the [...] 1-49% stenosis; LICA 1-49% stenosis 4Admission to [facility] for [place] 11/2020. Cardiac MRI: LVEF 44%; 12/16/20 echo at [facility]: LVEF=40-45% 84695-Yeikujnqq as lung mass. S/P R-CHOP x 6 cycles. Diagnosis Diagnosis Type Effective Dates Health Status Cl[facility] Service Informant Diarrhea Discharge Diagnosis 12/30/21 Vital Signs Most recent to oldest [Reference Range]: 1 Height 151 cm (12/30/21 9:02 AM) Social History Social History Type Response Smoking Status Former smoker entered on: 09/06/14 Sex Care Team Personnel Name: Tray BROWN, Robert Anthony Address: [address] [place] [id number]
--- OUTSIDE RECORDS SUMMARY | 2023-08-31 08:18 | XMS_ITS | Continuity of Care Document ---
Author Organization [facility] Address [address] [address]- Care Team Providers Care Vice President For Instruction Name Role Phone Tray BROWN, Robert Anthony Primary Care Physician Encounter [facility] Date(s): 11/26/22 - 12/26/22 [facility] [address] [address]- Allergies, Adverse Reactions, Alerts Substance Reaction Severity Status codeine Active tetanus toxoid Active sulfa drugs Active Fish Active Immunizations Given and Recorded Vaccine Date Status Refusal Reason [id number] 12y+ bivalent booster vax 08/15/22 Recorded Influenza Virus Vaccine (oldterm) 1 02/03/22 Recor ded SARS-CoV-2 mRNA (dweylqq-fnka-ojwis) vax 08/06/21 Recorded SARS-CoV-2 (COVID-19) mRNA BNT-162b2 [...] EVERY TREATMENT., # 360 mL, 5 Refills, [facility] #[id number], 151, cm, 09/29/21 13:12:00 EDT, Height, 61.69, kg, 09/29/21 13:11:00 EDT, Dry Weight Start Date: 11/13/21 Status: Ordered bisoprolol 5 mg oral tablet See Instructions, TAKE 1/2 TABLET DAILY, # 45 tablet, 1 Refills, Maintenance, 09/04/22 16:11:00 EDT, [facility], 150, cm, 08/28/22 9:37:00 EDT, Height, 61, kg, 04/17/22 11:31:00 EST, Dry Weight Start Date: 09/04/22 Status: Ordered clopidogrel 75 mg oral tablet 1, tablet, By Mouth, Daily, # 90 Unknown, Refills 0, Tot. Refills 0, Maintenance, 10/19/22 15:23:00EDT, Route to Pharmacy Electronically, [facility], 150, cm, 08/28/22 9:37:00 [...] 12/22/22 10:35:00 EDT, Route to Pharmacy Electronically, [facility] #[id number], Partial fill upon patient req... Start Date: 12/22/22 Status: Ordered ProAir HFA 90 mcg/inh inhalation aerosol with adapter 2, puffs, Inhalation, 4 times a day, PRN, # 1 each, Refills 5, Tot. Refills 5, Maintenance, 10/17/21 15:25:00 EDT, Route to Pharmacy Electronically, [id number], [facility] #[id number], 151, cm, 09/29/21 13:12:00 EDT, Hei... Start [...] mL, 0 Refills, Maintenance, 11/27/22 15:51:00 EDT, [facility] #[id number], 12, USE 4 ML VIA NEBULIZER TWICE DAILY USE WITH 0.... Start Date: 11/27/22 Status: Ordered traMADol 50 mg oral tablet 1 tablet = 50 mg, By Mouth, Every 12 hours, PRN for pain, # 30 tablet, 2 Refills, Acute 01/21/23 12:24:00 EDT, 11/20/22 12:24:00 EDT, Tablet, [facility] #[id number], Partial fill upon patient request if the prescription is for a schedule II opioi... Start Date: 11/20/22 Stop Date: 01/21/23 Status: Ordered Trelegy Ellipta 200 mcg-62.5 mcg-25 mcg/inh inhalation powder 1 puffs, Inhalation, Daily, at the same time every day, j44.9, # 1 each, 6 Refills, Maintenance, 10/14/22 11:12:00 EDT, Powder, [facility] #[id number], Partial fill upon patient request if the [...] chart review meeting GFR criteria 6Admission [place] [facility] [place]/2020. Cardiac MRI: LVEF 44%; 12/16/20 echo at [facility]: LVEF=40-45% 8Per CT w/contrast 12/19/2021: Irregular partially calcified tissue along the distal left main pulmonary artery extending along the regular small caliber left lower lobe pulmonary artery branch probably reflecting chronic thrombus.. [id number]-Nwxmjerbq as lung mass. S/P R-CHOP x 6 [...] Primary Care Member Role: PCP Address: Address: [address] [place] [address]- Care Team Related Persons Name: RAMIRO MARR Address: home [address] [place] [id number]
--- OUTSIDE RECORDS SUMMARY | 2023-08-31 08:18 | XMS_ITS | Continuity of Care Document ---
Author Organization [facility] Address [address] [place] [address]- Care Team Providers Care Data Officer Name Role Phone Tray BROWN, Robert Anthony Primary Care Physician [place] [facility] Date(s): 12/31/21 - 01/30/22 [facility] [address] [place] [address]- Allergies, Adverse Reactions, Alerts Substance Reaction Severity Status codeine Active tetanus toxoid Active sulfa drugs Active Immunizations Given and Recorded Vaccine Date Status Refusal Reason SARS-CoV-2 mRNA (juqdsnr-xqqa-rfxhz) vax 08/06/21 Recorded SARS-CoV-2 (COVID-19) mRNA BNT-162b2 [...] vaccine 9 06/20/12 Recorded 1Location History: [facility] 2Location History: [facility] 3Result Comment: [06/19/2016] [facility] 4Result Comment: [06/19/2016] [facility] 5Early/Late Reason: Other : 6Result Comment: [06/19/2016] [facility] 7Result Comment: [06/19/2016] [facility] 8Result Comment: [06/19/2016] [facility] 9Result Comment: [06/19/2016] [facility] Medications albuterol 0.083% inhalation solution 3 mL, Inhalation, Every 6 hours, USE ACAPELLA DEVICE AFTER EVERY TREATMENT., # 360 mL, 5 Refills, [facility] #[id number], 151, cm, 09/29/21 13:12:00 EDT, Height, 61.69, [...] Unknown, Refills 3, Route to Pharmacy Electronically, [facility], 151, cm, 09/29/21 13:12:00 EDT, Height, [...] mL, 1 Refills, Maintenance, 07/28/22 9:58:00 EDT, [facility] #[id number], J47.0 bronchiectasis, 4 mL Neb 2 times... Start Date: 07/28/22 Status: Ordered Lasix 40 mg oral tablet 1, tablet, By Mouth, Daily, # 90 Unknown, Refills 3, Route to Pharmacy Electronically, [facility], 151, cm, 09/29/21 13:12:00 EDT, Height, 61.69, kg, 09/29/21 13:11:00 EDT, Dry Weight Start Date: 11/05/21 Status: Ordered losartan 25 mg oral tablet 12.5 mg, 0.5, tablet, By Mouth, Daily, Take 0.5 tablet (12.5mg) daily, # 45 tablet, Refills 3, Tot.Refills 3, Maintenance, 06/12/21 13:52:00 EST, Route to Pharmacy Electronically, [facility], 151, cm, 06/11/21 13:48:00 EST, [...] 10/17/21 15:25:00 EDT, Route to Pharmacy Electronically, [id number], [facility] #[id number], 151, cm, 09/29/21 13:12:00 EDT, Hei... Start Date: 10/17/21 Status: Ordered Sodium Chloride, Inhalation 0.9% inhalation solution 4 mL = 0.036 Gm, Neb, 2 times a day, use with 0.5% albuterol solution together in nebulizer, # 240 mL, 6 Refills, Maintenance, 06/12/21 19:39:00 EST, [facility] #[id number], Partial fill upon patient request if the [...] meeting GFR criteria 5[place] [facility] [place]. Cardiac MRI: LVEF 44%; 12[place]16/[place] [facility] LVEF=40-45% 51909-Sxrbyemxn as lung mass. S/P R-CHOP x 6 cycles. Social History Social History Type Response Smoking Status Former smoker entered on: 09/06/14 Sex Patient Care team information Personnel Name: Tray BROWN, Robert Anthony Address: Address: [address] [place] [id number]
--- OUTSIDE RECORDS SUMMARY | 2023-08-31 08:18 | XMS_ITS | Continuity of Care Document ---
Author Organization [facility] Address [address] [address]- Care Team Providers Care Information Security Analyst Name Role Phone Tray BROWN, Robert Anthony Primary Care Physician [phone] [place] [facility] Date(s): 12/09/20 - 01/08/21 [facility] [address] [address]- [place] Allergies, Adverse Reactions, Alerts Substance Reaction [...] vaccine 9 06/20/12 Recorded 1Location History: [facility]Location [facility]: [facility] 3Result Comment: [06/19/2016] [facility] 4Result Comment: [06/19/2016] riverbend 5Early/Late Reason: Other : 6Result Comment: [06/19/2016] R[facility]BEND 7Result Comment: [06/19/2016] riverbend 8Result Comment: [06/19/2016] riverbend 9Result Comment: [06/19/2016] [facility] Medications albuterol 0.083% inhalation solution 3 mL = 2.5 mg, Inhalation, Every 6 hours, use Acapella device after every treatment, # 120 each, 3 Refills, Maintenance, 06/27/20 15:48:00 EST, Solution, [facility] #[id number], 151, cm, 02/05/20 7:35:00 EDT, Height Start Date: 06/27/20 Status: Ordered amoxicillin 500 mg oral capsule 4 capsule = 2,000 mg, By Mouth, Once, take 4 capsules prior to dental procedure, # 4 capsule, 0 Refills, Soft Stop, 08/15/20 16:35:00 EDT, [facility] #[id number], 151, cm, 02/05/20 7:35:00 EDT, Height Start Date: 08/15/20 Status: Ordered aspirin 81 mg oral tablet, chewable 81 mg, 1, tablet, By Mouth, Daily, # 90 tablet, Refills 3, Tot. Refills 3, Maintenance, 02/05/20 7:58:00 EDT, Route to Pharmacy Electronically, [facility] #[id number], 151, cm, 02/05/20 7:35:00 EDT, Height, 65.4, kg, 05/02/18 11:04:00 EST, Dry We... Start Date: 02/05/20 Status: Ordered Hyper-Don 7% inhalation solution 4 mL = 0.28 Gm, Neb, 2 times a day, take with 0.5ml = 2.5 mg albuterol (add hypersal 4ml to 0.5ml albuterol) twice a day, # 240 mL, 11 Refills, Maintenance, 08/07/20 9:58:00 EDT, [facility]#[id number], J47.0 bronchiectasis, 4 mL Neb 2 times a da... Start Date: 08/07/20 Stop Date: 08/02/21 Status: Ordered Lasix 40 mg oral tablet 40 mg, 1, tablet, By Mouth, Daily, prescribed by [facility] doctor 12/18/20, # 30 tablet, Refills 0, Maintenance, 12/19/20 13:31:00 EDT, Partial fill upon patient request if the prescription is for a schedule II opioid drug. Start Date: 12/19/20 Status: Ordered meloxicam 7.5 mg oral tablet 1 tablet, By Mouth, Daily, # 90 tablet, 0 Refills, [facility] #[id number], 151, cm, 12/27/20 8:19:00 EDT, Height Start [...] 1, tablet, By Mouth, Daily, Prescribed by [facility] doctory 12/18/20 stop asa after on plavix [...] 08/26/20 14:10:00 EDT, Route to Pharmacy Electronically, [id number], [facility] #[id number], 151, cm, 08/26/20 13:26:00 EDT, Height Start [...] 6 Refills, Maintenance, 12/06/20 9:31:00 EDT, Powder, [facility] #[id number], Partial fill upon patient request if the [...]
--- OUTSIDE RECORDS SUMMARY | 2023-08-31 08:18 | XMS_ITS | Continuity of Care Document ---
Author Organization [facility] Address [address] [place] [address]- Care Team Providers Care Corporate Strategy Intern Name Role Phone Trya BROWN, Robert Anthony Primary Care Physician Encounter [facility] Date(s): 05/23/19 - 06/02/19 [facility] [address] [address] Attending Physician: Adithya Sheth Admitting Physician: AdmAdithya de la torre Referring Physician: Admtr, Adithya Allergies, Adverse Reactions, Alerts Substance Reaction Severity [...] vaccine 9 06/20/12 Recorded 1Location History: [facility]Location [facility]: [facility] 3Result Comment: [06/19/2016] ABBY 4Result Comment: [06/19/2016] [...] 1 Refills, Maintenance, 06/01/19 12:03:00 EST, Tablet, [facility] #[id number], 151, cm, 05/23/19 11:27:00 EST, Height, 65.4, [...] 10/03/18 15:01:00 EDT, Route to Pharmacy Electronically, [id number], [facility] [address], J47.9 Start Date: 10/03/18 Status: Ordered ProAir HFA 90 mcg/inh inhalation aerosol with adapter 2, puffs, Inhalation, 4 times a day, PRN, # 1 each, Refills 6, Tot. Refills 6, Maintenance, 05/17/19 14:49:00 EST, Route to Pharmacy Electronically, [id number], [facility] #[id number], 151, cm, 05/17/19 14:23:00 EST, Hei... Start [...]
--- OUTSIDE RECORDS SUMMARY | 2023-08-31 08:18 | XMS_ITS | Continuity of Care Document ---
Author Organization [facility] Address [address] [place] [address]- Care Team Providers Care Adolescent Specialist Name Role Phone Tray BROWN, Robert Anthony Primary Care Physician Encounter [facility] AC[facility] R [id number] Date(s): 07/20/23 - 08/19/23 [facility] Adult [address] [place] [address]- Allergies, Adverse Reactions, Alerts Substance Reaction Severity [...] virus vaccine, inactivated 6 02/09/12 Re corded [id number] 12y+ bivalent booster vax 08/15/22 Recorded Influenza Virus Vaccine (oldterm) 7 02/03/22 Recor ded SARS-CoV-2 mRNA (aaoznbe-wgdo-tezgk) vax 08/06/21 Recorded SARS-CoV-2 (COVID-19) mRNA BNT-162b2 [...] Comment: [06/19/2016] R[facility]END 7Result Comment: influenza at [facility] 8Result Comment: [06/19/2016] riverbend 9Result Comment: [06/19/2016] riverbend 10Result Comment: [06/19/2016] [facility] Medications albuterol 0.083% inhalation solution 3 mL, Inhalation, Every 6 hours, USE ACAPELLA DEVICE AFTER EVERY TREATMENT. J44.9, # 360 mL, 5 Refills, 01/18/23 8:59:00 EDT, [facility] #[id number], J44.9, 150, cm, 01/11/23 10:59:00 EDT, Height, 61, kg, 04/17/22 11:31:00 EST, Dry Weight Start Date: 01/18/23 Status: Ordered bisoprolol 5 mg oral tablet See Instructions, TAKE 1/2 TABLET DAILY, # 45 Unknown, 0 Refills, Maintenance, 02/22/23 7:49:00 EDT, [facility], 150, cm, 01/11/23 10:59:00 EDT, Height, 61, kg, 04/17/22 11:31:00 EST, Dry Weight Start Date: 02/22/23 Status: Ordered clopidogrel 75 mg oral tablet See Instructions, TAKE 1 TABLET DAILY, # 90 Unknown, Refills 0, Maintenance, 02/22/23 7:49:00 EDT, Instructions Replace Required Details, Route to Pharmacy Electronically, [facility], 150, cm, 01/11/23 10:59:00 EDT, Height, [...] 10/17/21 15:25:00 EDT, Route to Pharmacy Electronically, [id number], [facility] #[id number], 151, cm, 09/29/21 13:12:00 EDT, Hei... Start [...] mL, 5 Refills, Maintenance, 02/11/23 9:46:00 EDT, [facility] #[id number], USE 4 ML VIANEBULIZER TWICE DAILY USE [...] chart review meeting GFR criteria 6Admission to [facility] for CHF 11/2020. Cardiac MRI: LVEF 44%; 12/16/20 echo at [facility]: LVEF=40-45% 8Per CT w/contrast 12/19/2021: Irregular partially calcified tissue along the distal left main pulmonary artery extending along the regular small caliber left lower lobe pulmonary artery branch probably reflecting chronic thrombus.. [id number]-Vswliljhn as lung mass. S/P R-CHOP x 6 cycles. Social History Social History Type Response Smoking Status Former smoker entered on: 09/06/14 Sex Patient Care team information Care Team Personnel Name: Manuel Mayes MD Position: [facility] Physician - Pulm/Critical Care Member Role: Securities Sales Associate Address: Address: [address] [place] [address] [address] [facility] [place] [address]- Name: Kenneth Chowdary MD Position: [facility] Cardiology MD Member Role: Machine Stamper Address: Address: [address] [place] [address] [address] [facility] [place] [place] [address]- Name: Robert Feliz MD Position: [facility] Physician - Primary Care Member Role: PCP Address: Address: [address] [place] [address]- [place] Name: Georgette Silva Position: [facility] [place] Automation Technologist Member Role: Program Supervisor Name: Epi Turner Member Role: Neurologist Name: Mariposa BROWN, Zi Méndez Position: Reference Physician Member Role: Retail Merchandiser Technician Address: Address: [address] [place] [address] [address] [facility] [place] [address]- [place] Care Team Related Persons Name: RAMIRO MARR Address: home [address] [place] [address]
--- OUTSIDE RECORDS SUMMARY | 2023-08-31 08:18 | XMS_ITS | Continuity of Care Document ---
Author Organization [facility] Address [address] [place] [address]- Care Team Providers Care It Support Technician Name Role Phone Robert Feliz MD Primary Care Physician [place] [facility] [place] [id number] Date(s): 01/14/23 - 01/21/23 [facility] [address] [place] [address]- Attending Physician: Emilie Reynolds NP Admitting Physician: Emilie Reynolds NP Referring Physician: Robert Feliz MD Allergies, Adverse Reactions, Alerts Substance Reaction Severity Status codeine Active Fish Active tetanus toxoid Active sulfa drugs Active Immunizations Given and Recorded Vaccine Date Status Refusal Reason [id number] 12y+ bivalent booster vax 08/15/22 Recorded Influenza Virus Vaccine (oldterm) 1 02/03/22 Recor ded SARS-CoV-2 mRNA (hlblpkj-olbr-dtcup) vax 08/06/21 Recorded SARS-CoV-2 (COVID-19) mRNA BNT-162b2 [...] [facility] 2Location History: [facility] 3Location History: [facility] 4Result Comment: [06/19/2016] [facility] 5Result Comment: [06/19/2016] riverbend 6Early/Late Reason: Other : 7Result Comment: [06/19/2016] [facility] 8Result Comment: [06/19/2016] riverbend 9Result Comment: [06/19/2016] riverbend 10Result Comment: [06/19/2016] [facility] Medications albuterol 0.083% inhalation solution 3 mL, Inhalation, Every 6 hours, USE ACAPELLA DEVICE AFTER EVERY TREATMENT. J44.9, # 360 mL, 5 Refills, 01/18/23 8:59:00 EDT, [facility] #[id number], J44.9, 150, cm, 01/11/23 10:59:00 EDT, Height, 61, kg, 04/17/22 11:31:00 EST, Dry Weight Start Date: 01/18/23 Status: Ordered bisoprolol 5 mg oral tablet See Instructions, TAKE 1/2 TABLET DAILY, # 45 tablet, 1 Refills, Maintenance, 09/04/22 16:11:00 EDT, [facility], 150, cm, 08/28/22 9:37:00 EDT, Height, 61, kg, 04/17/22 11:31:00 EST, Dry Weight Start Date: 09/04/22 Status: Ordered clopidogrel 75 mg oral tablet 1, tablet, By Mouth, Daily, # 90 Unknown, Refills 0, Tot. Refills 0, Maintenance, 10/19/22 15:23:00EDT, Route to Pharmacy Electronically, [facility], 150, cm, 08/28/22 9:37:00 EDT, Height, 61, kg, 04/17/22 11:31:00 EST, Dry Weight Start Date: 10/19/22 Status: Ordered Lasix 40 mg oral tablet 1, tablet, By Mouth, Daily, # 90 Unknown, Refills 3, Route to Pharmacy Electronically, [facility], 151, cm, 09/29/21 13:12:00 EDT, Height, 61.69, kg, 09/29/21 13:11:00 EDT, Dry Weight Start Date: 11/05/21 Status: Ordered losartan 25 mg oral tablet See Instructions, TAKE 1/2 TABLET DAILY, # 45 tablet, 1 Refills, Maintenance, 09/04/22 16:13:00 EDT, [facility], 150, cm, 08/28/22 9:37:00 EDT, [...] 12/22/22 10:35:00 EDT, Route to Pharmacy Electronically, [facility][id number], Partial fill upon patient req... Start Date: 12/22/22 Status: Ordered ProAir HFA 90 mcg/inh inhalation aerosol with adapter 2, puffs, Inhalation, 4 times a day, PRN, # 1 each, Refills 5, Tot. Refills 5, Maintenance, 10/17/21 15:25:00 EDT, Route to Pharmacy Electronically, [id number], [facility] #[id number], 151, cm, 09/29/21 13:12:00 EDT, Hei... Start [...] mL, 0 Refills, Maintenance, 11/27/22 15:51:00 EDT, [facility] #[id number], 12, USE 4 ML VIA NEBULIZER TWICE DAILY USE WITH 0.... Start Date: 11/27/22 Status: Ordered Trelegy Ellipta 200 mcg-62.5 mcg-25 mcg/inh inhalation powder 1 puffs, Inhalation, Daily, at the same time every day, j44.9, # 1 each, 6 Refills, Maintenance, 10/14/22 11:12:00 EDT, Powder, [facility] #[id number], Partial fill upon patient request if the [...] cardiology presumed secondary to chemotherapy. carotid duplex: TAIT 1-49% stenosis; LICA 1-49% stenosis 5Per chart review meeting GFR criteria 6Admission to [facility] for CHF 11/2020. Cardiac MRI: LVEF 44%; 12/16/20 echo at [facility]: LVEF=40-45% 8Per CT w/contrast 12/19/2021: Irregular partially calcified tissue along the distal left main pulmonary artery extending along the regular small caliber left lower lobe pulmonary artery branch probably reflecting chronic thrombus.. [id number]-Jzglcrcbi as lung mass. S/P R-CHOP x 6 cycles. Social History Social History Type Response Smoking Status Former smoker entered on: 09/06/14 Sex Note * Yuridia Zapata: PERFORM, SIGN, VERIFY Event Display: Patient Education/Instruction Authored Date: [id number] [facility] *[facility] [address] Clinical Summary Name PARENTMILLICENT Age 82 Years 1940 PCP Tray BROWN, Robert Anthony PCP [facility]# [id number] Visit Date 01/14/2023 06:25:00 Additional Instructions: Scheduled Appointments?? Future Appointments ?No Future Appointments Scheduled Follow-Up Instructions ?? With: Address: When: Emilie Reynolds NP 09/24/2022 12:00 AM Comments: 1 YEAR CAROTID SCAN OVH Diagnosis Medications: Please continue your medications until treatment is completed or stopped by your provider. Discuss any questions related to medications with your provider. Medications to Continue with No Changes These medications were not printed or sent to your pharmacy Albuterol (albuterol 0.083% inhalation solution) 3 Milliliter Inhalation every 6 hours. USE ACAPELLA DEVICE AFTER EVERY TREATMENT.. Refills: 5. Next Dose: Albuterol (ProAir HFA 90 mcg/inh inhalation aerosol with adapter) 2 puff(s) Inhalation 4 times a day as needed Wheezing/Shortness of Breath. Refills: 5. Next Dose: Bisoprolol (bisoprolol 5 mg oral tablet) TAKE 1/2 TABLET DAILY. Refills: 1. Next Dose: Calcium Carbonate/Famotidine/Mg Hydroxide (Pepcid Complete) Oral every 12 hours. Next Dose: Clopidogrel (clopidogrel 75 mg oral tablet) 1 tab(s) Oral Daily. Refills: 0. Next Dose: Clopidogrel (Plavix 75 mg oral tablet) 1 tab(s) Oral Daily. short term script until pt receives mail order. Refills: 0. Next Dose: Durable Medical Equipment (Nebulizer/Compressor) E0570 Nebulizer A7003 Neb Disp Set A7014 Neb non-Disp Filter A7005 Neb Non-Disp set A7015 Aerosol Mask A7013 Neb Disp Filter length of need lifetime 99 months DX COPD J44.9. Refills: 11. Next Dose: Durable Medical Equipment (Wheelchair) standard wheelchair with elevated leg rests DX: ALS (G12.21) frequent falls (R29.6) HT: 150 cm WT: 60.6 kg Length of Need: lifetime. Refills: 0. Next Dose: fluticasone/umeclidinium/vilanterol (Trelegy Ellipta 200 mcg-62.5 mcg-25 mcg/inh inhalation powder)1 puff(s) Inhalation Daily. at the same time every day, j44.9. Refills: 6. Next Dose: Furosemide (Lasix 40 mg oral tablet) 1 tab(s) Oral Daily. Refills: 3. Next Dose: Losartan (losartan 25 mg oral tablet) TAKE 1/2 TABLET DAILY. Refills: 1. Next Dose: Riluzole (riluzole 50 mg oral tablet) 1 tab(s) Oral every 12 hours. Next Dose: Sodium Chloride (Sodium Chloride, Inhalation 0.9% inhalation solution) USE 4 ML VIA NEBULIZER TWICEDAILY USE WITH 0.5% VIA INHALER SOLUTION TOGETHER IN VIA NEBULIZER. Refills: 0. Next Dose: Tramadol (traMADol 50 mg oral tablet) 1 tab(s) Oral every 12 hours as needed for pain. Refills: 2. Next Dose: Allergy Info:?? Fish; sulfa drugs; tetanus toxoid; codeine Medications Given This Visit Future Orders ?VL Carotid Duplex Bilat Scan? Order Date:01/14/23?- Complete within?12 months Vital Signs Height Weight BMI Blood Pressure / Temperature Pulse Rate Respiratory Rate 02 Sat Mode of Delivery / You can now view a summary of your hospital visit from the comfort of your home through a free online portal called [employer]ceable. Pieceable is a website that allows you to securely view your medical information including discharge summary, medications and follow-up visits. ??You can alsosend a secure electronic message to your doctor???s office to request appointments, renew medications or just ask a question. You can enroll at [email or web address] or register during your next office visit. Disclaimer:?? The information provided is of a general nature and is intended to be used in conjunction with the recommendations and advice of your health care practitioner. ??Every effort has been made to ensure that the information provided is accurate and complete at the time it is provided to you however, as your needs change, or, as new ??information becomes available, different or additional instructions may be required. If you have questions, please consult with your primary care provider or pharmacist, as appropriate. ??This information is not intended to serve as substitution for assessment and evaluation by a qualified health care provider. If you do not have a primary care provider, you may find a [facility] provider by calling [facility] at [phone]. [facility], in keeping with [facility] guidance, no longer requires face masks for staff, patientsor visitors in most situations. Similar to time spent indoors at other locations, there is the chance that you were exposed to respiratory viruses during your time with us (such as flu or COVID-19).? If you develop symptoms concerning for a viral respiratory infection, please seek testing (and treatment if indicated) from your medical provider or home test kit. For information about the plan of care including goals and instructions for your diagnosis, please see the patient education orders section of this document. Patient Education Materials?? The content of this educational material or handout may have been modified, supplemented, or adapted from its original content and format to support your individualized medical care. Patient Care team information Care Team Personnel Name: Manuel Mayes MD Position: [facility] Physician - Pulm/Critical Care Member Role: Assistant Women'S Tennis Coach Address: Address: [address] [place] [address] [address] [facility] [place] [address]- Name: Kenneth Chowdary MD Position: [facility] Cardiology MD Member Role: Programs Manager Address: Address: [address] [place] [address] [address] [facility] Cardiology [place], [place] [address] Name: Robert Feliz MD Position: [facility] Physician - Primary Care Member Role: PCP Address: Address: [address] [place] [address]- [place] Name: Georgette Silva Position: [facility] Strategic Planning Consultant Member Role: Stevedoring Superintendent Name: Epi Turner Member Role: Neurologist Name: Mariposa BROWN, Zi Méndez Position: Reference Physician Member Role: Contact Assembler Address: Address: [address] [place] [address] [place] [address]- [place] Care Team Related Persons Name: RAMIRO MARR Address: home [address] [place] [id number]
--- OUTSIDE RECORDS SUMMARY | 2023-08-31 08:18 | XMS_ITS | Continuity of Care Document ---
Author Organization [facility] Address [address] [place] [address]- Care Team Providers Care Engineering Vice President Name Role Phone Tray BROWN, Robert Anthony Primary Care Physician [phone] Encounter [facility] Date(s): 09/16/22 - 10/16/22 [facility] [address] [place] [address]- [place] Allergies, Adverse Reactions, Alerts Substance Reaction Severity Status codeine Active tetanus toxoid Active sulfa drugs Active Fish Active Immunizations Given and Recorded Vaccine Date Status Refusal Reason [id number] 12y+ bivalent booster vax 08/15/22 Recorded Influenza Virus Vaccine (oldterm) 1 02/03/22 Recor ded SARS-CoV-2 mRNA (wizxttd-okrv-dogmz) vax 08/06/21 Recorded SARS-CoV-2 (COVID-19) mRNA BNT-162b2 [...] EVERY TREATMENT., # 360 mL, 5 Refills, [facility][id number], 151, cm, 09/29/21 13:12:00 EDT, Height, 61.69, kg, 09/29/21 13:11:00 EDT, Dry Weight Start Date: 11/13/21 Status: Ordered bisoprolol 5 mg oral tablet See Instructions, TAKE 1/2 TABLET DAILY, # 45 tablet, 1 Refills, Maintenance, 09/04/22 16:11:00 EDT, [facility], 150, cm, 08/28/22 9:37:00 EDT, Height, 61, kg, 04/17/22 11:31:00 EST, Dry Weight Start Date: 09/04/22 Status: Ordered clopidogrel 75 mg oral tablet 1, tablet, By Mouth, Daily, # 90 Unknown, Refills 0, Maintenance, 09/01/22 10:17:00 EDT, Route to Pharmacy Electronically, [facility], 150, cm, 08/28/22 9:37:00 EDT, Height, [...] Unknown, Refills 3, Route to Pharmacy Electronically, [facility], 151, cm, 09/29/21 13:12:00 EDT, Height, 61.69, kg, 09/29/21 13:11:00 EDT, Dry Weight Start Date: 11/05/21 Status: Ordered losartan 25 mg oral tablet See Instructions, TAKE 1/2 TABLET DAILY, # 45 tablet, 1 Refills, Maintenance, 09/04/22 16:13:00 EDT, [facility], 150, cm, 08/28/22 9:37:00 EDT, [...] 10/17/21 15:25:00 EDT, Route to Pharmacy Electronically, [id number], [facility] #[id number], 151, cm, 09/29/21 13:12:00 EDT, Hei... Start Date: 10/17/21 Status: Ordered Sodium Chloride, Inhalation 0.9% inhalation solution See Instructions, USE 4 ML VIA NEBULIZER TWICE DAILY USE WITH 0.5% VIA INHALER SOLUTION TOGETHER INVIA NEBULIZER, # 300 mL, 0 Refills, Maintenance, 04/28/22 9:38:00 EST, [facility] #[id number],25, USE 4 ML VIA NEBULIZER TWICE DAILY USE WITH 0.5... Start Date: 04/28/22 Status: Ordered Trelegy Ellipta 200 mcg-62.5 mcg-25 mcg/inh inhalation powder 1 puffs, Inhalation, Daily, at the same time every day, j44.9, # 1 each, 6 Refills, Maintenance, 10/14/22 11:12:00 EDT, Powder, [facility] #[id number], Partial fill upon patient request if the [...] review meeting GFR criteria 6Admission to [facility] [place] 11/2020. Cardiac MRI: LVEF 44%; 12/16/20 echo at [facility]: LVEF=40-45% 8Per CT w/contrast 12/19/2021: Irregular partially calcified tissue along the distal left main pulmonary artery extending along the regular small caliber left lower lobe pulmonary artery branch probably reflecting chronic thrombus.. 93503-Zbnjmuliy as lung mass. S/P R-CHOP x 6 cycles. Social History Social History Type Response Smoking Status Former smoker entered on: 09/06/14 Sex Patient Care team information Care Team Personnel Name: Francoise Black RN Position: [facility] RN Member Role: Primary Care Nurse Name: Chiqui Stoll RN Position: [facility] RN Member Role: Primary Care Nurse Name: Tray BROWN, Robert Anthony Position: [facility] Physician - Primary Care Member Role: PCP Address: Address: [address] [place] [address]- Care Team Related Persons Name: RAMIRO MARR Address: home [address] [place] [address]
--- OUTSIDE RECORDS SUMMARY | 2023-08-31 08:18 | XMS_ITS | Continuity of Care Document ---
Author Organization [facility] Riky Zac lt Address [address] [place] [address]- Care Team Providers Care Aircraft Instrument Mechanic Name Role Phone Robert Feliz MD Primary Care Physician [phone] [place] [facility]20 - 12/02/20 [facility] Adult [address] [place] [address]- Attending Physician: Robert Feliz MD Allergies, Adverse [...] 3 Refills, Maintenance, 06/27/20 15:48:00 EST, Solution, [facility] #[id number], 151, cm, 02/05/20 7:35:00 EDT, Height Start Date: 06/27/20 Status: Ordered amoxicillin 500 mg oral capsule 4 capsule = 2,000 mg, By Mouth, Once, take 4 capsules prior to dental procedure, # 4 capsule, 0 Refills, Soft Stop, 08/15/20 16:35:00 EDT, [facility] #[id number], 151, cm, 02/05/20 7:35:00 EDT, Height Start Date: 08/15/20 Status: Ordered aspirin 81 mg oral tablet, chewable 81 mg, 1, tablet, By Mouth, Daily, # 90 tablet, Refills 3, Tot. Refills 3, Maintenance, 02/05/20 7:58:00 EDT, Route to Pharmacy Electronically, [facility] #[id number], 151, cm, 02/05/20 7:35:00 EDT, Height, 65.4, kg, 05/02/18 11:04:00 EST, Dry We... Start Date: 02/05/20 Status: Ordered Hyper-Don 7% inhalation solution 4 mL = 0.28 Gm, Neb, 2 times a day, take with 0.5ml = 2.5 mg albuterol (add hypersal 4ml to 0.5ml albuterol) twice a day, # 240 mL, 11 Refills, Maintenance, 08/07/20 9:58:00 EDT, [facility]#[id number], J47.0 bronchiectasis, 4 mL Neb 2 times [...] 08/26/20 14:10:00 EDT, Route to Pharmacy Electronically, [id number], [facility] #[id number], 151, cm, 08/26/20 13:26:00 EDT, Height Start [...]
--- OUTSIDE RECORDS SUMMARY | 2023-08-31 08:18 | XMS_ITS | Continuity of Care Document ---
Author Organization [facility] Riky Zac lt Address [address] [place] [address]- Care Team Providers Care Assistant Toddler Teacher Name Role Phone Robert Feliz MD Primary Care Physician [place] [facility] [place] 07/23/23 - 07/30/23 [facility] Adult [address] [place] [address]- Encounter Diagnosis Impaired mobility and ADLs(Discharge Diagnosis) - 07/25/23 ALS (amyotrophic lateral sclerosis)(Discharge Diagnosis) - 07/25/23 Acquired bronchiectasis(Discharge Diagnosis) - 07/25/23 Chronic HFrEF with mildly reduced ejection fraction LVEF 40-45%(Discharge Diagnosis) - 07/25/23 Attending Physician: Robert Feliz MD Allergies, Adverse [...] virus vaccine, inactivated 6 02/09/12 Re corded [id number] 12y+ bivalent booster vax 08/15/22 Recorded Influenza Virus Vaccine (oldterm) 7 02/03/22 Recor ded SARS-CoV-2 mRNA (jtuveae-gctp-aqfli) vax 08/06/21 Recorded SARS-CoV-2 (COVID-19) mRNA BNT-162b2 vac 01/27/21 Recorded SARS-CoV-2 (COVID-19) mRNA BNT-162b2 vac 06/24/20 Given SARS-CoV-2 (COVID-19) mRNA BNT-162b2 vac 06/03/20 Recorded pneumococcal 13-valent vaccine 8 07/29/15 Recorded pneumococcal 13-valent vaccine 9 08/31/12 Recorded Zoster Vaccine Live 08/31/12 Recorded pneumococcal 23-valent vaccine 10 06/20/12 Recorde d 1Location History: [facility] 2Location History: [facility] 3Result Comment: [06/19/2016] JANET 4Result Comment: [06/19/2016] gaylebend 5Early/Late Reason: Other : 6Result Comment: [06/19/2016] [facility] 7Result Comment: influenza at [facility] 8Result Comment: [06/19/2016] riverbend 9Result Comment: [06/19/2016] riverbend 10Result Comment: [06/19/2016] [place] Medications albuterol 0.083% inhalation solution 3 mL, Inhalation, Every 6 hours, USE ACAPELLA DEVICE AFTER EVERY TREATMENT. J44.9, # 360 mL, 5 Refills, 01/18/23 8:59:00 EDT, [facility] #[id number], J44.9, 150, cm, 01/11/23 10:59:00 EDT, Height, [...] 10/17/21 15:25:00 EDT, Route to Pharmacy Electronically, [id number], [facility] #[id number], 151, cm, 09/29/21 13:12:00 EDT, Hei... Start [...] mL, 5 Refills, Maintenance, 02/11/23 9:46:00 EDT, [facility] #[id number], USE 4 ML VIANEBULIZER TWICE DAILY USE [...] chart review meeting GFR criteria 6Admission to [facility] [place] 11/2020. Cardiac MRI: LVEF 44%; 12/16/20 echo at [facility]: LVEF=40-45% 8Per CT w/contrast 12/19/2021: Irregular partially calcified tissue along the distal left main pulmonary artery extending along the regular small caliber left lower lobe pulmonary artery branch probably reflecting chronic thrombus.. [id number]-Lpqgetkio as lung mass. S/P R-CHOP x 6 cycles. Diagnosis Diagnosis Type Effective Dates Health Status Clinical Service Informant Impaired mobility and ADLs Discharge Diagnosis 07/25/23 ALS (amyotrophic lateral sclerosis) Discharge Diagnosis 07/25/23 Acquired bronchiectasis Discharge Diagnosis 07/25/23 Chronic HFrEF with mildly reduced ejection fraction LVEF 40-45% Discharge Diagnosis 07/25/23 Vital Signs Most recent to oldest [Reference Range]: 1 Height 150.0 cm (07/23/23 2:33 PM) Oxygen Saturation [94-100 %] 96 % (07/23/23 2:33 PM) Pulse Rate [55-90 bpm] 74 bpm (07/23/23 2:33 PM) Blood Pressure [90-138/55-84 mm Hg] 97/6 5mm Hg (07/23/23 2:33 PM) Mode of Delivery (Oxygen) Room air (07/23/23 2:33 PM) Blood pressure sites Arm, left (07/23/23 2:33 PM) Social History Social History Type Response Smoking Status Former smoker entered on: 09/06/14 Sex Patient Care team information Care Team Personnel Name: Manuel Mayes MD Position: [facility] Physician - Pulm/Critical Care Member Role: Business School Dean Address: Address: [address] [place] [address] [address] [facility] [place] [address]- [place] Name: Kenneth Chowdary MD Position: [facility] Cardiology MD Member Role: Certified Marine Mechanic Address: Address: [address] [place] [address] [address] [facility] [place] [address]- [place] Name: Tray BROWN, Robert Anthony Position: [facility] Physician - Primary Care Member Role: PCP Address: Address: [address] [place] [address]- [place] Name: Georgette Silva Position: [facility] Gas Station Operator Member Role: Demand Manager Name: Epi Turner Member Role: Neurologist Name: Mariposa BROWN, Zi Méndez Position: Reference Physician Member Role: Security Strategist Address: Address: [address] [facility] [place] [address]- [place] Care Team Related Persons Name: RAMIRO MARR Address: home [address] [place] [id number]
--- OUTSIDE RECORDS SUMMARY | 2023-08-31 08:18 | XMS_ITS | Continuity of Care Document ---
Author Organization [facility] Address [address] [place] [address]- Care Team Providers Care Vulcanizer Rubber Plate Name Role Phone Tray BROWN, Robert Anthony Primary Care Physician [place] [facility] [place] 02[place]02[place]21 [facility] [address] [place] [address]- [place] Allergies, Adverse Reactions, Alerts Substance Reaction [...] Albert 2Location History: MANJUS 3Result Comment: [06/19/2016] ABBY 4Result Comment: [06/19/2016] abby 5Early/Late Reason: Other : 6Result Comment: [06/19/2016] [place] 7Result Comment: [06/19/2016] riverbend 8Result Comment: [06/19/2016] riverbend 9Result Comment: [06/19/2016] [place] Medications albuterol 0.083% inhalation solution 3 mL = 2.5 mg, Inhalation, Every 6 hours, use Acapella device after every treatment, # 120 each, 3 Refills, Maintenance, 06/27/20 15:48:00 EST, Solution, [facility] #[id number], 151, cm, 02/05/20 7:35:00 EDT, Height Start Date: 06/27/20 Status: Ordered amoxicillin 500 mg oral capsule 4 capsule = 2,000 mg, By Mouth, Once, take 4 capsules prior to dental procedure, # 4 capsule, 0 Refills, Soft Stop, 08/15/20 16:35:00 EDT, [facility] #[id number], 151, cm, 02/05/20 7:35:00 EDT, Height Start Date: 08/15/20 Status: Ordered Hyper-Don 7% inhalation solution 4 mL = 0.28 Gm, Neb, 2 times a day, take with 0.5ml = 2.5 mg albuterol (add hypersal 4ml to 0.5ml albuterol) twice a day, # 240 mL, 11 Refills, Maintenance, 08/07/20 9:58:00 EDT, [facility]#38631, J47.0 bronchiectasis, 4 mL Neb 2 times a da... Start Date: 08/07/20 Stop Date: 08/02/21 Status: Ordered Lasix 40 mg oral tablet 40 mg, 1, tablet, By Mouth, Daily, prescribed by [facility] doctor 12/18/20, # 30 tablet, Refills 2, Tot. Refills 2, Maintenance, 01/10/21 13:42:00 EDT, Route to Pharmacy Electronically, [facility] #[id number], Partial fill upon patient request if th... Start Date: 01/10/21 Status: Ordered meloxicam 7.5 mg oral tablet 1 tablet, By Mouth, Daily, # 90 tablet, 0 Refills, [facility] #36150, 151, cm, 12/27/20 8:19:00 EDT, Height Start [...] 01/10/21 13:45:00 EDT, Route to Pharmacy Electronically, [facility] #[id number], Partial fill upon patientrequest if the prescription is for a schedule II op... Start Date: 01/10/21 Status: Ordered ProAir HFA 90 mcg/inh inhalation aerosol with adapter 2, puffs, Inhalation, 4 times a day, PRN, # 1 each, Refills 6, Tot. Refills 6, Maintenance, 08/26/20 14:10:00 EDT, Route to Pharmacy Electronically, [id number], [facility] #[id number], 151, cm, 08/26/20 13:26:00 EDT, Height Start Date: 08/26/20 Status: Ordered Trelegy Ellipta 200 mcg-62.5 mcg-25 mcg/inh inhalation powder 1 puffs, Inhalation, Daily, at the same time every day, # 1 each, 6 Refills, Maintenance, 12/06/20 9:31:00 EDT, Powder, [facility] #[id number], Partial fill upon patient request if the [...]
--- OUTSIDE RECORDS SUMMARY | 2023-08-31 08:18 | XMS_ITS | Continuity of Care Document ---
Author Organization [facility] Zac lt Address [address] [place] [address]- Care Team Providers Care Warehouse Foreman Name Role Phone Tray BROWN, Robert Anthony Primary Care Physician [phone] Encounter [facility] Date(s): 12/30/21 - 01/29/22 [facility] Adult [address] [place] [address]- Allergies, Adverse Reactions, Alerts Substance Reaction Severity Status codeine Active tetanus toxoid Active sulfa drugs Active Immunizations Given and Recorded Vaccine Date Status Refusal Reason SARS-CoV-2 mRNA (nokvgxx-fcmq-rwrfv) vax 08/06/21 Recorded SARS-CoV-2 (COVID-19) mRNA BNT-162b2 [...] vaccine 9 06/20/12 Recorded 1Location History: [facility] 2Location History: [facility] 3Result Comment: [06/19/2016] [place] 4Result Comment: [06/19/2016] [facility]end 5Early/Late Reason: Other : 6Result Comment: [06/19/2016] [place] 7Result Comment: [06/19/2016] riverbend 8Result Comment: [06/19/2016] [facility]bend 9Result Comment: [06/19/2016] [place] Medications albuterol 0.083% inhalation solution 3 mL, Inhalation, Every 6 hours, USE ACAPELLA DEVICE AFTER EVERY TREATMENT., # 360 mL, 5 Refills, [facility] #[id number], 151, cm, 09/29/21 13:12:00 EDT, Height, 61.69, [...] Unknown, Refills 3, Route to Pharmacy Electronically, [facility], 151, cm, 09/29/21 13:12:00 EDT, Height, [...] 0.5ml albuterol) twice a day J47.0, # 787 mL, 1 Refills, Maintenance, 07/28/22 9:58:00 EDT, [facility] #17894, J47.0 bronchiectasis, 4 mL Neb 2 times... Start Date: 07/28/22 Status: Ordered Lasix 40 mg oral tablet 1, tablet, By Mouth, Daily, # 90 Unknown, Refills 3, Route to Pharmacy Electronically, [facility], 151, cm, 09/29/21 13:12:00 EDT, Height, 61.69, kg, 09/29/21 13:11:00 EDT, Dry Weight Start Date: 11/05/21 Status: Ordered losartan 25 mg oral tablet 12.5 mg, 0.5, tablet, By Mouth, Daily, Take 0.5 tablet (12.5mg) daily, # 45 tablet, Refills 3, Tot.Refills 3, Maintenance, 06/12/21 13:52:00 EST, Route to Pharmacy Electronically, [facility], 151, cm, 06/11/21 13:48:00 EST, [...] 10/17/21 15:25:00 EDT, Route to Pharmacy Electronically, [id number], [facility] #75169, 151, cm, 09/29/21 13:12:00 EDT, Hei... Start Date: 10/17/21 Status: Ordered Sodium Chloride, Inhalation 0.9% inhalation solution 4 mL = 0.036 Gm, Neb, 2 times a day, use with 0.5% albuterol solution together in nebulizer, # 240 mL, 6 Refills, Maintenance, 06/12/21 19:39:00 [id number], Partial fill upon patient request if the [...] chart review meeting GFR criteria 5[place] [facility] [place] 11[place]2020. Cardiac MRI: LVEF 44%; 12/16/20 echo at [facility]: LVEF=40-45% [address]-Haeuiodcb as lung mass. S/P R-CHOP x 6 cycles. Social History Social History Type Response Smoking Status Former smoker entered on: 09/06/14 Sex Patient Care team information Personnel Name: Tray BROWN, Robert Anthony Address: Address: [address] [place] [id number]
--- OUTSIDE RECORDS SUMMARY | 2023-08-31 08:18 | XMS_ITS | Continuity of Care Document ---
Author Organization [facility] Address [address] [address]- Care Team Providers Care Non Destructive Testing Technician Name Role Phone Tray BROWN, Robert Anthony Primary Care Physician En[place] [facility] [place] Date(s): 02/17/23 - 03/19/23 [facility] [address] [address]- Allergies, Adverse Reactions, Alerts Substance Reaction Severity Status codeine Active tetanus toxoid Active sulfa drugs Active Fish Active Immunizations Given and Recorded Vaccine Date Status Refusal Reason [id number] 12y+ bivalent booster vax 08/15/22 Recorded Influenza Virus Vaccine (oldterm) 1 02/03/22 Recor ded SARS-CoV-2 mRNA (fpynmrv-hpow-krjmz) vax 08/06/21 Recorded SARS-CoV-2 (COVID-19) mRNA BNT-162b2 [...] 06/20/12 [facility] monica 1Result Comment: influenza at [facility] 2Location History: [facility] Albert [...] 360 mL, 5 Refills, 01/18/23 8:59:00 EDT, [facility] #45265, J44.9, 150, cm, 01/11/23 10:59:00 EDT, Height, 61, kg, 04/17/22 11:31:00 EST, Dry Weight Start Date: 01/18/23 Status: Ordered bisoprolol 5 mg oral tablet See Instructions, TAKE 1/2 TABLET DAILY, # 45 Unknown, 0 Refills, Maintenance, 02/22/23 7:49:00 EDT, [facility], 150, cm, 01/11/23 10:59:00 EDT, Height, 61, kg, 04/17/22 11:31:00 EST, Dry Weight Start Date: 02/22/23 Status: Ordered clopidogrel 75 mg oral tablet See Instructions, TAKE 1 TABLET DAILY, # 90 Unknown, Refills 0, Maintenance, 02/22/23 7:49:00 EDT, Instructions Replace Required Details, Route to Pharmacy Electronically, [facility], 150, cm, 01/11/23 10:59:00 EDT, Height, [...] 10/17/21 15:25:00 EDT, Route to Pharmacy Electronically, [id number], [facility] #[id number], 151, cm, 09/29/21 13:12:00 EDT, Hei... Start [...] mL, 5 Refills, Maintenance, 02/11/23 9:46:00 EDT, [facility] #23443, USE 4 ML VIANEBULIZER TWICE DAILY USE [...] meeting GFR criteria 6Admission to [facility] for CHF 11/2020. Cardiac MRI: LVEF 44%; 12/16/20 echo at [facility]: LVEF=40-45% 8Per CT w/contrast 12/19/2021: Irregular partially calcified tissue along the distal left main pulmonary artery extending along the regular small caliber left lower lobe pulmonary artery branch probably reflecting chronic thrombus.. [address]-Guqorvvji as lung mass. S/P R-CHOP x 6 cycles. Social History Social History Type Response Smoking Status Former smoker entered on: 09/06/14 Sex Patient Care team information Care Team Personnel Name: Manuel Mayes MD Position: [facility] Physician - Pulm/Critical Care Member Role: Resources Representative Address: Address: [address] [place] [address] [address] [place] [address]- Name: Kenneth Chowdary MD Position: [facility] Cardiology MD Member Role: Abrasive Grinder Address: Address: [address] [place] [address] [address] [place] [address]- [place] Name: Robert Feliz MD Position: [facility] Physician - Primary Care Member Role: PCP Address: Address: [address] [place] [address]- [place] Name: Georgette Silva Position: [facility] Printing Mechanist Member Role: Manager Technical Services Name: Epi Turner Member Role: Neurologist Name: Mariposa BROWN, Zi Méndez Position: Reference Physician Member Role: Mobile Equipment Servicer Address: Address: [address] [place] [address] [address] [facility] [place] [address]- [place] Care Team Related Persons Name: RAMIRO MARR Address: home [address] [place] [id number]
--- OUTSIDE RECORDS SUMMARY | 2023-08-31 08:18 | XMS_ITS | Continuity of Care Document ---
Author Organization [facility] Zac lt Address [address] [place] [address]- Care Team Providers Care Wind Technician Name Role Phone Robert Feliz MD Primary Care Physician [phone] Encounter [facility] Date(s): 09/13/19 - 02/21/20 [facility] Adult [address] [place] [address]- [facility] Attending Physician: Robert Feliz MD Allergies, Adverse [...] 0 Refills, Soft Stop, 12/27/19 12:56:00 EDT, [facility] #07476, 151, cm, 11/22/19 11:48:00 EDT,Height, 65.4, kg, 05/02/18 11:04:00 EST, Dry Weight Start Date: 12/27/19 Status: Ordered aspirin 81 mg oral tablet, chewable 81 mg, 1, tablet, By Mouth, Daily, # 90 tablet, Refills 3, Tot. Refills 3, Maintenance, 02/05/20 7:58:00 EDT, Route to Pharmacy Electronically, [facility] #23955, 151, cm, 02/05/20 7:35:00 EDT, Height, 65.4, kg, 05/02/18 11:04:00 EST, Dry We... Start Date: 02/05/20 Status: Ordered meloxicam 7.5 mg oral tablet 1 tablet = 7.5 mg, By Mouth, Daily, # 90 tablet, 1 Refills, Maintenance, 01/05/20 8:12:00 EDT, Tablet, [facility] #49344, 151, cm, 11/22/19 11:48:00 EDT, Height, 65.4, [...] 05/17/19 14:49:00 EST, Route to Pharmacy Electronically, [id number], [facility] #[id number], 151, cm, 05/17/19 14:23:00 EST, Hei... Start [...]
--- OUTSIDE RECORDS SUMMARY | 2023-08-31 08:18 | XMS_ITS | Continuity of Care Document ---
Author Organization [facility] Address [address] [address]- Care Team Providers Care Artist Color Separation Name Role Phone Tray BROWN, Robert Anthony Primary Care Physician [place] [facility] [place]19[place] 09/18/20 [facility] [address] [address]- [place] Allergies, Adverse Reactions, Alerts Substance Reaction [...] 3 Refills, Maintenance, 06/27/20 15:48:00 EST, Solution, [facility] #55320, 151, cm, 02/05/20 7:35:00 EDT, Height Start Date: 06/27/20 Status: Ordered amoxicillin 500 mg oral capsule 4 capsule = 2,000 mg, By Mouth, Once, take 4 capsules prior to dental procedure, # 4 capsule, 0 Refills, Soft Stop, 08/15/20 16:35:00 EDT, [facility] #63463, 151, cm, 02/05/20 7:35:00 EDT, Height Start Date: 08/15/20 Status: Ordered aspirin 81 mg oral tablet, chewable 81 mg, 1, tablet, By Mouth, Daily, # 90 tablet, Refills 3, Tot. Refills 3, Maintenance, 02/05/20 7:58:00 EDT, Route to Pharmacy Electronically, [facility] #87460, 151, cm, 02/05/20 7:35:00 EDT, Height, 65.4, kg, 05/02/18 11:04:00 EST, Dry We... Start Date: 02/05/20 Status: Ordered Hyper-Don 7% inhalation solution 4 mL = 0.28 Gm, Neb, 2 times a day, take with 0.5ml = 2.5 mg albuterol (add hypersal 4ml to 0.5ml albuterol) twice a day, # 240 mL, 11 Refills, Maintenance, 08/07/20 9:58:00 EDT, [facility]#15947, J47.0 bronchiectasis, 4 mL Neb 2 times a da... Start Date: 08/07/20 Stop Date: 08/02/21 Status: Ordered meloxicam 7.5 mg oral tablet 1 tablet, By Mouth, Daily, # 90 tablet, 0 Refills, Maintenance, 07/01/20 12:15:00 EST, [facility] #90955, 151, cm, 02/05/20 7:35:00 EDT, Height Start [...] 08/26/20 14:10:00 EDT, Route to Pharmacy Electronically, [id number], [facility] #36407, 151, cm, 08/26/20 13:26:00 EDT, Height Start [...]
--- OUTSIDE RECORDS SUMMARY | 2023-08-31 08:18 | XMS_ITS | Continuity of Care Document ---
Author Organization [facility] Z[facility] lt Address [address] [place] [address]- Care Team Providers Care Academic Vice President Name Role Phone Tray BROWN, Robert Anthony Primary Care Physician Encounter [facility] Date(s): 12/23/22 - 01/22/23 [facility] [address] [place] [address]- Allergies, Adverse Reactions, Alerts Substance Reaction Severity Status codeine Active tetanus toxoid Active sulfa drugs Active Fish Active Immunizations Given and Recorded Vaccine Date Status Refusal Reason [id number] 12y+ bivalent booster vax 08/15/22 Recorded Influenza Virus Vaccine (oldterm) 1 02/03/22 Recor ded SARS-CoV-2 mRNA (ciwlsac-jbve-npfmr) vax 08/06/21 Recorded SARS-CoV-2 (COVID-19) mRNA BNT-162b2 [...] 06/20/12 Sigifredo anderson 1Result Comment: influenza at [facility] 2Location History: [facility] 3Location History: [facility] 4Result Comment: [06/19/2016] [place] 5Result Comment: [06/19/2016] riverbend 6Early/Late Reason: Other : 7Result Comment: [06/19/2016] RIVERBEND 8Result Comment: [06/19/2016] riverbend 9Result Comment: [06/19/2016] riverbend 10Result Comment: [06/19/2016] RIVERBEND Medications albuterol 0.083% inhalation solution 3 mL, Inhalation, Every 6 hours, USE ACAPELLA DEVICE AFTER EVERY TREATMENT. J44.9, # 360 mL, 5 Refills, 01/18/23 8:59:00 EDT, [facility] #[id number], J44.9, 150, cm, 01/11/23 10:59:00 EDT, Height, 61, kg, 04/17/22 11:31:00 EST, Dry Weight Start Date: 01/18/23 Status: Ordered bisoprolol 5 mg oral tablet See Instructions, TAKE 1/2 TABLET DAILY, # 45 tablet, 1 Refills, Maintenance, 09/04/22 16:11:00 EDT, [facility], 150, cm, 08/28/22 9:37:00 EDT, Height, 61, kg, 04/17/22 11:31:00 EST, Dry Weight Start Date: 09/04/22 Status: Ordered clopidogrel 75 mg oral tablet 1, tablet, By Mouth, Daily, # 90 Unknown, Refills 0, Tot. Refills 0, Maintenance, 10/19/22 15:23:00EDT, Route to Pharmacy Electronically, [facility], 150, cm, 08/28/22 9:37:00 EDT, Height, 61, kg, 04/17/22 11:31:00 EST, Dry Weight Start Date: 10/19/22 Status: Ordered Lasix 40 mg oral tablet 1, tablet, By Mouth, Daily, # 90 Unknown, Refills 3, Route to Pharmacy Electronically, [facility], 151, cm, 09/29/21 13:12:00 EDT, Height, 61.69, kg, 09/29/21 13:11:00 EDT, Dry Weight Start Date: 11/05/21 Status: Ordered losartan 25 mg oral tablet See Instructions, TAKE 1/2 TABLET DAILY, # 45 tablet, 1 Refills, Maintenance, 09/04/22 16:13:00 EDT, [facility], 150, cm, 08/28/22 9:37:00 EDT, [...] 12/22/22 10:35:00 EDT, Route to Pharmacy Electronically, [facility] #[id number], Partial fill upon patient req... Start Date: 12/22/22 Status: Ordered ProAir HFA 90 mcg/inh inhalation aerosol with adapter 2, puffs, Inhalation, 4 times a day, PRN, # 1 each, Refills 5, Tot. Refills 5, Maintenance, 10/17/21 15:25:00 EDT, Route to Pharmacy Electronically, [id number], [facility] #[id number], 151, cm, 09/29/21 13:12:00 EDT, Hei... Start [...] mL, 0 Refills, Maintenance, 11/27/22 15:51:00 EDT, [facility] #[id number], 12, USE 4 ML VIA NEBULIZER TWICE DAILY USE WITH 0.... Start Date: 11/27/22 Status: Ordered Trelegy Ellipta 200 mcg-62.5 mcg-25 mcg/inh inhalation powder 1 puffs, Inhalation, Daily, at the same time every day, j44.9, # 1 each, 6 Refills, Maintenance, 10/14/22 11:12:00 EDT, Powder, [facility] #[id number], Partial fill upon patient request if the [...] pulmonary artery branch probably reflecting chronic thrombus.. 22772-Qhziazewj as lung mass. S/P R-CHOP x 6 cycles. Social History Social History Type Response Smoking Status Former smoker entered on: 09/06/14 Sex Patient Care team information Care Team Personnel Name: Manuel Mayes MD Position: [facility] Physician - Pulm/Critical Care Member Role: Radio Electronics Technician Address: Address: [address] [place] [address] [address] [facility] [place] [address]- Name: Kenneth Chowdary MD Position: [facility] Cardiology MD Member Role: Jr. Systems Administrator Address: Address: [address] [place] [address] [address] [facility] [place] [address]- Name: Robert Feliz MD Position: [facility] Physician - Primary Care Member Role: PCP Address: Address: [address] [place] [address]- [place] Name: Georgette Silva Position: [facility] [place] Canvassing Manager Member Role: Director Enterprise Data Architecture Name: Epi Turner Member Role: Neurologist Name: Mariposa BROWN, Zi Méndez Position: Reference Physician Member Role: Personal Care Aide Address: Address: [address] [place] [address] [address] [facility] [place] [address]- [place] Care Team Related Persons Name: RAMIRO MARR Address: home [address] [place] [address]
--- OUTSIDE RECORDS SUMMARY | 2023-08-31 08:18 | XMS_ITS | Continuity of Care Document ---
Author Organization [facility] Zac lt Address [address] [place] [address]- Care Team Providers Care Tape Calender Name Role Phone Tray BROWN, Robert Anthony Primary Care Physician Encounter [facility] Date(s): 07/27/22 - 08/26/22 [facility] [address] [place] [address]- Allergies, Adverse Reactions, Alerts Substance Reaction Severity Status codeine Active tetanus toxoid Active sulfa drugs Active Fish Active Immunizations Given and Recorded Vaccine Date Status Refusal Reason Influenza Virus Vaccine (oldterm) 1 02/03/22 Recor ded SARS-CoV-2 mRNA (dnzlcfl-dvik-oowmg) vax 08/06/21 Recorded SARS-CoV-2 (COVID-19) mRNA BNT-162b2 [...] 06/20/12 Recorde d 1Result Comment: influenza at [facility] 2Location History: [facility] 3Location History: [facility] 4Result Comment: [06/19/2016] R[place] 5Result Comment: [06/19/2016] riverbend 6Early/Late Reason: Other : 7Result Comment: [06/19/2016] [place] 8Result Comment: [06/19/2016] riverbend 9Result Comment: [06/19/2016] riverbend 10Result Comment: [06/19/2016] [place] Medications albuterol 0.083% inhalation solution 3 mL, Inhalation, Every 6 hours, USE ACAPELLA DEVICE AFTER EVERY TREATMENT., # 360 mL, 5 Refills, [facility] #[id number], 151, cm, 09/29/21 13:12:00 EDT, Height, 61.69, [...] 10/17/21 15:25:00 EDT, Route to Pharmacy Electronically, [id number], [facility] #[id number], 151, cm, 09/29/21 13:12:00 EDT, Hei... Start Date: 10/17/21 Status: Ordered Sodium Chloride, Inhalation 0.9% inhalation solution See Instructions, USE 4 ML VIA NEBULIZER TWICE DAILY USE WITH 0.5% VIA INHALER SOLUTION TOGETHER INVIA NEBULIZER, # 300 mL, 0 Refills, Maintenance, 04/28/22 9:38:00 EST, [facility] #[id number],25, USE 4 ML VIA NEBULIZER TWICE DAILY [...] chart review meeting GFR criteria 6Admission to [facility] for [place] 11/2020. Cardiac MRI: LVEF 44%; 12/16/20 echo at [facility]: LVEF=40-45% 8Per CT w/contrast 12/19/2021: Irregular partially calcified tissue along the distal left main pulmonary artery extending along the regular small caliber left lower lobe pulmonary artery branch probably reflecting chronic thrombus.. 74803-Tkvwauozp as lung mass. S/P R-CHOP x 6 [...] Care Physician Member Role: PCP Address: Address: [address] [place] [address]- Care Team Related Persons Name: RAMIRO MARR Address: home [address] [place] [address]
--- OUTSIDE RECORDS SUMMARY | 2023-08-31 08:18 | XMS_ITS | Continuity of Care Document ---
Author Organization [facility] Address [address] [address]- Care Team Providers Care Metal Hardener Name Role Phone Tray BROWN, Robert Anthony Primary Care Physician [phone] [place] [facility] [place](s): 10/18/19 - 10/25/19 [facility] [address] [address]- [facility] Attending Physician: Mor Diaz MD Admitting Physician: [...] 5Early/Late Reason: Other : 6Result Comment: [06/19/2016] BRIIND 7Result Comment: [06/19/2016] abby 8Result Comment: [06/19/2016] [...] 1 Refills, Maintenance, 06/01/19 12:03:00 EST, Tablet, [facility] #[id number], 151, cm, 05/23/19 11:27:00 EST, Height, 65.4, [...] 10/03/18 15:01:00 EDT, Route to Pharmacy Electronically, [id number], [facility], J47.9 Start Date: 10/03/18 Status: Ordered ProAir HFA 90 mcg/inh inhalation aerosol with adapter 2, puffs, Inhalation, 4 times a day, PRN, # 1 each, Refills 6, Tot. Refills 6, Maintenance, 05/17/19 14:49:00 EST, Route to Pharmacy Electronically, [id number], [id number], 151, cm, 05/17/19 14:23:00 EST, Hei... Start [...] oldest [Reference Range]: 1 Height 151 cm (10/18/19 9:05 AM) Weight 65.0 kg (10/18/19 9:05 AM) Oxygen Saturation [94-100 %] 99 % (10/18/19 9:05 AM) Pulse Rate [55-90 bpm] 63 bpm (10/18/19 9:05 AM) Body Mass Index [18.5-24.99] 28.51 *H* (10/18/19 9:05 AM) Blood Pressure [90-138/55-84 mm Hg] 98/6 2mm Hg (10/18/19 9:05 AM) Blood pressure sites Arm, left (10/18/19 9:05 AM) Weight Obtained Via Standing scale (10/18/19 9:05 AM) Social History Social History Type Response Smoking Status Former smoker entered on: 09/06/14 Sex
--- OUTSIDE RECORDS SUMMARY | 2023-08-31 08:18 | XMS_ITS | Continuity of Care Document ---
Author Organization [facility] Address [address] [place] [address]- Care Team Providers Care De Alcoholizer Name Role Phone Tray BROWN, Robert Anthony Primary Care Physician Encounter [facility] Date(s): 10/06/22 - 11/05/22 [facility] [address] [place] [address]- Attending Physician: Adithya Sheth Admitting Physician: Adithya Sheth Referring Physician: AdmtrAdithya Allergies, Adverse Reactions, Alerts Substance Reaction Severity Status codeine Active Fish Active tetanus toxoid Active sulfa drugs Active Immunizations Given and Recorded Vaccine Date Status Refusal Reason [id number] 12y+ bivalent booster vax 08/15/22 Recorded Influenza Virus Vaccine (oldterm) 1 02/03/22 Recor ded SARS-CoV-2 mRNA (uvtoelq-coto-whnfd) vax 08/06/21 Recorded SARS-CoV-2 (COVID-19) mRNA BNT-162b2 [...] d 1Result Comment: influenza at [facility] 2Location History: [facility] 3Location History: [facility] 4Result Comment: [06/19/2016] [place] 5Result Comment: [06/19/2016] riverbend 6Early/Late Reason: Other : 7Result Comment: [06/19/2016] [place] 8Result Comment: [06/19/2016] riverbend 9Result Comment: [06/19/2016] riverbend 10Result Comment: [06/19/2016] [place] Medications albuterol 0.083% inhalation solution 3 mL, Inhalation, Every 6 hours, USE ACAPELLA DEVICE AFTER EVERY TREATMENT., # 360 mL, 5 Refills, [facility] #[id number], 151, cm, 09/29/21 13:12:00 EDT, Height, 61.69, kg, 09/29/21 13:11:00 EDT, Dry Weight Start Date: 11/13/21 Status: Ordered bisoprolol 5 mg oral tablet See Instructions, TAKE 1/2 TABLET DAILY, # 45 tablet, 1 Refills, Maintenance, 09/04/22 16:11:00 EDT, [facility], 150, cm, 08/28/22 9:37:00 EDT, Height, 61, kg, 04/17/22 11:31:00 EST, Dry Weight Start Date: 09/04/22 Status: Ordered clopidogrel 75 mg oral tablet 1, tablet, By Mouth, Daily, # 90 Unknown, Refills 0, Tot. Refills 0, Maintenance, 10/19/22 15:23:00EDT, Route to Pharmacy Electronically, [facility], 150, cm, 08/28/22 9:37:00 EDT, [...] Unknown, Refills 3, Route to Pharmacy Electronically, [facility], 151, cm, 09/29/21 13:12:00 EDT, Height, 61.69, kg, 09/29/21 13:11:00 EDT, Dry Weight Start Date: 11/05/21 Status: Ordered losartan 25 mg oral tablet See Instructions, TAKE 1/2 TABLET DAILY, # 45 tablet, 1 Refills, Maintenance, 09/04/22 16:13:00 EDT, [facility], 150, cm, 08/28/22 9:37:00 EDT, [...] 10/17/21 15:25:00 EDT, Route to Pharmacy Electronically, [id number], [facility] #[id number], 151, cm, 09/29/21 13:12:00 EDT, Hei... Start Date: 10/17/21 Status: Ordered Sodium Chloride, Inhalation 0.9% inhalation solution See Instructions, USE 4 ML VIA NEBULIZER TWICE DAILY USE WITH 0.5% VIA INHALER SOLUTION TOGETHER INVIA NEBULIZER, # 300 mL, 0 Refills, Maintenance, 04/28/22 9:38:00 EST, [facility] #[id number],25, USE 4 ML VIA NEBULIZER TWICE DAILY USE WITH 0.5... Start Date: 04/28/22 Status: Ordered Trelegy Ellipta 200 mcg-62.5 mcg-25 mcg/inh inhalation powder 1 puffs, Inhalation, Daily, at the same time every day, j44.9, # 1 each, 6 Refills, Maintenance, 10/14/22 11:12:00 EDT, Powder, [facility] #[id number], Partial fill upon patient request if the [...] chart review meeting GFR criteria 6Admission to [facility] for CHF 11/2020. Cardiac MRI: LVEF 44%; 12/16/20 echo at [facility]: LVEF=40-45% 8Per CT w/contrast 12/19/2021: Irregular partially calcified tissue along the distal left main pulmonary artery extending along the regular small caliber left lower lobe pulmonary artery branch probably reflecting chronic thrombus.. [address]-Maksjolyz as lung mass. S/P R-CHOP x 6 cycles. Social History Social History Type Response Smoking Status Former smoker entered on: 09/06/14 Sex Patient Care team information Care Team Personnel Name: Francoise Black RN Position: [facility] RN Member Role: Primary Care Nurse Name: Chiqui Stoll RN Position: S RN Member Role: Primary Care Nurse Name: Robert Feliz MD Position: S Physician - Primary Care Member Role: PCP Address: Address: [address] [place] [address]- Care Team Related Persons Name: RAMIRO MARR Address: home [address] [place] [address]
--- OUTSIDE RECORDS SUMMARY | 2023-08-31 08:18 | XMS_ITS | Continuity of Care Document ---
Author Organization [facility] Address [address] [place] [address]- Care Team Providers Care Pediatric Neuropsychologist Name Role Phone Tray BROWN, Robert Anthony Primary Care Physician [phone] [place] [facility] [place]11[place]20 - 08/10/20 [facility] [address] [address]- [place] Allergies, Adverse Reactions, Alerts Substance Reaction [...] vaccine 9 06/20/12 Recorded 1Location History: [facility] [place] 2Location History: [facility] 3Result Comment: [06/19/2016] JANET 4Result Comment: [06/19/2016] riverbend 5Early/Late Reason: Other : 6Result Comment: [06/19/2016] RIVERBEND 7Result Comment: [06/19/2016] gaylebend 8Result Comment: [06/19/2016] gaylebend 9Result Comment: [06/19/2016] [place] Medications albuterol 0.083% inhalation solution 3 mL = 2.5 mg, Inhalation, Every 6 hours, use Acapella device after every treatment, # 120 each, 3 Refills, Maintenance, 06/27/20 15:48:00 EST, Solution, [facility] #[id number], 151, cm, 02/05/20 7:35:00 EDT, Height Start Date: 06/27/20 Status: Ordered albuterol 5 mg/mL (0.5%) inhalation solution 0.5 mL = 2.5 mg, Inhalation, 2 times a day, PRN for wheezing, dilute in 4 mL of Hyper-Don and take twice a day, # 120 each, 5 Refills, Maintenance, 08/07/20 9:57:00 EDT, Solution, [facility] #55886, J47.0 bronchiectasis, 151, cm, 02/05/20 7:... Start Date: 08/07/20 Stop Date: 02/03/21 Status: Ordered amoxicillin 500 mg oral capsule 4 capsule = 2,000 mg, By Mouth, Once, take 4 capsules prior to dental procedure, # 4 capsule, 0 Refills, Soft Stop, 12/27/19 12:56:00 EDT, [facility] #[id number], 151, cm, 11/22/19 11:48:00 EDT,Height, 65.4, kg, 05/02/18 11:04:00 EST, Dry Weight Start Date: 12/27/19 Status: Ordered aspirin 81 mg oral tablet, chewable 81 mg, 1, tablet, By Mouth, Daily, # 90 tablet, Refills 3, Tot. Refills 3, Maintenance, 02/05/20 7:58:00 EDT, Route to Pharmacy Electronically, [facility] #[id number], 151, cm, 02/05/20 7:35:00 EDT, Height, 65.4, kg, 05/02/18 11:04:00 EST, Dry We... Start Date: 02/05/20 Status: Ordered Hyper-Don 7% inhalation solution 4 mL = 0.28 Gm, Neb, 2 times a day, take with 0.5ml = 2.5 mg albuterol (add hypersal 4ml to 0.5ml albuterol) twice a day, # 240 mL, 11 Refills, Maintenance, 08/07/20 9:58:00 EDT, [facility]#34909, J47.0 bronchiectasis, 4 mL Neb 2 times a da... Start Date: 08/07/20 Stop Date: 08/02/21 Status: Ordered meloxicam 7.5 mg oral tablet 1 tablet, By Mouth, Daily, # 90 tablet, 0 Refills, Maintenance, 07/01/20 12:15:00 EST, [facility] #[id number], 151, cm, 02/05/20 7:35:00 EDT, Height Start [...] 05/17/19 14:49:00 EST, Route to Pharmacy Electronically, [id number], [facility] #[id number], 151, cm, 05/17/19 14:23:00 EST, Hei... Start [...] 05/07/20 13:57:00 EST, Route to Pharmacy Electronically, [facility] #[id number], 151, cm, 02/05/20 7:35:00 EDT, Height Start [...]
--- OUTSIDE RECORDS SUMMARY | 2023-08-31 08:18 | XMS_ITS | Continuity of Care Document ---
Author Organization [facility] Address [address] [place] [address]- Care Team Providers Care Literacy Coordinator Name Role Phone Tray BROWN, Robert Anthony Primary Care Physician Encounter [facility] Date(s): 12/05/20 - 01/04/21 [facility] [address] [place] [address]- [place] Allergies, Adverse Reactions, Alerts Substance Reaction [...] 3 Refills, Maintenance, 06/27/20 15:48:00 EST, Solution, [facility] #[id number], 151, cm, 02/05/20 7:35:00 EDT, Height Start Date: 06/27/20 Status: Ordered amoxicillin 500 mg oral capsule 4 capsule = 2,000 mg, By Mouth, Once, take 4 capsules prior to dental procedure, # 4 capsule, 0 Refills, Soft Stop, 08/15/20 16:35:00 EDT, [facility] #89854, 151, cm, 02/05/20 7:35:00 EDT, Height Start Date: 08/15/20 Status: Ordered aspirin 81 mg oral tablet, chewable 81 mg, 1, tablet, By Mouth, Daily, # 90 tablet, Refills 3, Tot. Refills 3, Maintenance, 02/05/20 7:58:00 EDT, Route to Pharmacy Electronically, [facility] #81677, 151, cm, 02/05/20 7:35:00 EDT, Height, 65.4, kg, 05/02/18 11:04:00 EST, Dry We... Start Date: 02/05/20 Status: Ordered Hyper-Don 7% inhalation solution 4 mL = 0.28 Gm, Neb, 2 times a day, take with 0.5ml = 2.5 mg albuterol (add hypersal 4ml to 0.5ml albuterol) twice a day, # 240 mL, 11 Refills, Maintenance, 08/07/20 9:58:00 EDT, [facility]#51719, J47.0 bronchiectasis, 4 mL Neb 2 times a da... Start Date: 08/07/20 Stop Date: 08/02/21 Status: Ordered Lasix 40 mg oral tablet 40 mg, 1, tablet, By Mouth, Daily, prescribed by [facility] doctor 12/18/20, # 30 tablet, Refills 0, Maintenance, 12/19/20 13:31:00 EDT, Partial fill upon patient request if the prescription is for a schedule II opioid drug. Start Date: 12/19/20 Status: Ordered meloxicam 7.5 mg oral tablet 1 tablet, By Mouth, Daily, # 90 tablet, 0 Refills, [facility] #[id number], 151, cm, 12/27/20 8:19:00 EDT, Height Start [...] 1, tablet, By Mouth, Daily, Prescribed by [facility] doctory 12/18/20 stop asa [...] 08/26/20 14:10:00 EDT, Route to Pharmacy Electronically, [id number], [facility] #[id number], 151, cm, 08/26/20 13:26:00 EDT, Height Start [...] 12/06/20 9:31:00 EDT, Powder, [facility] #[id number], Partial fill upon patient request if the [...]
--- OUTSIDE RECORDS SUMMARY | 2023-08-31 08:18 | XMS_ITS | Continuity of Care Document ---
Author Organization [facility] Address [address] [place] [address]- Care Team Providers Care Regulatory Affairs Assistant Name Role Phone Tray BROWN, Robert Anthony Primary Care Physician [place] [facility] [place]/23[place]22 - 05/23/22 [facility] [address] [place] [address]- Allergies, Adverse Reactions, Alerts Substance Reaction Severity Status codeine Active Fish Active tetanus toxoid Active sulfa drugs Active Immunizations Given and Recorded Vaccine Date Status Refusal Reason Influenza Virus Vaccine (oldterm) 1 02/03/22 Recor ded SARS-CoV-2 mRNA (rpbyoss-cgyh-ewzwh) vax 08/06/21 Recorded SARS-CoV-2 (COVID-19) mRNA BNT-162b2 [...] 06/20/12 Recorde d 1Result Comment: influenza at [facility] [...] EVERY TREATMENT., # 360 mL, 5 Refills, [facility] #[id number], 151, cm, 09/29/21 13:12:00 EDT, Height, 61.69, [...] 10/17/21 15:25:00 EDT, Route to Pharmacy Electronically, [id number], [facility] #[id number], 151, cm, 09/29/21 13:12:00 EDT, Hei... Start Date: 10/17/21 Status: Ordered Sodium Chloride, Inhalation 0.9% inhalation solution See Instructions, USE 4 ML VIA NEBULIZER TWICE DAILY USE WITH 0.5% VIA INHALER SOLUTION TOGETHER INVIA NEBULIZER, # 300 mL, 0 Refills, Maintenance, 04/28/22 9:38:00 EST, [facility] #02495,25, USE 4 ML VIA NEBULIZER TWICE DAILY [...] chart review meeting GFR criteria 5Admission to [facility] for [place] 11/2020. Cardiac MRI: LVEF 44%; 12/16/20 echo at [facility]: LVEF=40-45% [id number]-Vrdikqxht as lung mass. S/P R-CHOP x 6 cycles. Social History Social History Type Response Smoking Status Former smoker entered on: 09/06/14 Sex Patient Care team information Care Team Personnel Name: Francoise Black RN Position: [facility] RN Member Role: Primary Care Nurse Name: Chiqui Stoll RN Position: [facility] RN Member Role: Primary Care Nurse Name: Robert Feliz MD Position: [facility] Primary Care Physician Member Role: PCP Address: Address: [address] [place] [address]- Care Team Related Persons Name: PARENTRAMIRO Address: home [address] [place] [address]
--- OUTSIDE RECORDS SUMMARY | 2023-08-31 08:18 | XMS_ITS | Continuity of Care Document ---
Author Organization [facility] Address [address] [place] [address]- Care Team Providers Care Passenger Relations Representative Name Role Phone Robert Feliz MD Primary Care Physician [place] [facility] [place] [facility] [id number] Date(s): 07/08/22 - 11/05/22 [facility] [address] [place] [address]- Attending Physician: Emilie Reynolds NP Admitting Physician: Emilie Reynolds NP Referring Physician: Robert Feliz MD Allergies, Adverse Reactions, Alerts Substance Reaction Severity Status codeine Active tetanus toxoid Active sulfa drugs Active Fish Active Immunizations Given and Recorded Vaccine Date Status Refusal Reason [id number] 12y+ bivalent booster vax 08/15/22 Recorded Influenza Virus Vaccine (oldterm) 1 02/03/22 Recor ded SARS-CoV-2 mRNA (awsktjo-owba-wccei) vax 08/06/21 Recorded SARS-CoV-2 (COVID-19) mRNA BNT-162b2 [...] EVERY TREATMENT., # 360 mL, 5 Refills, [facility] #[id number], 151, cm, 09/29/21 13:12:00 EDT, Height, 61.69, kg, 09/29/21 13:11:00 EDT, Dry Weight Start Date: 11/13/21 Status: Ordered bisoprolol 5 mg oral tablet See Instructions, TAKE 1/2 TABLET DAILY, # 45 tablet, 1 Refills, Maintenance, 09/04/22 16:11:00 EDT, [facility], 150, cm, 08/28/22 9:37:00 EDT, Height, 61, kg, 04/17/22 11:31:00 EST, Dry Weight Start Date: 09/04/22 Status: Ordered clopidogrel 75 mg oral tablet 1, tablet, By Mouth, Daily, # 90 Unknown, Refills 0, Tot. Refills 0, Maintenance, 10/19/22 15:23:00EDT, Route to Pharmacy Electronically, [facility], 150, cm, 08/28/22 9:37:00 [...] Unknown, Refills 3, Route to Pharmacy Electronically, [facility], 151, cm, 09/29/21 13:12:00 EDT, Height, 61.69, kg, 09/29/21 13:11:00 EDT, Dry Weight Start Date: 11/05/21 Status: Ordered losartan 25 mg oral tablet See Instructions, TAKE 1/2 TABLET DAILY, # 45 tablet, 1 Refills, Maintenance, 09/04/22 16:13:00 EDT, [email or web address], 150, cm, 08/28/22 9:37:00 EDT, [...] 10/17/21 15:25:00 EDT, Route to Pharmacy Electronically, [id number], [facility] #[id number], 151, cm, 09/29/21 13:12:00 EDT, Hei... Start Date: 10/17/21 Status: Ordered Sodium Chloride, Inhalation 0.9% inhalation solution See Instructions, USE 4 ML VIA NEBULIZER TWICE DAILY USE WITH 0.5% VIA INHALER SOLUTION TOGETHER INVIA NEBULIZER, # 300 mL, 0 Refills, Maintenance, 04/28/22 9:38:00 EST, [facility] #[id number], USE 4 ML VIA NEBULIZER TWICE DAILY USE WITH 0.5... Start Date: 04/28/22 Status: Ordered Trelegy Ellipta 200 mcg-62.5 mcg-25 mcg/inh inhalation powder 1 puffs, Inhalation, Daily, at the same time every day, j44.9, # 1 each, 6 Refills, Maintenance, 10/14/22 11:12:00 EDT, Powder, [facility] #[id number], Partial fill upon patient request if the [...] pulmonary artery branch probably reflecting chronic thrombus.. [id number] as lung mass. S/P R-CHOP x 6 [...] Care Member Role: PCP Address: Address: [address] [place] [address]- Care Team Related Persons Name: RAMIRO MARR Address: home [address] [place] [address]
--- OUTSIDE RECORDS SUMMARY | 2023-08-31 08:18 | XMS_ITS | Continuity of Care Document ---
Author Organization [facility] Address [address] [place] [address]- Care Team Providers Care Scanner Supervisor Name Role Phone Tray BROWN, Robert Anthony Primary Care Physician [phone] [place] [facility] [place] 12/16/20 - 01/15/21 [facility] [address] [facility] [address] [place] [address]- Referring Physician: Susannah Walker MD Allergies, Adverse Reactions, Alerts Substance Reaction [...] vaccine 9 06/20/12 Recorded 1Location History: [facility] 2Location History: [facility] 3Result Comment: [06/19/2016] JANET 4Result Comment: [06/19/2016] [facility] 5Early/Late Reason: Other : 6Result Comment: [06/19/2016] [facility] 7Result Comment: [06/19/2016] [facility] 8Result Comment: [06/19/2016] [facility] 9Result Comment: [06/19/2016] [facility] Medications albuterol 0.083% inhalation solution 3 mL = 2.5 mg, Inhalation, Every 6 hours, use Acapella device after every treatment, # 120 each, 3 Refills, Maintenance, 06/27/20 15:48:00 EST, Solution, [facility] #[id number], 151, cm, 02/05/20 7:35:00 EDT, Height Start Date: 06/27/20 Status: Ordered amoxicillin 500 mg oral capsule 4 capsule = 2,000 mg, By Mouth, Once, take 4 capsules prior to dental procedure, # 4 capsule, 0 Refills, Soft Stop, 08/15/20 16:35:00 EDT, [facility] #[id number], 151, cm, 02/05/20 7:35:00 EDT, Height Start Date: 08/15/20 Status: Ordered Hyper-Don 7% inhalation solution 4 mL = 0.28 Gm, Neb, 2 times a day, take with 0.5ml = 2.5 mg albuterol (add hypersal 4ml to 0.5ml albuterol) twice a day, # 240 mL, 11 Refills, Maintenance, 08/07/20 9:58:00 EDT, [facility]#[id number], J47.0 bronchiectasis, 4 mL Neb 2 times a da... Start Date: 08/07/20 Stop Date: 08/02/21 Status: Ordered Lasix 40 mg oral tablet 40 mg, 1, tablet, By Mouth, Daily, prescribed by [facility] [place] [facility] doctor 12/18/20, # 30 tablet, Refills 2, Tot. Refills 2, Maintenance, 01/10/21 13:42:00 EDT, Route to Pharmacy Electronically, [facility] #[id number], Partial fill upon patient request if th... Start Date: 01/10/21 Status: Ordered meloxicam 7.5 mg oral tablet 1 tablet, By Mouth, Daily, # 90 tablet, 0 Refills, [facility] #[id number], 151, cm, 12/27/20 8:19:00 EDT, Height Start [...] 01/10/21 13:45:00 EDT, Route to Pharmacy Electronically, [facility] #[id number], Partial fill upon patientrequest if the prescription is for a schedule II op... Start Date: 01/10/21 Status: Ordered ProAir HFA 90 mcg/inh inhalation aerosol with adapter 2, puffs, Inhalation, 4 times a day, PRN, # 1 each, Refills 6, Tot. Refills 6, Maintenance, 08/26/20 14:10:00 EDT, Route to Pharmacy Electronically, [id number], [facility] #[id number], 151, cm, 08/26/20 13:26:00 EDT, Height Start Date: 08/26/20 Status: Ordered Trelegy Ellipta 200 mcg-62.5 mcg-25 mcg/inh inhalation powder 1 puffs, Inhalation, Daily, at the same time every day, # 1 each, 6 Refills, Maintenance, 12/06/20 9:31:00 EDT, Powder, [facility] #[id number], Partial fill upon patient request if the [...]
--- OUTSIDE RECORDS SUMMARY | 2023-08-31 08:18 | XMS_ITS | Continuity of Care Document ---
Author Organization [facility] Address [address] [place] [address]- Care Team Providers Care Cath Lab Tech Name Role Phone Tray BROWN, Robert Anthony Primary Care Physician [place] [facility] [place]11[place]21 [facility] [address] [facility] [address] [place] [address]- Allergies, Adverse Reactions, Alerts Substance Reaction Severity [...] Recorded 1Location History: [facility] 2Location History: [facility] 3Result Comment: [06/19/2016] ABBY 4Result Comment: [06/19/2016] abby 5Early/Late Reason: Other : 6Result Comment: [06/19/2016] [facility] 7Result Comment: [06/19/2016] [facility] 8Result Comment: [06/19/2016] [facility] 9Result Comment: [06/19/2016] [facility] Medications albuterol 0.083% inhalation solution 3 mL = 2.5 mg, Inhalation, Every 6 hours, use Acapella device after every treatment, # 120 each, 3 Refills, Maintenance, 06/27/20 15:48:00 EST, Solution, [facility] #[id number], 151, cm, 02/05/20 7:35:00 EDT, Height Start Date: 06/27/20 Status: Ordered amoxicillin 500 mg oral capsule 4 capsule = 2,000 mg, By Mouth, Once, take 4 capsules prior to dental procedure, # 4 capsule, 0 Refills, Soft Stop, 08/15/20 16:35:00 EDT, [facility] #[id number], 151, cm, 02/05/20 7:35:00 EDT, Height Start Date: 08/15/20 Status: Ordered Hyper-Don 7% inhalation solution 4 mL = 0.28 Gm, Neb, 2 times a day, take with 0.5ml = 2.5 mg albuterol (add hypersal 4ml to 0.5ml albuterol) twice a day, # 240 mL, 11 Refills, Maintenance, 08/07/20 9:58:00 EDT, [facility]#[id number], J47.0 bronchiectasis, 4 mL Neb 2 times a da... Start Date: 08/07/20 Stop Date: 08/02/21 Status: Ordered Lasix 40 mg oral tablet 40 mg, 1, tablet, By Mouth, Daily, prescribed by [facility] doctor 12/18/20, # 30 tablet, Refills 2, Tot. Refills 2, Maintenance, 01/10/21 13:42:00 EDT, Route to Pharmacy Electronically, [facility] #[id number], Partial fill upon patient request if th... Start Date: 01/10/21 Status: Ordered meloxicam 7.5 mg oral tablet 1 tablet, By Mouth, Daily, # 90 tablet, 0 Refills, [facility] #[id number], 151, cm, 12/27/20 8:19:00 EDT, Height Start [...] 01/10/21 13:45:00 EDT, Route to Pharmacy Electronically, [facility] #[id number], Partial fill upon patientrequest if the prescription is for a schedule II op... Start Date: 01/10/21 Status: Ordered ProAir HFA 90 mcg/inh inhalation aerosol with adapter 2, puffs, Inhalation, 4 times a day, PRN, # 1 each, Refills 6, Tot. Refills 6, Maintenance, 08/26/20 14:10:00 EDT, Route to Pharmacy Electronically, [id number], [facility] #[id number], 151, cm, 08/26/20 13:26:00 EDT, Height Start Date: 08/26/20 Status: Ordered Trelegy Ellipta 200 mcg-62.5 mcg-25 mcg/inh inhalation powder 1 puffs, Inhalation, Daily, at the same time every day, # 1 each, 6 Refills, Maintenance, 12/06/20 9:31:00 EDT, Powder, [facility] #[id number], Partial fill upon patient request if the [...]
--- OUTSIDE RECORDS SUMMARY | 2023-08-31 08:18 | XMS_ITS | Continuity of Care Document ---
Author Organization [facility] Address [address] [place] [address]- Care Team Providers Care Facilities Coordinator Name Role Phone Tray BROWN, Robert Anthony Primary Care Physician [place] [facility] [place]): 11/14/21 - 12/14/21 [facility] [address] [place] [address]- Attending Physician: Admtr, Ar8 Admitting Physician: Admtr, Ar8 Referring Physician: Admtr, Ar8 Allergies, Adverse Reactions, Alerts Substance Reaction Severity Status codeine Active tetanus toxoid Active sulfa drugs Active Immunizations Given and Recorded Vaccine Date Status Refusal Reason SARS-CoV-2 mRNA (ywqljvp-rtot-ugwnn) vax 08/06/21 Recorded SARS-CoV-2 (COVID-19) mRNA BNT-162b2 [...] EVERY TREATMENT., # 360 mL, 5 Refills, [facility] #[id number], 151, cm, 09/29/21 13:12:00 EDT, Height, 61.69, kg, 09/29/21 13:11:00 EDT, Dry Weight Start Date: 11/13/21 Status: Ordered albuterol 0.083% inhalation solution 3 mL, Inhalation, Every 6 hours, USE ACAPELLA DEVICE AFTER EVERY TREATMENT., # 360 mL, 0 Refills, [facility] #[id number], 151, cm, 06/11/21 13:48:00 EST, Height Start Date: 08/18/21 Status: Ordered albuterol 5 mg/mL (0.5%) inhalation solution 0.5 mL = 2.5 mg, Inhalation, Every 6 hours, PRN for wheezing, # 20 mL, 11 Refills, Maintenance, 08/26/21 14:10:00 EDT, Solution, [facility] #[id number], Partial fill upon patient request if the prescription is for a schedule II opioid drug., 151,... Start Date: 08/26/21 Status: Ordered amoxicillin 500 mg oral capsule 4 capsule = 2,000 mg, By Mouth, Once, take 4 capsules prior to dental procedure, # 4 capsule, 5 Refills, Soft Stop, 05/06/21 17:27:00 EST, [facility] #[id number], 151, cm, 05/05/21 12:08:00 EST,Height Start Date: [...] Unknown, Refills 3, Route to Pharmacy Electronically, [facility], 151, cm, 09/29/21 13:12:00 EDT, Height, 61.69, kg, 09/29/21 13:11:00 EDT, Dry Weight Start Date: 11/05/21 Status: Ordered Hyper-Don 7% inhalation solution 4 mL = 0.28 Gm, Neb, 2 times a day, take with 0.5ml = 2.5 mg albuterol (add hypersal 4ml to 0.5ml albuterol) twice a day J47.0, # 720 mL, 1 Refills, Maintenance, 07/28/22 9:58:00 EDT, [facility] #[id number], J47.0 bronchiectasis, 4 mL Neb 2 times... Start Date: 07/28/22 Status: Ordered Hyper-Don 7% inhalation solution 4 mL = 0.28 Gm, Neb, 2 times a day, take with 0.5ml = 2.5 mg albuterol (add hypersal 4ml to 0.5ml albuterol) twice a day, # 720 mL, 1 Refills, Hard Stop 07/28/22 9:58:00 EDT, 08/02/21 9:58:00 EDT, [facility], J47.0 bronchiectasis, 151, cm,... Start [...] Unknown, Refills 3, Route to Pharmacy Electronically, [facility], 151, cm, 09/29/21 13:12:00 EDT, Height, 61.69, kg, 09/29/21 13:11:00 EDT, Dry Weight Start Date: 11/05/21 Status: Ordered losartan 25 mg oral tablet 12.5 mg, 0.5, tablet, By Mouth, Daily, Take 0.5 tablet (12.5mg) daily, # 45 tablet, Refills 3, Tot.Refills 3, Maintenance, 06/12/21 13:52:00 EST, Route to Pharmacy Electronically, [facility], 151, cm, 06/11/21 13:48:00 EST, Height Start [...] 10/17/21 15:25:00 EDT, Route to Pharmacy Electronically, [id number], [facility] #[id number], 151, cm, 09/29/21 13:12:00 EDT, Hei... Start Date: 10/17/21 Status: Ordered Sodium Chloride, Inhalation 0.9% inhalation solution 4 mL = 0.036 Gm, Neb, 2 times a day, use with 0.5% albuterol solution together in nebulizer, # 240 mL, 6 Refills, Maintenance, 06/12/21 19:39:00 EST, [facility] #[id number], Partial fill upon patient request if the [...] 1-49% stenosis; LICA 1-49% stenosis 4Admission to [facility] [place] 11/2020. Cardiac MRI: LVEF 44%; 12/16/20 echo at [facility] [place]: LVEF=40-45% [id number]-[id number] as lung mass. S/P R-CHOP x 6 cycles. Social History Social History Type Response Smoking Status Former smoker entered on: 09/06/14 Sex
--- OUTSIDE RECORDS SUMMARY | 2023-08-31 08:19 | XMS_ITS | Continuity of Care Document ---
Author Organization [facility] Address [address] [place] [address]- Care Team Providers Care Newspaper Library Manager Name Role Phone Tray BROWN, Robert Anthony Primary Care Physician [phone] [place] [facility] [place](s): 05/06/21 - 06/05/21 [facility] [address] [place] [address]- Allergies, Adverse Reactions, Alerts Substance Reaction Severity [...] vaccine 9 06/20/12 Recorded 1Location History: [facility] 2Location History: [facility] 3Result Comment: [06/19/2016] [facility] 4Result Comment: [06/19/2016] [facility] 5Early/Late Reason: Other : 6Result Comment: [06/19/2016] [facility] 7Result Comment: [06/19/2016] [facility] 8Result Comment: [06/19/2016] [facility] 9Result Comment: [06/19/2016] [facility] Medications albuterol 0.083% inhalation solution 3 mL = 2.5 mg, Inhalation, Every 6 hours, use Acapella device after every treatment, # 120 each, 3 Refills, Maintenance, 06/27/20 15:48:00 EST, Solution, [facility] #[id number], 151, cm, 02/05/20 7:35:00 EDT, Height Start [...] 5 Refills, Soft Stop, 05/06/21 17:27:00 EST, [facility] #[id number], 151, cm, 05/05/21 12:08:00 EST,Height Start Date: [...] Stop 08/02/21 9:58:00 EDT, 08/07/20 9:58:00 EDT, [facility] #[id number], J47.0 [facility]... Start Date: 08/07/20 Stop Date: 08/02/21 Status: Ordered Hyper-Don 7% inhalation solution 4 mL = 0.28 Gm, Neb, 2 times a day, take with 0.5ml = 2.5 mg albuterol (add hypersal 4ml to 0.5ml albuterol) twice a day, # 720 mL, 1 Refills, Maintenance, 08/02/21 9:58:00 EDT, [facility], J47.0 bronchiectasis, 4 mL Neb [...] tablet, By Mouth, Daily, [place] [facility] [place] 12/18/20, # 90 tablet, Refills [...] 02/05/21 8:59:00 EDT, Route to Pharmacy Electronically, [facility] #[id number], Partial fill upon patient request if the... Start Date: 02/05/21 Status: Ordered meloxicam 7.5 mg oral tablet 1 tablet, By Mouth, Daily, # 90 tablet, 0 Refills, [facility] #[id number], 151, cm, 12/27/20 8:19:00 EDT, Height Start [...] 01/10/21 13:45:00 EDT, Route to Pharmacy Electronically, [facility] #[id number], Partial fill upon patientrequest if the prescription is for a schedule II op... Start Date: 01/10/21 Status: Ordered ProAir HFA 90 mcg/inh inhalation aerosol with adapter 2, puffs, Inhalation, 4 times a day, PRN, # 1 each, Refills 6, Tot. Refills 6, Maintenance, 08/26/20 14:10:00 EDT, Route to Pharmacy Electronically, [id number], [facility] #[id number], 151, cm, 08/26/20 13:26:00 EDT, Height Start Date: 08/26/20 Status: Ordered rosuvastatin 5 mg oral tablet 1 tablet = 5 mg, By Mouth, Daily, # 30 tablet, 5 Refills, Maintenance, 04/08/21 9:24:00 EST, Tablet, [facility] #[id number], 151, cm, 03/07/21 9:27:00 EST, Height Start [...] Stop07/04/21 9:31:00 EST, 12/06/20 9:31:00 EDT, Powder, [facility] #[id number], Partial fill upon patient request if the [...]
--- OUTSIDE RECORDS SUMMARY | 2023-08-31 08:19 | XMS_ITS | Continuity of Care Document ---
Author Organization [facility] Address [address] [place] [address]- Care Team Providers Care Scientific Helper Name Role Phone Robert Feliz MD Primary Care Physician [place] [facility] [place] 10/06/21 [facility] [address] [place] [address]- Attending Physician: Natan Holden MD Admitting Physician: Natan Holden MD Referring Physician: Robert Feliz MD Allergies, [...] EVERY TREATMENT., # 360 mL, 0 Refills, [facility] #[id number], 151, cm, 06/11/21 13:48:00 EST, Height Start Date: 08/18/21 Status: Ordered albuterol 5 mg/mL (0.5%) inhalation solution 0.5 mL = 2.5 mg, Inhalation, Every 6 hours, PRN for wheezing, # 20 mL, 11 Refills, Maintenance, 08/26/21 14:10:00 EDT, Solution, [facility] #[id number], Partial fill upon patient request if the prescription is for a schedule II opioid drug., 151,... Start Date: 08/26/21 Status: Ordered amoxicillin 500 mg oral capsule 4 capsule = 2,000 mg, By Mouth, Once, take 4 capsules prior to dental procedure, # 4 capsule, 5 Refills, Soft Stop, 05/06/21 17:27:00 EST, [facility] #[id number], 151, cm, 05/05/21 12:08:00 EST,Height Start Date: [...] Replace Required Details, Route to Pharmacy Electronically, [facility], 151, cm, 05/05/21 12:08:00 EST, Height Start Date: 05/23/21 Status: Ordered Hyper-Don 7% inhalation solution 4 mL = 0.28 Gm, Neb, 2 times a day, take with 0.5ml = 2.5 mg albuterol (add hypersal 4ml to 0.5ml albuterol) twice a day J47.0, # 720 mL, 1 Refills, Maintenance, 07/28/22 9:58:00 EDT, [facility] #[id number], J47.0 bronchiectasis, 4 mL Neb 2 times... Start Date: 07/28/22 Status: Ordered Hyper-Don 7% inhalation solution 4 mL = 0.28 Gm, Neb, 2 times a day, take with 0.5ml = 2.5 mg albuterol (add hypersal 4ml to 0.5ml albuterol) twice a day, # 720 mL, 1 Refills, Hard Stop 07/28/22 9:58:00 EDT, 08/02/21 9:58:00 EDT, [facility], J47.0 bronchiectasis, 151, cm,... Start Date: 08/02/21 Stop Date: 07/28/22 Status: Ordered Imodium Capsule 2 mg, By Mouth, Every 4 hours, Refills 0, Maintenance, 05/05/21 12:12:00 EST, Partial fill upon patient request if the prescription is for a schedule II opioid drug. Start Date: 05/05/21 Status: Ordered Lasix 40 mg oral tablet 40 mg, 1, tablet, By Mouth, Daily, prescribed by [facility] doctor 12/18/20, # 90 tablet, Refills [...] 01/10/21 13:45:00 EDT, Route to Pharmacy Electronically, [facility] #[id number], Partial fill upon patientrequest if the prescription is for a schedule II op... Start Date: 01/10/21 Status: Ordered Sodium Chloride, Inhalation 0.9% inhalation solution 4 mL = 0.036 Gm, Neb, 2 times a day, use with 0.5% albuterol solution together in nebulizer, # 240 mL, 6 Refills, Maintenance, 06/12/21 19:39:00 EST, [facility] #[id number], Partial fill upon patient request if the [...] [Reference Range]: 1 2 Height 151 cm (09/29/21 1:12 PM) 151 cm (09/29/21 1:07 PM) Weight 61.69 kg (09/29/21 1:07 PM) Oxygen Saturation [94-100 %] 98 % (09/29/21 1:07 PM) Pulse Rate [55-90 bpm] 65 bpm (09/29/21 1:07 PM) Body Mass Index [18.5-24.99] 27.06 *H* (09/29/21 1:07 PM) Blood Pressure [90-138/55-84 mm Hg] 110/ 70mm Hg (09/29/21 1:12 PM) 110/65mm Hg (09/29/21 1:07 PM) Mode of Delivery (Oxygen) Room air (09/29/21 1:07 PM) Blood pressure sites Arm, left (09/29/21 1:12 PM) Arm, right (09/29/21 1:07 PM) Dry Weight 61.69 kg (09/29/21 1:07 PM) Weight Obtained Via Patient/family state d (09/29/21 1:07 PM) Dry Weight Obtained Via Patient/family s tated (09/29/21 1:07 PM) Social History Social History Type Response Smoking Status Former smoker entered on: 09/06/14 Sex
--- OUTSIDE RECORDS SUMMARY | 2023-08-31 08:19 | XMS_ITS | Continuity of Care Document ---
Author Organization [facility] Zac lt Address [address] [place] [address]- Care Team Providers Care Solar Panel Installer Name Role Phone Robert Feliz MD Primary Care Physician [phone] Encounter [facility] Date(s): 08/28/22 - 09/04/22 [facility] Adult [address] [place] [address]- Attending Physician: Robert Feliz MD Allergies, Adverse Reactions, Alerts Substance Reaction Severity Status codeine Active tetanus toxoid Active sulfa drugs Active Fish Active Immunizations Given and Recorded Vaccine Date Status Refusal Reason [id number] 12y+ bivalent booster vax 08/15/22 Recorded Influenza Virus Vaccine (oldterm) 1 02/03/22 Recor ded SARS-CoV-2 mRNA (icqsrdy-akrl-bduwe) vax 08/06/21 Recorded SARS-CoV-2 (COVID-19) mRNA BNT-162b2 [...] Recorde d 1Result Comment: influenza at [facility] 2Location History: [facility] 3Location History: [facility] 4Result Comment: [06/19/2016] [facility] 5Result Comment: [06/19/2016] [facility] 6Early/Late Reason: Other : 7Result Comment: [06/19/2016] [place] 8Result Comment: [06/19/2016] [facility] 9Result Comment: [06/19/2016] [facility] 10Result Comment: [06/19/2016] [place] Medications albuterol 0.083% inhalation solution 3 mL, Inhalation, Every 6 hours, USE ACAPELLA DEVICE AFTER EVERY TREATMENT., # 360 mL, 5 Refills, [facility] #[id number], 151, cm, 09/29/21 13:12:00 EDT, Height, 61.69, kg, 09/29/21 13:11:00 EDT, Dry Weight Start Date: 11/13/21 Status: Ordered bisoprolol 5 mg oral tablet See Instructions, TAKE 1/2 TABLET DAILY, # 45 tablet, 1 Refills, Maintenance, 09/04/22 16:11:00 EDT, [facility], 150, cm, 08/28/22 9:37:00 EDT, Height, 61, kg, 04/17/22 11:31:00 EST, Dry Weight Start Date: 09/04/22 Status: Ordered clopidogrel 75 mg oral tablet 1, tablet, By Mouth, Daily, # 90 Unknown, Refills 0, Maintenance, 09/01/22 10:17:00 EDT, [facility]ically[facility], 150, cm, 08/28/22 9:37:00 EDT, Height, 61, [...] Unknown, Refills 3, Route to Pharmacy Electronically, [email or web address], 151, cm, 09/29/21 13:12:00 EDT, Height, 61.69, kg, 09/29/21 13:11:00 EDT, Dry Weight Start Date: 11/05/21 Status: Ordered losartan 25 mg oral tablet See Instructions, TAKE 1/2 TABLET DAILY, # 45 tablet, 1 Refills, Maintenance, 09/04/22 16:13:00 EDT, [facility], 150, cm, 08/28/22 9:37:00 EDT, [...] 10/17/21 15:25:00 EDT, Route to Pharmacy Electronically, [id number], [facility] #[id number], 151, cm, 09/29/21 13:12:00 EDT, Hei... Start Date: 10/17/21 Status: Ordered Sodium Chloride, Inhalation 0.9% inhalation solution See Instructions, USE 4 ML VIA NEBULIZER TWICE DAILY USE WITH 0.5% VIA INHALER SOLUTION TOGETHER INVIA NEBULIZER, # 300 mL, 0 Refills, Maintenance, 04/28/22 9:38:00 EST, [facility] #[id number],25, USE 4 ML VIA NEBULIZER TWICE DAILY [...] review meeting GFR criteria 6Admission to [facility] for CHF 11/2020. Cardiac MRI: LVEF 44%; 12/16/20 echo at [facility]: LVEF=40-45% 8Per CT w/contrast 12/19/2021: Irregular partially calcified tissue along the distal left main pulmonary artery extending along the regular small caliber left lower lobe pulmonary artery branch probably reflecting chronic thrombus.. [id number]-[id number] as lung mass. S/P R-CHOP x 6 cycles. Vital Signs Most recent to oldest [Reference Range]: 1 Height 150.0 cm (08/28/22 9:37 AM) Weight 60.9 kg (08/28/22 9:37 AM) Oxygen Saturation [94-100 %] 98 % (08/28/22 9:37 AM) Pulse Rate [55-90 bpm] 64 bpm (08/28/22 9:37 AM) Body Mass Index [18.5-24.99 kg/m2] 27.07 kg/m2 *H* (08/28/22 9:37 AM) Blood Pressure [90-138/55-84 mm Hg] 127/ 72mm Hg (08/28/22 9:37 AM) Mode of Delivery (Oxygen) Room air (08/28/22 9:37 AM) Blood pressure sites Arm, right (08/28/22 9:37 AM) Weight Obtained Via Standing scale (08/28/22 9:37 AM) Social History Social History Type Response Smoking Status Former smoker entered on: 09/06/14 Sex Patient Care team information Care Team Personnel Name: Francoise Black RN Position: S RN Member Role: Primary Care Nurse Name: Chiqui Stoll RN Position: S RN Member Role: Primary Care Nurse Name: Robert Feliz MD Position: [facility] Primary Care Physician Member Role: PCP Address: Address: [address] [place] [address]- Care Team Related Persons Name: RAMIRO MARR Address: home [address] [place] [address]
--- OUTSIDE RECORDS SUMMARY | 2023-08-31 08:19 | XMS_ITS | Continuity of Care Document ---
Author Organization [facility] Address [address] [place] [address]- Care Team Providers Care Supervisor Stave Finishing Name Role Phone Tray BROWN, Robert Anthony Primary Care Physician [phone] Encounter [facility] Date(s): 12/12/20 - 01/11/21 [facility] [address] [facility] [address] [place] [address]- Allergies, Adverse Reactions, Alerts Substance Reaction Severity [...] [place] 2Location History: [facility] 3Result Comment: [06/19/2016] [place] 4Result Comment: [06/19/2016] [facility] 5Early/Late Reason: Other : 6Result Comment: [06/19/2016] [place] 7Result Comment: [06/19/2016] [facility] 8Result Comment: [06/19/2016] [facility] 9Result Comment: [06/19/2016] [place] Medications albuterol 0.083% inhalation solution 3 mL = 2.5 mg, Inhalation, Every 6 hours, use Acapella device after every treatment, # 120 each, 3 Refills, Maintenance, 06/27/20 15:48:00 EST, Solution, [facility] #75886, 151, cm, 02/05/20 7:35:00 EDT, Height Start Date: 06/27/20 Status: Ordered amoxicillin 500 mg oral capsule 4 capsule = 2,000 mg, By Mouth, Once, take 4 capsules prior to dental procedure, # 4 capsule, 0 Refills, Soft Stop, 08/15/20 16:35:00 EDT, [facility] #58208, 151, cm, 02/05/20 7:35:00 EDT, Height Start Date: 08/15/20 Status: Ordered Hyper-Don 7% inhalation solution 4 mL = 0.28 Gm, Neb, 2 times a day, take with 0.5ml = 2.5 mg albuterol (add hypersal 4ml to 0.5ml albuterol) twice a day, # 240 mL, 11 Refills, Maintenance, 08/07/20 9:58:00 EDT, [facility]94044, J47.0 bronchiectasis, 4 mL Neb 2 times a da... Start Date: 08/07/20 Stop Date: 08/02/21 Status: Ordered Lasix 40 mg oral tablet 40 mg, 1, tablet, By Mouth, Daily, prescribed by [facility] doctor 12/18/20, # 30 tablet, Refills 2, Tot. Refills 2, Maintenance, 01/10/21 13:42:00 EDT, Route to Pharmacy Electronically, [facility] #[id number], Partial fill upon patient request if th... Start Date: 01/10/21 Status: Ordered meloxicam 7.5 mg oral tablet 1 tablet, By Mouth, Daily, # 90 tablet, 0 Refills, [facility] #49471, 151, cm, 12/27/20 8:19:00 EDT, Height Start [...] 01/10/21 13:45:00 EDT, Route to Pharmacy Electronically, [facility] #[id number], Partial fill upon patientrequest if the prescription is for a schedule II op... Start Date: 01/10/21 Status: Ordered ProAir HFA 90 mcg/inh inhalation aerosol with adapter 2, puffs, Inhalation, 4 times a day, PRN, # 1 each, Refills 6, Tot. Refills 6, Maintenance, 08/26/20 14:10:00 EDT, Route to Pharmacy Electronically, [id number], [facility] #[id number], 151, cm, 08/26/20 13:26:00 EDT, Height Start Date: 08/26/20 Status: Ordered Trelegy Ellipta 200 mcg-62.5 mcg-25 mcg/inh inhalation powder 1 puffs, Inhalation, Daily, at the same time every day, # 1 each, 6 Refills, Maintenance, 12/06/20 9:31:00 EDT, Powder, [facility] #[id number], Partial fill upon patient request if the [...]
--- OUTSIDE RECORDS SUMMARY | 2023-08-31 08:19 | XMS_ITS | Continuity of Care Document ---
Author Organization [facility] Address [address] [place] [address]- Care Team Providers Care Coal Unloader Name Role Phone Tray BROWN, Robert Anthony Primary Care Physician [place] [facility] [place] 06/12[place]21 - 07/12/21 [facility] [address] [facility] [address] [place] [address]- Allergies, Adverse Reactions, Alerts Substance Reaction Severity [...] 3 Refills, Maintenance, 06/27/20 15:48:00 EST, Solution, [facility] #[id number], 151, cm, 02/05/20 7:35:00 EDT, Height Start [...] 5 Refills, Soft Stop, 05/06/21 17:27:00 EST, [facility] #[id number], 151, cm, 05/05/21 12:08:00 EST,Height Start Date: [...] Replace Required Details, Route to Pharmacy Electronically, [facility], 151, cm, 05/05/21 12:08:00 EST, Height Start Date: 05/23/21 Status: Ordered Hyper-Don 7% inhalation solution 4 mL = 0.28 Gm, Neb, 2 times a day, for 30 days, take with 0.5ml = 2.5 mg albuterol (add hypersal 4ml to 0.5ml albuterol) twice a day, # 240 mL, 11 Refills, Hard Stop 08/02/21 9:58:00 EDT, 08/07/20 9:58:00 EDT, [facility] #43696, J47.[facility] Start Date: 08/07/20 Stop Date: 08/02/21 Status: Ordered Hyper-Don 7% inhalation solution 4 mL = 0.28 Gm, Neb, 2 times a day, take with 0.5ml = 2.5 mg albuterol (add hypersal 4ml to 0.5ml albuterol) twice a day, # 720 mL, 1 Refills, Maintenance, 08/02/21 9:58:00 EDT, [facility], J47.0 bronchiectasis, 4 mL [...] Mouth, Daily, # 90 tablet, 0 Refills, [facility] #24965, 151, cm, 12/27/20 8:19:00 EDT, Height Start [...] 01/10/21 13:45:00 EDT, Route to Pharmacy Electronically, [facility] #33021, Partial fill upon patientrequest if the prescription is for a schedule II op... Start Date: 01/10/21 Status: Ordered ProAir HFA 90 mcg/inh inhalation aerosol with adapter 2, puffs, Inhalation, 4 times a day, PRN, # 1 each, Refills 6, Tot. Refills 6, Maintenance, 08/26/20 14:10:00 EDT, Route to Pharmacy Electronically, [id number], [facility] #[id number], 151, cm, 08/26/20 13:26:00 EDT, Height Start Date: 08/26/20 Status: Ordered rosuvastatin 5 mg oral tablet 1 tablet = 5 mg, By Mouth, Daily, # 30 tablet, 5 Refills, Maintenance, 04/08/21 9:24:00 EST, Tablet, [id number], 151, cm, 03/07/21 9:27:00 EST, Height Start Date: 04/08/21 Stop Date: 10/05/21 Status: Ordered Sodium Chloride, Inhalation 0.9% inhalation solution 4 mL = 0.036 Gm, Neb, 2 times a day, use with 0.5% albuterol solution together in nebulizer, # 240 mL, 6 Refills, Maintenance, 06/12/21 19:39:00 EST, [facility] #[id number], Partial fill upon patient request if the [...]
--- OUTSIDE RECORDS SUMMARY | 2023-08-31 08:19 | XMS_ITS | Continuity of Care Document ---
Author Organization [facility] Address [address] [place] [address]- Care Team Providers Care Gore Inserter Name Role Phone Tray BROWN, Robert Anthony Primary Care Physician [phone] Encounter [facility] Date(s): 05/07/22 - 06/06/22 [facility] [address] [place] [address]- [place] Allergies, Adverse Reactions, Alerts Substance Reaction Severity Status codeine Active Fish Active tetanus toxoid Active sulfa drugs Active Immunizations Given and Recorded Vaccine Date Status Refusal Reason Influenza Virus Vaccine (oldterm) 1 02/03/22 Recor ded SARS-CoV-2 mRNA (yvioybg-rvtv-bknce) vax 08/06/21 Recorded SARS-CoV-2 (COVID-19) mRNA BNT-162b2 [...] 06/20/12 Recorde d 1Result Comment: influenza at [facility] 2Location History: [facility] 3Location History: [facility] 4Result Comment: [06/19/2016] [facility] 5Result Comment: [06/19/2016] [facility] 6Early/Late Reason: Other : 7Result Comment: [06/19/2016] [place] 8Result Comment: [06/19/2016] [facility] 9Result Comment: [06/19/2016] [facility] 10Result Comment: [06/19/2016] [place] Medications albuterol 0.083% inhalation solution 3 mL, Inhalation, Every 6 hours, USE ACAPELLA DEVICE AFTER EVERY TREATMENT., # 360 mL, 5 Refills, [facility] #[id number], 151, cm, 09/29/21 13:12:00 EDT, Height, 61.69, [...] 10/17/21 15:25:00 EDT, Route to Pharmacy Electronically, [id number], [facility] #[id number], 151, cm, 09/29/21 13:12:00 EDT, Hei... Start Date: 10/17/21 Status: Ordered Sodium Chloride, Inhalation 0.9% inhalation solution See Instructions, USE 4 ML VIA NEBULIZER TWICE DAILY USE WITH 0.5% VIA INHALER SOLUTION TOGETHER INVIA NEBULIZER, # 300 mL, 0 Refills, Maintenance, 04/28/22 9:38:00 EST, [facility] #15455,25, USE 4 ML VIA NEBULIZER TWICE DAILY [...] chart review meeting GFR criteria 5Admission [place] [facility] [place] 11/2020. Cardiac MRI: LVEF 44%; 12/16/20 echo at [facility]: LVEF=40-45% [id number]-[id number] as lung mass. S/P R-CHOP x 6 cycles. Social History Social History Type Response Smoking Status Former smoker entered on: 09/06/14 Sex Patient Care team information Care Team Personnel Name: Francoise Black RN Position: S RN Member Role: Primary Care Nurse Name: Dodie SPARKS, Chiqui Position: [facility] RN Member Role: Primary Care Nurse Name: Tray BROWN, Robert Anthony Position: [facility] Primary Care Physician Member Role: PCP Address: Address: [address] [place] [address]- Care Team Related Persons Name: RAMIRO MARR Address: home [address] [place] [address]
--- OUTSIDE RECORDS SUMMARY | 2023-08-31 08:19 | XMS_ITS | Continuity of Care Document ---
Author Organization [facility] Address [address] [place] [address]- Care Team Providers Care Commercial Loan Officer Name Role Phone Tray BROWN, Robert Anthony Primary Care Physician Encounter [facility] Date(s): 04/14/22 - 05/14/22 [facility] [address] [place] [address]- [place] Allergies, Adverse Reactions, Alerts Substance Reaction Severity Status codeine Active Fish Active tetanus toxoid Active sulfa drugs Active Immunizations Given and Recorded Vaccine Date Status Refusal Reason Influenza Virus Vaccine (oldterm) 1 02/03/22 Recor ded SARS-CoV-2 mRNA (pveqyah-zylw-ndgpd) vax 08/06/21 Recorded SARS-CoV-2 (COVID-19) mRNA BNT-162b2 [...] EVERY TREATMENT., # 360 mL, 5 Refills, [facility] #[id number], 151, cm, 09/29/21 13:12:00 EDT, Height, 61.69, [...] 10/17/21 15:25:00 EDT, Route to Pharmacy Electronically, [id number], [facility] #[id number], 151, cm, 09/29/21 13:12:00 EDT, Hei... Start Date: 10/17/21 Status: Ordered Sodium Chloride, Inhalation 0.9% inhalation solution See Instructions, USE 4 ML VIA NEBULIZER TWICE DAILY USE WITH 0.5% VIA INHALER SOLUTION TOGETHER INVIA NEBULIZER, # 300 mL, 0 Refills, Maintenance, 04/28/22 9:38:00 EST, [facility] #92129,25, USE 4 ML VIA NEBULIZER TWICE DAILY [...] chart review meeting GFR criteria 5Admission to [facility] for [place] 11/2020. Cardiac MRI: LVEF 44%; 12/16/20 echo at [facility]: LVEF=40-45% [id number]-Kxskamlke as lung mass. S/P R-CHOP x 6 cycles. Social History Social History Type Response Smoking Status Former smoker entered on: 09/06/14 Sex Patient Care team information Care Team Personnel Name: Francoise Black RN Position: S RN Member Role: Primary Care Nurse Name: Dodie SPARKS, Chiqui Position: [facility] RN Member Role: Primary Care Nurse Name: Tray BROWN, Robert Anthony Position: [facility] Primary Care Physician Member Role: PCP Address: Address: [address] [place] [address]- Care Team Related Persons Name: RAMIRO MARR Address: home [address] [place] [address]
--- OUTSIDE RECORDS SUMMARY | 2023-08-31 08:19 | XMS_ITS | Continuity of Care Document ---
Author Organization [facility] Address [address] [place] [address]- Care Team Providers Care Policy Change Clerk Name Role Phone Tray BROWN, Robert Anthony Primary Care Physician [phone] Encounter [facility] [place] [id number] Date(s): 12/04/20 - 04/03/21 [facility] [address] [place] [address]- Attending Physician: Kenneth Chowdary MD Admitting Physician: Kenneth Chowdary MD Allergies, Adverse Reactions, [...] vaccine 9 06/20/12 Recorded 1Location History: [facility] 2Location History: [facility] 3Result Comment: [06/19/2016] [facility] 4Result Comment: [06/19/2016] [facility] 5Early/Late Reason: Other : 6Result Comment: [06/19/2016] [place] 7Result Comment: [06/19/2016] [facility] 8Result Comment: [06/19/2016] [facility] 9Result Comment: [06/19/2016] [place] Medications albuterol 0.083% inhalation solution 3 mL = 2.5 mg, Inhalation, Every 6 hours, use Acapella device after every treatment, # 120 each, 3 Refills, Maintenance, 06/27/20 15:48:00 EST, Solution, [facility] #[id number], 151, cm, 02/05/20 7:35:00 EDT, Height Start Date: 06/27/20 Status: Ordered amoxicillin 500 mg oral capsule 4 capsule = 2,000 mg, By Mouth, Once, take 4 capsules prior to dental procedure, # 4 capsule, 0 Refills, Soft Stop, 08/15/20 16:35:00 EDT, [facility] #33055, 151, cm, 02/05/20 7:35:00 EDT, Height Start Date: 08/15/20 Status: Ordered Hyper-Don 7% inhalation solution 4 mL = 0.28 Gm, Neb, 2 times a day, take with 0.5ml = 2.5 mg albuterol (add hypersal 4ml to 0.5ml albuterol) twice a day, # 240 mL, 11 Refills, Maintenance, 08/07/20 9:58:00 EDT, [facility]#64611, J47.0 bronchiectasis, 4 mL Neb 2 times a da... Start Date: 08/07/20 Stop Date: 08/02/21 Status: Ordered Lasix 40 mg oral tablet 40 mg, 1, tablet, By Mouth, Daily, prescribed by [facility] doctor 12/18/20, # 30 tablet, Refills 2, Tot. Refills 2, Maintenance, 01/10/21 13:42:00 EDT, Route to Pharmacy Electronically, [facility] #[id number], Partial fill upon patient request if th... Start Date: 01/10/21 Status: Ordered losartan 25 mg oral tablet 12.5 mg, 0.5, tablet, By Mouth, Daily, Take 0.5 tablet (12.5mg) daily, # 15 tablet, Refills 11, Tot. Refills 11, Maintenance, 02/05/21 8:59:00 EDT, Route to Pharmacy Electronically, [facility] #[id number], Partial fill upon patient request if the... Start Date: 02/05/21 Status: Ordered meloxicam 7.5 mg oral tablet 1 tablet, By Mouth, Daily, # 90 tablet, 0 Refills, [facility] #[id number], 151, cm, 12/27/20 8:19:00 EDT, Height Start Date: 12/27/20 Status: Ordered Nebulizer/Compressor See Instructions, # 1 each, Refills 11, Tot. Refills 11, Maintenance, E0570 Nebulizer A7003 Neb Disp Set A7014 Neb non-Disp Filter A7005 Neb Non-Disp set A7015 Aerosol Mask A7013 Neb Disp Filter length of need lifetime 99 months DX COPD J44.9, 03... Start Date: 06/27/20 Status: Ordered Plavix 75 mg oral tablet 75 mg, 1, tablet, By Mouth, Daily, # 30 tablet, Refills 2, Tot. Refills 2, Maintenance, 01/10/21 13:45:00 EDT, Route to Pharmacy Electronically, [facility] #[id number], Partial fill upon patientrequest if the prescription is for a schedule II op... Start Date: 01/10/21 Status: Ordered ProAir HFA 90 mcg/inh inhalation aerosol with adapter 2, puffs, Inhalation, 4 times a day, PRN, # 1 each, Refills 6, Tot. Refills 6, Maintenance, 08/26/20 14:10:00 EDT, Route to Pharmacy Electronically, [id number], [facility] #[id number], 151, cm, 08/26/20 13:26:00 EDT, Height Start Date: 08/26/20 Status: Ordered rosuvastatin 5 mg oral capsule 1 capsule = 5 mg, By Mouth, Daily, # 30 capsule, 6 Refills, Maintenance, 03/28/21 16:12:00 EST, Capsule, [facility] #[id number], Partial fill upon patient request if the prescription is for a schedule II opioid drug., 151, cm, 03/07/21 9:27:00 ES... Start Date: 03/28/21 Status: Ordered Trelegy Ellipta 200 mcg-62.5 mcg-25 mcg/inh inhalation powder 1 puffs, Inhalation, Daily, at the same time every day, # 1 each, 6 Refills, Maintenance, 12/06/20 9:31:00 EDT, Powder, [facility] #[id number], Partial fill upon patient request if the [...]
--- OUTSIDE RECORDS SUMMARY | 2023-08-31 08:19 | XMS_ITS | Continuity of Care Document ---
Author Organization [facility] Address [address] [place] [address]- Care Team Providers Care Radio Script Writer Name Role Phone Tray BROWN, Robert Anthony Primary Care Physician Encounter [facility] Date(s): 05/31/19 - 05/31/[address] [address]- [facility] Attending Physician: Mor Diaz MD Allergies, Adverse Reactions, [...] Recorded 1Location History: [facility]Location [facility]: [facility] 3Result Comment: [06/19/2016] [facility] 4Result Comment: [06/19/2016] [facility] 5Early/Late Reason: Other : 6Result Comment: [06/19/2016] [facility] 7Result Comment: [06/19/2016] [facility] 8Result Comment: [06/19/2016] [facility] 9Result Comment: [06/19/2016] [place] Medications amoxicillin 500 [...] 10/03/18 15:01:00 EDT, Route to Pharmacy Electronically, [id number], [facility] [address], J47.9 Start Date: 10/03/18 Status: Ordered ProAir HFA 90 mcg/inh inhalation aerosol with adapter 2, puffs, Inhalation, 4 times a day, PRN, # 1 each, Refills 6, Tot. Refills 6, Maintenance, 05/17/19 14:49:00 EST, Route to Pharmacy Electronically, [id number], [facility] #[id number], 151, cm, 05/17/19 14:23:00 EST, Hei... Start [...]
--- OUTSIDE RECORDS SUMMARY | 2023-08-31 08:19 | XMS_ITS | Continuity of Care Document ---
Author Organization [facility] Zac lt Address [address] [place] [address]- Care Team Providers Care Hall Worker Name Role Phone Robert Feliz MD Primary Care Physician [phone] [place] [facility] [id number] Date(s): 12/16/21 - 01/15/22 [facility] Adult [address] [place] [address]- Attending Physician: Robert Feliz MD Allergies, Adverse Reactions, Alerts Substance Reaction Severity Status codeine Active tetanus toxoid Active sulfa drugs Active Immunizations Given and Recorded Vaccine Date Status Refusal Reason SARS-CoV-2 mRNA (vvsvmfh-ucid-fanvn) vax 08/06/21 Recorded SARS-CoV-2 (COVID-19) mRNA BNT-162b2 [...] EVERY TREATMENT., # 360 mL, 5 Refills, [facility] #[id number], 151, cm, 09/29/21 13:12:00 EDT, Height, 61.69, kg, 09/29/21 13:11:00 EDT, Dry Weight Start Date: 11/13/21 Status: Ordered bisoprolol 5 mg oral tablet 0.5 tablet = 2.5 mg, By Mouth, Daily, # 45 tablet, 3 Refills, Maintenance, 06/12/21 13:52:00 EST, Tablet, [facility], 151, cm, 06/11/21 13:48:00 EST, Height Start Date: 06/12/21 Stop Date: 06/07/22 Status: Ordered clopidogrel 75 mg oral tablet 1, tablet, By Mouth, Daily, # 90 Unknown, Refills 3, Route to Pharmacy Electronically, [facility], 151, cm, 09/29/21 13:12:00 EDT, Height, 61.69, kg, 09/29/21 13:11:00 EDT, Dry Weight Start Date: 11/05/21 Status: Ordered Hyper-Don 7% inhalation solution 4 mL = 0.28 Gm, Neb, 2 times a day, take with 0.5ml = 2.5 mg albuterol (add hypersal 4ml to 0.5ml albuterol) twice a day J47.0, # 720 mL, 1 Refills, Maintenance, 07/28/22 9:58:00 EDT, [facility] #[id number], J47.0 bronchiectasis, 4 mL Neb 2 times... Start Date: 07/28/22 Status: Ordered Lasix 40 mg oral tablet 1, tablet, By Mouth, Daily, # 90 Unknown, Refills 3, Route to Pharmacy Electronically, [facility], 151, cm, 09/29/21 13:12:00 EDT, Height, 61.69, kg, 09/29/21 13:11:00 EDT, Dry Weight Start Date: 11/05/21 Status: Ordered losartan 25 mg oral tablet 12.5 mg, 0.5, tablet, By Mouth, Daily, Take 0.5 tablet (12.5mg) daily, # 45 tablet, Refills 3, Tot.Refills 3, Maintenance, 06/12/21 13:52:00 EST, Route to Pharmacy Electronically, [facility], 151, cm, 06/11/21 13:48:00 EST, Height [...] 10/17/21 15:25:00 EDT, Route to Pharmacy Electronically, [id number], [facility] #[id number], 151, cm, 09/29/21 13:12:00 EDT, Hei... Start Date: 10/17/21 Status: Ordered Sodium Chloride, Inhalation 0.9% inhalation solution 4 mL = 0.036 Gm, Neb, 2 times a day, use with 0.5% albuterol solution together in nebulizer, # 240 mL, 6 Refills, Maintenance, 06/12/21 19:39:00 EST, [facility] #[id number], Partial fill upon patient request if the [...] 1-49% stenosis; LICA 1-49% stenosis 4Admission to [facility] [place] for CHF 11/2020. Cardiac MRI: LVEF 44%; 12/16/20 echo at [facility]: LVEF=40-45% [id number] as lung mass. S/P R-CHOP x 6 cycles. Social History Social History Type Response Smoking Status Former smoker entered on: 09/06/14 Sex Care Team Personnel Name: Tray BROWN, Robert Anthony Address: [address] [place] [address]-
--- OUTSIDE RECORDS SUMMARY | 2023-08-31 08:19 | XMS_ITS | Continuity of Care Document ---
Author Organization [facility] [place] Zac lt Address [address] [place] [address]- Care Team Providers Care Math Professor Name Role Phone Tray BROWN, Robert Anthony Primary Care Physician Encounter [facility] [place] Date(s): 08/29/22 - 09/28/22 [facility] [place] Adult [address] [place] [address]- Allergies, Adverse Reactions, Alerts Substance Reaction Severity Status codeine Active Fish Active tetanus toxoid Active sulfa drugs Active Immunizations Given and Recorded Vaccine Date Status Refusal Reason [id number] 12y+ bivalent booster vax 08/15/22 Recorded Influenza Virus Vaccine (oldterm) 1 02/03/22 Recor ded SARS-CoV-2 mRNA (srdbizs-fpoh-xuzrs) vax 08/06/21 Recorded SARS-CoV-2 (COVID-19) mRNA BNT-162b2 [...] 06/20/12 [facility] 1Result Comment: influenza at [facility] 2Location History: [facility] 3Location History: [facility] 4Result Comment: [06/19/2016] [facility] 5Result Comment: [06/19/2016] [facility] 6Early/Late Reason: Other : 7Result Comment: [06/19/2016] [place] 8Result Comment: [06/19/2016] [facility] 9Result Comment: [06/19/2016] [facility] 10Result Comment: [06/19/2016] [facility] Medications albuterol 0.083% inhalation solution 3 mL, Inhalation, Every 6 hours, USE ACAPELLA DEVICE AFTER EVERY TREATMENT., # 360 mL, 5 Refills, [facility] #[id number], 151, cm, 09/29/21 13:12:00 EDT, Height, 61.69, kg, 09/29/21 13:11:00 EDT, Dry Weight Start Date: 11/13/21 Status: Ordered bisoprolol 5 mg oral tablet See Instructions, TAKE 1/2 TABLET DAILY, # 45 tablet, 1 Refills, Maintenance, 09/04/22 16:11:00 EDT, [facility], 150, cm, 08/28/22 9:37:00 EDT, Height, 61, kg, 04/17/22 11:31:00 EST, Dry Weight Start Date: 09/04/22 Status: Ordered clopidogrel 75 mg oral tablet 1, tablet, By Mouth, Daily, # 90 Unknown, Refills 0, Maintenance, 09/01/22 10:17:00 EDT, Route to Pharmacy Electronically, [facility], 150, cm, 08/28/22 9:37:00 EDT, Height, [...] Unknown, Refills 3, Route to Pharmacy Electronically, [facility], 151, cm, 09/29/21 13:12:00 EDT, Height, 61.69, kg, 09/29/21 13:11:00 EDT, Dry Weight Start Date: 11/05/21 Status: Ordered losartan 25 mg oral tablet See Instructions, TAKE 1/2 TABLET DAILY, # 45 tablet, 1 Refills, Maintenance, 09/04/22 16:13:00 EDT, [facility], 150, cm, 08/28/22 9:37:00 EDT, [...] 10/17/21 15:25:00 EDT, Route to Pharmacy Electronically, [id number], [facility] #[id number], 151, cm, 09/29/21 13:12:00 EDT, Hei... Start Date: 10/17/21 Status: Ordered Sodium Chloride, Inhalation 0.9% inhalation solution See Instructions, USE 4 ML VIA NEBULIZER TWICE DAILY USE WITH 0.5% VIA INHALER SOLUTION TOGETHER INVIA NEBULIZER, # 300 mL, 0 Refills, Maintenance, 04/28/22 9:38:00 EST, [facility] #[id number],25, USE 4 ML VIA NEBULIZER TWICE DAILY [...] chart review meeting GFR criteria 6Admission to [facility] for CHF 11/2020. Cardiac MRI: LVEF 44%; 12/16/20 echo at [facility]: LVEF=40-45% 8Per CT w/contrast 12/19/2021: Irregular partially calcified tissue along the distal left main pulmonary artery extending along the regular small caliber left lower lobe pulmonary artery branch probably reflecting chronic thrombus.. [id number] as lung mass. S/P R-CHOP x 6 cycles. Social History Social History Type Response Smoking Status Former smoker entered on: 09/06/14 Sex Patient Care team information Care Team Personnel Name: Francoise Black RN Position: [facility] RN Member Role: Primary Care Nurse Name: Chiqui Stoll RN Position: [facility] RN Member Role: Primary Care Nurse Name: Tray BROWN, Robert Anthony Position: [facility] Physician - Primary Care Member Role: PCP Address: Address: [address] [place] [address]- Care Team Related Persons Name: PARENTRAMIRO Address: home [address] [place] [address]
--- OUTSIDE RECORDS SUMMARY | 2023-08-31 08:19 | XMS_ITS | Continuity of Care Document ---
Author Organization [facility] Zac lt Address [address] [place] [address]- Care Team Providers Care Outsole Tacker Name Role Phone Tray BROWN, Robert Anthony Primary Care Physician [phone] [facility] [place] Date(s): 04/14/21 - 05/14/21 [facility] Adult [address] [place] [address]- Allergies, Adverse Reactions, Alerts Substance Reaction Severity [...] vaccine 9 06/20/12 Recorded 1Location History: [facility] 2Location History: [facility] 3Result Comment: [06/19/2016] [facility] 4Result Comment: [06/19/2016] [facility] 5Early/Late Reason: Other : 6Result Comment: [06/19/2016] [facility] 7Result Comment: [06/19/2016] [facility] 8Result Comment: [06/19/2016] [facility] 9Result Comment: [06/19/2016] [place] Medications albuterol 0.083% inhalation solution 3 mL = 2.5 mg, Inhalation, Every 6 hours, use Acapella device after every treatment, # 120 each, 3 Refills, Maintenance, 06/27/20 15:48:00 EST, Solution, [facility] #[id number], 151, cm, 02/05/20 7:35:00 EDT, Height Start Date: 06/27/20 Status: Ordered amoxicillin 500 mg oral capsule 4 capsule = 2,000 mg, By Mouth, Once, take 4 capsules prior to dental procedure, # 4 capsule, 5 Refills, Soft Stop, 05/06/21 17:27:00 EST, [facility] #[id number], 151, cm, 05/05/21 12:08:00 EST,Height Start Date: [...] Replace Required Details, Route to Pharmacy Electronically, [facility][id number], 151, cm, 03/07/21 9:27:00 EST, Height Start Date: 04/15/21 Status: Ordered Hyper-Don 7% inhalation solution 4 mL = 0.28 Gm, Neb, 2 times a day, take with 0.5ml = 2.5 mg albuterol (add hypersal 4ml to 0.5ml albuterol) twice a day, # 240 mL, 11 Refills, Maintenance, 08/07/20 9:58:00 EDT, [facility]#32637, J47.0 bronchiectasis, 4 mL Neb 2 times [...] 1, tablet, By Mouth, Daily, prescribed by [facility] [place] 12/18/20, # 30 tablet, Refills 5, Tot. Refills 5, Maintenance, 04/16/21 11:55:00 EST, Route to Pharmacy Electronically, [facility] #[id number], Partial fill upon patient request if th... Start Date: 04/16/21 Status: Ordered losartan 25 mg oral tablet 12.5 mg, 0.5, tablet, By Mouth, Daily, Take 0.5 tablet (12.5mg) daily, # 15 tablet, Refills 11, Tot. Refills 11, Maintenance, 02/05/21 8:59:00 EDT, Route to Pharmacy Electronically, [facility] #78993, Partial fill upon patient request if the... Start Date: 02/05/21 Status: Ordered meloxicam 7.5 mg oral tablet 1 tablet, By Mouth, Daily, # 90 tablet, 0 Refills, [facility] #[id number], 151, cm, 12/27/20 8:19:00 EDT, Height Start [...] 01/10/21 13:45:00 EDT, Route to Pharmacy Electronically, [facility] #96012, Partial fill upon patientrequest if the prescription is for a schedule II op... Start Date: 01/10/21 Status: Ordered ProAir HFA 90 mcg/inh inhalation aerosol with adapter 2, puffs, Inhalation, 4 times a day, PRN, # 1 each, Refills 6, Tot. Refills 6, Maintenance, 08/26/20 14:10:00 EDT, Route to Pharmacy Electronically, [id number], [facility] #[id number], 151, cm, 08/26/20 13:26:00 EDT, Height Start Date: 08/26/20 Status: Ordered rosuvastatin 5 mg oral tablet 1 tablet = 5 mg, By Mouth, Daily, # 30 tablet, 5 Refills, Maintenance, 04/08/21 9:24:00 EST, Tablet, [facility] #[id number], 151, cm, 03/07/21 9:27:00 EST, Height Start Date: 04/08/21 Stop Date: 10/05/21 Status: Ordered Trelegy Ellipta 200 mcg-62.5 mcg-25 mcg/inh inhalation powder 1 puffs, Inhalation, Daily, at the same time every day, # 1 each, 6 Refills, Maintenance, 12/06/20 9:31:00 EDT, Powder, [facility] #[id number], Partial fill upon patient request if the [...]
--- OUTSIDE RECORDS SUMMARY | 2023-08-31 08:19 | XMS_ITS | Continuity of Care Document ---
Author Organization [facility] Address [address] [place] [address]- Care Team Providers Care Unindentured Apprentice Name Role Phone Tray BROWN, Robert Anthony Primary Care Physician [place] [facility] [place] 08/22/21 - 09/21/21 [facility] [address] [place] [id number] Allergies, Adverse Reactions, Alerts Substance Reaction [...] vaccine 9 06/20/12 Recorded 1Location History: [facility] 2Location History: [facility] 3Result Comment: [06/19/2016] [facility] 4Result Comment: [06/19/2016] [facility] 5Early/Late Reason: Other : 6Result Comment: [06/19/2016] [facility] 7Result Comment: [06/19/2016] [facility] 8Result Comment: [06/19/2016] [facility] 9Result Comment: [06/19/2016] [facility] Medications albuterol 0.083% inhalation solution 3 mL, Inhalation, Every 6 hours, USE ACAPELLA DEVICE AFTER EVERY TREATMENT., # 360 mL, 0 Refills, [facility] #[id number], 151, cm, 06/11/21 13:48:00 EST, Height Start Date: 08/18/21 Status: Ordered albuterol 5 mg/mL (0.5%) inhalation solution 0.5 mL = 2.5 mg, Inhalation, Every 6 hours, PRN for wheezing, # 20 mL, 11 Refills, Maintenance, 08/26/21 14:10:00 EDT, Solution, [facility] #[id number], Partial fill upon patient request if the prescription is for a schedule II opioid drug., 151,... Start Date: 08/26/21 Status: Ordered amoxicillin 500 mg oral capsule 4 capsule = 2,000 mg, By Mouth, Once, take 4 capsules prior to dental procedure, # 4 capsule, 5 Refills, Soft Stop, 05/06/21 17:27:00 EST, [facility] #[id number], 151, cm, 05/05/21 12:08:00 EST,Height Start Date: [...] Replace Required Details, [facility], 151, cm, 05/05/21 12:08:00 EST, Height Start Date: 05/23/21 Status: Ordered Hyper-Don 7% inhalation solution 4 mL = 0.28 Gm, Neb, 2 times a day, take with 0.5ml = 2.5 mg albuterol (add hypersal 4ml to 0.5ml albuterol) twice a day J47.0, # 720 mL, 1 Refills, Maintenance, 07/28/22 9:58:00 EDT, [facility] #[id number], J47.0 bronchiectasis, 4 mL Neb 2 times... Start Date: 07/28/22 Status: Ordered Hyper-Don 7% inhalation solution 4 mL = 0.28 Gm, Neb, 2 times a day, take with 0.5ml = 2.5 mg albuterol (add hypersal 4ml to 0.5ml albuterol) twice a day, # 720 mL, 1 Refills, Hard Stop 07/28/22 9:58:00 EDT, 08/02/21 9:58:00 EDT, [facility], J47.0 bronchiectasis, 151, cm,... Start [...] [facility] [place] [facility] 12/18/20, # 90 [...] 06/12/21 13:52:00 EST, Route to Pharmacy Electronically, [facility], 151, cm, 06/11/21 13:48:00 EST, Height Start Date: 06/12/21 Stop Date: 06/07/22 Status: Ordered meloxicam 7.5 mg oral tablet 1 tablet, By Mouth, Daily, # 90 tablet, 0 Refills, [facility] #[id number], 151, cm, 12/27/20 8:19:00 EDT, Height Start [...] 01/10/21 13:45:00 EDT, Route to Pharmacy Electronically, [facility] #[id number], Partial fill upon patientrequest if the prescription is for a schedule II op... Start Date: 01/10/21 Status: Ordered rosuvastatin 5 mg oral tablet 1 tablet = 5 mg, By Mouth, Daily, # 30 tablet, 5 Refills, Maintenance, 04/08/21 9:24:00 EST, Tablet, [facility] #[id number], 151, cm, 03/07/21 9:27:00 EST, Height Start Date: 04/08/21 Stop Date: 10/05/21 Status: Ordered Sodium Chloride, Inhalation 0.9% inhalation solution 4 mL = 0.036 Gm, Neb, 2 times a day, use with 0.5% albuterol solution together in nebulizer, # 240 mL, 6 Refills, Maintenance, 06/12/21 19:39:00 EST, [facility] #[id number], Partial fill upon patient request if the [...]
--- OUTSIDE RECORDS SUMMARY | 2023-08-31 08:19 | XMS_ITS | Continuity of Care Document ---
Author Organization [facility] Address [address] [place] [address]- Care Team Providers Care Conference Service Coordinator Name Role Phone Tray BROWN, Robert Anthony Primary Care Physician Encounter [facility] Date(s): 03/09/22 - 04/08/22 [facility] [address] [place] [address]- [place] Allergies, Adverse Reactions, Alerts Substance Reaction Severity Status codeine Active tetanus toxoid Active sulfa drugs Active Immunizations Given and Recorded Vaccine Date Status Refusal Reason Influenza Virus Vaccine (oldterm) 1 02/03/22 Recor ded SARS-CoV-2 mRNA (tddncst-gcza-mhjxi) vax 08/06/21 Recorded SARS-CoV-2 (COVID-19) mRNA BNT-162b2 [...] EVERY TREATMENT., # 360 mL, 5 Refills, [facility] #[id number], 151, cm, 09/29/21 13:12:00 EDT, Height, 61.69, kg, 09/29/21 13:11:00 EDT, Dry Weight Start Date: 11/13/21 Status: Ordered amoxicillin 500 mg oral capsule 4 capsule = 2,000 mg, By Mouth, Once, take 4 capsules prior to dental procedure, # 4 capsule, 5 Refills, Soft Stop, 03/09/22 6:10:00 EST, [facility] #[id number], 151, cm, 02/11/22 8:43:00 EDT, Height, 61.69, kg, 09/29/21 13:11:00 EDT, Dry Weight Start Date: 03/09/22 Status: Ordered Azithromycin 5 Day Dose Pack 250 mg oral tablet See Instructions, as directed on package labeling, # 6 tablet, 0 Refills, Maintenance, 04/08/22 10:23:00 EST, Tablet, [facility] #[id number], Partial fill upon patient request if the [...] Unknown, Refills 3, Route to Pharmacy Electronically, [facility], 151, cm, 09/29/21 13:12:00 EDT, Height, 61.69, kg, 09/29/21 13:11:00 EDT, Dry Weight Start Date: 11/05/21 Status: Ordered Hyper-Don 7% inhalation solution 4 mL = 0.28 Gm, Neb, 2 times a day, take with 0.5ml = 2.5 mg albuterol (add hypersal 4ml to 0.5ml albuterol) twice a day J47.0, # 720 mL, 1 Refills, Maintenance, 07/28/22 9:58:00 EDT, [facility] #63772, J47.0 bronchiectasis, 4 mL Neb 2 times... Start Date: 07/28/22 Status: Ordered Lasix 40 mg oral tablet 1, tablet, By Mouth, Daily, # 90 Unknown, Refills 3, [facility] to Pharmacy Electronically, [facility], 151, cm, 09/29/21 13:12:00 EDT, Height, 61.69, kg, 09/29/21 13:11:00 EDT, Dry Weight Start Date: 11/05/21 Status: Ordered losartan 25 mg oral tablet 12.5 mg, 0.5, tablet, By Mouth, Daily, Take 0.5 tablet (12.5mg) daily, # 45 tablet, Refills 3, Tot.Refills 3, Maintenance, 06/12/21 13:52:00 EST, Route to Pharmacy Electronically, [facility], 151, cm, 06/11/21 13:48:00 EST, [...] J44.9, 03/... Start Date: 06/27/20 Status: Ordered Pepcid Complete [...] Acute 05/02/22 10:23:00 EST, 04/08/22 10:23:00 EST, [facility] #[id number], Partial fill upon patient request if the prescription is for a... Start Date: 04/08/22 Stop Date: 05/02/22 Status: Ordered ProAir HFA 90 mcg/inh inhalation aerosol with adapter 2, puffs, Inhalation, 4 times a day, PRN, # 1 each, Refills 5, Tot. Refills 5, Maintenance, 10/17/21 15:25:00 EDT, Route to Pharmacy Electronically, [id number], [facility] #[id number], 151, cm, 09/29/21 13:12:00 EDT, Hei... Start Date: 10/17/21 Status: Ordered Sodium Chloride, Inhalation 0.9% inhalation solution 4 mL = 0.036 Gm, Neb, 2 times a day, use with 0.5% albuterol solution together in nebulizer, # 240 mL, 6 Refills, Maintenance, 06/12/21 19:39:00 EST, [facility] #[id number], Partial fill upon patient request if the [...] review meeting GFR criteria 5Admission to [facility] [place] 11/2020. Cardiac MRI: LVEF 44%; 12/16/20 echo at [facility] [place]: LVEF=40-45% [address]-Ozgucwrma as lung mass. S/P R-CHOP x 6 cycles. Social History Social History Type Response Smoking Status Former smoker entered on: 09/06/14 Sex Patient Care team information Care Team Personnel Name: Chiqui Stoll RN Position: [facility] RN Member Role: Primary Care Nurse Name: Robert Feliz MD Position: [facility] Primary Care Physician Member Role: PCP Address: Address: [address] [place] [address]- Care Team Related Persons Name: RAMIRO MARR Address: home [address] [place] [id number]
--- OUTSIDE RECORDS SUMMARY | 2023-08-31 08:19 | XMS_ITS | Continuity of Care Document ---
Author Organization [facility] Zac lt Address [address] [place] [address]- Care Team Providers Care Clothing Presser Name Role Phone Tray BROWN, Robert Anthony Primary Care Physician [place] [facility] Date(s): 05/02/20 - 06/01/20 [facility] Adult [address] [place] [address]- Allergies, Adverse Reactions, Alerts Substance Reaction Severity [...] Recorded 1Location History: [facility] 3Result Comment: [06/19/2016] [facility] 4Result Comment: [06/19/2016] [facility] 5Early/Late Reason: Other : 6Result Comment: [06/19/2016] [facility] 7Result Comment: [06/19/2016] [facility] 8Result Comment: [06/19/2016] [facility] 9Result Comment: [06/19/2016] [facility]AN[facility] Medications amoxicillin 500 mg oral capsule 4 capsule = 2,000 mg, By Mouth, Once, take 4 capsules prior to dental procedure, # 4 capsule, 0 Refills, Soft Stop, 12/27/19 12:56:00 EDT, [facility] #[id number], 151, cm, 11/22/19 11:48:00 EDT,Height, 65.4, kg, 05/02/18 11:04:00 EST, Dry Weight Start Date: 12/27/19 Status: Ordered aspirin 81 mg oral tablet, chewable 81 mg, 1, tablet, By Mouth, Daily, # 90 tablet, Refills 3, Tot. Refills 3, Maintenance, 02/05/20 7:58:00 EDT, Route to Pharmacy Electronically, [facility] #[id number], 151, cm, 02/05/20 7:35:00 EDT, Height, 65.4, kg, 05/02/18 11:04:00 EST, Dry We... Start Date: 02/05/20 Status: Ordered meloxicam 7.5 mg oral tablet 1 tablet = 7.5 mg, By Mouth, Daily, # 90 tablet, 1 Refills, Maintenance, 01/05/20 8:12:00 EDT, Tablet, [facility] #[id number], 151, cm, 11/22/19 11:48:00 EDT, Height, 65.4, [...] 05/17/19 14:49:00 EST, Route to Pharmacy Electronically, [id number], [facility] #[id number], 151, cm, 05/17/19 14:23:00 EST, Hei... Start [...] 05/07/20 13:57:00 EST, Route to Pharmacy Electronically, [facility] #02791, 151, cm, 02/05/20 7:35:00 EDT, Height Start [...]
--- OUTSIDE RECORDS SUMMARY | 2023-08-31 08:19 | XMS_ITS | Continuity of Care Document ---
Author Organization [facility] Zac lt Address [address] [place] [address]- Care Team Providers Care Carpet Layer Name Role Phone Tray BROWN, Robert Anthony Primary Care Physician [phone] [place] [facility] [place] Date(s): 11/29/20 - 12/29/20 [facility] Adult [address] [place] [address]- Allergies, Adverse Reactions, Alerts Substance Reaction Severity [...] 3 Refills, Maintenance, 06/27/20 15:48:00 EST, Solution, [facility] #[id number], 151, cm, 02/05/20 7:35:00 EDT, Height Start Date: 06/27/20 Status: Ordered amoxicillin 500 mg oral capsule 4 capsule = 2,000 mg, By Mouth, Once, take 4 capsules prior to dental procedure, # 4 capsule, 0 Refills, Soft Stop, 08/15/20 16:35:00 EDT, [facility] #[id number], 151, cm, 02/05/20 7:35:00 EDT, Height Start Date: 08/15/20 Status: Ordered aspirin 81 mg oral tablet, chewable 81 mg, 1, tablet, By Mouth, Daily, # 90 tablet, Refills 3, Tot. Refills 3, Maintenance, 02/05/20 7:58:00 EDT, Route to Pharmacy Electronically, [facility] #[id number], 151, cm, 02/05/20 7:35:00 EDT, Height, 65.4, kg, 05/02/18 11:04:00 EST, Dry We... Start Date: 02/05/20 Status: Ordered Hyper-Don 7% inhalation solution 4 mL = 0.28 Gm, Neb, 2 times a day, take with 0.5ml = 2.5 mg albuterol (add hypersal 4ml to 0.5ml albuterol) twice a day, # 240 mL, 11 Refills, Maintenance, 08/07/20 9:58:00 EDT, [facility]24223, J47.0 bronchiectasis, 4 mL Neb 2 times a da... Start Date: 08/07/20 Stop Date: 08/02/21 Status: Ordered Lasix 40 mg oral tablet 40 mg, 1, tablet, By Mouth, Daily, prescribed by [facility] [place] doctor 12/18/20, # 30 tablet, Refills 0, Maintenance, 12/19/20 13:31:00 EDT, Partial fill upon patient request if the prescription is for a schedule II opioid drug. Start Date: 12/19/20 Status: Ordered meloxicam 7.5 mg oral tablet 1 tablet, By Mouth, Daily, # 90 tablet, 0 Refills, [facility] #[id number], 151, cm, 12/27/20 8:19:00 EDT, Height Start [...] 1, tablet, By Mouth, Daily, Prescribed by [facility] doctory 12/18/20 stop asa [...] 08/26/20 14:10:00 EDT, Route to Pharmacy Electronically, [id number], [facility] #[id number], 151, cm, 08/26/20 13:26:00 EDT, Height Start [...] 6 Refills, Maintenance, 12/06/20 9:31:00 EDT, Powder, [facility] #[id number], Partial fill upon patient request if the [...]
--- OUTSIDE RECORDS SUMMARY | 2023-08-31 08:19 | XMS_ITS | Continuity of Care Document ---
Author Organization [facility] Riky Zac lt Address [address] [place] [address]- Care Team Providers Care Plater Hot Dip Name Role Phone Tray BROWN, Robert Anthony Primary Care Physician [place] [facility] [place] - 09/20/21 [facility] Adult [address] [place] [address]- Allergies, Adverse Reactions, Alerts Substance Reaction Severity Status codeine Active tetanus toxoid Active sulfa drugs Active Immunizations Given and Recorded Vaccine Date Status Refusal Reason SARS-CoV-2 (COVID-19) mRNA BNT-162b2 vac 01/27/21 Recorded SARS-CoV-2 (COVID-19) mRNA BNT-162b2 vac 06/24/20 Given SARS-CoV-2 (COVID-19) mRNA BNT-162b2 vac 06/03/20 Recorded influenza virus vaccine, inactivated 01/15/21 Apulino rded influenza virus vaccine, inactivated 02/01/20 Paulino [...] vaccine 9 06/20/12 Recorded 1Location History: [facility] 2Location History: [facility] 3Result Comment: [06/19/2016] [facility] 4Result Comment: [06/19/2016] [facility] 5Early/Late Reason: Other : 6Result Comment: [06/19/2016] [place] 7Result Comment: [06/19/2016] [facility] 8Result Comment: [06/19/2016] [facility] 9Result Comment: [06/19/2016] [place] Medications albuterol 0.083% inhalation solution 3 mL, Inhalation, Every 6 hours, USE ACAPELLA DEVICE AFTER EVERY TREATMENT., # 360 mL, 0 Refills, [facility] #[id number], 151, cm, 06/11/21 13:48:00 EST, Height Start Date: 08/18/21 Status: Ordered albuterol 5 mg/mL (0.5%) inhalation solution 0.5 mL = 2.5 mg, Inhalation, Every 6 hours, PRN for wheezing, # 20 mL, 11 Refills, Maintenance, 08/26/21 14:10:00 EDT, Solution, [facility] #[id number], Partial fill upon patient request if the prescription is for a schedule II opioid drug., 151,... Start Date: 08/26/21 Status: Ordered amoxicillin 500 mg oral capsule 4 capsule = 2,000 mg, By Mouth, Once, take 4 capsules prior to dental procedure, # 4 capsule, 5 Refills, Soft Stop, 05/06/21 17:27:00 EST, [facility] #[id number], 151, cm, 05/05/21 12:08:00 EST,Height Start Date: [...] Replace Required Details, Route to Pharmacy Electronically, [facility], 151, cm, 05/05/21 12:08:00 EST, Height Start Date: 05/23/21 Status: Ordered Hyper-Don 7% inhalation solution 4 mL = 0.28 Gm, Neb, 2 times a day, take with 0.5ml = 2.5 mg albuterol (add hypersal 4ml to 0.5ml albuterol) twice a day J47.0, # 720 mL, 1 Refills, Maintenance, 07/28/22 9:58:00 EDT, [facility] #[id number], J47.0 bronchiectasis, 4 mL Neb 2 times... Start Date: 07/28/22 Status: Ordered Hyper-Don 7% inhalation solution 4 mL = 0.28 Gm, Neb, 2 times a day, take with 0.5ml = 2.5 mg albuterol (add hypersal 4ml to 0.5ml albuterol) twice a day, # 720 mL, 1 Refills, Hard Stop 07/28/22 9:58:00 EDT, 08/02/21 9:58:00 EDT, [facility], J47.0 bronchiectasis, 151, cm,... Start Date: 08/02/21 Stop Date: 07/28/22 Status: Ordered Imodium Capsule 2 mg, By Mouth, Every 4 hours, Refills 0, Maintenance, 05/05/21 12:12:00 EST, Partial fill upon patient request if the prescription is for a schedule II opioid drug. Start Date: 05/05/21 Status: Ordered Lasix 40 mg oral tablet 40 mg, 1, tablet, By Mouth, Daily, prescribed by [facility] doctor 12/18/20, # 90 [...] 06/12/21 13:52:00 EST, Route to Pharmacy Electronically, [facility], 151, cm, 06/11/21 13:48:00 EST, Height Start Date: 06/12/21 Stop Date: 06/07/22 Status: Ordered meloxicam 7.5 mg oral tablet 1 tablet, By Mouth, Daily, # 90 tablet, 0 Refills, [facility] #[id number], 151, cm, 12/27/20 8:19:00 EDT, Height Start [...] 01/10/21 13:45:00 EDT, Route to Pharmacy Electronically, [facility] #[id number], Partial fill upon patientrequest if the prescription is for a schedule II op... Start Date: 01/10/21 Status: Ordered rosuvastatin 5 mg oral tablet 1 tablet = 5 mg, By Mouth, Daily, # 30 tablet, 5 Refills, Maintenance, 04/08/21 9:24:00 EST, Tablet, [facility] #[id number], 151, cm, 03/07/21 9:27:00 EST, Height Start Date: 04/08/21 Stop Date: 10/05/21 Status: Ordered Sodium Chloride, Inhalation 0.9% inhalation solution 4 mL = 0.036 Gm, Neb, 2 times a day, use with 0.5% albuterol solution together in nebulizer, # 240 mL, 6 Refills, Maintenance, 06/12/21 19:39:00 EST, [facility] #[id number], Partial fill upon patient request if the [...]
--- OUTSIDE RECORDS SUMMARY | 2023-08-31 08:19 | XMS_ITS | Continuity of Care Document ---
Author Organization [facility] Address [address] [place] [address]- Care Team Providers Care Professional Soccer Player Name Role Phone Tray BROWN, Robert Anthony Primary Care Physician [phone] Encounter [facility] [place] Date(s): 03/27/22 - 04/26/22 [facility] [address] [place] [address]- [place] Allergies, Adverse Reactions, Alerts Substance Reaction Severity Status codeine Active tetanus toxoid Active sulfa drugs Active Immunizations Given and Recorded Vaccine Date Status Refusal Reason Influenza Virus Vaccine (oldterm) 1 02/03/22 Recor ded SARS-CoV-2 mRNA (argkdwh-acmd-ijipo) vax 08/06/21 Recorded SARS-CoV-2 (COVID-19) mRNA BNT-162b2 [...] EVERY TREATMENT., # 360 mL, 5 Refills, [facility] #[id number], 151, cm, 09/29/21 13:12:00 EDT, Height, 61.69, kg, 09/29/21 13:11:00 EDT, Dry Weight Start Date: 11/13/21 Status: Ordered amoxicillin 500 mg oral capsule 4 capsule = 2,000 mg, By Mouth, Once, take 4 capsules prior to dental procedure, # 4 capsule, 5 Refills, Soft Stop, 03/09/22 6:10:00 EST, [facility] #[id number], 151, cm, 02/11/22 8:43:00 EDT, Height, 61.69, kg, 09/29/21 13:11:00 EDT, Dry Weight Start Date: 03/09/22 Status: Ordered Azithromycin 5 Day Dose Pack 250 mg oral tablet See Instructions, as directed on package labeling, # 6 tablet, 0 Refills, Maintenance, 04/08/22 10:23:00 EST, Tablet, [facility] #[id number], Partial fill upon patient request if the [...] Unknown, Refills 3, Route to Pharmacy Electronically, [facility], 151, cm, 09/29/21 13:12:00 EDT, Height, 61.69, kg, 09/29/21 13:11:00 EDT, Dry Weight Start Date: 11/05/21 Status: Ordered Hyper-Don 7% inhalation solution 4 mL = 0.28 Gm, Neb, 2 times a day, take with 0.5ml = 2.5 mg albuterol (add hypersal 4ml to 0.5ml albuterol) twice a day J47.0, # 720 mL, 1 Refills, Maintenance, 07/28/22 9:58:00 EDT, [facility] #[id number], J47.0 bronchiectasis, 4 mL Neb 2 times... Start Date: 07/28/22 Status: Ordered Lasix 40 mg oral tablet 1, tablet, By Mouth, Daily, # 90 Unknown, Refills 3, Route to Pharmacy Electronically, [facility], 151, cm, 09/29/21 13:12:00 EDT, Height, 61.69, kg, 09/29/21 13:11:00 EDT, Dry Weight Start Date: 11/05/21 Status: Ordered losartan 25 mg oral tablet 12.5 mg, 0.5, tablet, By Mouth, Daily, Take 0.5 tablet (12.5mg) daily, # 45 tablet, Refills 3, Tot.Refills 3, Maintenance, 06/12/21 13:52:00 EST, Route to Pharmacy Electronically, [facility], 151, cm, 06/11/21 13:48:00 EST, [...] Acute 05/02/22 10:23:00 EST, 04/08/22 10:23:00 EST, [facility] #[id number], Partial fill upon patient request if the prescription is for a... Start Date: 04/08/22 Stop Date: 05/02/22 Status: Ordered ProAir HFA 90 mcg/inh inhalation aerosol with adapter 2, puffs, Inhalation, 4 times a day, PRN, # 1 each, Refills 5, Tot. Refills 5, Maintenance, 10/17/21 15:25:00 EDT, Route to Pharmacy Electronically, [id number], [facility] #[id number], 151, cm, 09/29/21 13:12:00 EDT, Hei... Start Date: 10/17/21 Status: Ordered Sodium Chloride, Inhalation 0.9% inhalation solution 4 mL = 0.036 Gm, Neb, 2 times a day, use with 0.5% albuterol solution together in nebulizer, # 240 mL, 6 Refills, Maintenance, 06/12/21 19:39:00 EST, [facility] #[id number], Partial fill upon patient request if the [...] chart review meeting GFR criteria 5Admission to [facility] [place] for [place]. Cardiac MRI: LVEF 44%; 12/16/20 echo at [facility] [place]: LVEF=40-45% [id number] as lung mass. S/P R-CHOP x 6 cycles. Social History Social History Type Response Smoking Status Former smoker entered on: 09/06/14 Sex Patient Care team information Care Team Personnel Name: Francoise Black RN Position: [facility] RN Member Role: Primary Care Nurse Name: Chiqui Stoll RN Position: [facility] RN Member Role: Primary Care Nurse Name: Robert Feliz MD Position: [facility] Primary Care Physician Member Role: PCP Address: Address: [address] [place] [address]- Care Team Related Persons Name: RAMIRO MARR Address: home [address] [place] [id number]
--- OUTSIDE RECORDS SUMMARY | 2023-08-31 08:19 | XMS_ITS | Continuity of Care Document ---
Author Organization [facility] Zac lt Address [address] [place] [address]- Care Team Providers Care Flat Finisher Name Role Phone Tray BROWN, Robert Anthony Primary Care Physician [phone] Encounter [facility] [place] Date(s): 06/10/21 - 07/10/21 [facility] Adult [address] [place] [address]- Allergies, Adverse Reactions, Alerts Substance Reaction Severity [...] 3 Refills, Maintenance, 06/27/20 15:48:00 EST, Solution, [facility] #[id number], 151, cm, 02/05/20 7:35:00 EDT, Height Start [...] 5 Refills, Soft Stop, 05/06/21 17:27:00 EST, [facility] #[id number], 151, cm, 05/05/21 12:08:00 EST,Height Start Date: [...] Stop 08/02/21 9:58:00 EDT, 08/07/20 9:58:00 EDT, [facility] #[id number], J47.0 [facility]... Start Date: 08/07/20 Stop Date: 08/02/21 Status: Ordered Hyper-Don 7% inhalation solution 4 mL = 0.28 Gm, Neb, 2 times a day, take with 0.5ml = 2.5 mg albuterol (add hypersal 4ml to 0.5ml albuterol) twice a day, # 720 mL, 1 Refills, Maintenance, 08/02/21 9:58:00 EDT, [facility], J47.0 bronchiectasis, 4 mL Neb [...] 1, tablet, By Mouth, Daily, prescribed by [facility] doctor 12/18/20, # 90 tablet, Refills [...] Mouth, Daily, # 90 tablet, 0 Refills, [facility] #[id number], 151, cm, 12/27/20 8:19:00 EDT, Height Start [...] 01/10/21 13:45:00 EDT, Route to Pharmacy Electronically, [facility] #[id number], Partial fill upon patientrequest if the prescription is for a schedule II op... Start Date: 01/10/21 Status: Ordered ProAir HFA 90 mcg/inh inhalation aerosol with adapter 2, puffs, Inhalation, 4 times a day, PRN, # 1 each, Refills 6, Tot. Refills 6, Maintenance, 08/26/20 14:10:00 EDT, Route to Pharmacy Electronically, [id number], [facility] #[id number], 151, cm, 08/26/20 13:26:00 EDT, Height Start Date: 08/26/20 Status: Ordered rosuvastatin 5 mg oral tablet 1 tablet = 5 mg, By Mouth, Daily, # 30 tablet, 5 Refills, Maintenance, 04/08/21 9:24:00 EST, Tablet, [facility][id number], 151, cm, 03/07/21 9:27:00 EST, Height Start Date: 04/08/21 Stop Date: 10/05/21 Status: Ordered Sodium Chloride, Inhalation 0.9% inhalation solution 4 mL = 0.036 Gm, Neb, 2 times a day, use with 0.5% albuterol solution together in nebulizer, # 240 mL, 6 Refills, Maintenance, 06/12/21 19:39:00 EST, [facility] #[id number], Partial fill upon patient request if the [...]
--- OUTSIDE RECORDS SUMMARY | 2023-08-31 08:19 | XMS_ITS | Continuity of Care Document ---
Author Organization [facility] Address [address] [place] [address]- Care Team Providers Care Extended Insurance Clerk Name Role Phone Tray BROWN, Robert Anthony Primary Care Physician [place] [facility] [place]13[place]21 - 09/12/21 [facility] [address] [place] [id number] Allergies, Adverse Reactions, Alerts Substance Reaction [...] vaccine 9 06/20/12 Recorded 1Location History: [facility] 2Location History: [facility] 3Result Comment: [06/19/2016] [facility] 4Result Comment: [06/19/2016] [facility] 5Early/Late Reason: Other : 6Result Comment: [06/19/2016] [facility] 7Result Comment: [06/19/2016] [facility] 8Result Comment: [06/19/2016] [facility] 9Result Comment: [06/19/2016] [place] Medications albuterol 0.083% inhalation solution 3 mL, Inhalation, Every 6 hours, USE ACAPELLA DEVICE AFTER EVERY TREATMENT., # 360 mL, 0 Refills, [facility] #[id number], 151, cm, 06/11/21 13:48:00 EST, Height Start Date: 08/18/21 Status: Ordered albuterol 5 mg/mL (0.5%) inhalation solution 0.5 mL = 2.5 mg, Inhalation, Every 6 hours, PRN for wheezing, # 20 mL, 11 Refills, Maintenance, 08/26/21 14:10:00 EDT, Solution, [facility] #[id number], Partial fill upon patient request if the prescription is for a schedule II opioid drug., 151,... Start Date: 08/26/21 Status: Ordered amoxicillin 500 mg oral capsule 4 capsule = 2,000 mg, By Mouth, Once, take 4 capsules prior to dental procedure, # 4 capsule, 5 Refills, Soft Stop, 05/06/21 17:27:00 EST, [facility] #[id number], 151, cm, 05/05/21 12:08:00 EST,Height Start Date: [...] Replace Required Details, [facility], 151, cm, 05/05/21 12:08:00 EST, Height Start Date: 05/23/21 Status: Ordered Hyper-Don 7% inhalation solution 4 mL = 0.28 Gm, Neb, 2 times a day, take with 0.5ml = 2.5 mg albuterol (add hypersal 4ml to 0.5ml albuterol) twice a day J47.0, # 720 mL, 1 Refills, Maintenance, 07/28/22 9:58:00 EDT, [facility] #[id number], J47.0 bronchiectasis, 4 mL Neb 2 times... Start Date: 07/28/22 Status: Ordered Hyper-Don 7% inhalation solution 4 mL = 0.28 Gm, Neb, 2 times a day, take with 0.5ml = 2.5 mg albuterol (add hypersal 4ml to 0.5ml albuterol) twice a day, # 720 mL, 1 Refills, Hard Stop 07/28/22 9:58:00 EDT, 08/02/21 9:58:00 EDT, [facility], J47.0 bronchiectasis, 151, cm,... Start Date: 08/02/21 Stop Date: 07/28/22 Status: Ordered Imodium Capsule 2 mg, By Mouth, Every 4 hours, Refills 0, Maintenance, 05/05/21 12:12:00 EST, Partial fill upon patient request if the prescription is for a schedule II opioid drug. Start Date: 05/05/21 Status: Ordered Lasix 40 mg oral tablet 40 mg, 1, tablet, By Mouth, Daily, prescribed by [facility] doctor 12/18/20, # 90 tablet, Refills [...] 06/12/21 13:52:00 EST, Route to Pharmacy Electronically, [facility], 151, cm, 06/11/21 13:48:00 EST, Height Start Date: 06/12/21 Stop Date: 06/07/22 Status: Ordered meloxicam 7.5 mg oral tablet 1 tablet, By Mouth, Daily, # 90 tablet, 0 Refills, [facility] #[id number], 151, cm, 12/27/20 8:19:00 EDT, Height Start [...] 01/10/21 13:45:00 EDT, Route to Pharmacy Electronically, [facility] #[id number], Partial fill upon patientrequest if the prescription is for a schedule II op... Start Date: 01/10/21 Status: Ordered rosuvastatin 5 mg oral tablet 1 tablet = 5 mg, By Mouth, Daily, # 30 tablet, 5 Refills, Maintenance, 04/08/21 9:24:00 EST, Tablet, [facility] #[id number], 151, cm, 03/07/21 9:27:00 EST, Height Start Date: 04/08/21 Stop Date: 10/05/21 Status: Ordered Sodium Chloride, Inhalation 0.9% inhalation solution 4 mL = 0.036 Gm, Neb, 2 times a day, use with 0.5% albuterol solution together in nebulizer, # 240 mL, 6 Refills, Maintenance, 06/12/21 19:39:00 EST, [facility] #[id number], Partial fill upon patient request if the [...]
--- OUTSIDE RECORDS SUMMARY | 2023-08-31 08:19 | XMS_ITS | Continuity of Care Document ---
Author Organization [facility] Address [address] [place] [address]- Care Team Providers Care Char Conveyor Tender Cellar Name Role Phone Tray BROWN, Robert Anthony Primary Care Physician [place] [facility] [place]24/22 [facility] [address] [place] [id number]- [place] Allergies, Adverse Reactions, Alerts Substance Reaction Severity Status codeine Active tetanus toxoid Active sulfa drugs Active Immunizations Given and Recorded Vaccine Date Status Refusal Reason Influenza Virus Vaccine (oldterm) 1 02/03/22 Recor ded SARS-CoV-2 mRNA (zzlwbeh-dgue-ggidk) vax 08/06/21 Recorded SARS-CoV-2 (COVID-19) mRNA BNT-162b2 [...] 06/20/12 Recorde d 1Result Comment: influenza at [facility] [...] EVERY TREATMENT., # 360 mL, 5 Refills, [facility] #[id number], 151, cm, 09/29/21 13:12:00 EDT, Height, 61.69, kg, 09/29/21 13:11:00 EDT, Dry Weight Start Date: 11/13/21 Status: Ordered amoxicillin 500 mg oral capsule 4 capsule = 2,000 mg, By Mouth, Once, take 4 capsules prior to dental procedure, # 4 capsule, 5 Refills, Soft Stop, 03/09/22 6:10:00 EST, [facility] #[id number], 151, cm, 02/11/22 8:43:00 EDT, Height, 61.69, kg, 09/29/21 13:11:00 EDT, Dry Weight Start Date: 03/09/22 Status: Ordered Azithromycin 5 Day Dose Pack 250 mg oral tablet See Instructions, as directed on package labeling, # 6 tablet, 0 Refills, Maintenance, 04/08/22 10:23:00 EST, Tablet, [facility] #[id number], Partial fill upon patient request if the [...] Unknown, Refills 3, Route to Pharmacy Electronically, [facility], 151, cm, 09/29/21 13:12:00 EDT, Height, 61.69, kg, 09/29/21 13:11:00 EDT, Dry Weight Start Date: 11/05/21 Status: Ordered Hyper-Don 7% inhalation solution 4 mL = 0.28 Gm, Neb, 2 times a day, take with 0.5ml = 2.5 mg albuterol (add hypersal 4ml to 0.5ml albuterol) twice a day J47.0, # 720 mL, 1 Refills, Maintenance, 07/28/22 9:58:00 EDT, [facility] #00139, J47.0 bronchiectasis, 4 mL Neb 2 times... Start Date: 07/28/22 Status: Ordered Lasix 40 mg oral tablet 1, tablet, By Mouth, Daily, # 90 Unknown, Refills 3, Route to [facility] Electronically, [facility], 151, cm, 09/29/21 13:12:00 EDT, Height, 61.69, kg, 09/29/21 13:11:00 EDT, Dry Weight Start Date: 11/05/21 Status: Ordered losartan 25 mg oral tablet 12.5 mg, 0.5, tablet, By Mouth, Daily, Take 0.5 tablet (12.5mg) daily, # 45 tablet, Refills 3, Tot.Refills 3, Maintenance, 06/12/21 13:52:00 EST, Route to Pharmacy Electronically, [facility], 151, cm, 06/11/21 13:48:00 EST, [...] Acute 05/02/22 10:23:00 EST, 04/08/22 10:23:00 EST, [facility] #[id number], Partial fill upon patient request if the prescription is for a... Start Date: 04/08/22 Stop Date: 05/02/22 Status: Ordered ProAir HFA 90 mcg/inh inhalation aerosol with adapter 2, puffs, Inhalation, 4 times a day, PRN, # 1 each, Refills 5, Tot. Refills 5, Maintenance, 10/17/21 15:25:00 EDT, Route to Pharmacy Electronically, [id number], [facility] #[id number], 151, cm, 09/29/21 13:12:00 EDT, Hei... Start Date: 10/17/21 Status: Ordered Sodium Chloride, Inhalation 0.9% inhalation solution 4 mL = 0.036 Gm, Neb, 2 times a day, use with 0.5% albuterol solution together in nebulizer, # 240 mL, 6 Refills, Maintenance, 06/12/21 19:39:00 EST, [facility] #[id number], Partial fill upon patient request if the [...] chart review meeting GFR criteria 5[place] [facility] [place]. Cardiac MRI: LVEF 44%; 12/16/20 [place] [facility] [place] LVEF=40-45% [id number]-[id number] as lung mass. S/P R-CHOP x 6 cycles. Social History Social History Type Response Smoking Status Former smoker entered on: 09/06/14 Sex Patient Care team information Care Team Personnel Name: Francoise Black RN Position: [facility] RN Member Role: Primary Care Nurse Name: Chiqui Stoll RN Position: [facility] RN Member Role: Primary Care Nurse Name: Robert Feliz MD Position: [facility] Primary Care Physician Member Role: PCP Address: Address: [address] [place] [address]- Care Team Related Persons Name: RAMIRO MARR Address: home [address] [place] [id number]
--- OUTSIDE RECORDS SUMMARY | 2023-08-31 08:19 | XMS_ITS | Continuity of Care Document ---
Author Organization [facility] Address [address] [place] [address]- Care Team Providers Care Patient Day Coordinator Name Role Phone Robert Feliz MD Primary Care Physician [phone] Encounter [facility] Date(s): 02/11/22 - 06/06/22 [facility] [address] [place] [address]- Attending Physician: Karen ONEAL, Darling Alfonso Admitting Physician: Karen ONEAL, Darling Alfonso Referring Physician: Robert Feliz MD Allergies, Adverse Reactions, Alerts Substance Reaction Severity Status codeine Active Fish Active tetanus toxoid Active sulfa drugs Active Immunizations Given and Recorded Vaccine Date Status Refusal Reason Influenza Virus Vaccine (oldterm) 1 02/03/22 Recor ded SARS-CoV-2 mRNA (atirknk-kcrh-qgalf) vax 08/06/21 Recorded SARS-CoV-2 (COVID-19) mRNA BNT-162b2 [...] 06/20/12 Recorde d 1Result Comment: influenza at [facility] 2Location History: [facility] 3Location History: [facility] 4Result Comment: [06/19/2016] [facility] 5Result Comment: [06/19/2016] [facility] 6Early/Late Reason: Other : 7Result Comment: [06/19/2016] [facility] 8Result Comment: [06/19/2016] [facility] 9Result Comment: [06/19/2016] [facility] 10Result Comment: [06/19/2016] [facility] Medications albuterol 0.083% inhalation solution 3 mL, Inhalation, Every 6 hours, USE ACAPELLA DEVICE AFTER EVERY TREATMENT., # 360 mL, 5 Refills, [facility] #[id number], 151, cm, 09/29/21 13:12:00 EDT, Height, 61.69, [...] 10/17/21 15:25:00 EDT, Route to Pharmacy Electronically, [id number], [facility] #[id number], 151, cm, 09/29/21 13:12:00 EDT, Hei... Start Date: 10/17/21 Status: Ordered Sodium Chloride, Inhalation 0.9% inhalation solution See Instructions, USE 4 ML VIA NEBULIZER TWICE DAILY USE WITH 0.5% VIA INHALER SOLUTION TOGETHER INVIA NEBULIZER, # 300 mL, 0 Refills, Maintenance, 04/28/22 9:38:00 EST, [facility] #[id number],25, USE 4 ML VIA NEBULIZER TWICE DAILY [...] chart review meeting GFR criteria 5Ad[place] [facility] [place]. Cardiac MRI: LVEF 44%; 12/16/20 echo at [facility] [place]: LVEF=40-45% [id number]-Cnwyklcau as lung mass. S/P R-CHOP x 6 cycles. Social History Social History Type Response Smoking Status Former smoker entered on: 5/14/15 Sex Patient Care team information Care Team Personnel Name: Francoise Black RN Position: [facility] RN Member Role: Primary Care Nurse Name: Chiqui Stoll RN Position: [facility] RN Member Role: Primary Care Nurse Name: Robert Feliz MD Position: [facility] Primary Care Physician Member Role: PCP Address: Address: [address] [place] [address]- Care Team Related Persons Name: RAMIRO MARR Address: home [address] [place] [id number]
--- OUTSIDE RECORDS SUMMARY | 2023-08-31 08:19 | XMS_ITS | Continuity of Care Document ---
Author Organization [facility] Address [address] [place] [address] [address] [place] [address]- Care Team Providers Care Diamond Saw Operator Name Role Phone Tray BRONW, Robert Anthony Primary Care Physician Encounter [facility] Date(s): 12/22/22 - 01/21/23 [facility] [address] [place] [address]- Allergies, Adverse Reactions, Alerts Substance Reaction Severity Status codeine Active Fish Active tetanus toxoid Active sulfa drugs Active Immunizations Given and Recorded Vaccine Date Status Refusal Reason [id number] 12y+ bivalent booster vax 08/15/22 Recorded Influenza Virus Vaccine (oldterm) 1 02/03/22 Recor ded SARS-CoV-2 mRNA (ouoookm-hnmm-arabw) vax 08/06/21 Recorded SARS-CoV-2 (COVID-19) mRNA BNT-162b2 [...] 06/20/12 Bulmaroe monica 1Result Comment: influenza at [facility] 2Location History: [facility] 3Location History: [facility] 4Result Comment: [06/19/2016] [place] 5Result Comment: [06/19/2016] [facility] 6Early/Late Reason: Other : 7Result Comment: [06/19/2016] [place] 8Result Comment: [06/19/2016] [place] 9Result Comment: [06/19/2016] [place] 10Result Comment: [06/19/2016] [place] Medications albuterol 0.083% inhalation solution 3 mL, Inhalation, Every 6 hours, USE ACAPELLA DEVICE AFTER EVERY TREATMENT. J44.9, # 360 mL, 5 Refills, 01/18/23 8:59:00 EDT, [facility] #[id number], J44.9, 150, cm, 01/11/23 10:59:00 EDT, Height, 61, kg, 04/17/22 11:31:00 EST, Dry Weight Start Date: 01/18/23 Status: Ordered bisoprolol 5 mg oral tablet See Instructions, TAKE 1/2 TABLET DAILY, # 45 tablet, 1 Refills, Maintenance, 09/04/22 16:11:00 EDT, [facility], 150, cm, 08/28/22 9:37:00 EDT, Height, 61, kg, 04/17/22 11:31:00 EST, Dry Weight Start Date: 09/04/22 Status: Ordered clopidogrel 75 mg oral tablet 1, tablet, By Mouth, Daily, # 90 Unknown, Refills 0, Tot. Refills 0, Maintenance, 10/19/22 15:23:00EDT, Route to Pharmacy Electronically, [facility], 150, cm, 08/28/22 9:37:00 EDT, Height, 61, kg, 04/17/22 11:31:00 EST, Dry Weight Start Date: 10/19/22 Status: Ordered Lasix 40 mg oral tablet 1, tablet, By Mouth, Daily, # 90 Unknown, Refills 3, Route to Pharmacy Electronically, [facility], 151, cm, 09/29/21 13:12:00 EDT, Height, 61.69, kg, 09/29/21 13:11:00 EDT, Dry Weight Start Date: 11/05/21 Status: Ordered losartan 25 mg oral tablet See Instructions, TAKE 1/2 TABLET DAILY, # 45 tablet, 1 Refills, Maintenance, 09/04/22 16:13:00 EDT, [facility], 150, cm, 08/28/22 9:37:00 EDT, [...] 12/22/22 10:35:00 EDT, Route to Pharmacy Electronically, [facility][id number], Partial fill upon patient req... Start Date: 12/22/22 Status: Ordered ProAir HFA 90 mcg/inh inhalation aerosol with adapter 2, puffs, Inhalation, 4 times a day, PRN, # 1 each, Refills 5, Tot. Refills 5, Maintenance, 10/17/21 15:25:00 EDT, Route to Pharmacy Electronically, [id number], [id number], 151, cm, 09/29/21 13:12:00 EDT, Hei... Start [...] mL, 0 Refills, Maintenance, 11/27/22 15:51:00 EDT, [facility] #[id number], 12, USE 4 ML VIA NEBULIZER TWICE DAILY USE WITH 0.... Start Date: 11/27/22 Status: Ordered Trelegy Ellipta 200 mcg-62.5 mcg-25 mcg/inh inhalation powder 1 puffs, Inhalation, Daily, at the same time every day, j44.9, # 1 each, 6 Refills, Maintenance, 10/14/22 11:12:00 EDT, Powder, [facility] #[id number], Partial fill upon patient request if the [...] chart review meeting GFR criteria 6Admission to [facility] for CHF 11/2020. Cardiac MRI: LVEF 44%; 12/16/[address] [facility]: LVEF=40-45% 8Per CT w/contrast 12/19/2021: Irregular partially calcified tissue along the distal left main pulmonary artery extending along the regular small caliber left lower lobe pulmonary artery branch probably reflecting chronic thrombus.. [id number]-[id number] as lung mass. S/P R-CHOP x 6 cycles. Social History Social History Type Response Smoking Status Former smoker entered on: 09/06/14 Sex Patient Care team information Care Team Personnel Name: Manuel Mayes MD Position: [facility] Physician - Pulm/Critical Care Member Role: Type Casting Machine Operator Address: Address: [address] [place] [address] [address] [facility] [place] [address]- Name: Kenneth Chowdary MD Position: [facility] Cardiology MD Member Role: Guide Rail Cleaner Address: Address: [address] [place] [address] [address] [facility] [place] [address]- [place] Name: Robert Feliz MD Position: [facility] Physician - Primary Care Member Role: PCP Address: Address: [address] [place] [address]- [place] Name: Georgette Silva Position: [facility] [place] Medical Practitioners Member Role: Printer Floor Covering Assistant Name: Epi Turner Member Role: Neurologist Name: Mariposa BROWN, Zi Méndez Position: Reference Physician Member Role: Sales Store Checker Address: Address: [address] [place] [address] [address] [facility] [place] [address]- [place] Care Team Related Persons Name: RAMIRO MARR Address: home [address] [place] [id number]
--- OUTSIDE RECORDS SUMMARY | 2023-08-31 08:19 | XMS_ITS | Continuity of Care Document ---
Author Organization [facility] Address [address] [place] [address]- Care Team Providers Care Window Caser Name Role Phone Tray BROWN, Robert Anthony Primary Care Physician Encounter [facility] Date(s): 04/07/23 - 05/07/[address] [address]- Attending Physician: Adithya Sheth Admitting Physician: AdmAdithya [...] virus vaccine, inactivated 6 02/09/12 Re corded [id number] 12y+ bivalent booster vax 08/15/22 Recorded Influenza Virus Vaccine (oldterm) 7 02/03/22 Recor ded SARS-CoV-2 mRNA (apfxkwz-hams-clnry) vax 08/06/21 Recorded SARS-CoV-2 (COVID-19) mRNA BNT-162b2 vac 01/27/21 Recorded SARS-CoV-2 (COVID-19) mRNA BNT-162b2 vac 06/24/20 Given SARS-CoV-2 (COVID-19) mRNA BNT-162b2 vac 06/03/20 Recorded pneumococcal 13-valent vaccine 8 07/29/15 Recorded pneumococcal 13-valent vaccine 9 08/31/12 Recorded Zoster Vaccine Live 08/31/12 Recorded pneumococcal 23-valent vaccine 10 06/20/12 Recorde d 1Location History: [facility]Location History: [facility] 3Result Comment: [06/19/2016] [place] 4Result Comment: [06/19/2016] [facility] 5Early/Late Reason: Other : 6Result Comment: [06/19/2016] [place] 7Result Comment: influenza at [facility] 8Result Comment: [06/19/2016] [facility] 9Result Comment: [06/19/2016] [facility] 10Result Comment: [06/19/2016] [place] Medications albuterol 0.083% inhalation solution 3 mL, Inhalation, Every 6 hours, USE ACAPELLA DEVICE AFTER EVERY TREATMENT. J44.9, # 360 mL, 5 Refills, 01/18/23 8:59:00 EDT, [facility] #[id number], J44.9, 150, cm, 01/11/23 10:59:00 EDT, Height, 61, kg, 04/17/22 11:31:00 EST, Dry Weight Start Date: 01/18/23 Status: Ordered bisoprolol 5 mg oral tablet See Instructions, TAKE 1/2 TABLET DAILY, # 45 Unknown, 0 Refills, Maintenance, 02/22/23 7:49:00 EDT, [facility], 150, cm, 01/11/23 10:59:00 EDT, Height, 61, kg, 04/17/22 11:31:00 EST, Dry Weight Start Date: 02/22/23 Status: Ordered clopidogrel 75 mg oral tablet See Instructions, TAKE 1 TABLET DAILY, # 90 Unknown, Refills 0, Maintenance, 02/22/23 7:49:00 EDT, Instructions Replace Required Details, Route to Pharmacy Electronically, [facility], 150, cm, 01/11/23 10:59:00 EDT, Height, 61, kg, 12/23/22... Start Date: 02/22/23 Status: Ordered Lasix 40 [...] 10/17/21 15:25:00 EDT, Route to Pharmacy Electronically, [id number], [id number], 151, cm, 09/29/21 13:12:00 EDT, Hei... Start [...] mL, 5 Refills, Maintenance, 02/11/23 9:46:00 EDT, [id number], USE 4 ML VIANEBULIZER TWICE DAILY USE [...] chart review meeting GFR criteria 6Admission to [facility] for CHF 11/2020. Cardiac MRI: LVEF 44%; 12/16/20 echo at [facility]: LVEF=40-45% 8Per CT w/contrast 12/19/2021: Irregular partially calcified tissue along the distal left main pulmonary artery extending along the regular small caliber left lower lobe pulmonary artery branch probably reflecting chronic thrombus.. 38730-Pfghkjbli as lung mass. S/P R-CHOP x 6 cycles. Social History Social History Type Response Smoking Status Former smoker entered on: 09/06/14 Sex Patient Care team information Care Team Personnel Name: Manuel Mayes MD Position: [facility] Physician - Pulm/Critical Care Member Role: Instructor Wastewater Treatment Plant Address: Address: [address] [place] [address] [address] [facility] [place] [address]- [place] Name: Kenneth Chowdary MD Position: [facility] Cardiology MD Member Role: Octave Board Racker Address: Address: [address] [place] [address] [address] [facility] [place] [address]- Name: Robert Feliz MD Position: [facility] Physician - Primary Care Member Role: PCP Address: Address: [address] [place] [address]- [place] Name: Georgette Silva Position: [facility] Moving Van Driver Member Role: Mechanical Detailer Name: Epi Turner Member Role: Neurologist Name: Mariposa BROWN, Zi Méndez Position: Reference Physician Member Role: Scientific Informatics Project Leader Address: Address: [address] [place] [address] [address] [facility] [place] [address]- [place] Care Team Related Persons Name: RAMIRO MARR Address: home [address] [place] [address]
--- OUTSIDE RECORDS SUMMARY | 2023-08-31 08:19 | XMS_ITS | Continuity of Care Document ---
Author Organization [facility] Address [address] [place] [address]- Care Team Providers Care Powertrain Control Systems Engineer Name Role Phone Tray BROWN, Robert Anthony Primary Care Physician [phone] Encounter [facility] Date(s): 12/16/21 - 01/15/22 [facility] [address] [place] [address]- Allergies, Adverse Reactions, Alerts Substance Reaction Severity Status codeine Active tetanus toxoid Active sulfa drugs Active Immunizations Given and Recorded Vaccine Date Status Refusal Reason SARS-CoV-2 mRNA (wvqrnwv-fzvq-ktdjk) vax 08/06/21 Recorded SARS-CoV-2 (COVID-19) mRNA BNT-162b2 [...] vaccine 9 06/20/12 Recorded 1Location History: [facility] 2Location History: [facility] 3Result Comment: [06/19/2016] [place] 4Result Comment: [06/19/2016] [facility] 5Early/Late Reason: Other : 6Result Comment: [06/19/2016] [place] 7Result Comment: [06/19/2016] [facility] 8Result Comment: [06/19/2016] [facility] 9Result Comment: [06/19/2016] [place] Medications albuterol 0.083% inhalation solution 3 mL, Inhalation, Every 6 hours, USE ACAPELLA DEVICE AFTER EVERY TREATMENT., # 360 mL, 5 Refills, [facility] #[id number], 151, cm, 09/29/21 13:12:00 EDT, Height, 61.69, [...] Unknown, Refills 3, Route to Pharmacy Electronically, [facility], 151, cm, 09/29/21 13:12:00 EDT, Height, 61.69, kg, 09/29/21 13:11:00 EDT, Dry Weight Start Date: 11/05/21 Status: Ordered Hyper-Don 7% inhalation solution 4 mL = 0.28 Gm, Neb, 2 times a day, take with 0.5ml = 2.5 mg albuterol (add hypersal 4ml to 0.5ml albuterol) twice a day J47.0, # 720 mL, 1 Refills, Maintenance, 07/28/22 9:58:00 EDT, [facility] #55626, J47.0 bronchiectasis, 4 mL Neb 2 times... Start Date: 07/28/22 Status: Ordered Lasix 40 mg oral tablet 1, tablet, By Mouth, Daily, # 90 Unknown, Refills 3, [facility], [facility], 151, cm, 09/29/21 13:12:00 EDT, Height, 61.69, kg, 09/29/21 13:11:00 EDT, Dry Weight Start Date: 11/05/21 Status: Ordered losartan 25 mg oral tablet 12.5 mg, 0.5, tablet, By Mouth, Daily, Take 0.5 tablet (12.5mg) daily, # 45 tablet, Refills 3, Tot.Refills 3, Maintenance, 06/12/21 13:52:00 EST, Route to Pharmacy Electronically, [facility], 151, cm, 06/11/21 13:48:00 EST, Height [...] 10/17/21 15:25:00 EDT, Route to Pharmacy Electronically, [id number], [facility] #[id number], 151, cm, 09/29/21 13:12:00 EDT, Hei... Start Date: 10/17/21 Status: Ordered Sodium Chloride, Inhalation 0.9% inhalation solution 4 mL = 0.036 Gm, Neb, 2 times a day, use with 0.5% albuterol solution together in nebulizer, # 240 mL, 6 Refills, Maintenance, 06/12/21 19:39:00 EST, [facility] #[id number], Partial fill upon patient request if the [...] 1-49% stenosis; LICA 1-49% stenosis 4Admission to [facility] for CHF 11/2020. Cardiac MRI: LVEF 44%; 12/16/20 echo at [facility]: LVEF=40-45% [id number]-Gbfwsovvp as lung mass. S/P R-CHOP x 6 cycles. Social History Social History Type Response Smoking Status Former smoker entered on: 09/06/14 Sex Care Team Personnel Name: Robert Feliz MD Address: [address] [place] [address] [place] [address]-
--- OUTSIDE RECORDS SUMMARY | 2023-08-31 08:20 | XMS_ITS | Continuity of Care Document ---
Author Organization [facility] Z[facility] Address [address] [place] [address]- Care Team Providers Care School Bus Dispatcher Name Role Phone Tray BROWN, Robert Anthony Primary Care Physician [phone] [facility] Date(s): 11/14/21 - 12/14/21 [facility] [address] [place] [address]- Allergies, Adverse Reactions, Alerts Substance Reaction Severity Status codeine Active tetanus toxoid Active sulfa drugs Active Immunizations Given and Recorded Vaccine Date Status Refusal Reason SARS-CoV-2 mRNA (uvzzvqp-wsdt-evtzl) vax 08/06/21 Recorded SARS-CoV-2 (COVID-19) mRNA BNT-162b2 [...] EVERY TREATMENT., # 360 mL, 5 Refills, [facility] #[id number], 151, cm, 09/29/21 13:12:00 EDT, Height, 61.69, kg, 09/29/21 13:11:00 EDT, Dry Weight Start Date: 11/13/21 Status: Ordered albuterol 0.083% inhalation solution 3 mL, Inhalation, Every 6 hours, USE ACAPELLA DEVICE AFTER EVERY TREATMENT., # 360 mL, 0 Refills, [facility] #[id number], 151, cm, 06/11/21 13:48:00 EST, Height Start Date: 08/18/21 Status: Ordered albuterol 5 mg/mL (0.5%) inhalation solution 0.5 mL = 2.5 mg, Inhalation, Every 6 hours, PRN for wheezing, # 20 mL, 11 Refills, Maintenance, 08/26/21 14:10:00 EDT, Solution, [facility] #[id number], Partial fill upon patient request if the prescription is for a schedule II opioid drug., 151,... Start Date: 08/26/21 Status: Ordered amoxicillin 500 mg oral capsule 4 capsule = 2,000 mg, By Mouth, Once, take 4 capsules prior to dental procedure, # 4 capsule, 5 Refills, Soft Stop, 05/06/21 17:27:00 EST, [facility] #[id number], 151, cm, 05/05/21 12:08:00 EST,Height Start Date: [...] 3 Refills, Maintenance, 06/12/21 13:52:00 EST, Tablet, [facility], 151, cm, 06/11/21 13:48:00 EST, Height Start Date: 06/12/21 Stop Date: 06/07/22 Status: Ordered clopidogrel 75 mg oral tablet 1, tablet, By Mouth, Daily, # 90 Unknown, Refills 3, Route to Pharmacy Electronically, [facility], 151, cm, 09/29/21 13:12:00 EDT, Height, 61.69, kg, 09/29/21 13:11:00 EDT, Dry Weight Start Date: 11/05/21 Status: Ordered Hyper-Don 7% inhalation solution 4 mL = 0.28 Gm, Neb, 2 times a day, take with 0.5ml = 2.5 mg albuterol (add hypersal 4ml to 0.5ml albuterol) twice a day J47.0, # 720 mL, 1 Refills, Maintenance, 07/28/22 9:58:00 EDT, [facility] #[id number], J47.0 bronchiectasis, 4 mL Neb 2 times... Start Date: 07/28/22 Status: Ordered Hyper-Don 7% inhalation solution 4 mL = 0.28 Gm, Neb, 2 times a day, take with 0.5ml = 2.5 mg albuterol (add hypersal 4ml to 0.5ml albuterol) twice a day, # 720 mL, 1 Refills, Hard Stop 07/28/22 9:58:00 EDT, 08/02/21 9:58:00 EDT, [facility], J47.0 bronchiectasis, 151, cm,... Start [...] Unknown, Refills 3, Route to Pharmacy Electronically, [email or web address], 151, cm, 09/29/21 13:12:00 EDT, Height, 61.69, kg, 09/29/21 13:11:00 EDT, Dry Weight Start Date: 11/05/21 Status: Ordered losartan 25 mg oral tablet 12.5 mg, 0.5, tablet, By Mouth, Daily, Take 0.5 tablet (12.5mg) daily, # 45 tablet, Refills 3, Tot.Refills 3, Maintenance, 06/12/21 13:52:00 EST, Route to Pharmacy Electronically, [facility], 151, cm, 06/11/21 13:48:00 EST, Height [...] 10/17/21 15:25:00 EDT, Route to Pharmacy Electronically, [id number], [facility] #[id number], 151, cm, 09/29/21 13:12:00 EDT, Hei... Start Date: 10/17/21 Status: Ordered Sodium Chloride, Inhalation 0.9% inhalation solution 4 mL = 0.036 Gm, Neb, 2 times a day, use with 0.5% albuterol solution together in nebulizer, # 240 mL, 6 Refills, Maintenance, 06/12/21 19:39:00 EST, [facility] #[id number], Partial fill upon patient request if the [...] 1-49% stenosis; LICA 1-49% stenosis 4Admission to [facility] for CHF 11/2020. Cardiac MRI: LVEF 44%; 12/16/20 echo at [facility]: LVEF=40-45% 34500-Htfcmqsuh as lung mass. S/P R-CHOP x 6 cycles. Social History Social History Type Response Smoking Status Former smoker entered on: 09/06/14 Sex
--- OUTSIDE RECORDS SUMMARY | 2023-08-31 08:20 | XMS_ITS | Continuity of Care Document ---
Author Organization [facility] Address [address] [place] [address]- Care Team Providers Care Accountant Helper Name Role Phone Tray BROWN, Robert Anthony Primary Care Physician Encounter [facility] Date(s): 05/26/21 - 06/25/21 [facility] [address] [place] [address] Allergies, Adverse Reactions, Alerts Substance Reaction [...] vaccine 9 06/20/12 Recorded 1Location History: [facility] 2Location History: [facility] 3Result Comment: [06/19/2016] [place] 4Result Comment: [06/19/2016] [facility] 5Early/Late Reason: Other : 6Result Comment: [06/19/2016] [place] 7Result Comment: [06/19/2016] [facility] 8Result Comment: [06/19/2016] [facility] 9Result Comment: [06/19/2016] [place] Medications albuterol 0.083% inhalation solution 3 mL = 2.5 mg, Inhalation, Every 6 hours, use Acapella device after every treatment, # 120 each, 3 Refills, Maintenance, 06/27/20 15:48:00 EST, Solution, [facility][id number], 151, cm, 02/05/20 7:35:00 EDT, Height Start [...] 5 Refills, Soft Stop, 05/06/21 17:27:00 EST, [facility] #[id number], 151, cm, 05/05/21 12:08:00 EST,Height Start Date: [...] Stop 08/02/21 9:58:00 EDT, 08/07/20 9:58:00 EDT, [facility] #[id number], J47.0 [facility]... Start Date: 08/07/20 Stop Date: 08/02/21 Status: Ordered Hyper-Don 7% inhalation solution 4 mL = 0.28 Gm, Neb, 2 times a day, take with 0.5ml = 2.5 mg albuterol (add hypersal 4ml to 0.5ml albuterol) twice a day, # 720 mL, 1 Refills, Maintenance, 08/02/21 9:58:00 EDT, [facility], J47.0 bronchiectasis, 4 mL Neb [...] [facility] 12[facility]18[facility], # 90 tablet, Refills [...] Mouth, Daily, # 90 tablet, 0 Refills, [facility] #[id number], 151, cm, 12/27/20 8:19:00 EDT, Height Start [...] 01/10/21 13:45:00 EDT, Route to Pharmacy Electronically, [facility] #[id number], Partial fill upon patientrequest if the prescription is for a schedule II op... Start Date: 01/10/21 Status: Ordered ProAir HFA 90 mcg/inh inhalation aerosol with adapter 2, puffs, Inhalation, 4 times a day, PRN, # 1 each, Refills 6, Tot. Refills 6, Maintenance, 08/26/20 14:10:00 EDT, Route to Pharmacy Electronically, [id number], [facility] #[id number], 151, cm, 08/26/20 13:26:00 EDT, Height Start Date: 08/26/20 Status: Ordered rosuvastatin 5 mg oral tablet 1 tablet = 5 mg, By Mouth, Daily, # 30 tablet, 5 Refills, Maintenance, 04/08/21 9:24:00 EST, Tablet, [facility] #[id number], 151, cm, 03/07/21 9:27:00 EST, Height Start Date: 04/08/21 Stop Date: 10/05/21 Status: Ordered Sodium Chloride, Inhalation 0.9% inhalation solution 4 mL = 0.036 Gm, Neb, 2 times a day, use with 0.5% albuterol solution together in nebulizer, # 240 mL, 6 Refills, Maintenance, 06/12/21 19:39:00 EST, [facility] #[id number], Partial fill upon patient request if the [...] Stop07/04/21 9:31:00 EST, 12/06/20 9:31:00 EDT, Powder, [facility] #[id number], Partial fill upon patient request if the [...]
--- OUTSIDE RECORDS SUMMARY | 2023-08-31 08:20 | XMS_ITS | Continuity of Care Document ---
Author Organization [facility] Pulmonary M edicine Address [address] [address]- Care Team Providers Care Lotus Notes Administrator Name Role Phone Tray BROWN, Robert Anthony Primary Care Physician Encounter [facility] [place] Date(s): 03/01/23 - 03/31/23 [facility] Medicine [address] [address]- Allergies, Adverse Reactions, Alerts Substance Reaction Severity Status codeine Active tetanus toxoid Active sulfa drugs Active Fish Active Immunizations Given and Recorded Vaccine Date Status Refusal Reason [id number] 12y+ bivalent booster vax 08/15/22 Recorded Influenza Virus Vaccine (oldterm) 1 02/03/22 Recor ded SARS-CoV-2 mRNA (ojrequi-qcep-gpxsi) vax 08/06/21 Recorded SARS-CoV-2 (COVID-19) mRNA BNT-162b2 [...] Bulmaroe monica 1Result Comment: influenza at [facility] 2Location History: [facility] [...] 360 mL, 5 Refills, 01/18/23 8:59:00 EDT, [facility] #[id number], J44.9, 150, cm, 01/11/23 10:59:00 EDT, Height, 61, kg, 04/17/22 11:31:00 EST, Dry Weight Start Date: 01/18/23 Status: Ordered bisoprolol 5 mg oral tablet See Instructions, TAKE 1/2 TABLET DAILY, # 45 Unknown, 0 Refills, Maintenance, 02/22/23 7:49:00 EDT, [facility], 150, cm, 01/11/23 10:59:00 EDT, Height, 61, kg, 04/17/22 11:31:00 EST, Dry Weight Start Date: 02/22/23 Status: Ordered clopidogrel 75 mg oral tablet See Instructions, TAKE 1 TABLET DAILY, # 90 Unknown, Refills 0, Maintenance, 02/22/23 7:49:00 EDT, Instructions Replace Required Details, Route to Pharmacy Electronically, [facility], 150, cm, 01/11/23 10:59:00 EDT, Height, [...] 10/17/21 15:25:00 EDT, Route to Pharmacy Electronically, [id number], [facility] #[id number], 151, cm, 09/29/21 13:12:00 EDT, Hei... Start [...] mL, 5 Refills, Maintenance, 02/11/23 9:46:00 EDT, [facility] #[id number], USE 4 ML VIANEBULIZER TWICE DAILY USE [...] review meeting GFR criteria 6Admission to [facility] for CHF 11/2020. Cardiac MRI: LVEF 44%; 12/16/20 echo at [facility]: LVEF=40-45% 8Per CT w/contrast 12/19/2021: Irregular partially calcified tissue along the distal left main pulmonary artery extending along the regular small caliber left lower lobe pulmonary artery branch probably reflecting chronic thrombus.. 29629-Xfcdxtbge as lung mass. S/P R-CHOP x 6 cycles. Social History Social History Type Response Smoking Status Former smoker entered on: 09/06/14 Sex Patient Care team information Care Team Personnel Name: Manuel Mayes MD Position: [facility] Physician - Pulm/Critical Care Member Role: Predatory Game Hunter Address: Address: [address] [place] [address] [address] [place] [address]- Name: Kenneth Chowdary MD Position: [facility] Cardiology MD Member Role: Fisher Diver Net Address: Address: [address] [place] [address] [address] [place] [address]- [place] Name: Robert Feliz MD Position: [facility] Physician - Primary Care Member Role: PCP Address: Address: [address] [place] [address]- [place] Name: Georgette Silva Position: [facility] Software Test Manager Member Role: Founder And Chief Executive Officer Name: Epi Turner Member Role: Neurologist Name: Mariposa BROWN, Zi Méndez Position: Reference Physician Member Role: County Sheriff Address: Address: [address] [place] [address] [address] [facility] [place] [place] [address]- [place] Care Team Related Persons Name: RAMIRO MARR Address: home [address] [place] [address]
--- OUTSIDE RECORDS SUMMARY | 2023-08-31 08:20 | XMS_ITS | Continuity of Care Document ---
Author Organization [facility] Address [address] [place] [address]- Care Team Providers Care Forest Fire Fighters Dispatcher Name Role Phone Tray BROWN, Robert Anthony Primary Care Physician [place] [facility] - 08/05/[address] [address] Allergies, Adverse Reactions, Alerts Substance Reaction [...] virus vaccine, inactivated 6 02/09/12 Re corded [id number] 12y+ bivalent booster vax 08/15/22 Recorded Influenza Virus Vaccine (oldterm) 7 02/03/22 Recor ded SARS-CoV-2 mRNA (tfqlofo-stso-cdcjs) vax 08/06/21 Recorded SARS-CoV-2 (COVID-19) mRNA BNT-162b2 [...] Comment: [06/19/2016] [facility] 7Result Comment: influenza at [facility] 8Result Comment: [06/19/2016] [facility] 9Result Comment: [06/19/2016] [facility] 10Result Comment: [06/19/2016] [facility] Medications albuterol 0.083% inhalation solution 3 mL, Inhalation, Every 6 hours, USE ACAPELLA DEVICE AFTER EVERY TREATMENT. J44.9, # 360 mL, 5 Refills, 01/18/23 8:59:00 EDT, [facility] #[id number], J44.9, 150, cm, 01/11/23 10:59:00 EDT, Height, 61, kg, 04/17/22 11:31:00 EST, Dry Weight Start Date: 01/18/23 Status: Ordered bisoprolol 5 mg oral tablet See Instructions, TAKE 1/2 TABLET DAILY, # 45 Unknown, 0 Refills, Maintenance, 02/22/23 7:49:00 EDT, [facility], 150, cm, 01/11/23 10:59:00 EDT, Height, 61, kg, 04/17/22 11:31:00 EST, Dry Weight Start Date: 02/22/23 Status: Ordered clopidogrel 75 mg oral tablet See Instructions, TAKE 1 TABLET DAILY, # 90 Unknown, Refills 0, Maintenance, 02/22/23 7:49:00 EDT, Instructions Replace Required Details, Route to Pharmacy Electronically, [facility], 150, cm, 01/11/23 10:59:00 EDT, Height, 61, [...] Refills, Soft Stop, 07/19/23 9:46:00 EDT, Patch, [facility]/pharmacy #[id number], Partial fill upon patient request [...] 10/17/21 15:25:00 EDT, Route to Pharmacy Electronically, [id number], [facility] #[id number], 151, cm, 09/29/21 13:12:00 EDT, Hei... Start [...] mL, 5 Refills, Maintenance, 02/11/23 9:46:00 EDT, [facility] #[id number], USE 4 ML VIANEBULIZER TWICE DAILY USE WITH 0.5% TOGETHER IN VIA... Start Date: 02/11/23 Status: Ordered traMADol 50 mg oral tablet 1 tablet = 50 mg, By Mouth, Every 12 hours, PRN for pain, # 30 tablet, 5 Refills, Acute 01/06/24 10:48:00 EDT, 07/06/23 10:47:00 EDT, Tablet, [facility]/pharmacy #[id number], Partial fill upon patient request [...] chart review meeting GFR criteria 6Admission to [facility] for CHF 11/2020. Cardiac MRI: LVEF 44%; 12/16/20 echo at [facility]: LVEF=40-45% 8Per CT w/contrast 12/19/2021: Irregular partially calcified tissue along the distal left main pulmonary artery extending along the regular small caliber left lower lobe pulmonary artery branch probably reflecting chronic thrombus.. 54955-Uxjlirqam as lung mass. S/P R-CHOP x 6 cycles. Social History Social History Type Response Smoking Status Former smoker entered on: 09/06/14 Sex Patient Care team information Care Team Personnel Name: Manuel Mayes MD Position: [facility] Physician - Pulm/Critical Care Member Role: Reinforcing Steel Worker Wire Mesh Address: Address: [address] [place] [address] [address] [facility] [place] [address]- Name: Kenneth Chowdary MD Position: [facility] Cardiology MD Member Role: Data Analytics Chief Scientist Address: Address: [address] [place] [address] [address] [facility] [address]- Name: Robert Feliz MD Position: [facility] Physician - Primary Care Member Role: PCP Address: Address: [address] [place] [address]- [place] Name: Georgette Silva Position: [facility] [place] Cheese Grader Member Role: Box Stapler Name: Epi Turner Member Role: Neurologist Name: Mariposa BROWN, Zi Méndez Position: Reference Physician Member Role: Data Analytics Developer Address: Address: [address] [place] [address] [address] [facility] [place] [address]- [place] Care Team Related Persons Name: RAMIRO MARR Address: home [address] [place] [address]
--- OUTSIDE RECORDS SUMMARY | 2023-08-31 08:20 | XMS_ITS | Continuity of Care Document ---
Author Organization [facility] Pulmonary M edicine Address [address] [place] [address]- Care Team Providers Care Clinical Informatics Spec Name Role Phone Tray BROWN, Robert Anthony Primary Care Physician [phone] [place] [facility]/25[place]21 - 09/24/21 [facility] Pulmonary Medicine [address] [place] [id number] Allergies, Adverse Reactions, Alerts Substance [...] vaccine 9 06/20/12 Recorded 1Location History: [facility] 2Location History: [facility] 3Result Comment: [06/19/2016] [facility] 4Result Comment: [06/19/2016] [facility] 5Early/Late Reason: Other : 6Result Comment: [06/19/2016] [facility] 7Result Comment: [06/19/2016] [facility] 8Result Comment: [06/19/2016] [facility] 9Result Comment: [06/19/2016] [facility] Medications albuterol 0.083% inhalation solution 3 mL, Inhalation, Every 6 hours, USE ACAPELLA DEVICE AFTER EVERY TREATMENT., # 360 mL, 0 Refills, [facility] #[id number], 151, cm, 06/11/21 13:48:00 EST, Height Start Date: 08/18/21 Status: Ordered albuterol 5 mg/mL (0.5%) inhalation solution 0.5 mL = 2.5 mg, Inhalation, Every 6 hours, PRN for wheezing, # 20 mL, 11 Refills, Maintenance, 08/26/21 14:10:00 EDT, Solution, [facility] #[id number], Partial fill upon patient request if the prescription is for a schedule II opioid drug., 151,... Start Date: 08/26/21 Status: Ordered amoxicillin 500 mg oral capsule 4 capsule = 2,000 mg, By Mouth, Once, take 4 capsules prior to dental procedure, # 4 capsule, 5 Refills, Soft Stop, 05/06/21 17:27:00 EST, [facility] #[id number], 151, cm, 05/05/21 12:08:00 EST,Height Start Date: [...] mL, 1 Refills, Maintenance, 07/28/22 9:58:00 EDT, [facility] #[id number], J47.0 bronchiectasis, 4 mL Neb 2 times... Start Date: 07/28/22 Status: Ordered Hyper-Don 7% inhalation solution 4 mL = 0.28 Gm, Neb, 2 times a day, take with 0.5ml = 2.5 mg albuterol (add hypersal 4ml to 0.5ml albuterol) twice a day, # 720 mL, 1 Refills, Hard Stop 07/28/22 9:58:00 EDT, 08/02/21 9:58:00 EDT, [facility], J47.0 bronchiectasis, 151, cm,... Start [...] [facility] [place] [place] doctor 12/18/20, # 90 tablet, Refills [...] 06/12/21 13:52:00 EST, [facility], 151, cm, 06/11/21 13:48:00 EST, Height Start Date: 06/12/21 Stop Date: 06/07/22 Status: Ordered meloxicam 7.5 mg oral tablet 1 tablet, By Mouth, Daily, # 90 tablet, 0 Refills, [facility] #[id number], 151, cm, 12/27/20 8:19:00 EDT, Height Start [...] 01/10/21 13:45:00 EDT, Route to Pharmacy Electronically, [facility] #[id number], Partial fill upon patientrequest if the prescription is for a schedule II op... Start Date: 01/10/21 Status: Ordered rosuvastatin 5 mg oral tablet 1 tablet = 5 mg, By Mouth, Daily, # 30 tablet, 5 Refills, Maintenance, 04/08/21 9:24:00 EST, Tablet, [facility] #[id number], 151, cm, 03/07/21 9:27:00 EST, Height Start Date: 04/08/21 Stop Date: 10/05/21 Status: Ordered Sodium Chloride, Inhalation 0.9% inhalation solution 4 mL = 0.036 Gm, Neb, 2 times a day, use with 0.5% albuterol solution together in nebulizer, # 240 mL, 6 Refills, Maintenance, 06/12/21 19:39:00 EST, [facility] #[id number], Partial fill upon patient request if the [...]
--- OUTSIDE RECORDS SUMMARY | 2023-08-31 08:20 | XMS_ITS | Continuity of Care Document ---
Author Organization [facility] Address [address] [place] [address]- Care Team Providers Care Cad Librarian Name Role Phone Tray BROWN, Robert Anthony Primary Care Physician Encounter [facility] [place] Date(s): 04/28/22 - 05/28/22 [facility] Adult [address] [place] [address]- Attending Physician: Admtr, Samuel8 Admitting Physician: Admtr, Ar8 Referring Physician: Admtr, Ar8 Allergies, Adverse Reactions, Alerts Substance Reaction Severity Status codeine Active Fish Active tetanus toxoid Active sulfa drugs Active Immunizations Given and Recorded Vaccine Date Status Refusal Reason Influenza Virus Vaccine (oldterm) 1 02/03/22 Recor ded SARS-CoV-2 mRNA (ylwetkl-kvyz-bscfx) vax 08/06/21 Recorded SARS-CoV-2 (COVID-19) mRNA BNT-162b2 [...] 06/20/12 Recorde d 1Result Comment: influenza at [facility] 2Location History: [facility] 4Result Comment: [06/19/2016] [facility] 5Result Comment: [06/19/2016] [facility] 6Early/Late Reason: Other : 7Result Comment: [06/19/2016] [facility] 8Result Comment: [06/19/2016] [facility] 9Result Comment: [06/19/2016] [facility] 10Result Comment: [06/19/2016] [facility] Medications albuterol 0.083% inhalation solution 3 mL, Inhalation, Every 6 hours, USE ACAPELLA DEVICE AFTER EVERY TREATMENT., # 360 mL, 5 Refills, [facility] #[id number], 151, cm, 09/29/21 13:12:00 EDT, Height, 61.69, [...] 10/17/21 15:25:00 EDT, Route to Pharmacy Electronically, [id number], [facility] #[id number], 151, cm, 09/29/21 13:12:00 EDT, Hei... Start Date: 10/17/21 Status: Ordered Sodium Chloride, Inhalation 0.9% inhalation solution See Instructions, USE 4 ML VIA NEBULIZER TWICE DAILY USE WITH 0.5% VIA INHALER SOLUTION TOGETHER INVIA NEBULIZER, # 300 mL, 0 Refills, Maintenance, 04/28/22 9:38:00 EST, [facility] #[id number],25, USE 4 ML VIA NEBULIZER TWICE DAILY [...] meeting GFR criteria 5[place] [facility] [place]. Cardiac MRI: LVEF 44%; 12/16/20 [place] [facility] LVEF=40-45% [id number]-Dvxnqwxoc as lung mass. S/P R-CHOP x 6 cycles. Social History Social History Type Response Smoking Status Former smoker entered on: 09/06/14 Sex Note * Event Display: MM Mammogram Authored Date: * Event Display: Holter Report Authored Date: * Event Display: MM Mammogram Authored Date: * Event Display: CT Scan Head, Non- BH Authored Date: * Event Display: MM Mammogram Authored Date: * Event Display: Stress Test Worksheet Authored Date: EKG study * Event Display: EKG Authored Date: CT Skeletal system Multisection for bone density * Event Display: Bone Density Authored Date: Patient Care team information Care Team Personnel Name: Francoise Black RN Position: S RN Member Role: Primary Care Nurse Name: Chiqui Stoll RN Position: S RN Member Role: Primary Care Nurse Name: Robert Feliz MD Position: [facility] Primary Care Physician Member Role: PCP Address: Address: [address] [place] [address]- Care Team Related Persons Name: RAMIRO MARR Address: home [address] [place] [address]
--- OUTSIDE RECORDS SUMMARY | 2023-08-31 08:20 | XMS_ITS | Continuity of Care Document ---
Author Organization [facility] lt Address [address] [place] [address]- Care Team Providers Care Presser Cotton Ginning Name Role Phone Tray BROWN, Robert Anthony Primary Care Physician [phone] Encounter [facility] [place] Date(s): 04/08/21 - 05/08/21 [facility] Adult [address] [place] [address]- Allergies, Adverse Reactions, Alerts Substance Reaction Severity [...] vaccine 9 06/20/12 Recorded 1Location History: [facility] 2Location History: [facility] 3Result Comment: [06/19/2016] [facility] 4Result Comment: [06/19/2016] [facility] 5Early/Late Reason: Other : 6Result Comment: [06/19/2016] [facility] 7Result Comment: [06/19/2016] [facility] 8Result Comment: [06/19/2016] [facility] 9Result Comment: [06/19/2016] [facility] Medications albuterol 0.083% inhalation solution 3 mL = 2.5 mg, Inhalation, Every 6 hours, use Acapella device after every treatment, # 120 each, 3 Refills, Maintenance, 06/27/20 15:48:00 EST, Solution, [facility] #[id number], 151, cm, 02/05/20 7:35:00 EDT, Height Start Date: 06/27/20 Status: Ordered amoxicillin 500 mg oral capsule 4 capsule = 2,000 mg, By Mouth, Once, take 4 capsules prior to dental procedure, # 4 capsule, 5 Refills, Soft Stop, 05/06/21 17:27:00 EST, [facility] #54554, 151, cm, 05/05/21 12:08:00 EST,Height Start Date: [...] Replace Required Details, Route to Pharmacy Electronically, [facility] #[id number], 151, cm, 03/07/21 9:27:00 EST, Height Start Date: 04/15/21 Status: Ordered Hyper-Don 7% inhalation solution 4 mL = 0.28 Gm, Neb, 2 times a day, take with 0.5ml = 2.5 mg albuterol (add hypersal 4ml to 0.5ml albuterol) twice a day, # 240 mL, 11 Refills, Maintenance, 08/07/20 9:58:00 EDT, [facility]#[id number], J47.0 bronchiectasis, 4 mL Neb 2 times [...] 04/16/21 11:55:00 EST, Route to Pharmacy Electronically, [facility] #[id number], Partial fill upon patient request if th... Start Date: 04/16/21 Status: Ordered losartan 25 mg oral tablet 12.5 mg, 0.5, tablet, By Mouth, Daily, Take 0.5 tablet (12.5mg) daily, # 15 tablet, Refills 11, Tot. Refills 11, Maintenance, 02/05/21 8:59:00 EDT, Route to Pharmacy Electronically, [facility] #[id number], Partial fill upon patient request if the... Start Date: 02/05/21 Status: Ordered meloxicam 7.5 mg oral tablet 1 tablet, By Mouth, Daily, # 90 tablet, 0 Refills, [facility] #[id number], 151, cm, 12/27/20 8:19:00 EDT, Height Start [...] 01/10/21 13:45:00 EDT, Route to Pharmacy Electronically, [facility] #[id number], Partial fill upon patientrequest if the prescription is for a schedule II op... Start Date: 01/10/21 Status: Ordered ProAir HFA 90 mcg/inh inhalation aerosol with adapter 2, puffs, Inhalation, 4 times a day, PRN, # 1 each, Refills 6, Tot. Refills 6, Maintenance, 08/26/20 14:10:00 EDT, Route to Pharmacy Electronically, [id number], [facility] #[id number], 151, cm, 08/26/20 13:26:00 EDT, Height Start Date: 08/26/20 Status: Ordered rosuvastatin 5 mg oral tablet 1 tablet = 5 mg, By Mouth, Daily, # 30 tablet, 5 Refills, Maintenance, 04/08/21 9:24:00 EST, Tablet, [facility] #[id number], 151, cm, 03/07/21 9:27:00 EST, Height Start Date: 04/08/21 Stop Date: 10/05/21 Status: Ordered Trelegy Ellipta 200 mcg-62.5 mcg-25 mcg/inh inhalation powder 1 puffs, Inhalation, Daily, at the same time every day, # 1 each, 6 Refills, Maintenance, 12/06/20 9:31:00 EDT, Powder, [facility] #06704, Partial fill upon patient request if the [...]
--- OUTSIDE RECORDS SUMMARY | 2023-08-31 08:20 | XMS_ITS | Continuity of Care Document ---
Author Organization [facility] Address [address] [address]- Care Team Providers Care Electrician Substation Supervisor Name Role Phone Tray BROWN, Robert Anthony Primary Care Physician [place] [facility] 10[place]09/20 [facility] [address] [address]- Attending Physician: Adithya Sheth Admitting Physician: AdmAdithya [...] 3 Refills, Maintenance, 06/27/20 15:48:00 EST, Solution, [facility] #[id number], 151, cm, 02/05/20 7:35:00 EDT, Height Start Date: 06/27/20 Status: Ordered amoxicillin 500 mg oral capsule 4 capsule = 2,000 mg, By Mouth, Once, take 4 capsules prior to dental procedure, # 4 capsule, 0 Refills, Soft Stop, 08/15/20 16:35:00 EDT, [facility] #[id number], 151, cm, 02/05/20 7:35:00 EDT, Height Start Date: 08/15/20 Status: Ordered aspirin 81 mg oral tablet, chewable 81 mg, 1, tablet, By Mouth, Daily, # 90 tablet, Refills 3, Tot. Refills 3, Maintenance, 02/05/20 7:58:00 EDT, Route to Pharmacy Electronically, [facility] #[id number], 151, cm, 02/05/20 7:35:00 EDT, Height, 65.4, kg, 05/02/18 11:04:00 EST, Dry We... Start Date: 02/05/20 Status: Ordered Hyper-Don 7% inhalation solution 4 mL = 0.28 Gm, Neb, 2 times a day, take with 0.5ml = 2.5 mg albuterol (add hypersal 4ml to 0.5ml albuterol) twice a day, # 240 mL, 11 Refills, Maintenance, 08/07/20 9:58:00 EDT, [facility]#97347, J47.0 bronchiectasis, 4 mL Neb 2 times a da... Start Date: 08/07/20 Stop Date: 08/02/21 Status: Ordered meloxicam 7.5 mg oral tablet 1 tablet, By Mouth, Daily, # 90 tablet, 0 Refills, Maintenance, 09/30/20 13:27:00 EDT, [facility] #[id number], 151, cm, 09/09/20 9:14:00 EDT, Height Start [...] 08/26/20 14:10:00 EDT, Route to Pharmacy Electronically, [id number], [facility] #[id number], 151, cm, 08/26/20 13:26:00 EDT, Height Start [...]
--- OUTSIDE RECORDS SUMMARY | 2023-08-31 08:20 | XMS_ITS | Continuity of Care Document ---
Author Organization [facility] ter Address [address] [place] [id number] Care Team Providers Care Drafter Civil Name Role Phone Tray BROWN, Robert Anthony Primary Care Physician [phone] [place] [facility] [place](s): 04/10/22 - 04/11/[address] [id number] Discharge Disposition: A-D/C Home Attending Physician: Sharlene Gillespie MD Admitting Physician: Huy Cardozo MD Referring Physician: Not on Staff, Referring MD Allergies, Adverse Reactions, Alerts Substance Reaction Severity Status codeine Active tetanus toxoid Active sulfa drugs Active Immunizations Given and Recorded Vaccine Date Status Refusal Reason Influenza Virus Vaccine (oldterm) 1 02/03/22 Recor ded SARS-CoV-2 mRNA ([id number]) vax 08/06/21 Recorded SARS-CoV-2 (COVID-19) mRNA BNT-162b2 [...] Recorde d 1Result Comment: influenza at [facility] 2Location History: [facility] 3Location History: [facility] 4Result Comment: [06/19/2016] [facility] 5Result Comment: [06/19/2016] [facility] 6Early/Late Reason: Other : 7Result Comment: [06/19/2016] [facility] 8Result Comment: [06/19/2016] [facility] 9Result Comment: [06/19/2016] [facility] 10Result Comment: [06/19/2016] [facility] Medications albuterol 0.083% inhalation solution 3 mL, Inhalation, Every 6 hours, USE ACAPELLA DEVICE AFTER EVERY TREATMENT., # 360 mL, 5 Refills, [facility] #[id number], 151, cm, 09/29/21 13:12:00 EDT, Height, 61.69, kg, 09/29/21 13:11:00 EDT, Dry Weight Start Date: 11/13/21 Status: Ordered amoxicillin 500 mg oral capsule 4 capsule = 2,000 mg, By Mouth, Once, take 4 capsules prior to dental procedure, # 4 capsule, 5 Refills, Soft Stop, 03/09/22 6:10:00 EST, [facility] #[id number], 151, cm, 02/11/22 8:43:00 EDT, Height, 61.69, kg, 09/29/21 13:11:00 EDT, Dry Weight Start Date: 03/09/22 Status: Ordered Azithromycin 5 Day Dose Pack 250 mg oral tablet See Instructions, as directed on package labeling, # 6 tablet, 0 Refills, Maintenance, 04/08/22 10:23:00 EST, Tablet, [facility] #[id number], Partial fill upon patient request if the prescription is for a schedule II opioid drug., 151, cm, 02/11/... Start Date: 04/08/22 Status: Ordered bisoprolol 5 [...] Unknown, Refills 3, Route to Pharmacy Electronically, [facility], 151, cm, 09/29/21 13:12:00 EDT, Height, 61.69, kg, 09/29/21 13:11:00 EDT, Dry Weight Start Date: 11/05/21 Status: Ordered Hyper-Don 7% inhalation solution 4 mL = 0.28 Gm, Neb, 2 times a day, take with 0.5ml = 2.5 mg albuterol (add hypersal 4ml to 0.5ml albuterol) twice a day J47.0, # 720 mL, 1 Refills, Maintenance, 07/28/22 9:58:00 EDT, [facility] #[id number], J47.0 bronchiectasis, 4 mL Neb 2 times... [...] Date: 06/12/21 Stop Date: 06/07/22 Status: Ordered losartan 25 mg oral tablet 12.5 mg, Tablet, By Mouth, 04/11/22 9:00:00 EST Start Date: 04/11/22 Stop Date: 04/11/22 Status: Completed Nebulizer/Compressor See Instructions, # 1 each, Refills [...] Acute 05/02/22 10:23:00 EST, 04/08/22 10:23:00 EST, [facility] #[id number], Partial fill upon patient request if the prescription is for a... Start Date: 04/08/22 Stop Date: 05/02/22 Status: Ordered ProAir HFA 90 mcg/inh inhalation aerosol with adapter 2, puffs, Inhalation, 4 times a day, PRN, # 1 each, Refills 5, Tot. Refills 5, Maintenance, 10/17/21 15:25:00 EDT, Route to Pharmacy Electronically, [id number], [facility] #[id number], 151, cm, 09/29/21 13:12:00 EDT, Hei... Start Date: 10/17/21 Status: Ordered Sodium Chloride, Inhalation 0.9% inhalation solution 4 mL = 0.036 Gm, Neb, 2 times a day, use with 0.5% albuterol solution together in nebulizer, # 240 mL, 6 Refills, Maintenance, 06/12/21 19:39:00 EST, [facility] #[id number], Partial fill upon patient request if the [...] 5Admission to [facility] [place]. Cardiac MRI: LVEF 44%; 12/16/20 echo at [facility] [place]: LVEF=40-45% [id number] as lung mass. S/P R-CHOP x 6 cycles. Results Radiology Reports * Exam Date Time Procedure Performing Provider Status 04/10/22 7:27 PM Chest 2 Views Frontal and Lat Ruthie Nguyen; Auth (Verified) Notes: (Chest 2 Views Frontal and Lat) Reason For Exam: Chest Pain;Other: RESULT: Chest 2 Views Frontal and Lat Chest 2 Views Frontal and Lat Hx of Present Illness: c o sob with chest tightness; Reason: Other:; Chest Pain; Clinical Question(s): Other: COMPARISON: X-ray from 12/18/2021 FINDINGS: LINES AND TUBES: None. LUNGS AND PLEURA: Chronic left lung volume loss with scarring and/or atelectasis involving the left lower lobe and/orlingula identical to prior study. The right lung is clear and mildly hyperinflated. No pleural effusion. No pneumothorax. HEART, MEDIASTINUM AND JOSE CARLOS: Heart is normal in size. The heart and mediastinum is shifted towards the left, unchanged. Normal mediastinal and hilar contour. BONES AND SOFT TISSUES: No acute abnormality. IMPRESSION: Chronic volume loss with scarring and/or atelectasis in the left lower lobe. No superimposed acute abnormality. WSN: [id number] Ordering Physician: Gurinder Finley Dictated By: Jose Hwang MD Dictated Date/Time: 04/10/22 8:14 pm Reviewed By: Jose Hwang MD Signed By: Jose Hwang MD Signed Date/Time: 04/10/22 8:14 pm Transcribed By: JUSTICE Transcribed Date/Time: 04/10/22 8:13 pm Vital Signs Most recent to oldest [Reference Range]: 1 2 3 Height 150 cm (04/11/22 11:27 AM) 150 cm (04/11/22 7:11 AM) 150 cm (04/11/22 3: AM) Weight 62.9 kg (04/11/22 3: AM) Oxygen Saturation [94-100 %] 95 % (04/11/22 11:27 AM) 100 % (04/11/22 7:11 AM) 98 % (04/11/22 3: AM) Pulse Rate [55-90 bpm] 84 bpm (04/11/22 11: AM) 60 bpm (04/11/22 7:11 AM) 67 bpm (04/11/22: AM) Body Mass Index [18.5-24.99 kg/m2] 27.96 kg/m2 *H* (04/11/22 3: AM) Blood Pressure [90-138/55-84 mm Hg] 124/70mm Hg (04/11/22 11:27 AM) 105/63mm Hg (04/11/22 7:40 AM) 105/63mm Hg (04/11/22 7:11 AM) Respiratory Rate [16-30 br/min] 18 br/min (04/11/22 11:27 AM) 18 br/min (04/11/22 9:17 AM) 18 br/min (04/11/22 7:11 AM) Temperature [96.8-100.4 DegF] 97.7 DegF (04/11/22 11:27 AM) 97.5 DegF (04/11/22 7:11 AM) 98.1 DegF (04/11/22 3:27 AM) Mode of Delivery (Oxygen) Room air (04/11/22 11:27 AM) Room air (04/11/22 7:11 AM) Room air (04/11/22 3:27 AM) Blood pressure sites Arm, left (04/11/22 11:27 AM) Arm, left (04/11/22 7:11 AM) Arm, right (04/11/22 3:27 AM) Temperature Route Oral (04/11/22 11:27 AM) Oral (04/11/22 7:11 AM) Oral (04/11/22 3:27 AM) Dry Weight 62.9 kg (04/11/22 3:27 AM) Social History Social History Type Response Smoking Status Former smoker entered on: 09/06/14 Sex History and physical note * Heidi BROWN, [facility]: PERFORM Event Display: History and Physical Hospital Authored Date: Patient: ??PARENT, MILLICENT ? Age:??81 Years?Sex:??Female?:??1940?? History of Present Illness 81-year-old female with a past medical history of??COPD,??heart failure,??history of non-Hodgkin's lymphoma in remission??who presented to hospital with??chest discomfort and ??shortness of breath.??Patient reports that she has been having wheezing and cough??about a week ago, sore throat, she was running azithromycin and prednisone??with which initially showed improvement in her symptoms??but prior to presentation??she??was found out of bed and noticed chest pressure,??bandlike sensation across the chest and the back,??associated with??shortness of breath worse with laying flat??and exertion??better with sitting upright.?? Patient also has associated lightheadedness.?Patient denies having any increased abdominal girth, peripheral edema. ??Patient does endorse??increased intake and nosalty foods. ??Patient reported she??tried to??get in contact with her outpatient provider who recommended her to be evaluated in the ED and initially presented.?? Patient reports that she is a former smoker,??smoked about a pack a day for 20 years and quit 20 years ago,??no premature history of??heart disease in her family. ?? Patient had a nuclear stress test??on 03/11, Patient with small in size mild intensity, partially reversible perfusion defect in the apical anterior and apical septal segments that worsens with the stress concerning for small scar with mixed with ischemia, normal LV function at rest and stress. EKGportion revealed no ischemic EKG changes.?? she was??scheduled for coronary CT??next week ? In the emergency department,??patient was hemodynamically stable, , CBC within normal limits, BMP within normal limits for patient, troponin 21, 22, 25, EKG shows normal sinus rhythm, poor R wave progression??which are all similar to previous EKG, no acute ST-T changes noted,??chest x-ray showedchronic volume loss with scarring atelectasis of the left lower lobe, no superimposed acute abnormality, she also received IV Lasix??and nitro with with symptoms have improved. Review of Systems A full review of systems was completed and is otherwise negative except as mentioned in history of present illness. Objective Measurements?? Height: 150 cm (04/11/22) Weight: 62.9 kg (04/11/22) Dry Weight: 62.9 kg (04/11/22) Body Mass Index:??27.96 kg/m2??High (04/11/22) ? Vital Signs?? Temperature: 98.1 DegF (04/11/22 03:27:00) Temperature Route: Oral (04/11/22 03:27:00) Pulse Rate: 67 bpm (04/11/22 03:27:00) Respiratory Rate: 18 br/min (04/11/22 03:27:00) Systolic Blood Pressure:??142 mm Hg??High (04/11/22 03:27:00) Diastolic Blood Pressure: 79 mm Hg (04/11/22 03:27:00) Blood pressure sites: Arm, right (04/11/22 03:27:00) Mean Arterial Pressure: 100 mm Hg (04/11/22 03:27:00) Pulse Pressure: 63 mm Hg (04/11/22 03:27:00) Oxygen Saturation: 98 % (04/11/22 03:27:00) Mode of Delivery (Oxygen): Room air (04/11/22 03:27:00) Early Warning Score: 0 (04/11/22 03:31:50) ? Physical Exam Constitutional: Alert, in no acute distress. Head EENT: Extraocular muscle movement intact.??Moist mucous membranes.?? Neck: Supple. No JVD. Respiratory: b/l crackles. No use of accessory muscles. Cardiovascular: S1S2 regular. No murmurs, rubs or gallops. Gastrointestinal: Abdomen soft, non-tender, non-distended. Normal bowel sounds. Genitourinary: No CVA tenderness. Extremities: No lower extremity pitting??edema. No cyanosis or clubbing. Neurologic: AAOx3, Speech normal. moves all extremities symmetrically Skin: No rash. Psychiatric: Normal mood and affect Assessment/Plan Diagnoses CKD (chronic kidney disease) ??(N18.9) 1. 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 ??Diffuse large B cell lymphoma in remission ??(C83.30) 3. ??Heart failure with preserved ejection fraction ??(I50.30) 4. ??Chest pain ??(R07.9) ?? Assessment:??81-year-old female with a past medical history of COPD, heart failure, history of non-Hodgkin's lymphoma in remission who presented to hospital with chest discomfort and shortness of breath. ?? Chest pain (R07.9):??Reports to have chest pressure, bandlike sensation, worse with exertion??also with having orthopnea and shortness of breath,??symptoms??are likely in the setting of CHF,??howevershe had abnormal stress test Patient had a nuclear stress test on 03/11, Patient with small in sizemild intensity, partially reversible perfusion defect in the apical anterior and apical septal segments that worsens with the stress concerning for small scar with mixed with ischemia, normal LV function at rest and stress. EKG portion revealed no ischemic EKG changes. she was scheduled for coronary CT next week today EKG today does not show any acute changes, troponin trend has been flat 21, 22 and 25.??Symptoms improved with IV Lasix and nitro -Cardiology consult for elvira lambert, fanny cardiac cath vs coronary ct -Continue Plavix, patient is not on statin -LDL 69 -cardiac rehab nurse -nitro prn ?? COPD with chronic bronchitis (J44.9):??Patient on Z-Bruce and prednisone course, will continue??started on 1214??patient was given prednisone??30 mg for 3 days followed by 30 mg 3 days and 10 mg statusand to stop,??she would be starting 30 mg??today ??-Continue albuterol as needed -Substitute formulary for Trelegy Diffuse large B cell lymphoma in remission (C83.30):??In remission ?? Heart failure with preserved ejection fraction (I50.30):??Lady comes in, crackles on??exam, orthopnea, worsening dyspnea on exertion -IV??Lasix??40 twice daily -Continue losartan 12.5 -Per medication list patient is not taking bisoprolol -I/o ?? H/o TIA: cont plavix ?? CKD (chronic kidney disease) (N18.9):??Renal function at baseline, monitor renal function while patient is on diuretics. ?? VTE Prophylaxis:??heparin ?VTE Prophylaxis Assessment:??VTE Prophylaxis Ordered ?? Code Status:??ladan wishes to be full code ?Order Code Status:??Code Status Ordered ?? Ongoing Medical Necessity:??IV diuresis, cardiology consult ?? Discharge Planning:??pending clinical course ?? This note was created using Torrential speech recognition software, there may be unwanted word substitution, typographical errors or grammatical error, an attempt at proofreading has been made to minimize errors. please call if there are any questions regarding plan of care. ?? Histories Allergies Allergies ?(Active and Proposed Allergies Only) codeine? (Severity: Unknown severity, Onset: Unknown) tetanus toxoid? (Severity: Unknown severity, Onset: Unknown) sulfa drugs? (Severity: Unknown severity, Onset: Unknown) ? 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 Past Surgical History No surgery history??reported she reported that she had some eye procedure does not recall what it??was ? Social History Alcohol Details:??Use: Current. ??Frequency: 1-2 times per week. ??Type: Wine. ??Binge drinking: No. ??Alcohol use interferes with work or home: No. ??Drinks more than intended: No. 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 Exercise Details:??Regular exercise: Yes. ??Exercise frequency: 5-6 times/week. ??Exercise type: Exercise machines, Walking. Home/Environment Details:??Living situation: Home/Independent. ??Lives with: Alone. Nutrition/Health Details:??Diet: Regular. ??Other: Weight Watchers. Tobacco Details:??Former smoker ? Family History Both parents of old age lived to 90s ? Medications Home Medications Albuterol (ProAir HFA 90 mcg/inh inhalation aerosol with adapter)?2?puff(s)?Inhalation?4 times a day?as needed?Wheezing/Shortness of Breath Albuterol (albuterol 0.083% inhalation solution)?3?Milliliter?Inhalation?Every 6 hours?USE ACAPELLA DEVICE AFTER EVERY TREATMENT. Amoxicillin (amoxicillin 500 mg oral capsule)?4?capsule?2,000?Milligram?By Mouth?Once?take 4 capsules prior to dental procedure Azithromycin (Azithromycin 5 Day Dose Pack 250 mg oral tablet)?See Instructions?as directed on package labeling Bisoprolol (bisoprolol 5 mg oral tablet)?0.5?tab(s)?2.5?Milligram?By Mouth?Daily?for 90?Days Calcium Carbonate/Famotidine/Mg Hydroxide (Pepcid Complete)?By Mouth?Every 12 hours Clopidogrel (clopidogrel 75 mg oral tablet)?1?tablet?By Mouth?Daily Durable Medical Equipment (Nebulizer/Compressor)?See Instructions?E0570 Nebulizer A7003 Neb Disp Set ??A7014 Neb non-Disp Filter ??A7005 Neb Non-Disp set A7015 Aerosol Mask A7013 Neb Disp Filter ??length of need lifetime 99 months ??DX COPD J44.9 fluticasone/umeclidinium/vilanterol (Trelegy Ellipta 200 mcg-62.5 mcg-25 mcg/inh inhalation powder)?1?puff(s)?Inhalation?Daily?at the same time every day, j44.9 Furosemide (Lasix 40 mg oral tablet)?1?tablet?By Mouth?Daily Losartan (losartan 25 mg oral tablet)?12.5?Milligram?0.5?tablet?By Mouth?Daily?for 90?Days?Take 0.5 tablet (12.5mg) daily PredniSONE (predniSONE 10 mg oral tablet)?See Instructions?30mg x 3 days, then 20mg x3 ??days, then 10mg x 3 days, then stop Sodium Chloride (Sodium Chloride, Inhalation 0.9% inhalation solution)?4?Milliliter?0.036?gram?Neb?2 times a day?for 30?Days?use with 0.5% albuterol solution together in nebulizer Sodium Chloride (Hyper-Don 7% inhalation solution)?4?Milliliter?0.28?gram?Neb?2 times a day?take with 0.5ml = 2.5 mg albuterol (add hypersal 4ml to 0.5ml albuterol) twice a day J47.0 ? Results Recent Labs BLOOD COUNT & DIFF WBC 8.9 k/mm3 ()?? 04/10/2022 19:29 RBC 3.87 m/mm3 (Low)?? 04/10/2022 19:29 Hgb 11.6 Gm/dL (Low)?? 04/10/2022 19:29 Hct 36.5 % ()?? 04/10/2022 19:29 MCV 94.3 femtoliters ()?? 04/10/2022 19:29 MCH 30.0 pg ()?? 04/10/2022 19:29 MCHC 31.8 g/dL (Low)?? 04/10/2022 19:29 Platelet Count 306 k/mm3 ()?? 04/10/2022 19:29 RDW-SD 47.2 femtoliters (High)?? 04/10/2022 19:29 MPV 10.1 femtoliters ()?? 04/10/2022 19:29 Nucleated RBC (Automated) 0.0 #/100 WBC'S ()?? 04/10/2022 19:29 Abs. NRBC 0.0 k/mm3 ()?? 04/10/2022 19:29 Abs. Neut 7.5 k/mm3 (High)?? 04/10/2022 19:29 Abs. Lymph 1.1 k/mm3 ()?? 04/10/2022 19:29 Abs. [place] 0.3 k/mm3 (Low)?? 04/10/2022 19:29 Abs. Eo 0.0 k/mm3 ()?? 04/10/2022 19:29 Abs. Baso 0.0 k/mm3 ()?? 04/10/2022 19:29 Neut % 84.1 % (High)?? 04/10/2022 19:29 Lymph % 12.0 % (Low)?? 04/10/2022 19:29 [place] % 3.1 % (Low)?? 04/10/2022 19:29 Eos % 0.0 % ()?? 04/10/2022 19:29 Baso % 0.2 % ()?? 04/10/2022 19:29 Imm Gran 0.6 % ()?? 04/10/2022 19:29 Abs. Imm Gran 0.1 k/mm3 ()?? 04/10/2022 19:29 ?? CARDIAC Nt-Probnp 2965 pg/mL (High)?? 04/10/2022 19:29 High Sensitivity Troponin (HSTnT) 25 ng/L (High)?? 04/11/2022 01:03 ?? CHEM GENERAL Sodium 140 mmol/L ()?? 04/10/2022 19:29 Potassium 4.0 mmol/L ()?? 04/10/2022 19:29 Chloride 102 mmol/L ()?? 04/10/2022 19:29 Bicarbonate Level 23 mmol/L ()?? 04/10/2022 19:29 Anion Gap 15 ()?? 04/10/2022 19:29 Glucose Level 124 mg/dL (High)?? 04/10/2022 19:29 BUN 28 mg/dL (High)?? 04/10/2022 19:29 Creatinine-Blood 1.2 mg/dL (High)?? 04/10/2022 19:29 Estimated GFR Creatinine 49 ML/MIN/1.73 M2 ()?? 04/10/2022 19:29 Calcium 9.2 mg/dL ()?? 04/10/2022 19:29 ?? HEME OTHER Hold Blue Top SPECIMEN DISCARDED AFTER 4 HOURS. ()?? 04/10/2022 22:13 ?? VIROLOGY Influenza A PCR NEGATIVE ()?? 04/10/2022 22:14 Influenza B PCR NEGATIVE ()?? 04/10/2022 22:14 RSV PCR NEGATIVE ()?? 04/10/2022 22:14 COVID-19 PCR Specimen Source NASAL ()?? 04/10/2022 22:14 COVID-19 PCR Result NEGATIVE ()?? 04/10/2022 22:14 COVID-19 POC Result NEGATIVE ()?? 04/10/2022 18:55 ? EKG study * Event Display: EKG Authored Date: * Event Display: ECG 12-Lead Authored Date: Please click on pdf link to open report * Event Display: ECG 12-Lead Authored Date: Ventricular Rate: 86 BPM Atrial Rate: 86 BPM P-R Interval: 140 ms QRS Duration: 96 ms Q-T Interval: 370 ms QTC Calculation(Bazett): 442 ms R [place]: -41 degrees T [place]: 86 degrees Poor data quality, interpretation may be adversely affected Normal sinus rhythm Left axis deviation Minimal voltage criteria for LVH, may be normal variant Anteroseptal infarct (cited on or before 04-NOV-2016) Abnormal ECG When compared with ECG of 10-FEB-2022 17:13, No significant change was found Confirmed by BEVERLEY BROWN KUNAL ([id number]) on 04/11/2022 11:54:13 AM [place]: [facility] * Francoise Black RN: PERFORM, SIGN, VERIFY Event Display: Progress Note Hospital Authored Date: [id number] Patient: MILLICENT MARR Age: 81 years Sex: Female : 1940 Associated Diagnoses: None Author: Francoise Black RN Findings Narrative/Incidental Pt A/Ox4, no SOB, No CP V/S stable, SR PAC on Tele. Lung slightly dim in the bases. coughing non productive, pt verbalizes Ticlish and triggers her coughing. Pt not in any pain or discomfort, position in comfort. Instructed to drink water when she feels her troat dry so it wont tickle. Awaiting to be seen by MD. fowler within reach. will continue to monitor.. Note * Nano Lagos RN: PERFORM Event Display: Discharge/Transfer Note Hospital Authored Date: [id number] Nursing Discharge Note Entered On: 04/11/2022 13:49 EST Performed On: 04/11/2022 13:49 EST by Nano Lagos RN Nursing Discharge Note 2 Discharge Time : 04/11/2022 13:49 EST Discharge Level of Care at Discharge : Home/Penitentiary/Foster Care Patient Left Unit Via : Wheelchair Patient Accompanied Off Unit with : Responsible adult DC Instructions Provided & Signed by Pt : Yes Patient Understands D/C Instructions : Yes Patient Instructions Discharge Signed : Yes Did Pt have Specialty Bed or Wound Vac : No Nano Lagos RN - 04/11/2022 13:49 EST * Jose Miguel BROWN, Sharlene: PERFORM Event Display: Discharge/Transfer Note Hospital Authored Date: [id number] Patient: ??PARENT, MILLICENT ? Age:??81 Years?Sex:??Female?:??1940?? Patient Information Discharge Location: D3B Primary Care Physician: Tray BROWN, Robert Anthony Admit Date/Time: 04/10/22 18:40 Discharge Disposition Discharge Disposition: Home: No Services Discharge Diagnosis COPD with chronic bronchitis (J44.9) Diffuse large B cell lymphoma in remission (C83.30) Heart failure with preserved ejection fraction (I50.30) Chest pain (R07.9) CKD (chronic kidney disease) (N18.9) ?? _ Discharge Medications Albuterol (ProAir HFA 90 mcg/inh inhalation aerosol with adapter)?2?puff(s)?Inhalation?4 times a day?as needed?Wheezing/Shortness of Breath Albuterol (albuterol 0.083% inhalation solution)?3?Milliliter?Inhalation?Every 6 hours?USE ACAPELLA DEVICE AFTER EVERY TREATMENT. Amoxicillin (amoxicillin 500 mg oral capsule)?4?capsule?2,000?Milligram?By Mouth?Once?take 4 capsules prior to dental procedure Azithromycin (Azithromycin 5 Day Dose Pack 250 mg oral tablet)?See Instructions?as directed on package labeling Bisoprolol (bisoprolol 5 mg oral tablet)?0.5?tab(s)?2.5?Milligram?By Mouth?Daily?for 90?Days Calcium Carbonate/Famotidine/Mg Hydroxide (Pepcid Complete)?By Mouth?Every 12 hours Clopidogrel (clopidogrel 75 mg oral tablet)?1?tablet?By Mouth?Daily Durable Medical Equipment (Nebulizer/Compressor)?See Instructions?E0570 Nebulizer A7003 Neb Disp Set ??A7014 Neb non-Disp Filter ??A7005 Neb Non-Disp set A7015 Aerosol Mask A7013 Neb Disp Filter ??length of need lifetime 99 months ??DX COPD J44.9 fluticasone/umeclidinium/vilanterol (Trelegy Ellipta 200 mcg-62.5 mcg-25 mcg/inh inhalation powder)?1?puff(s)?Inhalation?Daily?at the same time every day, j44.9 Furosemide (Lasix 40 mg oral tablet)?1?tablet?By Mouth?Daily Losartan (losartan 25 mg oral tablet)?12.5?Milligram?0.5?tablet?By Mouth?Daily?for 90?Days?Take 0.5 tablet (12.5mg) daily PredniSONE (predniSONE 10 mg oral tablet)?See Instructions?30mg x 3 days, then 20mg x3 ??days, then 10mg x 3 days, then stop Sodium Chloride (Sodium Chloride, Inhalation 0.9% inhalation solution)?4?Milliliter?0.036?gram?Neb?2 times a day?for 30?Days?use with 0.5% albuterol solution together in nebulizer Sodium Chloride (Hyper-Don 7% inhalation solution)?4?Milliliter?0.28?gram?Neb?2 times a day?take with 0.5ml = 2.5 mg albuterol (add hypersal 4ml to 0.5ml albuterol) twice a day J47.0 ? Medications Started None Medications Discontinued None Doses Changed None Allergies Allergies ?(Active and Proposed Allergies Only) codeine? (Severity: Unknown severity, Onset: Unknown) tetanus toxoid? (Severity: Unknown severity, Onset: Unknown) sulfa drugs? (Severity: Unknown severity, Onset: Unknown) ? PCP Follow-Up/Heads-Up Mild chf exacerbation, improved with iv lasix, needs hospital follow up and cards follow up, scheduled for coronary CT Future Appointments Wednesday 1:00 PM EST ?? With: Where: [facility] [address] [place] [address]- 2022 2:15 PM EST ?? With: Darling Jones NP Where: [facility] [address] [place] [address]- Wednesday 10:20 AM EST ?? With: Tray BROWN, Robert Anthony Where: [address] [address]- Hospital Course Please see below Objective Assessment and Plan 81-year-old female with a past medical history of COPD, heart failure, history of non-Hodgkin's lymphoma in remission who presented to hospital with chest discomfort and shortness of breath. ?? Chest pain (R07.9):??Patient's symptoms are more consistent with shortness of breath and chest tightness related to that rather than overt chest pain. Patient had a nuclear stress test on 03/11, Patient with small in size mild intensity, partially reversible perfusion defect in the apical anterior and apical septal segments that worsens with the stress concerning for small scar with mixed with ischemia, normal LV function at rest and stress. EKG portion revealed no ischemic EKG changes. she wasscheduled for coronary CT next week today EKG today does not show any acute changes, troponin trend has been flat , and 25.?? Patient had discussion with [facility] op, coronary angio?? patient did not want to proceed with thisinvasive strategy thus coronary CT to be done Symptoms improved with spot doses of iv lasix -Cardiology consulted,??ok with transition to po lasix and discharge Patient has outpatient coronary CT study scheduled and she??follows with Dr. Chowdary, so can continue with that plan??after discussion with cardiology ?? 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 Heart failure with preserved ejection fraction (I50.30):??Lungs CTAB on the day of discharge, patient not on supplemental oxygen, 2 pillow orthopnea at baseline, she is ambulating independently without requiring supplemental oxygen -Symptoms at baseline, transitioned to home po lasix 40 mg daily -Continue home losartan -Per medication list patient is not taking bisoprolol H/o TIA: cont plavix ?? CKD (chronic kidney disease) (N18.9):??Renal function at baseline, monitor renal function while patient is on diuretics. ?? Vital Signs?? Temperature: 97.7 DegF (04/11/22 11:27:00) Temperature Route: Oral (04/11/22 11:27:00) Pulse Rate: 84 bpm (04/11/22 11:27:00) Respiratory Rate: 18 br/min (04/11/22 11:27:00) Systolic Blood Pressure: 124 mm Hg (04/11/22 11:27:00) Diastolic Blood Pressure: 70 mm Hg (04/11/22 11:27:00) Blood pressure sites: Arm, left (04/11/22 11:27:00) Mean Arterial Pressure: 88 mm Hg (04/11/22 11:27:00) Pulse Pressure: 54 mm Hg (04/11/22 11:27:00) Oxygen Saturation: 95 % (04/11/22 11:27:00) Mode of Delivery (Oxygen): Room air (04/11/22 11::00) Early Warning Score: 4 (04/11/22 11::56) ? Mobility & Ambulation Level Mobility & Ambulation Level?? No qualifying data available. ?? Therapeutic Activity Therapeutic Activities/Mobility/Balance?? No qualifying data available. ?? . Physical Exam Constitutional: Alert, in no distress. Mental Status: Oriented to person, place and time. Head: Normocephalic. Eyes: Pupils are equal, round and reactive to light. Extraocular muscles intact. Ear, Nose and Throat: Oropharynx clear, mucous membranes moist. Ears and nose without masses, lesions or deformities. Trachea midline. Neck: Supple, Full range of motion. Respiratory: Clear to auscultation. No wheezing, rales or rhonchi. Cardiovascular: S1 S2 regular. No murmurs, rubs or gallops. Gastrointestinal: Abdomen soft, non-tender, non-distended. Normal bowel sounds. No pulsatile mass. No hepatosplenomegaly. Genitourinary: No costovertebral angle tenderness. Neurologic: Cranial nerves II-XII grossly intact. No focal neurological deficits. Flexor plantar response. Moves all extremities spontaneously. Sensation intact bilaterally. Skin: No rashes or lesions. No petechiae or purpura.?? Musculoskeletal: No cyanosis or clubbing. No gross deformities. Normal range of motion. Heme/Lymphatics/Immun: Palpation of neck reveals no swelling or tenderness of neck nodes. Palpationof groin reveals no swelling or tenderness of groin nodes. Psychiatric: Normal mood and affect Consultants Cardiology Pending Results No Pending Results Follow-Up Appointments Added Follow Up ?Time Frame ?Comments Tray BROWN, Robert Anthony?1 week: call to discuss follow up visit?hospital follow up Patient Instructions Please follow up with Dr. Chowdary as scheduled and get your coronary CT study done Continue home lasix 40 mg daily Follow up with your pcp after discharge Post Discharge Care Discharge ?04/11/22 12:38:00 EST Discharge Prescriptions ?None, ??04/11/22 12:38:00 EST Home Health Face to Face ^HomeHealthFTF Results Discharge Labs BLOOD COUNT & DIFF WBC 8.9 k/mm3 ()?? 04/10/2022 19:29 RBC 3.87 m/mm3 (Low)?? 04/10/2022 19:29 Hgb 11.6 Gm/dL (Low)?? 04/10/2022 19:29 Hct 36.5 % ()?? 04/10/2022 19:29 MCV 94.3 femtoliters ()?? 04/10/2022 19:29 MCH 30.0 pg ()?? 04/10/2022 19:29 MCHC 31.8 g/dL (Low)?? 04/10/2022 19:29 Platelet Count 306 k/mm3 ()?? 04/10/2022 19:29 RDW-SD 47.2 femtoliters (High)?? 04/10/2022 19:29 MPV 10.1 femtoliters ()?? 04/10/2022 19:29 Nucleated RBC (Automated) 0.0 #/100 WBC'S ()?? 04/10/2022 19:29 Abs. NRBC 0.0 k/mm3 ()?? 04/10/2022 19:29 Abs. Neut 7.5 k/mm3 (High)?? 04/10/2022 19:29 Abs. Lymph 1.1 k/mm3 ()?? 04/10/2022 19:29 Abs. [place] 0.3 k/mm3 (Low)?? 04/10/2022 19:29 Abs. Eo 0.0 k/mm3 ()?? 04/10/2022 19:29 Abs. Baso 0.0 k/mm3 ()?? 04/10/2022 19:29 Neut % 84.1 % (High)?? 04/10/2022 19:29 Lymph % 12.0 % (Low)?? 04/10/2022 19:29 [place] % 3.1 % (Low)?? 04/10/2022 19:29 Eos % 0.0 % ()?? 04/10/2022 19:29 Baso % 0.2 % ()?? 04/10/2022 19:29 Imm Gran 0.6 % ()?? 04/10/2022 19:29 Abs. Imm Gran 0.1 k/mm3 ()?? 04/10/2022 19:29 ?? CARDIAC Nt-Probnp 2965 pg/mL (High)?? 04/10/2022 19:29 High Sensitivity Troponin (HSTnT) 25 ng/L (High)?? 04/11/2022 01:03 ?? CHEM GENERAL Sodium 140 mmol/L ()?? 04/10/2022 19:29 Potassium 4.0 mmol/L ()?? 04/10/2022 19:29 Chloride 102 mmol/L ()?? 04/10/2022 19:29 Bicarbonate Level 23 mmol/L ()?? 04/10/2022 19:29 Anion Gap 15 ()?? 04/10/2022 19:29 Glucose Level 124 mg/dL (High)?? 04/10/2022 19:29 BUN 28 mg/dL (High)?? 04/10/2022 19:29 Creatinine-Blood 1.2 mg/dL (High)?? 04/10/2022 19:29 Estimated GFR Creatinine 49 ML/MIN/1.73 M2 ()?? 04/10/2022 19:29 Calcium 9.2 mg/dL ()?? 04/10/2022 19:29 ?? HEME OTHER Hold Blue Top SPECIMEN DISCARDED AFTER 4 HOURS. ()?? 04/10/2022 22:13 ? VIROLOGY Influenza A PCR NEGATIVE ()?? 04/10/2022 22:14 Influenza B PCR NEGATIVE ()?? 04/10/2022 22:14 RSV PCR NEGATIVE ()?? 04/10/2022 22:14 COVID-19 PCR Specimen Source NASAL ()?? 04/10/2022 22:14 COVID-19 PCR Result NEGATIVE ()?? 04/10/2022 22:14 COVID-19 POC Result NEGATIVE ()?? 04/10/2022 18:55 ? Blood Glucose Trend Glucose Level:??124 mg/dL??High (04/10/22 19:29:00) ? Microbiology ?? COVID-19, RSV, and Flu A/B, Rapid PCR?? Completed?? Source: Nasal Body Site: Nasopharyngeal Collected Dt/Tm: 04/10/2022 22:14 Last Updated Dt/Tm: 04/11/2022 00:16 ? 35??minutes spent on discharge * Nano Lagos RN: PERFORM Event Display: Patient Education/Instruction Authored Date: [id number] Inpatient Adult Discharge Instructions [address] [address] Name: MILLICENT MARR : 1940 Visit: 04/10/2022 18:40:00 Current Date: 04/11/2022 12:49 Account: [id number] Inpatient Adult Discharge Instructions We would like to thank you for allowing us to assist you with your healthcare needs. The following includes patient education materials and information regarding your injury/illness. Our entire staffstrives to provide an excellent experience for our patients and their families. PLEASE ENSURE YOU FOLLOW-UP PER THE INSTRUCTIONS BELOW! ?? YOUR OPINION IS IMPORTANT TO US! Please complete the survey you may receive by mail or email. Your feedback will be used to make improvements to the healthcare experiences of our patients and their families. Surveys are administered by [employer] ?? If further treatment with your primary care physician or another doctor is recommended, it is important for you to keep the appointment. Call your primary care physician or return to the Emergency Department immediately if your condition worsens, fails to improve, or new symptoms develop. If you need to find a doctor, you can call [facility] [employer] for a referral at [phone] or toll free at [phone] or log in to [email or web address].. ?? You can view and manage your care through the patient portal or by using a health care severo of your choosing. [employer] is a website that allows you to securely view your medical information including your hospital discharge summary, office visit summaries, medications and follow-up visits. You can also request appointments, renew medications, and request access to your medical information using a health care severo of your choosing, or just ask a question. You can enroll at [email or web address] or register during your next office visit. You have been discharged from [facility], Patient Care Unit: D3B. If you have any questions regarding these instructions after you leave, please call us and we will be happy to assist you. [facility] Your Care Team Attending Physician Sharlene Gillespie MD Discharging Providers Sharlene Gillespie MD Reason for Admission Chest pain Your Diagnosis COPD with chronic bronchitis Diffuse large B cell lymphoma in remission Heart failure with preserved ejection fraction Chest pain CKD (chronic kidney disease) Tests Performed Below is a partial list of the tests performed during your hospitalization. You may have had other tests and procedures not included in this list. Please discuss all test results with your provider. B Type Natriuretic Peptide Basic Metabolic Panel CBC w/ Differential COVID-19 RNA POC COVID-19, RSV, and Flu A/B, Rapid PCR High??Sensitivity??Troponin T Hold Blue Top Tube Troponin T, High Sensitivity XR Chest 2 Views Frontal and Lat Primary Care Provider Tray BROWN, Robert Anthony Advance Directive Health Care Proxy on File Yes - Health Care Proxy No qualifying data available. Discharge Vitals Temperature: 97.7 DegF Height: 150 cm Pulse Rate: 84 bpm Weight: 62.9 kg Respiratory Rate: 18 br/min Body Mass Index:??27.96 kg/m2??High Systolic Blood Pressure: 124 mm Hg Body surface area: 1.62 Diastolic Blood Pressure: 70 mm Hg ?? Oxygen Saturation: 95 % ?? Studies Pending All tests and labs ordered during this hospital stay have been completed unless listed below. Please discuss all pending results with your provider listed above in these instructions. ?? No incomplete studies found What to do next Instructions From Your Doctor Please follow up with Dr. Chowdary as scheduled and get your coronary CT study done Continue home lasix 40 mg daily Follow up with your pcp after discharge Discharge Orders Scheduled Follow-Up Appointments Wednesday 1:00 PM EST ?? With: Where: [facility] [address] [place] [address]- 2022 2:15 PM EST ?? With: Darling Jones NP Where: [facility] [address] [place] [address]- Wednesday 10:20 AM EST ?? With: Robert Feliz MD Where: [facility] [address] [place] [address]- You Need to Schedule the Following Appointments Follow Up with??Robert Feliz MD When??Within 1 week: call to discuss follow up visit Why: hospital follow up Where: [address] [facility] [place] [address]- Discharge Medications MILLICENT MARR :1940 Visit Date:04/10/2022 Medications: Please continue your medications until treatment is completed or stopped by your provider. Medications not listed below should be discontinued. Discuss any questions related to medications with your provider. What How Much When Instructions Next Dose Unchanged Albuterol (albuterol 0.083% inhalation solution) 3 Milliliter Inhalation Every 6 hours USE ACAPELLA DEVICE AFTER EVERY TREATMENT. ?? 04/11/22 resume as needed Unchanged Albuterol (ProAir HFA 90 mcg/ inh inhalation aerosol with adapter) 2 puff(s) Inhalation 4 times a day as needed for Wheezing/Shortness of Breath 04/11/22 resume as needed Unchanged Amoxicillin (amoxicillin 500 mg oral capsule) 4 capsule Oral Once take 4 capsules prior to dental procedure ?? Unchanged Azithromycin (Azithromycin 5 Day Dose Pack 250 mg oral tablet) See instructions as directed on package labeling ?? Unchanged Bisoprolol (bisoprolol 5 mg oral tablet) 0.5 tab(s) Oral Daily Duration: 90 Days Unchanged Calcium Carbonate/ Famotidine/ Mg Hydroxide (Pepcid Complete) Oral Every 12 hours 04/11/22 resume Unchanged Clopidogrel (clopidogrel 75 mg oral tablet) 1 tab(s) Oral Daily 04/12/22 am Unchanged Durable Medical Equipment (Nebulizer/ Compressor) See instructions E0570 Nebulizer A7003 Neb Disp Set ??A7014 Neb non-Disp Filter ??A7005 Neb Non- Disp set A7015 Aerosol Mask A7013 Neb Disp Filter ??length of need lifetime 99 months ??DX COPD J44.9 ?? Unchanged fluticasone/ umeclidinium/ vilanterol (Trelegy Ellipta 200 mcg-62.5 mcg-25 mcg/ inh inhalation powder) 1 puff(s) Inhalation Daily at the same time every day, j44.9 ?? 04/12/22 am Unchanged Furosemide (Lasix 40 mg oral tablet) 1 tab(s) Oral Daily 04/12/22 am Unchanged Losartan (losartan 25 mg oral tablet) 0.5 tab(s) Oral Daily Duration: 90 Days Take 0.5 tablet (12.5mg) daily ?? 04/12/22 am Unchanged PredniSONE (predniSONE 10 mg oral tablet) See instructions 30mg x 3 days, then 20mg x3 ??days, then 10mg x 3 days, then stop ?? 04/12/22 am Unchanged Sodium Chloride (Hyper-Don 7% inhalation solution) 4 Milliliter Nebulized inhalation Twice a day take with 0.5ml = 2.5 mg albuterol (add hypersal 4ml to 0.5ml albuterol) twice a day J47.0 ?? Unchanged Sodium Chloride (Sodium Chloride, Inhalation 0.9% inhalation solution) 4 Milliliter Nebulized inhalation Twice a day Duration: 30 Days use with 0.5% albuterol solution together in nebulizer ?? Test Results Below is a partial list of the most recent Laboratory test results done prior to this discharge. You may have had other tests and procedures not included in this list. Please discuss all test resultswith your provider. B Type Natriuretic Peptide (04/10/2022) ???Nt-Probnp - 2965 pg/mL Basic Metabolic Panel (04/10/2022) ???Sodium - 140 mmol/L???Potassium - 4.0 mmol/L???Chloride - 102 mmol/L???Bicarbonate Level - 23 mmol/L???Anion Gap - 15???Glucose Level - 124 mg/dL???BUN - 28 mg/dL???Creatinine-Blood - 1.2 mg/dL???Estimated GFR Creatinine - 49 ML/MIN/1.73 M2???Calcium - 9.2 mg/dL CBC w/ Differential (04/10/2022) ???WBC - 8.9 k/mm3???RBC - 3.87 m/mm3???Hgb - 11.6 Gm/dL???Hct - 36.5 %???MCV - 94.3 femtoliters???MCH - 30.0 pg???MCHC - 31.8 g/dL???Platelet Count - 306 k/mm3???RDW-SD - 47.2 femtoliters???MPV - 10.1 femtoliters???Nucleated RBC (Automated) - 0.0 #/100 WBC'S???Abs. NRBC - 0.0 k/mm3???Abs. Neut - 7.5 k/mm3???Abs. Lymph - 1.1 k/mm3???Abs. [place] - 0.3 k/mm3???Abs. Eo - 0.0 k/mm3???Abs. Baso - 0.0 k/mm3???Neut % - 84.1 %???Lymph % - 12.0 %???[place] % - 3.1 %???Eos % - 0.0 %???Baso % - 0.2 %???Imm Gran - 0.6 %???Abs. Imm Gran - 0.1 k/mm3 COVID-19 RNA POC (04/10/2022) ???COVID-19 POC Result - NEGATIVE COVID-19, RSV, and Flu A/B, Rapid PCR (04/10/2022) ???Influenza A PCR - NEGATIVE???Influenza B PCR - NEGATIVE???RSV PCR - NEGATIVE???COVID-19 PCR Specimen Source - NASAL???COVID-19 PCR Result - NEGATIVE High??Sensitivity??Troponin T (04/10/2022) ???High Sensitivity Troponin (HSTnT) - 22 ng/L Hold Blue Top Tube (04/10/2022) ???Hold Blue Top - SPECIMEN DISCARDED AFTER 4 HOURS. Troponin T, High Sensitivity (04/11/2022) ???High Sensitivity Troponin (HSTnT) - 25 ng/L Allergies (NKA means No Known Allergies) codeine sulfa drugs tetanus toxoid Problems Active Problems??(20) Abnormal echocardiogram?? Acquired bronchiectasis?? 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 Cardiomyopathy, nonischemic-LVEF 40-45%?? Carotid artery stenosis?? Chronic HFrEF with mildly reduced ejection fraction LVEF 40-45%?? Chronic kidney disease, stage 3b?? COPD with chronic bronchitis?? Diarrhea?? Diffuse large B cell lymphoma in remission?? Disorder of lung?? Diverticulosis?? Dysphagia?? Heart failure with preserved ejection fraction?? History of Clostridium difficile?? Insomnia?? Migraines?? CELINE (obstructive sleep apnea)?? Osteoarthritis of knee?? Osteoporosis?? Education Materials Below is the list of Educational Leaflet Providered with your Discharge Instructions. Valuables and Belongings I fully understand and agree that [facility] accepts no responsibility for all my personal property including clothing, toilet articles, radios, jewelry, dentures, hearing aids, rings, money, or any other property that is in my possession or is brought to me after admission. I understand certain valuables may be placed in a hospital safe for a short period of time. I understand that the hospital is not liable for loss or damage due to accident, fire, or other natural occurrence while said property is in the safe. I accept full responsibility for any personal property that I keep with me, and will not hold the hospital responsible in case of loss or disappearance. I acknowledge that i have been encouraged to send valuables and belongings home. ?? Review of Valuable and Belonging List: With patient, With witness Date for Pt to Sign Valuables/Belongings: 04/11/22 01:18:00 ?? Other Discharge Information ? Pulmonary Rehab Status?? Pulmonary Rehab Discharge Status?? Respiratory Rate: 18 br/min ? Common Emergency Awareness Tips IS IT A STROKE? Act FAST and Check for these signs: FACE Does the face look uneven? ARM Does one arm drift down? SPEECH Does their speech sound strange? TIME Call at any sign of stroke ?? Heart Attack Signs Chest discomfort: Most heart attacks involve discomfort in the center of the chest and lasts more than a few minutes, or goes away and comes back. It can feel like uncomfortable pressure, squeezing, fullness or pain. Discomfort in upper body: Symptoms can include pain or discomfort in one or both arms, back, neck, jaw or stomach. Shortness of breath: With or without discomfort. Other signs: Breaking out in a cold sweat, nausea, or lightheaded. Remember, MINUTES DO MATTER. If you experience any of these heart attack warning signs, call to get immediate medical attention! ?? Smoking can increase your chances of developing chronic health problems and can cause harmful effects to other family members in your house. If you smoke, you are strongly encouraged to quit. Please call [facility] [employer] [facility] at [phone] or [phone] ([phone]) or log in to [email or web address] for referrals to smoking cessation programs. ?? The National Suicide Prevention Hotline is available 16/11 if you or someone you know needs to find a reason to keep living. By calling 6-246-557-[employer] (9188) you'll be connected to a skilled, trained counselor at a crisis center in your area. INPATIENT DISCHARGE INSTRUCTIONS SIGNATURE PAGE MILLICENT MARR Location:[facility] Registration Date and Time:04/10/2022 18:40 EST Primary Care Physician: Tray BROWN, Robert Anthony, I MLILICENT MARR, have received the above patient education materials/instructions and have verbalized understanding. If ambulance or transport services are being used I further acknowledge being given a choice of service. ?? If you need to contact me, please call me at this number: . Patient/Shipping Processor Name: Patient/Shipping Processor Signature: Relationship to Patient: Witness Name/Signature: Date: * Nano Lagos RN: PERFORM Event Display: Patient Education Leaflets Authored Date: [id number] Furosemide Oral Tablet ?? [id number] Furosemide Oral Tablet Brands: Lasix Uses This medicine is used for the following purposes: ??? high blood pressure ??? swelling ?? Instructions This medicine may be taken with or without food. It is very important that you take the medicine at about the same time every day. It will work bestif you do this. Keep the medicine at room temperature. Avoid heat and direct light. This medicine will make you urinate more. If you have difficulty passing urine, please tell your doctor. This medicine may cause you to become more sensitive to the sun. Use sunscreen or wear protective clothing when you are exposed to the sun. It is important that you keep taking each dose of this medicine on time even if you are feeling well. If you forget to take a dose on time, take it as soon as you remember. If it is almost time for thenext dose, do not take the missed dose. Return to your normal dosing schedule. Do not take 2 doses of this medicine at one time. Tell your doctor and pharmacist about all your medicines. Include prescription and cxdu-vzg-[id number], vitamins, and herbal medicines. Do not suddenly stop taking this medicine. Check with your doctor before stopping. It is very important that you follow your doctor's instructions for all blood tests. ?? Cautions Tell your doctor and pharmacist if you ever had an allergic reaction to a medicine. Some patients taking this medicine have experienced serious side effects. Please speak with your doctor to understand the risks and benefits associated with this medicine. Do not use the medication any more than instructed. This medicine may cause dizziness or fainting, especially after exercising or in hot weather. Be very careful when standing or sitting up quickly. Your ability to stay alert or to react quickly may be impaired by this medicine. Do not drive or operate machinery until you know how this medicine will affect you. Please check with your doctor before drinking alcohol while on this medicine. Tell the doctor or pharmacist if you are , planning to be , or . Do not start or stop any other medicines without first speaking to your doctor or pharmacist. Do not share this medicine with anyone who has not been prescribed this medicine. ?? Side Effects The following is a list of some common side effects from this medicine. Please speak with your doctor about what you should do if you experience these or other side effects. ??? constipation ??? dizziness ??? dry mouth ??? lack of energy and tiredness ??? headaches ??? high blood sugar ??? low blood pressure ??? liver problems ??? red, burning, or itchy skin ??? stomach upset or abdominal pain ??? increased risk of sunburn ??? increased urinary frequency ??? blurring or changes of vision If you have any of the following side effects, you may be getting too much medicine. Please contactyour doctor to let them know about these side effects. ??? confusion ??? drowsiness or sedation ??? fainting ??? numbness or tingling in hands and feet ??? irritability ??? muscle cramps ??? muscle pain or weakness ??? tight or rigid muscles ??? thirst ??? unsteadiness while walking ??? urinating less often ??? dark urine Call your doctor or get medical help right away if you notice any of these more serious side effects: ??? shallow, irregular breathing ??? changes in memory, mood, or thinking ??? ear problems (ringingin the ears, hearing loss) ??? fast or irregular heart beats ??? kidney problems ??? kidney stones ??? signs of liver damage (such as yellowing of eye or skin, dark urine, or unusual tiredness) ??? seizures ??? light colored stool ??? unusual or unexplained tiredness or weakness ??? severe or persistent vomiting A few people may have an allergic reaction to this medicine. Symptoms can include difficulty breathing, skin rash, itching, swelling, or severe dizziness. If you notice any of these symptoms, seek medical help quickly. ?? Extra Please speak with your doctor, nurse, or pharmacist if you have any questions about this medicine. ?? [email or web address] IMPORTANT NOTE: This document tells you briefly how to take your medicine, but it does not tell youall there is to know about it. Your doctor or pharmacist may give you other documents about your medicine. Please talk to them if you have any questions. Always follow their advice. There is a more complete description of this medicine available in Martiniquais. Scan this code on your smartphone or tablet or use the web address below. You can also ask your pharmacist for a printout. If you have any questions, please ask your pharmacist. The display and use of this drug information is subject to Terms of Use. Copyright(c) 2021 [employer]. ?? [employer]. All rights reserved. This information is not intended as a substitute for professional medical care. Always follow your healthcare professional's instructions. ?? * Nano Lagos RN: PERFORM Event Display: Patient Education Leaflets Authored Date: COPD and Heart Disease ?? 70485 COPD and Heart Disease Some people have more than 1 health problem at one time. If you have emphysema or chronic bronchitis, 2 main conditions of COPD, you may also have heart disease. There is no direct link between COPD and heart disease. But the 2 conditions may affect each other. People with COPD or heart disease often have trouble breathing during normal tasks or physical activities. With COPD (chronic obstructive pulmonary disease), the lungs and airways are damaged. The damage ismost often caused by breathing in irritants over a long period of time. Your airways can become blocked with mucus or collapse. Because of this, air doesn???t flow normally through the airways in your lungs. This can cause shortness of breath or trouble breathing. Heart disease is any condition that affects how the heart works or the heart rhythm, or cause damage to the heart muscle, structure, valves, or vessels. Coronary artery disease (CAD) is the most common type of heart disease. It occurs when an artery that brings blood to the heart becomes blocked ornarrowed. If the artery is blocked, it can lead to a heart attack. Heart disease also includes other conditions. These include heart valve disease, heart failure, and heart rhythm problems (arrhythmias). How does COPD raise your risk for heart disease? Cigarette smoking is the main cause of COPD. Smokers are 2 to 4 times more likely to have heart disease or stroke. Even secondhand smoke raises your risk for heart disease. Not everyone with COPD will get heart disease. But you are more likely to raise your risk for it when you have COPD. Most people who develop COPD were smokers. Smoking makes your blood sticky. This can cause your blood to clot. When your blood clots, blood flow to the heart and brain is blocked. It also raises yourblood pressure. This raises your risk for heart disease. Smoking harms your lungs. This affects the delivery of oxygen to the body. COPD can cause inflammation in the body. This raises the risk of having coronary artery disease (CAD). COPD lowers the oxygen level in the blood. So your heart muscle may not get enough blood and oxygen. This puts extra strain on your heart. It can cause heart disease. ?? Symptoms of heart disease Some heart disease symptoms are the same as COPD symptoms. But there are many different heart disease symptoms to look out for. If you are being treated for COPD and have any of the symptoms below, call right away: ??? Trouble breathing or talking ??? Lips or fingernails turn blue or estrella ??? Symptoms gets worse and your medicine or treatments are not working ??? Dizziness, confusion, or feeling light-headed ??? Very fast heartbeat The symptoms below may be a sign of heart disease. Call your healthcare provider right away if you have any of these: ??? Shortness of breath that gets worse ??? Sudden weight gain ??? Coughing more than normal ??? Tiredness and weakness that get worse ?? Warning signs of a heart attack A heart attack is a major health event. It happens when blood flow to part of the heart is blocked.Many of the heart attack symptoms are very much like heart disease symptoms. They may start suddenly. Call right away if you have any of these warning signs: ??? Chest pain or discomfort that lasts for more than a few minutes ??? Pain or discomfort in one or both arms, the back, neck, jaw, or stomach ??? Shortness of breath ??? Weakness or numbness in arms and legs ??? Dizziness or feeling lightheaded ??? Feeling of sudden tiredness and weakness ??? Breaking out in a cold sweat ??? Vomiting or upset stomach, heartburn, indigestion, or belly pain ?? Treatment for heart disease Heart disease can be an ongoing health problem. But treatment will help you feel better. Your healthcare provider will work with you to make a treatment plan. Your treatment plan may include: ??? Quitting smoking. This is the most important risk factor you can change. If you smoke, it's never too late to help your heart. Ask your provider about nicotine replacement products and smoking cessation support. Quitting smoking is the single biggest way to reduce your risk of heart disease. Quitting can help make your symptoms better. ??? Taking medicine. Medicines help treat the symptoms of heart disease. They can also lower the chances that you will have serious health issues and have to go to the hospital. Take your medicines every day as directed. ??? Joining a cardiac rehab program. Cardiacrehab is a program that gives you the skills you need to manage both COPD and heart disease in yourdaily life. Ask your provider if this program is available for you. ?? Last Reviewed Date: 2021 ?? 2089-5636 [employer]. All rights reserved. This information is not intended as a substitute for professional medical care. Always follow your healthcare professional's instructions. ?? * BHSPowerscrialfonso , CIS S: TRANSCRIALFONSO Hwang MD, Jose Ngo: VERIFY Event Display: Result: Authored Date: [id number] Chest 2 Views Frontal and Lat Hx of Present Illness: c o sob with chest tightness; Reason: Other:; Chest Pain; Clinical Question(s): Other: COMPARISON: X-ray from 12/18/2021 FINDINGS: LINES AND TUBES: None. LUNGS AND PLEURA: Chronic left lung volume loss with scarring and/or atelectasis involving the left lower lobe and/orlingula identical to prior study. The right lung is clear and mildly hyperinflated. No pleural effusion. No pneumothorax. HEART, MEDIASTINUM AND JOSE CARLOS: Heart is normal in size. The heart and mediastinum is shifted towards the left, unchanged. Normal mediastinal and hilar contour. BONES AND SOFT TISSUES: No acute abnormality. IMPRESSION: Chronic volume loss with scarring and/or atelectasis in the left lower lobe. No superimposed acute abnormality. WSN: [id number] Ordering Physician: Gurinder Finley Dictated By: Jose Hwang MD Dictated Date/Time: 04/10/22 8:14 pm Reviewed By: Jose Hwang MD Signed By: Jose Hwang MD Signed Date/Time: 04/10/22 8:14 pm Transcribed By: JUSTICE Transcribed Date/Time: 04/10/22 8:13 pm Patient Care team information Care Team Personnel Name: Francoise Black RN Position: [facility] RN Member Role: Primary Care Nurse Name: Chiqui Stoll RN Position: [facility] RN Member Role: Primary Care Nurse Name: Robert Feliz MD Position: [facility] Primary Care Physician Member Role: PCP Address: Address: [address] [place] [address]- Name: Abi SPARKS, Sun Position: [facility] ED RN W/OE and Tasks Member Role: Patient Care Provider Name: Shirlene Hastings Position: [facility] ED TA [facility] Member Role: Patient Care Provider Name: Layla Mccarthy MD Position: [facility] ED Medicine MD Member Role: ED Attending Physician Address: Address: [address] [place] [address] [place] [address]- Care Team Related Persons Name: RAMIRO MARR Address: [address] [address]
--- OUTSIDE RECORDS SUMMARY | 2023-08-31 08:20 | XMS_ITS | Continuity of Care Document ---
Author Organization [facility] Address [address] [place] [address]- Care Team Providers Care Investigations Chief Name Role Phone Tray BROWN, Robert Anthony Primary Care Physician [place] [facility] [place] 02/[place]/23 [facility] [address] [place] [address]- Attending Physician: Adithya Sheth Admitting Physician: Adithya Sheth Referring Physician: AdmAdithya de la torre Allergies, Adverse Reactions, Alerts Substance Reaction Severity Status codeine Active tetanus toxoid Active sulfa drugs Active Fish Active Immunizations Given and Recorded Vaccine Date Status Refusal Reason [id number] 12y+ bivalent booster vax 08/15/22 Recorded Influenza Virus Vaccine (oldterm) 1 02/03/22 Recor ded SARS-CoV-2 mRNA (jeptwar-yoqy-oupba) vax 08/06/21 Recorded SARS-CoV-2 (COVID-19) mRNA BNT-162b2 [...] 360 mL, 5 Refills, 01/18/23 8:59:00 EDT, [facility] #[id number], J44.9, 150, cm, 01/11/23 10:59:00 EDT, Height, 61, kg, 04/17/22 11:31:00 EST, Dry Weight Start Date: 01/18/23 Status: Ordered bisoprolol 5 mg oral tablet See Instructions, TAKE 1/2 TABLET DAILY, # 45 tablet, 1 Refills, Maintenance, 09/04/22 16:11:00 EDT, [facility], 150, cm, 08/28/22 9:37:00 EDT, Height, 61, kg, 04/17/22 11:31:00 EST, Dry Weight Start Date: 09/04/22 Status: Ordered clopidogrel 75 mg oral tablet 1, tablet, By Mouth, Daily, # 90 Unknown, Refills 0, Tot. Refills 0, Maintenance, 10/19/22 15:23:00EDT, Route to Pharmacy Electronically, [facility], 150, cm, 08/28/22 9:37:00 EDT, Height, 61, kg, 04/17/22 11:31:00 EST, Dry Weight Start Date: 10/19/22 Status: Ordered Lasix 40 mg oral tablet 1, tablet, By Mouth, Daily, # 90 Unknown, Refills 3, Maintenance, 02/08/23 16:25:00 EDT, Route to Pharmacy Electronically, [facility], 150, cm, 01/11/23 10:59:00 EDT, Height, [...] 12/22/22 10:35:00 EDT, Route to Pharmacy Electronically, [facility] #[id number], Partial fill upon patient req... Start Date: 12/22/22 Status: Ordered ProAir HFA 90 mcg/inh inhalation aerosol with adapter 2, puffs, Inhalation, 4 times a day, PRN, # 1 each, Refills 5, Tot. Refills 5, Maintenance, 10/17/21 15:25:00 EDT, Route to Pharmacy Electronically, [id number], [facility] #[id number], 151, cm, 09/29/21 13:12:00 EDT, Hei... Start [...] mL, 5 Refills, Maintenance, 02/11/23 9:46:00 EDT, [facility] #[id number], USE 4 ML VIANEBULIZER TWICE DAILY USE WITH 0.5% TOGETHER IN VIA... Start Date: 02/11/23 Status: Ordered Trelegy Ellipta 200 mcg-62.5 mcg-25 mcg/inh inhalation powder 1 puffs, Inhalation, Daily, at the same time every day, j44.9, # 1 each, 6 Refills, Maintenance, 10/14/22 11:12:00 EDT, Powder, [facility] #[id number], Partial fill upon patient request if the [...] pulmonary artery branch probably reflecting chronic thrombus.. [id number]-Zzqzpbkef as lung mass. S/P R-CHOP x 6 cycles. Social History Social History Type Response Smoking Status Former smoker entered on: 09/06/14 Sex Patient Care team information Care Team Personnel Name: Manuel Mayes MD Position: [facility] Physician - Pulm/Critical Care Member Role: Skiver Uppers Or Linings Address: Address: [address] [place] [address] [address] [facility] [place] [address]- Name: Kenneth Chowdary MD Position: [facility] Cardiology MD Member Role: Optometrist Owner Address: Address: [address] [place] [address] [address] [facility] [place] [address]- [place] Name: Robert Feliz MD Position: [facility] Physician - Primary Care Member Role: PCP Address: Address: [address] [place] [address]- [place] Name: Georgette Silva Position: [facility] Reverse Unit Operator Member Role: Associate Professor Of Theatre Name: Epi Turner Member Role: Neurologist Name: Zi Monge MD Position: Reference Physician Member Role: Wire Walker Address: Address: [facility] [address] [facility] [place] [address]- Care Team Related Persons Name: PARENTRAMIRO Address: home [address] [place] [address]
--- OUTSIDE RECORDS SUMMARY | 2023-08-31 08:20 | XMS_ITS | Continuity of Care Document ---
Author Organization [facility] Address [address] [place] [address]- Care Team Providers Care Liquor Bridge Operator Helper Name Role Phone Tray BROWN, Robert Anthony Primary Care Physician Encounter [facility] [place] Date(s): 10/17/21 - 11/16/21 [facility] [address] [place] [id number] Allergies, Adverse Reactions, Alerts Substance Reaction Severity Status codeine Active tetanus toxoid Active sulfa drugs Active Immunizations Given and Recorded Vaccine Date Status Refusal Reason SARS-CoV-2 mRNA (qkuyekb-lwav-wpoqp) vax 08/06/21 Recorded SARS-CoV-2 (COVID-19) mRNA BNT-162b2 [...] EVERY TREATMENT., # 360 mL, 5 Refills, [facility] #[id number], 151, cm, 09/29/21 13:12:00 EDT, Height, 61.69, kg, 09/29/21 13:11:00 EDT, Dry Weight Start Date: 11/13/21 Status: Ordered albuterol 0.083% inhalation solution 3 mL, Inhalation, Every 6 hours, USE ACAPELLA DEVICE AFTER EVERY TREATMENT., # 360 mL, 0 Refills, [facility] #[id number], 151, cm, 06/11/21 13:48:00 EST, Height Start Date: 08/18/21 Status: Ordered albuterol 5 mg/mL (0.5%) inhalation solution 0.5 mL = 2.5 mg, Inhalation, Every 6 hours, PRN for wheezing, # 20 mL, 11 Refills, Maintenance, 08/26/21 14:10:00 EDT, Solution, [facility] #[id number], Partial fill upon patient request if the prescription is for a schedule II opioid drug., 151,... Start Date: 08/26/21 Status: Ordered amoxicillin 500 mg oral capsule 4 capsule = 2,000 mg, By Mouth, Once, take 4 capsules prior to dental procedure, # 4 capsule, 5 Refills, Soft Stop, 05/06/21 17:27:00 EST, [facility] #[id number], 151, cm, 05/05/21 12:08:00 EST,Height Start Date: [...] 3 Refills, Maintenance, 06/12/21 13:52:00 EST, Tablet, [facility], 151, cm, 06/11/21 13:48:00 EST, Height Start Date: 06/12/21 Stop Date: 06/07/22 Status: Ordered clopidogrel 75 mg oral tablet 1, tablet, By Mouth, Daily, # 90 Unknown, Refills 3, Route to Pharmacy Electronically, [facility], 151, cm, 09/29/21 13:12:00 EDT, Height, 61.69, kg, 09/29/21 13:11:00 EDT, Dry Weight Start Date: 11/05/21 Status: Ordered Hyper-Don 7% inhalation solution 4 mL = 0.28 Gm, Neb, 2 times a day, take with 0.5ml = 2.5 mg albuterol (add hypersal 4ml to 0.5ml albuterol) twice a day J47.0, # 720 mL, 1 Refills, Maintenance, 07/28/22 9:58:00 EDT, [facility] #[id number], J47.0 bronchiectasis, 4 mL Neb 2 times... Start Date: 07/28/22 Status: Ordered Hyper-Don 7% inhalation solution 4 mL = 0.28 Gm, Neb, 2 times a day, take with 0.5ml = 2.5 mg albuterol (add hypersal 4ml to 0.5ml albuterol) twice a day, # 720 mL, 1 Refills, Hard Stop 07/28/22 9:58:00 EDT, 08/02/21 9:58:00 EDT, [facility], J47.0 bronchiectasis, 151, cm,... Start [...] Unknown, Refills 3, Route to Pharmacy Electronically, [facility], 151, cm, 09/29/21 13:12:00 EDT, Height, 61.69, kg, 09/29/21 13:11:00 EDT, Dry Weight Start Date: 11/05/21 Status: Ordered losartan 25 mg oral tablet 12.5 mg, 0.5, tablet, By Mouth, Daily, Take 0.5 tablet (12.5mg) daily, # 45 tablet, Refills 3, Tot.Refills 3, Maintenance, 06/12/21 13:52:00 EST, Route to Pharmacy Electronically, [facility], 151, cm, 06/11/21 13:48:00 EST, Height [...] 10/17/21 15:25:00 EDT, Route to Pharmacy Electronically, [id number], [facility] #[id number], 151, cm, 09/29/21 13:12:00 EDT, Hei... Start Date: 10/17/21 Status: Ordered Sodium Chloride, Inhalation 0.9% inhalation solution 4 mL = 0.036 Gm, Neb, 2 times a day, use with 0.5% albuterol solution together in nebulizer, # 240 mL, 6 Refills, Maintenance, 06/12/21 19:39:00 EST, [facility] #[id number], Partial fill upon patient request if the [...] 1-49% stenosis; LICA 1-49% stenosis 4Admission to [facility] for CHF 11/2020. Cardiac MRI: LVEF 44%; 12/16/20 echo at [facility]: LVEF=40-45% [address]67-Znnbjfxmc as lung mass. S/P R-CHOP x 6 cycles. Social History Social History Type Response Smoking Status Former smoker entered on: 09/06/14 Sex
--- OUTSIDE RECORDS SUMMARY | 2023-08-31 08:20 | XMS_ITS | Continuity of Care Document ---
Author Organization [facility] Address [address] [place] [address]- Care Team Providers Care Sales Project Coordinator Name Role Phone Tray BROWN, Robert Anthony Primary Care Physician [place] [facility] [place] 04/28/22 - 05/28/22 [facility] [address] [place] [address]- [place] Allergies, Adverse Reactions, Alerts Substance Reaction Severity Status codeine Active Fish Active tetanus toxoid Active sulfa drugs Active Immunizations Given and Recorded Vaccine Date Status Refusal Reason Influenza Virus Vaccine (oldterm) 1 02/03/22 Recor ded SARS-CoV-2 mRNA (nttrqvr-meuj-ljdef) vax 08/06/21 Recorded SARS-CoV-2 (COVID-19) mRNA BNT-162b2 [...] EVERY TREATMENT., # 360 mL, 5 Refills, [facility] #[id number], 151, cm, 09/29/21 13:12:00 EDT, Height, 61.69, [...] 10/17/21 15:25:00 EDT, Route to Pharmacy Electronically, [id number], [id number], 151, cm, 09/29/21 13:12:00 EDT, Hei... Start Date: 10/17/21 Status: Ordered Sodium Chloride, Inhalation 0.9% inhalation solution See Instructions, USE 4 ML VIA NEBULIZER TWICE DAILY USE WITH 0.5% VIA INHALER SOLUTION TOGETHER INVIA NEBULIZER, # 300 mL, 0 Refills, Maintenance, 04/28/22 9:38:00 EST, [facility] #[id number],25, USE 4 ML VIA NEBULIZER TWICE DAILY [...] review meeting GFR criteria 5Admission to [facility] [place] for CHF 11/2020. Cardiac MRI: LVEF 44%; 12/16/20 echo at [facility] [place]: LVEF=40-45% [id number]-Ecdxikrop as lung mass. S/P R-CHOP x 6 cycles. Social History Social History Type Response Smoking Status Former smoker entered on: 09/06/14 Sex Patient Care team information Care Team Personnel Name: Francoise Black RN Position: S RN Member Role: Primary Care Nurse Name: Dodie SPARKS, Chiqui Position: [facility] RN Member Role: Primary Care Nurse Name: Tray BROWN, Robert Anthony Position: [facility] Primary Care Physician Member Role: PCP Address: Address: [address] [place] [address]- Care Team Related Persons Name: RAMIRO MARR Address: home [address] [place] [address]
--- OUTSIDE RECORDS SUMMARY | 2023-08-31 08:20 | XMS_ITS | Continuity of Care Document ---
Author Organization [facility] Zac lt Address [address] [place] [address]- Care Team Providers Care Triage Technician Name Role Phone Tray BROWN, Robert Anthony Primary Care Physician [phone] [place] [facility] Date(s): 06/29/23 - 07/29/23 [facility] Adult [address] [place] [address]- Allergies, Adverse Reactions, Alerts Substance Reaction Severity [...] virus vaccine, inactivated 6 02/09/12 Re corded [id number] 12y+ bivalent booster vax 08/15/22 Recorded Influenza Virus Vaccine (oldterm) 7 02/03/22 Recor ded SARS-CoV-2 mRNA (leapqad-ghfy-kgwuv) vax 08/06/21 Recorded SARS-CoV-2 (COVID-19) mRNA BNT-162b2 [...] Comment: [06/19/2016] [facility] 7Result Comment: influenza at [facility] 8Result Comment: [06/19/2016] [facility] 9Result Comment: [06/19/2016] [facility] 10Result Comment: [06/19/2016] [facility] Medications albuterol 0.083% inhalation solution 3 mL, Inhalation, Every 6 hours, USE ACAPELLA DEVICE AFTER EVERY TREATMENT. J44.9, # 360 mL, 5 Refills, 01/18/23 8:59:00 EDT, [facility] #[id number], J44.9, 150, cm, 01/11/23 10:59:00 EDT, Height, 61, kg, 04/17/22 11:31:00 EST, Dry Weight Start Date: 01/18/23 Status: Ordered bisoprolol 5 mg oral tablet See Instructions, TAKE 1/2 TABLET DAILY, # 45 Unknown, 0 Refills, Maintenance, 02/22/23 7:49:00 EDT, [facility], 150, cm, 01/11/23 10:59:00 EDT, Height, [...] Refills, Soft Stop, 07/19/23 9:46:00 EDT, Patch, [facility]/pharm[facility] #[id number], Partial fill upon patient request if [...] 10/17/21 15:25:00 EDT, Route to Pharmacy Electronically, [id number], [facility] #[id number], 151, cm, 09/29/21 13:12:00 EDT, Hei... Start [...] mL, 5 Refills, Maintenance, 02/11/23 9:46:00 EDT, [facility] #[id number], USE 4 ML VIANEBULIZER TWICE DAILY USE WITH 0.5% TOGETHER IN VIA... Start Date: 02/11/23 Status: Ordered traMADol 50 mg oral tablet 1 tablet = 50 mg, By Mouth, Every 12 hours, PRN for pain, # 30 tablet, 5 Refills, Acute 01/06/24 10:48:00 EDT, 07/06/23 10:47:00 EDT, Tablet, [facility]/pharmacy #[id number], Partial fill upon patient request if [...] pulmonary artery branch probably reflecting chronic thrombus.. 06887-Ucxwwyral as lung mass. S/P R-CHOP x 6 cycles. Social History Social History Type Response Smoking Status Former smoker entered on: 09/06/14 Sex Patient Care team information Care Team Personnel Name: Manuel Mayes MD Position: [facility] Physician - Pulm/Critical Care Member Role: Refractory Mixer Address: Address: [address] [place] [address] [address] [facility] [place] [address]- Name: Kenneth Chowdary MD Position: [facility] Cardiology MD Member Role: Medical Services Coordinator Address: Address: [address] [place] [address] [address] [facility] [place] [address]- Name: Robert Feliz MD Position: [facility] Physician - Primary Care Member Role: PCP Address: Address: [address] [place] [address]- [place] Name: Georgette Silva Position: [facility] [place] Product Safety Test Engineer Member Role: Finance Associate Name: Epi Turner Member Role: Neurologist Name: Mariposa BROWN, Zi Méndez Position: Reference Physician Member Role: Want Ad Clerk Address: Address: [address] [place] [address] [address] [facility] [place] [place] [address]- [place] Care Team Related Persons Name: RAMIRO MARR Address: home [address] [place] [address]
--- OUTSIDE RECORDS SUMMARY | 2023-08-31 08:20 | XMS_ITS | Continuity of Care Document ---
Author Organization [facility] Address [address] [place] [phone]- Care Team Providers Care Stopper Grinder Name Role Phone Tray BROWN, Robert Anthony Primary Care Physician [phone] Encounter [facility] [place] Date(s): 09/03/22 - 10/03/22 [facility] [address] [place] [address]- [place] Allergies, Adverse Reactions, Alerts Substance Reaction Severity Status codeine Active tetanus toxoid Active sulfa drugs Active Fish Active Immunizations Given and Recorded Vaccine Date Status Refusal Reason [id number] 12y+ bivalent booster vax 08/15/22 Recorded Influenza Virus Vaccine (oldterm) 1 02/03/22 Recor ded SARS-CoV-2 mRNA (vjovsqz-jngy-vqnyh) vax 08/06/21 Recorded SARS-CoV-2 (COVID-19) mRNA BNT-162b2 [...] 06/20/12 Recorde d 1Result Comment: influenza at [facility] 2Location History: Agustina Albert 3Location History: AGUSTINA 4Result Comment: [06/19/2016] [place] 5Result Comment: [06/19/2016] [place] 6Early/Late Reason: Other : 7Result Comment: [06/19/2016] [place] 8Result Comment: [06/19/2016] riverbend 9Result Comment: [06/19/2016] [place]bend 10Result Comment: [06/19/2016] [place] Medications albuterol 0.083% inhalation solution 3 mL, Inhalation, Every 6 hours, USE ACAPELLA DEVICE AFTER EVERY TREATMENT., # 360 mL, 5 Refills, [facility] #[id number], 151, cm, 09/29/21 13:12:00 EDT, Height, 61.69, kg, 09/29/21 13:11:00 EDT, Dry Weight Start Date: 11/13/21 Status: Ordered bisoprolol 5 mg oral tablet See Instructions, TAKE 1/2 TABLET DAILY, # 45 tablet, 1 Refills, Maintenance, 09/04/22 16:11:00 EDT, [facility], 150, cm, 08/28/22 9:37:00 EDT, Height, 61, kg, 04/17/22 11:31:00 EST, Dry Weight Start Date: 09/04/22 Status: Ordered clopidogrel 75 mg oral tablet 1, tablet, By Mouth, Daily, # 90 Unknown, Refills 0, Maintenance, 09/01/22 10:17:00 EDT, Route to Pharmacy Electronically, [facility], 150, cm, 08/28/22 9:37:00 EDT, Height, [...] Refills 3, [facility] Electronically, [facility], 151, cm, 09/29/21 13:12:00 EDT, Height, 61.69, kg, 09/29/21 13:11:00 EDT, Dry Weight Start Date: 11/05/21 Status: Ordered losartan 25 mg oral tablet See Instructions, TAKE 1/2 TABLET DAILY, # 45 tablet, 1 Refills, Maintenance, 09/04/22 16:13:00 EDT, [facility], 150, cm, 08/28/22 9:37:00 EDT, [...] 10/17/21 15:25:00 EDT, Route to Pharmacy Electronically, [id number], [facility] #[id number], 151, cm, 09/29/21 13:12:00 EDT, Hei... Start Date: 10/17/21 Status: Ordered Sodium Chloride, Inhalation 0.9% inhalation solution See Instructions, USE 4 ML VIA NEBULIZER TWICE DAILY USE WITH 0.5% VIA INHALER SOLUTION TOGETHER INVIA NEBULIZER, # 300 mL, 0 Refills, Maintenance, 04/28/22 9:38:00 EST, [facility] #[id number],25, USE 4 ML VIA NEBULIZER TWICE DAILY [...] chart review meeting GFR criteria 6Admission to [facility] for [place]F 11/2020. Cardiac MRI: LVEF 44%; 12/16/20 echo at [facility]: LVEF=40-45% 8Per CT w/contrast 12/19/2021: Irregular partially calcified tissue along the distal left main pulmonary artery extending along the regular small caliber left lower lobe pulmonary artery branch probably reflecting chronic thrombus.. 44385-Taprtnumr as lung mass. S/P R-CHOP x 6 cycles. Social History Social History Type Response Smoking Status Former smoker entered on: 09/06/14 Sex Patient Care team information Care Team Personnel Name: Francoise Black RN Position: [facility] RN Member Role: Primary Care Nurse Name: Chiqui Stoll RN Position: S RN Member Role: Primary Care Nurse Name: Tray BROWN, Robert Anthony Position: [facility] Physician - Primary Care Member Role: PCP Address: Address: [address] [place] [address]- Care Team Related Persons Name: RAMIRO MARR Address: home [address] [place] [address]
--- OUTSIDE RECORDS SUMMARY | 2023-08-31 08:20 | XMS_ITS | Continuity of Care Document ---
Author Organization [facility] Zac lt Address [address] [place] [address]- Care Team Providers Care Electrician Marine Name Role Phone Tray BROWN, Robert Anthony Primary Care Physician [place] [facility] 12/30[place]21 - 01/29/22 [facility] Adult [address] [place] [address]- Attending Physician: AdmAdithya de la torre Admitting Physician: AdmtrAdithya Referring Physician: AdmtrAdithya Allergies, Adverse Reactions, Alerts Substance Reaction Severity Status codeine Active tetanus toxoid Active sulfa drugs Active Immunizations Given and Recorded Vaccine Date Status Refusal Reason SARS-CoV-2 mRNA (ygojvbo-fbll-topcf) vax 08/06/21 Recorded SARS-CoV-2 (COVID-19) mRNA BNT-162b2 [...] EVERY TREATMENT., # 360 mL, 5 [facility], [id number], 151, cm, 09/29/21 13:12:00 EDT, Height, 61.69, kg, 09/29/21 13:11:00 EDT, Dry Weight Start Date: 11/13/21 Status: Ordered bisoprolol 5 mg oral tablet 0.5 tablet = 2.5 mg, By Mouth, Daily, # 45 tablet, 3 Refills, Maintenance, 06/12/21 13:52:00 EST, Tablet, [facility], 151, cm, 06/11/21 13:48:00 EST, Height Start Date: 06/12/21 Stop Date: 06/07/22 Status: Ordered clopidogrel 75 mg oral tablet 1, tablet, By Mouth, Daily, # 90 Unknown, Refills 3, Route to Pharmacy Electronically, [facility], 151, cm, 09/29/21 13:12:00 EDT, Height, [...] mL, 1 Refills, Maintenance, 07/28/22 9:58:00 EDT, [facility] #[id number], J47.0 bronchiectasis, 4 mL Neb 2 times... Start Date: 07/28/22 Status: Ordered Lasix 40 mg oral tablet 1, tablet, By Mouth, Daily, # 90 Unknown, Refills 3, [facility] to [facility] Electronically, [facility], 151, cm, 09/29/21 13:12:00 EDT, Height, 61.69, kg, 09/29/21 13:11:00 EDT, Dry Weight Start Date: 11/05/21 Status: Ordered losartan 25 mg oral tablet 12.5 mg, 0.5, tablet, By Mouth, Daily, Take 0.5 tablet (12.5mg) daily, # 45 tablet, Refills 3, Tot.Refills 3, Maintenance, 06/12/21 13:52:00 EST, Route to Pharmacy Electronically, [facility], 151, cm, 06/11/21 13:48:00 EST, Height [...] 10/17/21 15:25:00 EDT, Route to Pharmacy Electronically, [id number], [facility] #[id number], 151, cm, 09/29/21 13:12:00 EDT, Hei... Start Date: 10/17/21 Status: Ordered Sodium Chloride, Inhalation 0.9% inhalation solution 4 mL = 0.036 Gm, Neb, 2 times a day, use with 0.5% albuterol solution together in nebulizer, # 240 mL, 6 Refills, Maintenance, 06/12/21 19:39:00 EST, [facility] #[id number], Partial fill upon patient request if the [...] chart review meeting GFR criteria 5Admission to [facility] 11/2020. Cardiac MRI: LVEF 44%; 12/16/20 echo at [facility]: LVEF=40-45% [id number]-Qvlcpleju as lung mass. S/P R-CHOP x 6 cycles. Social History Social History Type Response Smoking Status Former smoker entered on: 09/06/14 Sex Patient Care team information Personnel Name: Tray BROWN, Robert Anthony Address: Address: [address] [place] [id number]
--- OUTSIDE RECORDS SUMMARY | 2023-08-31 08:20 | XMS_ITS | Continuity of Care Document ---
Author Organization [facility] Address [address] [place] [address]- Care Team Providers Care Washcloth Folder Name Role Phone Tray BROWN, Robert Anthony Primary Care Physician Encounter [facility] [place] Date(s): 06/18/20 - 07/18/20 [facility] [address] [place] [address]- Allergies, Adverse Reactions, Alerts Substance Reaction Severity [...] 3 Refills, Maintenance, 06/27/20 15:48:00 EST, Solution, [facility] #[id number], 151, cm, 02/05/20 7:35:00 EDT, Height Start Date: 06/27/20 Status: Ordered amoxicillin 500 mg oral capsule 4 capsule = 2,000 mg, By Mouth, Once, take 4 capsules prior to dental procedure, # 4 capsule, 0 Refills, Soft Stop, 12/27/19 12:56:00 EDT, [facility] #06014, 151, cm, 11/22/19 11:48:00 EDT,Height, 65.4, kg, 05/02/18 11:04:00 EST, Dry Weight Start Date: 12/27/19 Status: Ordered aspirin 81 mg oral tablet, chewable 81 mg, 1, tablet, By Mouth, Daily, # 90 tablet, Refills 3, Tot. Refills 3, Maintenance, 02/05/20 7:58:00 EDT, Route to Pharmacy Electronically, [facility] #[id number], 151, cm, 02/05/20 7:35:00 EDT, Height, 65.4, kg, 05/02/18 11:04:00 EST, Dry We... Start Date: 02/05/20 Status: Ordered meloxicam 7.5 mg oral tablet 1 tablet, By Mouth, Daily, # 90 tablet, 0 Refills, Maintenance, 07/01/20 12:15:00 EST, [facility] #39342, 151, cm, 02/05/20 7:35:00 EDT, Height Start [...] 05/17/19 14:49:00 EST, Route to Pharmacy Electronically, [id number], [facility] #[id number], 151, cm, 05/17/19 14:23:00 EST, Hei... Start [...] 05/07/20 13:57:00 EST, Route to Pharmacy Electronically, [facility] #[id number], 151, cm, 02/05/20 7:35:00 EDT, Height Start [...]
--- OUTSIDE RECORDS SUMMARY | 2023-08-31 08:20 | XMS_ITS | Continuity of Care Document ---
Author Organization [facility] Address [address] [place] [address]- Care Team Providers Care Wet Sander Name Role Phone Tray BROWN, Robert Anthony Primary Care Physician [place] [facility] [place] Date(s): 05/13/22 - 06/12/22 [facility] [address] [place] [address]- Attending Physician: Adithya Sheth Admitting Physician: AdmAdithya de la torre Referring Physician: AdmtrAdithya Allergies, Adverse Reactions, Alerts Substance Reaction Severity Status codeine Active tetanus toxoid Active sulfa drugs Active Fish Active Immunizations Given and Recorded Vaccine Date Status Refusal Reason Influenza Virus Vaccine (oldterm) 1 02/03/22 Recor ded SARS-CoV-2 mRNA (vrpgftt-xlis-gpcbr) vax 08/06/21 Recorded SARS-CoV-2 (COVID-19) mRNA BNT-162b2 [...] EVERY TREATMENT., # 360 mL, 5 Refills, [facility] #[id number], 151, cm, 09/29/21 13:12:00 EDT, Height, 61.69, [...] 10/17/21 15:25:00 EDT, Route to Pharmacy Electronically, [id number], [facility] #[id number], 151, cm, 09/29/21 13:12:00 EDT, Hei... Start Date: 10/17/21 Status: Ordered Sodium Chloride, Inhalation 0.9% inhalation solution See Instructions, USE 4 ML VIA NEBULIZER TWICE DAILY USE WITH 0.5% VIA INHALER SOLUTION TOGETHER INVIA NEBULIZER, # 300 mL, 0 Refills, Maintenance, 04/28/22 9:38:00 EST, [facility] #[id number],25, USE 4 ML VIA NEBULIZER TWICE DAILY [...] chart review meeting GFR criteria 5Admission to [facility] [place] for [place]F 11/2020. Cardiac MRI: LVEF 44%; 12/16/20 echo at [facility] [place]: LVEF=40-45% [id number]-Iuonznbtu as lung mass. S/P R-CHOP x 6 cycles. Social History Social History Type Response Smoking Status Former smoker entered on: 09/06/14 Sex Note * Event Display: Non [facility] Results Authored Date: Patient Care team information Care Team Personnel Name: Francoise Black RN Position: [facility] RN Member Role: Primary Care Nurse Name: Chiqui Stoll RN Position: [facility] RN Member Role: Primary Care Nurse Name: Robert Feliz MD Position: [facility] Primary Care Physician Member Role: PCP Address: Address: [address] [place] [address]- Care Team Related Persons Name: RAMIRO MARR Address: home [address] [place] [address]
--- OUTSIDE RECORDS SUMMARY | 2023-08-31 08:20 | XMS_ITS | Continuity of Care Document ---
Author Organization [facility] Address [address] [place] [address]- Care Team Providers Care Overlock Collar Setter Name Role Phone Tray BROWN, Robert Anthony Primary Care Physician [place] [facility] [place] - 06/03/[address] [facility] [address] [address]- [facility] Attending Physician: AdmAdithya de la torre Admitting Physician: AdmtrAdithya Referring Physician: Admtr, Ar8 [...] 23-valent vaccine 9 06/20/12 Recorded 1Location History: [facility]lo Albert 2Location History: [facility] 3Result Comment: [06/19/2016] ABBY 4Result Comment: [06/19/2016] [...] 1 Refills, Maintenance, 06/01/19 12:03:00 EST, Tablet, [facility] #[id number], 151, cm, 05/23/19 11:27:00 EST, Height, 65.4, [...] 10/03/18 15:01:00 EDT, Route to Pharmacy Electronically, [id number], [facility] [address]39, J47.9 Start Date: 10/03/18 Status: Ordered ProAir HFA 90 mcg/inh inhalation aerosol with adapter 2, puffs, Inhalation, 4 times a day, PRN, # 1 each, Refills 6, Tot. Refills 6, Maintenance, 05/17/19 14:49:00 EST, Route to Pharmacy Electronically, [id number], [facility] #[id number], 151, cm, 05/17/19 14:23:00 EST, Hei... Start [...]
--- OUTSIDE RECORDS SUMMARY | 2023-08-31 08:20 | XMS_ITS | Continuity of Care Document ---
Author Organization [facility] Address [address] [address]- Care Team Providers Care Stenotype Machine Operator Name Role Phone Tray BROWN, Robert Anthony Primary Care Physician [phone] Encounter [facility] Date(s): 10/14/22 - 11/13/22 [facility] [address] [address]- Allergies, Adverse Reactions, Alerts Substance Reaction Severity Status codeine Active tetanus toxoid Active sulfa drugs Active Fish Active Immunizations Given and Recorded Vaccine Date Status Refusal Reason [id number] 12y+ bivalent booster vax 08/15/22 Recorded Influenza Virus Vaccine (oldterm) 1 02/03/22 Recor ded SARS-CoV-2 mRNA (fdtjrxt-bzuo-cweqw) vax 08/06/21 Recorded SARS-CoV-2 (COVID-19) mRNA BNT-162b2 [...] 06/20/12 Sigifredo anderson 1Result Comment: influenza at [facility] 2Location History: Agustina Albert 3Location History: MANJUS 4Result Comment: [06/19/2016] [place] 5Result Comment: [06/19/2016] [place] 6Early/Late Reason: Other : 7Result Comment: [06/19/2016] [place] 8Result Comment: [06/19/2016] riverbend 9Result Comment: [06/19/2016] [place]bend 10Result Comment: [06/19/2016] [place] Medications albuterol 0.083% inhalation solution 3 mL, Inhalation, Every 6 hours, USE ACAPELLA DEVICE AFTER EVERY TREATMENT., # 360 mL, 5 Refills, [facility] #[id number], 151, cm, 09/29/21 13:12:00 EDT, Height, 61.69, kg, 09/29/21 13:11:00 EDT, Dry Weight Start Date: 11/13/21 Status: Ordered bisoprolol 5 mg oral tablet See Instructions, TAKE 1/2 TABLET DAILY, # 45 tablet, 1 Refills, Maintenance, 09/04/22 16:11:00 EDT, [facility], 150, cm, 08/28/22 9:37:00 EDT, Height, 61, kg, 04/17/22 11:31:00 EST, Dry Weight Start Date: 09/04/22 Status: Ordered clopidogrel 75 mg oral tablet 1, tablet, By Mouth, Daily, # 90 Unknown, Refills 0, Tot. Refills 0, Maintenance, 10/19/22 15:23:00EDT, Route to Pharmacy Electronically, [facility], 150, cm, 08/28/22 9:37:00 EDT, Height, 61, kg, 04/17/22 11:31:00 EST, Dry Weight Start Date: 10/19/22 Status: Ordered Lasix 40 mg oral tablet 1, tablet, By Mouth, Daily, # 90 Unknown, Refills 3, Route to Pharmacy Electronically, [facility], 151, cm, 09/29/21 13:12:00 EDT, Height, [...] 10/17/21 15:25:00 EDT, Route to Pharmacy Electronically, [id number], [facility] #[id number], 151, cm, 09/29/21 13:12:00 EDT, Hei... Start Date: 10/17/21 Status: Ordered Sodium Chloride, Inhalation 0.9% inhalation solution See Instructions, USE 4 ML VIA NEBULIZER TWICE DAILY USE WITH 0.5% VIA INHALER SOLUTION TOGETHER INVIA NEBULIZER, # 300 mL, 0 Refills, Maintenance, 04/28/22 9:38:00 EST, [facility] #[id number],25, USE 4 ML VIA NEBULIZER TWICE DAILY USE WITH 0.5... Start Date: 04/28/22 Status: Ordered Trelegy Ellipta 200 mcg-62.5 mcg-25 mcg/inh inhalation powder 1 puffs, Inhalation, Daily, at the same time every day, j44.9, # 1 each, 6 Refills, Maintenance, 10/14/22 11:12:00 EDT, Powder, [facility] #05174, Partial fill upon patient request if the [...] chart review meeting GFR criteria 6Admission to [facility] [place] for [place]F 11/2020. Cardiac MRI: LVEF 44%; 12/16/20 echo at [facility] [place]: LVEF=40-45% 8Per CT w/contrast 12/19/2021: Irregular partially calcified tissue along the distal left main pulmonary artery extending along the regular small caliber left lower lobe pulmonary artery branch probably reflecting chronic thrombus.. 07278-Kelhblztv as lung mass. S/P R-CHOP x 6 cycles. Social History Social History Type Response Smoking Status Former smoker entered on: 09/06/14 Sex Patient Care team information Care Team Personnel Name: Francoise Black RN Position: [facility] RN Member Role: Primary Care Nurse Name: Chiqui Stoll RN Position: [facility] RN Member Role: Primary Care Nurse Name: Robert Feliz MD Position: [facility] Physician - Primary Care Member Role: PCP Address: Address: [address] [place] [address]- Care Team Related Persons Name: RAMIRO MARR Address: home [address] [place] [address]
--- OUTSIDE RECORDS SUMMARY | 2023-08-31 08:20 | XMS_ITS | Continuity of Care Document ---
Author Organization [facility] Zac lt Address [address] [place] [address]- Care Team Providers Care Cabin Worker Name Role Phone Tray BROWN, Robert Anthony Primary Care Physician Encounter [facility] [place] Date(s): 04/22/22 - 05/22/22 [facility] Adult [address] [place] [address]- Allergies, Adverse Reactions, Alerts Substance Reaction Severity Status codeine Active tetanus toxoid Active sulfa drugs Active Fish Active Immunizations Given and Recorded Vaccine Date Status Refusal Reason Influenza Virus Vaccine (oldterm) 1 02/03/22 Recor ded SARS-CoV-2 mRNA (cbicwyi-cmpc-mnkzv) vax 08/06/21 Recorded SARS-CoV-2 (COVID-19) mRNA BNT-162b2 [...] EVERY TREATMENT., # 360 mL, 5 Refills, [facility] #[id number], 151, cm, 09/29/21 13:12:00 EDT, Height, 61.69, [...] 10/17/21 15:25:00 EDT, Route to Pharmacy Electronically, [id number], [facility] #[id number], 151, cm, 09/29/21 13:12:00 EDT, Hei... Start Date: 10/17/21 Status: Ordered Sodium Chloride, Inhalation 0.9% inhalation solution See Instructions, USE 4 ML VIA NEBULIZER TWICE DAILY USE WITH 0.5% VIA INHALER SOLUTION TOGETHER INVIA NEBULIZER, # 300 mL, 0 Refills, Maintenance, 04/28/22 9:38:00 EST, [facility] #[id number],25, USE 4 ML VIA NEBULIZER TWICE DAILY [...] chart review meeting GFR criteria [place] [facility] [place]. Cardiac MRI: LVEF 44%; 12[place]16[place] [facility]F=40-45% [address]-Ufaenkrcw as lung mass. S/P R-CHOP x 6 cycles. Social History Social History Type Response Smoking Status Former smoker entered on: 09/06/14 Sex Patient Care team information Care Team Personnel Name: Francoise Black RN Position: [facility] RN Member Role: Primary Care Nurse Name: Chiqui Stoll RN Position: [facility] RN Member Role: Primary Care Nurse Name: Robert Feliz MD Position: [facility] Primary Care Physician Member Role: PCP Address: Address: [address] [place] [address]- Care Team Related Persons Name: PARENTRAMIRO Address: home [address] [place] [address]
--- OUTSIDE RECORDS SUMMARY | 2023-08-31 08:20 | XMS_ITS | Continuity of Care Document ---
Author Organization [facility] Zac lt Address [address] [place] [address]- Care Team Providers Care Vice President Name Role Phone Robert Feliz MD Primary Care Phys[id number] - 11/11/22 [facility] [address] [place] [address]- Attending Physician: Robert Feliz MD Allergies, Adverse Reactions, Alerts Substance Reaction Severity Status codeine Active tetanus toxoid Active sulfa drugs Active Fish Active Immunizations Given and Recorded Vaccine Date Status Refusal Reason [id number] 12y+ bivalent booster vax 08/15/22 Recorded Influenza Virus Vaccine (oldterm) 1 02/03/22 Recor ded SARS-CoV-2 mRNA (rkbmmza-dexx-brivy) vax 08/06/21 Recorded SARS-CoV-2 (COVID-19) mRNA BNT-162b2 [...] EVERY TREATMENT., # 360 mL, 5 Refills, [facility] #[id number], 151, cm, 09/29/21 13:12:00 EDT, Height, 61.69, kg, 09/29/21 13:11:00 EDT, Dry Weight Start Date: 11/13/21 Status: Ordered bisoprolol 5 mg oral tablet See Instructions, TAKE 1/2 TABLET DAILY, # 45 tablet, 1 Refills, Maintenance, 09/04/22 16:11:00 EDT, [facility], 150, cm, 08/28/22 9:37:00 EDT, Height, 61, kg, 04/17/22 11:31:00 EST, Dry Weight Start Date: 09/04/22 Status: Ordered clopidogrel 75 mg oral tablet 1, tablet, By Mouth, Daily, # 90 Unknown, Refills 0, Tot. Refills 0, Maintenance, 10/19/22 15:23:00EDT, Route to Pharmacy Electronically, [facility], 150, cm, 08/28/22 9:37:00 EDT, Height, 61, kg, 04/17/22 11:31:00 EST, Dry Weight Start Date: 10/19/22 Status: Ordered Lasix 40 mg oral tablet 1, tablet, By Mouth, Daily, # 90 Unknown, Refills 3, Route to Pharmacy Electronically, [facility], 151, cm, 09/29/21 13:12:00 EDT, Height, 61.69, kg, 09/29/21 13:11:00 EDT, Dry Weight Start Date: 11/05/21 Status: Ordered losartan 25 mg oral tablet See Instructions, TAKE 1/2 TABLET DAILY, # 45 tablet, 1 Refills, Maintenance, 09/04/22 16:13:00 EDT, [facility], 150, cm, 08/28/22 9:37:00 EDT, [...] 10/17/21 15:25:00 EDT, Route to Pharmacy Electronically, [id number], [facility] #[id number], 151, cm, 09/29/21 13:12:00 EDT, Hei... Start Date: 10/17/21 Status: Ordered Sodium Chloride, Inhalation 0.9% inhalation solution See Instructions, USE 4 ML VIA NEBULIZER TWICE DAILY USE WITH 0.5% VIA INHALER SOLUTION TOGETHER INVIA NEBULIZER, # 300 mL, 0 Refills, Maintenance, 04/28/22 9:38:00 EST, [facility] #[id number],25, USE 4 ML VIA NEBULIZER TWICE DAILY USE WITH 0.5... Start Date: 04/28/22 Status: Ordered Trelegy Ellipta 200 mcg-62.5 mcg-25 mcg/inh inhalation powder 1 puffs, Inhalation, Daily, at the same time every day, j44.9, # 1 each, 6 Refills, Maintenance, 10/14/22 11:12:00 EDT, Powder, [facility] #[id number], Partial fill upon patient request if the [...] review meeting GFR criteria 6Admission to [facility] [place]. Cardiac MRI: LVEF 44%; 12/16/20 echo at [facility] [place]: LVEF=40-45% 8Per CT w/contrast 12/19/2021: Irregular partially calcified tissue along the distal left main pulmonary artery extending along the regular small caliber left lower lobe pulmonary artery branch probably reflecting chronic thrombus.. 359[address]-Jiifjlyix as lung mass. S/P R-CHOP x 6 cycles. Vital Signs Most recent to oldest [Reference Range]: 1 Height 150.0 cm (11/04/22 11:03 AM) Weight 61.8 kg (11/04/22 11:03 AM) Oxygen Saturation [94-100 %] 96 % (11/04/22 11:03 AM) Pulse Rate [55-90 bpm] 60 bpm (11/04/22 11:03 AM) Body Mass Index [18.5-24.99 kg/m2] 27.47 kg/m2 *H* (11/04/22 11:03 AM) Blood Pressure [90-138/55-84 mm Hg] 117/ 62mm Hg (11/04/22 11:03 AM) Mode of Delivery (Oxygen) Room air (11/04/22 11:03 AM) Blood pressure sites Arm, left (11/04/22 11:03 AM) Weight Obtained Via Standing scale (11/04/22 11:03 AM) Social History Social History Type Response [...] Care Member Role: PCP Address: Address: [address] [place] [address]- Care Team Related Persons Name: RAMIRO MARR Address: home [address] [place] [id number]
--- OUTSIDE RECORDS SUMMARY | 2023-08-31 08:20 | XMS_ITS | Continuity of Care Document ---
Author Organization [facility] Z[facility] Address [address] [place] [address]- Care Team Providers Care Air Brakes Inspector Name Role Phone Tray BROWN, Robert Anthony Primary Care Physician Encounter [facility] Date(s): 10/13/22 - 11/12/22 [facility] Adult [address] [place] [address]- Allergies, Adverse Reactions, Alerts Substance Reaction Severity Status codeine Active tetanus toxoid Active sulfa drugs Active Fish Active Immunizations Given and Recorded Vaccine Date Status Refusal Reason [id number] 12y+ bivalent booster vax 08/15/22 Recorded Influenza Virus Vaccine (oldterm) 1 02/03/22 Recor ded SARS-CoV-2 mRNA (hdjwmnx-vify-eldxd) vax 08/06/21 Recorded SARS-CoV-2 (COVID-19) mRNA BNT-162b2 [...] 06/20/12 Sigifredo anderson 1Result Comment: influenza at [facility] [...] EVERY TREATMENT., # 360 mL, 5 Refills, [facility] #[id number], 151, cm, 09/29/21 13:12:00 EDT, Height, 61.69, kg, 09/29/21 13:11:00 EDT, Dry Weight Start Date: 11/13/21 Status: Ordered bisoprolol 5 mg oral tablet See Instructions, TAKE 1/2 TABLET DAILY, # 45 tablet, 1 Refills, Maintenance, 09/04/22 16:11:00 EDT, [facility], 150, cm, 08/28/22 9:37:00 EDT, Height, 61, kg, 04/17/22 11:31:00 EST, Dry Weight Start Date: 09/04/22 Status: Ordered clopidogrel 75 mg oral tablet 1, tablet, By Mouth, Daily, # 90 Unknown, Refills 0, Tot. Refills 0, Maintenance, 10/19/22 15:23:00EDT, Route to Pharmacy Electronically, [facility], 150, cm, 08/28/22 9:37:00 EDT, Height, 61, kg, 04/17/22 11:31:00 EST, Dry Weight Start Date: 10/19/22 Status: Ordered Lasix 40 mg oral tablet 1, tablet, By Mouth, Daily, # 90 Unknown, Refills 3, Route to Pharmacy Electronically, [facility], 151, cm, 09/29/21 13:12:00 EDT, Height, [...] 10/17/21 15:25:00 EDT, Route to Pharmacy Electronically, [id number], [facility] #[id number], 151, cm, 09/29/21 13:12:00 EDT, Hei... Start Date: 10/17/21 Status: Ordered Sodium Chloride, Inhalation 0.9% inhalation solution See Instructions, USE 4 ML VIA NEBULIZER TWICE DAILY USE WITH 0.5% VIA INHALER SOLUTION TOGETHER INVIA NEBULIZER, # 300 mL, 0 Refills, Maintenance, 04/28/22 9:38:00 EST, [facility] #[id number],25, USE 4 ML VIA NEBULIZER TWICE DAILY USE WITH 0.5... Start Date: 04/28/22 Status: Ordered Trelegy Ellipta 200 mcg-62.5 mcg-25 mcg/inh inhalation powder 1 puffs, Inhalation, Daily, at the same time every day, j44.9, # 1 each, 6 Refills, Maintenance, 10/14/22 11:12:00 EDT, Powder, [facility] #[id number], Partial fill upon patient request if the [...] chart review meeting GFR criteria 6Admission to [facility] for CHF 11/2020. Cardiac MRI: LVEF 44%; 12/16/20 echo at [facility]: LVEF=40-45% 8Per CT w/contrast 12/19/2021: Irregular partially calcified tissue along the distal left main pulmonary artery extending along the regular small caliber left lower lobe pulmonary artery branch probably reflecting chronic thrombus.. 44589-Duycybrxt as lung mass. S/P R-CHOP x 6 cycles. Social History Social History Type Response Smoking Status Former smoker entered on: 09/06/14 Sex Patient Care team information Care Team Personnel Name: Francoise Black RN Position: [facility] RN Member Role: Primary Care Nurse Name: Chiqui Stoll RN Position: [facility] RN Member Role: Primary Care Nurse Name: Robert Feliz MD Position: [facility] Physician - Primary Care Member Role: PCP Address: Address: [address] [place] [address]- Care Team Related Persons Name: RAMIRO MARR Address: home [address] [place] [address]
--- OUTSIDE RECORDS SUMMARY | 2023-08-31 08:21 | XMS_ITS | Summary of Care ---
Author Organization [facility] sp[facility] Address [address] [place] [address]- Care Team Providers Care Charge Entry Name Role Phone AUSTIN PAZ Primary Care Physician Encounter [facility] [id number] Date(s): 03/25/23 - 03/25/23 [facility] [address] [place] [address]- Encounter Diagnosis Amyotrophic lateral sclerosis(Final) - Dysarthria and anarthria(Final) - Discharge Disposition: Discharge Attending Physician: AKILAH GRACIA CCC-SKEIN DRIER, JACK Referring Physician: AUSTIN PAZ Patient Care team information Personnel Name: AUSTIN PAZ Address: Address: [address] [place] [address] [place] [address]-
--- OUTSIDE RECORDS SUMMARY | 2023-08-31 08:21 | XMS_ITS | Continuity of Care Document ---
Author Organization [facility] Zac lt Address [address] [place] [address]- Care Team Providers Care Parking Ramp Attendant Name Role Phone Robert Feliz MD Primary Care Physician [id number] - 04/22/23 [facility] Adult [address] [place] [address]- Encounter Diagnosis Right knee pain(Discharge Diagnosis) - 04/15/23 Attending Physician: Robert Feliz MD Allergies, Adverse [...] virus vaccine, inactivated 6 02/09/12 Re corded [id number] 12y+ bivalent booster vax 08/15/22 Recorded Influenza Virus Vaccine (oldterm) 7 02/03/22 Recor ded SARS-CoV-2 mRNA (jdtehct-lwzl-ntgjk) vax 08/06/21 Recorded SARS-CoV-2 (COVID-19) mRNA BNT-162b2 [...] 360 mL, 5 Refills, 01/18/23 8:59:00 EDT, [facility] #[id number], J44.9, 150, cm, 01/11/23 10:59:00 EDT, Height, [...] 10/17/21 15:25:00 EDT, Route to Pharmacy Electronically, [id number], [facility][id number], 151, cm, 09/29/21 13:12:00 EDT, Hei... Start [...] mL, 5 Refills, Maintenance, 02/11/23 9:46:00 EDT, [facility] #[id number], USE 4 ML VIANEBULIZER TWICE DAILY USE [...] pulmonary artery branch probably reflecting chronic thrombus.. 53067-Uvrwpwbtl as lung mass. S/P R-CHOP x 6 cycles. Diagnosis Diagnosis Type Effective Dates Health Status Cl inical Service Informant Right knee pain Discharge Diagnosis 04/15/23 Vital Signs Most recent to oldest [Reference Range]: 1 Height 150.0 cm (04/15/23 11:02 AM) Social History Social History Type Response Smoking Status Former smoker entered on: 09/06/14 Sex Patient Care team information Care Team Personnel Name: Manuel Mayes MD Position: [facility] Physician - Pulm/Critical Care Member Role: Detail Sergeant Address: Address: [address] [place] [phone]- Name: Kenneth Chowdary MD Position: [facility] Cardiology MD Member Role: Payroll Supervisor Address: Address: [address] [place] [address] [address] [place] [address]- Name: Robert Feliz MD Position: [facility] Physician - Primary Care Member Role: PCP Address: Address: [address] [place] [address]- Name: Georgette Silva Position: [facility] Unit Assembler Member Role: Glass Block Installer Name: Epi Turner Member Role: Neurologist Name: Zi Monge MD Position: Reference Physician Member Role: Structural Analysis Engineer Address: Address: [address] [place] [address] [place] [address]- [place] Care Team Related Persons Name: RAMIRO MARR Address: home [address] [place] [address]
--- OUTSIDE RECORDS SUMMARY | 2023-08-31 08:21 | XMS_ITS | Continuity of Care Document ---
Author Organization [facility] Zac lt Address [address] [place] [address]- Care Team Providers Care Chief Electrician Name Role Phone Robert Feliz MD Primary Care Physician Encounter [facility] Date(s): 02/05/20 - 02/12/20 [facility] Adult [address] [place] [address]- [facility] Attending Physician: Robert Feliz MD Allergies, [...] 0 Refills, Soft Stop, 12/27/19 12:56:00 EDT, [facility] #[id number], 151, cm, 11/22/19 11:48:00 EDT,Height, 65.4, kg, 05/02/18 11:04:00 EST, Dry Weight Start Date: 12/27/19 Status: Ordered aspirin 81 mg oral tablet, chewable 81 mg, 1, tablet, By Mouth, Daily, # 90 tablet, Refills 3, Tot. Refills 3, Maintenance, 02/05/20 7:58:00 EDT, Route to Pharmacy Electronically, [facility] #[id number], 151, cm, 02/05/20 7:35:00 EDT, Height, 65.4, kg, 05/02/18 11:04:00 EST, Dry We... Start Date: 02/05/20 Status: Ordered meloxicam 7.5 mg oral tablet 1 tablet = 7.5 mg, By Mouth, Daily, # 90 tablet, 1 Refills, Maintenance, 01/05/20 8:12:00 EDT, Tablet, [facility] #[id number], 151, cm, 11/22/19 11:48:00 EDT, Height, 65.4, [...] 05/17/19 14:49:00 EST, Route to Pharmacy Electronically, [id number], [facility] #[id number], 151, cm, 05/17/19 14:23:00 EST, Hei... Start [...] oldest [Reference Range]: 1 Height 151 cm (02/05/20 7:35 AM) Weight 66.5 kg (02/05/20 7:35 AM) Oxygen Saturation [94-100 %] 98 % (02/05/20 7:35 AM) Pulse Rate [55-90 bpm] 58 bpm (02/05/20 7:35 AM) Body Mass Index [18.5-24.99] 29.17 *H* (02/05/20 7:35 AM) Blood Pressure [90-138/55-84 mm Hg] 110/ 70mm Hg (02/05/20 7:35 AM) Temperature [96.8-100.4 DegF] 97.7 DegF (02/05/20 7:35 AM) Mode of Delivery (Oxygen) Room air (02/05/20 7:35 AM) Blood pressure sites Arm, left (10/12/20 7:35 AM) Temperature Route Oral (02/05/20 7:35 AM) Weight Obtained Via Standing scale (02/05/20 7:35 AM) Social History Social History Type Response Smoking Status Former smoker entered on: 09/06/14 Sex
--- OUTSIDE RECORDS SUMMARY | 2023-08-31 08:21 | XMS_ITS | Continuity of Care Document ---
Author Organization [facility] Address [address] [address]- Care Team Providers Care Railroad Wheels And Axles Inspector Name Role Phone Tray BROWN, Robert Anthony Primary Care Physician Encounter [facility] Date(s): 05/17/19 - 05/27/19 [facility] [address] [place] [address]- [facility] Attending Physician: Adithya Sheth Admitting Physician: Adithya [...] 6Result Comment: [06/19/2016] [facility]BBY 7Result Comment: [06/19/2016] [facility] 8Result Comment: [06/19/2016] [facility] 9Result Comment: [06/19/2016] ABBY Medications amoxicillin 500 [...] 10/03/18 15:01:00 EDT, Route to Pharmacy Electronically, [id number], [facility] [address]674, J47.9 Start Date: 10/03/18 Status: Ordered ProAir HFA 90 mcg/inh inhalation aerosol with adapter 2, puffs, Inhalation, 4 times a day, PRN, # 1 each, Refills 6, Tot. Refills 6, Maintenance, 05/17/19 14:49:00 EST, Route to Pharmacy Electronically, [id number], [facility] #[id number], 151, cm, 05/17/19 14:23:00 EST, Hei... Start [...]
--- OUTSIDE RECORDS SUMMARY | 2023-08-31 08:21 | XMS_ITS | Summary of Care ---
Author Organization [facility] Address [address] [place] [address]- Care Team Providers Care Resistor Testing Machine Operator Name Role Phone AUSTIN PAZ Primary Care Physician Encounter [facility] [id number] Date(s): 12/17/22 - 12/17/22 [facility] [address] [place] [address]- Encounter Diagnosis Amyotrophic lateral sclerosis(Final) - Dysarthria and anarthria(Final) - Discharge Disposition: Discharge Attending Physician: AKILAH GRACIA CCC-OPTICAL ASSISTANT, JACK Referring Physician: AUSTIN PAZ Patient Care team information Personnel Name: AUSTIN PAZ Address: Address: [address] [place] [address] [place] [address]-
--- OUTSIDE RECORDS SUMMARY | 2023-08-31 08:21 | XMS_ITS | Continuity of Care Document ---
Author Organization [facility] Zac lt Address [address] [place] [address]- Care Team Providers Care Porcelain Slusher Name Role Phone Tray BROWN, Robert Anthony Primary Care Physician [phone] Encounter [facility] Date(s): 05/24/20 - 06/23/20 [facility] Adult [address] [place] [address]- Allergies, Adverse Reactions, Alerts Substance Reaction Severity [...] 0 Refills, Soft Stop, 12/27/19 12:56:00 EDT, [facility] #[id number], 151, cm, 11/22/19 11:48:00 EDT,Height, 65.4, kg, 05/02/18 11:04:00 EST, Dry Weight Start Date: 12/27/19 Status: Ordered aspirin 81 mg oral tablet, chewable 81 mg, 1, tablet, By Mouth, Daily, # 90 tablet, Refills 3, Tot. Refills 3, Maintenance, 02/05/20 7:58:00 EDT, Route to Pharmacy Electronically, [facility] #[id number], 151, cm, 02/05/20 7:35:00 EDT, Height, 65.4, kg, 05/02/18 11:04:00 EST, Dry We... Start Date: 02/05/20 Status: Ordered doxycycline hyclate 100 mg oral tablet 1 tablet = 100 mg, By Mouth, 2 times a day, for 10 days, # 20 tablet, 0 Refills, Acute 06/27/20 13:57:00 EST, 06/17/20 13:57:00 EST, Tablet, [facility][id number], Partial fill upon patient request if the prescription is for a schedule II opioid... Start Date: 06/17/20 Stop Date: 06/27/20 Status: Ordered meloxicam 7.5 mg oral tablet 1 tablet = 7.5 mg, By Mouth, Daily, # 90 tablet, 1 Refills, Maintenance, 01/05/20 8:12:00 EDT, Tablet, [facility] #[id number], 151, cm, 11/22/19 11:48:00 EDT, Height, 65.4, [...] 7:39:59, Compound Start Date: 10/08/16 Status: Ordered predniSONE 10 mg oral tablet See Instructions, 50mg x 2 days, then 40mg x 2 days, then 30mg x 2 days, then 20 mg x 2 days, then 10 mg x 2 days, # 30 tablet, 0 Refills, Acute 06/29/20 13:58:00 EST, 06/17/20 13:57:00 EST, [facility] #[id number], Partial fill upon patient reque... Start Date: 06/17/20 Stop Date: 06/29/20 Status: Ordered ProAir HFA 90 mcg/inh inhalation aerosol with adapter 2, puffs, Inhalation, 4 times a day, PRN, # 1 each, Refills 6, Tot. Refills 6, Maintenance, 05/17/19 14:49:00 EST, Route to Pharmacy Electronically, [id number], [facility] #[id number], 151, cm, 05/17/19 14:23:00 EST, Hei... Start [...] 05/07/20 13:57:00 EST, Route to Pharmacy Electronically, [facility] #[id number], 151, cm, 02/05/20 7:35:00 EDT, Height Start [...]
--- OUTSIDE RECORDS SUMMARY | 2023-08-31 08:21 | XMS_ITS | Continuity of Care Document ---
Author Organization [facility] Zac lt Address [address] [place] [address]- Care Team Providers Care Visual Merchandising Director Name Role Phone Tray BROWN, Robert Anthony Primary Care Physician Encounter [facility] Date(s): 06/10/21 - 07/10/21 [facility] Adult [address] [place] [address]- Allergies, Adverse Reactions, Alerts Substance Reaction Severity [...] 3 Refills, Maintenance, 06/27/20 15:48:00 EST, Solution, [facility] #[id number], 151, cm, 02/05/20 7:35:00 EDT, Height Start [...] 5 Refills, Soft Stop, 05/06/21 17:27:00 EST, [facility] #02809, 151, cm, 05/05/21 12:08:00 EST,Height Start Date: [...] Stop 08/02/21 9:58:00 EDT, 08/07/20 9:58:00 EDT, [facility] #44708, J47.[address] [facility]... Start Date: 08/07/20 Stop Date: 08/02/21 Status: Ordered Hyper-Don 7% inhalation solution 4 mL = 0.28 Gm, Neb, 2 times a day, take with 0.5ml = 2.5 mg albuterol (add hypersal 4ml to 0.5ml albuterol) twice a day, # 720 mL, 1 Refills, Maintenance, 08/02/21 9:58:00 EDT, [facility], J47.0 bronchiectasis, 4 mL Neb [...] 1, tablet, By Mouth, Daily, prescribed by [facility] doctor 12/18/20, # 90 tablet, Refills [...] Mouth, Daily, # 90 tablet, 0 Refills, [facility] #[id number], 151, cm, 12/27/20 8:19:00 EDT, Height Start [...] 01/10/21 13:45:00 EDT, Route to Pharmacy Electronically, [facility] #[id number], Partial fill upon patientrequest if the prescription is for a schedule II op... Start Date: 01/10/21 Status: Ordered ProAir HFA 90 mcg/inh inhalation aerosol with adapter 2, puffs, Inhalation, 4 times a day, PRN, # 1 each, Refills 6, Tot. Refills 6, Maintenance, 08/26/20 14:10:00 EDT, Route to Pharmacy Electronically, [id number], [facility] #[id number], 151, cm, 08/26/20 13:26:00 EDT, Height Start Date: 08/26/20 Status: Ordered rosuvastatin 5 mg oral tablet 1 tablet = 5 mg, By Mouth, Daily, # 30 tablet, 5 Refills, Maintenance, 04/08/21 9:24:00 EST, Tablet, [id number], 151, cm, 03/07/21 9:27:00 EST, Height Start Date: 04/08/21 Stop Date: 10/05/21 Status: Ordered Sodium Chloride, Inhalation 0.9% inhalation solution 4 mL = 0.036 Gm, Neb, 2 times a day, use with 0.5% albuterol solution together in nebulizer, # 240 mL, 6 Refills, Maintenance, 06/12/21 19:39:00 EST, [facility] #[id number], Partial fill upon patient request if the [...]
--- OUTSIDE RECORDS SUMMARY | 2023-08-31 08:21 | XMS_ITS | Continuity of Care Document ---
Author Organization [facility] Address [address] [place] [address]- Care Team Providers Care Grain Broker And Market Operator Name Role Phone Tray BROWN, Robert Anthony Primary Care Physician [phone] Encounter [facility] Date(s): 09/08/22 - 10/08/22 [facility] [address] [place] [address]- [place] Allergies, Adverse Reactions, Alerts Substance Reaction Severity Status codeine Active tetanus toxoid Active sulfa drugs Active Fish Active Immunizations Given and Recorded Vaccine Date Status Refusal Reason [id number] 12y+ bivalent booster vax 08/15/22 Recorded Influenza Virus Vaccine (oldterm) 1 02/03/22 Recor ded SARS-CoV-2 mRNA (ccmmgan-snru-eruil) vax 08/06/21 Recorded SARS-CoV-2 (COVID-19) mRNA BNT-162b2 [...] Recorde d 1Result Comment: [facility] [...] EVERY TREATMENT., # 360 mL, 5 Refills, [facility] #[id number], 151, cm, 09/29/21 13:12:00 EDT, Height, 61.69, kg, 09/29/21 13:11:00 EDT, Dry Weight Start Date: 11/13/21 Status: Ordered bisoprolol 5 mg oral tablet See Instructions, TAKE 1/2 TABLET DAILY, # 45 tablet, 1 Refills, Maintenance, 09/04/22 16:11:00 EDT, [facility], 150, cm, 08/28/22 9:37:00 EDT, Height, 61, kg, 04/17/22 11:31:00 EST, Dry Weight Start Date: 09/04/22 Status: Ordered clopidogrel 75 mg oral tablet 1, tablet, By Mouth, Daily, # 90 Unknown, Refills 0, Maintenance, 09/01/22 10:17:00 EDT, Route to Pharmacy Electronically, [facility], 150, cm, 08/28/22 9:37:00 EDT, Height, [...] Unknown, Refills 3, Route to Pharmacy Electronically, [facility], 151, cm, 09/29/21 13:12:00 EDT, Height, 61.69, kg, 09/29/21 13:11:00 EDT, Dry Weight Start Date: 11/05/21 Status: Ordered losartan 25 mg oral tablet See Instructions, TAKE 1/2 TABLET DAILY, # 45 tablet, 1 Refills, Maintenance, 09/04/22 16:13:00 EDT, [facility], 150, cm, 08/28/22 9:37:00 EDT, [...] 10/17/21 15:25:00 EDT, Route to Pharmacy Electronically, [id number], [facility] #[id number], 151, cm, 09/29/21 13:12:00 EDT, Hei... Start Date: 10/17/21 Status: Ordered Sodium Chloride, Inhalation 0.9% inhalation solution See Instructions, USE 4 ML VIA NEBULIZER TWICE DAILY USE WITH 0.5% VIA INHALER SOLUTION TOGETHER INVIA NEBULIZER, # 300 mL, 0 Refills, Maintenance, 04/28/22 9:38:00 EST, [facility] #[id number],25, USE 4 ML VIA NEBULIZER TWICE DAILY [...] GFR criteria 6[facility] [place] [facility] [place] 11/2020. Cardiac MRI: LVEF 44%; 12/16/20 echo at [facility]: LVEF=40-45% 8Per CT w/contrast 12/19/2021: Irregular partially calcified tissue along the distal left main pulmonary artery extending along the regular small caliber left lower lobe pulmonary artery branch probably reflecting chronic thrombus.. [id number]-Zfcmdwwuv as lung mass. S/P R-CHOP x 6 cycles. Social History Social History Type Response Smoking Status Former smoker entered on: 09/06/14 Sex Patient Care team information Care Team Personnel Name: Francoise Black RN Position: [facility] RN Member Role: Primary Care Nurse Name: Chiqui Stoll RN Position: S RN Member Role: Primary Care Nurse Name: Tray BROWN, Robert Anthony Position: [facility] Physician - Primary Care Member Role: PCP Address: Address: [address] [place] [address]- Care Team Related Persons Name: RAMIRO MARR Address: home [address] [place] [phone]
--- OUTSIDE RECORDS SUMMARY | 2023-08-31 08:21 | XMS_ITS | Continuity of Care Document ---
Author Organization [facility] Z[facility] Address [address] [place] [address]- Care Team Providers Care Wind Tunnel Technician Name Role Phone Tray BROWN, Robert Anthony Primary Care Physician [phone] [id number] Date(s): 07/19/23 - 08/18/23 [facility] Adult [address] [place] [address]- Allergies, Adverse Reactions, Alerts Substance Reaction Severity [...] virus vaccine, inactivated 6 02/09/12 Re corded [id number] 12y+ bivalent booster vax 08/15/22 Recorded Influenza Virus Vaccine (oldterm) 7 02/03/22 Recor ded SARS-CoV-2 mRNA (cqulnmr-avag-hxinm) vax 08/06/21 Recorded SARS-CoV-2 (COVID-19) mRNA BNT-162b2 [...] Comment: [06/19/2016] [facility] 7Result Comment: influenza at [facility] 8Result Comment: [06/19/2016] [facility] 9Result Comment: [06/19/2016] [facility] 10Result Comment: [06/19/2016] [facility] Medications albuterol 0.083% inhalation solution 3 mL, Inhalation, Every 6 hours, USE ACAPELLA DEVICE AFTER EVERY TREATMENT. J44.9, # 360 mL, 5 Refills, 01/18/23 8:59:00 EDT, [facility] #[id number], J44.9, 150, cm, 01/11/23 10:59:00 EDT, Height, 61, kg, 04/17/22 11:31:00 EST, Dry Weight Start Date: 01/18/23 Status: Ordered bisoprolol 5 mg oral tablet See Instructions, TAKE 1/2 TABLET DAILY, # 45 Unknown, 0 Refills, Maintenance, 02/22/23 7:49:00 EDT, [facility], 150, cm, 01/11/23 10:59:00 EDT, Height, 61, kg, 04/17/22 11:31:00 EST, Dry Weight Start Date: 02/22/23 Status: Ordered clopidogrel 75 mg oral tablet See Instructions, TAKE 1 TABLET DAILY, # 90 Unknown, Refills 0, Maintenance, 02/22/23 7:49:00 EDT, Instructions Replace Required Details, Route to Pharmacy Electronically, [facility], 150, cm, 01/11/23 10:59:00 EDT, Height, 61, [...] Refills, Soft Stop, 07/19/23 9:46:00 EDT, Patch, [facility]/pharmacy #[id number], Partial fill upon patient request [...] 10/17/21 15:25:00 EDT, Route to Pharmacy Electronically, [id number], [facility] #[id number], 151, cm, 09/29/21 13:12:00 EDT, Hei... Start [...] mL, 5 Refills, Maintenance, 02/11/23 9:46:00 EDT, [facility] #[id number], USE 4 ML VIANEBULIZER TWICE DAILY USE WITH 0.5% TOGETHER IN VIA... Start Date: 02/11/23 Status: Ordered traMADol 50 mg oral tablet 1 tablet = 50 mg, By Mouth, Every 12 hours, PRN for pain, # 30 tablet, 5 Refills, Acute 01/06/24 10:48:00 EDT, 07/06/23 10:47:00 EDT, Tablet, [facility]/pharmacy #[id number], Partial fill upon patient request [...] chart review meeting GFR criteria 6Admission to [facility] for CHF 11/2020. Cardiac MRI: LVEF 44%; 12/16/20 echo at [facility]: LVEF=40-45% 8Per CT w/contrast 12/19/2021: Irregular partially calcified tissue along the distal left main pulmonary artery extending along the regular small caliber left lower lobe pulmonary artery branch probably reflecting chronic thrombus.. [id number] as lung mass. S/P R-CHOP x 6 cycles. Social History Social History Type Response Smoking Status Former smoker entered on: 09/06/14 Sex Patient Care team information Care Team Personnel Name: Manuel Mayes MD Position: [facility] Physician - Pulm/Critical Care Member Role: Wheel Assembler Address: Address: [address] [place] [address] [address] [facility] [place] [address]- Name: Kenneth Chowdary MD Position: [facility] Cardiology MD Member Role: Fuel Cell Test Engineer Address: Address: [address] [place] [address] [facility] [place] [address]- Name: Robert Feliz MD Position: [facility] Physician - Primary Care Member Role: PCP Address: Address: [address] [place] [address]- [place] Name: Georgette Silva Position: [facility] [place] Automobile Repair Service Estimator Member Role: Flag Maker Name: Epi Turner Member Role: Neurologist Name: Mariposa BROWN, Zi Méndez Position: Reference Physician Member Role: Boat Oar Maker Address: Address: [address] [place] [address] [address] [facility] [place] [address]- [place] Care Team Related Persons Name: RAMIRO MARR Address: home [address] [place] [address]
--- OUTSIDE RECORDS SUMMARY | 2023-08-31 08:21 | XMS_ITS | Continuity of Care Document ---
Author Organization [facility] Address [address] [place] [address]- Care Team Providers Care Topstitcher Lockstitch Name Role Phone Tray BROWN, Robert Anthony Primary Care Physician Encounter [facility] Date(s): 02/05/21 - 03/07/21 [facility] [address] [place] [address]- Attending Physician: AdmAdithya de la torre Admitting [...] 3 Refills, Maintenance, 06/27/20 15:48:00 EST, Solution, [facility] #[id number], 151, cm, 02/05/20 7:35:00 EDT, Height Start Date: 06/27/20 Status: Ordered amoxicillin 500 mg oral capsule 4 capsule = 2,000 mg, By Mouth, Once, take 4 capsules prior to dental procedure, # 4 capsule, 0 Refills, Soft Stop, 08/15/20 16:35:00 EDT, [facility] #[id number], 151, cm, 02/05/20 7:35:00 EDT, Height Start Date: 08/15/20 Status: Ordered atorvastatin 40 mg oral tablet 1 tablet = 40 mg, By Mouth, Daily, # 30 tablet, 11 Refills, Maintenance, 02/26/21 15:23:00 EDT, Tablet, [facility][id number], Partial fill upon patient request if the prescription is for a schedule II opioid drug., 151, cm, 02/10/21 10:22:00 ED... Start Date: 02/26/21 Stop Date: 02/21/22 Status: Ordered doxycycline hyclate 100 mg oral tablet 1 tablet = 100 mg, By Mouth, 2 times a day, for 10 days, # 20 tablet, 0 Refills, Acute 03/10/21 18:17:00 EST, 02/28/21 18:17:00 EDT, Tablet, [facility] #[id number], Partial fill upon patient request if the prescription is for a schedule II opioid... Start Date: 02/28/21 Stop Date: 03/10/21 Status: Ordered Hyper-Don 7% inhalation solution 4 mL = 0.28 Gm, Neb, 2 times a day, take with 0.5ml = 2.5 mg albuterol (add hypersal 4ml to 0.5ml albuterol) twice a day, # 240 mL, 11 Refills, Maintenance, 08/07/20 9:58:00 EDT, [facility][id number], J47.0 bronchiectasis, 4 mL Neb 2 times a da... Start Date: 08/07/20 Stop Date: 08/02/21 Status: Ordered Lasix 40 mg oral tablet 40 mg, 1, tablet, By Mouth, Daily, prescribed by [facility] doctor 12/18/20, # 30 tablet, Refills 2, Tot. Refills 2, Maintenance, 01/10/21 13:42:00 EDT, Route to Pharmacy Electronically, [facility] #[id number], Partial fill upon patient request if th... Start Date: 01/10/21 Status: Ordered losartan 25 mg oral tablet 12.5 mg, 0.5, tablet, By Mouth, Daily, Take 0.5 tablet (12.5mg) daily, # 15 tablet, Refills 11, Tot. Refills 11, Maintenance, 02/05/21 8:59:00 EDT, Route to Pharmacy Electronically, [facility][id number], Partial fill upon patient request if the... Start Date: 02/05/21 Status: Ordered meloxicam 7.5 mg oral tablet 1 tablet, By Mouth, Daily, # 90 tablet, 0 Refills, [facility][id number], 151, cm, 12/27/20 8:19:00 EDT, Height Start [...] 01/10/21 13:45:00 EDT, Route to Pharmacy Electronically, [facility] #[id number], Partial fill upon patientrequest if the prescription is for a schedule II op... Start Date: 01/10/21 Status: Ordered ProAir HFA 90 mcg/inh inhalation aerosol with adapter 2, puffs, Inhalation, 4 times a day, PRN, # 1 each, Refills 6, Tot. Refills 6, Maintenance, 08/26/20 14:10:00 EDT, Route to Pharmacy Electronically, [id number], [facility] #[id number], 151, cm, 08/26/20 13:26:00 EDT, Height Start Date: 08/26/20 Status: Ordered Trelegy Ellipta 200 mcg-62.5 mcg-25 mcg/inh inhalation powder 1 puffs, Inhalation, Daily, at the same time every day, # 1 each, 6 Refills, Maintenance, 12/06/20 9:31:00 EDT, Powder, [facility] #[id number], Partial fill upon patient request if the [...]
--- OUTSIDE RECORDS SUMMARY | 2023-08-31 08:21 | XMS_ITS | Summary of Care ---
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
--- OUTSIDE RECORDS SUMMARY | 2023-08-31 08:21 | XMS_ITS | Summary of Care ---
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
--- OUTSIDE RECORDS SUMMARY | 2023-08-31 08:21 | XMS_ITS | Continuity of Care Document ---
Author Organization [facility] Address [address] [place] [address]- Care Team Providers Care Estimating Manager Name Role Phone Tray BROWN, Robert Anthony Primary Care Physician Encounter [facility] ACCT R [id number] Date(s): 02/28/22 - 04/09/[address] [address] Attending Physician: Kenneth Chowdary MD Admitting Physician: Kenneth Chowdary MD Referring Physician: Kenneth Chowdary MD Allergies, Adverse Reactions, Alerts Substance Reaction Severity Status codeine Active tetanus toxoid Active sulfa drugs Active Immunizations Given and Recorded Vaccine Date Status Refusal Reason Influenza Virus Vaccine (oldterm) 1 02/03/22 Recor ded SARS-CoV-2 mRNA (qvnfvvw-clvm-hyfmq) vax 08/06/21 Recorded SARS-CoV-2 (COVID-19) mRNA BNT-162b2 [...] 06/20/12 Recorde d 1Result Comment: influenza at [facility] 2Location History: [facility] 3Location History: [facility] 4Result Comment: [06/19/2016] [facility] 5Result Comment: [06/19/2016] [facility] 6Early/Late Reason: Other : 7Result Comment: [06/19/2016] [facility] 8Result Comment: [06/19/2016] [facility] 9Result Comment: [06/19/2016] [facility] 10Result Comment: [06/19/2016] [facility] Medications albuterol 0.083% inhalation solution 3 mL, Inhalation, Every 6 hours, USE ACAPELLA DEVICE AFTER EVERY TREATMENT., # 360 mL, 5 Refills, [facility] #[id number], 151, cm, 09/29/21 13:12:00 EDT, Height, 61.69, kg, 09/29/21 13:11:00 EDT, Dry Weight Start Date: 11/13/21 Status: Ordered amoxicillin 500 mg oral capsule 4 capsule = 2,000 mg, By Mouth, Once, take 4 capsules prior to dental procedure, # 4 capsule, 5 Refills, Soft Stop, 03/09/22 6:10:00 EST, [facility] #[id number], 151, cm, 02/11/22 8:43:00 EDT, Height, 61.69, kg, 09/29/21 13:11:00 EDT, Dry Weight Start Date: 03/09/22 Status: Ordered Azithromycin 5 Day Dose Pack 250 mg oral tablet See Instructions, as directed on package labeling, # 6 tablet, 0 Refills, Maintenance, 04/08/22 10:23:00 EST, Tablet, [facility] #[id number], Partial fill upon patient request if the [...] mL, 1 Refills, Maintenance, 07/28/22 9:58:00 EDT, [facility] #85023, J47.0 bronchiectasis, 4 mL Neb 2 times... [...] Acute 05/02/22 10:23:00 EST, 04/08/22 10:23:00 EST, [facility] #[id number], Partial fill upon patient request if the prescription is for a... Start Date: 04/08/22 Stop Date: 05/02/22 Status: Ordered ProAir HFA 90 mcg/inh inhalation aerosol with adapter 2, puffs, Inhalation, 4 times a day, PRN, # 1 each, Refills 5, Tot. Refills 5, Maintenance, 10/17/21 15:25:00 EDT, Route to Pharmacy Electronically, [id number], [facility] #[id number], 151, cm, 09/29/21 13:12:00 EDT, Hei... Start Date: 10/17/21 Status: Ordered Sodium Chloride, Inhalation 0.9% inhalation solution 4 mL = 0.036 Gm, Neb, 2 times a day, use with 0.5% albuterol solution together in nebulizer, # 240 mL, 6 Refills, Maintenance, 06/12/21 19:39:00 EST, [facility] #[id number], Partial fill upon patient request if the [...] review meeting GFR criteria 5Admission to [facility] for CHF 11/2020. Cardiac MRI: LVEF 44%; 12/16/20 echo at [facility]: LVEF=40-45% [id number]-Mithbcuog as lung mass. S/P R-CHOP x 6 cycles. Social History Social History Type Response Smoking Status Former smoker entered on: 09/06/14 Sex Patient Care team information Care Team Personnel Name: Chiqui Stoll RN Position: [facility] RN Member Role: Primary Care Nurse Name: Robert Feliz MD Position: [facility] Primary Care Physician Member Role: PCP Address: Address: [address] [place] [address]- [place] Care Team Related Persons Name: RAMIRO MARR Address: home [address] [place] [address]
--- OUTSIDE RECORDS SUMMARY | 2023-08-31 08:21 | XMS_ITS | Continuity of Care Document ---
Author Organization [facility] Address [address] [place] [address]- Care Team Providers Care Operations Research Director Name Role Phone Tray BROWN, Robert Anthony Primary Care Physician Encounter [facility] Date(s): 06/19/20 - 07/19/20 [facility] [address] [place] [id number] Allergies, Adverse Reactions, Alerts Substance Reaction [...] 3 Refills, Maintenance, 06/27/20 15:48:00 EST, Solution, [facility] #[id number], 151, cm, 02/05/20 7:35:00 EDT, Height Start Date: 06/27/20 Status: Ordered amoxicillin 500 mg oral capsule 4 capsule = 2,000 mg, By Mouth, Once, take 4 capsules prior to dental procedure, # 4 capsule, 0 Refills, Soft Stop, 12/27/19 12:56:00 EDT, [facility] #[id number], 151, cm, 11/22/19 11:48:00 EDT,Height, 65.4, kg, 05/02/18 11:04:00 EST, Dry Weight Start Date: 12/27/19 Status: Ordered aspirin 81 mg oral tablet, chewable 81 mg, 1, tablet, By Mouth, Daily, # 90 tablet, Refills 3, Tot. Refills 3, Maintenance, 02/05/20 7:58:00 EDT, Route to Pharmacy Electronically, [facility] #[id number], 151, cm, 02/05/20 7:35:00 EDT, Height, 65.4, kg, 05/02/18 11:04:00 EST, Dry We... Start Date: 02/05/20 Status: Ordered meloxicam 7.5 mg oral tablet 1 tablet, By Mouth, Daily, # 90 tablet, 0 Refills, Maintenance, 07/01/20 12:15:00 EST, [facility] #[id number], 151, cm, 02/05/20 7:35:00 EDT, Height Start [...] 05/17/19 14:49:00 EST, Route to Pharmacy Electronically, [id number], [facility] #[id number], 151, cm, 05/17/19 14:23:00 EST, Hei... Start [...] 05/07/20 13:57:00 EST, Route to Pharmacy Electronically, [facility] #[id number], 151, cm, 02/05/20 7:35:00 EDT, Height Start [...]
--- OUTSIDE RECORDS SUMMARY | 2023-08-31 08:21 | XMS_ITS | Continuity of Care Document ---
Author Organization [facility] Address [address] [place] [address]- Care Team Providers Care Health Technician Name Role Phone Tray BRONW, Robert Anthony Primary Care Physician [phone] [place] [facility] [place](s): 12/16/21 - 01/15/22 [facility] Adult [address] [place] [address]- Allergies, Adverse Reactions, Alerts Substance Reaction Severity Status codeine Active tetanus toxoid Active sulfa drugs Active Immunizations Given and Recorded Vaccine Date Status Refusal Reason SARS-CoV-2 mRNA (vppeyke-wzeq-fyrzq) vax 08/06/21 Recorded SARS-CoV-2 (COVID-19) mRNA BNT-162b2 [...] vaccine 9 06/20/12 Recorded 1Location History: [facility] 2Location History: [facility] 3Result Comment: [06/19/2016] [facility] 4Result Comment: [06/19/2016] [facility] 5Early/Late Reason: Other : 6Result Comment: [06/19/2016] [facility] 7Result Comment: [06/19/2016] [facility] 8Result Comment: [06/19/2016] [facility] 9Result Comment: [06/19/2016] [facility] Medications albuterol 0.083% inhalation solution 3 mL, Inhalation, Every 6 hours, USE ACAPELLA DEVICE AFTER EVERY TREATMENT., # 360 mL, 5 Refills, [facility] #[id number], 151, cm, 09/29/21 13:12:00 EDT, Height, [...] Unknown, Refills 3, Route to Pharmacy Electronically, [facility], 151, cm, 09/29/21 13:12:00 EDT, Height, 61.69, kg, 09/29/21 13:11:00 EDT, Dry Weight Start Date: 11/05/21 Status: Ordered Hyper-Don 7% inhalation solution 4 mL = 0.28 Gm, Neb, 2 times a day, take with 0.5ml = 2.5 mg albuterol (add hypersal 4ml to 0.5ml albuterol) twice a day J47.0, # 720 mL, 1 Refills, Maintenance, 07/28/22 9:58:00 EDT, [facility] #[id number], J47.0 bronchiectasis, 4 mL Neb 2 times... Start Date: 07/28/22 Status: Ordered Lasix 40 mg oral tablet 1, tablet, By Mouth, Daily, # 90 Unknown, Refills 3, [facility], 151, cm, 09/29/21 13:12:00 EDT, Height, 61.69, kg, 09/29/21 13:11:00 EDT, Dry Weight Start Date: 11/05/21 Status: Ordered losartan 25 mg oral tablet 12.5 mg, 0.5, tablet, By Mouth, Daily, Take 0.5 tablet (12.5mg) daily, # 45 tablet, Refills 3, Tot.Refills 3, Maintenance, 06/12/21 13:52:00 EST, Route to Pharmacy Electronically, [facility], 151, cm, 06/11/21 13:48:00 EST, Height [...] 10/17/21 15:25:00 EDT, Route to Pharmacy Electronically, [id number], [facility] #[id number], 151, cm, 09/29/21 13:12:00 EDT, Hei... Start Date: 10/17/21 Status: Ordered Sodium Chloride, Inhalation 0.9% inhalation solution 4 mL = 0.036 Gm, Neb, 2 times a day, use with 0.5% albuterol solution together in nebulizer, # 240 mL, 6 Refills, Maintenance, 06/12/21 19:39:00 EST, [facility] #[id number], Partial fill upon patient request if the [...] 1-49% stenosis; LICA 1-49% stenosis 4Admission to [facility] [place] 11/2020. Cardiac MRI: LVEF 44%; 12/16/20 echo at [facility]: LVEF=40-45% [id number]-[id number] as lung mass. S/P R-CHOP x 6 cycles. Social History Social History Type Response Smoking Status Former smoker entered on: 09/06/14 Sex Care Team Personnel Name: Robert Feliz MD Address: [address] [place] [address] [place] [address]-
--- OUTSIDE RECORDS SUMMARY | 2023-08-31 08:21 | XMS_ITS | Continuity of Care Document ---
Author Organization [facility] Address [address] [place] [address]- Care Team Providers Care Waste Specialist Name Role Phone Tray BROWN, Robert Anthony Primary Care Physician [phone] Encounter [facility] Date(s): 12/11/19 - 01/10/20 [facility] Adult [address] [place] [address]- [facility] Allergies, Adverse Reactions, Alerts Substance Reaction [...] influenza virus vaccine, inactivated 5 03/08/14 Gi jt influenza virus vaccine, inactivated 6 02/09/12 Re [...] 0 Refills, Soft Stop, 12/27/19 12:56:00 EDT, [facility] #[id number], 151, cm, 11/22/19 11:48:00 EDT,Height, 65.4, kg, 05/02/18 11:04:00 EST, Dry Weight Start Date: 12/27/19 Status: Ordered meloxicam 7.5 mg oral tablet 1 tablet = 7.5 mg, By Mouth, Daily, # 90 tablet, 1 Refills, Maintenance, 01/05/20 8:12:00 EDT, Tablet, [facility] #45692, 151, cm, 11/22/19 11:48:00 EDT, Height, 65.4, [...] 10/03/18 15:01:00 EDT, Route to Pharmacy Electronically, [id number], [facility]98[facility], J47.9 Start Date: 10/03/18 Status: Ordered ProAir HFA 90 mcg/inh inhalation aerosol with adapter 2, puffs, Inhalation, 4 times a day, PRN, # 1 each, Refills 6, Tot. Refills 6, Maintenance, 05/17/19 14:49:00 EST, Route to Pharmacy Electronically, [id number], [facility] #[id number], 151, cm, 05/17/19 14:23:00 EST, Hei... Start [...]
[2023-08-31 08:24] LABS: Basophils Absolute Auto 0.1 X10*3/uL (0.0-0.2); Basophils Percent Auto 0.7 % (0-2); Eosinophils Absolute Auto 0.1 X10*3/uL (0.0-0.4); Eosinophils Percent Auto 0.6 % (0-4); Hematocrit 34.8 % (37.0-47.0); Hemoglobin 11.4 g/dl (12.0-16.0); Imm Gran Abs Auto 0.04 X10*3/uL (0.00-0.03); Imm Gran Pct Auto 0.5 % (0.0-0.4); Lymphocytes Absolute Auto 1.3 X10*3/uL (1.2-4.9); Lymphocytes Percent Auto 15.2 % (20-40); Mean Corpuscular HGB Conc 32.8 g/dl (31.0-35.0); Mean Corpuscular Hemoglobin 29.3 pg (27.0-33.0); Mean Corpuscular Volume 89.5 fL (80.0-98.0); Monocytes Absolute Auto 0.8 X10*3/uL (0.1-1.2); Monocytes Percent Auto 9.7 % (2-11); Neutrophils Absolute Auto 6.3 x10*3/uL (2.0-8.3); Neutrophils Percent Auto 73.3 % (45-73); Platelet Count 268 X10*3/uL (160-400); Red Blood Count 3.89 X10*6/uL (4.20-5.50); Red Cell Distribution Width 14.2 % (11.0-16.0); White Blood Count 8.6 X10*3/uL (4.8-10.8)
[2023-08-31 08:29] LABS: Alanine Aminotransferase 9 U/L (0-31); Albumin Level 3.8 g/dL (3.5-5.0); Alkaline Phosphatase 64 U/L (39-117); Anion Gap 18 (12-20); Aspartate Amino Transferase 15 U/L (5-31); Blood Urea Nitrogen 13 mg/dL (9-16); Calcium 9.8 mg/dL (8.4-10.2); Carbon Dioxide 24 mmol/L (22-29); Chloride 101 mmol/L (96-108); Creatinine Clr Calc Pharmacy 41.1; Estimated Glomerular Filt Rate > 60; Glucose Random 82 mg/dL (60-115); Potassium 3.6 mmol/L (3.3-5.1); Sodium 139 mmol/L (135-145); Total Protein 7.3 g/dL (6.5-8.0)
--- NOTE | 2023-08-31 08:40 | ED.EXTPRO ---
HPI - Extremity Problem General Chief complaint: Extremity Injury, Upper Stated complaint: R HAND PAIN Time Seen by Provider: 08/31/23 08:02 Source: patient Limitations: no limitations History of Present Illness HPI Narrative: 83-year-old female with a history of Cici Gehrig's disease, stroke, congestive heart failure, non-Hodgkin's lip moment in remission, COPD who presents emergency department for evaluation of right hand and right thumb pain x2 days. The patient's PCP was putting her shirt on when her thumb got stuck in the shirt and hyperextended. Since that time she has been having pain at the base of her thumb and her wrist. Patient's pain is got worse to the point where she is having difficulty moving her right wrist and thumb is having difficulty sleeping secondary to the pain. She took some tramadol last night with only minimal relief for pain. She denied being ill in any other way prior to this injury. Related Data Home Medications ?Medication ?Instructions ?Recorded ?Confirmed bisoprolol fumarate 5 mg tablet 0.5 tab PO DAILY 12/16/20 05/11/23 famotidine 20 mg tablet (Pepcid) 20 mg PO DAILY Gastric Reflux 12/16/20 05/11/23 fluticasone fur. 200 mcg-umeclid 1 puff inhalation DAILY 12/16/20 05/11/23 62.5 mcg-vilant 25 mcg inhalat.powder (Trelegy Ellipta) sodium chloride 7 % for 4 ml inhalation BID Wheezing 12/16/20 05/11/23 nebulization albuterol sulfate 2.5 mg/3 mL 2.5 mg inhalation BID 05/11/23 05/11/23 (0.083 %) solution for nebulization furosemide 20 mg tablet 20 mg PO Q OTHER DAY 05/11/23 05/11/23 furosemide 40 mg tablet 40 mg PO Q OTHER DAY 05/11/23 05/11/23 losartan 25 mg tablet 25 mg PO DAILY 05/11/23 05/11/23 edaravone 105 mg/5 mL oral mg PO 08/31/23 suspension (Radicava ORS) riluzole 50 mg tablet 50 mg PO Q12H 08/31/23 Previous Rx's ?Medication ?Instructions ?Recorded clopidogrel 75 mg tablet (Plavix) 75 mg PO DAILY 30 days #30 tabs 12/18/20 Allergies Allergy/AdvReac Type Severity Reaction Status Date / Time codeine Allergy Unknown Verified 08/31/23 07:58 fish derived [fish] Allergy Nausea and Verified 08/31/23 07:58 Vomiting Sulfa (Sulfonamide Allergy Unknown Verified 08/31/23 07:58 Antibiotics) tetanus and diphtheria Allergy Unknown Verified 08/31/23 07:58 toxoids Review of Systems Review of Systems: Yes all other systems are reviewed and are negative FOR[facility]LY [facility] Past Medical History Medical History (Updated 08/31/23 @ 16:35 by Ganga Brush MD) Cici Gehrig disease Shortness of breath Pleural effusion CVA (cerebral vascular accident) Knee abrasion Stroke due to embolism Pneumonia Heart failure TIA (transient ischemic attack) Non-Hodgkin lymphoma in remission COPD (chronic obstructive pulmonary disease) Surgical History Total knee replacement status Social History Social History Housing: House Do you presently have visiting nurse or other home services: No Patient Tobacco Use Status: Former Tobacco user Tobacco use type: Cigarette Smoked in Last 30 Days: No Use of substances other than those prescribed or required for medical reasons: No Advance Directives: Yes Advance Directives Information Provided: Yes Advance Directives on File: No Do you have a plan to hurt others: No Plan service: No Current occupational status: retired Physical Exam Vital Signs: Vital Signs: Last Vital Signs Temp 98.4 F 08/31/23 15:27 Pulse 98 08/31/23 15:27 Resp 14 08/31/23 15:27 BP 114/42 L 08/31/23 15:27 Pulse Ox 92 08/31/23 15:27 O2 Del Method Room Air 08/31/23 15:27 BMI result Body Mass Index 22.2 Vital signs were normal. Exam: General: Awake, alert in no distress, patient's speech is slow but comprehensible, answers all questions appropriately Extremities: Right hand and wrist examination did reveal soft tissue swelling and ecchymosis at the base of the right thumb and over the navicular bone, these areas are tender to palpation, she has increased pain with minimal movement of her wrist increased pain with minimal movement of her thumb. Neuro: Awake, alert, oriented Medications Administered Discontinued Medications Generic Name Dose Route Start Last Admin Trade Name Freq PRN Reason Stop Dose Admin Oxycodone HCl 5 mg 08/31/23 08:47 08/31/23 08:54 Oxycodone Hcl Immed Release 5 Mg Tablet PO 08/31/23 08:48 5 mg ONCE STA Administration Oxycodone HCl 5 mg 08/31/23 16:17 08/31/23 16:29 Oxycodone Hcl Immed Release 5 Mg Tablet PO 08/31/23 16:18 5 mg ONCE STA Administration Medical Decision Making Medical Decision Making [facility] Narrative: 83-year-old female with a history of Cici Gehrig's disease, stroke, congestive heart failure, non-Hodgkin's lip moment in remission, COPD who presents emergency department for evaluation of right hand and right thumb pain x2 days after her thumb got hyperextended while her PREDICTIVE MAINTENANCE SPECIALIST was trying to put a shirt on her and her thumb got caught in his shirt sleeve. Vital signs were normal. Patient had ecchymosis soft tissue swelling over the base of the thumb and over the navicular bone of the wrist. Differential diagnosis: ?Includes but is not limited to navicular fracture, proximal phalanx fracture of the thumb, thumb sprain, wrist sprain Following evaluation was ordered: Right thumb and right wrist x-ray including navicular bone Patient was initially treated with the following: Oxycodone 5 mg orally Course: 12:08. The patient's x-rays were negative for fracture. Patient's presentation is consistent with thumb and wrist sprain. I did place the patient had a thumb spica splint however this made the pain worse therefore remove the splint. Patient was given an ice pack to apply over the area of swelling and pain. She was advised to take Tylenol for pain and for pain not relieved event she was advised to take her tramadol as prescribed by your provider. Patient's son states that there is no one to care for at home and he is also requesting an EKG since the patient is going to be started on a new medications that may prolong her QTC interval. 16:04 Start physician observation The patient has been evaluated by case management and patient will need short-term rehab. Case management believes that this will not happen today but hopefully there will be a bed available for tomorrow. Therefore the patient will be kept in physician observation until disposition can be determined. Patient's medications will be reconciled in ordered. At the end of my shift, the patient's care was turned over to my colleague, Dr. Traore Admission/Observation Consideration of admission/observation: Escalation of care including admission/observation considered Consult Healthcare Provider Management of the patient was discussed with: Assistant Maintenance Manager (Case management) Lab Data MDM Lab Attestation statement: I reviewed the patient's lab results. 08/31/23 08:07 08/31/23 08:07 Labs: Lab Results 08/31/23 08/31/23 Range/Units 08:07 12:45 WBC 8.6 (4.8-10.8) X10*3/uL RBC 3.89 L (4.20-5.50) X10*6/uL Hgb 11.4 L (12.0-16.0) g/dl Hct 34.8 L (37.0-47.0) % MCV 89.5 (80.0-98.0) fL MCH 29.3 (27.0-33.0) pg MCHC 32.8 (31.0-35.0) g/dl RDW 14.2 (11.0-16.0) % Plt Count 268 (160-400) X10*3/uL MPV 10.0 (9.4-12.3) fL Immature Gran % (Auto) 0.5 H (0.0-0.4) % Neut % (Auto) 73.3 H (45-73) % Lymph % (Auto) 15.2 L (20-40) % [place] % (Auto) 9.7 (2-11) % Eos % (Auto) 0.6 (0-4) % Baso % (Auto) 0.7 (0-2) % Lymph # (Auto) 1.3 (1.2-4.9) X10*3/uL [place] # (Auto) 0.8 (0.1-1.2) X10*3/uL Eos # (Auto) 0.1 (0.0-0.4) X10*3/uL Baso # (Auto) 0.1 (0.0-0.2) X10*3/uL Abs Immat Gran (auto) 0.04 H (0.00-0.03) X10*3/uL Absolute Neuts (auto) 6.3 (2.0-8.3) x10*3/uL Absolute Nucleated RBC 0.000 (0.0-0.012) X10*3/uL Nucleated RBC % (auto) 0.0 (0.0-0.2) /100WBC Sodium 139 (135-145) mmol/L Potassium 3.6 (3.3-5.1) mmol/L Chloride 101 (96-108) mmol/L Carbon Dioxide 24 (22-29) mmol/L Anion Gap 18 (12-20) BUN 13 (9-16) mg/dL Creatinine 0.73 (0.5-1.4) mg/dL Estim Creat Clear Calc 41.1 Estimated GFR > 60 Random Glucose 82 (60-115) mg/dL Calcium 9.8 (8.4-10.2) mg/dL Total Bilirubin 0.9 (0.0-1.0) mg/dL AST 15 (5-31) U/L ALT 9 (0-31) U/L Alkaline Phosphatase 64 (39-117) U/L Total Protein 7.3 (6.5-8.0) g/dL Albumin 3.8 (3.5-5.0) g/dL COVID-19 (PRAVEENA) Negative (Negative) COVID-19 Clin Com See Note Independent Interpretation I performed an independent interpretation of an: EKG and Plain X-Ray Interpretation: My independent interpretation the patient's right thumb and wrist x-ray is as follows: No acute fracture seen My independent interpretation patient's 12 EKG is as follows: Normal sinus rhythm rate of 82, normal DE interval, QRS duration QTC interval, no ST segment elevation, no ST segment depression, Q-waves in 3, AVF, V1 through V3, nonspecific T-wave abnormalities, no PACs, no PVCs-when compared to EKG dated 07/18/2023 there are no significant changes. Radiology Impression Discussion of test interpretation with radiology: I have reviewed the radiologist's reading. Radiologist Impression: XR wrist RT w scaphoid IMPRESSION: Degenerative changes as described above. No evidence of an acute osseous injury. Dictated By: Manuel Wong MD Discharge Plan Discharge Clinical Impression: Sprain of right thumb, Weakness, ALS (amyotrophic lateral sclerosis) Patient Disposition: Still a Patient Prescriptions: No Action bisoprolol fumarate 5 mg tablet 0.5 tab PO DAILY sodium chloride 7 % solution for nebulization 4 ml inhalation BID Rx Instructions: mixed with albuterol Trelegy Ellipta 200-62.5-25 mcg blister with device 1 puff inhalation DAILY Rx Instructions: was taking spiriva famotidine [Pepcid] 20 mg Tablet 20 mg PO DAILY clopidogrel [Plavix] 75 mg tablet 75 mg PO DAILY 30 Days Qty: 30 0RF albuterol sulfate 2.5 mg /3 mL (0.083 %) solution for nebulization 2.5 mg inhalation BID losartan 25 mg Tablet 25 mg PO DAILY furosemide 40 mg Tablet 40 mg PO Q OTHER DAY furosemide 20 mg Tablet 20 mg PO Q OTHER DAY riluzole 50 mg tablet 50 mg PO Q12H Radicava ORS 105 mg/5 mL suspension PO Print Language: Tamazight
[2023-08-31 08:41] LABS: Bilirubin Total 0.9 mg/dL (0.0-1.0)
[2023-08-31] MEDS: oxyCODONE HCl Immed Release 5 MG TABLET PO ×3 (08:54→22:38)
--- NOTE | 2023-08-31 08:55 | PC.NURSE ---
medication administered per provider order. effectiveness pending. pt waiting for xray to be completed at this time.
--- NOTE | 2023-08-31 09:10 | PC.NURSE ---
xray being completed at this time.
[2023-08-31 10:28] VITALS: BP 113/67; PULSE 91; RESP 16; O2SAT 96
--- NOTE | 2023-08-31 12:19 | ECG_ITS ---
Test Reason : QT EVAL Blood Pressure : / mmHG Vent. Rate : 082 BPM Atrial Rate : 082 BPM P-R Int : 158 ms QRS Dur : 094 ms QT Int : 390 ms P-R-T Axes : 047 -36 104 degrees QTc Int : 455 ms Sinus rhythm with Premature supraventricular complexes Left axis deviation Inferior infarct (cited on or before 11-MAY-2023) Anteroseptal infarct (cited on or before 16-DEC-2020) Abnormal ECG When compared with ECG of 18-JUL-2023 16:15, Premature supraventricular complexes are now Present Referred By: Ganga Brush Electronically Signed By:Yimi Guerrero
--- NOTE | 2023-08-31 12:38 | PC.NURSE ---
repeat ekg performed. pt speaking w/ CM at this time.
--- NOTE | 2023-08-31 12:43 | MHC.CM.ED ---
Received case management consult from Dr Brush. Patient came to the ER due to right hand pain. Appears to have strain in the left thumb. Met with patient and son, Mode, in regards to discharge planning. Patient was living at home with a 16/11 caregiver. However caregiver is no longer able to assist patient. No family available for patient 16/11 right now. Patient has ALS. PCP verified. Patient has received 5 Pfizer vaccines. Patient is active with [facility]. Patient and Mode requesting referall for private pay short term rehab while family works to get another caregiver in the home for patient. Referral broadcasted to all facilities within 15 miles at this time for bed availability. Continue to monitor for d/c needs.
--- NOTE | 2023-08-31 12:46 | PC.NURSE ---
swabs obtained/sent to lab.
[2023-08-31 12:47] VITALS: BP 101/57; PULSE 85; RESP 16; TEMP 36.8; O2SAT 95
[2023-08-31 13:05] LABS: COVID-19 Test Negative (Negative); IDNOW Serial# 08D9AD1C
--- NOTE | 2023-08-31 14:28 | PC.NURSE ---
pt provided w/ snacks per request. new ice pack applied to right hand/wrist. pt speaking w/ CM at this time,
--- NOTE | 2023-08-31 14:35 | MHC.CM.ED ---
Addendum entered by Jesica Ram 08/31/23 15:57: Patient and Mode accept bed at [facility] [address]. Facility made aware and will reach out to Mode about financials. Original Note: Patient remains in the ER. Following facilities are able to offer a bed: [place], [facility], [facility], [facility], [facility] [address]. Still waiting to hear from: [facility] (facility is requesting [facility] be completed. This was provided to patient and son.), [facility], [facility], [facility], [facility], [facility], [place] for extended care and [facility]. All of these options were provided to patient and son, Mode. They will provide CM with their 1st choice. Continue to monitor for d/c needs.
[2023-08-31 15:27] VITALS: BP 114/42; PULSE 98; RESP 14; TEMP 36.9; O2SAT 92
--- NOTE | 2023-08-31 16:34 | PC.NURSE ---
pt verbalizing pain level increased to a 6/10. pt medicated w/ prn oxycodone. effectiveness pending.
--- NOTE | 2023-08-31 17:22 | PHA.MEDREC ---
Pharmacy Consult ? Medication Reconciliation Pharmacy has completed the medication reconciliation. Patient reported medications. Report Radicava does not start until 09/05/23. Patient call son to bring in new, Javier QuirogaD
[2023-08-31 20:02] VITALS: BP 119/61; PULSE 100; RESP 16; TEMP 36.9; O2SAT 96
[2023-08-31] MEDS: Acetaminophen 325 MG TABLET 650 MG PO (22:38)
[2023-09-01 06:00] VITALS: BP 102/52; PULSE 75; RESP 19; TEMP 36.6; O2SAT 96
[2023-09-01 07:24] LABS: Glucose, Whole Blood 82 mg/dL (60-115)
--- NOTE | 2023-09-01 08:23 | PC.NURSE ---
Patient reports has not voided since yesterday, bladder scanned for greater than 400mls, provider notified
--- NOTE | 2023-09-01 08:45 | PC.NURSE ---
Straight cathed for 500mls miriam colored urine, patient reports feeling much better
[2023-09-01] MEDS: oxyCODONE HCl Immed Release 5 MG TABLET PO (09:20)
[2023-09-01 09:23] LABS: Appearance Urine Clear; Color Urine Yellow; Glucose Urine UA Negative (Negative); Leukocyte Esterase Urine Small (1+) (Negative); Nitrite Urine Negative (Negative); PH 5.5 (5.0-9.0); UMIC TRIGGER UACC YES; Urine Blood Negative (Negative); Urine Ketones 40 mg/dL (Negative); Urine Protein Trace mg/dL (Neg-Trace)
[2023-09-01 09:43] LABS: Bacteria Urine None Seen (None Seen); Calcium Oxalate Crystals Urine Present; RBC Urine 0-2 /HPF (0-2); UACC Culture Trigger YES; WBC Urine 0-5 /HPF (0-5)
--- NOTE | 2023-09-01 09:56 | MHC.CM.ED ---
Addendum entered by Jesica Ram 09/01/23 12:38: Received notification from Kiara SPARKS that family has been able to get additional care through [facility]. They would like patient d/c'd home this afternoon via BLS. [facility] booked for 630pm. [facility] made aware. Patient, son Mode, Kiara SPARKS and Shruthi QUEEN aware. Original Note: Patient remains in ER overflow. [facility] to son and patient is now requesting [facility]. [facility] made aware and asked to reach out to son. Continue to monitor for d/c needs.
--- NOTE | 2023-09-01 11:43 | MHC.EDTECH ---
Assisted patient with eating her breakfast.
--- NOTE | 2023-09-01 12:56 | PC.NURSE ---
Patient/son stating that the plan is to take her home. manager outpatient aware transport booked home at 6:30pm
[2023-09-01 14:33] VITALS: BP 106/52; PULSE 87; RESP 20; TEMP 36.7; O2SAT 92
--- NOTE | 2023-09-01 16:20 | PC.NURSE ---
Bladder scanned for 112mls, patient stating she does not feel like she needs to urinate. Provider aware plan is to place [facility] if patient unable to void by 6pm.
--- NOTE | 2023-09-01 18:35 | PC.NURSE ---
transport delayed by 1 hour, son and patient aware
--- NOTE | 2023-09-01 18:59 | PC.NURSE ---
Patient voided a large amount of urine into bedside commode.
--- NOTE | 2023-09-01 19:01 | PC.NURSE ---
Post void bladder scan completed by BRIDGER Craig revealed 0 mL of urine in patient's bladder.
[2023-09-01 19:41] VITALS: BP 112/56; PULSE 89; RESP 18; TEMP 36.7; O2SAT 95
== END 2023-09-01 19:42 | disposition home or self-care (01) ==
PROVIDERS: Emergency Medicine Emergency Medical Services; Physician Assistant; Emergency Provider Emergency Medicine; PCP Family Medicine
DX: S63.601A Unspecified sprain of right thumb, initial encounter (principal); R53.1 Weakness; G12.21 Amyotrophic lateral sclerosis; R33.9 Retention of urine, unspecified; Z86.73 Personal history of transient ischemic attack (TIA), and cerebral infarction without residual deficits; X50.1XXA Overexertion from prolonged static or awkward postures, initial encounter; Y93.9 Activity, unspecified; Y92.9 Unspecified place or not applicable; Y99.9 Unspecified external cause status; Z11.52 Encounter for screening for COVID-19
CPT/HCPCS: 36415; 51701; 51798; 73110; 73140; 80053; 81001; 82947; 85025; 87086; 87635; 93005; 99285

== ENCOUNTER → 2023-08-31 12:19 | Outpatient (BNV) | payer MEDICARE, SELFPAY | PROVIDERS: Emergency Provider Emergency Medicine Emergency Medical Services; PCP Family Medicine; Visit Provider Internal Medicine Cardiovascular Disease | DX: I49.3 Ventricular premature depolarization (principal) | CPT/HCPCS: 93010 ==

== ENCOUNTER 2023-09-13 14:40 | Inpatient (IN) | payer MEDICARE, SELFPAY ==
--- NOTE | ~2023-09-13 | US_ITS ---
DOPPLER VENOUS ULTRASOUND BILATERAL LOWER EXTREMITIES Clinical indication: Bilateral lower extremity deep venous thrombosis Technique: Multiple longitudinal and transverse estrella-scale as well as color and spectral Doppler images of the bilateral iliac veins were obtained. Attempts made to evaluate IVC Comparison: Ultrasound from 09/13/23 FINDINGS: IVC is not visualized due to overlying bowel gas shadowing. The left common iliac vein is not visualized due to overlying bowel gas shadowing. Patent color flow with normal duplex venous waveforms seen in the right common iliac vein and external iliac vein. Patent color flow with normal duplex waveforms seen in the left external iliac vein and common femoral vein. Partially occlusive thrombus is again seen in the right common femoral vein which is grossly unchanged compared to the prior exam. US/US duplex arterial venous comp Impression: 1. Persistent partially occlusive thrombus in the right common femoral vein which is grossly unchanged compared to the prior exam. No extension into the right iliac veins. 2. No evidence of propagation of deep venous thrombosis into the left common femoral or external iliac vein. 3. Left common iliac vein and IVC are not visualized due to overlying bowel gas shadowing.
--- NOTE | ~2023-09-13 | US_ITS ---
EXAMINATION: US VENOUS ULTRASOUND WITH DOPPLER LOWER EXTREMITY, BILATERAL CLINICAL INFORMATION: Bilateral lower extremity pain and swelling COMPARISON: None available. TECHNIQUE: Ultrasound of the deep veins is performed from the hip to the calf with compression sonography and color and pulse Doppler assessment. Spectral analysis with color-flow imaging is performed. FINDINGS: There is bilateral acute extensive DVT present with thrombus extending from the distal posterior tibial and peroneal veins all the way up through the popliteal veins, femoral veins and into the common femoral veins. The profunda femoris veins and great saphenous veins are free of thrombus. US/US venous duplex LE BI IMPRESSION: Extensive bilateral DVT.
[2023-09-13 15:05] VITALS: BP 102/58; BP 118/62; PULSE 64; PULSE 65; RESP 14; TEMP 36.9; O2SAT 95; O2SAT 97; BMI 19.5
--- NOTE | 2023-09-13 15:14 | ED.GENADULT ---
HPI - General Adult General Chief complaint: Extremity Problem Stated complaint: Left leg pain and swelling. Possible blood clot. Time Seen by Provider: 09/13/23 14:57 Source: patient and EMS Mode of arrival: EMS Limitations: no limitations History of Present Illness HPI narrative: Patient comes to the emergency room complaining of lower extremity pain and swelling for 1 week. Patient denies any chest pain or shortness of breath. Patient denies right leg pain but swelling is present. Patient is mostly bed-bound, patient has significant history of Cici Gehrig's Related Data Home Medications ?Medication ?Instructions ?Recorded ?Confirmed bisoprolol fumarate 5 mg tablet 0.5 tab PO DAILY 12/16/20 08/31/23 fluticasone fur. 200 mcg-umeclid 1 puff inhalation DAILY 12/16/20 08/31/23 62.5 mcg-vilant 25 mcg inhalat.powder (Trelegy Ellipta) sodium chloride 7 % for 4 ml inhalation BID Wheezing 12/16/20 08/31/23 nebulization albuterol sulfate 2.5 mg/3 mL 2.5 mg inhalation BID 05/11/23 08/31/23 (0.083 %) solution for nebulization furosemide 20 mg tablet 20 mg PO Q OTHER DAY 05/11/23 08/31/23 furosemide 40 mg tablet 40 mg PO Q OTHER DAY 05/11/23 08/31/23 edaravone 105 mg/5 mL oral mg PO 08/31/23 suspension (Radicava ORS) riluzole 50 mg tablet 50 mg PO BID@0600,1630 08/31/23 08/31/23 Previous Rx's ?Medication ?Instructions ?Recorded clopidogrel 75 mg tablet (Plavix) 75 mg PO DAILY 30 days #30 tabs 12/18/20 Allergies Allergy/AdvReac Type Severity Reaction Status Date / Time codeine Allergy Unknown Verified 09/13/23 15:15 fish derived [fish] Allergy Nausea and Verified 09/13/23 15:15 Vomiting Sulfa (Sulfonamide Allergy Unknown Verified 09/13/23 15:15 Antibiotics) tetanus and diphtheria Allergy Unknown Verified 09/13/23 15:15 toxoids Review of Systems Review of Systems: Constitutional : No Weight loss, No Fever, No Chills, No Night Sweats, No Fatigue, No Malaise ENT/Mouth : No Hearing loss, No Ear Pain, No Nasal Congestion, No Sinus Pain, No Hoarseness, No sore throat, No Rhinorrhea, No Swallowing Difficulty Eyes: No Eye Pain, No Swelling, No Redness, No Foreign Body, No Discharge, No Vision Changes Cardiovascular : No Chest Pain, No SOB, No Dyspnea on Exertion, No Orthopnea, No Edema, No Palpitations Respiratory : No Cough, No Sputum, No Wheezing, No Smoke Exposure, No Dyspnea Gastrointestinal : No Nausea, No Vomiting, No Diarrhea, No Constipation, No abdominal Pain, No Hematochezia, No Melena Genitourinary : no irregular bleeding, No Dysuria, No Urinary Frequency, No Hematuria, No Urinary Incontinence, No Urgency, No Flank Pain, No Urinary Flow Changes, No Hesitancy Musculoskeletal : Complaining lower extremity pain and swelling on the left side, No joint pain, No Myalgias, No Joint Swelling Skin : No Skin Lesions, No rash Neuro : No Weakness, No Numbness, No Paresthesias, No Loss of Consciousness, No Dizziness, No Headache Psych : No Anxiety/Panic, No Depression, No SI/HI/AH/VH, No Social Issues, Heme/Lymph: No Bruising, No Bleeding,No Lymphadenopathy Endocrine : No Polyuria, No Polydipsia, No Temperature Intolerance [facility] [place] Past Medical History Medical History Cici Gehrig disease Shortness of breath Pleural effusion CVA (cerebral vascular accident) Knee abrasion Stroke due to embolism Pneumonia Heart failure TIA (transient ischemic attack) Non-Hodgkin lymphoma in remission COPD (chronic obstructive pulmonary disease) Surgical History Total knee replacement status Social History Social History Housing: House Do you presently have visiting nurse or other home services: No Patient Tobacco Use Status: Former Tobacco user Tobacco use type: Cigarette Smoked in Last 30 Days: No Use of substances other than those prescribed or required for medical reasons: No Advance Directives: Yes Advance Directives on File: Yes Advance Directives Date on File: 08/31/23 Do you have a plan to hurt others: No Plan service: No Current occupational status: retired Physical Exam ED Vital Signs: Vital Signs - 24 hr 09/13/23 15:05 09/13/23 17:36 Temperature 98.5 F 98.8 F Pulse Rate 65 70 Respiratory Rate 14 16 Blood Pressure 102/58 L 111/58 L Pulse Oximetry 97 98 Oxygen Delivery Method Room Air Room Air BMI result Body Mass Index 19.5 Const Other: Appearance: Alert. Oriented X3. No acute distress. Eyes: Pupils equal, round and reactive to light. ENT: Pharynx normal. Neck: Normal inspection. Neck supple. No lymph nodes noted. No crepitus CVS: Normal heart rate and rhythm. Pulses normal. Normal S1 and S2 Respiratory: No respiratory distress. Breath sounds normal. No Wheezing. No rales Abdomen: Soft and nontender. No rigidity. No distention. Skin: Skin warm and dry. Normal skin color. Normal skin turgor. Extremities: +2 pitting edema bilaterally, no obvious swelling in lower extremity, patient reports pain to palpation in the left calf Neuro: Oriented X 3. No motor deficit. No sensory deficit. Moving all extremities. No slurred speech. CN 2 through 12 grossly intact Psych: calm, cooperative, normal affect Medical Decision Making Medical Decision Making [facility] Narrative: -my interpretation of hematology: At baseline, anemic. Patient's chemistry within normal limits. BNP 284, which is patient's baseline. -I discussed the ultrasound with our radiologist, patient has extensive bilateral DVTs. -I also discussed the ultrasound on the patient with Dr. Galvez from vascular surgery, we will start heparin and patient may need an IR procedure in the morning. -I discussed the patient with Dr. James, patient being admitted Differential Diagnosis Differential Diagnoses: The differential diagnosis associated with the presentation includes (DVT, CHF, venous insufficiency) Admission/Observation Consideration of admission/observation: Escalation of care including admission/observation considered Consult Healthcare Provider Management of the patient was discussed with: Hospitalist and Information Technology Associate Lab Data [facility] Lab Attestation statement: I reviewed the patient's lab results. 09/13/23 15:33 09/13/23 15:33 Labs: Lab Results 09/13/23 Range/Units 15:33 WBC 7.4 (4.8-10.8) X10*3/uL RBC 3.49 L (4.20-5.50) X10*6/uL Hgb 10.2 L (12.0-16.0) g/dl Hct 31.5 L (37.0-47.0) % MCV 90.3 (80.0-98.0) fL MCH 29.2 (27.0-33.0) pg MCHC 32.4 (31.0-35.0) g/dl RDW 14.1 (11.0-16.0) % Plt Count 387 D (160-400) X10*3/uL MPV 9.6 (9.4-12.3) fL Immature Gran % (Auto) 0.4 (0.0-0.4) % Neut % (Auto) 62.5 (45-73) % Lymph % (Auto) 27.6 (20-40) % [place] % (Auto) 8.2 (2-11) % Eos % (Auto) 0.8 (0-4) % Baso % (Auto) 0.5 (0-2) % Lymph # (Auto) 2.0 (1.2-4.9) X10*3/uL [place] # (Auto) 0.6 (0.1-1.2) X10*3/uL Eos # (Auto) 0.1 (0.0-0.4) X10*3/uL Baso # (Auto) 0.0 (0.0-0.2) X10*3/uL Abs Immat Gran (auto) 0.03 (0.00-0.03) X10*3/uL Absolute Neuts (auto) 4.6 (2.0-8.3) x10*3/uL Absolute Nucleated RBC 0.000 (0.0-0.012) X10*3/uL Nucleated RBC % (auto) 0.0 (0.0-0.2) /100WBC Sodium 140 (135-145) mmol/L Potassium 3.6 (3.3-5.1) mmol/L Chloride 99 (96-108) mmol/L Carbon Dioxide 29 (22-29) mmol/L Anion Gap 16 (12-20) BUN 13 (9-16) mg/dL Creatinine 0.77 (0.5-1.4) mg/dL Estim Creat Clear Calc 39.0 Estimated GFR > 60 Random Glucose 101 (60-115) mg/dL Calcium 9.8 (8.4-10.2) mg/dL B-Natriuretic Peptide 284 H (<100) pg/mL Independent Interpretation I performed an independent interpretation of an: Ultrasound Radiology Impression Discussion of test interpretation with radiology: I discussed test interpretation with the radiologist and I have reviewed the radiologist's reading. Radiologist Impression: There is bilateral acute extensive DVT present with thrombus extending from the distal posterior tibial and peroneal veins all the way up through the popliteal veins, femoral veins and into the common femoral veins. The profunda femoris veins and great saphenous veins are free of thrombus. US/US venous duplex LE BI IMPRESSION: Extensive bilateral DVT. Critical Care Time Critical Care Time Critical Care Time: Yes Total Critical Care Time: 75 Attestation: I have personally provided critical care time. Time includes review of lab data, radiology results, discussion with consultants, and monitoring for potential decompensation. Intervention performed as documented. Discharge Plan Discharge Clinical Impression: DVT, bilateral lower limbs Patient Disposition: Admitted As Inpatient Prescriptions: No Action bisoprolol fumarate 5 mg tablet 0.5 tab PO DAILY sodium chloride 7 % solution for nebulization 4 ml inhalation BID Rx Instructions: mixed with albuterol Trelegy Ellipta 200-62.5-25 mcg blister with device 1 puff inhalation DAILY Rx Instructions: was taking spiriva clopidogrel [Plavix] 75 mg tablet 75 mg PO DAILY 30 Days Qty: 30 0RF albuterol sulfate 2.5 mg /3 mL (0.083 %) solution for nebulization 2.5 mg inhalation BID furosemide 40 mg Tablet 40 mg PO Q OTHER DAY furosemide 20 mg Tablet 20 mg PO Q OTHER DAY riluzole 50 mg tablet 50 mg PO BID@0600,1630 Radicava ORS 105 mg/5 mL suspension PO Rx Instructions: TAKE FOR 10 DAYS START 09/05/23 Print Language: Northern Irish
[2023-09-13 15:37] LABS: MANUAL DIFF FLAG NO
[2023-09-13 15:40] LABS: Basophils Percent Auto 0.5 % (0-2); Eosinophils Absolute Auto 0.1 X10*3/uL (0.0-0.4); Eosinophils Percent Auto 0.8 % (0-4); Hematocrit 31.5 % (37.0-47.0); Hemoglobin 10.2 g/dl (12.0-16.0); Imm Gran Abs Auto 0.03 X10*3/uL (0.00-0.03); Imm Gran Pct Auto 0.4 % (0.0-0.4); Lymphocytes Percent Auto 27.6 % (20-40); Mean Corpuscular HGB Conc 32.4 g/dl (31.0-35.0); Mean Corpuscular Hemoglobin 29.2 pg (27.0-33.0); Mean Corpuscular Volume 90.3 fL (80.0-98.0); Mean Platelet Volume 9.6 fL (9.4-12.3); Monocytes Absolute Auto 0.6 X10*3/uL (0.1-1.2); Monocytes Percent Auto 8.2 % (2-11); Neutrophils Absolute Auto 4.6 x10*3/uL (2.0-8.3); Neutrophils Percent Auto 62.5 % (45-73); Platelet Count 387 X10*3/uL (160-400); Red Blood Count 3.49 X10*6/uL (4.20-5.50); Red Cell Distribution Width 14.1 % (11.0-16.0); White Blood Count 7.4 X10*3/uL (4.8-10.8)
[2023-09-13 15:59] LABS: Anion Gap 16 (12-20); Blood Urea Nitrogen 13 mg/dL (9-16); Calcium 9.8 mg/dL (8.4-10.2); Carbon Dioxide 29 mmol/L (22-29); Chloride 99 mmol/L (96-108); Estimated Glomerular Filt Rate > 60; Glucose Random 101 mg/dL (60-115); Potassium 3.6 mmol/L (3.3-5.1); Sodium 140 mmol/L (135-145)
[2023-09-13 17:18] LABS: B Type Natriuretic Peptide 284 pg/mL (<100)
[2023-09-13 17:36] VITALS: BP 111/58; PULSE 70; RESP 16; TEMP 37.1; O2SAT 98
--- NOTE | 2023-09-13 19:39 | ECG_ITS ---
Test Reason : EXTENSIVE DVTS Blood Pressure : / mmHG Vent. Rate : 072 BPM Atrial Rate : 072 BPM P-R Int : 160 ms QRS Dur : 096 ms QT Int : 422 ms P-R-T Axes : 114 -43 087 degrees QTc Int : 462 ms Normal sinus rhythm Left axis deviation Minimal voltage criteria for LVH, may be normal variant ( [place] product ) Anteroseptal infarct (cited on or before 16-DEC-2020) Abnormal ECG When compared with ECG of 31-AUG-2023 12:28, Premature supraventricular complexes are no longer Present ST more depressed Lateral leads Referred By: Christen Traore Electronically Signed By:Yimi Guerrero
--- NOTE | 2023-09-13 20:00 | PM.IMHP ---
History of Present Illness Date of Service: 09/13/23 Chief Complaint: Lower extremity swelling This is a 83-year-old female with pertinent history of ALS, congestive heart failure unspecified EF, non-Hodgkin lymphoma in remission, history of CVA, COPD not on home oxygen, who presents to the emergency department for evaluation of lower extremity swelling and pain. Patient states her symptoms started 1 week prior to presentation. She noticed redness, swelling and pain of bilateral lower extremities. Her son prompted her to go to the ER. She is mostly bed-bound due to ALS. Patient denies chest discomfort, palpitations or dyspnea. No orthopnea or PND. No fever, chills, palpitations, abdominal pain, changes in urinary or bowel habits. No history of blood clots in the past as per patient. In the emergency department, imaging with extensive bilateral DVT. Vascular surgery was consulted who requested heparin drip and admission. Review of Systems Constitutional: Constitutional: Reports no additional constitutional complaints Cardiovascular: Cardiovascular: Reports no additional cardiovascular complaints Respiratory: Respiratory: Reports no additional respiratory complaints Gastrointestinal: Gastrointestinal: Reports no additional gastrointestinal complaints Genitourinary: Genitourinary: Reports no additional female genitourinary complaints [facility] Medical History Cici Gehrig disease Shortness of breath Pleural effusion CVA (cerebral vascular accident) Knee abrasion Stroke due to embolism Pneumonia Heart failure TIA (transient ischemic attack) Non-Hodgkin lymphoma in remission COPD (chronic obstructive pulmonary disease) Surgical History Total knee replacement status Social History Housing: House Do you presently have visiting nurse or other home services: No Patient Tobacco Use Status: Former Tobacco user Tobacco use type: Cigarette Smoked in Last 30 Days: No Use of substances other than those prescribed or required for medical reasons: No Advance Directives: Yes Advance Directives on File: Yes Advance Directives Date on File: 08/31/23 Do you have a plan to hurt others: No Plan service: No Current occupational status: retired Meds Allergies Allergy/AdvReac Type Severity Reaction Status Date / Time codeine Allergy Unknown Verified 09/13/23 15:15 fish derived [fish] Allergy Nausea and Verified 09/13/23 15:15 Vomiting Sulfa (Sulfonamide Allergy Unknown Verified 09/13/23 15:15 Antibiotics) tetanus and diphtheria Allergy Unknown Verified 09/13/23 15:15 toxoids Home Medications ?Medication ?Instructions ?Recorded ?Confirmed ?Last Taken ?Type bisoprolol fumarate 5 mg tablet 0.5 tab PO DAILY 12/16/20 08/31/23 08/30/23 History fluticasone fur. 200 mcg-umeclid 1 puff inhalation DAILY 12/16/20 08/31/23 08/30/23 History 62.5 mcg-vilant 25 mcg inhalat.powder (Trelegy Ellipta) sodium chloride 7 % for 4 ml inhalation BID Wheezing 12/16/20 08/31/23 08/30/23 History nebulization albuterol sulfate 2.5 mg/3 mL 2.5 mg inhalation BID 05/11/23 08/31/23 08/30/23 History (0.083 %) solution for nebulization furosemide 20 mg tablet 20 mg PO Q OTHER DAY 05/11/23 08/31/23 08/30/23 History furosemide 40 mg tablet 40 mg PO Q OTHER DAY 05/11/23 08/31/23 08/29/23 History edaravone 105 mg/5 mL oral mg PO 08/31/23 Unknown History suspension (Radicava ORS) riluzole 50 mg tablet 50 mg PO BID@0600,1630 08/31/23 08/31/23 08/30/23 History Physical Exam Vital Signs and Narrative: Vital Signs: Last Vital Signs Temp 98.8 F 09/13/23 17:36 Pulse 70 09/13/23 17:36 Resp 16 09/13/23 17:36 BP 111/58 L 09/13/23 17:36 Pulse Ox 98 09/13/23 17:36 O2 Del Method Room Air 09/13/23 17:36 BMI result Body Mass Index 19.5 Elderly female lying in bed in no distress Neck supple, no JVD Regular rate and rhythm, S1-S2 heard Regular breath sounds bilaterally, no wheezing or crackles appreciated Abdomen soft nontender, no guarding, no rigidity Patient is awake, alert and oriented to self, place, time and person ; slowness of speech +, no focal motor deficit Psych: Normal mood Bilateral lower extremity swelling tenderness to palpation of calf Results Labs 09/13/23 15:33 09/13/23 15:33 Labs: Laboratory Results - last 24 hr 09/13/23 15:33 MCV 90.3 MCH 29.2 MCHC 32.4 RDW 14.1 Plt Count 387 D MPV 9.6 Immature Gran % (Auto) 0.4 Neut % (Auto) 62.5 Lymph % (Auto) 27.6 [place] % (Auto) 8.2 Eos % (Auto) 0.8 Baso % (Auto) 0.5 Lymph # (Auto) 2.0 [place] # (Auto) 0.6 Eos # (Auto) 0.1 Baso # (Auto) 0.0 Abs Immat Gran (auto) 0.03 Absolute Neuts (auto) 4.6 Absolute Nucleated RBC 0.000 Nucleated RBC % (auto) 0.0 Anion Gap 16 Estim Creat Clear Calc 39.0 Estimated GFR > 60 Random Glucose 101 Calcium 9.8 B-Natriuretic Peptide 284 H Imaging Radiologist's Impressions: Impressions Venous Duplex 09/13/23 16:43 IMPRESSION: Extensive bilateral DVT. Assessment and Plan (1) DVT, bilateral lower limbs: Status: Acute Plan This is a 83-year-old female with pertinent history of ALS, congestive heart failure unspecified EF, non-Hodgkin lymphoma in remission, history of CVA, COPD not on home oxygen, mostly bed-bound due to illness who presents to the emergency department for evaluation of lower extremity swelling and pain. #. Acute bilateral DVT: Will admit patient on heparin drip. Consulted vascular surgery, appreciate assistance. Transition to p.o. anticoagulants prior to discharge #. Congestive heart failure, unspecified EF: No decompensation during admission. Continue home diuresis #. History of CVA: On Plavix, ?not on statin #. ALS: On riluzole and Radicava #. COPD: No exacerbation during admission. Continue home inhaler Med rec pending DVT prophylaxis: Heparin DNR/DNI. Discussed with son at bedside Admit as inpatient and will require two night minimum hospital stay for IV heparin (as above), which is not possible in a lesser acute setting. Specialist consult pending Quality Stroke Does the patient have a stroke diagnosis?: No VTE Prior VTE?: No VTE Risk Level:: Medical - moderate - high VTE Device Contraindication: Treatment Not Indicated VTE Drug Contraindication: N/A - Med Ordered
[2023-09-13 20:06] VITALS: BMI 16.5
--- OUTSIDE RECORDS SUMMARY | 2023-09-13 20:19 | XMS_ITS | Continuity of Care Document ---
Author Organization [facility] Riky Zac lt Address [address] [place] [address]- Care Team Providers Care Towel Hemmer Name Role Phone Tray BROWN, Robert Anthony Primary Care Physician [phone] [facility] Date(s): 08/09/23 - 09/08/23 [facility] Adult [address] [place] [address]- Allergies, Adverse Reactions, Alerts Substance Reaction Severity [...] virus vaccine, inactivated 6 02/09/12 Re corded [id number] 12y+ bivalent booster vax 08/15/22 Recorded Influenza Virus Vaccine (oldterm) 7 02/03/22 Recor ded SARS-CoV-2 mRNA ([id number]) vax 08/06/21 Recorded SARS-CoV-2 (COVID-19) mRNA BNT-162b2 [...] Comment: [06/19/2016] [facility] 7Result Comment: influenza at [facility] 8Result Comment: [06/19/2016] [facility] 9Result Comment: [06/19/2016] [facility] 10Result Comment: [06/19/2016] [facility] Medications albuterol 0.083% inhalation solution 3 mL, Inhalation, Every 6 hours, USE ACAPELLA DEVICE AFTER EVERY TREATMENT. J44.9, # 360 mL, 5 Refills, 01/18/23 8:59:00 EDT, [facility][id number], J44.9, 150, cm, 01/11/23 10:59:00 EDT, Height, [...] Status: Ordered clopidogrel 75 mg oral tablet 75 mg, 1, tablet, By Mouth, Daily, # 90 tablet, Refills 3, Tot. Refills 3, Maintenance, 08/29/23 10:33:00 EDT, Route to Pharmacy Electronically, [facility] #[id number], 150, cm, 07/23/23 14:33:00 EDT, Height, 61, kg, 04/17/22 11:31:00 EST, Dry Weight Start Date: 08/29/23 Status: Ordered Lasix 40 mg oral tablet 1, tablet, By Mouth, Daily, # 90 Unknown, Refills 3, Maintenance, 02/08/23 16:25:00 EDT, Route to Pharmacy Electronically, [facility], 150, cm, 01/11/23 10:59:00 EDT, Height, 61, kg, 04/17/22 11:31:00 EST, Dry Weight Start Date: 02/08/23 Status: Ordered Pepcid Complete By Mouth, Every [...] 10/17/21 15:25:00 EDT, Route to Pharmacy Electronically, [id number], [facility] #[id number], 151, cm, 09/29/21 13:12:00 EDT, Hei... Start [...] mL, 5 Refills, Maintenance, 02/11/23 9:46:00 EDT, [facility] #[id number], USE 4 ML VIANEBULIZER TWICE DAILY USE WITH 0.5% TOGETHER IN VIA... Start Date: 02/11/23 Status: Ordered traMADol 50 mg oral tablet 1 tablet = 50 mg, By Mouth, Every 12 hours, PRN for pain, # 30 tablet, 5 Refills, Acute 01/06/24 10:48:00 EDT, 07/06/23 10:47:00 EDT, Tablet, [id number], Partial fill upon patient request if [...] review meeting GFR criteria 6Admission to [facility] for CHF 11/2020. Cardiac MRI: LVEF 44%; 12/16/20 echo at [facility]: LVEF=40-45% 8Per CT w/contrast 12/19/2021: Irregular partially calcified tissue along the distal left main pulmonary artery extending along the regular small caliber left lower lobe pulmonary artery branch probably reflecting chronic thrombus.. [id number] as lung mass. S/P R-CHOP x 6 cycles. Social History Social History Type Response Smoking Status Former smoker entered on: 09/06/14 Sex Patient Care team information Care Team Personnel Name: Manuel Mayes MD Position: [facility] Physician - Pulm/Critical Care Member Role: It Assistant Address: Address: [address] [place] [address] [address] [facility] [place] [address]- [place] Name: Kenneth Chowdary MD Position: [facility] Cardiology MD Member Role: Director Of Operations Home Health Address: Address: [address] [place] [address] [address] [facility] [place] [address]- [place] Name: Robert Feliz MD Position: [facility] Physician - Primary Care Member Role: PCP Address: Address: [address] [place] [id number]- [place] Name: Georgette Silva Position: [facility] Jigger Artisan Member Role: Case Management Social Worker Name: Epi Turner Member Role: Neurologist Name: Mariposa BROWN, Zi Méndez Position: Reference Physician Member Role: [facility] Address: Address: [address] [facility] [address] [facility] [place] [address]- [place] Care Team Related Persons Name: RAMIRO MARR Address: home [address] [place] [id number]
--- OUTSIDE RECORDS SUMMARY | 2023-09-13 20:20 | XMS_ITS | Continuity of Care Document ---
Author Organization [facility] Address [address] [place] [id number]- Care Team Providers Care Bilingual Speech Language Pathologist Name Role Phone Tray BROWN, Robert Anthony Primary Care Physician [phone] Encounter [facility] Date(s): 04/08/21 - 05/08/21 [facility] [address] [place] [id number]- [place] Allergies, Adverse Reactions, Alerts Substance Reaction [...] 3 Refills, Maintenance, 06/27/20 15:48:00 EST, Solution, [facility] #[id number], 151, cm, 02/05/20 7:35:00 EDT, Height Start Date: 06/27/20 Status: Ordered amoxicillin 500 mg oral capsule 4 capsule = 2,000 mg, By Mouth, Once, take 4 capsules prior to dental procedure, # 4 capsule, 5 Refills, Soft Stop, 05/06/21 17:27:00 EST, [facility] #[id number], 151, cm, 05/05/21 12:08:00 EST,Height Start Date: [...] Replace Required Details, Route to Pharmacy Electronically, [facility] #[id number], 151, cm, 03/07/21 9:27:00 EST, Height Start Date: 04/15/21 Status: Ordered Hyper-Don 7% inhalation solution 4 mL = 0.28 Gm, Neb, 2 times a day, take with 0.5ml = 2.5 mg albuterol (add hypersal 4ml to 0.5ml albuterol) twice a day, # 240 mL, 11 Refills, Maintenance, 08/07/20 9:58:00 EDT, [facility][id number], J47.0 bronchiectasis, 4 mL Neb 2 times [...] 1, tablet, By Mouth, Daily, prescribed by [facility] doctor 12/18/20, # 30 tablet, Refills 5, Tot. Refills 5, Maintenance, 04/16/21 11:55:00 EST, Route to Pharmacy Electronically, [facility] #[id number], Partial fill upon patient request if th... Start Date: 04/16/21 Status: Ordered losartan 25 mg oral tablet 12.5 mg, 0.5, tablet, By Mouth, Daily, Take 0.5 tablet (12.5mg) daily, # 15 tablet, Refills 11, Tot. Refills 11, Maintenance, 02/05/21 8:59:00 EDT, Route to Pharmacy Electronically, [facility] #[id number], Partial fill upon patient request if the... Start Date: 02/05/21 Status: Ordered meloxicam 7.5 mg oral tablet 1 tablet, By Mouth, Daily, # 90 tablet, 0 Refills, [facility] #[id number], 151, cm, 12/27/20 8:19:00 EDT, Height Start [...] 01/10/21 13:45:00 EDT, Route to Pharmacy Electronically, [facility] #[id number], Partial fill upon patientrequest if the prescription is for a schedule II op... Start Date: 01/10/21 Status: Ordered ProAir HFA 90 mcg/inh inhalation aerosol with adapter 2, puffs, Inhalation, 4 times a day, PRN, # 1 each, Refills 6, Tot. Refills 6, Maintenance, 08/26/20 14:10:00 EDT, Route to Pharmacy Electronically, [id number], [facility] #[id number], 151, cm, 08/26/20 13:26:00 EDT, Height Start Date: 08/26/20 Status: Ordered rosuvastatin 5 mg oral tablet 1 tablet = 5 mg, By Mouth, Daily, # 30 tablet, 5 Refills, Maintenance, 04/08/21 9:24:00 EST, Tablet, [facility] #[id number], 151, cm, 03/07/21 9:27:00 EST, Height Start Date: 04/08/21 Stop Date: 10/05/21 Status: Ordered Trelegy Ellipta 200 mcg-62.5 mcg-25 mcg/inh inhalation powder 1 puffs, Inhalation, Daily, at the same time every day, # 1 each, 6 Refills, Maintenance, 12/06/20 9:31:00 EDT, Powder, [facility] #[id number], Partial fill upon patient request if the [...]
--- OUTSIDE RECORDS SUMMARY | 2023-09-13 20:20 | XMS_ITS | Continuity of Care Document ---
Author Organization [facility] Riky Zac lt Address [address] [place] [address]- Care Team Providers Care Motor Grader Rough Grade Name Role Phone Tray BROWN, Robert Anthony Primary Care Physician Encounter [facility] Date(s): 08/09/23 - 09/08/23 [facility] Adult [address] [place] [address]- Allergies, Adverse Reactions, Alerts Substance Reaction Severity [...] virus vaccine, inactivated 6 02/09/12 Re corded [id number] 12y+ bivalent booster vax 08/15/22 Recorded Influenza Virus Vaccine (oldterm) 7 02/03/22 Recor ded SARS-CoV-2 mRNA (deyfcgu-xsjp-iiazm) vax 08/06/21 Recorded SARS-CoV-2 (COVID-19) mRNA BNT-162b2 [...] Comment: [06/19/2016] [facility] 7Result Comment: influenza at [facility] 8Result Comment: [06/19/2016] [facility] 9Result Comment: [06/19/2016] [facility] 10Result Comment: [06/19/2016] [facility] Medications albuterol 0.083% inhalation solution 3 mL, Inhalation, Every 6 hours, USE ACAPELLA DEVICE AFTER EVERY TREATMENT. J44.9, # 360 mL, 5 Refills, 01/18/23 8:59:00 EDT, [facility] #[id number], J44.9, 150, cm, 01/11/23 10:59:00 EDT, Height, [...] 08/29/23 10:33:00 EDT, Route to Pharmacy Electronically, [facility]/pharmacy #[id number], 150, cm, 07/23/23 14:33:00 EDT, Height, 61, kg, 04/17/22 11:31:00 EST, Dry Weight Start Date: 08/29/23 Status: Ordered Lasix 40 mg oral tablet 1, tablet, By Mouth, Daily, # 90 Unknown, Refills 3, Maintenance, 02/08/23 16:25:00 EDT, Route to Pharmacy Electronically, [facility], 150, cm, 01/11/23 10:59:00 EDT, Height, [...] 10/17/21 15:25:00 EDT, Route to Pharmacy Electronically, [id number], [facility] #[id number], 151, cm, 09/29/21 13:12:00 EDT, Hei... Start [...] mL, 5 Refills, Maintenance, 02/11/23 9:46:00 EDT, [facility] #[id number], USE 4 ML VIANEBULIZER TWICE DAILY USE [...] chart review meeting GFR criteria 6Admission to [facility] for [place]F 11/2020. Cardiac MRI: LVEF 44%; 12/16/20 echo at [facility]: LVEF=40-45% 8Per CT w/contrast 12/19/2021: Irregular partially calcified tissue along the distal left main pulmonary artery extending along the regular small caliber left lower lobe pulmonary artery branch probably reflecting chronic thrombus.. 12901-Bwieycuxg as lung mass. S/P R-CHOP x 6 cycles. Social History Social History Type Response Smoking Status Former smoker entered on: 09/06/14 Sex Patient Care team information Care Team Personnel Name: Manuel Mayes MD Position: [facility] Physician - Pulm/Critical Care Member Role: Microfilm Technician Address: Address: [address] [place] [address] [address] [facility] [place] [address]- [place] Name: Kenneth Chowdary MD Position: [facility] Cardiology MD Member Role: Rubber Calender Helper Address: Address: [address] [place] [address] [address] [facility] [place] [address]- [place] Name: Robert Feliz MD Position: [facility] Physician - Primary Care Member Role: PCP Address: Address: [address] [place] [address]- [place] Name: Georgette Silva Position: [facility] [employer] Humanities Teacher Member Role: Doll Wig Maker Rooted Hair Name: Epi Turner Member Role: Neurologist Name: Mariposa BROWN, Zi Méndez Position: Reference Physician Member Role: Mail Order Biller Address: Address: [address] [facility] [address] [facility] [place] [address]- [place] Care Team Related Persons Name: RAMIRO MARR Address: home [address] [place] [address]
--- OUTSIDE RECORDS SUMMARY | 2023-09-13 20:23 | XMS_ITS | Continuity of Care Document ---
Author Organization [facility] Riky Zac lt Address [address] [place] [address]- Care Team Providers Care City Letter Carrier Name Role Phone Tray BROWN, Robert Anthony Primary Care Physician [id number] Date(s): 08/02/23 - 09/01/23 [facility] Adult [address] [place] [address]- Allergies, Adverse Reactions, Alerts Substance Reaction Severity [...] virus vaccine, inactivated 6 02/09/12 Re corded [id number] 12y+ bivalent booster vax 08/15/22 Recorded Influenza Virus Vaccine (oldterm) 7 02/03/22 Recor ded SARS-CoV-2 mRNA (wnxzslg-xptf-toubg) vax 08/06/21 Recorded SARS-CoV-2 (COVID-19) mRNA BNT-162b2 [...] Comment: [06/19/2016] [facility] 7Result Comment: influenza at [facility] 8Result Comment: [06/19/2016] [facility] 9Result Comment: [06/19/2016] [facility] 10Result Comment: [06/19/2016] [facility] Medications albuterol 0.083% inhalation solution 3 mL, Inhalation, Every 6 hours, USE ACAPELLA DEVICE AFTER EVERY TREATMENT. J44.9, # 360 mL, 5 Refills, 01/18/23 8:59:00 EDT, [facility] #[id number], J44.9, 150, cm, 01/11/23 10:59:00 EDT, Height, 61, kg, 04/17/22 11:31:00 EST, Dry Weight Start Date: 01/18/23 Status: Ordered bisoprolol 5 mg oral tablet See Instructions, TAKE 1/2 TABLET DAILY, # 45 Unknown, 0 Refills, Maintenance, 02/22/23 7:49:00 EDT, [facility], 150, cm, 01/11/23 10:59:00 EDT, Height, 61, kg, 04/17/22 11:31:00 EST, Dry Weight Start Date: 02/22/23 Status: Ordered clopidogrel 75 mg oral tablet 75 mg, 1, tablet, By Mouth, Daily, # 90 tablet, Refills 3, Tot. Refills 3, Maintenance, 08/29/23 10:33:00 EDT, Route to Pharmacy Electronically, [facility]/pharmacy #[id number], 150, cm, 07/23/23 14:33:00 EDT, Height, 61, kg, 04/17/22 11:31:00 EST, Dry Weight Start Date: 5/5/24 Status: Ordered Lasix 40 mg oral tablet [...] 10/17/21 15:25:00 EDT, Route to Pharmacy Electronically, [id number], [facility] #[id number], 151, cm, 09/29/21 13:12:00 EDT, Hei... Start [...] mL, 5 Refills, Maintenance, 02/11/23 9:46:00 EDT, [facility] #12363, USE 4 ML VIANEBULIZER TWICE DAILY USE [...] chart review meeting GFR criteria 6Admission to [facility] [place] 11/2020. Cardiac MRI: LVEF 44%; 12/16/20 echo at [facility]: LVEF=40-45% 8Per CT w/contrast 12/19/2021: Irregular partially calcified tissue along the distal left main pulmonary artery extending along the regular small caliber left lower lobe pulmonary artery branch probably reflecting chronic thrombus.. [id number]-Qfjfjshdl as lung mass. S/P R-CHOP x 6 cycles. Social History Social History Type Response Smoking Status Former smoker entered on: 09/06/14 Sex Patient Care team information Care Team Personnel Name: Manuel Mayes MD Position: [facility] Physician - Pulm/Critical Care Member Role: Heater Tender Address: Address: [address] [place] [address] [address] [facility] [place] [address]- [place] Name: Kenneth Chowdary MD Position: [facility] Cardiology MD Member Role: Outbound Sales Executive Address: Address: [address] [place] [address] [address] [facility] [place] [address]- [place] Name: Tray BROWN, Robert Anthony Position: [facility] Physician - Primary Care Member Role: PCP Address: Address: [address] [place] [address]- [place] Name: Georgette Silva Position: [facility] Bottle Tester Member Role: Environmental Research Scientist Name: Epi Turner Member Role: Neurologist Name: Mariposa BROWN, Zi Méndez Position: Reference Physician Member Role: Statistical Reporting Analyst Address: Address: [address] [place] [address] [address] [facility] [place] [address]- [place] Care Team Related Persons Name: RAMIRO MARR Address: home [address] [place] [address]
--- OUTSIDE RECORDS SUMMARY | 2023-09-13 20:23 | XMS_ITS | Continuity of Care Document ---
Author Organization [facility] Riky Zac lt Address [address] [place] [address]- Care Team Providers Care Hot Billet Shear Operator Name Role Phone Tray BROWN, Robert Anthony Primary Care Physician Encounter [facility] Date(s): 08/04/23 - 09/03/23 [facility] Adult [address] [place] [address]- Allergies, Adverse Reactions, Alerts Substance Reaction Severity [...] virus vaccine, inactivated 6 02/09/12 Re corded [id number] 12y+ bivalent booster vax 08/15/22 Recorded Influenza Virus Vaccine (oldterm) 7 02/03/22 Recor ded SARS-CoV-2 mRNA (dakwxwg-xjir-biyxq) vax 08/06/21 Recorded SARS-CoV-2 (COVID-19) mRNA BNT-162b2 [...] Comment: [06/19/2016] [facility] 7Result Comment: influenza at [facility] 8Result Comment: [06/19/2016] [facility] 9Result Comment: [06/19/2016] [facility] 10Result Comment: [06/19/2016] [facility] Medications albuterol 0.083% inhalation solution 3 mL, Inhalation, Every 6 hours, USE ACAPELLA DEVICE AFTER EVERY TREATMENT. J44.9, # 360 mL, 5 Refills, 01/18/23 8:59:00 EDT, [facility] #[id number], J44.9, 150, cm, 01/11/23 10:59:00 EDT, Height, 61, kg, 04/17/22 11:31:00 EST, Dry Weight Start Date: 01/18/23 Status: Ordered bisoprolol 5 mg oral tablet See Instructions, TAKE 1/2 TABLET DAILY, # 45 Unknown, 0 Refills, Maintenance, 02/22/23 7:49:00 EDT, [facility], 150, cm, 01/11/23 10:59:00 EDT, Height, 61, kg, 04/17/22 11:31:00 EST, Dry Weight Start Date: 02/22/23 Status: Ordered clopidogrel 75 mg oral tablet 75 mg, 1, tablet, By Mouth, Daily, # 90 tablet, Refills 3, Tot. Refills 3, Maintenance, 08/29/23 10:33:00 EDT, Route to Pharmacy Electronically, [facility]/pharmacy #[id number], 150, cm, 07/23/23 14:33:00 EDT, [...] 10/17/21 15:25:00 EDT, Route to Pharmacy Electronically, [id number], [facility] #[id number], 151, cm, 09/29/21 13:12:00 EDT, Hei... Start [...] mL, 5 Refills, Maintenance, 02/11/23 9:46:00 EDT, [facility] #31579, USE 4 ML VIANEBULIZER TWICE DAILY USE WITH 0.5% TOGETHER IN VIA... Start Date: 02/11/23 Status: Ordered traMADol 50 mg oral tablet 1 tablet = 50 mg, By Mouth, Every 12 hours, PRN for pain, # 30 tablet, 5 Refills, Acute 01/06/24 10:48:00 EDT, 03/12/24 10:47:00 EDT, Tablet, [id number], Partial fill [...] chart review meeting GFR criteria 6Admission to [facility] for CHF 11/2020. Cardiac MRI: LVEF 44%; 12/16/20 echo at [facility]: LVEF=40-45% 8Per CT w/contrast 12/19/2021: Irregular partially calcified tissue along the distal left main pulmonary artery extending along the regular small caliber left lower lobe pulmonary artery branch probably reflecting chronic thrombus.. [id number]-Buhrfwmcb as lung mass. S/P R-CHOP x 6 cycles. Social History Social History Type Response Smoking Status Former smoker entered on: 09/06/14 Sex Patient Care team information Care Team Personnel Name: Manuel Mayes MD Position: [facility] Physician - Pulm/Critical Care Member Role: Application Development Specialist Address: Address: [address] [place] [address] [address] [facility] [place] [address]- Name: Kenneth Chowdary MD Position: [facility] Cardiology MD Member Role: Laundry Tub Maker Address: Address: [address] [place] [address] [address] [facility] [place] [address]- [place] Name: Tray BORWN, Robert Anthony Position: [facility] Physician - Primary Care Member Role: PCP Address: Address: [address] [place] [address]- [place] Name: Georgette Silva Position: [facility] Professional Bass Fisher Member Role: Ict Development Manager Name: Epi Turner Member Role: Neurologist Name: Mariposa BROWN, Zi Méndez Position: Reference Physician Member Role: Mottle Lay Up Operator Address: Address: [address] [place] [address] [address] [facility] [place] [address]- [place] Care Team Related Persons Name: RAMIRO MARR Address: home [address] [place] [address]
--- OUTSIDE RECORDS SUMMARY | 2023-09-13 20:25 | XMS_ITS | Continuity of Care Document ---
Author Organization [facility] Zac lt Address [address] [place] [address]- Care Team Providers Care Registered Health Nurse Name Role Phone Tray BROWN, Robert Anthony Primary Care Physician Encounter [facility] Date(s): 06/12/21 - 07/12/21 [facility] Adult [address] [place] [address]- Allergies, Adverse Reactions, Alerts Substance Reaction Severity [...] 3 Refills, Maintenance, 06/27/20 15:48:00 EST, Solution, [facility] #[id number], 151, cm, 02/05/20 7:35:00 EDT, Height Start [...] 5 Refills, Soft Stop, 05/06/21 17:27:00 EST, [facility] #[id number], 151, cm, 05/05/21 12:08:00 EST,Height Start Date: [...] Stop 08/02/21 9:58:00 EDT, 08/07/20 9:58:00 EDT, [facility] #89536, J47.0 [facility]... Start Date: 08/07/20 Stop Date: 08/02/21 Status: Ordered Hyper-Don 7% inhalation solution 4 mL = 0.28 Gm, Neb, 2 times a day, take with 0.5ml = 2.5 mg albuterol (add hypersal 4ml to 0.5ml albuterol) twice a day, # 720 mL, 1 Refills, Maintenance, 08/02/21 9:58:00 EDT, [facility], J47.0 bronchiectasis, 4 mL Neb [...] [facility] 12/18/20, # 90 tablet, Refills [...] Mouth, Daily, # 90 tablet, 0 Refills, [facility] #72854, 151, cm, 12/27/20 8:19:00 EDT, Height Start [...] 01/10/21 13:45:00 EDT, Route to Pharmacy Electronically, [facility] #[id number], Partial fill upon patientrequest if the prescription is for a schedule II op... Start Date: 01/10/21 Status: Ordered ProAir HFA 90 mcg/inh inhalation aerosol with adapter 2, puffs, Inhalation, 4 times a day, PRN, # 1 each, Refills 6, Tot. Refills 6, Maintenance, 08/26/20 14:10:00 EDT, Route to Pharmacy Electronically, [id number], [facility] #32323, 151, cm, 08/26/20 13:26:00 EDT, Height Start Date: 08/26/20 Status: Ordered rosuvastatin 5 mg oral tablet 1 tablet = 5 mg, By Mouth, Daily, # 30 tablet, 5 Refills, Maintenance, 04/08/21 9:24:00 EST, [id number], 151, cm, 03/07/21 9:27:00 EST, Height Start Date: 04/08/21 Stop Date: 10/05/21 Status: Ordered Sodium Chloride, Inhalation 0.9% inhalation solution 4 mL = 0.036 Gm, Neb, 2 times a day, use with 0.5% albuterol solution together in nebulizer, # 240 mL, 6 Refills, Maintenance, 06/12/21 19:39:00 EST, [facility] #[id number], Partial fill upon patient request if the [...]
--- OUTSIDE RECORDS SUMMARY | 2023-09-13 20:26 | XMS_ITS | Continuity of Care Document ---
Author Organization [facility] Zac lt Address [address] [place] [address]- Care Team Providers Care Junior Oracle Dba Name Role Phone Robert Feliz MD Primary Care Physician [id number] Date(s): 08/30/23 - 09/06/23 [facility] Adult [address] [place] [address]- Encounter Diagnosis Impaired mobility and ADLs(Discharge Diagnosis) - 08/31/23 ALS (amyotrophic lateral sclerosis)(Discharge Diagnosis) - 08/31/23 Attending Physician: Robert Feliz MD Allergies, Adverse [...] virus vaccine, inactivated 6 02/09/12 Re corded [id number] 12y+ bivalent booster vax 08/15/22 Recorded Influenza Virus Vaccine (oldterm) 7 02/03/22 Recor ded SARS-CoV-2 mRNA (qxnmpra-ckog-pswid) vax 08/06/21 Recorded SARS-CoV-2 (COVID-19) mRNA BNT-162b2 [...] [facility] 7Result Comment: influenza at [facility] 8Result Comment: [06/19/2016] [facility] 9Result Comment: [06/19/2016] [facility] 10Result Comment: [06/19/2016] [facility] Medications albuterol 0.083% inhalation solution 3 mL, Inhalation, Every 6 hours, USE ACAPELLA DEVICE AFTER EVERY TREATMENT. J44.9, # 360 mL, 5 Refills, 01/18/23 8:59:00 EDT, [facility] #68816, J44.9, 150, cm, 01/11/23 10:59:00 EDT, Height, [...] 08/29/23 10:33:00 EDT, Route to Pharmacy Electronically, [facility]/pharmacy #[id number], 150, cm, 07/23/23 14:33:00 EDT, Height, 61, kg, 04/17/22 11:31:00 EST, Dry Weight Start Date: 08/29/23 Status: Ordered Lasix 40 mg oral tablet 1, tablet, By Mouth, Daily, # 90 Unknown, Refills 3, Maintenance, 02/08/23 16:25:00 EDT, Route to Pharmacy Electronically, [facility], 150, cm, 01/11/23 10:59:00 EDT, Height, [...] 10/17/21 15:25:00 EDT, Route to Pharmacy Electronically, [id number], [facility] #62994, 151, cm, 09/29/21 13:12:00 EDT, Hei... Start [...] mL, 5 Refills, Maintenance, 02/11/23 9:46:00 EDT, [facility] #70769, USE 4 ML VIANEBULIZER TWICE DAILY USE [...] chart review meeting GFR criteria 6Admission to [facility] for CHF 11/2020. Cardiac MRI: LVEF 44%; 12/16/20 echo at [facility]: LVEF=40-45% 8Per CT w/contrast 12/19/2021: Irregular partially calcified tissue along the distal left main pulmonary artery extending along the regular small caliber left lower lobe pulmonary artery branch probably reflecting chronic thrombus.. [id number]-Thsylwjzb as lung mass. S/P R-CHOP x 6 cycles. Diagnosis Diagnosis Type Effective Dates Health Status Cl inical Service Informant Impaired mobility and ADLs Discharge Diagnosis 08/31/23 ALS (amyotrophic lateral sclerosis) Discharge Diagnosis 08/31/23 Vital Signs Most recent to oldest [Reference Range]: 1 Height 150.0 cm (08/30/23 3:05 PM) Blood Pressure [90-138/55-84 mm Hg] 110/ 60mm Hg (08/30/23 3:05 PM) Social History Social History Type Response Smoking Status Former smoker entered on: 09/06/14 Sex Patient Care team information Care Team Personnel Name: Manuel Mayes MD Position: [facility] Physician - Pulm/Critical Care Member Role: Vending Machine Assembler Address: Address: [address] [place] [address] [address] [place] [address]- Name: Kenneth Chowdary MD Position: [facility] Cardiology MD Member Role: Instrument Tester Address: Address: [address] [place] [address] [address] [place] [address]- Name: Robert Feliz MD Position: [facility] Physician - Primary Care Member Role: PCP Address: Address: [address] [place] [address]- Name: Georgette Silva Position: [facility] Photographer Assistant Member Role: Exchange Specialist Name: Epi Turner Member Role: Neurologist Name: Mariposa BROWN, Zi Méndez Position: Reference Physician Member Role: Improvement Nurse Address: Address: [address] [place] [address] [address] [facility] [place] [address]- [place] Care Team Related Persons Name: RAMIRO MARR Address: home [address] [place] [address]
[2023-09-13 20:35] LABS: INTERNATIONAL NORM RATIO 0.9 (0.9-1.1)
[2023-09-13 20:37] LABS: PTT Heparin Drip 29.6 SEC (53-77.9)
[2023-09-13 20:55] VITALS: BP 113/60; PULSE 75; RESP 16; O2SAT 95
[2023-09-13] MEDS: Heparin Sodium,Porcine/1/2NS 25,000 UNIT/250 ML IV.SOLN 5.19 UNIT IVCONT (21:01)
--- NOTE | 2023-09-13 21:48 | PC.NURSE ---
Heparin drip started. No bleeding or bruising noted. Pt tolerating well. Next HD-Ptt lab draw due 09/14/2023 @ 0300. Monitoring ongoing.
[2023-09-13 22:06] VITALS: BP 111/56; PULSE 75; RESP 17; TEMP 36.7; O2SAT 94
--- NOTE | 2023-09-13 22:25 | PHA.MEDREC ---
Pharmacy Consult ? Medication Reconciliation Pharmacy has completed the medication reconciliation. Spoke to patient at bedside, let her know we didn't carry the ALS medications she is currently taking and she asked me to call her son Mode ([phone]) and I spoke with him to ask him to bring in her Nuedexta, Radicava (which she states she just has one more day left of) and her riluzole. He stated he would be in tomorrow 09/13 to bring them
[2023-09-13 23:51] VITALS: BP 122/70; PULSE 74; RESP 16; TEMP 36.2; O2SAT 95
[2023-09-14] VITALS (10 sets, daily range): BP systolic 114–174; BP diastolic 49–87; PULSE 59–94; RESP 13–20; TEMP 36.3–36.8; O2SAT 92–98
[2023-09-14 03:29] LABS: Hematocrit 28.8 % (37.0-47.0); Hemoglobin 9.6 g/dl (12.0-16.0); Mean Corpuscular HGB Conc 33.3 g/dl (31.0-35.0); Mean Corpuscular Hemoglobin 29.7 pg (27.0-33.0); Mean Corpuscular Volume 89.2 fL (80.0-98.0); Mean Platelet Volume 9.9 fL (9.4-12.3); Platelet Count 334 X10*3/uL (160-400); Red Blood Count 3.23 X10*6/uL (4.20-5.50); Red Cell Distribution Width 13.9 % (11.0-16.0); White Blood Count 6.4 X10*3/uL (4.8-10.8)
[2023-09-14 03:35] LABS: INTERNATIONAL NORM RATIO 0.9 (0.9-1.1); Prothrombin Time 11.4 SEC (11.1-13.3)
[2023-09-14 03:37] LABS: PTT Heparin Drip 62.5 SEC (53-77.9)
[2023-09-14 03:42] LABS: Anion Gap 17 (12-20); Blood Urea Nitrogen 12 mg/dL (9-16); Calcium 9.3 mg/dL (8.4-10.2); Carbon Dioxide 27 mmol/L (22-29); Chloride 102 mmol/L (96-108); Creatinine Clr Calc Pharmacy 36.4; Estimated Glomerular Filt Rate > 60; Glucose Random 94 mg/dL (60-115); Potassium 3.1 mmol/L (3.3-5.1); Sodium 143 mmol/L (135-145)
--- NOTE | 2023-09-14 04:17 | PC.NURSE ---
PTT-HD 62.5 Per protocol no bolus and not rate change at this time. Next PTT-HD to be drawn @ 0900. Ordered placed in the JUN.
--- NOTE | 2023-09-14 08:58 | PC.NURSE ---
patient is resting quietly in ED bed, VSS, respirations equal and unlabored. skin dry and intact. patient currently on heparin GTT 14u/kg/hr, next draw 0900. patient is alert and oriented x3. patient has bilat pedal pulses, normal cap refill. patient states her left leg aches, patient legs are noted to be normal skin tone for ethnicity, patient states that her legs look less swollen then they did the day prior.
[2023-09-14 09:28] LABS: PTT Heparin Drip 55.3 SEC (53-77.9)
--- NOTE | 2023-09-14 10:13 | P.CONGS_ITS ---
History of Present Illness Consult details Consult date: 09/14/23 Reason for consult: other (DVT) Narrative: Very pleasant 83-year-old female with a history of ALS and a prior history of non-Hodgkin's lymphoma which is in remission reported that she had lower extremity swelling and pain. This began about a week prior to her presentation to the emergency room last night. She noted some swelling and discomfort along with some redness of the lower extremities. At that time her son forced her to come to the emergency room. She was discovered to have extensive bilateral DVTs. She was subsequently admitted and placed on a heparin drip. Review of Systems 2 Constitutional: Constitutional: Reports as per HPI ENT: Reports system reviewed and no additional complaints, except as documented Cardiovascular: Cardiovascular: Denies chest pain, Denies chest pain at rest and Denies chest pain with activity Respiratory: Respiratory: Denies chest congestion and Denies cough Gastrointestinal: Gastrointestinal: Reports no additional gastrointestinal complaints Musculoskeletal: Musculoskeletal: Denies abnormal gait Integumentary/Breasts: Skin/Breast: Reports pruritus and Denies wounds Neurologic: Reports system reviewed and no additional complaints, except as documented and Denies abnormal gait Psychiatric: Psychiatric: Denies no additional psychiatric complaints FOR[facility]LY [facility], [facility] Past Medical History Medical History Cici Gehrig disease Shortness of breath Pleural effusion CVA (cerebral vascular accident) Knee abrasion Stroke due to embolism Pneumonia Heart failure TIA (transient ischemic attack) Non-Hodgkin lymphoma in remission COPD (chronic obstructive pulmonary disease) Surgical History Surgical History Total knee replacement status Social History Social History Housing: House Do you presently have visiting nurse or other home services: No Patient Tobacco Use Status: Former Tobacco user Tobacco use type: Cigarette Smoked in Last 30 Days: No Use of substances other than those prescribed or required for medical reasons: No Advance Directives: Yes Advance Directives on File: Yes Advance Directives Date on File: 08/31/23 Do you have a plan to hurt others: No Plan Nutrition Risks: Anorexia service: No Current occupational status: retired Meds Allergies Allergy/AdvReac Type Severity Reaction Status Date / Time codeine Allergy Unknown Verified 09/13/23 15:15 fish derived [fish] Allergy Nausea and Verified 09/13/23 15:15 Vomiting Sulfa (Sulfonamide Allergy Unknown Verified 09/13/23 15:15 Antibiotics) tetanus and diphtheria Allergy Unknown Verified 09/13/23 15:15 toxoids Active Medications: Current Medications Acetaminophen (Acetaminophen 325 Mg Tablet) 650 mg PO Q6H PRN PRN Reason: Pain, Mild (Pain Scale 1-3) Heparin Sodium (Porcine) (Heparin Sodium,Porcine 5,000 Unit/Ml Vial) 1,500 unit 40 unit/kg (1500 unit) IVPUSH PROTOCOL BOLUS PRN; Protocol PRN Reason: 40 unit/kg - Heparin Protocol Heparin Sodium (Porcine) (Heparin Sodium,Porcine 5,000 Unit/Ml Vial) 3,000 unit 80 unit/kg (3000 unit) IVPUSH PROTOCOL BOLUS PRN; Protocol PRN Reason: 80 unit/kg - Heparin Protocol Heparin Sodium/Sodium Chloride (Heparin Sodium,Porcine/1/2ns) 25,000 unit in 250 mls @ 0 mls/hr IVCONT .Q0M [facility]; Protocol Last Titration: 09/14/23 09:40 Dose: 13.99 units/kg/hr, 5.19 mls/hr Melatonin (Melatonin 3 Mg Tablet) 6 mg PO BEDTIME PRN PRN Reason: Insomnia Ondansetron HCl (Ondansetron Hcl 4 Mg/2 Ml Vial) 4 mg IVPUSH Q8H PRN PRN Reason: Nausea and Vomiting Sodium Chloride (0.9 % Sodium Chloride Flush 3 Ml Syringe) [facility] Last Admin: 09/14/23 07:40 Dose: Not Given Home Medications ?Medication ?Instructions ?Recorded ?Confirmed ?Last Taken ?Type bisoprolol fumarate 5 mg tablet 0.5 tab PO DAILY 12/16/20 09/13/23 08/30/23 History fluticasone fur. 200 mcg-umeclid 1 puff inhalation DAILY 12/16/20 09/13/23 09/13/23 History 62.5 mcg-vilant 25 mcg inhalat.powder (Trelegy Ellipta) sodium chloride 7 % for 4 ml inhalation BID Wheezing 12/16/20 09/13/23 09/13/23 History nebulization albuterol sulfate 2.5 mg/3 mL 2.5 mg inhalation BID 05/11/23 09/13/23 09/13/23 History (0.083 %) solution for nebulization furosemide 20 mg tablet 20 mg PO Q OTHER DAY 05/11/23 09/13/23 09/13/23 History furosemide 40 mg tablet 40 mg PO Q OTHER DAY 05/11/23 09/13/23 09/12/23 History edaravone 105 mg/5 mL oral 105 mg PO DAILY 08/31/23 09/13/23 09/13/23 History suspension (Radicava ORS) riluzole 50 mg tablet 50 mg PO BID@0600,1630 08/31/23 09/13/23 09/13/23 History dextromethorphan 20 mg-quinidine 1 cap PO Q12H 09/13/23 09/13/23 09/13/23 History 10 mg capsule (Nuedexta) guaifenesin 600 mg tablet, 1,200 mg PO BID 09/13/23 09/13/23 Unknown History extended release 12 hr (Mucinex) tramadol 50 mg tablet 50 mg PO Q12H PRN pain 09/13/23 09/13/23 09/13/23 History Physical Exam 2 Vital Signs: Vital Signs: Last Vital Signs Temp 97.7 F 09/14/23 08:46 Pulse 61 09/14/23 08:46 Resp 15 09/14/23 08:46 BP 115/49 L 09/14/23 08:46 Pulse Ox 98 09/14/23 08:46 O2 Del Method Room Air 09/14/23 08:46 BMI result Body Mass Index 16.5 Const: General: cooperative, healthy appearing and comfortable O rientation/consciousness: oriented to person, oriented to place and oriented to time Neck: Carotids: no bruits Chest: Chest palpation & inspection: normal inspection of the chest and normal palpation of entire chest wall Resp: Effort & Inspection: normal respiratory effort and able to speak in complete sentences Cardio: Rate: regular rate Heart sounds: S1 normal heart sound present and S2 normal heart sound present Peripheral pulses: Peripheral pulses 2+ throughout GI: Inspection: Yes normal to inspection Skin: Other: +2 edema, left greater than right General skin exam: dry skin Neuro: General: oriented to person, oriented to place and oriented to time Extrem: Right lower extremity: full ROM, normal capillary refill and edema Left lower extremity: full ROM, normal capillary refill and edema Psych: Mental Status: mental status grossly normal Results Labs 09/14/23 03:09 09/14/23 03:09 Labs: Abnormal lab results 09/13/23 09/13/23 09/14/23 Range/Units 15:33 20:18 03:09 RBC 3.49 L 3.23 L (4.20-5.50) X10*6/uL Hgb 10.2 L 9.6 L (12.0-16.0) g/dl Hct 31.5 L 28.8 L (37.0-47.0) % PT 11.0 L (11.1-13.3) SEC aPTT Heparin Protocol 29.6 L (53-77.9) SEC Potassium 3.1 L (3.3-5.1) mmol/L B-Natriuretic Peptide 284 H (<100) pg/mL Short CBC 09/13/23 09/14/23 Range/Units 15:33 03:09 WBC 7.4 6.4 (4.8-10.8) X10*3/uL Hgb 10.2 L 9.6 L (12.0-16.0) g/dl Hct 31.5 L 28.8 L (37.0-47.0) % Plt Count 387 D 334 (160-400) X10*3/uL BMP 09/13/23 09/14/23 15:33 03:09 Sodium 140 143 Potassium 3.6 3.1 L Chloride 99 102 Carbon Dioxide 29 27 BUN 13 12 Creatinine 0.77 0.71 Calcium 9.8 9.3 All other labs normal. Imaging Additional studies: Lower extremity venous ultrasound bilateral DVT written report images were reviewed. Assessment and Plan (1) DVT, bilateral lower limbs: Qualifiers: Affected thrombotic vein of extremity: femoral Chronicity: acute Q ualified Code(s): I82.413 - Acute embolism and thrombosis of femoral vein, bilateral Status: Acute Plan In short patient has extensive bilateral lower extremity DVT. This is acute in nature. She will require bilateral lower extremity mechanical venous thrombectomy. Risks benefits complications were discussed in detail with the patient. She understood and consented. We will move forward and plan for surgery for tomorrow. Procedures Date of Service Date of Service: 09/14/23
--- NOTE | 2023-09-14 12:47 | MHC.CM.PN ---
CM met with Patient at bedside, in the ED and addressed IMM with her (original was given to Patient and a copy has been placed on the chart). Patient lives alone in a house and she uses a motorized w/c to assist with mobility. Patient is active with [employer] and she has 24/7 privately hired caregivers from [facility] ([place], [place]).Home/resume said services is the goal and CM has initiated and will follow for dc planning. Patient will require BLS transport to home. Patient's Son/Mode is the HCP and PCP is Dr. Feliz.
--- NOTE | 2023-09-14 13:52 | P.PNIM_ITS ---
Subjective Subjective Date of Service: 09/14/23 Review of Systems Follow up DVT no pain or discomfort Physical Exam 2 Vital Signs: Vital Signs: Last Vital Signs Temp 97.8 F 09/14/23 12:20 Pulse 64 09/14/23 12:20 Resp 14 09/14/23 12:20 BP 137/69 09/14/23 12:35 Pulse Ox 98 09/14/23 12:20 O2 Del Method Room Air 09/14/23 12:20 BMI result Body Mass Index 16.5 Appearing in no acute distress lung sounds are clear to auscultation heart regular rate rhythm, clear S1, S2 positive bowel sounds, abdomen is soft, nontender neuro patient is alert x3, no focal deficits Objective Data Active Medications Acetaminophen (Acetaminophen 325 Mg Tablet) 650 mg PO Q6H PRN PRN Reason: Pain, Mild (Pain Scale 1-3) Heparin Sodium (Porcine) (Heparin Sodium,Porcine 5,000 Unit/Ml Vial) 1,500 unit 40 unit/kg (1500 unit) IVPUSH PROTOCOL BOLUS PRN; Protocol PRN Reason: 40 unit/kg - Heparin Protocol Heparin Sodium (Porcine) (Heparin Sodium,Porcine 5,000 Unit/Ml Vial) 3,000 unit 80 unit/kg (3000 unit) IVPUSH PROTOCOL BOLUS PRN; Protocol PRN Reason: 80 unit/kg - Heparin Protocol Heparin Sodium/Sodium Chloride (Heparin Sodium,Porcine/1/2ns) 25,000 unit in 250 mls @ 0 mls/hr IVCONT .Q0M [facility]; Protocol Last Titration: 09/14/23 09:40 Dose: 13.99 units/kg/hr, 5.19 mls/hr Documented By: DOMINGUEZ Co-signed By: MARIA DE JESUS Sodium Chloride (Ns) 1,000 mls @ 100 mls/hr IVCONT .Q10H [facility] Melatonin (Melatonin 3 Mg Tablet) 6 mg PO BEDTIME PRN PRN Reason: Insomnia Ondansetron HCl (Ondansetron Hcl 4 Mg/2 Ml Vial) 4 mg IVPUSH Q8H PRN PRN Reason: Nausea and Vomiting Sodium Chloride (0.9 % Sodium Chloride Flush 3 Ml Syringe) 3 ml IVFLUSH QSHIFT [facility] Last Admin: 09/14/23 07:40 Dose: Not Given Documented By: DOMINGUEZ Non-Admin Reason: See Note Labs 09/14/23 03:09 05/21/24 03:09 Labs: Laboratory Results - last 24 hr 09/13/23 09/13/23 09/14/23 15:33 20:18 03:09 MCV 90.3 89.2 MCH 29.2 29.7 MCHC 32.4 33.3 RDW 14.1 13.9 Plt Count 387 D 334 MPV 9.6 9.9 Immature Gran % (Auto) 0.4 Neut % (Auto) 62.5 Lymph % (Auto) 27.6 [place] % (Auto) 8.2 Eos % (Auto) 0.8 Baso % (Auto) 0.5 Lymph # (Auto) 2.0 [place] # (Auto) 0.6 Eos # (Auto) 0.1 Baso # (Auto) 0.0 Abs Immat Gran (auto) 0.03 Absolute Neuts (auto) 4.6 Absolute Nucleated RBC 0.000 0.000 Nucleated RBC % (auto) 0.0 0.0 PT 11.0 L 11.4 INR 0.9 0.9 aPTT Heparin Protocol 29.6 L 62.5 D Anion Gap 16 17 Estim Creat Clear Calc 39.0 36.4 Estimated GFR > 60 > 60 Random Glucose 101 94 Calcium 9.8 9.3 B-Natriuretic Peptide 284 H 09/14/23 09:12 MCV MCH MCHC RDW Plt Count MPV Immature Gran % (Auto) Neut % (Auto) Lymph % (Auto) [place] % (Auto) Eos % (Auto) Baso % (Auto) Lymph # (Auto) [place] # (Auto) Eos # (Auto) Baso # (Auto) Abs Immat Gran (auto) Absolute Neuts (auto) Absolute Nucleated RBC Nucleated RBC % (auto) PT INR aPTT Heparin Protocol 55.3 Anion Gap Estim Creat Clear Calc Estimated GFR Random Glucose Calcium B-Natriuretic Peptide Assessment and Plan (1) DVT, bilateral lower limbs: Status: Acute Plan This is a 83-year-old female with pertinent history of ALS, congestive heart failure unspecified EF, non-Hodgkin lymphoma in remission, history of CVA, COPD not on home oxygen, mostly bed-bound due to illness who presents to the emergency department for evaluation of lower extremity swelling and pain. Acute bilateral DVT Continue IV heparin drip. Consulted vascular surgery>Plan for bilateral lower extremity mechanical venous thrombectomy Transition to p.o. anticoagulants prior to discharge Heart failure with reduced ejection fraction No exacerbation Continue home diuresis History of CVA On Plavix not on statin ALS On riluzole and Radicava COPD No exacerbation during admission. Continue home inhaler DVT prophylaxis: Heparin Attending Dr. Neumann DNR/DNI. Continue hospital stay for IV heparin (as above), which is not possible in a lesser acute setting. Specialist consult pending Quality Stroke Does the patient have a stroke diagnosis?: No VTE Prior VTE?: No VTE Risk Level:: Medical - moderate - high VTE Device Contraindication: Treatment Not Indicated VTE Drug Contraindication: N/A - Med Ordered
[2023-09-14] MEDS: Furosemide 40 MG TABLET PO (15:05)
--- NOTE | 2023-09-14 19:15 | PC.NURSE ---
assumed care of patient. +pedal pulses bilat. no swelling/redness noted. son at bedside both educated on plan of care. Son concerned about d/c planning; educated case management will f/u. heparin infusing per mar. pt denies cp/sob/n/v/d. pt eating dinner independently nad. call torrez within reach.
[2023-09-14] MEDS: Albuterol Sulfate (0.083%) 2.5 MG/3 ML VIAL.NEB INHALE (19:55)
--- NOTE | 2023-09-14 20:17 | PC.NURSE ---
pharmacy aware for need for neudexta per 2100 meds.
[2023-09-14] MEDS: traMADoL HCL 50 MG TABLET PO (21:41)
--- NOTE | 2023-09-14 21:41 | PC.NURSE ---
pt placed in hospital bed.
[2023-09-14] MEDS: guaiFENesin LA 600 MG TAB.ER.12H 1200 MG PO (21:42)
[2023-09-15] VITALS (10 sets, daily range): BP systolic 120–139; BP diastolic 57–70; PULSE 61–85; RESP 16–20; TEMP 36–37.1; O2SAT 92–99; BMI 16.5
--- NOTE | 2023-09-15 00:22 | PC.NURSE ---
Dr. James aware pt pain did not improve with medication per mar.
--- NOTE | 2023-09-15 00:24 | MHC.EDTECH ---
THIS PCT ASSUMED CARE VOF PATIENT AT 2300 ,VITALS TAKEN ,PATIENT REFUSED TO BE CHANGE AND REPOSITION IN BED ,RN Reba ROUSSEAU AWARE .
[2023-09-15] MEDS: Albuterol Sulfate (0.083%) 2.5 MG/3 ML VIAL.NEB INHALE (08:25)
[2023-09-15] MEDS: Clopidogrel Bisulfate 75 MG TABLET PO (08:48)
[2023-09-15] MEDS: 0.9 % Sodium Chloride Flush 3 ML SYRINGE IVFLUSH ×3 (08:49→22:39)
[2023-09-15] MEDS: 0.9 % Sodium Chloride 1,000 ML 100 ML IVCONT (08:50)
--- NOTE | 2023-09-15 08:55 | HO.PM.IMPN ---
Subjective Subjective Date of Service: 09/15/23 Review of Systems Follow up DVT no pain or discomfort Physical Exam Vital Signs: Vital Signs: Last Vital Signs Temp 97.2 F 09/15/23 08:00 Pulse 69 09/15/23 08:30 Resp 16 09/15/23 08:30 BP 120/57 L 09/15/23 08:00 Pulse Ox 97 09/15/23 08:00 O2 Del Method Room Air 09/15/23 08:00 BMI result Body Mass Index 16.5 Appearing in no acute distress lung sounds are clear to auscultation heart regular rate rhythm, clear S1, S2 positive bowel sounds, abdomen is soft, nontender neuro patient is alert x3, no focal deficits Objective Data Active Medications Acetaminophen (Acetaminophen 325 Mg Tablet) 650 mg PO Q6H PRN PRN Reason: Pain, Mild (Pain Scale 1-3) Albuterol Sulfate (Albuterol Sulfate (0.083%) 2.5 Mg/3 Ml Vial.Neb) 2.5 mg INHALE BID [facility] Last Admin: 09/15/23 08:25 Dose: 2.5 mg Documented By: MEET Bisoprolol Fumarate (Bisoprolol Fumarate 5 Mg Tablet) 2.5 mg PO DAILY [facility] Last Admin: 09/15/23 08:53 Dose: 2.5 mg Documented By: BARTOLO Clopidogrel Bisulfate (Clopidogrel Bisulfate 75 Mg Tablet) 75 mg PO DAILY [facility] Last Admin: 09/15/23 08:48 Dose: 75 mg Documented By: BARTOLO Fluticasone/Umeclidinium/Vilanterol (Fluticasone/Umeclidinium/Vilanterol 200/62.5/25 Blst.W.Dev) 1 puff INHALE DAILY [facility] Furosemide (Furosemide 20 Mg Tablet) 20 mg PO Q48H [facility]; Protocol Furosemide (Furosemide 40 Mg Tablet) 40 mg PO Q48H [facility]; Protocol Last Admin: 09/14/23 15:05 Dose: 40 mg Documented By: DOMINGUEZ Guaifenesin (Guaifenesin La 600 Mg Tab.Er.12h) 1,200 mg PO BID [facility] Last Admin: 09/15/23 08:48 Dose: 1,200 mg Documented By: BARTOLO Heparin Sodium (Porcine) (Heparin Sodium,Porcine 5,000 Unit/Ml Vial) 1,500 unit 40 unit/kg (1500 unit) IVPUSH PROTOCOL BOLUS PRN; Protocol PRN Reason: 40 unit/kg - Heparin Protocol Heparin Sodium (Porcine) (Heparin Sodium,Porcine 5,000 Unit/Ml Vial) 3,000 unit 80 unit/kg (3000 unit) IVPUSH PROTOCOL BOLUS PRN; Protocol PRN Reason: 80 unit/kg - Heparin Protocol Heparin Sodium/Sodium Chloride (Heparin Sodium,Porcine/1/2ns) 25,000 unit in 250 mls @ 0 mls/hr IVCONT .Q0M [facility]; Protocol Last Titration: 09/14/23 09:40 Dose: 13.99 units/kg/hr, 5.19 mls/hr Documented By: DOMINGUEZ Co-signed By: MARIA DE JESUS Sodium Chloride (Ns) 1,000 mls @ 100 mls/hr IVCONT .Q10H [facility] Last Admin: 09/15/23 08:50 Dose: 100 mls/hr Documented By: BARTOLO Melatonin (Melatonin 3 Mg Tablet) 6 mg PO BEDTIME PRN PRN Reason: Insomnia Pt Own ( Dextromethorphan- Quinidine [Nuedexta] 20-10 Mg Capsule) 1 cap PO Q12H [facility] Last Admin: 09/15/23 08:48 Dose: 1 cap Documented By: BARTOLO Pt Own (Edaravone [ Radicava Ors] 105 Mg /5 Ml Suspension) 105 mg PO DAILY [facility] Stop: 09/16/23 09:01 Last Admin: 09/15/23 08:50 Dose: Not Given Documented By: BARTOLO Non-Admin Reason: patient states prescription is d/c Pt Own (Riluzole 50 (Mg Tablet)) 50 mg PO BID@0600,1630 [facility] Last Admin: 09/15/23 08:49 Dose: 50 mg Documented By: BARTOLO Ondansetron HCl (Ondansetron Hcl 4 Mg/2 Ml Vial) 4 mg IVPUSH Q8H PRN PRN Reason: Nausea and Vomiting Sodium Chloride (0.9 % Sodium Chloride Flush 3 Ml Syringe) 3 ml IVFLUSH QSHIFT [facility] Last Admin: 09/15/23 08:49 Dose: 3 ml Documented By: BARTOLO Labs 09/14/23 03:09 09/14/23 03:09 Labs: Laboratory Results - last 24 hr 09/14/23 09:12 aPTT Heparin Protocol 55.3 Assessment and Plan (1) DVT, bilateral lower limbs: Status: Acute Plan This is a 83-year-old female with pertinent history of ALS, congestive heart failure unspecified EF, non-Hodgkin lymphoma in remission, history of CVA, COPD not on home oxygen, mostly bed-bound due to illness who presents to the emergency department for evaluation of lower extremity swelling and pain. Acute bilateral DVT Continue IV heparin drip. Consulted vascular surgery>Plan for bilateral lower extremity mechanical venous thrombectomy today Transition to p.o. anticoagulants prior to discharge Heart failure with reduced ejection fraction No exacerbation Continue home diuresis History of CVA On Plavix not on statin ALS On riluzole and Radicava COPD No exacerbation during admission. Continue home inhaler DVT prophylaxis: Heparin Attending Dr. Neumann DNR/DNI. Continue hospital stay for IV heparin (as above), which is not possible in a lesser acute setting. Plan for vascular procedure today Quality Stroke Does the patient have a stroke diagnosis?: No VTE Prior VTE?: No VTE Risk Level:: Medical - moderate - high VTE Device Contraindication: Treatment Not Indicated VTE Drug Contraindication: N/A - Med Ordered
--- NOTE | 2023-09-15 10:34 | MHC.CM.PN ---
EMR REVIEWED, PT REMAINS ON HEPARIN DRIP, PER HOSPITALIST ANTIC PT WILL BE MEDICALLY CLEARED FOR DC TOMORROW 09/15, PLAN FOR HOME W/RESUMP OF [facility] AND PRIVATE 24HR CARE AND BLS TRAANSPORT, CM WILL CONT TO FOLLOW DC NEEDS.
--- NOTE | 2023-09-15 13:41 | W.PM.OPN ---
Operative Note Operative Note Date of Service: 09/15/23 Narrative: Operative note by [facility] Preoperative diagnosis: Deep venous thrombosis of bilateral lower extremity Postoperative diagnosis: Same Procedure: 1 Ultrasound-guided bilateral popliteal vein access 2. Inferior vena cavogram 3. Percutaneous transluminal venous mechanical thrombectomy (37307) 4. Bilateral venous plasty of femoral vein 4. Radiologic super visual and interpretation Surgeon:Michel Galvez M.D. Medical Terminologist: None Anesthesia: Local with moderate conscious sedation. Total intra service moderate sedation time was 86 minutes. I monitored the patient's level of consciousness and physiologic status continuously throughout the procedure Specimen: None Drains: None Estimated blood loss: 50 mL Implant: None Indications: Very pleasant 83-year-old female who presented to the hospital and upon workup was found to have bilateral lower extremity DVTs. The patient has signed the informed consent after reviewing risks, complications, benefits, and alternatives previously discussed with the patient. The patient was given the opportunity to ask any additional questions or voice any concerns. All questions were answered to the patient's satisfaction. Procedure in detail: Patient was brought to the Angiography suite prior to which a time-out was called for patient identification and site verification. The patient was placed in a prone position. Bilateral popliteal fossas were prepped out. We first access the left popliteal vein under ultrasound guidance. We then placed a percutaneous 4 [place] sheath. We were then able to traverse the clot with a Glidewire Advantage 035 wire. We brought in a trail Blazer catheter to confirmed true lumen. At this time 4000 units of heparin was administered. After 5 minutes of circulation time we then dilated up the tract. The clot triever over the wire system was then brought into position. We placed the clot triever sheath and exposed the self expanding Nitinol mesh funnel to facilitate clot removal for large-bore side port rapid aspiration. Once this was accomplished we then advanced over the wire the clot triever catheter with the coring element and braided collection bag. This was brought into the inferior vena cava up past this occlusion and extracted back. We did 2 sequential passes. The main angle of the catheter was placed at the 12:00 o'clock, 03:00 o'clock, 06:00 o'clock, and 09:00 o'clock positions. After each subsequent pass the clot was removed and it was flushed clear and we then brought it in again through this area. There was still residual stenosis and this was plasty with an 8 x 60 balloon. Multiple sequential insufflations of this was undertaken. Completion venogram demonstrated an excellent result. We subsequently removed catheter wire in sheath. Direct pressure was held for 10 minutes. In a similar fashion we turned our attention to the right popliteal vein. We placed a percutaneous 5 [place] sheath. We were then able to advance a Glidewire Advantage 035 wire. We brought a trail Blazer catheter to confirmed true lumen. We placed the clot tree bur sheath and exposed the self expanding Nitinol mesh funnel to facilitate clot removal for large-bore side port rapid aspiration. Once this was accomplished we then advanced over the wire and the position was placed at 12,3,6 o'clock positions. Subsequently the clot was removed and flushed. There was still residual stenosis and in a similar fashion we had to plasty this with an 8 x 60 balloon. Completion venogram demonstrated excellent result. Sterile dressing was applied. Patient was brought to the recovery room with stable vitals. Interpretation of films: 1. Ultrasound demonstrates appropriate popliteal vein puncture bilateral. 2. Vena cavogram demonstrated thrombus in the distal vena cava along the end attire iliofemoral system down into the popliteal vein. 3. Completion vena cavogram demonstrated resolution of clot of bilateral femoral veins. Conclusion: 1. Successful mechanical clot removal of bilateral femoral veins 2. Anticoagulation status: Resume heparin drip in for hours. Tomorrow may start oral anticoagulation. This note is constructed using voice recognition software. While every effort has been made to ensure accuracy, storage facility rental clerk errors may have been included. Thank you for allowing me to participate in the care of your patient. Yours sincerely, Michel Galvez MD, FACS, R.P.V.I.
[2023-09-15 14:27] LABS: Hematocrit 31.1 % (37.0-47.0); Hemoglobin 10.1 g/dl (12.0-16.0); Mean Corpuscular HGB Conc 32.5 g/dl (31.0-35.0); Mean Corpuscular Hemoglobin 29.3 pg (27.0-33.0); Mean Corpuscular Volume 90.1 fL (80.0-98.0); Mean Platelet Volume 9.8 fL (9.4-12.3); Platelet Count 343 X10*3/uL (160-400); Red Blood Count 3.45 X10*6/uL (4.20-5.50); White Blood Count 8.9 X10*3/uL (4.8-10.8)
[2023-09-15 14:40] LABS: Anion Gap 14 (12-20); Blood Urea Nitrogen 10 mg/dL (9-16); Calcium 9.2 mg/dL (8.4-10.2); Carbon Dioxide 29 mmol/L (22-29); Chloride 100 mmol/L (96-108); Estimated Glomerular Filt Rate > 60; Glucose Random 97 mg/dL (60-115); Potassium 3.3 mmol/L (3.3-5.1); Sodium 140 mmol/L (135-145)
[2023-09-15 15:10] LABS: PTT Heparin Drip 121.9 SEC (53-77.9)
--- NOTE | 2023-09-15 16:09 | MHC.CLN ---
PT IS MODERATELY MALNOURISHED PT WITH MILDLY DEPLETED SUBCUTANEOUS FAT AND MUSCLE MASS WITH BMI 16.5 AND 39% SIGNIFICANT WT LOSS X 1.5 YEARS PO INTAKE 50% X1 MEAL REGULAR DIET RECOMMEND ADDING ENSURE BID TO INCREASE KCALS SUPP PROVIDES 700KCALS, 40G PROTEIN WITH 100% ACCEPTANCE MONITOR PO INTAKE AND ENCOURAGE SUPPLEMENTS SEE ALSO FULL CLINICAL NUTRITION ASSESSMENT
[2023-09-15] MEDS: Furosemide 20 MG TABLET PO (17:52)
--- NOTE | 2023-09-15 18:14 | P.CDIM_ITS ---
PROVIDER RESPONSE TEXT: To clarify, the appropriate diagnosis supported by the clinical indicators: Underweight QUERY TEXT: PHYSICIAN'S DOCUMENTATION REQUEST Date of Query: 09/15/2023 10:22 AM EDT Patient Name: Chyna Hernandez Admit Date: 09/13/2023 Dear Hue Vitale, A review of the medical record indicates additional documentation may be needed. Please review below and update the documentation accordingly. Clinical Indicators: Height: 4ft 11in Weight: 37.1kg BMI: 16.5 Other Clinical Notes Supporting Significance of the BMI: Nursing notes Height and Weight: Underweight If possible, please provide an associated diagnosis related to the abnormal BMI, such as: Underweight Weight loss Cachexia Anorexia Other (explain) Clinically unable to determine (explain) Thank you, Antoinette Bateman, CCS, CDIS Use of terms such as suspected, likely, concern for, or probable (associated with a specific diagnosi s that is being evaluated, monitored, or treated as if it exists) are acceptable and can be coded in the inpatient se tting, when documented at the time of discharge. Please use your independent medical judgment in providing your response. THIS QUERY IS PART OF THE PERMANENT MEDICAL RECORD
[2023-09-15] MEDS: traMADoL HCL 50 MG TABLET PO (19:38)
[2023-09-15] MEDS: Heparin Sodium,Porcine/1/2NS 25,000 UNIT/250 ML IV.SOLN 5.19 UNIT IVCONT (19:38)
[2023-09-15] MEDS: guaiFENesin LA 600 MG TAB.ER.12H 1200 MG PO (22:34)
[2023-09-15] MEDS: Acetaminophen 325 MG TABLET 650 MG PO (22:55)
[2023-09-15] MEDS: Melatonin 3 MG TABLET 6 MG PO (22:55)
[2023-09-16] VITALS (9 sets, daily range): BP systolic 106–125; BP diastolic 53–61; PULSE 68–83; RESP 16–20; TEMP 36–37.3; O2SAT 93–96
[2023-09-16 00:43] LABS: PTT Heparin Drip 44.6 SEC (53-77.9)
[2023-09-16] MEDS: Heparin Sodium,Porcine 5,000 UNIT/ML VIAL 1500 UNIT IVPUSH (01:43)
[2023-09-16] MEDS: 0.9 % Sodium Chloride 1,000 ML 100 ML IVCONT (04:21)
[2023-09-16 08:23] LABS: PTT Heparin Drip 74.6 SEC (53-77.9)
[2023-09-16 08:30] LABS: Anion Gap 12 (12-20); Blood Urea Nitrogen 8 mg/dL (9-16); Calcium 8.8 mg/dL (8.4-10.2); Carbon Dioxide 25 mmol/L (22-29); Chloride 106 mmol/L (96-108); Creatinine Clr Calc Pharmacy 42.3; Estimated Glomerular Filt Rate > 60; Glucose Random 93 mg/dL (60-115); Potassium 3.3 mmol/L (3.3-5.1); Sodium 140 mmol/L (135-145)
[2023-09-16] MEDS: Albuterol Sulfate (0.083%) 2.5 MG/3 ML VIAL.NEB INHALE ×2 (09:14→19:40)
[2023-09-16] MEDS: traMADoL HCL 50 MG TABLET PO (09:15)
[2023-09-16] MEDS: Clopidogrel Bisulfate 75 MG TABLET PO (09:15)
[2023-09-16] MEDS: Fluticasone/Umeclidinium/Vilanterol 200/62.5/25 BLST.W.DEV 1 PUFF INHALE (09:17)
[2023-09-16 09:29] LABS: Hematocrit 30.5 % (37.0-47.0); Hemoglobin 9.8 g/dl (12.0-16.0); Mean Corpuscular HGB Conc 32.1 g/dl (31.0-35.0); Mean Corpuscular Hemoglobin 29.4 pg (27.0-33.0); Mean Corpuscular Volume 91.6 fL (80.0-98.0); Mean Platelet Volume 9.8 fL (9.4-12.3); Platelet Count 294 X10*3/uL (160-400); Red Blood Count 3.33 X10*6/uL (4.20-5.50); White Blood Count 9.2 X10*3/uL (4.8-10.8)
--- NOTE | 2023-09-16 11:14 | MHC.CM.PN ---
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
[2023-09-16] MEDS: Apixaban 5 MG TABLET PO ×2 (12:06→21:23)
--- NOTE | 2023-09-16 13:20 | HO.PM.IMPN ---
Subjective Subjective Date of Service: 09/16/23 Interval History: Seen and examined this morning Follow-up for bilateral DVT status post thrombectomy No overnight events No significant pain in legs Review of Systems Review of Systems: Yes all other systems are reviewed and are negative Constitutional Constitutional: Denies fever(s) Cardiovascular Cardiovascular: Denies chest pain and Denies dyspnea Respiratory Respiratory: Denies dyspnea Gastrointestinal Gastrointestinal: Denies abdominal pain Physical Exam Vital Signs: Vital Signs: Last Vital Signs Temp 97.8 F 09/16/23 11:18 Pulse 78 09/16/23 11:18 Resp 18 09/16/23 11:18 BP 108/54 L 09/16/23 11:18 Pulse Ox 95 09/16/23 11:18 O2 Del Method Room Air 09/16/23 11:18 BMI result Body Mass Index 16.5 Const: General: cooperative, comfortable, no acute distress, alert and awake Nutritional Appearance: thin Resp: Effort & Inspection: normal respiratory effort, able to speak in complete sentences and no respiratory distress Cardio: Rate: regular rate GI: Inspection: No distended Palpation (GI): Soft to palpation Extrem: General: Yes no pedal edema Objective Data Active Medications Acetaminophen (Acetaminophen 325 Mg Tablet) 650 mg PO Q6H PRN PRN Reason: Pain, Mild (Pain Scale 1-3) Last Admin: 09/15/23 22:55 Dose: 650 mg Documented By: OUSMANE Albuterol Sulfate (Albuterol Sulfate (0.083%) 2.5 Mg/3 Ml Vial.Neb) 2.5 mg INHALE BID [facility] Last Admin: 09/16/23 09:14 Dose: 2.5 mg Documented By: ASHWIN Apixaban (Apixaban 5 Mg Tablet) 5 mg PO BID [facility] Last Admin: 09/16/23 12:06 Dose: 5 mg Documented By: BARTOLO Bisoprolol Fumarate (Bisoprolol Fumarate 5 Mg Tablet) 2.5 mg PO DAILY [facility] Last Admin: 09/16/23 09:17 Dose: Not Given Documented By: BARTOLO Non-Admin Reason: Patient Refused Clopidogrel Bisulfate (Clopidogrel Bisulfate 75 Mg Tablet) 75 mg PO DAILY [facility] Last Admin: 09/16/23 09:15 Dose: 75 mg Documented By: BARTOLO Fluticasone/Umeclidinium/Vilanterol (Fluticasone/Umeclidinium/Vilanterol 200/62.5/25 Blst.W.Dev) 1 puff INHALE DAILY [facility] Last Admin: 09/16/23 09:17 Dose: 1 puff Documented By: ASHWIN Furosemide (Furosemide 20 Mg Tablet) 20 mg PO Q48H [facility]; Protocol Last Admin: 09/15/23 17:52 Dose: 20 mg Documented By: BARTOLO Furosemide (Furosemide 40 Mg Tablet) 40 mg PO Q48H [facility]; Protocol Last Admin: 09/14/23 15:05 Dose: 40 mg Documented By: DOMINGUEZ Guaifenesin (Guaifenesin La 600 Mg Tab.Er.12h) 1,200 mg PO BID [facility] Last Admin: 09/16/23 09:20 Dose: Not Given Documented By: BARTOLO Non-Admin Reason: cannot be crusehd Melatonin (Melatonin 3 Mg Tablet) 6 mg PO BEDTIME PRN PRN Reason: Insomnia Last Admin: 09/15/23 22:55 Dose: 6 mg Documented By: OUSMANE Pt Own ( Dextromethorphan- Quinidine [Nuedexta] 20-10 Mg Capsule) 1 cap PO Q12H [facility] Last Admin: 09/16/23 09:15 Dose: 1 cap Documented By: BARTOLO García Own (Riluzole 50 (Mg Tablet)) 50 mg PO BID@0600,1630 [facility] Last Admin: 09/16/23 06:29 Dose: 50 mg Documented By: OUSMANE Ondansetron HCl (Ondansetron Hcl 4 Mg/2 Ml Vial) 4 mg IVPUSH Q8H PRN PRN Reason: Nausea and Vomiting Sodium Chloride (0.9 % Sodium Chloride Flush 3 Ml Syringe) 3 ml IVFLUSH QSHIFT [facility] Last Admin: 09/16/23 09:17 Dose: Not Given Documented By: BARTOLO Non-Admin Reason: IV Running Labs 09/16/23 09:23 09/16/23 07:58 Labs: Laboratory Results - last 24 hr 09/15/23 09/16/23 09/16/23 14:19 00:24 07:58 MCV 90.1 MCH 29.3 MCHC 32.5 RDW 14.0 Plt Count 343 MPV 9.8 Absolute Nucleated RBC 0.000 Nucleated RBC % (auto) 0.0 aPTT Heparin Protocol 121.9 H* D 44.6 L D 74.6 D Anion Gap 14 12 Estim Creat Clear Calc 38.0 42.3 Estimated GFR > 60 > 60 Random Glucose 97 93 Calcium 9.2 8.8 09/16/23 09:23 MCV 91.6 MCH 29.4 MCHC 32.1 RDW 14.0 Plt Count 294 MPV 9.8 Absolute Nucleated RBC 0.000 Nucleated RBC % (auto) 0.0 aPTT Heparin Protocol Anion Gap Estim Creat Clear Calc Estimated GFR Random Glucose Calcium Assessment and Plan (1) DVT, bilateral lower limbs: Status: Acute Plan This is a 83-year-old female with pertinent history of ALS, congestive heart failure unspecified EF, non-Hodgkin lymphoma in remission, history of CVA, COPD not on home oxygen, mostly bed-bound due to illness who presents to the emergency department for evaluation of lower extremity swelling and pain. Acute bilateral DVT Initially treated with IV heparin drip Consulted vascular surgery>s/p bilateral lower extremity mechanical venous thrombectomy 09/14 Transitioned to po eliquis, vascular recommended against loading dose Heart failure with reduced ejection fraction No exacerbation Continue home diuresis History of CVA On Plavix - will stop now that she is on eliquis not on statin ALS On riluzole and Radicava COPD No exacerbation during admission. Continue home inhaler DVT prophylaxis: Jacqueline Attending Dr. Neumann DNR/DNI. dispo - previously had / care but unable to return home with current management as she has no longer a 1 assist with ambulation, plan for long-term care Continue hospital stay for safe disposition/anticoagulation Quality Stroke Does the patient have a stroke diagnosis?: No VTE Prior VTE?: No VTE Risk Level:: Medical - moderate - high VTE Device Contraindication: Treatment Not Indicated VTE Drug Contraindication: N/A - Med Ordered
[2023-09-16] MEDS: Furosemide 40 MG TABLET PO (13:28)
[2023-09-16 14:03] LABS: PTT Heparin Drip 31.4 SEC (53-77.9)
--- NOTE | 2023-09-16 14:05 | HO.VASCPN ---
Subjective Subjective Date of Service: 09/16/23 Patient reports: no new complaints and feels better Interval history: Very pleasant 83-year-old female presents for follow-up status post bilateral venous thrombectomy. She reports that both her legs feel significantly better postprocedure. Swelling and discomfort have decreased. She is being transitioned over to Eliquis. Reports no significant postoperative issues. Physical Exam Vital Signs: Vital Signs: Last Vital Signs Temp 97.8 F 09/16/23 11:18 Pulse 78 09/16/23 11:18 Resp 18 09/16/23 11:18 BP 123/61 09/16/23 13:28 Pulse Ox 95 09/16/23 11:18 O2 Del Method Room Air 09/16/23 11:18 BMI result Body Mass Index 16.5 Const: General: cooperative, healthy appearing and no acute distress Orientation/consciousness: oriented to person, oriented to place and oriented to time HEENT: Head: Yes normal to inspection Neck: Carotids: no bruits Chest: Chest palpation & inspection: normal inspection of the chest Resp: Effort & Inspection: normal respiratory effort and able to speak in complete sentences Auscultation: clear to auscultation bilaterally Cardio: Rate: regular rate Heart sounds: S1 normal heart sound present and S2 normal heart sound present GI: Inspection: Yes normal to inspection Skin: General skin exam: no rashes or lesions noted Wounds: no wounds Neuro: General: oriented to person, oriented to place, oriented to time and CN's II-XI intact bilaterally Extrem: Other: Lower extremity +1 edema General: Yes normal to inspection and Yes full ROM Psych: Appearance: grossly normal and well kempt Speech and movement: Normal speech and movement present Affect: normal affect Progress Note: A&P Assessment and plan (1) DVT, bilateral lower limbs: Status: Acute Assessment and Plan: In short patient is status post bilateral lower extremity mechanical venous thrombectomy. Appears to be doing relatively well postoperatively. She is being transitioned to Eliquis. She is stable from my perspective for discharge. She will follow up with us after discharge in approximately 2 weeks time. Thank you for allowing us to assist in her care. Time Spent With Patient Time: Total time managing care of this patient today ____ minutes. Procedures Date of Service Date of Service: 09/16/23 Quality Stroke Does the patient have a stroke diagnosis?: No VTE Prior VTE?: No VTE Risk Level:: Medical - moderate - high VTE Device Contraindication: Treatment Not Indicated VTE Drug Contraindication: N/A - Med Ordered
[2023-09-16] MEDS: 0.9 % Sodium Chloride Flush 3 ML SYRINGE IVFLUSH ×2 (16:28→21:24)
[2023-09-17] VITALS (9 sets, daily range): BP systolic 110–125; BP diastolic 58–68; PULSE 66–92; RESP 16–20; TEMP 36.3–37.5; O2SAT 91–100
--- NOTE | 2023-09-17 | ECG_ITS ---
Test Reason : QTC CHECK Blood Pressure : / mmHG Vent. Rate : 091 BPM Atrial Rate : 091 BPM P-R Int : 156 ms QRS Dur : 092 ms QT Int : 366 ms P-R-T Axes : 038 -29 085 degrees QTc Int : 450 ms Normal sinus rhythm Septal infarct (cited on or before 16-DEC-2020) Abnormal ECG When compared with ECG of 13-SEP-2023 20:36, Questionable change in initial forces of Anterior leads Referred By: Luz Funk Electronically Signed By:Yimi Guererro
--- NOTE | 2023-09-17 00:36 | PC.NURSE ---
approximately around 2345 pt experienced 8 beat run of vtach and a 3 beat run fewer than ten minutes later. returned to R per continuous telemetry. MD notified. orders for stat BMP and magenisum placed. vitals stable. pt denies complaints. calm on observtation. call torrez in reach. plan of care ongoing
[2023-09-17 00:59] LABS: Anion Gap 12 (12-20); Blood Urea Nitrogen 12 mg/dL (9-16); Carbon Dioxide 30 mmol/L (22-29); Chloride 103 mmol/L (96-108); Creatinine Clr Calc Pharmacy 37.4; Estimated Glomerular Filt Rate > 60; Glucose Random 108 mg/dL (60-115); Magnesium 1.5 mg/dL (1.6-2.6); Potassium 3.2 mmol/L (3.3-5.1); Sodium 142 mmol/L (135-145)
[2023-09-17] MEDS: Potassium Chloride/H20 10 MEQ/100 ML PIGGYBACK 100 MEQ IV ×4 (01:40→05:59)
[2023-09-17] MEDS: Magnesium Sulfate/H2O 2 GM/50 ML PIGGYBACK IV (01:40)
--- NOTE | 2023-09-17 07:00 | CA_ITS ---
Transthoracic Echocardiogram Patient (Last, First, Middle): Parent, Zaira Clemente Gender: Female Date of : 1940 Age: 83 Procedure Date: 09/17/2023 Procedure Type: Transthoracic Echocardiogram Location: S3E Height: 149.86 cm Weight: 36.74 kg BSA: 1.26 m2 Heart Rate: 88 bpm Textile Science Technician: IRENE Referring MD: Luz QUEEN Symptoms: NSVT eval EF Study Quality: Fair ECG Rhythm: Sinus Conclusions: - Normal left ventricular size and systolic function. There is mildly increased left ventricular wall thickness. The visually estimated ejection fraction is between 55-60%. - Elevated filling pressures. - The basal inferior segment is akinetic. - The left atrium is severely dilated. Findings Left Ventricle Normal left ventricular size and systolic function. There is mildly increased left ventricular wall thickness. The visually estimated ejection fraction is between 55-60%. Abnormal diastolic function is noted. Spectral Doppler is indicative of an impaired relaxation filling pattern. Elevated filling pressures. Wall Motion Rest Echo Findings The basal inferior segment is akinetic. Right Ventricle Normal right ventricular cavity size and systolic function. Atria The left atrium is severely dilated. Aortic Valve Normal aortic valve structure and function. There is no aortic valve stenosis. There is no aortic valve regurgitation. Mitral Valve Normal mitral valve structure and function. There is trace mitral valve regurgitation. There is no mitral valve stenosis. Pulmonic Valve The pulmonic valve is normal. There is trace pulmonic valve regurgitation. Tricuspid Valve Normal tricuspid valve structure. There is mild tricuspid valve regurgitation. Normal right atrial pressure. There is no evidence of pulmonary hypertension. Great Vessels All visible segments of the aorta are normal in size. Venous The inferior vena cava is normal in size and collapses greater than 50% with inspiration. Pericardium/Pleural There is no evidence of pericardial effusion. Prior Study Comparison Changes noted compared to prior study dated: 12/17/2020. EF 55 to 60% now. Measurements 2D Linear Measurements IVSd: 1.03 0.6-0.9/0.6-1.0 cm LVIDd: 3.44 3.9-5.3/4.2-5.9 cm LVIDd Index: 2.73 2.4-3.2/2.2-3.1 cm/m2 LVIDs: 2.34 2.0-3.6 cm LVPWd: 1.01 0.7-1.1 cm LA Diam: 3.70 2.7-3.8/3.0-4.0 cm LAIDs Index: 2.94 1.5-2.3 cm/m2 LV Mass: 128.81 67-162/88-224 g LV Mass Index: 102.23 43-95/49-115 g/m2 LVOT Diam: 2.00 3.0+(-)1.3 cm 2D Systolic Function EF 4C: 47.70 >55% EF 2C: 53.10 >55% EF BiP: 50.30 >55% Mitral Valve MV Pk E: 0.86 MV PK A: 1.27 MV Decel Time: 143.00 E/A: 0.70 E'Lateral: 7.40 E'Medial: 4.57 E/E' Med: 18.80 E/E' Lat: 11.60 PHT: 42.00 MVA PHT: 5.24 Decel [place]: 6.01 Aortic Valve AoV Pk Dale: 1.58 AoV Mn Dale: 1.04 AoV VTI: 0.31 AoV Pk Grad: 10.00 Aov Mn Grad: 5.00 TEREZA Cont.VTI: 2.00 LVOT LVOT Pk Dale: 0.86 LVOT Mn Dale: 0.59 LVOT VTI: 0.20 LVOT Pk Grad: 3.00 LVOT Mn Grad: 2.00 LVOT Diam: 2.00 LVOT Area: 3.14 Diastolic Function MV Pk E: 0.86 MV Pk A: 1.27 E/A: 0.70 E'Medial: 4.57 E/E' Med: 18.80 E' Laterial: 7.40 E/E' Lat: 11.60 Right Ventricle TAPSE (mm): 26.10 TVS' Dale: 14.90 Tricuspid Valve TR Pk Dale: 3.06 TR Pk Grad: 37.00 RVSP: 40.00 Great Vessels Aorta Sinus of Valsalva: 2.90 2.0-3.5 cm Ao Asc: 3.30 2.1-3.4 cm Pulmonary Valve PV Pk Dale: 0.92 Peak PV Grad: 3.00 Updated in Other Vendor System with Status of Final Yimi Guerrero MD electronically signed on 09/17/2023 11:29:31 PM with status of Final
[2023-09-17 07:35] LABS: Anion Gap 12 (12-20); Blood Urea Nitrogen 10 mg/dL (9-16); Calcium 8.8 mg/dL (8.4-10.2); Carbon Dioxide 28 mmol/L (22-29); Chloride 103 mmol/L (96-108); Creatinine Clr Calc Pharmacy 41.7; Estimated Glomerular Filt Rate > 60; Glucose Random 94 mg/dL (60-115); Magnesium 2.3 mg/dL (1.6-2.6); Sodium 139 mmol/L (135-145)
[2023-09-17] MEDS: Fluticasone/Umeclidinium/Vilanterol 200/62.5/25 BLST.W.DEV 1 PUFF INHALE (07:39)
[2023-09-17] MEDS: Albuterol Sulfate (0.083%) 2.5 MG/3 ML VIAL.NEB INHALE ×2 (07:39→19:04)
[2023-09-17 07:52] LABS: Potassium 4.1 mmol/L (3.3-5.1)
[2023-09-17] MEDS: Apixaban 5 MG TABLET PO ×2 (07:58→20:04)
[2023-09-17] MEDS: polyethylene glycoL 3350 17 GM POWD.PACK PO (08:09)
[2023-09-17] MEDS: traMADoL HCL 50 MG TABLET PO (08:09)
--- NOTE | 2023-09-17 09:01 | MHC.CM.PN ---
Addendum entered by Ruthie Vargas RN 09/17/23 11:47: PER HOSPITALIST WILL MONITOR PT OVERNIGHT, CARDIO AND ECCHO PENDING, CM WILL CONT TO FOLLOW, [facility] UPDATED VIA Bubbl. Original Note: EMR REVIEWED, ANTIC PT WILL BE MEDICALLY CLEARED TO DC TO [facility] UNDER STR W/TRANSITION TO LTC ONCE MEDICALLY CLEARED, PLAN WAS INITIALLY TODAY HOWEVER PT W/VTACH OVERNIGHT AND MAY NOT BE ABLE TO DC TODAY PREVIOUSLY PLANNED, CM WILL CONT TO FOLLOW.
--- NOTE | 2023-09-17 12:08 | P.PNIM_ITS ---
Subjective Subjective Date of Service: 09/17/23 Interval History: Seen and examined this morning Follow-up for bilateral lower extremity DVT Overnight had 2 episodes of NSVT Denies chest pain, shortness for breath Review of Systems Review of Systems: Yes all other systems are reviewed and are negative Constitutional Constitutional: Denies chills and Denies fever(s) Physical Exam 2 Vital Signs: Vital Signs: Last Vital Signs Temp 97.8 F 09/17/23 11:21 Pulse 92 09/17/23 11:21 Resp 18 09/17/23 11:21 BP 115/63 09/17/23 11:21 Pulse Ox 95 09/17/23 11:21 O2 Del Method Room Air 09/17/23 11:21 BMI result Body Mass Index 16.5 Const: General: cooperative, comfortable, no acute distress, alert and awake Nutritional Appearance: thin Resp: Effort & Inspection: normal respiratory effort, able to speak in complete sentences and no respiratory distress Cardio: Rate: regular rate GI: Inspection: No distended Palpation (GI): Soft to palpation Extrem: General: Yes no pedal edema Objective Data Active Medications Acetaminophen (Acetaminophen 325 Mg Tablet) 650 mg PO Q6H PRN PRN Reason: Pain, Mild (Pain Scale 1-3) Last Admin: 09/15/23 22:55 Dose: 650 mg Documented By: OUSMANE Albuterol Sulfate (Albuterol Sulfate (0.083%) 2.5 Mg/3 Ml Vial.Neb) 2.5 mg INHALE BID [facility] Last Admin: 09/17/23 07:39 Dose: 2.5 mg Documented By: RACHAEL Apixaban (Apixaban 5 Mg Tablet) 5 mg PO BID [facility] Last Admin: 09/17/23 07:58 Dose: 5 mg Documented By: BARTOLO Bisoprolol Fumarate (Bisoprolol Fumarate 5 Mg Tablet) 2.5 mg PO DAILY [facility] Last Admin: 09/17/23 07:54 Dose: Not Given Documented By: BARTOLO Non-Admin Reason: Patient Refused Docusate Sodium (Docusate Sodium 100 Mg Capsule) 100 mg PO BEDTIME [facility] Fluticasone/Umeclidinium/Vilanterol (Fluticasone/Umeclidinium/Vilanterol 200/62.5/25 Blst.W.Dev) 1 puff INHALE DAILY [facility] Last Admin: 09/17/23 07:39 Dose: 1 puff Documented By: RACHAEL Furosemide (Furosemide 20 Mg Tablet) 20 mg PO Q48H [facility]; Protocol Last Admin: 09/15/23 17:52 Dose: 20 mg Documented By: BARTOLO Furosemide (Furosemide 40 Mg Tablet) 40 mg PO Q48H [facility]; Protocol Last Admin: 09/16/23 13:28 Dose: 40 mg Documented By: BARTOLO Guaifenesin (Guaifenesin La 600 Mg Tab.Er.12h) 1,200 mg PO BID [facility] Last Admin: 09/17/23 07:54 Dose: Not Given Documented By: BARTOLO Non-Admin Reason: Cant be crushed Melatonin (Melatonin 3 Mg Tablet) 6 mg PO BEDTIME PRN PRN Reason: Insomnia Last Admin: 09/15/23 22:55 Dose: 6 mg Documented By: OUSMANE Pt Own ( Dextromethorphan- Quinidine [Nuedexta] 20-10 Mg Capsule) 1 cap PO Q12H [facility] Last Admin: 09/17/23 07:58 Dose: 1 cap Documented By: BARTOLO Pt Own (Riluzole 50 (Mg Tablet)) 50 mg PO BID@0600,1630 [facility] Last Admin: 09/17/23 05:58 Dose: 50 mg Documented By: PETRONA Ondansetron HCl (Ondansetron Hcl 4 Mg/2 Ml Vial) 4 mg IVPUSH Q8H PRN PRN Reason: Nausea and Vomiting Polyethylene Glycol (Polyethylene Glycol 3350 17 Gm Powd.Pack) 17 gm PO DAILY [facility] Last Admin: 09/17/23 08:09 Dose: 17 gm Documented By: BARTOLO Sodium Chloride (0.9 % Sodium Chloride Flush 3 Ml Syringe) 3 ml IVFLUSH QSHIFT [facility] Last Admin: 09/17/23 07:59 Dose: Not Given Documented By: BARTOLO Non-Daniele Reason: IV Running Tramadol HCl (Tramadol Hcl 50 Mg Tablet) 50 mg PO Q12H PRN PRN Reason: Pain, Moderate(Pain Scale 4-6) Last Admin: 09/17/23 08:09 Dose: 50 mg Documented By: BARTOLO Labs 09/16/23 09:23 09/17/23 06:36 Labs: Laboratory Results - last 24 hr 09/16/23 09/17/23 09/17/23 13:50 00:40 06:36 Hold Purple Top SEE NOTE aPTT Heparin Protocol 31.4 L D Anion Gap 12 12 Estim Creat Clear Calc 37.4 41.7 Estimated GFR > 60 > 60 Random Glucose 108 94 Calcium 9.0 8.8 Magnesium 1.5 L 2.3 Assessment and Plan (1) NSVT (nonsustained ventricular tachycardia): Status: Acute (2) DVT, bilateral lower limbs: Status: Acute Plan This is a 83-year-old female with pertinent history of ALS, congestive heart failure unspecified EF, non-Hodgkin lymphoma in remission, history of CVA, COPD not on home oxygen, mostly bed-bound due to illness who presents to the emergency department for evaluation of lower extremity swelling and pain. NSVT Previous echocardiogram from 2020 with EF of 40-45%-will obtain updated echocardiogram to re-assess EF Magnesium and potassium low overnight, replaced and improved this morning Continue tele monitoring Recently started on new medication Nuedexta which can cause prolonged QTC, EKG pending Hypokalemia, hypomagnesemia Replaced and improved Acute bilateral DVT Initially treated with IV heparin drip Consulted vascular surgery>s/p bilateral lower extremity mechanical venous thrombectomy 09/14 Transitioned to po eliquis, vascular recommended against loading dose Outpatient follow-up with vascular surgery in 2 weeks Heart failure with reduced ejection fraction No exacerbation Continue home lasix History of CVA On Plavix - will stop now that she has been started on eliquis not on statin ALS On riluzole and Nuedexta COPD No exacerbation during admission. Continue home inhaler DVT prophylaxis: Jacqueline Attending Dr. Neumann DNR/DNI. dispo - previously had 16/11 care but unable to return home with current management as she has no longer a 1 assist with ambulation, plan for long-term care, has bed at [facility] hospital stay for safe disposition/anticoagulation/ tele monitoring due to NSVT Quality Stroke Does the patient have a stroke diagnosis?: No VTE Prior VTE?: No VTE Risk Level:: Medical - moderate - high VTE Device Contraindication: Treatment Not Indicated VTE Drug Contraindication: N/A - Med Ordered
--- NOTE | 2023-09-17 12:17 | P.CDIM_ITS ---
PROVIDER RESPONSE TEXT: To clarify, the appropriate diagnosis supported by the clinical indicators: Malnutrition: moderate QUERY TEXT: PHYSICIAN'S DOCUMENTATION REQUEST Date of Query: 09/17/2023 07:55 AM EDT Patient Name: Chyna Hernandez Admit Date: 09/13/2023 Dear Luz Funk, A review of the medical record indicates additional documentation may be needed. Please review below and update the documentation accordingly. Clinical Indicators: Clinical nutrition note dated 09/14 - Non-severe malnutrition in the context of chronic illness. Patient is moderately malnourished with mildly depleted subcutaneous fat and muscle mass. BMI 16.5 and 39% significant wt loss x 1.5 years Recommend Ensure BID to increase KCALS. If possible, please provide an associated diagnosis related to the abnormal BMI, such as: Malnutrition mild, moderate or severe Anorexia Other (explain) Clinically unable to determine (explain) Thank you, Antoinette Bateman, CCS, CDIS Use of terms such as suspected, likely, concern for, or probable (associated with a specific diagnosi s that is being evaluated, monitored, or treated as if it exists) are acceptable and can be coded in the inpatient se tting, when documented at the time of discharge. Please use your independent medical judgment in providing your response. THIS QUERY IS PART OF THE PERMANENT MEDICAL RECORD
--- NOTE | 2023-09-17 14:17 | MHC.CLN ---
F/U PT IS MODERATELY MALNOURISHED SEE FULL CLINICAL NUTRITION ASSESSMENT DATED 09/15/23 PO INTAKE 50% AVERAGE REGULAR DIET PT RECEIVING ENSURE BID TO INCREASE KCALS SUPP PROVIDES 700KCALS, 40G PROTEIN WITH 100% ACCEPTANCE CONTINUE TO MONITOR PO INTAKE AND ENCOURAGE SUPPLEMENTS
[2023-09-17] MEDS: 0.9 % Sodium Chloride Flush 3 ML SYRINGE IVFLUSH ×2 (17:01→20:04)
[2023-09-17] MEDS: Furosemide 20 MG TABLET PO (17:01)
[2023-09-17] MEDS: Docusate Sodium 100 MG CAPSULE PO (20:04)
[2023-09-18] VITALS: BP 113/56; PULSE 82; RESP 20; TEMP 37.4; O2SAT 93
[2023-09-18 04:00] VITALS: BP 117/73; PULSE 82; RESP 20; TEMP 37; O2SAT 96
[2023-09-18 07:31] LABS: Hematocrit 26.8 % (37.0-47.0); Hemoglobin 8.9 g/dl (12.0-16.0); Mean Corpuscular HGB Conc 33.2 g/dl (31.0-35.0); Mean Corpuscular Volume 90.2 fL (80.0-98.0); Mean Platelet Volume 10.6 fL (9.4-12.3); Platelet Count 286 X10*3/uL (160-400); Red Blood Count 2.97 X10*6/uL (4.20-5.50); Red Cell Distribution Width 14.5 % (11.0-16.0); White Blood Count 6.8 X10*3/uL (4.8-10.8)
[2023-09-18 07:51] LABS: Anion Gap 11 (12-20); Blood Urea Nitrogen 11 mg/dL (9-16); Carbon Dioxide 30 mmol/L (22-29); Chloride 102 mmol/L (96-108); Creatinine Clr Calc Pharmacy 39.1; Estimated Glomerular Filt Rate > 60; Glucose Random 89 mg/dL (60-115); Potassium 4.2 mmol/L (3.3-5.1); Sodium 139 mmol/L (135-145)
[2023-09-18 08:00] VITALS: BP 114/60; PULSE 89; RESP 16; TEMP 36.4; O2SAT 94
[2023-09-18] MEDS: Fluticasone/Umeclidinium/Vilanterol 200/62.5/25 BLST.W.DEV 1 PUFF INHALE (08:41)
[2023-09-18] MEDS: Albuterol Sulfate (0.083%) 2.5 MG/3 ML VIAL.NEB INHALE (08:41)
[2023-09-18 08:43] VITALS: PULSE 86; RESP 18; O2SAT 92
[2023-09-18] MEDS: Apixaban 5 MG TABLET PO (09:18)
[2023-09-18] MEDS: polyethylene glycoL 3350 17 GM POWD.PACK PO (09:18)
[2023-09-18] MEDS: Bisoprolol Fumarate 5 MG TABLET 2.5 MG PO (09:18)
[2023-09-18] MEDS: 0.9 % Sodium Chloride Flush 3 ML SYRINGE IVFLUSH (09:20)
--- NOTE | 2023-09-18 10:04 | MHC.CM.PN ---
Patient is medically cleared for dc to [facility] today. Patient will dc to [facility] today at 2 PM, via [facility]. IMM addressed with Patient yesterday. CM spoke with Son/HCP/Mode at [phone] and informed him of the dc plan.
[2023-09-18 11:47] VITALS: BP 115/61; PULSE 78; RESP 20; TEMP 37; O2SAT 95
--- NOTE | 2023-09-18 11:52 | PM.DS ---
DS: Providers Provider Date of Service: 09/18/23 Date of admission: 09/13/23 19:59 Primary care physician: Robert Feliz MD Consults: 09/13/23 19:59 Consult to Vascular Surgery Routine Consulting Provider: [facility] Reason for consultation: extensive bilateral dvt DS: Diagnosis Discharge Diagnosis (1) NSVT (nonsustained ventricular tachycardia): Status: Acute (2) DVT, bilateral lower limbs: Status: Acute DS: Summary Hospital Course Hospital Course: History and physical as per admitting provider. This is a 83-year-old female with pertinent history of ALS, congestive heart failure unspecified EF, non-Hodgkin lymphoma in remission, history of CVA, COPD not on home oxygen, who presents to the emergency department for evaluation of lower extremity swelling and pain. Patient states her symptoms started 1 week prior to presentation. She noticed redness, swelling and pain of bilateral lower extremities. Her son prompted her to go to the ER. She is mostly bed-bound due to ALS. Patient denies chest discomfort, palpitations or dyspnea. No orthopnea or PND. No fever, chills, palpitations, abdominal pain, changes in urinary or bowel habits. No history of blood clots in the past as per patient. In the emergency department, imaging with extensive bilateral DVT. Vascular surgery was consulted who requested heparin drip and admission. 83-year-old woman treated for acute bilateral DVTs. She was initially started on IV heparin drip. She was seen evaluated by vascular surgery who decided do mechanical venous thrombectomy and 09/15/2023 successfully. Patient was transitioned to Eliquis 5 mg b.i.d. (vascular surgery recommended against using loading dose) she should have outpatient follow-up with vascular surgery in 2 weeks. She also had an episode of nonsustained ventricular tachycardia. She was noted to have hypokalemia and hypomagnesemia both replaced and improved. Previous echocardiogram in 2020 showed EF of 40 45%, EKG showed normal QTC. Patient was recently started on a new medication Nuedexta which can cause prolonged QTC. She can follow up with primary care provider regarding this medication and its continuation. Patient will be transferred to short-term rehab for physical therapy. Heart failure with reduced ejection fraction. No exacerbation. Continue home Lasix History of CVA. On Plavix but will stop as she has been started on Eliquis ALS On riluzole and Nuedexta COPD No exacerbation during admission. Continue home inhaler Time Attestation Discharge Coordination Time (in mins): 45 Quality: Safe Use of Opioids Does Pt have an Active Cancer Diagnosis on the Problem List?: No Quality: Stroke Does the patient have a stroke diagnosis?: No Physical Exam Vital Signs: Vital Signs: Last Vital Signs Temp 98.6 F 09/18/23 11:47 Pulse 78 09/18/23 11:47 Resp 20 09/18/23 11:47 BP 115/61 09/18/23 11:47 Pulse Ox 95 09/18/23 11:47 O2 Del Method Room Air 09/18/23 11:47 O2 Flow Rate 2 09/18/23 04:00 BMI result Body Mass Index 16.5 Appearing in no acute distress head is normocephalic atraumatic eyes pupils are PERRLA sclera is anicteric mouth throat mucous membranes are intact and moist neck is supple no lymphadenopathy, no JVD noted lung sounds are clear to auscultation heart regular rate rhythm, clear S1, S2 positive bowel sounds, abdomen is soft, nontender neuro patient is alert x3, no focal deficits, nonambulatory DS: Data Data Completed and Pending Labs on day of discharge: Laboratory Results - last 24 hr 09/18/23 06:26 WBC 6.8 RBC 2.97 L Hgb 8.9 L Hct 26.8 L MCV 90.2 MCH 30.0 MCHC 33.2 RDW 14.5 Plt Count 286 MPV 10.6 Absolute Nucleated RBC 0.000 Nucleated RBC % (auto) 0.0 Sodium 139 Potassium 4.2 Chloride 102 Carbon Dioxide 30 H Anion Gap 11 L BUN 11 Creatinine 0.66 Estim Creat Clear Calc 39.1 Estimated GFR > 60 Random Glucose 89 Calcium 9.0 Discharge Plan Discharge Anticipated Discharge Date/Time: 09/18/23 11:44 Patient Disposition: Xfer [facility] Discharge Diagnosis: Acute bilateral DVT Nonsustained venous tachycardia Hypokalemia Hypomagnesemia Referrals: [facility] [Outside] - 1 Week Robert Feliz MD [Primary Care Provider] - 1 Week Discharge Medications: New bisoprolol fumarate 5 mg Tablet 2.5 mg PO DAILY Qty: 30 0RF Eliquis 5 mg tablet 5 mg PO BID Qty: 60 0RF Continued sodium chloride 7 % solution for nebulization 4 ml inhalation BID Rx Instructions: mixed with albuterol Trelegy Ellipta 200-62.5-25 mcg blister with device 1 puff inhalation DAILY Rx Instructions: was taking spiriva albuterol sulfate 2.5 mg /3 mL (0.083 %) solution for nebulization 2.5 mg inhalation BID furosemide 40 mg Tablet 40 mg PO Q OTHER DAY furosemide 20 mg Tablet 20 mg PO Q OTHER DAY riluzole 50 mg tablet 50 mg PO BID@0600,1630 Radicava ORS 105 mg/5 mL suspension 105 mg PO DAILY Rx Instructions: TAKE FOR 10 DAYS START 09/05/23 tramadol 50 mg tablet 50 mg PO Q12H PRN (Reason: pain) Nuedexta 20-10 mg capsule 1 cap PO Q12H guaifenesin [Mucinex] 600 mg Tablet Extended Release 12hr 1,200 mg PO BID Discontinued bisoprolol fumarate 5 mg tablet 0.5 tab PO DAILY clopidogrel [Plavix] 75 mg tablet 75 mg PO DAILY 30 Days Qty: 30 0RF Discharge Orders: Discharge Order (Routine); Ordered 09/18/23 Ordered By: Hue Vitale Diet: Advance to usual diet Activity on Discharge: As tolerated Stand Alone Forms: Patient Portal Discharge page Print Language: Latvian Care Plan Goals: You will be started on a new medication or the bilateral lower extremity blood clots. Eliquis 10mg twice daily for 7 days then 5 mg twice daily Health Concerns: Acute bilateral DVT Nonsustained venous tachycardia Hypokalemia Hypomagnesemia Plan of Treatment: Follow-up with primary care provider as needed and to manage Eliquis Take all medications as prescribed Assessment: Patient treated for bilateral deep vein thrombosis, status post thrombectomy by vascular surgery Take Eliquis as prescribed
[2023-09-18 13:45] VITALS: BP 115/61
[2023-09-18] MEDS: Furosemide 40 MG TABLET PO (13:45)
== END 2023-09-18 15:30 | disposition skilled nursing facility (03) | DRG 271 ==
LOC: HO.ED 20:09 → HO.EDOVER 20:16 → HO.IMC 09-14 23:55
PROVIDERS: Physician Assistant Medical; Surgery Vascular Surgery; Admitting Provider Student in an Organized Health Care Education/Training Program; Emergency Provider Emergency Medicine; PCP Family Medicine; Visit Provider Nurse Practitioner Acute Care
PROC: 04CL3ZZ Extirpation of Matter from Left Femoral Artery, Percutaneous Approach (ICD-10-PCS; principal; 2023-09-15 10:00)
DX: I82.413 Acute embolism and thrombosis of femoral vein, bilateral (principal); C85.90 Non-Hodgkin lymphoma, unspecified, unspecified site; G12.21 Amyotrophic lateral sclerosis; I50.22 Chronic systolic (congestive) heart failure; E44.0 Moderate protein-calorie malnutrition; Z68.1 Body mass index [BMI] 19.9 or less, adult; I47.20 Ventricular tachycardia, unspecified; I82.443 Acute embolism and thrombosis of tibial vein, bilateral; J44.9 Chronic obstructive pulmonary disease, unspecified; Z66 Do not resuscitate; I82.453 Acute embolism and thrombosis of peroneal vein, bilateral; I82.433 Acute embolism and thrombosis of popliteal vein, bilateral; Z86.73 Personal history of transient ischemic attack (TIA), and cerebral infarction without residual deficits; Z79.899 Other long term (current) drug therapy
CPT/HCPCS: 36415; 37187; 76937; 80048; 83735; 83880; 85025; 85027; 85610; 85730; 93005; 93306; 93970; 93975; 94640; 99285; A4364; C1725; C1757; C1769; C1887; J1644; J3475; J3480; Q9957

== ENCOUNTER → 2023-09-13 19:39 | Outpatient (BNV) | payer MEDICARE, SELFPAY | PROVIDERS: Admitting Provider Student in an Organized Health Care Education/Training Program; Emergency Provider Emergency Medicine; Visit Provider Internal Medicine Cardiovascular Disease | DX: R94.31 Abnormal electrocardiogram [ECG] [EKG] (principal) | CPT/HCPCS: 93010 ==

== ENCOUNTER 2023-09-13 19:59 | Outpatient (BNV) | payer MEDICARE, SELFPAY | END 2023-09-17 07:00 | PROVIDERS: Admitting Provider Student in an Organized Health Care Education/Training Program; Emergency Provider Emergency Medicine; PCP Family Medicine; Visit Provider Internal Medicine Cardiovascular Disease | DX: R94.31 Abnormal electrocardiogram [ECG] [EKG] (principal); I36.1 Nonrheumatic tricuspid (valve) insufficiency; R93.1 Abnormal findings on diagnostic imaging of heart and coronary circulation | CPT/HCPCS: 93010; 93306 ==

== ENCOUNTER → 2023-09-13 19:59 | Outpatient (BNV) | payer MEDICARE, SELFPAY | PROVIDERS: Admitting Provider Student in an Organized Health Care Education/Training Program; Emergency Provider Emergency Medicine; Visit Provider Student in an Organized Health Care Education/Training Program | DX: I82.413 Acute embolism and thrombosis of femoral vein, bilateral (principal) | CPT/HCPCS: 99222; 99232; 99233; 99239 ==

== ENCOUNTER → 2023-09-13 19:59 | Outpatient (BNV) | payer MEDICARE, SELFPAY | PROVIDERS: Admitting Provider Student in an Organized Health Care Education/Training Program; Emergency Provider Emergency Medicine; Visit Provider Surgery Vascular Surgery | DX: I82.413 Acute embolism and thrombosis of femoral vein, bilateral (principal) | CPT/HCPCS: 37187; 37248; 76937; 99152; 99222; 99232 ==